=== PATIENT | female | born 1945 | race Caucasian/White ===

== ENCOUNTER 2022-12-13 11:25 | Observation (INO) ==
--- NOTE | 2022-12-13 12:15 | CT Scan Report ---
CT SCAN OF THE BRAIN WITHOUT IV CONTRAST CLINICAL HISTORY: Neurological deficit. Stroke like symptoms. COMPARISON STUDY: No priors. TECHNIQUE: Unenhanced axial CT scan of the brain is performed from the vertex to the skull base. A do se lowering technique was utilized adhering to the principles of ALARA. CT DOSE: 547.75 mGy.cm FINDINGS: Brain parenchyma: There is age-related involutional change noting mild subcortical and periventricula r microangiopathic disease. There is no hemorrhage, mass effect, or evidence of acute territorial isc hemia by CT criteria. Philip-white matter differentiation is preserved. No extra-axial fluid collection is seen. Ventricles, sulci, cisterns: Prominent secondary to involutional change. Intracranial vasculature: There is atherosclerotic calcification of the cavernous carotid and vertebr al arteries. Calvarium: Unremarkable. Sinuses and mastoids: The visualized paranasal sinuses are clear. The mastoid air cells are well pneu matized. Orbits: The bony orbits are grossly intact. There are bilateral ocular lens implants. IMPRESSION: There is no hemorrhage, mass effect, or evidence of acute territorial ischemia by CT andrea mena. ACT 112: Negative or not required by law. Electronically signed by: Wan Gotti M.D. 12/13/2022 12:14 PM
[2022-12-13 12:22] LABS: iSTAT Creatinine 2.3 mg/dl (0.6-1.3); iSTAT Hemoglobin 12.2 g/dl (12.0-16.0); iSTAT Ionized Calcium 1.26 mmol/l (1.12-1.32); iSTAT Potassium 4.4 mmol/L (3.3-5.0)
[2022-12-13 12:38] LABS: Hematocrit (blood only) 34.7 % (37.0-47.0); Hemoglobin 11.3 g/dl (12.0-16.0); Mean Corpuscular Hemoglobin 28.3 pg (25.0-34.0); Mean Corpuscular Hgb Conc 32.6 g/dL (32.0-36.0); Mean Platelet Volume 10.7 fL (9.4-12.4); Platelet Count 232 K/uL (130-400); RDW Coefficient of Variation 14.8 % (11.5-14.5); RDW Standard Deviation 47.4 fL (36.4-46.3); Red Blood Count 3.99 M/uL (4.20-5.40); White Blood Count 6.19 K/ul (4.8-10.8)
--- NOTE | 2022-12-13 12:38 | XRay Report ---
XR chest 1V not portable CLINICAL HISTORY: stroke alert TECHNIQUE: Single frontal radiograph of the chest was obtained. Comparison: None available at the time of this dictation. FINDINGS: Median sternotomy wires are unchanged. Cardiomegaly is noted. The aortic arch is calcified. The lungs are clear. No evidence of pleural effusion or pneumothorax. IMPRESSION: No acute chest disease. ACT 112: Negative or not required by law. Electronically signed by: Jakob Fairbanks M.D. 12/13/2022 12:36 PM
[2022-12-13 12:44] LABS: INR 0.9 (0.9-1.1); Partial Thromboplastin Ratio 0.9; Partial Thromboplastin Time 25.9 Seconds (21.0-31.0); Prothrombin Time 10.3 Seconds (9.0-12.0)
[2022-12-13 13:05] LABS: Albumin Globulin Ratio 1.8 (0.9-2); Albumin Level 4.4 gm/dl (3.4-5.0); BUN Creatinine Ratio 14.7 (10-20); Bilirubin,Total 0.5 mg/dl (0.2-1.0); Calcium 9.9 mg/dl (8.6-10.3); Creatinine Clr Calc Pharmacy 27.4 ml/min; Est GFR (African American) 26.4 ml/min; Est GFR (Non-African American) 22.8 ml/min; Globulin 2.5 gm/dl (2.5-4.0); Potassium 4.4 mmol/L (3.5-5.1); Total Protein 6.9 gm/dl (6.0-8.3)
[2022-12-13] MEDS ORDERED: ASPIRIN 81 MG CHEW PO STA (13:45)
[2022-12-13] MEDS ORDERED: SODIUM CHLORIDE 0.9% 500 ML IV ONE (13:45)
--- NOTE | 2022-12-13 13:48 | Emergency Department Note ---
Impression & Plan Stroke-like symptoms, Sudden visual loss of left eye ED Provider Note Name: PERLA COONEY Age: 77 Sex: F Arrives Via: Walk-In Informant: Patient ED Provider: Terrence Fine MD Chief Complaint: Visual changes Impression: As per impressions above Medical Decision Making: Pleasant 77-year-old female arrives for evaluation of visual changes and some mild ataxia. She has a history of diabetes, hypertension, dyslipidemia, CKD and was recently hospitalized for what sounds to be Takotsubo's and has an external defibrillator in place. Patient is on aspirin 81 mg daily without history of stroke or CAD. Does not take any blood thinners. Patient was seen by nutrition and dietetics instructor today who advised she go to the ER for evaluation. Patient on exam no neurodeficits other than she has loss of central visual acuity. Given concerns that she may have had CVA will need to come in for further work-up. Patient is agreeable to this and hospitalist was consulted for further manag ement. She was given a full dose aspirin 324 mg p.o. Of note initial CT head and labs are unremarkable other than her creatinine is 2.0. This will hold off on CT angio of the head and neck. Of note symptoms have been ongoing for now at least the last 4 days. There is no indication for interventional neurology or thrombolytics at this time. Triage/Nursing Notes reviewed by Me Differentials:Stroke, retinal artery occlusion, venous occlusion, dissection, intracranial hemorrhage, mass effect, electrolyte imbalance, retinal bleed amongst many other pathologies considered Vital Signs: reviewed and remarkable for no significant abnormalities Interventions: Aspirin 324 mg p.o., normal saline bolus Labs:Reviewed and remarkable for elevated creatinine patient unsure what her baseline is. All other labs reviewed by me Imaging:CT of the head without contrast as per my informal interpretation reveals no intracranial hemorrhage or mass effect. This was confirmed by radiologist. EKG:As per my interpretation. Indication strokelike symptoms. Bundle-branch block at 80 bpm. No ectopy or ischemia no previous for comparison. Cardiac/Tele Monitoring: Cardiac Monitoring: An Order was placed for continuous cardiac monitoring. The monitor shows a rate of 80 with a normal sinus rhythm. Consults:João joyner service Plan: Disposition:Hospitalization Condition: Good History of Present Illness:77-year-old female arrives for evaluation of neurologic deficits. Patient notes on Dheeraj (4 days ago) she started having left visual issues. She states she just cannot see anything in the center of her vision but that peripheral seems to be working. She denies any issues with her right eye. She also notes at this time she felt like she just could not be walking straight and has been using her cane more. Patient denies any weakness in arms or legs or paresthesias. Denies any falls, trauma, injuries. No associated nausea vomiting dizziness. No medications prior to arrival. She has no history of stroke. Patient was recently hospitalized at [facility] for chest pain. She had a catheterization at that time which she states was clean. She states she is wearing a vest because her heart is not squeezing well enough. Past History:Diabetes, hypertension, dyslipidemia, CKD Home Medications:Lisinopril, hydrochlorothiazide, statin, aspirin 81 mg Allergies:nkda Vitals:Blood Pressure: 179/77, Pulse 84, RR 18, T 36.7C, O2 98% on RA Physical Exam: GENERAL: Patient is well appearing and in no acute distress. EYES: No scleral icterus, unremarkable pupils. ENT: Mucous membranes moist, no nasal congestion. NECK: No masses appreciated, nomeningismus, trachea is midline. RESPIRATORY: No dyspnea. Clear to auscultation and equal bilaterally. No wheeze, no rhonchi. CARDIOVASCULAR: Regular rate and rhythm.No murmurs, rubs, gallops appreciated. GASTROINTESTINAL: Abdomen soft, non-tender, no peritonitis.Bowel sounds positive.No masses appreciated. BACK: No midline tenderness, no CVA tenderness EXTREMITIES: Normal motion all extremities, no cyanosis, no edema. NEUROLOGIC: Alert and oriented, patient unable to really visualize anything in the central vision on the left eye but otherwise no focal neurologic deficits appreciated SKIN: No rash, no jaundice, no diaphoresis. PSYCH: Appropriate GCS: 15 ED Course: Times/Reassessments: Patient stable no distress denies any significant concerns Terrence Fine MD Past Med/Surg History Medical History (Updated 12/13/22 @ 14:51 by Terrence Fine MD) Ambulatory dysfunction Depression Diabetes mellitus type 2 in nonobese HLD (hyperlipidemia) Stroke-like symptoms Takotsubo syndrome Social History Smoking Status: Never smoker Feels Safe at Home: Yes Allergies Allergies Allergy/AdvReac Type Severity Reaction Status Date / Time No Known Allergies Allergy Unverified 12/13/22 14:20 Home Meds Home Medications Medication Instructions Recorded Confirmed aspirin 81 mg tablet,delayed 81 mg PO QAM 12/13/22 12/13/22 release atorvastatin 80 mg tablet 80 mg PO QAM 12/13/22 12/13/22 buspirone 10 mg tablet 10 mg PO HS 12/13/22 12/13/22 dapagliflozin propanediol 10 mg 10 mg PO QAM 12/13/22 12/13/22 tablet (Farxiga) escitalopram oxalate 10 mg tablet 10 mg PO QAM 12/13/22 12/13/22 famotidine 20 mg tablet 20 mg PO QAM 12/13/22 12/13/22 furosemide 20 mg tablet 20 mg PO QAM 12/13/22 12/13/22 hydroxyzine HCl 25 mg tablet 25 mg PO DAILY PRN Panic Attack(S) 12/13/22 12/13/22 lisinopril 20 mg tablet 40 mg PO QAM 12/13/22 12/13/22 metoprolol succinate 50 mg 50 mg PO QAM 12/13/22 12/13/22 tablet,extended release 24 hr Results & Data (ED) Vital Signs Vital Signs - 24 hr 12/13/22 11:33 12/13/22 13:34 12/13/22 13:34 Temperature 36.7 C Temperature Source Temporal Artery Scan Pulse Rate 84 Pulse Rate [Apical] Pulse Rhythm [Apical] Respiratory Rate 18 Blood Pressure 179/77 H Blood Pressure [Right Arm] Blood Pressure Mean 111 Blood Pressure Mean [Right Arm] Blood Pressure Position Sitting Pulse Oximetry 99 98 98 Oxygen Delivery Method Room Air Room Air Sepsis New/Unexplained Change in Mental Status N/A Sepsis Action Taken by Nursing No Action Required 12/13/22 13:45 12/13/22 14:01 Temperature Temperature Source Pulse Rate 84 Pulse Rate [Apical] 78 Pulse Rhythm [Apical] Regular Respiratory Rate 20 Blood Pressure Blood Pressure [Right Arm] 156/67 H Blood Pressure Mean Blood Pressure Mean [Right Arm] 96 Blood Pressure Position Pulse Oximetry 98 Oxygen Delivery Method Room Air Sepsis New/Unexplained Change in Mental Status Sepsis Action Taken by Nursing Laboratory Data 12/13/22 12:04 12/13/22 12:04 Lab Results 12/13/22 12/13/22 12/13/22 Range/Units 12:04 12:04 12:04 WBC 6.19 (4.8-10.8) K/ul RBC 3.99 L (4.20-5.40) M/uL Hgb 11.3 L (12.0-16.0) g/dl POC Hgb (12.0-16.0) g/dl Hct 34.7 L (37.0-47.0) % POC Hct (37-47) % MCV 87.0 (80.0-100.0) fL MCH 28.3 (25.0-34.0) pg MCHC 32.6 (32.0-36.0) g/dL RDW Std Deviation 47.4 H (36.4-46.3) fL RDW Coeff of David 14.8 H (11.5-14.5) % Plt Count 232 (130-400) K/uL MPV 10.7 (9.4-12.4) fL PT 10.3 (9.0-12.0) Seconds INR 0.9 (0.9-1.1) APTT 25.9 (21.0-31.0) Seconds PTT Ratio 0.9 POC Sodium (135-144) mmol/L Sodium 139 (136-145) mmol/L POC Potassium (3.3-5.0) mmol/L Potassium 4.4 (3.5-5.1) mmol/L POC Chloride (101-112) mmol/L Chloride 108 H (98-107) mmol/L Carbon Dioxide 23 (21-32) mmol/L POC Total CO2 (24-31) mmol/L Anion Gap 8 (3-11) POC Anion Gap (16-25) mmol/L POC BUN (7-18) mg/dl BUN 30 H (6-23) mg/dl Creatinine 2.04 H (0.6-1.2) mg/dl POC Creatinine (0.6-1.3) mg/dl Est Cr Clr Drug Dosing 27.4 ml/min Est GFR ( Amer) 26.4 ml/min Est GFR (Non-Af Amer) 22.8 ml/min BUN/Creatinine Ratio 14.7 (10-20) Glucose 116 H (70-99(Fasting)) mg/dl POC Glucose (70-99) mg/dl POC Glucose (other) (70-99) mg/dl Calcium 9.9 (8.6-10.3) mg/dl POC Ioniz Calcium Gerald (1.12-1.32) mmol/l Magnesium 2.0 (1.7-2.4) mg/dl Total Bilirubin 0.5 (0.2-1.0) mg/dl AST 19 (13-39) U/L ALT 12 (7-52) U/L Alkaline Phosphatase 98 (34-104) U/L Total Protein 6.9 (6.0-8.3) gm/dl Albumin 4.4 (3.4-5.0) gm/dl Globulin 2.5 (2.5-4.0) gm/dl Albumin/Globulin Ratio 1.8 (0.9-2) 12/13/22 12/13/22 Range/Units 12:10 14:25 WBC (4.8-10.8) K/ul RBC (4.20-5.40) M/uL Hgb (12.0-16.0) g/dl POC Hgb 12.2 (12.0-16.0) g/dl Hct (37.0-47.0) % POC Hct 36 L (37-47) % MCV (80.0-100.0) fL MCH (25.0-34.0) pg MCHC (32.0-36.0) g/dL RDW Std Deviation (36.4-46.3) fL RDW Coeff of David (11.5-14.5) % Plt Count (130-400) K/uL MPV (9.4-12.4) fL PT (9.0-12.0) Seconds INR (0.9-1.1) APTT (21.0-31.0) Seconds PTT Ratio POC Sodium 141 (135-144) mmol/L Sodium (136-145) mmol/L POC Potassium 4.4 (3.3-5.0) mmol/L Potassium (3.5-5.1) mmol/L POC Chloride 107 (101-112) mmol/L Chloride (98-107) mmol/L Carbon Dioxide (21-32) mmol/L POC Total CO2 22 L (24-31) mmol/L Anion Gap (3-11) POC Anion Gap 17.0 (16-25) mmol/L POC BUN 29 H (7-18) mg/dl BUN (6-23) mg/dl Creatinine (0.6-1.2) mg/dl POC Creatinine 2.3 H (0.6-1.3) mg/dl Est Cr Clr Drug Dosing ml/min Est GFR ( Amer) ml/min Est GFR (Non-Af Amer) ml/min BUN/Creatinine Ratio (10-20) Glucose (70-99(Fasting)) mg/dl POC Glucose 131 H (70-99) mg/dl POC Glucose (other) 115 H (70-99) mg/dl Calcium (8.6-10.3) mg/dl POC Ioniz Calcium Gerald 1.26 (1.12-1.32) mmol/l Magnesium (1.7-2.4) mg/dl Total Bilirubin (0.2-1.0) mg/dl AST (13-39) U/L ALT (7-52) U/L Alkaline Phosphatase (34-104) U/L Total Protein (6.0-8.3) gm/dl Albumin (3.4-5.0) gm/dl Globulin (2.5-4.0) gm/dl Albumin/Globulin Ratio (0.9-2) Administered Medications Discontinued Medications Aspirin (Aspirin 81 Mg Chew) 324 mg PO NOW STA Stop: 12/13/22 13:46 Last Admin: 12/13/22 13:57 Dose: 324 mg Documented By: ARLENE Sodium Chloride (Nss 1000ml) 500 mls @ 999 mls/hr IV .Q31M ONE Stop: 12/13/22 14:15 Last Admin: 12/13/22 13:57 Dose: 999 mls/hr Documented By: ARLENE Imaging Data Radiologist's Impression: Chest X-Ray 12/13/22 11:44 XR chest 1V not portable CLINICAL HISTORY: stroke alert TECHNIQUE: Single frontal radiograph of the chest was obtained. Comparison: None available at the time of this dictation. FINDINGS: Median sternotomy wires are unchanged. Cardiomegaly is noted. The aortic arch is calcified. The lungs are clear. No evidence of pleural effusion or pneumothorax. IMPRESSION: No acute chest disease. ACT 112: Negative or not required by law. Electronically signed by: Jakob Fairbanks M.D. 12/13/2022 12:[address] 12/13/22 11:44 CT SCAN OF THE BRAIN WITHOUT IV CONTRAST CLINICAL HISTORY: Neurological deficit. Stroke like symptoms. COMPARISON STUDY: No priors. TECHNIQUE: Unenhanced axial CT scan of the brain is performed from the vertex to the skull base. A dose lowering technique was utilized adhering to the principles of ALARA. CT DOSE: 547.75 mGy.cm FINDINGS: Brain parenchyma: There is age-related involutional change noting mild subcortical and periventricular microangiopathic disease. There is no hemorrhage, mass effect, or evidence of acute territorial ischemia by CT criteria. Philip-white matter differentiation is preserved. No extra-axial fluid collection is seen. Ventricles, sulci, cisterns: Prominent secondary to involutional change. Intracranial vasculature: There is atherosclerotic calcification of the cavernous carotid and vertebral arteries. Calvarium: Unremarkable. Sinuses and mastoids: The visualized paranasal sinuses are clear. The mastoid air cells are well pneumatized. Orbits: The bony orbits are grossly intact. There are bilateral ocular lens implants. IMPRESSION: There is no hemorrhage, mass effect, or evidence of acute territorial ischemia by CT criteria. ACT 112: Negative or not required by law. Electronically signed by: Wan Gotti M.D. 12/13/2022 12:14 PM Discharge Plan Visit Data Chief Complaint: Stroke/CVA Symptoms Stated Complaint: GETTING TEST DONE ON EYE, REF BY DOC ED Provider: Terrence Fine Discharge Problem: Stroke-like symptoms, Sudden visual loss of left eye Forms Stand Alone Forms: My [facility] [employer] Prescriptions Prescriptions: No Action atorvastatin 80 mg tablet 80 mg PO QAM metoprolol succinate 50 mg tablet extended release 24 hr 50 mg PO QAM lisinopril 20 mg tablet 40 mg PO QAM buspirone 10 mg tablet 10 mg PO HS furosemide 20 mg tablet 20 mg PO QAM Rx Instructions: take 2nd dose 6 hours later for 3 lb weight gain overnight famotidine 20 mg tablet 20 mg PO QAM escitalopram oxalate 10 mg tablet 10 mg PO QAM Farxiga 10 mg tablet 10 mg PO QAM hydroxyzine HCl 25 mg tablet 25 mg PO DAILY PRN (Reason: Panic Attack(S)) aspirin [Aspirin Low-Strength] 81 mg Tablet,Delayed Release (Dr/Ec) 81 mg PO QAM Referrals Referrals: PCP,NO [Physician] -
[2022-12-13] MEDS ORDERED: MAGNESIUM HYDROXIDE SUSP 30 ML UDC PO PRN (13:58)
[2022-12-13] MEDS ORDERED: ONDANSETRON INJ 2 MG/ML 2 ML VIAL IV PRN (13:58)
[2022-12-13] MEDS ORDERED: POLYETHYLENE (MIRALAX) 17 GM PACK PO PRN (13:58)
[2022-12-13] MEDS ORDERED: ALUMINUM/MAGNESIUM SUSP 30 ML UDC PO PRN (13:58)
[2022-12-13] MEDS ORDERED: ACETAMINOPHEN 325 MG TAB PO PRN (13:58)
--- NOTE | 2022-12-13 14:04 | History & Physical Report ---
Date of Service December 13, 2022 Assessment & Plan (1) Central retinal artery occlusion of left eye: (2) CKD stage 3 due to type 2 diabetes mellitus: (3) HTN (hypertension): (4) HLD (hyperlipidemia): (5) Diabetes mellitus type 2 in nonobese: (6) History of aortic valve replacement using Konno procedure: (7) Takotsubo syndrome: (8) Depression: Plan 77-year-old female that presented to the ED today with complaints of left visual changes that started on Sunday. Reports peripheral vision okay. Seen by [place] retinal specialist today and Dx with central retinal left artery occlusion (CRAO) and advised to proceed to the ER. In the ED chest x- ray negative for acute cardiopulmonary disease, head CT without contrast negative for ICH/midline shift. Patient presented to [facility] on September 20 with chest pain proceeding with heart catheterization showing epicardial CAD; ECHO at that point was EF 30 to 35%. Has an external ICD for treatment of Takotsubo. She sees Dr. Gardner in [place] from Cardiology. Progressive CKD since 2019, baseline creatinine in mid ones, nonproteinuric. Recent decline in recent renal function secondary to overdiuresis/UTIs. Outpatient renal ultrasound normal kidney size with cysts. Additional PMH includes CAD status post bioprosthetic aortic replacement and [facility] 2011, HTN, depression, and NIDDM. No leukocytosis. Creatinine 2.04. Baseline creatinine 1.3-1.7; today 2.01. Closely follow renal function. Full stroke work up, head/neck CTA, ECHO, CRP, ESR, MRI as external defibrillator can be removed neurology consult based on results. Patient already on high-dose and baby aspirin; not on any anticoagulation; per recommendations by Neurology via [place] [facility]. Central retinal artery occlusion (CRAO) of left eye: Head CT without contrast negative MRI ordered (external defibrillator) Head/neck CTA ordered ECHO ordered Start Plavix per recommendations by Neuro via [facility] On a high-dose statin and received ASA 324 in ED Neurology consult if abnormalities noted on neuro imaging. CKD stage III: acute uncontrolled Progressive CKD since 2019, baseline creatinine in mid ones, nonproteinuric. Recent decline in recent renal function secondary to overdiuresis/UTIs per [facility]. Creatinine 2.04 today; will hold nephrotoxic agents. Closely monitor renal function; BMP in AM HTN: Chronic stable Takes metoprolol and lisinopril Continue metoprolol; hold lisinopril due to nephrotoxicity HLD: Chronic stable Takes high-dose atorvastatin; continue Check fasting lipid panel in AM Depression: Chronic stable Takes buspirone; continue Diabetes mellitus type 2: Chronic stable Last A1c 7.0; recheck while inpatient Takes SGLT2 inhibitor Farxiga; continue Takotsubo syndrome: acute uncontrolled As Life[employer]est and external AICD on Follows with [facility] Cardiology History of aortic valve replacement using Kono procedure: chronic stable 2011 at [facility] Follows with Dr. Gardner at [facility] Disposition: PCP: Dr. Jade CODE STATUS: Full code VTE prophylaxis: Lovenox SQ I spent a total of 88 minutes coordinating, documenting, and providing care for this patient excluding time spent in the performance of separately billed services. All of the aforementioned completed while collaborating with the assigned attending physician for a full treatment plan. Please see their addendum for further details. History of Present Illness Chief Complaint: ambulatory dysfunction and visual changes Primary Care Provider: Elías Jade MD Ms. Rodríguez is a 77-year-old female that presented to the ED today with complaints of left visual changes that started on Sunday. Reports unique pheral vision okay. Was seen by [place] retinal specialist today Dr. Gauthier and diagnosed with central retinal left artery occlusion and advised to proceed to the ER. In the ED chest x-ray negative for acute cardiopulmonary disease, head CT without contrast negative for ICH/midline shift. Patient presented to [facility] on September 20 with chest pain proceeding with heart catheterization showing epicardial CAD; ECHO at that point was EF 30 to 35%. Has an external ICD for treatment of Takotsubo. She sees Dr. Gardner in [place] from Cardiology. Progressive CKD since 2019, baseline creatinine in mid ones, nonproteinuric. Recent decline in recent renal function secondary to overdiuresis/UTIs. Outpatient renal ultrasound normal kidney size with cysts. Additional PMH includes CAD status post bioprosthetic aortic replacement and [facility] 2011, HTN, depression, and NIDDM. Today chest x-ray negative for acute cardiopulmonary disease, head CT negative ICH or midline shift. No leukocytosis. Creatinine 2.04. Baseline creatinine Pt denies SCOTT, dizziness, tinnitus, abdominal pain or tenderness, LOC, vertigo symptoms, recent illness, urinary or bowel changes, recent falls or trauma. Pt [place] but able to answer all questions appropriately. Patient AAOx4. CN II through XII grossly intact. Euvolemic on exam Repeat ECHO, CRP, ESR, MRI as external defibrillator can be removed neurology consult. Patient already on high-dose and baby aspirin; not on any anticoagulation. Patient will be admitted for further evaluation and management. Please see A/P for further details. Allergies Allergy/AdvReac Type Severity Reaction Status Date / Time No Known Allergies Allergy Unverified 12/13/22 14:20 Home Medications Medication Instructions Recorded Confirmed Type aspirin 81 mg tablet,delayed 81 mg PO QAM 12/13/22 12/13/22 History release atorvastatin 80 mg tablet 80 mg PO QAM 12/13/22 12/13/22 History buspirone 10 mg tablet 10 mg PO HS 12/13/22 12/13/22 History dapagliflozin propanediol 10 mg 10 mg PO QAM 12/13/22 12/13/22 History tablet (Farxiga) famotidine 20 mg tablet 20 mg PO QAM 12/13/22 12/13/22 History furosemide 20 mg tablet 20 mg PO QAM 12/13/22 12/13/22 History hydroxyzine HCl 25 mg tablet 25 mg PO DAILY PRN Panic Attack(S) 12/13/22 12/13/22 History lisinopril 20 mg tablet 40 mg PO QAM 12/13/22 12/13/22 History metoprolol succinate 50 mg 50 mg PO QAM 12/13/22 12/13/22 History tablet,extended release 24 hr Past Med/Surg History Medical History (Updated 12/13/22 @ 15:35 by RODRIGUEZ Rai) Ambulatory dysfunction 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 Depression Diabetes mellitus type 2 in nonobese HLD (hyperlipidemia) HTN (hypertension) Stroke-like symptoms Takotsubo syndrome Surgical History (Updated 12/13/22 @ 15:35 by RODRIGUEZ Rai) History of aortic valve replacement using Konno procedure Social History Smoking Status: Never smoker Feels Safe at Home: Yes Review of Systems Review of Systems: Neuro: (-) Falls, trauma, slurred speech HEENT: (-) SCOTT, dizziness, dysphagia, visual or auditory changes CV: (-) CP, palpitations, swelling Resp: (-) SOB GI: (-) appetite changes, N/V/D, bowel changes : (-) urinary changes Skin: (-) rashes Psych: (-) anxiety, depression Physical Exam Physical Exam: Neuro: AAOx4, PERRLA, no aphagia, memory changes, CNII-XII grossly intact HEENT: head normocephalic, moist mucus membranes CV: S1/S2, (-) M/G/R, (-) edema, cap refill < 3 seconds Resp: Lungs CTA in all [place]. On RA GI: Abdomen S/NT/ND, Ax4 bowel sounds, (-) CVA tenderness Musculoskeletal: 5/5 B/L UE strength, 5/5 B/L LE strength. No gait disturbance Skin: (-) rashes , (-) erythema. Psych: euthymic mood Results & Data Results & Data Vital Signs (Past 12 Hours) Vital Signs Temp Pulse Pulse Resp BP BP Pulse Ox 12/13/22 13:45 78 20 156/67 H 98 12/13/22 13:34 98 12/13/22 13:34 98 12/13/22 11:33 36.7 C 84 18 179/77 H 99 O2 Del Method 12/13/22 13:45 Room Air 12/13/22 13:34 12/13/22 13:34 Room Air 12/13/22 11:33 Room Air Laboratory Results Short CBC 12/13/22 Range/Units 12:04 WBC 6.19 (4.8-10.8) K/ul Hgb 11.3 L (12.0-16.0) g/dl Hct 34.7 L (37.0-47.0) % Plt Count 232 (130-400) K/uL BMP 12/13/22 12:04 Sodium 139 Potassium 4.4 Chloride 108 H Carbon Dioxide 23 BUN 30 H Creatinine 2.04 H Glucose 116 H Calcium 9.9 Liver Function 12/13/22 Range/Units 12:04 Total Bilirubin 0.5 (0.2-1.0) mg/dl AST 19 (13-39) U/L ALT 12 (7-52) U/L Alkaline Phosphatase 98 (34-104) U/L Albumin 4.4 (3.4-5.0) gm/dl Diagnostic Findings Chest X-Ray 12/13/22 11:44 XR chest 1V not portable CLINICAL HISTORY: stroke alert TECHNIQUE: Single frontal radiograph of the chest was obtained. Comparison: None available at the time of this dictation. FINDINGS: Median sternotomy wires are unchanged. Cardiomegaly is noted. The aortic arch is calcified. The lungs are clear. No evidence of pleural effusion or pneumothorax. IMPRESSION: No acute chest disease. ACT 112: Negative or not required by law. Electronically signed by: Jakob Fairbanks M.D. 12/13/2022 12:[address] 12/13/22 11:44 CT SCAN OF THE BRAIN WITHOUT IV CONTRAST CLINICAL HISTORY: Neurological deficit. Stroke like symptoms. COMPARISON STUDY: No priors. TECHNIQUE: Unenhanced axial CT scan of the brain is performed from the vertex to the skull base. A dose lowering technique was utilized adhering to the principles of ALARA. CT DOSE: 547.75 mGy.cm FINDINGS: Brain parenchyma: There is age-related involutional change noting mild subcortical and periventricular microangiopathic disease. There is no hemorrhage, mass effect, or evidence of acute territorial ischemia by CT criteria. Philip-white matter differentiation is preserved. No extra-axial fluid collection is seen. Ventricles, sulci, cisterns: Prominent secondary to involutional change. Intracranial vasculature: There is atherosclerotic calcification of the cavernous carotid and vertebral arteries. Calvarium: Unremarkable. Sinuses and mastoids: The visualized paranasal sinuses are clear. The mastoid air cells are well pneumatized. Orbits: The bony orbits are grossly intact. There are bilateral ocular lens implants. IMPRESSION: There is no hemorrhage, mass effect, or evidence of acute territorial ischemia by CT criteria. ACT 112: Negative or not required by law. Electronically signed by: Wan Gotti M.D. 12/13/2022 12:14 PM Code Status & VTE Plan Code Status Full code in the event of cardiac or respiratory arrest VTE Prophylaxis Plan VTE Prophylaxis will be ordered: Yes Supervising Physician Co-Signing Physician Notes Pt seen and examined by pa, care coordinated w/ Hattie. RODRIGUEZ Loya, pls refer to her note above for further detail. Pt is a 77 yo F that presents with complaints of left central visual loss that started on Sunday. Reports peripheral vision okay. Seen by [place] retinal specialist today and was diagnosed with central retinal left artery occlusion (CRAO) and advised to proceed to the ER. In the ED chest x-ray negative for acute cardiopulmonary disease, head CT without contrast negative for ICH/midline shift. Currently she is laying in bed in NAD. Denies any headache or eye pain. Feels that vision maybe slightly better. She received ASA 324 mg in the ED. At home takes atorvastatin 80 and ASA 81. She is awake and able to answer questions appropriately. No weakness in any extremities. No sensory loss. Lungs are clear to auscultation. Heart sounds regular. Abdomen obese, soft, nontender. Skin is warm and dry. Pertinent recent medical hx - Patient presented to [facility] on September 20 with chest pain proceeding with heart catheterization showing epicardial CAD; ECHO at that point was EF 30 to 35%. Has an external ICD for treatment of Takotsubo. She sees Dr. Gardner in [place] from Cardiology. Progressive CKD since 2019, baseline creatinine in mid ones, nonproteinuric. Recent decline in recent renal function secondary to overdiuresis/UTIs. Additional PMH includes CAD status post bioprosthetic aortic replacement at [facility] 2011, HTN, depression, and NIDDM. Discussed w/ neurology - Brain MRI ordered, obtain CTA head and neck (and monitor renal function closely given contrast), echo. Patient already on high- dose statin and baby aspirin -> will switch to plavix. Cont. to closely monitor. Discuss further w/ neurology if imaging studies abnormal. MD Annie
[2022-12-13] MEDS: Patient's ALLERGY Info needs ENTERED SCH ×5 (14:42→18:25)
[2022-12-13] MEDS: CLOPIDOGREL BISULFATE 75 MG TAB PO SCH (18:12)
[2022-12-13] MEDS: ATORVASTATIN 40 MG TAB PO SCH (18:12)
[2022-12-13] MEDS: METOPROLOL SUCC 50MG EXT REL TAB PO SCH (18:13)
[2022-12-13] MEDS: FAMOTIDINE 20 MG TAB PO SCH (18:13)
--- NOTE | 2022-12-13 19:33 | Magnetic Resonance Report ---
MR ANGIOGRAM OF THE NECK WITHOUT IV CONTRAST CLINICAL HISTORY: Strokelike symptoms. COMPARISON STUDY: No priors. TECHNIQUE: Axial 2-D and 3-D [id number] MR angiography of the neck is performed. 3-D reformats ar e created and assessed. All measurements were calculated based on NASCET criteria. IV contrast was no t administered for this examination. FINDINGS: Visualized portions of the thoracic aorta are normal in caliber. The aortic arch demonstrat es bovine variant anatomy. The subclavian arteries appear patent bilaterally. The right common caroti d artery is widely patent, as are the right internal and external carotid arteries. The left common c arotid artery is widely patent, as are the left internal and external carotid arteries. The vertebral arteries are widely patent. The vertebral arteries are codominant. The visualized intracranial vesse ls at the skull base appear patent. IMPRESSION: Unremarkable unenhanced MR angiogram of the neck. ACT 112: Negative or not required by law. Electronically signed by: Wan Gotti M.D. 12/13/2022 7:32 PM
--- NOTE | 2022-12-13 19:36 | Magnetic Resonance Report ---
MR ANGIOGRAM OF THE BRAIN CLINICAL HISTORY: Blurry vision. Stroke like symptoms. COMPARISON STUDY: No priors. TECHNIQUE: 3-D [id number] MR angiography of the intracranial circulation is performed. 3-D tumble views are created and assessed. IV contrast was not administered for this examination. FINDINGS: The internal carotid arteries are widely patent bilaterally, as are the anterior and middle cerebral arteries. The right A1 segment is atretic. The vertebrobasilar system and posterior cerebra l arteries are widely patent. The vertebral arteries are codominant. There is origin of the rig ht posterior cerebral artery. There is no aneurysm, high-grade stenosis, or focal vessel cutoff seen throughout the intracranial circulation. The brain parenchyma is normal as visualized. IMPRESSION: Unremarkable MR angiogram of the brain. ACT 112: Negative or not required by law. Electronically signed by: Wan Gotti M.D. 12/13/2022 7:35 PM
[2022-12-13] MEDS ORDERED: busPIRone 5 MG TAB PO SCH (21:00)
[2022-12-13] MEDS ORDERED: GLUCOSE 40% GEL 15 GM TUBE PO PRN (21:15)
[2022-12-13] MEDS ORDERED: DEXTROSE 50% 50 ML SYRINGE IV PRN (21:15)
[2022-12-13] MEDS ORDERED: CARBOHYDRATES FOR HYPOGLYCEMIA PO PRN (21:15)
[2022-12-13] MEDS ORDERED: GLUCAGON FOR INJ 1 MG VIAL SQ PRN (21:15)
[2022-12-13] MEDS ORDERED: GLUCOSE 10 TAB/TUBE PO PRN (21:15)
[2022-12-13] MEDS ORDERED: PHARMACY GLYCEMIC MGMT CONSULT PRN (21:15)
[2022-12-14 06:28] LABS: Hematocrit (blood only) 30.8 % (37.0-47.0); Hemoglobin 9.9 g/dl (12.0-16.0); Mean Corpuscular Hemoglobin 27.9 pg (25.0-34.0); Mean Corpuscular Hgb Conc 32.1 g/dL (32.0-36.0); Mean Corpuscular Volume 86.8 fL (80.0-100.0); Mean Platelet Volume 10.2 fL (9.4-12.4); Platelet Count 197 K/uL (130-400); RDW Coefficient of Variation 14.8 % (11.5-14.5); RDW Standard Deviation 47.8 fL (36.4-46.3); Red Blood Count 3.55 M/uL (4.20-5.40); White Blood Count 4.88 K/ul (4.8-10.8)
[2022-12-14 06:46] LABS: Albumin Globulin Ratio 1.4 (0.9-2); Albumin Level 3.6 gm/dl (3.4-5.0); BUN Creatinine Ratio 15.2 (10-20); Bilirubin,Total 0.6 mg/dl (0.2-1.0); Calcium 9.6 mg/dl (8.6-10.3); Chol HDL Ratio 2.9 (0-5); Creatinine Clr Calc Pharmacy 27.8 ml/min; Est GFR (African American) 27.4 ml/min; Est GFR (Non-African American) 23.6 ml/min; Globulin 2.6 gm/dl (2.5-4.0); Potassium 4.6 mmol/L (3.5-5.1); Total Protein 6.2 gm/dl (6.0-8.3)
[2022-12-14 07:17] LABS: Estimated Average Glucose 166 mg/dl; Hemoglobin A1C 7.4 % (4.5-5.6)
--- NOTE | 2022-12-14 07:39 | Ultrasound Report ---
CAROTID ARTERY ULTRASOUND CLINICAL HISTORY: Central retinal artery occlusion. COMPARISON STUDY: MRA of the neck December 13, 2022. TECHNIQUE: Real-time, grayscale, and color Doppler sonography of the carotid and vertebral arteries w as performed. Images were viewed in the transverse and longitudinal planes. FINDINGS: There is mild atherosclerotic plaque. Velocity measurements are listed below. COMMON CAROTID PEAK SYSTOLIC VELOCITY (CM/S): RIGHT 88 LEFT 94 ICA PEAK SYSTOLIC VELOCITY (CM/S): RIGHT 84 LEFT 117 Systolic ratios between the internal to common carotid arteries were normal. Antegrade flow is seen in the vertebral arteries. The external carotid arteries are patent. IMPRESSION: Mild atherosclerotic plaque without evidence for a hemodynamically significant stenosis. ACT 112: Negative or not required by law. Electronically signed by: Arnaldo Vinson M.D. 12/14/2022 7:38 AM
[2022-12-14] MEDS: ATORVASTATIN 40 MG TAB PO SCH (08:45)
[2022-12-14] MEDS: CLOPIDOGREL BISULFATE 75 MG TAB PO SCH (08:46)
[2022-12-14] MEDS: METOPROLOL SUCC 50MG EXT REL TAB PO SCH (08:46)
[2022-12-14] MEDS: FAMOTIDINE 20 MG TAB PO SCH (08:46)
[2022-12-14] MEDS: INSULIN ASPART PER UNIT CHARGE SC SCH ×2 (08:51→12:10)
[2022-12-14] MEDS ORDERED: LANTUS PER UNIT CHARGE SQ SCH ×2 (09:00)
[2022-12-14] MEDS ORDERED: ASPIRIN 81 MG ECTAB PO SCH (09:00)
--- NOTE | 2022-12-14 10:28 | Ultrasound Report ---
BILATERAL LOWER EXTREMITY VENOUS DOPPLER CLINICAL HISTORY: Lower extremity pain. Evaluate for DVT. COMPARISON STUDY: No previous studies for comparison. TECHNIQUE: Sonography of the deep venous system of the bilateral lower extremities was performed. Co mpression and augmentation were evaluated. FINDINGS: The bilateral common femoral, superficial femoral and popliteal veins were compressible. A ugmentation was normal. Flow was shown within the deep calf vessels. IMPRESSION: No evidence of deep venous thrombus within the bilateral lower extremities. ACT 112: Negative or not required by law. Electronically signed by: Arnaldo Vinson M.D. 12/14/2022 10:27 AM
--- NOTE | 2022-12-14 10:29 | Pharmacy Report ---
Pharmacy Glycemic Short Note 2 - Date of Service December 14, 2022 - Glycemic Short BSG Results (Last 24 hours): 12/13/22 12/13/22 12/13/22 12:04 12:10 14:25 Glucose 116 H POC Glucose 131 H POC Glucose (other) 115 H 12/13/22 12/14/22 12/14/22 20:49 05:56 07:35 Glucose 126 H POC Glucose 168 H 136 H POC Glucose (other) OUTPATIENT ANTIDIABETIC REGIMEN: * Dapagliflozin * HbA1c 7.4% on 12/14/22 ASSESSMENT: * 77 yo F with T2DM admitted with retinal artery occlusion * BSG's have been good * Will initiate very low dose Lantus, and scaled based on BSG * Will adjust Novolog to weight-based moderate stress estimate PLAN FOR INPATIENT GLYCEMIC CONTROL: * Hold outpatient oral diabetes medication * Basal insulin * Lantus 0-10 units SQ BID based on BSG * Bolus insulin * NovoLog per scale ACHS or Q6hrs while NPO * Goal Range: Low 120 mg/dL - High 160 mg/dL * Correction Factor: 25 mg/dL/unit * Nutritional / Prandial insulin per carb ratio of 1 unit per 8 grams CHO consumed
--- NOTE | 2022-12-14 12:40 | Discharge Summary ---
Date of Service December 14, 2022 Admission HPI Per Admitting Provider Ms. Rodríguez is a 77-year-old female that presented to the ED today with complaints of left visual changes that started on Sunday. Reports peripheral vision okay. Was seen by [place] retinal specialist today Dr. Gauthier and diagnosed with central retinal left artery occlusion and advised to proceed to the ER. In the ED chest x-ray negative for acute cardiopulmonary disease, head CT without contrast negative for ICH/midline shift. Patient presented to [facility] on September 20 with chest pain proceeding with heart catheterization showing epicardial CAD; ECHO at that point was EF 30 to 35%. Has an external ICD for treatment of Takotsubo. She sees Dr. Gardner in [place] from Cardiology. Progressive CKD since 2019, baseline creatinine in mid ones, nonproteinuric. Recent decline in recent renal function secondary to overdiuresis/UTIs. Outpatient renal ultrasound normal kidney size with cysts. Additional PMH includes CAD status post bioprosthetic aortic replacement and [facility] 2011, HTN, depression, and NIDDM. Today chest x-ray negative for acute cardiopulmonary disease, head CT negative ICH or midline shift. No leukocytosis. Creatinine 2.04. Baseline creatinine Pt denies SCOTT, dizziness, tinnitus, abdominal pain or tenderness, LOC, vertigo symptoms, recent illness, urinary or bowel changes, recent falls or trauma. Pt BLACKFEET but able to answer all questions appropriately. Patient AAOx4. CN II through XII grossly intact. Euvolemic on exam Repeat ECHO, CRP, ESR, MRI as external defibrillator can be removed neurology consult. Patient already on high-dose and baby aspirin; not on any anticoagulation. Patient will be admitted for further evaluation and management. Please see A/P for further details. Admission Exam Per Admitting Provider Neuro: AAOx4, PERRLA, no aphagia, memory changes, CNII-XII grossly intact HEENT: head normocephalic, moist mucus membranes CV: S1/S2, (-) M/G/R, (-) edema, cap refill < 3 seconds Resp: Lungs CTA in all osullivan. On RA GI: Abdomen S/NT/ND, Ax4 bowel sounds, (-) CVA tenderness Musculoskeletal: 5/5 B/L UE strength, 5/5 B/L LE strength. No gait disturbance Skin: (-) rashes , (-) erythema. 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 Normal insp/exp effort, no accessory muscle use Cardiovascular: RRR, no murmur, no edema Vessels: no JVD or carotid bruit Chest: normal inspection of chest Abdomen: normal bowel sounds, soft, nontender, no hepatosplenomegaly Musculoskeletal: no cyanosis or clubbing, extremities motor strength 5/5 Skin: no rashes, warm and dry normal turgor Neurologic: PERRL, EOMI, accommodation nl, no face palsy, no dysarthria CN's II- XI intact bilaterally and moves all extremities Psychiatric: A+Ox3, euthymic affect Discharge Data Allergies Allergy/AdvReac Type Severity Reaction Status Date / Time No Known Allergies Allergy Unverified 12/13/22 14:20 Consultations 12/13/22 13:57 ED Decision to Admit Stat Ordered Studies 12/13/22 11:44 CT head/brain wo con Stat 12/13/22 17:07 MR angio head wo con Routine US carotid doppler BI Routine 12/13/22 18:16 MR angio neck wo con Routine 12/14/22 09:00 US venous duplex leg [US venous doppler LE BI] Routine Hospital Course (1) Central retinal artery occlusion of left eye: (2) CKD stage 3 due to type 2 diabetes mellitus: (3) HTN (hypertension): (4) HLD (hyperlipidemia): (5) Diabetes mellitus type 2 in nonobese: (6) History of aortic valve replacement using Konno procedure: (7) Takotsubo syndrome: (8) Depression: Plan 77-year-old female that presented to the ED today with complaints of left visual changes that started on Sunday. Reports peripheral vision okay. Seen by [place] retinal specialist on day of the admission and Dx with central retinal left artery occlusion (CRAO) and advised to proceed to the ER. In the ED chest x-ray negative for acute cardiopulmonary disease, head CT wi thout contrast negative for ICH/midline shift. MRA head and neck was done;Unremarkable MR angiogram of head and neck region. CT angio was not able to be performed due to her impaired kidney function. Echocardiogram showed EF of 40 to 45% with grade 1 diastolic dysfunction. Patent foramen ovale suspected. Venous duplex was done which did not show any DVT. Discussion was done by admitting team with on-call neurology; recommended switching aspirin to Plavix. New prescription was sent to the pharmacy. Patient was recommended to continue all her other medication as prescribed before. Patient to follow-up with PCP and cardiology as outpatient. Please note the above document was generated using voice recognition software. It may contain grammatical, syntax or spelling errors. Any formal questions or concerns about the content, text or information contained within the body of this dictation should be directly addressed to the provider for clarification Total Time Total Time Spent Total Time Spent (In Minutes): 35 Total Time Includes: Examination of the Patient, Discharge Planning, Medication Reconciliation, Communication With Other Providers and Other Discharge Plan Discharge Items Patient Disposition: Home - Self-Care Reason For Visit: AMBULATORY DYSFUNCTION/VISUAL CHANGES Discharge Diagnosis: Central retinal artery occlusion (CRAO) of left eye Activity: Resume your previous activity Non-emergency contact: Primary Care Provider Call non-emergency contact if: you have any medication questions Follow-up/Referrals: Elías Jade MD [Primary Care Provider] - Diet: Regular Addtl Attending Provider Instructions: You were admitted to the hospital for concern of occlusion of vessel of your left eye. Work-up during the hospitalization did not show any occlusion in the vessels of your head and neck. Our neurologist suggested that you switch over from aspirin to Plavix. A new prescription has been sent to your pharmacy. Stop taking aspirin. Start taking Plavix. Continue all your other medication as prescribed before. An appointment will be set up with your PCP for sometime next week. Pending Studies at Discharge: No Stand-Alone Forms: My [facility], Smoking Cessation Medications and DC Order Prescriptions: New clopidogrel 75 mg Tablet 75 mg PO QAM Qty: 30 0RF Continued atorvastatin 80 mg tablet 80 mg PO QAM metoprolol succinate 50 mg tablet extended release 24 hr 50 mg PO QAM lisinopril 20 mg tablet 40 mg PO QAM buspirone 10 mg tablet 10 mg PO HS furosemide 20 mg tablet 20 mg PO QAM Rx Instructions: take 2nd dose 6 hours later for 3 lb weight gain overnight famotidine 20 mg tablet 20 mg PO QAM Farxiga 10 mg tablet 10 mg PO QAM hydroxyzine HCl 25 mg tablet 25 mg PO DAILY PRN (Reason: Panic Attack(S)) Discontinued aspirin [Aspirin Low-Strength] 81 mg Tablet,Delayed Release (Dr/Ec) 81 mg PO QAM Discharge Orders: Discharge Order (Routine); Ordered 12/14/22 Ordered By: Dwain Vick/Other Patient Handouts: Managing Type 2 Diabetes Admission Data Admit Date/Time: 12/13/22 13:58 Attending Provider: Dwain Childress Admit Provider: Gideon Valencia Primary Care Provider: Elías Jade Other Providers: Gideon Valencia Other Interventions: Discharge Summary Assessment (RN) Last Done: 12/14/22 12:27
--- OUTSIDE RECORDS SUMMARY | 2022-12-17 03:20 | External Medical Summary | Summary of Care ---
Author Name Unknown Organization [facility] Address [address] [place] [address] Phone [phone] Care Team Providers Care Quantity Surveyor Name Role Phone Elías Jade MD Primary Care Provider [phone] Encounter Details Date Type Department Care Team Description 11/30/2022 Orders Only [facility] [address] [place] [address] Elías Jade MD [address] [place] [address] Allergies Active Allergy Reactions Severity Noted Date Comments Eggs Or Egg-Derived Products Diarrhea 021 documented as of this encounter (statuses as of 11/30/2022) Medications Medication Sig Dispensed Refills Start Date End Date Status aspirin enteric coated 81 MG TBEC Take 1 Tablet by mouth in the morning. 0 Active omeprazole (PRILOSEC) 20 MG CPDR Take 1 Capsule by mouth in the morning. 0 Active ProAir HFA 108 (90 Base) MCG/ACT Inhalation Aerosol SolutionIndication s:Shortness of breath Inhale 2 Puffs by mouth every 4 hours as needed for Wheezing. 8 g 2 04/01/2022 Active Additional Information Patient not taking.Reported on 10/30/2022 Atorvastatin Calcium 80 MG Oral Tablet (Lipitor)Indicatio ns:Dyslipidemia, goal LDL below 100 TAKE 1 TABLET BEFORE BEDTIME 90 Tablet 3 03/28/2022 Active busPIRone HCl 10 MG Oral Tablet (Buspar)Indication s:ADRIANA (generalized anxiety disorder) TAKE 1 TABLET THREE TIMES DAILY NEEDED FOR ANXIETY 270 Tablet 3 08/08/2022 Active Farxiga 10 MG Oral Tablet Take 1 Tablet by mouth in the morning. 0 09/25/2022 Active hydrOXYzine HCl 25 MG Oral TabletIndications: ADRIANA (generalized anxiety disorder) Take one tablet daily as needed for panic/ anxiety 40 Tablet 2 10/20/2022 Active Cefuroxime Axetil 250 MG Oral Tablet (Ceftin)Indication s:Acute cystitis with hematuria Take 1 Tablet by mouth in the morning and 1 Tablet before bedtime. 14 Tablet 0 10/20/2022 Active Furosemide 20 MG Oral Tablet (Lasix)Indications :Left heart failure (HCC) Take 1 Tablet by mouth in the morning. Take second dose 6 hours later for 3lb weight gain overnight 90 Tablet 3 11/29/2022 Active Famotidine 20 MG Oral Tablet (Pepcid) Take 1 Tablet by mouth in the morning. 90 Tablet 1 11/29/2022 Active Lisinopril 20 MG Oral Tablet (Prinivil) Take 2 Tablets by mouth in the morning. 180 Tablet 1 11/29/2022 Active Metoprolol Succinate ER 50 MG Oral Tablet Extended Release 24 Hour (toPROL XL) Take 1 Tablet by mouth in the morning. 90 Tablet 1 11/29/2022 Active documented as of this encounter (statuses as of 11/30/2022) Active Problems Problem Noted Date Type 2 diabetes mellitus wit h stage 3a chronic kidney disease, without long-term current use of insulin 10/12/2022 GERD (gastroesophageal reflux disease) 0 09/16/2022 Stress 09/16/2022 Type 2 diabetes mellitus with stage 3b c hronic kidney disease 11/21/2021 Overview: Per CKD protocol Chronic kidney disease, stage 3b 022 Overview: Per CKD protocol Left heart failure 04/01/2021 Left bundle branch block (LBBB) 02/29/20 21 Uncontrolled hypertension 02/28/2021 MANDY (obstructive sleep apnea) 10/06/2020 Other chest pain 10/06/2020 Severe obesity with body mas s index (BMI) of 35.0 to 39.9 with serious comorbidity 07/16/2020 Type 2 diabetes mellitus with diabetic c hronic kidney disease 06/14/2019 Secondary hyperparathyroidism, non-renal 06/14/2019 Overview: In the setting of low vitamin D; start vitamin D supplement B12 deficiency 06/14/2019 Type 2 diabetes mellitus with hemoglobin A1c goal of less than 7.0% 05/27/2019 Dyslipidemia, goal LDL below 100 020 ADRIANA (generalized anxiety disorder) 05/27 S/P aortic valve replacement 05/27/2019 Right renal mass 05/27/2019 documented as of this encounter (statuses as of 11/30/2022) Resolved Problems Problem Noted Date Resolved Date Acute chest pain 02/28/2021 09/13/2022 Heart failure with acute decompensation, type un known 02/28/2021 03/07/2021 Type 2 diabetes mellitus wit h stage 3a chronic kidney disease 08/24/2020 11/24/2021 Overview: Per CKD protocol Diabetes mellitus with stage 3 chronic kidney di sease 07/26/2020 08/26/2020 Overview: Per CKD protocol Type 2 diabetes mellitus wit h stage 3 chronic kidney disease, without long-term current use of insulin 07/16/2020 04/08/2020 Overview: Per CKD protocol Stage 3a chronic kidney disease 02/23/2020 11/24/2021 Overview: Per CKD protocol - Per CKD protocol Kidney disease, chronic, stage III (GFR 30-59 ml /min) 11/24/2019 02/26/2020 Overview: Per CKD protocol COPD (chronic obstructive pu lmonary disease) with chronic bronchitis 05/27/2019 05/27/2019 documented as of this encounter (statuses as of 11/30/2022) Immunizations Name Administration Dates Next Due DTaP - Dipth/Tet/Acell Pertussis 03/09/2017 Pneumococcal Conjugate Vacc, 13 Valent (Prevnar) 05/27/2019,03/08/2015 Pneumococcal Polysaccharide PPV23 (Pneumovax) Seasonal Influenza Virus Vac cine, Unspecified Formulation 02/22/2016,03/08/2015 Seasonal Influenza, Trivalent, Adjuvanted, 65+ y rs 07/15/2019 TDAP (age 11 and older)(Adacel) 03/24/2009 documented as of this encounter Social History Tobacco Use Types Packs/Day Years Used Date Smoking Tobacco: Never Smokeless Tobacco: Never Alcohol Use Standard Drinks/Week Comments Never 0 (1 standard drink = 0.6 oz pur e alcohol) Alcohol Habits Answer Date Recorded How often do you have a drink containing alcohol ? Never 05/27/2019 How many drinks containing a lcohol do you have on a typical day when you are drinking? Not asked How often do you have six or more drinks on one occasion? Not asked Physical Activity Answer Date Recorded On average, how many days pe r week do you engage in moderate to strenuous exercise (like walking fast, running, jogging, dancing, swimming, biking, or other activities that cause a light or heavy sweat)? 0 days 05/27/2019 On average, how many minutes do you engage in exercise at this level? Not asked Food Insecurity Answer Date Recorded Within the past 12 months, y ou worried that your food would run out before you got money to buy more. Never true 05/27/2019 Within the past 12 months, t he food you bought just didn't last and you didn't have money to get more. Never true 05/27/2019 Sex Assigned at Date Recorded Female 07/15/2019 8:01 AM E DT Job Start Date Occupation Industry Not on file Not on file Not on file documented as of this encounter Functional Status Functional Status Response Date of Assess ment Are you deaf or do you have serious difficulty h earing? No 09/16/2022 Are you blind or do you have serious difficulty seeing, even when wearing glasses? No 09/16/2022 Do you have serious difficul ty walking or climbing stairs? (5 years old or older) Yes 09/16/2022 Do you have difficulty dress ing or bathing? (5 years old or older) No 09/16/2022 Because of a physical, menta l, or emotional condition, do you have difficulty doing errands alone such as visiting a doctor s office or shopping? (15 years old or older) No 09/17/19 Cognitive Status Response Date of Assessm ent Because of a physical, menta l, or emotional condition, do you have serious difficulty concentrating, remembering, or making decisions? (5 years old or older No 09/16/2022 documented as of this encounter Plan of Treatment Upcoming Encounters Date Type Specialty Care Team Description 12/28/2022 Office Visit Nephrology Harriet Sharif MD [address] [place] [address] 01/09/2023 Office Visit Family Medicine Mahogany Moncada CRNP [address] [facility] [place] [phone] Health Maintenance Due Date Last Done Comments COVID-19 Vaccine (#1) 1945 Zoster Vaccines (1 of 2) 1994 DIABETES-EYE EXAM 10/18/2022 10/18/2021, , 06/30/2019 DIABETES-FOOT EXAM 10/21/2022 10/21/2021, 0 07/16/2020, 07/15/2019 Influenza Vaccine (FLU shot) (#1) 2022 07/15/2019, 02/22/2016, 03/08/2015 GFR 04/22/2023 11/23/2022, 07/0 10/2022, 10/12/2022, Additional history exists HbA1c 04/22/2023 10/20/2022, 05/3 04/2022, 10/21/2021, Additional history exists CKD HGB USE SMARTSET 56613 09/16/202311/23, 09/15/2022, 09/15/2022, Additional history exists Depression Screening, Annual for Pts 12 and Over 10/13/2023 10/12/2022 Albumin/Creatinine Ratio 10/21/2023 07/2 023, 04/01/2021, 07/16/2020, Additional history exists CKD PHOS USE SMARTSET 85153 10/21/2023 07/0 10/2022, 09/13/2022, 03/19/2022, Additional history exists DXA Scan 03/11/2026 03/11/2019 DTaP,Tdap,and Td Vaccines (3 - Td or Tdap) 03/09/2027 03/09/2017, 03/24/2009 Pneumococcal Vaccine: 65+ Years Completed 05/27/2019, 03/08/2015, 06/30/2014 Hepatitis C Screening Completed 10/12/2022 , 10/12/2022, 10/12/2022 GARDASIL-HPV IMMUNIZATION SERIES Aged Out No longer eligible based on patient's age to complete this topic Hepatitis B Aged Out No longer eligi ble based on patient's age to complete this topic MENINGOCOCCAL (MENACTRA/MENVEO) Aged Out No longer eligible based on patient's age to complete this topic documented as of this encounter Medical Devices Not on filedocumented as of this encounter Procedures Procedure Name Priority Date/Time Associated Diagnosis Comments CHEMISTRY-OUTSIDE Routine 11/23/2022 documented in this encounter Results * (ABNORMAL) CHEMISTRY-OUTSIDE (11/23/2022) Not all results display below - see scan for full detail OUTSIDE LAB (SEE SCANNED REPORT) Comment:ED LABS - CBCD CMP, LIPASE, TROP CREATININE-OUTSID E LAB 1.90(A) 0.40 - 1.50 MG/DL OUTSIDE LAB (SEE SCANNED REPORT) EGFR-OUTSIDE LAB 27 ML/MIN OUT SIDE LAB (SEE SCANNED REPORT) POTASSIUM-OUTSIDE LAB 4.4 3.6 - 5.0 MMOL/L OUTSIDE LAB (SEE SCANNED REPORT) GLUCOSE-OUTSIDE LAB 167(A) 65 - 110 MG/DL OUTSIDE LAB (SEE SCANNED REPORT) HOURS FASTING OUTSID E LAB (SEE SCANNED REPORT) TRIGLYCERIDES-OUT SIDE LAB OUTSIDE LAB (SEE SCANNED REPORT) CHOLESTEROL-OUTSI DE LAB OUTSIDE LAB (SEE SCANNED REPORT) HDL-OUTSIDE LAB OUTS TASHA LAB (SEE SCANNED REPORT) CHOL/HDL RATIO-OUTSIDE LAB OUTSIDE LA B (SEE SCANNED REPORT) LDL (CALCULATED)-OUTS TASHA LAB OUTSIDE LAB (SEE SCANNED REPORT) LDL (DIRECT MEASURE)-OUTSIDE LAB OUTSIDE LAB (SEE SCANNED REPORT) HEMOGLOBIN, U3P-VLUYEFI LAB OUTSIDE LAB (SEE SCANNED REPORT) PHOSPHORUS-OUTSID E LAB OUTSIDE LAB (SEE SCANNED REPORT) PTH-OUTSIDE LAB OUTS TASHA LAB (SEE SCANNED REPORT) MICROALBUMIN RATIO-OUTSIDE LAB OUTSIDE LA B (SEE SCANNED REPORT) PROTEIN, UA-OUTSIDE LAB OUTSIDE LAB (SEE SCANNED REPORT) HEMOGLOBIN-OUTSID E LAB 10.8(A) 12.0 - 16.0 G/DL OUTSIDE LAB (SEE SCANNED REPORT) 11/23/2022 Baldomero Salter DO LABORATORY OUTSIDE LAB (SEE SCANNED REPORT) documented in this encounter Advance Directives Latest Code Status on File Code Status Date Activated Date Inactivated Comments Full Code 09/16/2022 3:34 AM 09/16/2022 6:22 PM This o rder reflects the patients wishes and were consensually agreed upon. Question Answer Comments Discussion of Advance Directives occurred with: Patient Code Status History Code Status Date Activated Date Inactivated Comments Full Code 09/13/2022 3:29 AM 09/13/2022 10:12 PM This order reflects the patients wishes and were consensually agreed upon. Question Answer Comments Discussion of Advance Directives occurred with: Patient Full Code 03/19/2022 4:23 AM 03/20/2022 6:40 PM This order reflects the patients wishes and were consensually agreed upon. Question Answer Comments Discussion of Advance Directives occurred with: Patient Does the patient have a Living Will? No Does the patient have Health Care Power of Music Department Chair? No Full Code 02/28/2021 8:35 AM 03/01/2021 8:18 PM Thi s order reflects the patients wishes and were consensually agreed upon. Question Answer Comments Discussion of Advance Directives occurred with: Patient Full Code 10/06/2020 12:41 AM 10/06/2020 9:21 PM This order reflects the patients wishes and were consensually agreed upon. Question Answer Comments Discussion of Advance Directives occurred with: Patient Care Teams Quantity Surveyor Relationship Specialty Start Date End Date Elías Jade MD [place] [phone] PCP - General Family Medicine 06/01/21 documented as of this encounter
--- OUTSIDE RECORDS SUMMARY | 2022-12-17 03:20 | External Medical Summary | Summary of Care ---
Author Name Unknown Organization [facility] Address [address] [place] [address] Phone [phone] Care Team Providers Care Business Intelligence Administrator Name Role Phone Elías Jade MD Primary Care Provider [phone] Encounter Details Date Type Department Care Team Description 11/23/2022 Result Scan Unspecified Department <No scans attached> Allergies Active Allergy Reactions Severity Noted Date [...] before bedtime. 14 Tablet 0 10/20/2022 Active documented as of this encounter (statuses [...] disease, without long-term current use of insulin 07/16/202007/15 Overview: Per CKD protocol Stage 3a chronic [...] 12/28/2022 Office Visit Nephrology Harriet Sharif MD [address] [place] [address] [place] [address] 01/09/2023 Office Visit Family Medicine Mahogany Moncada CRNP [address] [facility] [place] [address] Health Maintenance Due Date Last Done Comments COVID-19 Vaccine (#1) 1945 Zoster Vaccines (1 of 2) 1994 DIABETES-EYE EXAM 10/18/2022 10/18/2021, , 06/30/2019 DIABETES-FOOT EXAM 10/21/2022 10/21/2021, 0 07/16/2020, 07/15/2019 Influenza Vaccine (FLU shot) (#1) 2022 07/15/2019, 02/22/2016, 03/08/2015 GFR 04/22/2023 11/23/2022, 07/0 10/2022, 10/12/2022, Additional history exists HbA1c 04/22/2023 10/20/2022, 05/04/2022, 10/21/2021, Additional history exists CKD HGB USE SMARTSET 86995 09/16/202311/23, 09/15/2022, 09/15/2022, Additional history exists Depression Screening, Annual for Pts 12 and Over 10/13/2023 10/12/2022 Albumin/Creatinine Ratio 10/21/2023 023, 04/01/2021, 07/16/2020, Additional history exists CKD PHOS USE SMARTSET 17360 10/21/2023 070 10/2022, 09/13/2022, 03/19/2022, Additional history exists DXA [...] Procedure Name Priority Date/Time Associated Diagnosis Comments RADIOLOGY SCANNED RESULT 11/23/2022 documented in this encounter Results * RADIOLOGY SCANNED RESULT (11/23/2022) 11/23/2022 No Physician Data Unknown DIAGNOSTIC RAD IOLOGY SERVICES documented in this encounter Advance Directives Latest Code Status on File Code Status Date Activated Date Inactivated Comments Full Code 09/16/2022 3:34 AM 09/16/2022 6:22 PM This or shamir reflects the patients wishes and were consensually [...] the patient have Health Care Power of Safety Specialist? No Full Code 02/28/2021 8:35 AM 03/01/2021 8:18 PM Thi s order reflects the patients wishes and were consensually agreed upon. Question Answer Comments Discussion of Advance Directives occurred with: Patient Full Code 10/06/2020 12:41 AM 10/06/2020 9:21 PM This order reflects the patients wishes and were consensually agreed upon. Question Answer Comments Discussion of Advance Directives occurred with: Patient Care Teams Business Intelligence Administrator Relationship Specialty Start Date End Date Elías Jade MD [place] [phone] PCP - General Family Medicine 06/01/21 documented as of this encounter
--- OUTSIDE RECORDS SUMMARY | 2022-12-17 03:20 | External Medical Summary | Summary of Care ---
Author Name Unknown Organization [facility] Address [address] [place] [address] Phone [phone] Care Team Providers Care Contract Preparer Name Role Phone Elías Jade MD Primary Care Provider [phone] Encounter Details Date Type Department Care Team Description 12/04/2022 Orders Only [facility] [address] [place] [address] Elías Jade MD [address] [place] [address] Allergies Active Allergy Reactions Severity Noted Date Comments Eggs Or Egg-Derived Products Diarrhea 021 documented as of this encounter (statuses as of 12/04/2022) Medications Medication Sig Dispensed Refills Start Date [...] as of this encounter (statuses as of 12/04/2022) Active Problems Problem Noted Date Type 2 [...] as of this encounter (statuses as of 12/04/2022) Resolved Problems Problem Noted Date Resolved Date [...] as of this encounter (statuses as of 12/04/2022) Immunizations Name Administration Dates Next Due DTaP [...] Office Visit Nephrology Harriet Sharif MD [address] [place] [address] 01/09/2023 Office Visit Family Medicine Mahogany Moncada CRNP 21 [facility] [place] [id number] Health Maintenance Due Date Last Done Comments COVID-19 Vaccine (#1) 1945 Zoster Vaccines (1 of 2) 1994 DIABETES-EYE EXAM 10/18/2022 10/18/2021, , 06/30/2019 DIABETES-FOOT EXAM 10/21/2022 10/21/2021, 0 07/16/2020, 07/15/2019 Influenza Vaccine (FLU shot) (#1) 2022 07/15/2019, 02/22/2016, 03/08/2015 HbA1c 04/22/2023 10/20/2022, 08/16, 10/21/2021, Additional history exists GFR 05/26/2023 11/26/2022, 11/14, 10/20/2022, Additional history exists Depression Screening, Annual for Pts 12 and Over 10/13/2023 10/12/2022 Albumin/Creatinine Ratio 10/21/2023 07/2 023, 04/01/2021, 07/16/2020, Additional history exists CKD PHOS USE SMARTSET 39216 10/21/2023 07/0 10/2022, 09/13/2022, 03/19/2022, Additional history exists CKD HGB USE SMARTSET 90799 11/24/202311/26, 11/23/2022, 09/15/2022, Additional history exists DXA Scan 03/11/2026 03/11/2019 [...] Priority Date/Time Associated Diagnosis Comments CHEMISTRY-OUTSIDE Routine 11/26/2022 documented in this encounter Results * (ABNORMAL) CHEMISTRY-OUTSIDE (11/26/2022) Not all results display below - see scan for full detail OUTSIDE LAB (SEE SCANNED REPORT) Comment:SCAN INCLUDES: [facility] ED LABS - PT INR PTT, BMP, PRO BNP, TROPONIN I HS, CBCD CREATININE-OUTSID E LAB 2.10(A) 0.40 - 1.50 MG/DL OUTSIDE LAB (SEE SCANNED REPORT) EGFR-OUTSIDE LAB 24(A) >=60 ML/MIN/1.7 3M2 OUTSIDE LAB (SEE SCANNED REPORT) POTASSIUM-OUTSIDE LAB 4.6 3.6 - 5.0 MMOL/L OUTSIDE LAB (SEE SCANNED REPORT) GLUCOSE-OUTSIDE LAB 158(A) 65 - 110 MG/DL OUTSIDE LAB (SEE [...] LAB OUTSIDE LAB (SEE SCANNED REPORT) HEMOGLOBIN, A5X-HBFIFMF LAB OUTSIDE LAB (SEE SCANNED REPORT) PHOSPHORUS-OUTSID E LAB OUTSIDE LAB (SEE SCANNED REPORT) PTH-OUTSIDE LAB OUTS TASHA LAB (SEE SCANNED REPORT) MICROALBUMIN RATIO-OUTSIDE LAB OUTSIDE LA B (SEE SCANNED REPORT) PROTEIN, UA-OUTSIDE LAB OUTSIDE LAB (SEE SCANNED REPORT) HEMOGLOBIN-OUTSID E LAB 10.8(A) 12 - 16 GM/DL OUTSIDE LAB (SEE SCANNED REPORT) 11/26/2022 Alida Danielle DO LABORATORY OUTSIDE LAB (SEE SCANNED REPORT) [...] the patient have Health Care Power of Rotoformer Backtender? No Full Code 02/28/2021 8:35 AM 03/01/2021 8:18 PM Thi s order reflects the patients wishes and were consensually agreed upon. Question Answer Comments Discussion of Advance Directives occurred with: Patient Full Code 10/06/2020 12:41 AM 10/06/2020 9:21 PM This order reflects the patients wishes and were consensually agreed upon. Question Answer Comments Discussion of Advance Directives occurred with: Patient Care Teams Contract Preparer Relationship Specialty Start Date End Date Elías Jade MD [place] [id number] PCP - General Family Medicine 06/01/21 documented as of this encounter
--- OUTSIDE RECORDS SUMMARY | 2022-12-17 03:20 | External Medical Summary | Summary of Care ---
Author Name Unknown Organization [facility] Address [address] [place] [address] Phone [phone] Care Team Providers Care Director Financial Analysis Name Role Phone Elías Gilbert MD Primary Care Provider [phone] [phone] Reason for Visit * Reason Comments New Med Request Encounter Details Date Type Department Care Team Description 11/28/2022 Refill [facility] [address] [place] [address] Elías Gilbert MD [address] [place] [address] Allergies Active Allergy Reactions Severity Noted Date Comments Eggs Or Egg-Derived Products Diarrhea 021 documented as of this encounter (statuses as of 11/29/2022) Medications Medication Sig Dispensed Refills Start Date End Date Status aspirin enteric coated 81 MG TBEC Take 1 Tablet by mouth in the morning. 0 Active omeprazole (PRILOSEC) 20 MG CPDR Take 1 Capsule by mouth in the morning. 0 Active ProAir HFA 108 (90 Base) MCG/ACT Inhalation Aerosol SolutionIndicati ons:Shortness of breath Inhale 2 Puffs by mouth every 4 hours as needed for Wheezing. 8 g 2 04/01/2022 Active Additional Information Patient not taking.Reported on 10/30/2022 Atorvastatin Calcium 80 MG Oral Tablet (Lipitor)Indicat ions:Dyslipidemi a, goal LDL below 100 TAKE 1 TABLET BEFORE BEDTIME 90 Tablet 3 03/28/2022 Active busPIRone HCl 10 MG Oral Tablet (Buspar)Indicati ons:ADRIANA (generalized anxiety disorder) TAKE 1 TABLET THREE TIMES DAILY NEEDED FOR ANXIETY 270 Tablet 3 08/08/2022 Active Farxiga 10 MG Oral Tablet Take 1 Tablet by mouth in the morning. 0 09/25/2022 Active hydrOXYzine HCl 25 MG Oral TabletIndication s:ADRIANA (generalized anxiety disorder) Take one tablet daily as needed for panic/ anxiety 40 Tablet 2 10/20/2022 Active Cefuroxime Axetil 250 MG Oral Tablet (Ceftin)Indicati ons:Acute cystitis with hematuria Take 1 Tablet by mouth in the morning and 1 Tablet before bedtime. 14 Tablet 0 10/20/2022 Active Famotidine 20 MG Oral Tablet (Pepcid) [...] 20 MG Oral Tablet (Prinivil) Take 2 tablets by mouth every morning 60 Tablet 0 09/13/2022 3 Discontinued Furosemide 20 MG Oral Tablet (Lasix)Indicatio ns:Left heart failure (HCC) Take 1 Tablet by mouth in the morning. Take second dose 6 hours later for 3lb weight gain overnight.. 45 Tablet 11 10/12/2022 3 Discontinued Famotidine 20 MG Oral Tablet (Pepcid) Take 1 Tablet by mouth every morning. 90 Tablet 1 11/21/2022 3 Discontinued documented as of this encounter (statuses as of 11/29/2022) Active Problems Problem Noted Date Type 2 [...] as of this encounter (statuses as of 11/29/2022) Resolved Problems Problem Noted Date Resolved Date [...] as of this encounter (statuses as of 11/29/2022) Immunizations Name Administration Dates Next Due DTaP [...] (15 years old or older) No 09/17/19 23 Cognitive Status Response Date of Assessm ent Because of a physical, menta l, or emotional condition, do you have serious difficulty concentrating, remembering, or making decisions? (5 years old or older No 09/16/2022 documented as of this encounter Miscellaneous Notes * Telephone Encounter - Elías Gilbert MD - 11/29/2022 1:45 PM EDTSigned Prescriptions: Disp Refills Famotidine 20 MG Oral Tablet (Pepcid) 90 Tab*1 Sig: Take 1 Tablet by mouth in the morning. Authorizing Provider: ELÍAS GILBERT Ordering User: AISHA DELONG Lisinopril 20 MG Oral Tablet (Prinivil) 180 Ta*1 Sig: Take 2 Tablets by mouth in the morning. Authorizing Provider: ELÍAS GILBERT Metoprolol Succinate ER 50 MG Oral Tablet *90 Tab*1 Sig: Take 1 Tablet by mouth in the morning. Authorizing Provider: ELÍAS GILBERT Refused Prescriptions: Disp Refills Metoprolol Tartrate 25 MG Oral Tablet (Lop*90 Tab*0 Refused By: AISHA DELONG Reason for Refusal: Other (comment below) * Telephone Encounter - Aisha Delong [facility] - 11/29/2022 10:50 AM EDT Pending Prescriptions: Disp Refills Lisinopril 20 MG Oral Tablet (Prinivil) 180 Ta*1 Sig: Take 2 Tablets by mouth in the morning. Metoprolol Succinate ER 50 MG Oral Tablet *90 Tab*1 Sig: Take 1 Tablet by mouth in the morning. Signed Prescriptions: Disp Refills Famotidine 20 MG Oral Tablet (Pepcid) 90 Tab*1 Sig: Take 1 Tablet by mout h in the morning. Authorizing Provider: ELÍAS GILBERT Ordering User: AISHA DELONG Refused Prescriptions: Disp Refills Metoprolol Tartrate 25 MG Oral Tablet (Lop*90 Tab*0 Refused By: AISHA DELONG Reason for Refusal: Other (comment below) * Telephone Encounter - Aisha Delong RPh - 11/29/2022 10:48 AM EDT Lisinopril and Toprol XL last prescribed on hospital discharge. 09/13/22: "RECOMMENDED TO DO FOR NEXT PROVIDER(S): Increased lisinopril to 40 mg daily Increased lasix to 40 mg daily Switched metoprolol tartrate to metoprolol succinate 50 mg daily" documented in this encounter Plan of Treatment Upcoming Encounters Date Type Specialty Care Team Description 12/28/2022 Office Visit Nephrology Harriet Sharif MD [address] [place] [address] [place] [address] 01/09/2023 Office Visit Family Medicine Mahogany Moncada CRNP 21 [facility] [place] [address] Health Maintenance Due Date Last Done Comments COVID-19 Vaccine (#1) 1945 Zoster Vaccines (1 of 2) 1994 DIABETES-EYE EXAM 10/18/2022 10/18/2021, , 06/30/2019 DIABETES-FOOT EXAM 10/21/2022 10/21/2021, 0 07/16/2020, 07/15/2019 Influenza Vaccine (FLU shot) (#1) 2022 07/15/2019, 02/22/2016, 03/08/2015 GFR 04/22/2023 10/20/2022, 09/15, 09/15/2022, Additional history exists HbA1c 04/22/2023 10/20/2022, 08/16, 10/21/2021, Additional history exists CKD HGB USE SMARTSET 21517 09/16/202309/15, 09/15/2022, 09/13/2022, Additional history exists Depression Screening, Annual for Pts 12 and Over 10/13/2023 10/12/2022 Albumin/Creatinine Ratio 10/21/2023 023, 04/01/2021, 07/16/2020, Additional history exists CKD PHOS USE SMARTSET 10650 10/21/2023 07/0 10/2022, 09/13/2022, 03/19/2022, Additional history [...] Not on filedocumented as of this encounter Advance Directives Latest Code Status [...] the patient have Health Care Power of Plate Driller? No Full Code 02/28/2021 8:35 AM 03/01/2021 8:18 PM Thi s order reflects the patients wishes and were consensually agreed upon. Question Answer Comments Discussion of Advance Directives occurred with: Patient Full Code 10/06/2020 12:41 AM 10/06/2020 9:21 PM This order reflects the patients wishes and were consensually agreed upon. Question Answer Comments Discussion of Advance Directives occurred with: Patient Care Teams Director Financial Analysis Relationship Specialty Start Date End Date Elías Gilbert MD [place] [address] PCP - General Family Medicine 06/01/21 documented as of this encounter
--- OUTSIDE RECORDS SUMMARY | 2022-12-17 03:21 | External Medical Summary ---
Author Name Unknown Address Unknown Organization K01:LABORATORY [facility] - [address] [place] [address] Laboratory Report Ordering Provider Test Date Status OFELIA GONSALEZ 10/20/2022 08:11:34 Final Observation Date Value Abnormality Reference (Units ) Status HbA1C 10/20/2022 08:11:34 7.0 Above high normal 4. 0-5.6 (%) Final Performing Location LABORATORY C - [address] [place] [address]
--- OUTSIDE RECORDS SUMMARY | 2022-12-17 03:21 | External Medical Summary | Summary of Care ---
Author Name Unknown Organization [facility] Address [address] [place] [address] Phone [phone] Care Team Providers Care Calker Name Role Phone Elías Jade MD Primary Care Provider [phone] Reason for Visit * Reason Onset Date Comments Test Results 10/13/202210/13 Encounter Details Date Type Department Care Team Description 10/13/2022 [facility] [place] [address] Elías Jade MD [address] [place] [id number] Test Results (10/13) Allergies Active Allergy Reactions Severity Noted Date Comments Eggs Or Egg-Derived Products Diarrhea 021 documented as of this encounter (statuses as of 10/23/2022) Medications Medication Sig Dispensed Refills Start Date End Date Status aspirin enteric coated 81 MG TBEC Take 1 Tablet by mouth in the morning. 0 Active omeprazole (PRILOSEC) 20 MG CPDR Take 1 Capsule by mouth in the morning. 0 Active ProAir HFA 108 (90 Base) MCG/ACT Inhalation Aerosol SolutionIndicatio ns:Shortness of breath Inhale 2 Puffs by mouth every 4 hours as needed for Wheezing. 8 g 2 04/01/2022 Active Atorvastatin Calcium 80 MG Oral Tablet (Lipitor)Indicati ons:Dyslipidemia, goal LDL below 100 TAKE 1 TABLET BEFORE BEDTIME 90 Tablet 3 03/28/2022 Active busPIRone HCl 10 MG Oral Tablet (Buspar)Indicatio ns:ADRIANA (generalized anxiety disorder) TAKE 1 TABLET THREE TIMES DAILY NEEDED FOR ANXIETY 270 Tablet 3 08/08/2022 Active Lisinopril 20 MG Oral Tablet (Prinivil) Take 2 tablets by mouth every morning 60 Tablet 0 09/13/2022 Active Famotidine 20 MG Oral Tablet (Pepcid) Take 1 Tablet by mouth every morning. 60 Tablet 0 09/16/2022 Active Farxiga 10 MG Oral Tablet Take 1 Tablet by mouth in the morning. 0 09/25/2022 Active Furosemide 20 MG Oral Tablet (Lasix)Indication s:Left heart failure (HCC) Take 1 Tablet by mouth in the morning. Take second dose 6 hours later for 3lb weight gain overnight.. 45 Tablet 11 10/12/2022 Active Metoprolol Succinate ER 50 MG Oral Tablet Extended Release 24 Hour (toPROL XL) Take 1 Tablet by mouth in the morning. 30 Tablet 0 09/13/2022 10/13/2022 Escitalopram Oxalate 10 MG Oral Tablet (Lexapro)Indicati ons:ADRIANA (generalized anxiety disorder) Take 1 Tablet by mouth in the morning. 90 Tablet 3 10/12/2022 10/20/2022 Discontinued( Patient preference/di scontinuation ) documented as of this encounter (statuses as of 10/23/2022) Active Problems Problem Noted Date Type 2 [...] as of this encounter (statuses as of 10/23/2022) Resolved Problems Problem Noted Date Resolved Date [...] as of this encounter (statuses as of 10/23/2022) Immunizations Name Administration Dates Next Due DTaP [...] encounter Miscellaneous Notes * Telephone Encounter - Mercedez Luque LPN - 10/23/2022 2:17 PM EDT Pt sched 10-30-22. (Per NF, pt is aware) * Telephone Encounter - MANDY Zavala - 10/16/2022 11:15 AM EDT Spoke to Pt and scheduled US and Labs. No openings for Nephrology the week of October 30 which is when Pt wants to schedule appt with them. Nephrology can you please assist? Thanks! * Telephone Encounter - Ashlie Macias LPN - 10/16/2022 11:08 AM EDT Provider to address: Dr Jade Reason for Call: Test Results (10/13) Contact: Telephone Call Contact Type: Other: advice Outcome: pt informed, verbalizes understanding Pt agreeable to labs in 1 wk, us and nephrology appt Total Time including non face to face (minutes): 5 * Telephone Encounter - Ashlie Macias LPN - 10/13/2022 10:10 AM EDT Provider to address: Dr Jade Reason for Call: No chief complaint on file. Contact: Telephone Call Contact Type: Test Results Outcome: voice mailbox not set up, unable to let msg Total Time including non face to face (minutes): 5 * Telephone Encounter - Elías Jade MD - 10/13/2022 8:12 AM EDT Please call pt to advise that her kidney function has significantly decreased. Needs to stop metformin entirely and stop her lasix (water pill) and only take as needed 20mg for noted swelling. This could be due to over-diuresis. Will get renal ultrasound , recheck labs and urine in one week off diuretics, and refer to nephrology. Elías Jade MD, PAULA Family Physician João [place] documented in this encounter Plan of Treatment Upcoming Encounters Date Type Specialty Care Team Description 10/30/2022 Office Visit Nephrology Harriet Sharif MD [address] [place] [address] [place] [address] 01/09/2023 Office Visit Family Medicine Mahogany Moncada CRNP [address] [place] [id number] Health Maintenance Due Date Last Done Comments COVID-19 Vaccine (#1) 1945 Zoster Vaccines (1 of 2) 1994 DIABETES-EYE EXAM 10/18/2022 10/18/2021, , 06/30/2019 DIABETES-FOOT EXAM 10/21/2022 10/21/2021, 0 07/16/2020, 07/15/2019 Influenza Vaccine (FLU shot) (#1) 2022 07/15/2019, 02/22/2016, 03/08/2015 GFR 04/22/2023 10/20/2022, 09/15, 09/15/2022, Additional history exists HbA1c 04/22/2023 10/20/2022, 08/16, 10/21/2021, Additional history exists CKD HGB USE SMARTSET 42047 09/16/202309/15, 09/15/2022, 09/13/2022, Additional history exists Depression Screening, Annual for Pts 12 and Over 10/13/2023 10/12/2022 Albumin/Creatinine Ratio 10/21/20232 023, 04/01/2021, 07/16/2020, Additional history exists CKD PHOS USE SMARTSET 71513 10/21/2023 07/0 10/2022, 09/13/2022, 03/19/2022, Additional history [...] Not on filedocumented as of this encounter Results * (ABNORMAL) CALCIUM, IONIZED (10/20/2022 8:11 AM EDT) [facility] Calcium, Ionized 1.36(H) 1.13 - 1.32 mmol/L 10/20/2022 5:08 PM EDT LABORATORY GM Comment:This test was [employer] and its performance characteristics dtermined by [employer]. It has not been cleared or approved by the US Food and Drug Administration Blood Venous blood specimen / Unknown Venipuncture / Unknown 10/20/2022 8:11 AM EDT 10/20/2022 8:11 AM EDT Elías Jade MD LAB BLOOD ORDERAB LES LABORATORY [facility] [address] [place] [address] documented in this encounter Visit Diagnoses Diagnosis Hyperparathyroidism, primary (HCC)- Primary Primary hyperparathyroidism documented in this encounter Advance Directives Latest [...] the patient have Health Care Power of Roofing Subcontractor? No Full Code 02/28/2021 8:35 AM 03/01/2021 8:18 PM Thi s order reflects the patients wishes and were consensually agreed upon. Question Answer Comments Discussion of Advance Directives occurred with: Patient Full Code 10/06/2020 12:41 AM 10/06/2020 9:21 PM This order reflects the patients wishes and were consensually agreed upon. Question Answer Comments Discussion of Advance Directives occurred with: Patient Care Teams Calker Relationship Specialty Start Date End Date Elías Jade MD [address] [place] [address] PCP - General Family Medicine 06/01/21 documented as of this encounter
--- OUTSIDE RECORDS SUMMARY | 2022-12-17 03:21 | External Medical Summary | Summary of Care ---
Author Name Unknown Organization [facility] Address [address] [place] [address] Phone [phone] Care Team Providers Care Supervisor Stage Carpentry Name Role Phone Elías aJde MD Primary Care Provider [phone] [phone] Reason for Visit * Reason Onset Date Comments Order Request 11/01/2022 Encounter Details Date Type Department Care Team Description 11/01/2022 Telephone Nephrology, [address] [address] Harriet Sharif MD [address] [place] [address] Order Request Allergies Active Allergy Reactions Severity Noted Date Comments Eggs Or Egg-Derived Products Diarrhea 021 documented as of this encounter (statuses as of 11/02/2022) Medications Medication Sig Dispensed Refills Start Date [...] 09/25/2022 Active Furosemide 20 MG Oral Tablet (Lasix)Indications :Left heart failure (HCC) Take 1 Tablet by mouth in the morning. Take second dose 6 hours later for 3lb weight gain overnight.. 45 Tablet 11 10/12/2022 Active hydrOXYzine HCl 25 MG Oral TabletIndications: ADRIANA (generalized anxiety disorder) Take one tablet daily as needed for panic/ anxiety 40 Tablet 2 10/20/2022 Active Cefuroxime Axetil 250 MG Oral Tablet (Ceftin)Indication s:Acute cystitis with hematuria Take 1 Tablet by mouth in the morning and 1 Tablet before bedtime. 14 Tablet 0 10/20/2022 Active documented as of this encounter (statuses as of 11/02/2022) Active Problems Problem Noted Date Type 2 [...] as of this encounter (statuses as of 11/02/2022) Resolved Problems Problem Noted Date Resolved Date [...] as of this encounter (statuses as of 11/02/2022) Immunizations Name Administration Dates Next Due DTaP [...] encounter Miscellaneous Notes * Telephone Encounter - Candice Harlon, IMPROVEMENT INTERN - 11/02/2022 3:21 PM EDT Pt is aware. * Telephone Encounter - Mercedez Luque LPN - 11/02/2022 9:33 AM EDT Lab orders printed, faxed and received by [facility] [employer] [facility]re. No answer by phone to inform pt. Will call later. * Telephone Encounter - MANDY Rosales - 11/01/2022 12:38 PM EDT Please forward lab orders for patient to have Comprehensive Metabolic Panel and 25-Hydroxy Vitamin D to the following lab: [facility] at Fax number ([phone]). That lab is in patient's network for insurance coverage and she wants to go there. Please call her to let her know the orders are faxed so she can have them drawn. Dr. Sharif had on the orders for them to be drawn around 10/30/22. documented in this encounter Plan of Treatment Upcoming Encounters Date Type Specialty Care Team Description 12/28/2022 Office Visit Nephrology Harriet Sharif MD [address] [place] [address] [place] [address] 01/09/2023 Office Visit Family Medicine Mahogany Moncada CRNP 21 [facility] [place] [id number] Health Maintenance Due Date Last Done Comments COVID-19 Vaccine (#1) 1945 Zoster Vaccines (1 of 2) 1994 DIABETES-EYE EXAM 10/18/2022 10/18/2021, , 06/30/2019 DIABETES-FOOT EXAM 10/21/2022 10/21/2021, 0 07/16/2020, 07/15/2019 Influenza Vaccine (FLU shot) (#1) 2022 07/15/2019, 02/22/2016, 03/08/2015 GFR 04/22/2023 10/20/2022, 09/15, 09/15/2022, Additional history exists HbA1c 04/22/2023 10/20/2022, 08/16, 10/21/2021, Additional history exists CKD HGB USE SMARTSET 04587 09/16/202309/15, 09/15/2022, 09/13/2022, Additional history exists Depression Screening, Annual for Pts 12 and Over 10/13/2023 10/12/2022 Albumin/Creatinine Ratio 10/21/2023 023, 04/01/2021, 07/16/2020, Additional history exists CKD PHOS USE SMARTSET 17062 10/21/2023 07/0 10/2022, 09/13/2022, 03/19/2022, Additional history [...] the patient have Health Care Power of Sander And Buffer? No Full Code 02/28/2021 8:35 AM 03/01/2021 8:18 PM Thi s order reflects the patients wishes and were consensually agreed upon. Question Answer Comments Discussion of Advance Directives occurred with: Patient Full Code 10/06/2020 12:41 AM 10/06/2020 9:21 PM This order reflects the patients wishes and were consensually agreed upon. Question Answer Comments Discussion of Advance Directives occurred with: Patient Care Teams Supervisor Stage Carpentry Relationship Specialty Start Date End Date Elías Jade MD [place] [id number] PCP - General Family Medicine 06/01/21 documented as of this encounter
--- OUTSIDE RECORDS SUMMARY | 2022-12-17 03:21 | External Medical Summary | Summary of Care ---
Author Name Unknown Organization [facility] Address [address] [place] [address] Phone [phone] Care Team Providers Care Md Physician Dermatologist Name Role Phone Elías Jade MD Primary Care Provider [phone] Reason for Visit * Reason Onset Date Comments Advice 10/13/2022 Encounter Details Date Type Department Care Team Description 10/13/2022 Telephone [facility] [address] [place] [address] Elías Jade MD [address] [place] [address] Advice Allergies Active Allergy Reactions Severity Noted Date Comments Eggs Or Egg-Derived Products Diarrhea 021 documented as of this encounter (statuses as of 10/20/2022) Medications Medication Sig Dispensed Refills Start Date [...] 10/12/2022 Active hydrOXYzine HCl 25 MG Oral TabletIndications :ADRIANA (generalized anxiety disorder) Take one tablet daily as needed for panic/ anxiety 40 Tablet 2 10/20/2022 Active Escitalopram Oxalate 10 MG Oral Tablet (Lexapro)Indicati ons:ADRIANA (generalized anxiety disorder) Take 1 Tablet by mouth in the morning. 90 Tablet 3 10/12/2022 10/20/2022 Discontinued (Patient preference/d iscontinuati on) documented as of this encounter (statuses as of 10/20/2022) Active Problems Problem Noted Date Type 2 [...] as of this encounter (statuses as of 10/20/2022) Resolved Problems Problem Noted Date Resolved Date [...] as of this encounter (statuses as of 10/20/2022) Immunizations Name Administration Dates Next Due DTaP [...] encounter Miscellaneous Notes * Telephone Encounter - MANDY Palencia - 10/20/2022 12:03 PM EDT No openings at this time, please assist in scheduling. * Telephone Encounter - Barbara Westbrook LPN - 10/20/2022 11:58 AM EDT Provider to address: Dr Jade Reason for Call: Advice Contact: Telephone Call Contact Type: Other: Nephrology appt needs scheduled. Outcome: Total Time including non face to face (minutes): 5 * Telephone Encounter - Elías Jade MD - 10/20/2022 11:34 AM EDT Renal ultrasound shows thinning of renal cortex, consistent with chronic kidney disease. There is no nephology appointment scheduled next year as she reports. Can she be worked in? Elías Jade MD, PAULA Family Physician João [place] * Telephone Encounter - Barbara Westbrook LPN - 10/20/2022 11:28 AM EDT Provider to address: Dr Jade Reason for Call: Advice Contact: Telephone Call Contact Type: Medication Outcome: Spoke to pt and notified her of medication sent to pharmacy. Also, Pt states she did talk to the nephrology office and the appt they offered she was not able togo. Her son would not be available to transport her and she cannot drive x 3 months. She states thenephrology office told her they are booked until next year but they will call her if they have a cancellation. Total Time including non face to face (minutes): 10 Dr Jade * Telephone Encounter - Eílas Jade MD - 10/20/2022 8:42 AM EDT Hydroxyzine sent. Take once daily as needed Please transfer to Nephrology/ [facility] to schedule nephrology appointment, as they have not been able to contact her and her renal function has significantly decreased. Thanks! Elías Jade MD, PAULA Family Physician João [place] * Telephone Encounter - MANDY Snyder - 10/13/2022 3:08 PM EDT Pt called radiology for accident but is concerned about starting med that was prescribed yesterday due to the side effects that are listed She is asking if there would be something she could take every once and awhile when she gets "worked up" documented in this encounter Plan of Treatment Upcoming Encounters Date Type Specialty Care Team Description 01/09/2023 Office Visit Family Medicine Mahogany Moncada CRNP [address] [place] [address] Health Maintenance Due Date Last Done Comments COVID-19 Vaccine (#1) 1945 Zoster Vaccines (1 of 2) 1994 Albumin/Creatinine Ratio 04/01/2022 021, 07/16/2020, 06/06/2019 DIABETES-EYE EXAM 10/18/2022 10/18/2021, , 06/30/2019 DIABETES-FOOT EXAM 10/21/2022 10/21/2021, 0 07/16/2020, 07/15/2019 Influenza Vaccine (FLU shot) (#1) 2022 07/15/2019, 02/22/2016, 03/08/2015 HbA1c 03/15/2023 09/13/2022, 07/0 11/2021, 02/28/2021, Additional history exists GFR 04/13/2023 10/12/2022, 06/0 05/2022, 09/13/2022, Additional history exists CKD PHOS USE SMARTSET 37671 09/14/202308/16 04/2022, 03/19/2022, 10/21/2021 CKD HGB USE SMARTSET 35342 09/16/202309/15, 09/15/2022, 09/13/2022, Additional history exists Depression Screening, Annual for Pts 12 and Over 10/13/2023 10/12/2022 DXA Scan 03/11/2026 03/11/2019 DTaP,Tdap,and Td Vaccines [...] Not on filedocumented as of this encounter Visit Diagnoses Diagnosis ADRIANA (generalized anxiety disorder)- Primary Generalized anxiety disorder documented in this encounter Advance Directives Latest [...] the patient have Health Care Power of Ophthalmic Medical Assistant? No Full Code 02/28/2021 8:35 AM 03/01/2021 8:18 PM Thi s order reflects the patients wishes and were consensually agreed upon. Question Answer Comments Discussion of Advance Directives occurred with: Patient Full Code 10/06/2020 12:41 AM 10/06/2020 9:21 PM This order reflects the patients wishes and were consensually agreed upon. Question Answer Comments Discussion of Advance Directives occurred with: Patient Care Teams Md Physician Dermatologist Relationship Specialty Start Date End Date Elías Jade MD [address] [place] [phone] PCP - General Family Medicine 06/01/21 documented as of this encounter
--- OUTSIDE RECORDS SUMMARY | 2022-12-17 03:21 | External Medical Summary | Summary of Care ---
Author Name Unknown Organization [facility] Address [address] [place] [address] Phone [phone] Care Team Providers Care Nut Picker Name Role Phone Elías Jade MD Primary Care Provider [phone] Reason for Visit * Reason Onset Date Comments Appointment 10/16/2022 Encounter Details Date Type Department Care Team Description 10/16/2022 Telephone Nephrology, [address] [address] Harriet Sharif MD [address] [place] [address] Appointment Allergies Active Allergy Reactions Severity Noted Date [...] gain overnight.. 45 Tablet 11 10/12/2022 Active Escitalopram Oxalate 10 MG Oral Tablet [...] Miscellaneous Notes * Telephone Encounter - Elías Jade MD - 10/20/2022 1:35 PM EDT Please try back later today or next week. My nurse was able to relay information today to her. Could also try calling son. Thanks! Elías Jade MD, PAULA Family Physician João [place] * Telephone Encounter - MANDY Browning - 10/20/2022 1:22 PM EDT 10/20 called patient and can't let a voicemail. Voicemail box hasn't been set up yet. I wont be able to send a [employer] message due to it not being active. Please let us know what to do with the referral. * Telephone Encounter - MANDY Browning - 10/16/2022 1:22 PM EDT 10/16 called patient. Patient doesn't have voicemail box set up yet so couldn't leave a message. Trying to schedule a new nephrology appointment in [place]. Referral is under active requests. documented in this encounter Plan of Treatment Upcoming Encounters Date Type Specialty Care Team Description 01/09/2023 Office Visit Family Medicine Mahogany Moncada CRNP [address] [place] [address] Health Maintenance Due Date Last Done Comments [...] Additional history exists CKD PHOS USE SMARTSET 32651 09/14/2023 053 04/2022, 03/19/2022, 10/21/2021 CKD HGB USE SMARTSET 55023 09/16/202309/15, 09/15/2022, 09/13/2022, Additional history exists Depression [...] the patient have Health Care Power of Residence Manager? No Full Code 02/28/2021 8:35 AM 03/01/2021 8:18 PM Thi s order reflects the patients wishes and were consensually agreed upon. Question Answer Comments Discussion of Advance Directives occurred with: Patient Full Code 10/06/2020 12:41 AM 10/06/2020 9:21 PM This order reflects the patients wishes and were consensually agreed upon. Question Answer Comments Discussion of Advance Directives occurred with: Patient Care Teams Nut Picker Relationship Specialty Start Date End Date Elías Jade MD [address] [place] [address] PCP - General Family Medicine 06/01/21 documented as of this encounter
--- OUTSIDE RECORDS SUMMARY | 2022-12-17 03:21 | External Medical Summary | Summary of Care ---
Author Name Unknown Organization [facility] Address [address] [place] [address] Phone [phone] Care Team Providers Care Strategic Client Executive Name Role Phone Elías Gilbert MD Primary Care Provider [phone] Reason for Visit * Reason Onset Date Comments Medication Refill 11/21/2022 Encounter Details Date Type Department Care Team Description 11/21/2022 Refill [facility] [address] [place] [address] Elías Gilbert MD [address] [place], [place] [id number] Allergies Active Allergy Reactions Severity Noted Date Comments Eggs Or Egg-Derived Products Diarrhea 021 documented as of this encounter (statuses as of 11/21/2022) Medications Medication Sig Dispensed Refills Start Date [...] every morning 60 Tablet 0 09/13/2022 Active Farxiga 10 MG Oral Tablet Take 1 Tablet by mouth in the morning. 0 09/25/2022 Active Furosemide 20 MG Oral Tablet (Lasix)Indicatio ns:Left heart failure (HCC) Take 1 Tablet by mouth in the morning. Take second dose 6 hours later for 3lb weight gain overnight.. 45 Tablet 11 10/12/2022 Active hydrOXYzine HCl 25 MG Oral TabletIndication [...] mouth every morning. 90 Tablet 1 11/21/2022 Active Famotidine 20 MG Oral Tablet (Pepcid) Take 1 Tablet by mouth every morning. 60 Tablet 0 09/16/2022 3 Discontinue d(Refill) documented as of this encounter (statuses as of 11/21/2022) Active Problems Problem Noted Date Type 2 [...] as of this encounter (statuses as of 11/21/2022) Resolved Problems Problem Noted Date Resolved Date [...] as of this encounter (statuses as of 11/21/2022) Immunizations Name Administration Dates Next Due DTaP [...] Telephone Encounter - Elías Gilbert MD - 11/21/2022 8:12 AM EDTSigned Prescriptions: Disp Refills Famotidine 20 MG Oral Tablet (Pepcid) 90 Tab*1 Sig: Take 1 Tablet by mouth every morning. Authorizing Provider: ELÍAS GILBERT * Telephone Encounter - Kenyon Smith LPN - 11/21/2022 7:27 AM EDT Provider to address: [place] Reason for Call: Medication Refill Contact: Letter Contact Type: Medication Outcome: Refill request sent to provider Total Time including non face to face (minutes): 5 Did you pend patient's preferred pharmacy and medication before forwarding?yes Pharmacy: [facility] [address] [place] [address] [place] Pending Prescriptions: Disp Refills Famotidine 20 MG Oral Tablet (Pepcid) 90 Tab*1 Sig: Take 1 Tablet by mouth every morning. Last Visit: 10/12/2022 (in office), Visit date not found (telemedicine) Next Visit: 01/09/2023 If no future appointments scheduled, and last appointment is greater than a year ago, please schedule patient for a follow-up appointment Last date the medication was ordered: 09/16/2022- by hospitalist Is this request for a controlled substance?No Urine Drug Screen:No results found for this or any previous visit. Patient Phone Numbers Labs: Lab Results Component Value Date/Time CREAT 2.1 (H) 10/20/2022 08:11 AM CREAT 1.2 (H) 10/31/2019 10:03 AM POTASSIUM 4.1 10/20/2022 08:11 AM POTASSIUM 4.6 10/31/2019 10:03 AM TSH 2.02 05/19/2019 10:59 PM LDLCALC 71 03/19/2022 06:12 AM LDLCALC 66 06/03/2019 07:54 AM LDLDIRECT NOT APPLICABLE 06/03/2019 07:54 AM ALT 12 09/15/2022 10:50 PM ALT 13 10/31/2019 10:03 AM HGBA1C 7.0 (H) 10/20/2022 08:11 AM HGBA1C 7.0 (H) 01/20/2021 09:57 AM HGBA1C 6.6 (H) 10/31/2019 10:03 AM documented in this encounter Plan of Treatment Upcoming Encounters Date Type Specialty Care Team Description 12/28/2022 Office Visit Nephrology Harriet Sharif MD [address] [facility] [place] [address] 01/09/2023 Office Visit Family Medicine Mahogany Moncada CRNP [address] [facility] [place] [address] Health Maintenance Due Date Last Done Comments COVID-19 Vaccine (#1) 1945 Zoster Vaccines (1 of 2) 1994 DIABETES-EYE EXAM 10/18/2022 10/18/2021, , 06/30/2019 DIABETES-FOOT EXAM 10/21/2022 10/21/2021, 0 07/16/2020, 07/15/2019 Influenza Vaccine (FLU shot) (#1) 2022 07/15/2019, 02/22/2016, 03/08/2015 GFR 04/22/2023 10/20/2022, 09/15, 09/15/2022, Additional history exists HbA1c 04/22/2023 10/20/2022, 05/04/2022, 10/21/2021, Additional history exists CKD HGB USE SMARTSET 34695 09/16/202309/15, 09/15/2022, 09/13/2022, Additional history exists Depression Screening, Annual for Pts 12 and Over 10/13/2023 10/12/2022 Albumin/Creatinine Ratio 10/21/2023 07/07/2 023, 04/01/2021, 07/16/2020, Additional history exists CKD PHOS USE SMARTSET 80436 10/21/2023 07/0 10/2022, 09/13/2022, 03/19/2022, Additional history [...] the patient have Health Care Power of Convolute Tube Winder? No Full Code 02/28/2021 8:35 AM 03/01/2021 8:18 PM Thi s order reflects the patients wishes and were consensually agreed upon. Question Answer Comments Discussion of Advance Directives occurred with: Patient Full Code 10/06/2020 12:41 AM 10/06/2020 9:21 PM This order reflects the patients wishes and were consensually agreed upon. Question Answer Comments Discussion of Advance Directives occurred with: Patient Care Teams Strategic Client Executive Relationship Specialty Start Date End Date Elías Gilbert MD [address] [address] PCP - General Family Medicine 06/01/21 documented as of this encounter
--- OUTSIDE RECORDS SUMMARY | 2022-12-17 03:21 | External Medical Summary ---
Author Name Unknown Address Unknown Organization K01[facility] [address] [facility] [address] Laboratory Report Ordering Provider Test Date Status OFELIA GONSALEZ 10/20/2022 08:13:22 Final Observation Date Value Abnormality Reference (Units ) Status Color of Urine by Auto 10/20/2022 08:13:22 Light Yellow Colorless, Light Yellow, Yellow, Dark Yellow Final Clarity, Urine 10/20/2022 08:13:22 Clear Clear Final Glucose [Mass/volume] in Urine by Automated test strip 10/20/2022 08:13:22 >=1000 Abnormal Negative (mg/dL) Final Bilirubin.total [Presence] in Urine by Automated test strip 10/20/2022 08:13:22 Negative Negative Final Ketones [Mass/volume] in Urine by Automated test strip 10/20/2022 08:13:22 Negative Negative (mg/dL) Final Specific gravity, Urine 10/20/2022 08:13:22 1.005 1.003-1.030 Final Hemoglobin [Presence] in Urine by Automated test strip 10/20/2022 08:13:22 Negative Negative Final pH, Urine 10/20/2022 08:13:22 6.0 5.0-7.5 (Units) Final Protein [Mass/volume] in Urine by Automated test strip 10/20/2022 08:13:22 Negative Negative (mg/dL) Final Urobilinogen [Mass/volume] in Urine by Automated test strip 10/20/2022 08:13:22 Normal Normal (mg/dL) Final Nitrite [Presence] in Urine by Automated test strip 10/20/2022 08:13:22 Negative Negative Final Leukocyte esterase [Presence] in Urine by Automated test strip 10/20/2022 08:13:22 Large Abnormal Negative Final RBC, Urine 10/20/2022 08:13:22 0-2 0-2 (/HPF) Final WBC, Urine 10/20/2022 08:13:22 20-29 Abnormal 0-2 (/HPF) Final Bacteria [#/area] in Urine sediment by Microscopy high power field 10/20/2022 08:13:22 0-25 0-25 (/HPF) Final Performing Location [facility] [address] [facility] [address]
--- OUTSIDE RECORDS SUMMARY | 2022-12-17 03:21 | External Medical Summary | Summary of Care ---
Author Name Unknown Organization [facility] Address [address] [place] [address] Phone [phone] Care Team Providers Care Metal Or Wood Blocker Name Role Phone Elías Jade MD Primary Care Provider [phone] Reason for Visit * Reason Onset Date Comments Test Results 10/20/202210/23 Encounter Details Date Type Department Care Team Description 10/20/2022 Telephone [facility] [place] [address] [place], [place] [phone] Elías Jade MD [address] [place], [place] [id number] Test Results (10/23) Allergies Active Allergy Reactions Severity Noted Date Comments Eggs Or Egg-Derived Products Diarrhea 021 documented as of this encounter (statuses as of 10/26/2022) Medications Medication Sig Dispensed Refills Start Date End Date Status aspirin enteric coated 81 MG TBEC Take 1 Tablet by mouth in the morning. 0 Active omeprazole (PRILOSEC) 20 MG CPDR Take 1 Capsule by mouth in the morning. 0 Active ProAir HFA 108 (90 Base) MCG/ACT Inhalation Aerosol SolutionIndications: Shortness of breath Inhale 2 Puffs by mouth every 4 hours as needed for Wheezing. 8 g 2 04/01/2022 Active Atorvastatin Calcium 80 MG Oral Tablet (Lipitor)Indications :Dyslipidemia, goal LDL below 100 TAKE 1 TABLET BEFORE BEDTIME 90 Tablet 3 03/28/2022 Active busPIRone HCl 10 MG Oral Tablet (Buspar)Indications: ADRIANA (generalized anxiety disorder) TAKE 1 TABLET THREE [...] 09/25/2022 Active Furosemide 20 MG Oral Tablet (Lasix)Indications:L eft heart failure (HCC) Take 1 Tablet by mouth in the morning. Take second dose 6 hours later for 3lb weight gain overnight.. 45 Tablet 11 10/12/2022 Active hydrOXYzine HCl 25 MG Oral TabletIndications:GA D (generalized anxiety disorder) Take one tablet daily as needed for panic/ anxiety 40 Tablet 2 10/20/2022 Active Cefuroxime Axetil 250 MG Oral Tablet (Ceftin)Indications: Acute cystitis with hematuria Take 1 Tablet by mouth in the morning and 1 Tablet before bedtime. 14 Tablet 0 10/20/2022 Active documented as of this encounter (statuses as of 10/26/2022) Active Problems Problem Noted Date Type 2 [...] as of this encounter (statuses as of 10/26/2022) Resolved Problems Problem Noted Date Resolved Date [...] as of this encounter (statuses as of 10/26/2022) Immunizations Name Administration Dates Next Due DTaP [...] encounter Miscellaneous Notes * Telephone Encounter - Samia King MED RADHA - 10/26/2022 10:57 AM EDT Patient aware and verbalized understanding. Provider to address: Dr Jade Reason for Call: Test Results (10/23) Contact: Telephone Call Contact Type: Test Results Outcome: Patient aware and verbalized understanding Total Time including non face to face (minutes): 5 * Telephone Encounter - Rebecca Shafer CMA - 10/23/2022 9:38 AM EDT Provider to address: n/a Reason for Call: Test Results (10/23) Contact: Telephone Call Contact Type: Test Results Outcome: VM not setup, unable to leave message Total Time including non face to face (minutes): 5 * Telephone Encounter - Elías Jade MD - 10/20/2022 4:48 PM EDT Please advise her urine looks like it may have a UTI. Will treat given drop in renal function. Thanks! Elías Jade MD, PAULA Family Physician João [place] documented in this encounter Plan of Treatment Upcoming Encounters Date Type Specialty Care Team Description 10/30/2022 Office Visit Nephrology Harriet Sharif MD [address] [place] [address] [place] [address] 01/09/2023 Office Visit Family Medicine Mahogany Moncada CRNP [address] [place] [address] Health Maintenance Due Date Last Done Comments COVID-19 Vaccine (#1) 1945 Zoster Vaccines (1 of 2) 1994 DIABETES-EYE EXAM 10/18/2022 10/18/2021, , 06/30/2019 DIABETES-FOOT EXAM 10/21/2022 10/21/2021, 0 07/16/2020, 07/15/2019 Influenza Vaccine (FLU shot) (#1) 2022 07/15/2019, 02/22/2016, 03/08/2015 GFR 04/22/2023 10/20/2022, 09/15, 09/15/2022, Additional history exists HbA1c 04/22/2023 10/20/2022, 08/16, 10/21/2021, Additional history exists CKD HGB USE SMARTSET 59081 09/16/202309/15, 09/15/2022, 09/13/2022, Additional history exists Depression Screening, Annual for Pts 12 and Over 10/13/2023 10/12/2022 Albumin/Creatinine Ratio 10/21/2023 023, 04/01/2021, 07/16/2020, Additional history exists CKD PHOS USE SMARTSET 05640 10/21/2023 07/0 10/2022, 09/13/2022, 03/19/2022, Additional history [...] as of this encounter Visit Diagnoses Diagnosis Acute cystitis with hematuria- Primary Acute cystitis documented in this encounter Advance Directives Latest [...] the patient have Health Care Power of Ledge Man? No Full Code 02/28/2021 8:35 AM 03/01/2021 8:18 PM Thi s order reflects the patients wishes and were consensually agreed upon. Question Answer Comments Discussion of Advance Directives occurred with: Patient Full Code 10/06/2020 12:41 AM 10/06/2020 9:21 PM This order reflects the patients wishes and were consensually agreed upon. Question Answer Comments Discussion of Advance Directives occurred with: Patient Care Teams Metal Or Wood Blocker Relationship Specialty Start Date End Date Elías Jade MD [address] [place] [phone] PCP - General Family Medicine 06/01/21 documented as of this encounter
--- OUTSIDE RECORDS SUMMARY | 2022-12-17 03:21 | External Medical Summary | Summary of Care ---
Author Name Unknown Organization [facility] Address [address] [place] [address] Phone [phone] Care Team Providers Care Claim Examiner Name Role Phone Elías Jade MD Primary Care Provider [phone] Encounter Details Date Type Department Care Team Description 10/20/2022 Hospital Encounter Radiology, [place] [address] [place] [address] Arrived Allergies Active Allergy Reactions Severity Noted Date Comments Eggs Or Egg-Derived Products Diarrhea 021 documented as of this encounter (statuses as of 10/21/2022) Medications Medication Sig Dispensed Refills Start Date [...] as of this encounter (statuses as of 10/21/2022) Active Problems Problem Noted Date Type 2 [...] as of this encounter (statuses as of 10/21/2022) Resolved Problems Problem Noted Date Resolved Date [...] as of this encounter (statuses as of 10/21/2022) Immunizations Name Administration Dates Next Due DTaP [...] Medicine Mahogany Moncada CRNP [address] [place] [id number] Health Maintenance Due Date Last Done Comments COVID-19 Vaccine (#1) 1945 Zoster Vaccines (1 of 2) 1994 DIABETES-EYE EXAM 10/18/2022 10/18/2021, , 06/30/2019 DIABETES-FOOT EXAM 10/21/2022 10/21/2021, 0 07/16/2020, 07/15/2019 Influenza Vaccine (FLU shot) (#1) 2022 07/15/2019, 02/22/2016, 03/08/2015 GFR 04/22/2023 10/20/2022, 09/15, 09/15/2022, Additional history exists HbA1c 04/22/2023 10/20/2022, 08/16, 10/21/2021, Additional history exists CKD HGB USE SMARTSET 26097 09/16/202309/15, 09/15/2022, 09/13/2022, Additional history exists Depression Screening, Annual for Pts 12 and Over 10/13/2023 10/12/2022 Albumin/Creatinine Ratio 10/21/2023 023, 04/01/2021, 07/16/2020, Additional history exists CKD PHOS USE SMARTSET 80612 10/21/2023 07/0 10/2022, 09/13/2022, 03/19/2022, Additional history [...] Procedure Name Priority Date/Time Associated Diagnosis Comments US RENAL Routine 10/20/2022 9:16 AM EDT Kidney disease, chronic, stage IV (GFR 15-29 ml/min) ([facility]) documented in this encounter Results * US RENAL (10/20/2022 9:16 AM EDT) Anatomical Region Laterality Modality Abdomen, Body Ultrasound 10/20/2022 11:3 0 AM EDT Impressions 10/20/2022 11:27 AM EDT IMPRESSION: Abnormal study demonstrating thinned cortex with increased echotexture nonspecific but compatible with chronic medical renal disease. Narrative 10/20/2022 11:27 AM EDT EXAM: US RENAL HISTORY: acutely worsening CKD TECHNIQUE: Real-time scanning performed of kidneys, visualized regional abdominal aorta and urinary bladder. COMPARISON: CT chest dated 03/19/2022; ultrasound renal dated 06/12/2019; CT abdomen pelvis dated 04/11/2019 FINDINGS: Kidneys: Renal size length: Right-12.7 cm and left-11.3 cm. Each renal contour lobulated. In the right kidney are 2 ovoid well-defined sonolucent (allowing for technical artifact) areas ultrasonographically compatible with cysts. One is in the mid/lower aspect of the kidney measuring approximally 4.0 cm x 3.0 cm x 4.0 cm and a 2nd is at the upper aspect of the kidney measuring approximally 4.1 cm x 5.1 cm x 4.0 cm. No other focal lesion. Cortex is bilaterally abnormal demonstrating thinning and increased echotexture. This is nonspecific but compatible with chronic medical renal disease. No hydronephrosis. No demonstrable intrarenal calculus or perinephric abnormality. Visualized regional abdominal aorta: No focal aneurysm. AP measurements: Proximal-2.3 cm, mid-1.7 cm and distal-1.3 cm. Urinary bladder: Unfortunately, poorly distended limiting evaluation. No gross intraluminal lesion. Procedure Note Robbin Gomez MD - 10/20/2022 EXAM: US RENAL HISTORY: acutely worsening CKD TECHNIQUE: Real-time scanning performed of kidneys, visualized regional abdominalaorta and urinary bladder. COMPARISON: CT chest dated 03/19/2022; ultrasound renal dated 06/12/2019; CT abdomenpelvis dated 04/11/2019 FINDINGS: Kidneys: Renal size length: Right-12.7 cm and left-11.3 cm. Each renal contour lobulated. In the right kidney are 2 ovoidwell-defined sonolucent (allowing for technical artifact) areasultrasonographically compatible with cysts. One is in the mid/loweraspect of the kidney measuring approximally 4.0 cm x 3.0 cm x 4.0 cm and a2nd is at the upper aspect of the kidney measuring approximally 4.1 cm x5.1 cm x 4.0 cm. No other focal lesion. Cortex is bilaterally abnormal demonstrating thinning and increasedechotexture. This is nonspecific but compatible with chronic medicalrenal disease. No hydronephrosis. No demonstrable intrarenal calculus or perinephric abnormality. Visualized regional abdominal aorta: No focal aneurysm. AP measurements:Proximal-2.3 cm, mid-1.7 cm and distal-1.3 cm. Urinary bladder: Unfortunately, poorly distended limiting evaluation. Nogross intraluminal lesion. IMPRESSION IMPRESSION: Abnormal study demonstrating thinned cortex with increased echotexturenonspecific but compatible with chronic medical renal disease. lEías Jade MD RAD ULTRASOUND documented in this encounter Visit Diagnoses Diagnosis Kidney disease, chronic, stage IV (GFR 15-29 ml/min) (HCC) Chronic kidney disease, Stage IV (severe) documented in this encounter Advance Directives Latest [...] the patient have Health Care Power of Senior Gl Accountant? No Full Code 02/28/2021 8:35 AM 03/01/2021 8:18 PM Th is order reflects the patients wishes and were consensually agreed upon. Question Answer Comments Discussion of Advance Directives occurred with: Patient Full Code 10/06/2020 12:41 AM 10/06/2020 9:21 PM This order reflects the patients wishes and were consensually agreed upon. Question Answer Comments Discussion of Advance Directives occurred with: Patient Care Teams Claim Examiner Relationship Specialty Start Date End Date Elías Jade MD [facility] [place] [address] PCP - General Family Medicine 06/01/21 documented as of this encounter
--- OUTSIDE RECORDS SUMMARY | 2022-12-17 03:21 | External Medical Summary | Summary of Care ---
Author Name Unknown Organization [facility] Address [address] [place] [address] Phone [phone] Care Team Providers Care Marketing Technology Specialist Name Role Phone Elías Gilbert MD Primary Care Provider [phone] Reason for Visit * Reason Comments eRx-Medication Refill Encounter Details Date Type Department Care Team Description 11/28/2022 Refill [facility] [address] [place] [address] Elías Gilbert MD [address] [place] [address] Left heart failure (HCC) Allergies Active Allergy Reactions Severity Noted Date [...] 10/20/2022 Active Furosemide 20 MG Oral Tablet (Lasix)Indicatio ns:Left heart failure (HCC) Take 1 Tablet by mouth in the morning. Take second dose 6 hours later for 3lb weight gain overnight 90 Tablet 3 11/29/2022 Active Famotidine 20 MG Oral Tablet (Pepcid) Take 1 Tablet by mouth in the morning. 90 Tablet 1 11/29/2022 Active Furosemide 20 MG Oral Tablet (Lasix)Indicatio ns:Left heart failure (HCC) Take 1 Tablet by mouth in the morning. Take second dose 6 hours later for 3lb weight gain overnight.. 45 Tablet 11 10/12/2022 3 Discontinued documented as of this encounter [...] encounter Miscellaneous Notes * Telephone Encounter - Fidencio Lau [facility] - 11/29/2022 11:04 AM EDT Signed Prescriptions: Disp Refills Furosemide 20 MG Oral Tablet (Lasix) 90 Tab*3 Sig: Take 1 Tabletby mouth in the morning. Take second dose 6 hours later for 3lb weight gain overnightAuthorizing Provider: ELÍAS GILBERT User: FIDENCIO LAU documented in this encounter Plan of Treatment Upcoming Encounters Date Type Specialty Care Team Description 12/28/2022 Office Visit Nephrology Harriet Sharif MD [address] [place] [address] [place] [address] 01/09/2023 Office Visit Family Medicine Mahogany Moncada CRNP 21 [facility] [place] [address] Health Maintenance Due Date Last Done Comments COVID-19 Vaccine (#1) 1945 Zoster Vaccines (1 of 2) 1994 DIABETES-EYE EXAM 10/18/2022 10/18/2021, , 06/30/2019 DIABETES-FOOT EXAM 10/21/2022 10/21/2021, 0 07/16/2020, 07/15/2019 Influenza Vaccine (FLU shot) (#1) 2022 07/15/2019, 02/22/2016, 03/08/2015 GFR 04/22/2023 10/20/2022, 09/15, 09/15/2022, Additional history exists HbA1c 04/22/2023 10/20/2022, 08/16, 10/21/2021, Additional history exists CKD HGB USE SMARTSET 25877 09/16/202309/15, 09/15/2022, 09/13/2022, Additional history exists Depression Screening, Annual for Pts 12 and Over 10/13/2023 10/12/2022 Albumin/Creatinine Ratio 10/21/2023 023, 04/01/2021, 07/16/2020, Additional history exists CKD PHOS USE SMARTSET 33214 10/21/2023 07/0 10/2022, 09/13/2022, 03/19/2022, Additional history [...] as of this encounter Visit Diagnoses Diagnosis Left heart failure (HCC) Left heart failure documented in this encounter Advance Directives Latest [...] the patient have Health Care Power of Floor Waxer? No Full Code 02/28/2021 8:35 AM 03/01/2021 8:18 PM Thi s order reflects the patients wishes and were consensually agreed upon. Question Answer Comments Discussion of Advance Directives occurred with: Patient Full Code 10/06/2020 12:41 AM 10/06/2020 9:21 PM This order reflects the patients wishes and were consensually agreed upon. Question Answer Comments Discussion of Advance Directives occurred with: Patient Care Teams Marketing Technology Specialist Relationship Specialty Start Date End Date Elías Gilbert MD [facility] [place] [address] PCP - General Family Medicine 06/01/21 documented as of this encounter
--- OUTSIDE RECORDS SUMMARY | 2022-12-17 03:21 | External Medical Summary | Summary of Care ---
Author Name Unknown Organization [facility] Address [address] [place] [address] Phone [phone] Care Team Providers Care Sql Database Programmer Name Role Phone Elías Jade MD Primary Care Provider [phone] Reason for Visit * Reason Comments Follow Up * Evaluate & Treat - Unlimited Visits (Within 10 days (routine)) - Pending Review Specialty Diagnoses / Procedures Referred By Olivia t Referred To Contact Nephrology Diagnoses Kidney disease, chronic, stage IV (GFR 15-29 ml/min) ([facility]) Elías Jade MD [address] [place] [address] Referral ID Status Reason Start Date Expiration Date Visits Requested Visits Authorized [id number] Pending Review Specialty Services Required 10/13/[phone] Encounter Details Date Type Department Care Team Description 10/30/2022 Office Visit Nephrology, [address] [address] Harriet Sharif MD [address] [place] [address] Stage 3b chronic kidney disease (HCC)*; HTN, goal below 140/90 Allergies Active Allergy Reactions Severity Noted Date Comments Eggs Or Egg-Derived Products Diarrhea 021 documented as of this encounter (statuses as of 10/30/2022) Medications Medication Sig Dispensed Refills Start Date [...] as of this encounter (statuses as of 10/30/2022) Active Problems Problem Noted Date Type 2 [...] as of this encounter (statuses as of 10/30/2022) Resolved Problems Problem Noted Date Resolved Date [...] as of this encounter (statuses as of 10/30/2022) Immunizations Name Administration Dates Next Due DTaP [...] Date Smoking Tobacco: Never Smokeless Tobacco: Never Tobacco Cessation:Counseling Given: Not Answered Alcohol Use Standard Drinks/Week Comments Never 0 [...] on file documented as of this encounter Last Filed Vital Signs Vital Sign Reading Time Taken Comments Blood Pressure 159/77 10/30/2022 2:05 PM EDT Pulse 61 10/30/2022 2:05 PM EDT Temperature - - Respiratory Rate - - Oxygen Saturation - - Inhaled Oxygen Concentration - - Weight 103.2 kg (227 lb 9.6 oz) 10/30/2022 2:05 PM EDT Height - - Body Mass Index 36.74 09/16/2022 4:05 AM EDT documented in this encounter Functional Status Functional Status Response [...] No 09/16/2022 documented as of this encounter Progress Notes * Harriet Sharif MD - 10/30/2022 2:28 PM EDT Sahra Rodríguez is a 77 year old female. Chief Complaint Patient presents with Follow Up HPI: 77-year-old referred for CKD 3b/4. PMH- diabetes, MANDY,HTN, GERD. Progressive CKD least since 2019, baseline creatinine in mid 1s, non proteinuric. REent decline in renal functions secondary to over-diuresis/UTI -Ultrasound scan shows normal size kidney with cyst and medical renal disease Cath at [facility],( September 20) showing epicardial CAD, echo with EF 30-35%. Reduced renal function, and planned to see her patent examiner on discharge, Dr. Gardner,previous Aortic replacment at [place] in 2011. Renal history NSAIDS- no Renal stones- no Family renal disease- no Denies any dysuric symptoms. Asymptomatic on exam PMH: Patient Active Problem List Diagnosis Code Type 2 diabetes mellitus with hemoglobin A1c goal of less than 7.0% ([facility]) E11.9 Dyslipidemia, goal LDL below 100 E78.5 ADRIANA (generalized anxiety disorder) F41.1 S/P aortic valve replacement Z95.2 Right renal mass N28.89 Type 2 diabetes mellitus with diabetic chronic kidney disease ([facility]) E11.22 Secondary hyperparathyroidism, non-renal ([facility]) E21.1 B12 deficiency E53.8 Severe obesity with body mass index (BMI) of 35.0 to 39.9 with serious comorbidity ([facility]) E66.01 MANDY (obstructive sleep apnea) G47.33 Other chest pain R07.89 Left bundle branch block (LBBB) I44.7 Uncontrolled hypertension I10 Left heart failure ([facility]) I50.1 Type 2 diabetes mellitus with stage 3b chronic kidney disease ([facility]) E11.22, N18.32 Chronic kidney disease, stage 3b ([facility]) N18.32 GERD (gastroesophageal reflux disease) K21.9 Stress F43.9 Type 2 diabetes mellitus with stage 3a chronic kidney disease, without long- term current use ofinsulin ([facility]) E11.22, N18.31 Current Outpatient Medications Medication Sig Dispense Refill aspirin enteric coated 81 MG TBEC Take 1 Tablet by mouth in the morning. omeprazole (PRILOSEC) 20 MG CPDR Take 1 Capsule by mouth in the morning. Atorvastatin Calcium 80 MG Oral Tablet (Lipitor) TAKE 1 TABLET BEFORE BEDTIME 90 Tablet 3 busPIRone HCl 10 MG Oral Tablet (Buspar) TAKE 1 TABLET THREE TIMES DAILY NEEDED FOR ANXIETY 270 Tablet 3 Lisinopril 20 MG Oral Tablet (Prinivil) Take 2 tablets by mouth every morning 60 Tablet 0 Famotidine 20 MG Oral Tablet (Pepcid) Take 1 Tablet by mouth every morning. 60 Tablet 0 Farxiga 10 MG Oral Tablet Take 1 Tablet by mouth in the morning. Furosemide 20 MG Oral Tablet (Lasix) Take 1 Tablet by mouth in the morning. Take second dose 6 hours later for 3lb weight gain overnight.. 45 Tablet 11 hydrOXYzine HCl 25 MG Oral Tablet Take one tablet daily as needed for panic/ anxiety 40 Tablet 2 Cefuroxime Axetil 250 MG Oral Tablet (Ceftin) Take 1 Tablet by mouth in the morning and 1 Tablet before bedtime. 14 Tablet 0 ProAir HFA 108 (90 Base) MCG/ACT Inhalation Aerosol Solution Inhale 2 Puffs by mouth every 4 hours as needed for Wheezing. (Patient not taking: Reported on 10/30/2022) 8 g 2 No current facility-administered medications for this visit. Past Medical History: Diagnosis Date Anxiety 2015 Diabetes (HCC) 2005 approx GERD (gastroesophageal reflux disease) Past Surgical History: Procedure Laterality Date REMOVE CATARACT, INSERT LENS PROSTH Bilateral REMOVE GALLBLADDER 1986 REPLACEMENT OF AORTIC VALVE (KONNO) 2010 23mm Jocelynn Coto pericardial bioprosthesis Review of patient's allergies indicates: Allergen Reactions Eggs Or Egg-Derived Products Diarrhea Family History Problem Relation Age of Onset Heart attack Mother Stroke Sister Cancer Brother unknown primary Family Status Relation Status Mo Fa at age 20 accidental , fell off a porch roof Sis Alive Bro at age 79 complications of sepsis MGMA MGFA PGMA PGFA Bro Social History Socioeconomic History Marital status: Spouse name: Not on file Number of children: Not on file Years of education: Not on file Highest education level: Not on file Occupational History Not on file Tobacco Use Smoking status: Never Smokeless tobacco: Never Vaping Use Vaping Use: Never used Substance and Sexual Activity Alcohol use: Never Drug use: Never Comment: no h/o IVDA Sexual activity: Not Currently Other Topics Concern Not on file Social History Narrative Not on file Social Determinants of Health Financial Resource Strain: Not on file Food Insecurity: Not on file Transportation Needs: Not on file Physical Activity: Not on file Stress: Not on file Social Connections: Not on file Intimate Partner Violence: Not on file Housing Stability: Not on file Latest Ref Rng 05/26/2021 06/04/2021 10/21/2021 03/19/2022 NEPH-FLOW Bun 6 - 20 mg/dL 12 12 17 18 Bun 20 Cr 0.5 - 1.0 mg/dL 1.2 (H) 1.2 (H) 1.3 (H) 1.4 (H) Cr 1.4 (H) eGFR >=60 mL/min 48 (L) 46 (L) 43 (L) 40 (L) eGFR 38 (L) eGFR >60 K 3.5 - 5.1 mmol/L 4.0 4.9 4.6 4.4 K 3.9 Hb 12.0 - 15.3 g/dL 11.1 (L) 11.8 (L) 9.6 (L) Hb 10.8 (L) Microalb/cr ratio <30 mg/g creat Latest Ref Rng 09/12/2022 09/13/2022 09/15/2022 10/12/2022 NEPH-FLOW Bun 6 - 20 mg/dL 16 15 24 (H) 42 (H) Cr 0.5 - 1.0 mg/dL 1.4 (H) 1.3 (H) 1.7 (H) 2.6 (H) eGFR >=60 mL/min 39 (L) 44 (L) 31 (L) 18 (L) eGFR >60 K 3.5 - 5.1 mmol/L 3.7 3.8 3.9 5.1 Hb 12.0 - 15.3 g/dL 10.3 (L) 9.3 (L) 11.1 (L) Microalb/cr ratio <30 mg/g creat Latest Ref Rng 10/20/2022 NEPH-FLOW Bun 6 - 20 mg/dL 24 (H) Cr 0.5 - 1.0 mg/dL 2.1 (H) eGFR >=60 mL/min 24 (L) eGFR >60 K 3.5 - 5.1 mmol/L 4.1 Hb 12.0 - 15.3 g/dL Microalb/cr ratio <30 mg/g creat Constitutional- Well , no complains Eyes: (-) negative, no pain, blurred vision, or redness ENT: (-) negative: no headaches, vertigo, hearing loss, sinus, ear, or throat problems Cardiovascular: (-) negative: no chest pain, dyspnea, syncope, or palpitations Pulmonary : (-) negative: no cough, wheezing, or shortness of breath Abdominal/GI: (-) negative: no pain, heartburn, dysphagia, bleeding, change in bowel habits, nauseaor vomiting Extremities, no edema Skin - warm , no rashes Psy - Normal mood and affect. Objective: BP 159/77 | Pulse 61 | Wt 103.2 kg (227 lb 9.6 oz) | BMI 36.74 kg/m | BSA 2.19 m GEN: Comfortable HEENT: NC/AT, OP clear NECK: supple CV: RRR no M/R/G PULM: CTAB ABD: soft, non-tender, obese abdomen EXT: No Edema NEURO: Awake and alert Skin: no rashes or significant lesions BP Readings from Last 5 Encounters: 10/30/22 159/77 10/12/22 126/62 09/16/22 101/55 09/13/22 146/79 08/29/22 154/75 Wt Readings from Last 5 Encounters: 10/30/22 103.2 kg (227 lb 9.6 oz) 10/12/22 98.7 kg (217 lb 11.2 oz) 09/15/22 101.2 kg (223 lb) 09/13/22 104.8 kg (231 lb) 08/29/22 102.1 kg (225 lb) ASSESSMENT: CKD stage IIIB 2/ Diabetes, hypertension -baseline creatinine in mid 1s. ReCent decline secondary to over-diuresis/UTI---his improving Patient risk of progression to kidney failure requiring dialysis or transplant based on the 4-variable Kidney Failure Risk Equation (Tangri et al. TAWANDA 2011): At 2 years 5.16% At 5 years 15.24% -uplv-ul-welcjzce risk of progression to ESRD -blood sugar control is good,agree with withholding metformin, continue on SGL T2. Blood pressure-raised in clinic today. -she says her home readings are better -will maintain a blood pressure diary before next visit -changes made today -continue on lisinopril -p.r.n. furosemide. CKD MBD-PTH raised-can be hyperparathyroidism, D levels today, would need replacement if low than 30 Seen in 3 months time CMP Harriet Sharif MD This chart was completed in part utilizing [employer] Speech Voice Recognition Software. Randomword insertions, pronoun errors, and incomplete sentences are an occasional consequence of this system due to software limitations, and ambient noise. Any questions or concerns about the content, text, or information contained within the body of this dictation should be directly addressed to the provider for clarification. documented in this encounter Nursing Notes * Mercedez Luque LPN - 10/30/2022 2:05 PM EDT Chief Complaint Patient presents with Follow Up documented in this encounter Plan of Treatment Upcoming Encounters Date Type Specialty Care Team Description 12/28/2022 Office Visit Nephrology Harriet Sharif MD [address] [place], [place] [address] [address] 01/09/2023 Office Visit Family Medicine Mahogany Moncada CRNP [address] [place] [id number] Scheduled Orders Name Type Priority Associated Diagnoses Orde r Schedule COMPREHENSIVE METABOLIC PANEL Lab Routine Stage 3b chronic kidney disease (HCC) Expected: 10/30/2022, Expires: 10/31/2023 COMPREHENSIVE METABOLIC PANEL Lab Routine Stage 3b chronic kidney disease (HCC) Expected: 04/01/2023, Expires: 10/31/2023 25-HYDROXY VITAMIN D Lab Routine Stage 3b chronic kidney disease (HCC) HTN, goal below 140/90 Expected: 10/30/2022, Expires: 10/31/2023 Health Maintenance Due Date Last Done Comments COVID-19 Vaccine (#1) 1945 Zoster Vaccines (1 of 2) 1994 DIABETES-EYE EXAM 10/18/2022 10/18/2021, , 06/30/2019 DIABETES-FOOT EXAM 10/21/2022 10/21/2021, 0 07/16/2020, 07/15/2019 Influenza Vaccine (FLU shot) (#1) 2022 07/15/2019, 02/22/2016, 03/08/2015 GFR 04/22/2023 10/20/2022, 09/15, 09/15/2022, Additional history exists HbA1c 04/22/2023 10/20/2022, 08/16, 10/21/2021, Additional history exists CKD HGB USE SMARTSET 41695 09/16/202309/15, 09/15/2022, 09/13/2022, Additional history exists Depression Screening, Annual for Pts 12 and Over 10/13/2023 10/12/2022 Albumin/Creatinine Ratio 10/21/2023 072 023, 04/01/2021, 07/16/2020, Additional history exists CKD PHOS USE SMARTSET 32004 10/21/2023 07/0 10/2022, 09/13/2022, 03/19/2022, Additional history [...] as of this encounter Visit Diagnoses Diagnosis Stage 3b chronic kidney disease (HCC)- Primary HTN, goal below 140/90 Unspecified essential hypertension documented in this encounter Advance Directives Latest [...] the patient have Health Care Power of Blade Changer? No Full Code 02/28/2021 8:35 AM 03/01/2021 8:18 PM Thi s order reflects the patients wishes and were consensually agreed upon. Question Answer Comments Discussion of Advance Directives occurred with: Patient Full Code 10/06/2020 12:41 AM 10/06/2020 9:21 PM This order reflects the patients wishes and were consensually agreed upon. Question Answer Comments Discussion of Advance Directives occurred with: Patient Care Teams Sql Database Programmer Relationship Specialty Start Date End Date Elías Jade MD [address] [place] [address] PCP - General Family Medicine 06/01/21 documented as of this encounter"
--- OUTSIDE RECORDS SUMMARY | 2022-12-17 03:21 | External Medical Summary | Summary of Care ---
Author Name Unknown Organization [facility] Address [address] [place] [address] Phone [phone] Care Team Providers Care Stencil Typist Name Role Phone Elías Jade MD Primary Care Provider [phone] Reason for Visit * Reason Onset Date Comments Test Results 10/20/202210/23 Encounter Details Date Type Department Care Team Description 10/20/[address] [facility] [address] [place], [place] [id number] Elías Jade MD [address] [place], [place] [id number] Test Results (10/23) Allergies Active Allergy Reactions [...] encounter Miscellaneous Notes * Telephone Encounter - Rebecca Shafer CMA [...] Medicine Mahogany Moncada CRNP [address] [place] [id number] Health Maintenance Due Date Last Done Comments COVID-19 Vaccine (#1) 1945 Zoster Vaccines (1 of 2) 1994 DIABETES-EYE EXAM 10/18/2022 10/18/2021, , 06/30/2019 DIABETES-FOOT EXAM 10/21/2022 10/21/2021, 0 07/16/2020, 07/15/2019 Influenza Vaccine (FLU shot) (#1) 2022 07/15/2019, 02/22/2016, 03/08/2015 GFR 04/22/2023 10/20/2022, 09/15, 09/15/2022, Additional history exists HbA1c 04/22/2023 10/20/2022, 08/16, 10/21/2021, Additional history exists CKD HGB USE SMARTSET 92816 09/16/202309/15, 09/15/2022, 09/13/2022, Additional history exists Depression Screening, Annual for Pts 12 and Over 10/13/2023 10/12/2022 Albumin/Creatinine Ratio 10/21/2023 023, 04/01/2021, 07/16/2020, Additional history exists CKD PHOS USE SMARTSET 95967 10/21/2023 07/0 10/2022, 09/13/2022, 03/19/2022, Additional history [...] the patient have Health Care Power of Podiatric Medicine Doctor? No Full Code 02/28/2021 8:35 AM 03/01/2021 8:18 PM Thi s order reflects the patients wishes and were consensually agreed upon. Question Answer Comments Discussion of Advance Directives occurred with: Patient Full Code 10/06/2020 12:41 AM 10/06/2020 9:21 PM This order reflects the patients wishes and were consensually agreed upon. Question Answer Comments Discussion of Advance Directives occurred with: Patient Care Teams Stencil Typist Relationship Specialty Start Date End Date Elías Jade MD [address] [facility] [place] [id number] PCP - General Family Medicine 06/01/21 documented as of this encounter
--- OUTSIDE RECORDS SUMMARY | 2022-12-17 03:21 | External Medical Summary | Summary of Care ---
Author Name Unknown Organization [facility] Address [address] [place] [address] Phone [phone] Care Team Providers Care Pipe Layer Name Role Phone Elías Jade MD Primary Care Provider [phone] Reason for Visit * Reason Onset Date Comments Appointment 10/16/2022 Encounter Details Date Type Department Care Team Description 10/16/2022 Telephone Nephrology, [address] [address] Harriet Shraif MD [address] [place] [address] Appointment Allergies Active Allergy Reactions Severity [...] encounter Miscellaneous Notes * Telephone Encounter - Emi Holman, MANDY - 10/20/2022 1:22 PM EDT 10/20 called patient and can't let a voicemail. Voicemail box hasn't been set up yet. I wont be able to send a [employer] message due to it not being active. Please let us know what to do with the referral. * Telephone Encounter - MANDY Browning - 10/16/2022 1:22 PM EDT 10/16 called patient. Patient doesn't have voicemail box set up yet so couldn't leave a message. Trying to schedule a new nephrology appointment in [place]. Referral is under active requests. documented in this encounter Plan of Treatment Upcoming Encounters Date Type Specialty Care Team Description 01/09/2023 Office Visit Family Medicine Mahogany Moncada CRNP [address] [facility] [place] [address] Health Maintenance Due Date Last Done Comments [...] Additional history exists CKD PHOS USE SMARTSET 29717 09/14/2023 08/16, 03/19/2022, 10/21/2021 CKD HGB USE SMARTSET 96539 09/16/202309/15, 09/15/2022, 09/13/2022, Additional history exists Depression [...] the patient have Health Care Power of Systems Programmer Analyst? No Full Code 02/28/2021 8:35 AM 03/01/2021 8:18 PM Thi s order reflects the patients wishes and were consensually agreed upon. Question Answer Comments Discussion of Advance Directives occurred with: Patient Full Code 10/06/2020 12:41 AM 10/06/2020 9:21 PM This order reflects the patients wishes and were consensually agreed upon. Question Answer Comments Discussion of Advance Directives occurred with: Patient Care Teams Pipe Layer Relationship Specialty Start Date End Date Elías Jade MD [place] [id number] PCP - General Family Medicine 06/01/21 documented as of this encounter
--- OUTSIDE RECORDS SUMMARY | 2022-12-17 03:21 | External Medical Summary | Summary of Care ---
Author Name Unknown Organization [facility] Address [address] [place] [address] Phone [phone] Care Team Providers Care Door Opener Name Role Phone Elías Jade MD Primary Care Provider [phone] Reason for Visit * Reason Onset Date Comments Order Request 11/01/2022 Encounter Details Date Type Department Care Team Description 11/01/2022 Telephone Nephrology, [address] [address] Harriet Sharif MD [address] [place] [address] Order Request Allergies Active Allergy Reactions Severity Noted Date Comments Eggs Or Egg-Derived Products Diarrhea 021 documented as of this encounter (statuses as of 11/06/2022) Medications Medication Sig Dispensed Refills Start Date [...] as of this encounter (statuses as of 11/06/2022) Active Problems Problem Noted Date Type 2 [...] as of this encounter (statuses as of 11/06/2022) Resolved Problems Problem Noted Date Resolved Date [...] as of this encounter (statuses as of 11/06/2022) Immunizations Name Administration Dates Next Due DTaP [...] encounter Miscellaneous Notes * Telephone Encounter - Mary Roa LPN - 11/06/2022 10:08 AM EDT Received a call from Alisa with [facility]. Patient was there in their lab and told them she was there to have labs to follow up on kidneys. They asked that I refax orders. Pt stated she is no longer on the antibiotic and is not having any UTI symptoms. refaxed orders to [facility] at [phone]. * Telephone Encounter - Mercedez Luque LPN - 11/02/2022 3:21 PM EDT Pt is aware. * Telephone Encounter - Mercedez Luque LPN - 11/02/2022 9:33 AM EDT Lab orders printed, faxed and received by [facility]. No answer by phone to inform pt. Will call later. * Telephone Encounter - MANDY Rosales - 11/01/2022 12:38 PM EDT Please forward lab orders for patient to have Comprehensive Metabolic Panel and 25-Hydroxy Vitamin D to the following lab: [facility] at Fax number ([phone]). That lab is in patient's network for [...] Office Visit Nephrology Harriet Sharif MD [address] [place] [phone] 01/09/2023 Office Visit Family Medicine Mahogany Moncada CRNP 21 [facility] [place] [address] Health Maintenance Due Date Last Done Comments COVID-19 Vaccine (#1) 1945 Zoster Vaccines (1 of 2) 1994 DIABETES-EYE EXAM 10/18/2022 10/18/2021, , 06/30/2019 DIABETES-FOOT EXAM 10/21/2022 10/21/2021, 0 07/16/2020, 07/15/2019 Influenza Vaccine (FLU shot) (#1) 2022 07/15/2019, 02/22/2016, 03/08/2015 GFR 04/22/2023 10/20/2022, 09/15, 09/15/2022, Additional history exists HbA1c 04/22/2023 10/20/2022, 08/16, 10/21/2021, Additional history exists CKD HGB USE SMARTSET 56015 09/16/202309/15, 09/15/2022, 09/13/2022, Additional history exists Depression Screening, Annual for Pts 12 and Over 10/13/2023 10/12/2022 Albumin/Creatinine Ratio 10/21/20232 023, 04/01/2021, 07/16/2020, Additional history exists CKD PHOS USE SMARTSET 89904 10/21/2023 07/0 10/2022, 09/13/2022, 03/19/2022, Additional history [...] the patient have Health Care Power of Sand Cutting Machine Operator? No Full Code 02/28/2021 8:35 AM 03/01/2021 8:18 PM Thi s order reflects the patients wishes and were consensually agreed upon. Question Answer Comments Discussion of Advance Directives occurred with: Patient Full Code 10/06/2020 12:41 AM 10/06/2020 9:21 PM This order reflects the patients wishes and were consensually agreed upon. Question Answer Comments Discussion of Advance Directives occurred with: Patient Care Teams Door Opener Relationship Specialty Start Date End Date Elías Jade MD [place] [phone] PCP - General Family Medicine 06/01/21 documented as of this encounter
--- OUTSIDE RECORDS SUMMARY | 2022-12-17 03:21 | External Medical Summary | Summary of Care ---
Author Name Unknown Organization [facility] Address [address] [place] [address] Phone [phone] Care Team Providers Care Goal Umpire Name Role Phone Elías Jade MD Primary Care Provider [phone] Encounter Details Date Type Department Care Team Description 10/20/2022 Telephone [facility] [place] [address] [place] [address] Elías Jade MD [address] [place] [address] Allergies Active Allergy Reactions Severity [...] shot) (#1) 2022 07/15/2019, 02/22/2016, 03/08/2015 GFR 04/13/2023 10/12/2022, 06/0 05/2022, 09/13/2022, Additional history exists HbA1c 04/22/2023 10/20/2022, 08/16, 10/21/2021, Additional history exists CKD PHOS USE SMARTSET 22973 09/14/202308/16, 03/19/2022, 10/21/2021 CKD HGB USE SMARTSET 44099 09/16/202309/15, 09/15/2022, 09/13/2022, Additional history exists Depression Screening, Annual for Pts 12 and Over 10/13/2023 10/12/2022 Albumin/Creatinine Ratio 10/21/2023 023, 04/01/2021, 07/16/2020, Additional history exists DXA Scan 03/11/2026 03/11/2019 [...] the patient have Health Care Power of Motor Rebuilder? No Full Code 02/28/2021 8:35 AM 03/01/2021 8:18 PM Thi s order reflects the patients wishes and were consensually agreed upon. Question Answer Comments Discussion of Advance Directives occurred with: Patient Full Code 10/06/2020 12:41 AM 10/06/2020 9:21 PM This order reflects the patients wishes and were consensually agreed upon. Question Answer Comments Discussion of Advance Directives occurred with: Patient Care Teams Goal Umpire Relationship Specialty Start Date End Date Elías Jade MD [place] [id number] PCP - General Family Medicine 06/01/21 documented as of this encounter
--- OUTSIDE RECORDS SUMMARY | 2022-12-17 03:22 | External Medical Summary | Summary of Care ---
Author Name Unknown Organization [facility] Address [address] [place] [address] Phone [phone] Care Team Providers Care Electronic Intelligence Officer Name Role Phone Elías aJde MD Primary Care Provider [phone] [phone] Reason for Visit * Reason Onset Date Comments Appointment 10/16/2022 Encounter Details Date Type Department Care Team Description 10/16/2022 Telephone Nephrology, [address] [address] Harriet Sharif MD [address] [place] [address] Appointment Allergies Active Allergy Reactions Severity Noted Date Comments Eggs Or Egg-Derived Products Diarrhea 021 documented as of this encounter (statuses as of 10/16/2022) Medications Medication Sig Dispensed Refills Start Date [...] Active Escitalopram Oxalate 10 MG Oral Tablet (Lexapro)Indications :ADRIANA (generalized anxiety disorder) Take 1 Tablet by mouth in the morning. 90 Tablet 3 10/12/2022 Active documented as of this encounter (statuses as of 10/16/2022) Active Problems Problem Noted Date Type 2 [...] as of this encounter (statuses as of 10/16/2022) Resolved Problems Problem Noted Date Resolved Date [...] as of this encounter (statuses as of 10/16/2022) Immunizations Name Administration Dates Next Due DTaP [...] Telephone Encounter - Emi Holman, MANDY - 10/16/2022 1:22 PM EDT 10/16 called patient. Patient doesn't have voicemail box set up yet so couldn't leave a message. Trying to schedule a new nephrology appointment in [place]. Referral is under active requests. documented in this encounter Plan of Treatment Upcoming Encounters Date Type Specialty Care Team Description 10/20/2022 Laboratory [facility] [place] [address] [place] [id number] 10/20/2022 Appointment Radiology 01/09/2023 Office Visit Family Medicine Mahogany Moncada [...] Additional history exists CKD PHOS USE SMARTSET 07173 09/14/2023 05/3 04/2022, 03/19/2022, 10/21/2021 CKD HGB USE SMARTSET 30897 09/16/202309/15, 09/15/2022, 09/13/2022, Additional history exists Depression [...] the patient have Health Care Power of Aircraft Instrument Repairer? No Full Code 02/28/2021 8:35 AM 03/01/2021 8:18 PM Thi s order reflects the patients wishes and were consensually agreed upon. Question Answer Comments Discussion of Advance Directives occurred with: Patient Full Code 10/06/2020 12:41 AM 10/06/2020 9:21 PM This order reflects the patients wishes and were consensually agreed upon. Question Answer Comments Discussion of Advance Directives occurred with: Patient Care Teams Electronic Intelligence Officer Relationship Specialty Start Date End Date Elías Jade MD [facility] [place] [address] PCP - General Family Medicine 06/01/21 documented as of this encounter
--- OUTSIDE RECORDS SUMMARY | 2022-12-17 03:22 | External Medical Summary ---
Author Name Unknown Address Unknown Organization K01:[facility] [place] - [address] [place] [address] Laboratory Report Ordering Provider Test Date Status OFELIA GONSALEZ 10/12/2022 11:42:10 Final Observation Date Value Abnormality Reference (Units ) Status BUN 10/12/2022 11:42:10 42 Above high normal 6-20 (mg/dL) Final Creatinine 10/12/2022 11:42:10 2.6 Above high normal 0.5-1.0 (mg/dL) Final Glomerular filtration rate/1.73 sq M.predicted [Volume Rate/Area] in Serum, Plasma or Blood by Creatinine-based formula (CKD-EPI) 10/12/2022 11:42:10 18 Below low normal >=60 (mL/min) Final Performing Location [facility] [place] - [address] [place] [id number]
--- OUTSIDE RECORDS SUMMARY | 2022-12-17 03:22 | External Medical Summary | Summary of Care ---
Author Name Unknown Organization [facility] Address [address] [place] [address] Phone [phone] Care Team Providers Care M48/M60 Tank Driver Name Role Phone Elías Jade MD Primary Care Provider [phone] Reason for Visit * Reason Comments Hospital Follow-Up [facility] [place] hospital dischar 09/15-09/16 and also [facility] 09/18- 09/22. Patient states she was told at 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 She wants to discuss her medications. Encounter Details Date Type Department Care Team Description 10/12/2022 Office Visit Thee Pathak 21 [facility] [place] [address] Elías Jade MD 21 [facility] [place] [id number] Encounter for examination following treatment at hospital*; Left heart failure (HCC); Type 2 diabetes mellitus with stage 3a chronic kidney disease, without long-term current use of insulin (HCC); Severe obesity with body mass index (BMI) of 35.0 to 39.9 with serious comorbidity (HCC); Secondary hyperparathyroidism, non-renal (HCC); ADRIANA (generalized anxiety disorder); Need for hepatitis C screening test Allergies Active Allergy Reactions Severity Noted Date Comments Eggs Or Egg-Derived Products Diarrhea 021 documented as of this encounter (statuses as of 10/12/2022) Medications Medication Sig Dispensed Refills Start Date End Date Status aspirin enteric coated 81 MG TBEC Take 1 Tablet by mouth in the morning. 0 Active omeprazole (PRILOSEC) 20 MG CPDR Take 1 Capsule by mouth in the morning. 0 Active metFORMIN HCl 1000 MG Oral Tablet (Glucophage)Indic ations:Type 2 diabetes mellitus with stage 3a chronic kidney disease, without long-term current use of insulin (HCC) Take by mouth 1 Tablet 2 times a day with morning and evening meals . 180 Tablet 2 09/16/2021 Active ProAir HFA 108 (90 Base) MCG/ACT [...] every morning 60 Tablet 0 09/13/2022 Active Metoprolol Succinate ER 50 MG Oral Tablet Extended Release 24 Hour (toPROL XL) Take 1 Tablet by mouth in the morning. 30 Tablet 0 09/13/2022 10/13/2022 Active Famotidine 20 MG Oral Tablet (Pepcid) [...] the morning. 90 Tablet 3 10/12/2022 Active Escitalopram Oxalate 10 MG Oral Tablet (Lexapro)Indicati ons:ADRIANA (generalized anxiety disorder) Take 1 Tablet by mouth daily. 90 Tablet 1 03/07/2021 10/12/2022 Discontinued (Refill) Furosemide 40 MG Oral Tablet (Lasix) Take 1 Tablet by mouth in the morning. Do not start before September 14, 2022. 30 Tablet 0 09/14/2022 10/12/2022 Discontinued (Medication/ Dose Changed) documented as of this encounter (statuses as of 10/12/2022) Active Problems Problem Noted Date Type 2 [...] as of this encounter (statuses as of 10/12/2022) Resolved Problems Problem Noted Date Resolved Date [...] as of this encounter (statuses as of 10/12/2022) Immunizations Name Administration Dates Next Due DTaP [...] Sign Reading Time Taken Comments Blood Pressure 126/6 10/12/2022 11:02 AM EDT Pulse 69 10/12/2022 11:02 AM EDT Temperature 36.5 C (97.7 F) 10/12/2022 1 1:02 AM EDT Respiratory Rate 16 10/12/2022 11:0 2 AM EDT Oxygen Saturation 98% 10/12/2022 11: 02 AM EDT Inhaled Oxygen Concentration - - Weight 98.7 kg (217 lb 11.2 oz) 023 11:02 AM EDT Height - - Body Mass Index 35.14 09/16/2022 4:05 AM EDT documented in this [...] No 09/16/2022 documented as of this encounter Patient Instructions * Patient Instructions* Elías Jade MD - 10/12/2022 11:19 AM EDT CHF: Importance of Daily weights: Please get a scale to weight yourself each morning. You should wake up, put on your compression stockings, use the bathroom, then weight yourself before eating or drinking anything. If you notice that your weight is up 3lbs from the prior day, please take an extra dose of your water pill (lasix 20mg) in the afternoon around 2:00. documented in this encounter Progress Notes * Elías Jade MD - 10/12/2022 11:07 AM EDT Images from the original note were not included. History of Present Illness Sahra Rodríguez is a 77 year old female that presents for Hospital Follow-Up ([facility] [place] hospital discharge 09/15-09/16 and also [facility] 09/18-09/22. Patient states she was told at 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 She wants to discuss her medications.) Did have cath at [facility], showing epicardial CAD, echo with EF 30-35%. Reduced renal function, and planned to see her steam conditioner operator on discharge, Dr. Gardner, who she saw on 09/29. Started farxiga, did not switch to entresto. Does still feel occasional pressure in her chest. Taking omeprazole helps. Also on pepcid. Feeling very overwhelmed with deaths in family and family stressors. Would like something for nerves. Physical Exam Vitals: 10/12/22 1102 Temp: 36.5 C (97.7 F) Pulse: 69 Resp: 16 SpO2: 98% BP: 126/6 Physical Exam Constitutional: Appearance: She is obese. HENT: Head: Normocephalic and atraumatic. Cardiovascular: Rate and Rhythm: Normal rate and regular rhythm. Heart sounds: No murmur heard. Comments: Distant heart sounds Wearing Life Vest defibrillator Pulmonary: Effort: No respiratory distress. Breath sounds: No stridor. No wheezing or rales. Abdominal: General: There is no distension. Comments: Central adiposity Musculoskeletal: Right lower leg: No edema. Left lower leg: No edema. Comments: Thin arms and legs I have reviewed the following results: [facility] [place] and [facility] records, cath report, bmp, cbc, a1c Assessment and Plan Encounter for examination following treatment at hospital Left heart failure (HCC) Chest pain still intermittent, improves with omeprazole, likely GERD. Continue pepcid and prn omeprazole which has helped. Reduce lasix to 20mg, with weight based prn second dose. - Furosemide 20 MG Oral Tablet (Lasix); Take 1 Tablet by mouth in the morning. Take second dose 6 hours later for 3lb weight gain overnight.. Type 2 diabetes mellitus with stage 3a chronic kidney disease, without long-term current use of insulin (HCC) Controlled, fasxiga recently added. Reduce metformin to 1000mg daily if GFR remains <45. - BASIC METABOLIC PANEL; Future Severe obesity with body mass index (BMI) of 35.0 to 39.9 with serious comorbidity (HCC) Losing weight due to less appetite. Discussed ongoing weight loss. Secondary hyperparathyroidism, non-renal (HCC) Elevated last year; recheck today. Consider referral if needed. ADRIANA (generalized anxiety disorder) Discussed 3-pronged approach of depression and anxiety being medication, counseling and exercise. Open to medication at this time. - Escitalopram Oxalate 10 MG Oral Tablet (Lexapro); Take 1 Tablet by mouth in the morning. Need for hepatitis C screening test Open to routine screening - HEPATITIS C ANTIBODY SCREEN WITH PROGRESSION TO HEPATITIS C RNA QUANTITATIVE; Future Wrap-Up Check-out note: Check in for labs today Move October appt to January Time: I spent a total of 30-39 minutes (exact time 38 mins) on the date of service in preparation, delivery, and documentation of the care provided to Sahra Rodríguez excluding any time spent in the performance of separately billed services. documented in this encounter Plan of Treatment Upcoming Encounters Date Type Specialty Care Team Description 01/09/2023 Office Visit Family Medicine Mahogany Moncada CRNP 21 [facility] [place] [id number] Pending Results Name Type Priority Associated Diagnoses Date /Time BASIC METABOLIC PANEL Lab Routine Type 2 diabetes mellitus with stage 3a chronic kidney disease, without long-term current use of insulin (HCC) 10/12/2022 11:42 AM EDT HEPATITIS C ANTIBODY SCREEN WITH PROGRESSION TO HEPATITIS C RNA QUANTITATIVE Lab Routine Need for hepatitis C screening test 10/12/2022 11:42 AM EDT Scheduled Orders Name Type Priority Associated Diagnoses Orde r Schedule BASIC METABOLIC PANEL Lab Routine Type 2 diabetes mellitus with stage 3a chronic kidney disease, without long-term current use of insulin (HCC) Expected: 10/12/2022 (Approximate), Expires: 10/12/2023 HEPATITIS C ANTIBODY SCREEN WITH PROGRESSION TO HEPATITIS C RNA QUANTITATIVE Lab Routine Need for hepatitis C screening test Expected: 10/12/2022 (Approximate), Expires: 11/12/2023 PTH Lab Routine Secondary hyperparathyroidism, non-renal (HCC) Expected: 10/12/2022 (Approximate), Expires: 10/12/2023 Health Maintenance Due Date Last Done Comments COVID-19 Vaccine (#1) 1944 Hepatitis C Screening 1962 Zoster Vaccines (1 of 2) 1994 Albumin/Creatinine Ratio 04/01/2022 021, 07/16/2020, 06/06/2019 DIABETES-EYE EXAM 10/18/2022 10/18/2021, , 06/30/2019 DIABETES-FOOT EXAM 10/21/2022 10/21/2021, 0 07/16/2020, 07/15/2019 Depression Screening, Annual for Pts 12 and Over 10/21/2022 10/21/2021 Influenza Vaccine (FLU shot) (Season Ended) 2022 07/15/2019, 02/22/2016, 03/08/2015 HbA1c 03/15/2023 09/13/2022, 07/0 11/2021, 02/28/2021, Additional history exists GFR 03/17/2023 09/15/2022, 08/16, 09/12/2022, Additional history exists CKD PHOS USE SMARTSET 16062 09/14/202308/16, 03/19/2022, 10/21/2021 CKD HGB USE SMARTSET 63027 09/16/202309/15, 09/15/2022, 09/13/2022, Additional history exists DXA Scan 03/11/2026 03/11/2019 DTaP,Tdap,and Td Vaccines (3 - Td or Tdap) 03/09/2027 03/09/2017, 03/24/2009 Pneumococcal Vaccine: 65+ Years Completed 05/27/2019, 03/08/2015, 06/30/2014 GARDASIL-HPV IMMUNIZATION SERIES Aged Out No longer [...] as of this encounter Visit Diagnoses Diagnosis Encounter for examination following treatment at hospital- Primary Left heart failure (HCC) Left heart failure Type 2 diabetes mellitus with stage 3a chronic kidney disease, without long-term current use of insulin (HCC) Severe obesity with body mass index (BMI) of 35.0 to 39.9 with serious comorbidity (HCC) Secondary hyperparathyroidism, non-renal (HCC) Secondary hyperparathyroidism, non-renal ADRIANA (generalized anxiety disorder) Generalized anxiety disorder Need for hepatitis C screening test Special screening examination for other specified viral diseases documented in this encounter Advance Directives Latest [...] the patient have Health Care Power of Anthropology And Archeology Instructor? No Full Code 02/28/2021 8:35 AM 03/01/2021 8:18 PM Thi s order reflects the patients wishes and were consensually agreed upon. Question Answer Comments Discussion of Advance Directives occurred with: Patient Full Code 10/06/2020 12:41 AM 10/06/2020 9:21 PM This order reflects the patients wishes and were consensually agreed upon. Question Answer Comments Discussion of Advance Directives occurred with: Patient Care Teams M48/M60 Tank Driver Relationship Specialty Start Date End Date Elías Jade MD [address] [place] [id number] PCP - General Family Medicine 06/01/21 documented as of this encounter
--- OUTSIDE RECORDS SUMMARY | 2022-12-17 03:22 | External Medical Summary ---
Author Name Unknown Address Unknown Organization K01:[facility] [place] [address] [facility] [address] Laboratory Report Ordering Provider Test Date Status OFELIA GONSALEZ 10/12/2022 11:42:10 Final Observation Date Value Abnormality Reference (Units ) Status Hep C Ab 10/12/2022 11:42:10 Negative Negative Final Performing Location [facility] [place] - [address] [facility] [address]
--- OUTSIDE RECORDS SUMMARY | 2022-12-17 03:22 | External Medical Summary ---
Author Name Unknown Address Unknown Organization K01:[facility] [place] - [address] [address] Laboratory Report Ordering Provider Test Date Status OFELIA GONSALEZ 10/12/2022 11:42:10 Final Observation Date Value Abnormality Reference (Units ) Status Parathyrin.intact [Mass/volume] in Serum or Plasma 10/12/2022 11:42:10 223 Above high normal 15-65 (pg/mL) Final Performing Location [facility] [place] - [address] [place] [address]
--- OUTSIDE RECORDS SUMMARY | 2022-12-17 03:22 | External Medical Summary ---
Author Name Unknown Address Unknown Organization K01:[facility] [place] [address] [place] [address] Laboratory Report Ordering Provider Test Date Status OFELIA GONSALEZ 10/20/2022 08:11:34 Final Observation Date Value Abnormality Reference (Units ) Status Calcium.ionized [Moles/volume] in Serum or Plasma by Ion-selective membrane electrode (ISE) 10/20/2022 08:11:34 1.36 Above high normal 1.13-1.32 (mmol/L) Final Performing Location [facility] [place] [address] [place] [address]
--- OUTSIDE RECORDS SUMMARY | 2022-12-17 03:22 | External Medical Summary | Summary of Care ---
Author Name Unknown Organization [facility] Address [address] [place] [address] Phone [phone] Care Team Providers Care Food And Beverage Order Clerk Name Role Phone Eílas Jade MD Primary Care Provider [phone] Reason for Visit * Reason Onset Date Comments Test Results 10/13/202210/13 Encounter Details Date Type Department Care Team Description 10/13/2022 Telephone [facility] [address] [place] [address] Elías Jade MD [address] [place] [place], [place] [phone] Test Results (10/13) Allergies Active Allergy Reactions [...] HFA 108 (90 Base) MCG/ACT Inhalation Aerosol SolutionIndications :Shortness of breath Inhale 2 Puffs by mouth every 4 hours as needed for Wheezing. 8 g 2 04/01/2022 Active Atorvastatin Calcium 80 MG Oral Tablet (Lipitor)Indication s:Dyslipidemia, goal LDL below 100 TAKE 1 TABLET BEFORE BEDTIME 90 Tablet 3 03/28/2022 Active busPIRone HCl 10 MG Oral Tablet (Buspar)Indications :ADRIANA (generalized anxiety disorder) TAKE 1 TABLET THREE [...] 09/25/2022 Active Furosemide 20 MG Oral Tablet (Lasix)Indications: Left heart failure (HCC) Take 1 Tablet by mouth in the morning. Take second dose 6 hours later for 3lb weight gain overnight.. 45 Tablet 11 10/12/2022 Active Escitalopram Oxalate 10 MG Oral Tablet (Lexapro)Indication s:ADRIANA (generalized anxiety disorder) Take 1 Tablet by mouth in the morning. 90 Tablet 3 10/12/2022 Active Metoprolol Succinate ER 50 MG Oral Tablet Extended Release 24 Hour (toPROL XL) Take 1 Tablet by mouth in the morning. 30 Tablet 0 09/13/2022 10/13/2022 documented as of this encounter (statuses as [...] encounter Miscellaneous Notes * Telephone Encounter - Ashlie Macias LPN [...] Medicine Mahogany Moncada CRNP [address] [place] [place] [id number] Scheduled Orders Name Type Priority Associated Diagnoses Orde r Schedule CALCIUM, IONIZED Lab Routine Hyperparathyroidism, primary (HCC) Expected: 10/13/2022 (Approximate), Expires: 10/13/2023 Health Maintenance Due Date Last Done Comments [...] Additional history exists CKD PHOS USE SMARTSET 00321 09/14/2023 05/3 04/2022, 03/19/2022, 10/21/2021 CKD HGB USE SMARTSET 48213 09/16/202309/15, 09/15/2022, 09/13/2022, Additional history exists Depression [...] as of this encounter Visit Diagnoses Diagnosis Hyperparathyroidism, primary [...] the patient have Health Care Power of Process Design Chemical Engineer? No Full Code 02/28/2021 8:35 AM 03/01/2021 8:18 PM Thi s order reflects the patients wishes and were consensually agreed upon. Question Answer Comments Discussion of Advance Directives occurred with: Patient Full Code 10/06/2020 12:41 AM 10/06/2020 9:21 PM This order reflects the patients wishes and were consensually agreed upon. Question Answer Comments Discussion of Advance Directives occurred with: Patient Care Teams Food And Beverage Order Clerk Relationship Specialty Start Date End Date Elías Jade MD [address] [place] [address] PCP - General Family Medicine 06/01/21 documented as of this encounter
--- OUTSIDE RECORDS SUMMARY | 2022-12-17 03:22 | External Medical Summary | Summary of Care ---
Author Name Unknown Organization [facility] Address [address] [place] [address] Phone [phone] Care Team Providers Care Hat Trimmer Name Role Phone Elías Jade MD Primary Care Provider [phone] Reason for Visit * Reason Comments Hospital Follow-Up [facility] hospital dischar 09/15-09/16 and also [facility] 09/18- 09/22. 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 She wants to discuss her medications. Encounter Details Date Type Department Care Team Description 10/12/2022 Office Visit Thee Pathak 21 [facility] [place] [address] Elías Jade MD 21 [facility] [place] [id number] Encounter for examination following treatment at hospital*; [...] Sign Reading Time Taken Comments Blood Pressure 126/62 10/12/2022 11:02 AM EDT Pulse 69 10/12/2022 [...] old female that presents for Hospital Follow-Up ([facility] hospital discharge 09/15-09/16 and also [facility] 09/18-09/22. 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 She wants to discuss her medications.) Did have cath at [facility], showing epicardial CAD, echo with EF 30-35%. Reduced renal function, and planned to see her heel shaper on discharge, Dr. Gardner, who she saw [...] legs I have reviewed the following results: [facility] and [facility] records, cath report, bmp, cbc, a1c Assessment [...] Visit Family Medicine Mahogany Moncada CRNP 21 [facility] [place] [phone] Pending Results Name Type Priority Associated Diagnoses Date /Time BASIC METABOLIC PANEL Lab Routine Type 2 diabetes mellitus with stage 3a chronic kidney disease, without long-term current use of insulin (HCC) 10/12/2022 11:42 AM EDT HEPATITIS C ANTIBODY SCREEN WITH PROGRESSION TO HEPATITIS C RNA QUANTITATIVE Lab Routine Need for hepatitis C screening test 10/12/2022 11:42 AM EDT PTH Lab Routine Secondary hyperparathyroidism, non-renal (HCC) 10/12/2022 11:42 AM EDT Scheduled Orders Name [...] 0 07/16/2020, 07/15/2019 Influenza Vaccine (FLU shot) (Season Ended) 2022 07/15/2019, 02/22/2016, 03/08/2015 HbA1c 03/15/2023 09/13/2022, 07/0 11/2021, 02/28/2021, Additional history exists GFR 03/17/2023 09/15/2022, 08/16, 09/12/2022, Additional history exists CKD PHOS USE SMARTSET 16233 09/14/202308/16, 03/19/2022, 10/21/2021 CKD HGB USE SMARTSET 81324 09/16/202309/15, 09/15/2022, 09/13/2022, Additional history exists Depression [...] the patient have Health Care Power of Welding Pantograph Operator? No Full Code 02/28/2021 8:35 AM 03/01/2021 8:18 PM Thi s order reflects the patients wishes and were consensually agreed upon. Question Answer Comments Discussion of Advance Directives occurred with: Patient Full Code 10/06/2020 12:41 AM 10/06/2020 9:21 PM This order reflects the patients wishes and were consensually agreed upon. Question Answer Comments Discussion of Advance Directives occurred with: Patient Care Teams Hat Trimmer Relationship Specialty Start Date End Date Elías Jade MD [place] [phone] PCP - General Family Medicine 06/01/21 documented as of this encounter
--- OUTSIDE RECORDS SUMMARY | 2022-12-17 03:22 | External Medical Summary | Summary of Care ---
Author Name Unknown Organization [facility] Address [address] [place] [address] Phone [phone] Care Team Providers Care Medical Fee Clerk Name Role Phone Elías Jade MD Primary Care Provider [phone] Reason for Visit * Reason Onset Date Comments Test Results 10/13/202210/13 Encounter Details Date Type Department Care Team Description 10/13/2022 Telephone [facility] [address] [place] [address] Elías Jade MD [address] [place] [place], [place] [phone] Test Results (10/13) Allergies Active Allergy Reactions [...] Miscellaneous Notes * Telephone Encounter - MANDY Zavala - [...] Laboratory Laboratory [place] [address] [place] [address] 10/20/2022 Appointment Radiology 01/09/2023 Office Visit Family Medicine Mahogany Moncada CRNP [address] [place] [address] Scheduled Orders Name Type Priority Associated Diagnoses [...] Additional history exists CKD PHOS USE SMARTSET 61305 09/14/2023 05/3 04/2022, 03/19/2022, 10/21/2021 CKD HGB USE SMARTSET 51272 09/16/202309/15, 09/15/2022, 09/13/2022, Additional history exists Depression [...] the patient have Health Care Power of It Infrastructure Manager? No Full Code 02/28/2021 8:35 AM 03/01/2021 8:18 PM Thi s order reflects the patients wishes and were consensually agreed upon. Question Answer Comments Discussion of Advance Directives occurred with: Patient Full Code 10/06/2020 12:41 AM 10/06/2020 9:21 PM This order reflects the patients wishes and were consensually agreed upon. Question Answer Comments Discussion of Advance Directives occurred with: Patient Care Teams Medical Fee Clerk Relationship Specialty Start Date End Date Elías Jade MD [facility] [place] [phone] PCP - General Family Medicine 06/01/21 documented as of this encounter
--- OUTSIDE RECORDS SUMMARY | 2022-12-17 03:22 | External Medical Summary | Summary of Care ---
Author Name Unknown Organization [facility] Address [address] [place] [address] Phone [phone] Care Team Providers Care Fire Patroller Name Role Phone Elías Gilbert MD Primary Care Provider [phone] Reason for Referral * Evaluate & Treat - Unlimited Visits (Within 10 days (routine)) - Pending Review Specialty Diagnoses / Procedures Referred By Olivia torrez Referred To Contact Nephrology Diagnoses Kidney disease, chronic, stage IV (GFR 15-29 ml/min) ([facility]) Elías Gilbert MD [address] [place] [address] Referral ID Status Reason Start Date Expiration Date Visits Requested Visits Authorized [id number] Pending Review Specialty Services Required 10/13/[phone] Question Answer Referral Priority Within 10 days (routine) What condition is this patient being seen for? Acute kidney injury Reason for Visit * Reason Comments Outpatient Testing Encounter Details Date Type Department Care Team Description 10/12/2022 Laboratory Laboratory, [address] [id number] [place], Lab [address] [place] [address] Kidney disease, chronic, stage IV (GFR 15-29 ml/min) ([facility])*; Type 2 diabetes mellitus with stage 3a chronic kidney disease, without long-term current use of insulin (HCC); Need for hepatitis C screening test; Secondary hyperparathyroidism, non-renal (HCC) Allergies Active Allergy Reactions Severity Noted Date Comments Eggs Or Egg-Derived Products Diarrhea 021 documented as of this encounter (statuses as of 10/13/2022) Medications Medication Sig Dispensed Refills Start Date [...] the morning. 90 Tablet 3 10/12/2022 Active metFORMIN HCl 1000 MG Oral Tablet (Glucophage)Indic ations:Type 2 diabetes mellitus with stage 3a chronic kidney disease, without long-term current use of insulin (HCC) Take by mouth 1 Tablet 2 times a day with morning and evening meals . 180 Tablet 2 09/16/2021 10/13/2022 Discontinued (Medication/ Dose Changed) documented as of this encounter (statuses as of 10/13/2022) Active Problems Problem Noted Date Type 2 [...] as of this encounter (statuses as of 10/13/2022) Resolved Problems Problem Noted Date Resolved Date [...] as of this encounter (statuses as of 10/13/2022) Immunizations Name Administration Dates Next Due DTaP [...] as of this encounter Progress Notes * Elías Gilbert MD - 10/13/2022 8:08 AM EDT Please call pt to advise that her kidney function has significantly decreased. Needs to stop metformin entirely and stop her lasix (water pill) and only take as needed 20mg for noted swelling. This could be due to over-diuresis. Will get renal ultrasound , recheck labs and urine in one week off diuretics, and refer to nephrology. Elías Gilbert MD, PAULA Family Physician João [place] documented in this encounter Miscellaneous Notes * Addendum Note - Elías Gilbert MD - 10/13/2022 8:12 AM EDTAddended by: ELÍAS GILBERT on: 10/13/2022 08:12 AM Modules accepted: Orders documented in this encounter Plan of Treatment Upcoming Encounters Date Type Specialty Care Team Description 01/09/2023 Office Visit Family [facility] [id number] Scheduled Orders Name Type Priority Associated Diagnoses Orde r Schedule US RENAL Medical Imaging Routine Kidney disease, chronic, stage IV (GFR 15-29 ml/min) ([facility]) Expected: 10/19/2022, Expires: 11/13/2023 RENAL FUNCTION PANEL Lab Routine Kidney disease, chronic, stage IV (GFR 15-29 ml/min) ([facility]) Expected: 10/13/2022, Expires: 10/14/2023 URINALYSIS, REFLEX TO MICROSCOPIC Lab Routine Kidney disease, chronic, stage IV (GFR 15-29 ml/min) ([facility]) Expected: 10/13/2022, Expires: 10/14/2023 ALBUMIN / CREATININE RATIO, URINE Lab Routine Kidney disease, chronic, stage IV (GFR 15-29 ml/min) ([facility]) Expected: 10/13/2022, Expires: 10/14/2023 Scheduled Referrals Name Type Priority Associated Diagnoses Orde r Schedule NEPHROLOGY REFERRAL OP Referral Within 10 days (routine) Kidney disease, chronic, stage IV (GFR 15-29 ml/min) ([facility]) Ordered: 10/13/2022 Health Maintenance Due Date Last Done Comments COVID-19 Vaccine (#1) 1945 Zoster Vaccines (1 of 2) 1994 Albumin/Creatinine Ratio 04/01/2022 021, 07/16/2020, 06/06/2019 DIABETES-EYE EXAM 10/18/2022 10/18/2021, , 06/30/2019 DIABETES-FOOT EXAM 10/21/2022 10/21/2021, 0 07/16/2020, 07/15/2019 Influenza Vaccine (FLU shot) (Season Ended) 2022 07/15/2019, 02/22/2016, 03/08/2015 HbA1c 03/15/2023 09/13/2022, 07/0 11/2021, 02/28/2021, Additional history exists GFR 04/13/2023 10/12/2022, 060 05/2022, 09/13/2022, Additional history exists CKD PHOS USE SMARTSET 86556 09/14/202308/16, 03/19/2022, 10/21/2021 CKD HGB USE SMARTSET 14450 09/16/202309/15, 09/15/2022, 09/13/2022, Additional history exists Depression [...] Procedure Name Priority Date/Time Associated Diagnosis Comments HEPATITIS C RNA ADD ON Routine 10/12/2022 11:42 AM EDT Need for hepatitis C screening test HEPATITIS C ANTIBODY SCREEN WITH PROGRESSION TO HEPATITIS C RNA QUANTITATIVE Routine 10/12/2022 11:42 AM EDT Need for hepatitis C screening test BASIC METABOLIC PANEL Routine 10/12/2022 11:42 AM EDT Type 2 diabetes mellitus with stage 3a chronic kidney disease, without long-term current use of insulin (HCC) HEPATITIS C ANTIBODY Routine 10/12/2022 11:42 AM EDT Need for hepatitis C screening test PTH Routine 10/12/2022 11:42 AM EDT Secondary hyperparathyroidism , non-renal (HCC) documented in this encounter Results * (ABNORMAL) PTH (10/12/2022 11:42 AM EDT) [facility] PTH 223(H) 15 - 65 pg/mL 10/12/2022 10:58 PM EDT LABORATORY [facility] Blood Venous blood specimen / Unknown Venipuncture / Unknown 10/12/2022 11:42 AM EDT 10/12/2022 11:42 AM EDT Elías Gilbert MD LAB BLOOD ORDERAB LES LABORATORY [facility] [address] [place] [address] * HEPATITIS C RNA ADD ON (10/12/2022 11:42 AM EDT) Blood Venous blood specimen / Unknown Venipuncture / Unknown 10/12/2022 11:42 AM EDT 10/12/2022 11:42 AM EDT Elías Gilbert MD LAB BLOOD ORDERAB LES Performing Organization Address City/[facility] Co de Phone Number LABORATORY [facility] [address] [place] [address] * HEPATITIS C ANTIBODY (10/12/2022 11:42 AM EDT) [facility] Hepatitis C Antibody Negative Negative 10/12/2022 10:30 PM EDT LABORATORY [facility] Comment:Further HCV quantita tive testing not performed per protocol. Blood Venous blood specimen / Unknown Venipuncture / Unknown 10/12/2022 11:42 AM EDT 10/12/2022 11:42 AM EDT Elías Gilbert MD LAB BLOOD ORDERAB LES Performing Organization Address City/[facility] de Phone Number LABORATORY [facility] [address] [place] [address] * (ABNORMAL) BASIC METABOLIC PANEL (10/12/2022 11:42 AM EDT) [facility] BUN 42(H) 6 - 20 mg/dL 10/12/2022 10:21 PM EDT LABORATORY [facility] Creatinine 2.6(H) 0.5 - 1.0 mg/dL 10/12/2022 10:21 PM EDT LAB[facility]ORY [facility] Estimated Glomerular Filtration Rate 18(L) >=60 mL/min 10/12/2022 10:21 PM EDT [facility] Comment:eGFR is calculated b ased on the CKD-EPI 2020 equation Sodium 139 135 - 146 mmol/L 10/12/2022 10:21 PM EDT [facility] Potassium 5.1 3.5 - 5.1 mmol/L 10/12/2022 10:21 PM EDT [facility] Chloride 98 98 - 107 mmol/L 10/12/2022 10:21 PM EDT [facility] CO2 24 22 - 32 mmol/L 10/12/2022 10:21 PM EDT [facility] Anion Gap 17(H) 7 - 15 mmol/L 10/12/2022 10:21 PM EDT [facility] Glucose 112 70 - 120 mg/dL 10/12/2022 10:21 PM EDT [facility] Calcium 10.8(H) 8.4 - 10.2 mg/dL 10/12/2022 10:21 PM EDT [facility] Blood Venous blood specimen / Unknown Venipuncture / Unknown 10/12/2022 11:42 AM EDT 10/12/2022 11:42 AM EDT Elías Gilbert MD LAB BLOOD ORDERAB LES LABORATORY [facility] [address] [place] [address] documented in this encounter Visit Diagnoses Diagnosis Kidney disease, chronic, stage IV (GFR 15-29 ml/min) (HCC)- Primary Chronic kidney disease, Stage IV (severe) Type 2 diabetes mellitus with stage 3a chronic kidney disease, without long-term current use of insulin (HCC) Need for hepatitis C screening test Special screening examination for other specified viral diseases Secondary hyperparathyroidism, non-renal (HCC) Secondary hyperparathyroidism, non-renal documented in this encounter Advance Directives Latest [...] the patient have Health Care Power of Silverware Cleaner? No Full Code 02/28/2021 8:35 AM 03/01/2021 8:18 PM Thi s order reflects the patients wishes and were consensually agreed upon. Question Answer Comments Discussion of Advance Directives occurred with: Patient Full Code 10/06/2020 12:41 AM 10/06/2020 9:21 PM This order reflects the patients wishes and were consensually agreed upon. Question Answer Comments Discussion of Advance Directives occurred with: Patient Care Teams Fire Patroller Relationship Specialty Start Date End Date Elías Gilbert MD [place] [id number] PCP - General Family Medicine 06/01/21 documented as of this encounter
--- OUTSIDE RECORDS SUMMARY | 2022-12-17 03:22 | External Medical Summary | Summary of Care ---
Author Name Unknown Organization [facility] Address [address] [place] [address] Phone [phone] Care Team Providers Care Educational Resource Center Teacher Name Role Phone Elías Jade MD Primary Care Provider [phone] Reason for Visit * Reason Onset Date Comments Test Results 10/13/202210/13 Encounter Details Date Type Department Care Team Description 10/13/2022 Telephone [facility] [address] [place] [address] Elías Jade MD [address] [email or web address], [place] [id number] Test Results (10/13) Allergies Active Allergy Reactions [...] Visit Family Medicine Mahogany Moncada CRNP [address] [facility] [place] [address] Scheduled Orders Name Type Priority Associated Diagnoses [...] Additional history exists CKD PHOS USE SMARTSET 48161 09/14/202308/16, 03/19/2022, 10/21/2021 CKD HGB USE SMARTSET 12184 09/16/202309/15, 09/15/2022, 09/13/2022, Additional history exists Depression [...] the patient have Health Care Power of Labview Programmer? No Full Code 02/28/2021 8:35 AM 03/01/2021 8:18 PM Thi s order reflects the patients wishes and were consensually agreed upon. Question Answer Comments Discussion of Advance Directives occurred with: Patient Full Code 10/06/2020 12:41 AM 10/06/2020 9:21 PM This order reflects the patients wishes and were consensually agreed upon. Question Answer Comments Discussion of Advance Directives occurred with: Patient Care Teams Educational Resource Center Teacher Relationship Specialty Start Date End Date Elías Jade MD [facility] [place] [address] PCP - General Family Medicine 06/01/21 documented as of this encounter
--- OUTSIDE RECORDS SUMMARY | 2022-12-17 03:22 | External Medical Summary | Summary of Care ---
Author Name Unknown Organization [facility] Address [address] [place] [address] Phone [phone] Care Team Providers Care Chainstitch Pants Outseamer Name Role Phone Elías Jade MD Primary Care Provider [phone] Encounter Details Date Type Department Care Team Description 10/13/2022 Telephone [facility] [place] [address] Elías Jade MD [address] [place] [address] Allergies Active Allergy Reactions Severity [...] Mahogany Moncada CRNP [address] [place] [address] Scheduled Orders Name Type Priority Associated [...] Additional history exists CKD PHOS USE SMARTSET 91104 09/14/2023 05/3 04/2022, 03/19/2022, 10/21/2021 CKD HGB USE SMARTSET 28719 09/16/202309/15, 09/15/2022, 09/13/2022, Additional history exists Depression [...] the patient have Health Care Power of Public Service Officer? No Full Code 02/28/2021 8:35 AM 03/01/2021 8:18 PM Thi s order reflects the patients wishes and were consensually agreed upon. Question Answer Comments Discussion of Advance Directives occurred with: Patient Full Code 10/06/2020 12:41 AM 10/06/2020 9:21 PM This order reflects the patients wishes and were consensually agreed upon. Question Answer Comments Discussion of Advance Directives occurred with: Patient Care Teams Chainstitch Pants Outseamer Relationship Specialty Start Date End Date Elías Jade MD [place] [address] PCP - General Family Medicine 06/01/21 documented as of this encounter
--- OUTSIDE RECORDS SUMMARY | 2022-12-17 03:22 | External Medical Summary ---
Author Name Unknown Address Unknown Organization [id number]:LABORATORY [facility] - [address] [place] [address] Laboratory Report Ordering Provider Test Date Status OFELIA GONSALEZ 10/20/2022 08:11:34 Final Observation Date Value Abnormality Reference (Units ) Status BUN 10/20/2022 08:11:34 24 Above high normal 6-20 (mg/dL) Final Creatinine 10/20/2022 08:11:34 2.1 Above high normal 0.5-1.0 (mg/dL) Final Glomerular filtration rate/1.73 sq M.predicted [Volume Rate/Area] in Serum, Plasma or Blood by Creatinine-based formula (CKD-EPI) 10/20/2022 08:11:34 24 Below low normal >=60 (mL/min) Final Performing Location LABORATORY [facility] - [address] [place] [address]
--- OUTSIDE RECORDS SUMMARY | 2022-12-17 03:22 | External Medical Summary | Summary of Care ---
Author Name Unknown Organization [facility] Address [address] [place] [address] Phone [phone] Care Team Providers Care Driveway Attendant Name Role Phone Elías Jade MD Primary Care Provider [phone] Reason for Visit * Reason Comments Outpatient Testing Encounter Details Date Type Department Care Team Description 10/12/2022 Laboratory Laboratory, [place] [address] [place] [address] [facility] [address] [place] [address] Type 2 diabetes mellitus with stage 3a chronic kidney disease, without long-term current use of insulin (HCC); Need for hepatitis C screening test Allergies [...] Active metFORMIN HCl 1000 MG Oral Tablet (Glucophage)Indicat ions:Type 2 diabetes mellitus with stage 3a chronic [...] shopping? (15 years old or older) No 06/03/20 23 Cognitive Status Response Date of Assessm ent Because of a physical, menta l, or emotional condition, do you have serious difficulty concentrating, remembering, or making decisions? (5 years old or older No 09/16/2022 documented as of this encounter Plan of Treatment Upcoming Encounters Date Type Specialty Care Team Description 01/09/2023 Office Visit Family Medicine Mahogany Moncada CRNP [address] [place] [id number] Pending Results Name Type Priority Associated Diagnoses Date /Time BASIC METABOLIC PANEL Lab Routine Type 2 diabetes mellitus with stage 3a chronic kidney disease, without long-term current use of insulin (HCC) 10/12/2022 11:42 AM EDT HEPATITIS C ANTIBODY SCREEN WITH PROGRESSION TO HEPATITIS C RNA QUANTITATIVE Lab Routine Need for hepatitis C screening test 10/12/2022 11:42 AM EDT HEPATITIS C ANTIBODY Lab Routine Need for hepatitis C screening test 10/12/2022 11:42 AM EDT HEPATITIS C RNA ADD ON Lab Routine Need for hepatitis C screening test 10/12/2022 11:42 AM EDT Health Maintenance Due Date Last Done Comments COVID-19 Vaccine (#1) 1945 Hepatitis C Screening 1962 Zoster Vaccines (1 of 2) 1994 Albumin/Creatinine Ratio 04/01/20222 021, 07/16/2020, 06/06/2019 DIABETES-EYE EXAM 10/18/2022 10/18/2021, , 06/30/2019 DIABETES-FOOT EXAM 10/21/2022 10/21/2021, 0 07/16/2020, 07/15/2019 Depression Screening, Annual for Pts 12 and Over 10/21/2022 10/21/2021 Influenza Vaccine (FLU shot) (Season Ended) 2022 07/15/2019, 02/22/2016, 03/08/2015 HbA1c 03/15/2023 09/13/2022, 07/0 11/2021, 02/28/2021, Additional history exists GFR 03/17/2023 09/15/2022, 0504/2022, 09/12/2022, Additional history exists CKD PHOS USE SMARTSET 79003 09/14/2023 05/3 04/2022, 03/19/2022, 10/21/2021 CKD HGB USE SMARTSET 74900 09/16/202309/15, 09/15/2022, 09/13/2022, Additional history exists DXA [...] as of this encounter Visit Diagnoses Diagnosis Type 2 diabetes mellitus with stage 3a [...] the patient have Health Care Power of Conveyor Belt Repairer? No Full Code 02/28/2021 8:35 AM 03/01/2021 8:18 PM Thi s order reflects the patients wishes and were consensually agreed upon. Question Answer Comments Discussion of Advance Directives occurred with: Patient Full Code 10/06/2020 12:41 AM 10/06/2020 9:21 PM This order reflects the patients wishes and were consensually agreed upon. Question Answer Comments Discussion of Advance Directives occurred with: Patient Care Teams Driveway Attendant Relationship Specialty Start Date End Date Elías Jade MD [facility] [place] [phone] PCP - General Family Medicine 06/01/21 documented as of this encounter
--- OUTSIDE RECORDS SUMMARY | 2022-12-17 03:22 | External Medical Summary ---
Author Name Unknown Address Unknown Organization K01:LABORATORY [facility] - [address] [place] [address] Laboratory Report Ordering Provider Test Date Status SUNSHINEOFELIA 10/20/2022 08:07:46 Final Observation Date Value Abnormality Reference (Units) Status Albumin, Urine 10/20/2022 08:07:46 <1.20 (mg/dL) Final Creatinine, Urine 10/20/2022 08:07:46 34 (mg/dL) Final ALBUMIN/CREATININE RATIO, HIDE 10/20/2022 08:07:46 Uninterpretable Albumin/Creatinine ratio due to very low albumin and creatinine values. <30 (mg/g Creat) Final Performing Location LABORATORY C - [address] [place] [address]
--- OUTSIDE RECORDS SUMMARY | 2022-12-17 03:22 | External Medical Summary | Summary of Care ---
Author Name Unknown Organization [facility] Address [address] [place] [address] Phone [phone] Care Team Providers Care Chief Investigator Name Role Phone Elías Jade MD Primary Care Provider [phone] Reason for Visit * Reason Onset Date Comments Test Results 10/13/202210/13 Encounter Details Date Type Department Care Team Description 10/13/2022 Telephone [facility] [address] [email or web address] [address] Elías Jade MD [address] [email or web address], [place] [id number] Test Results (10/13) Allergies Active Allergy Reactions Severity Noted Date Comments Eggs Or Egg-Derived Products Diarrhea 021 documented as of this encounter (statuses as of 10/19/2022) Medications Medication Sig Dispensed Refills Start Date [...] as of this encounter (statuses as of 10/19/2022) Active Problems Problem Noted Date Type 2 [...] as of this encounter (statuses as of 10/19/2022) Resolved Problems Problem Noted Date Resolved Date [...] as of this encounter (statuses as of 10/19/2022) Immunizations Name Administration Dates Next Due DTaP [...] Laboratory Laboratory [facility] [place] [address] [place] [address] 10/20/2022 Appointment Radiology 01/09/2023 Office Visit Family Medicine [facility] [address] [facility] [place] [address] Scheduled Orders Name Type Priority Associated Diagnoses [...] Additional history exists CKD PHOS USE SMARTSET 92322 09/14/2023 05/3 04/2022, 03/19/2022, 10/21/2021 CKD HGB USE SMARTSET 54359 09/16/202309/15, 09/15/2022, 09/13/2022, Additional history exists Depression [...] the patient have Health Care Power of Animal Park Code Enforcement Officer? No Full Code 02/28/2021 8:35 AM 03/01/2021 8:18 PM Thi s order reflects the patients wishes and were consensually agreed upon. Question Answer Comments Discussion of Advance Directives occurred with: Patient Full Code 10/06/2020 12:41 AM 10/06/2020 9:21 PM This order reflects the patients wishes and were consensually agreed upon. Question Answer Comments Discussion of Advance Directives occurred with: Patient Care Teams Chief Investigator Relationship Specialty Start Date End Date Elías Jade MD [facility] [place] [phone] PCP - General Family Medicine 06/01/21 documented as of this encounter
--- OUTSIDE RECORDS SUMMARY | 2022-12-17 03:23 | External Medical Summary | Summary of Care ---
Author Name Unknown Organization [facility] Address [address] [place] [address] Phone [phone] Care Team Providers Care Mechanical Apprentice Name Role Phone Elías Jade MD Primary Care Provider [phone] Reason for Visit * Reason Onset Date Comments Med Request 09/14/202209/14 NA, No VM Encounter Details Date Type Department Care Team Description 09/14/2022 Telephone [facility] [address] [facility] [place] [address] Elías Jade MD [address] [place], [place] [id number] Med Request (09/14 NA, No VM) Allergies Active Allergy Reactions Severity Noted Date Comments Eggs Or Egg-Derived Products Diarrhea 021 documented as of this encounter (statuses as of 09/14/2022) Medications Medication Sig Dispensed Refills Start Date End Date Status aspirin enteric coated 81 MG TBEC Take 1 Tablet by mouth in the morning. 0 Active omeprazole (PRILOSEC) 20 MG CPDR Take 1 Capsule by mouth in the morning. 0 Active Escitalopram Oxalate 10 MG Oral Tablet (Lexapro)Indicatio ns:ADRIANA (generalized anxiety disorder) Take 1 Tablet by mouth daily. 90 Tablet 1 03/07/2021 Active metFORMIN HCl 1000 MG Oral Tablet (Glucophage)Indica tions:Type 2 diabetes mellitus with stage 3a chronic kidney disease, without long-term current use of insulin (HCC) Take by mouth 1 Tablet 2 times a day with morning and evening meals . 180 Tablet 2 09/16/2021 Active Meclizine HCl 25 MG Oral Tablet (Antivert)Indicati ons:Dizziness TAKE 1 TABLET NEEDED IN THE MORNING AND 1 TABLET NEEDED AT NOON AND 1 TABLET NEEDED IN THE EVENING FOR DIZZINESS 30 Tablet 1 10/31/2021 Active Benzonatate 100 MG Oral Capsule (Tessalon Perles)Indications :Shortness of breath Take 1 Capsule by mouth 3 times a day as needed for Cough. Do not cut, crush, or chew. 50 Capsule 1 04/01/2022 Active ProAir HFA 108 (90 Base) MCG/ACT Inhalation Aerosol SolutionIndication s:Shortness of breath Inhale 2 Puffs by mouth every 4 hours as needed for Wheezing. 8 g 2 04/01/2022 Active Atorvastatin Calcium 80 MG Oral Tablet (Lipitor)Indicatio ns:Dyslipidemia, goal LDL below 100 TAKE 1 TABLET BEFORE BEDTIME 90 Tablet 3 03/28/2022 Active busPIRone HCl 10 MG Oral Tablet (Buspar)Indication s:ADRIANA (generalized anxiety disorder) TAKE 1 TABLET THREE TIMES DAILY NEEDED FOR ANXIETY 270 Tablet 3 08/08/2022 Active Furosemide 40 MG Oral Tablet (Lasix) Take 1 Tablet by mouth in the morning. Do not start before September 14, 2022. 30 Tablet 0 09/14/2022 10/14/2022 Active Lisinopril 20 MG Oral Tablet (Prinivil) Take 2 tablets by mouth every morning 60 Tablet 0 09/13/2022 Active Metoprolol Succinate ER 50 MG Oral Tablet Extended Release 24 Hour (toPROL XL) Take 1 Tablet by mouth in the morning. 30 Tablet 0 09/13/2022 10/13/2022 Active documented as of this encounter (statuses as of 09/14/2022) Active Problems Problem Noted Date Type 2 diabetes mellitus with stage 3b c hronic kidney disease 11/21/2021 Overview: Per CKD protocol Chronic kidney disease, stage 3b 022 Overview: Per CKD protocol Left heart failure 04/01/2021 Left bundle branch block (LBBB) 02/29/20 21 Uncontrolled hypertension 02/28/2021 MANDY (obstructive sleep apnea) 10/06/2020 Severe obesity with body mas s [...] as of this encounter (statuses as of 09/14/2022) Resolved Problems Problem Noted Date Resolved Date Acute chest pain 02/28/2021 09/13/2022 Heart failure with acute decompensation, type un known 02/28/2021 03/07/2021 Other chest pain 10/06/2020 10/06/2020 Type 2 diabetes mellitus wit h stage [...] as of this encounter (statuses as of 09/14/2022) Immunizations Name Administration Dates Next Due DTaP [...] you have serious difficulty h earing? No 09/13/2022 Are you blind or do you have serious difficulty seeing, even when wearing glasses? No 09/13/2022 Do you have serious difficul ty walking or climbing stairs? (5 years old or older) No 09/13/2022 Do you have difficulty dress ing or bathing? (5 years old or older) No 09/13/2022 Because of a physical, menta l, or emotional condition, do you have difficulty doing errands alone such as visiting a doctor s office or shopping? (15 years old or older) No 09/14/19 23 Cognitive Status Response Date of Assessm ent Because of a physical, menta l, or emotional condition, do you have serious difficulty concentrating, remembering, or making decisions? (5 years old or older No 09/13/2022 documented as of this encounter Miscellaneous Notes * Telephone Encounter - Barbara Westbrook LPN - 09/14/2022 4:38 PM EDT Call placed to number listed. No answer and no voice mail. * Telephone Encounter - Elías Jade MD - 09/14/2022 3:59 PM EDT Please have Sahra call her insurance number to explain situation to ask for override. Otherwise, she toscano ask for arellano chun to pay for quantity for 2 weeks to hold her over, which I suspect would be very inexpensive especially with GoodRx coupon. Thanks! Elías Jade MD, PAULA Family [facility] * Telephone Encounter - Yandy Jiang CPhT - 09/14/2022 3:30 PM EDT Patient calling to check on status of Rx override lisinopril. Thank you, Yandy Jiang Support Manager [facility] 09/14/2022, 3:30 PM * Telephone Encounter - YUAN Liu - 09/14/2022 12:35 PM EDT Pt called stating lisinopril was increased so pt threw away her other bottle because she was given a new script. Pt said pharmacy can not ene rx until 09/28. Advised pt to call insurance for an override. Thanks, Sheryl Clark Support Manager Pharmacy Refill Call Center 09/14/2022,12:36 PM * Telephone Encounter - YUAN Stallings - 09/14/2022 12:04 PM EDT Pt calling to request Lisinopril and metoprolol . Informed pt that RX is available at their pharmacy. Pt verbalized understanding and stated they will check with their pharmacy regarding this medication. Thanks, Tyrell Nixon, t Support Manager Pharmacy Refill Call Center 09/14/2022,12:05 PM documented in this encounter Plan of Treatment Upcoming Encounters Date Type Specialty Care Team Description 09/20/2022 Office Visit Family Medicine Cherelle Hinojosa CRNP [address] [address] 11/02/2022 Office Visit Family Medicine Mahogany Moncada CRNP [address] [address] Health Maintenance Due Date Last Done Comments COVID-19 Vaccine (#1) 1945 Hepatitis C Screening 1963 Zoster Vaccines (1 of 2) 1994 Albumin/Creatinine Ratio 04/01/2022 021, 07/16/2020, 06/06/2019 DIABETES-EYE EXAM 10/18/2022 10/18/2021, , 06/30/2019 DIABETES-FOOT EXAM 10/21/2022 10/21/2021, 0 07/16/2020, 07/15/2019 Depression Screening, Annual for Pts 12 and Over 10/21/2022 10/21/2021 Influenza Vaccine (FLU shot) (Season Ended) 2022 07/15/2019, 02/22/2016, 03/08/2015 GFR 03/15/2023 09/13/2022, 05/3 , 03/19/2022, Additional history exists HbA1c 03/15/2023 09/13/2022, 07/0 11/2021, 02/28/2021, Additional history exists CKD HGB USE SMARTSET 90178 09/14/202309/13, 09/12/2022, 09/12/2022, Additional history exists CKD PHOS USE SMARTSET 03028 09/14/2023 05/3 04/2022, 03/19/2022, 10/21/2021 DXA Scan 03/11/2026 03/11/2019 DTaP,Tdap,and Td Vaccines [...] Date Activated Date Inactivated Comments Full Code 03/19/2022 4:23 AM 03/20/2022 6:40 PM This order reflects the patients wishes and were consensually agreed upon. Question Answer Comments Discussion of Advance Directives occurred with: Patient Does the patient have a Living Will? No Does the patient have Health Care Power of Yarn Worker? No Full Code 02/28/2021 8:35 AM 03/01/2021 8:18 PM Thi s order reflects the patients wishes and were consensually agreed upon. Question Answer Comments Discussion of Advance Directives occurred with: Patient Full Code 10/06/2020 12:41 AM 10/06/2020 9:21 PM This order reflects the patients wishes and were consensually agreed upon. Question Answer Comments Discussion of Advance Directives occurred with: Patient Care Teams Mechanical Apprentice Relationship Specialty Start Date End Date Elías Jade MD [address] [address] PCP - General Family Medicine 06/01/21 documented as of this encounter
--- OUTSIDE RECORDS SUMMARY | 2022-12-17 03:23 | External Medical Summary | Summary of Care ---
Author Name Unknown Organization [facility] Address [address] [place] [address] Phone [phone] Care Team Providers Care Private Mortgage Banker Safe Name Role Phone Elías Jade MD Primary Care Provider [phone] Reason for Visit * Reason Onset Date Comments Hospital Follow-Up 09/14/2022 Encounter Details Date Type Department Care Team Description 09/14/2022 Telephone Ancillary 1st Floor, [facility] [address] [place] [address] Sharon Parsons RN Hospital Follow-Up Allergies Active Allergy Reactions Severity Noted Date [...] (15 years old or older) No 09/14/19 Cognitive Status Response Date of Assessm ent Because of a physical, menta l, or emotional condition, do you have serious difficulty concentrating, remembering, or making decisions? (5 years old or older No 09/13/2022 documented as of this encounter Miscellaneous Notes * Telephone Encounter - Sharon Parsons RN - 09/14/2022 2:10 PM EDT Transitions of Care Note Reason for Referral:Recent Admission Phone visit for follow up: Inpatient hospitalization Admitted to: [facility], Date: 09/12/22 Discharged to: home, Date: 09/13/22 Diagnosis driving hospitalization: acute chest pain Source/Contact: Patient SUBJECTIVE Consent: Verbal consent for review of hospital discharge: Yes REVIEW OF SYSTEMS Patient/Other Reports: Current patient/caregiver problems or concerns: patient states she is doing okay today. She did accidentally throw away her lisinopril and her daughter is picking it up today. CV: Denies problems Pulmonary: Denies problems Chills/Sweats/Fever:Denies chills/sweats Denies fever Appetite:Denies problems such as nausea, vomiting, burning, decreased appetite Current diet: heart healthy Bowel: denies problems Bladder: denies problems Wound (If applicable): N/A Pain:Denies Sleep:Denies problems FUNCTIONAL STATUS: ADL'S: Needs Assistance With:N/A as pt is independent IADL'S: Needs Assistance With:N/A as pt is independent Cognitive and Mental Health: denies problems, alert and oriented x 3 and able to communicate, understand instructions, process information. MEDICATION RECONCILIATION Medications: Patient states she does have all her meds except the lisinopril. She accidentally threw it away and her daughter is picking it up for her today. ASSESSMENT Medication Risk Assessment: No risks identified Did patient fail outpatient treatment? No Discharge instructions available for review? Yes PLAN Symptom Monitoring Interventions:Member/caregiver education - signs and symptoms to contact PrimaryCare (DO NOT DELETE-Three san symptoms patient is to report to PCP) 1. Chest pain 2. Shortness of breath 3. Fever/chills Ammunition SupervisorBarbering Instructor of Care interventions/Action Plan: 5 - 7 day follow-up with PCP in place - Date: 09/20/22 Educated on role of NOREEN completed with patient/caregiver. Educated patient/caregiver on patient right to have input on NOREEN plan of care. Identified Care Gaps: Yes Care Gaps closed this call: Appointment made or confirmed and Medication adherence Re-evaluation of Plan of Care and progress towards goals achievement: Patient education this visit: Verbal, see above Plan to instructed to call Primary Care Provider with change in symptoms or as needed before next follow-up, discharge needs met, verbalizes understanding and agrees with plan. Sharon Parsons, RN documented in this encounter Plan of Treatment Upcoming Encounters Date Type Specialty Care Team Description 09/20/2022 Office Visit Family Medicine Cherelle Hinojosa CRNP [address] [id number] 11/02/2022 Office Visit Family Medicine Mahogany Moncada CRNP [address] [address] Health Maintenance Due Date Last Done Comments COVID-19 Vaccine (#1) 1945 Hepatitis C Screening 1962 Zoster Vaccines (1 of 2) 1994 Albumin/Creatinine Ratio 04/01/2022 021, 07/16/2020, 06/06/2019 DIABETES-EYE EXAM 10/18/2022 10/18/2021, , 06/30/2019 DIABETES-FOOT EXAM 10/21/2022 10/21/2021, 0 07/16/2020, 07/15/2019 Depression Screening, Annual for Pts 12 and Over 10/21/2022 10/21/2021 Influenza Vaccine (FLU shot) (Season Ended) 2022 07/15/2019, 02/22/2016, 03/08/2015 GFR 03/15/2023 09/13/2022, 08/16, 03/19/2022, Additional history exists HbA1c 03/15/2023 09/13/2022, 07/0 11/2021, 02/28/2021, Additional history exists CKD HGB USE SMARTSET 71271 09/14/202309/13, 09/12/2022, 09/12/2022, Additional history exists CKD PHOS USE SMARTSET 54835 09/14/2023 05/3 04/2022, 03/19/2022, 10/21/2021 DXA Scan [...] the patient have Health Care Power of Light Rail Vehicle Operator? No Full Code 02/28/2021 8:35 AM 03/01/2021 8:18 PM Thi s order reflects the patients wishes and were consensually agreed upon. Question Answer Comments Discussion of Advance Directives occurred with: Patient Full Code 10/06/2020 12:41 AM 10/06/2020 9:21 PM This order reflects the patients wishes and were consensually agreed upon. Question Answer Comments Discussion of Advance Directives occurred with: Patient Care Teams Private Mortgage Banker Safe Relationship Specialty Start Date End Date Elías Jade MD [address] [address] PCP - General Family Medicine 06/01/21 documented as of this encounter
--- OUTSIDE RECORDS SUMMARY | 2022-12-17 03:23 | External Medical Summary | Summary of Care ---
Author Name Unknown Organization [facility] Address [address] [place] [address] Phone [phone] Care Team Providers Care Knife Blade Polisher Name Role Phone Elías Jade MD Primary Care Provider [phone] Reason for Visit * Reason Onset Date Comments Med Request 09/14/2022 Encounter Details Date Type Department Care Team Description 09/14/2022 Telephone [facility] [address] [employer] [place] [address] Elías Jade MD [address], [place] [id number] Med Request Allergies Active Allergy Reactions Severity Noted [...] Valent (Prevnar) 05/27/2019,03/08/2015 Pneumococcal Polysaccharide PPV23 (Pneumovax) 03 / Seasonal Influenza Virus Vac cine, Unspecified Formulation [...] inexpensive especially with GoodRx coupon. Thanks! Elías Jdae MD, PAULA Family Physician [facility] * Telephone Encounter - Yandy Jiang CPhT - 09/14/2022 3:30 PM EDT Patient calling to check on status of Rx override lisinopril. Thank you, Yandy Jiang Crystal Machining Coordinator [facility] 09/14/2022, 3:30 PM * Telephone Encounter - YUAN Liu - 09/14/2022 12:35 PM EDT Pt called stating lisinopril was increased so pt threw away her other bottle because she was given a new script. Pt said pharmacy can not ene rx until 09/28. Advised pt to call insurance for an override. Thanks, Sheryl Clark Crystal Machining Coordinator Pharmacy Refill Call Center 09/14/2022,12:36 PM * Telephone Encounter - YUAN Stallings - 09/14/2022 12:04 PM EDT Pt calling to request Lisinopril and metoprolol . Informed pt that RX is available at their pharmacy. Pt verbalized understanding and stated they will check with their pharmacy regarding this medication. Thanks, Tyrell Tiffani, Pht Crystal Machining Coordinator Pharmacy Refill Call Center 09/14/2022,12:05 PM documented in this encounter Plan of Treatment Upcoming Encounters Date Type Specialty Care Team Description 09/20/2022 Office Visit Family Medicine Cherelle Hinojosa CRNP [address] [id number] 11/02/2022 Office Visit Family Medicine Mahogany Moncada [...] 03/19/2022, Additional history exists HbA1c 03/15/2023 09/13/2022, 070 11/2021, 02/28/2021, Additional history exists CKD HGB USE SMARTSET 81535 09/14/202309/13, 09/12/2022, 09/12/2022, Additional history exists CKD PHOS USE SMARTSET 71806 09/14/202308/16, 03/19/2022, 10/21/2021 DXA Scan 03/11/2026 03/11/2019 DTaP,Tdap,and [...] the patient have Health Care Power of Physical Therapy Assistant? No Full Code 02/28/2021 8:35 AM 03/01/2021 8:18 PM Thi s order reflects the patients wishes and were consensually agreed upon. Question Answer Comments Discussion of Advance Directives occurred with: Patient Full Code 10/06/2020 12:41 AM 10/06/2020 9:21 PM This order reflects the patients wishes and were consensually agreed upon. Question Answer Comments Discussion of Advance Directives occurred with: Patient Care Teams Knife Blade Polisher Relationship Specialty Start Date End Date Elías Jade MD [facility] [address] [id number] PCP - General Family Medicine 06/01/21 documented as of this encounter
--- OUTSIDE RECORDS SUMMARY | 2022-12-17 03:23 | External Medical Summary ---
Author Name Unknown Address Unknown Organization K1F:[facility] - [address] [place] [address] Laboratory Report Ordering Provider Test Date Status LILIA LANCASTER 09/16/2022 00:19:00 Final Observation Date Value Abnormality Reference (Units ) Status Troponin T 09/16/2022 00:19:00 39 Above high normal < =14 (ng/L) Final Performing Location [facility] - [address] [place] [address]
--- OUTSIDE RECORDS SUMMARY | 2022-12-17 03:23 | External Medical Summary ---
Author Name Unknown Address Unknown Organization : Laboratory Report Ordering Provider Test Date Status CHRIS MORENO 09/16/2022 07:39:06 Final Observation Date Value Abnormality Reference (Units ) Status Glucose Point of Care 09/16/2022 07:39:06 121 Above high normal 70-120 (mg/dL) Final Performing Location
--- OUTSIDE RECORDS SUMMARY | 2022-12-17 03:23 | External Medical Summary ---
Author Name Unknown Address Unknown Organization : Laboratory Report Ordering Provider Test Date Status CHRIS MORENO 09/16/2022 11:26:48 Final Observation Date Value Abnormality Reference (Units ) Status Glucose Point of Care 09/16/2022 11:26:48 135 Above high normal 70-120 (mg/dL) Final Performing Location
--- OUTSIDE RECORDS SUMMARY | 2022-12-17 03:23 | External Medical Summary | Summary of Care ---
Author Name Unknown Organization [facility] Address [address] [place] [address] Phone [phone] Care Team Providers Care Special Agent In Charge Name Role Phone Elías Jade MD Primary Care Provider [phone] Reason for Visit * Reason Onset Date Comments Hospital Follow-Up 09/28/2022 Encounter Details Date Type Department Care Team Description 09/28/2022 Telephone [facility] [address] [facility] [place] [address] Elías Jade MD [address] [employer] [place], [place] [id number] Hospital Follow-Up Allergies Active Allergy Reactions Severity Noted Date Comments Eggs Or Egg-Derived Products Diarrhea 021 documented as of this encounter (statuses as of 09/29/2022) Medications Medication Sig Dispensed Refills Start Date [...] every morning. 60 Tablet 0 09/16/2022 Active documented as of this encounter (statuses as of 09/29/2022) Active Problems Problem Noted Date GERD (gastroesophageal reflux disease) 0 09/16/2022 Stress [...] as of this encounter (statuses as of 09/29/2022) Resolved Problems Problem Noted Date Resolved Date [...] as of this encounter (statuses as of 09/29/2022) Immunizations Name Administration Dates Next Due DTaP [...] Miscellaneous Notes * Telephone Encounter - MANDY Mak - 09/29/2022 9:39 AM EDT Spoke to pt and scheduled her HD appt with Dr. Wilson first available appt on 10/12/22@11:00 am. * Telephone Encounter - Ella Shipley LPN - 09/28/2022 12:22 PM EDT Please schedule in first available appointment slot. * Telephone Encounter - MANDY Arora - 09/28/2022 11:58 AM EDT No appointments available. Patient declined appointments?: no Is this appointment ACUTE (Yes/No)? no If YES, were surrounding clinics offered to patient (Yes/No)? no Explain HD Was patient offered appointments with other available providers (Yes/No)? no If No, explain No appointments showing within given time frame for HD f/u See Call Details? (Yes or No): yes documented in this encounter Plan of Treatment Upcoming Encounters Date Type Specialty Care Team Description 10/12/2022 Office Visit Family Medicine Elías Jade MD [address] [address] 11/02/2022 Office Visit Family Medicine Mahogany Moncada CRNP [address] [address] Health Maintenance Due Date Last Done Comments [...] Additional history exists CKD PHOS USE SMARTSET 02275 09/14/202308/16, 03/19/2022, 10/21/2021 CKD HGB USE SMARTSET 49736 09/16/202309/15, 09/15/2022, 09/13/2022, Additional history exists DXA [...] the patient have Health Care Power of Shank Boner? No Full Code 02/28/2021 8:35 AM 03/01/2021 8:18 PM Thi s order reflects the patients wishes and were consensually agreed upon. Question Answer Comments Discussion of Advance Directives occurred with: Patient Full Code 10/06/2020 12:41 AM 10/06/2020 9:21 PM This order reflects the patients wishes and were consensually agreed upon. Question Answer Comments Discussion of Advance Directives occurred with: Patient Care Teams Special Agent In Charge Relationship Specialty Start Date End Date Elías Jade MD [facility] [address] [address] PCP - General Family Medicine 06/01/21 documented as of this encounter
--- OUTSIDE RECORDS SUMMARY | 2022-12-17 03:23 | External Medical Summary ---
Author Name Unknown Address Unknown Organization K1F:[facility] - [address] [place] [address] Laboratory Report Ordering Provider Test Date Status LILIA LANCASTER 09/16/2022 03:02:42 Final Observation Date Value Abnormality Reference (Units ) Status SARS Coronavirus 2 09/16/2022 03:02:42 Negative N egative Final Performing Location [facility] - [address] [address]
--- OUTSIDE RECORDS SUMMARY | 2022-12-17 03:23 | External Medical Summary ---
Author Name Unknown Address Unknown Organization K1F:[facility] - [address] [place] [address] Laboratory Report Ordering Provider Test Date Status LILIA LANCASTER 09/15/2022 22:50:32 Final Observation Date Value Abnormality Reference (Units ) Status WBC, Total 09/15/2022 22:50:32 10.31 4.00-10.80 (K/uL) Final RBC 09/15/2022 22:50:32 4.06 3.85-5.15 (M/uL) Final Hemoglobin 09/15/2022 22:50:32 11.1 Below low normal 12.0-15.3 (g/dL) Final HCT 09/15/2022 22:50:32 34.6 Below low normal 36.0-45.2 (%) Final MCV 09/15/2022 22:50:32 85.2 81.5-97.5 (fL) Final MCH 09/15/2022 22:50:32 27.3 27.0-34.0 (pg) Final MCHC 09/15/2022 22:50:32 32.1 32.0-36.0 (g/dL) Final RDW 09/15/2022 22:50:32 14.1 11.5-15.5 (%) Final Platelets 09/15/2022 22:50:32 296 140-400 (K/uL) Final MPV 09/15/2022 22:50:32 10.4 6.6-11.1 (fL) Final Nucleated erythrocytes/100 leukocytes [Ratio] in Blood by Automated count 09/15/2022 22:50:32 0 <=0 (/100 WBCs) Final Performing Location [facility] - [address] [address]
--- OUTSIDE RECORDS SUMMARY | 2022-12-17 03:23 | External Medical Summary ---
Author Name Unknown Address Unknown Organization K1F:[facility] - [address] [place] [place] [address] Laboratory Report Ordering Provider Test Date Status LILIA LANCASTER 09/15/2022 22:50:32 Final Observation Date Value Abnormality Reference (Units ) Status SYNC LEUKOCYTES IN BLOOD BY AUTOMATED COUNT 09/15/2022 22:50:32 10.31 4.00-10.80 (K/uL) Final Segs 09/15/2022 22:50:32 67.8 40.0-75.0 (%) Final Lymphs % 09/15/2022 22:50:32 22.2 18.0-42.0 (%) Final Monos 09/15/2022 22:50:32 7.2 1.0-11.0 (%) Final Eosinophils 09/15/2022 22:50:32 2.1 0.0-6.0 (%) Final Basos 09/15/2022 22:50:32 0.5 0.0-2.0 (%) Final Immature Granulocyte, Percent 09/15/2022 22:50:32 0.2 0.0-2.0 (%) Final Absolute Segs 09/15/2022 22:50:32 6.99 1.80-7.70 (K/uL) Final Lymphs, absolute 09/15/2022 22:50:32 2.29 1.00-4.80 (K/ul) Final Monos, Abs 09/15/2022 22:50:32 0.74 0.00-1.10 (K/uL) Final Eos, Abs 09/15/2022 22:50:32 0.22 0.00-0.70 (K/uL) Final Basos, Abs 09/15/2022 22:50:32 0.05 0.00-0.20 (K/uL) Final Immature Granulocytes, Number 09/15/2022 22:50:32 0.02 0.00-0.20 (K/uL) Final Performing Location [facility] - [address] [facility] [address] [place] [address]
--- OUTSIDE RECORDS SUMMARY | 2022-12-17 03:23 | External Medical Summary | Summary of Care ---
Author Name Unknown Organization [facility] Address [address] [place] [address] Phone [phone] Care Team Providers Care Service Tech/Welder Name Role Phone Sunshine Gilbert MD Primary Care Provider [phone] Reason for Visit * Reason Comments Chest Pain * Auth/Cert Specialty Diagnoses / Procedures Referred By Olivia t Referred To Contact Referral ID Status Reason Start Date Expiration Date Visits Re quested Visits Authorized [id number] Encounter Details Date Type Department Care Team Description 09/15/2022 - 09/16/2022 Emergency 5A [facility] 5th Floor [address], [place] [id number] Darron Solis MD [address] [place] [address] Estevan Guzman MD [address] [facility] [place] [address] Pt Handout (on AVS) Allergies Active Allergy Reactions Severity Noted Date Comments Eggs Or Egg-Derived Products Diarrhea 021 documented as of this encounter (statuses as of 09/17/2022) Medications Medication Sig Dispensed Refills Start Date End Date Status aspirin enteric coated 81 MG TBEC Take 1 Tablet by mouth in the morning. 0 Active omeprazole (PRILOSEC) 20 MG CPDR Take 1 Capsule by mouth in the morning. 0 Active Escitalopram Oxalate 10 MG Oral Tablet (Lexapro)Indicat ions:ADRIANA (generalized anxiety disorder) Take 1 Tablet by mouth daily. 90 Tablet 1 03/07/2021 Active metFORMIN HCl 1000 MG Oral Tablet (Glucophage)Marisa cations:Type 2 diabetes mellitus with stage 3a chronic [...] Active Atorvastatin Calcium 80 MG Oral Tablet (Lipitor)Indicat [...] September 14, 2022. 30 Tablet 0 09/14/2022 3 Active Lisinopril 20 MG Oral Tablet (Prinivil) Take 2 tablets by mouth every morning 60 Tablet 0 09/13/2022 Active Metoprolol Succinate ER 50 MG Oral Tablet Extended Release 24 Hour (toPROL XL) Take 1 Tablet by mouth in the morning. 30 Tablet 0 09/13/2022 3 Active Famotidine 20 MG Oral Tablet (Pepcid) Take 1 Tablet by mouth every morning. 60 Tablet 0 09/16/2022 Active Meclizine HCl 25 MG Oral Tablet (Antivert)Indica tions:Dizziness TAKE 1 TABLET NEEDED IN THE MORNING AND 1 TABLET NEEDED AT NOON AND 1 TABLET NEEDED IN THE EVENING FOR DIZZINESS 30 Tablet 1 10/31/2021 3 Discontinued Benzonatate 100 MG Oral Capsule (Tesarnol Rascon)Indicatio ns:Shortness of breath Take 1 Capsule by mouth 3 times a day as needed for Cough. Do not cut, crush, or chew. 50 Capsule 1 04/01/2022 3 Discontinued documented as of this encounter (statuses as of 09/17/2022) Active Problems Problem Noted Date GERD (gastroesophageal [...] as of this encounter (statuses as of 09/17/2022) Resolved Problems Problem Noted Date Resolved Date [...] as of this encounter (statuses as of 09/17/2022) Immunizations Name Administration Dates Next Due DTaP [...] Sign Reading Time Taken Comments Blood Pressure 101/55 09/16/2022 11:23 AM EDT Pulse 64 09/16/2022 11:23 AM EDT Temperature 37 C (98.6 F) 09/16/2022 11:23 AM EDT Respiratory Rate 18 09/16/2022 11:23 AM EDT Oxygen Saturation 97% 09/16/2022 11:23 AM EDT Inhaled Oxygen Concentration - - Weight 101.2 kg (223 lb) 09/15/2022 10:34 PM EDT Height 167.6 cm (5' 6") 09/16/2022 4:05 AM EDT Body Mass Index 35.99 09/15/2022 10:34 PM EDT documented in this encounter Functional Status [...] No 09/16/2022 documented as of this encounter Discharge Summaries * Estevan Guzman MD - 09/16/2022 12:[address] [facility] [address] Admission Date: 09/15/2022 Discharge Date: 09/16/2022 RECOMMENDED TO DO FOR NEXT PROVIDER(S): Followup with primary gerontological nurse practitioner at [place] REASON(S) FOR MEDICATION CHANGE(S): DISPOSITION ON DISCHARGE: home Active Hospital Problems Diagnosis *Principal Diagnosis - Other chest pain GERD (gastroesophageal reflux disease) Stress Chronic kidney disease, stage 3b (HCC) MANDY (obstructive sleep apnea) Severe obesity with body mass index (BMI) of 35.0 to 39.9 with serious comorbidity (HCC) Type 2 diabetes mellitus with hemoglobin A1c goal of less than 7.0% ([facility]) Resolved Hospital Problems No resolved problems to display. ADMISSION HISTORY & PHYSICAL EXAM (focused): Per dr cedillo This is a 77 yo woman with below pmh that is significant for dm, HTN, gerd, anxiety, lbbb. She was recently admitted here for w/u of chest pain and gerontological nurse practitioner felt it was not cardiac. She also describes increased stress at home as a relative recently and her son is constantly giving her grief. This pain is not exertional and it is same as it was 2 days ago and she had a negative stress test 6 months ago. Both I and the ED doctor gave her option of going home and following up with her gerontological nurse practitioner in clinic. However, she insisted on staying in hospital so that she can once again speak with our on site gerontological nurse practitioner. She denies fever, chills, dyspnea, nausea, vomiting, dysuria.No rashor cough. CV:normal rate Chest:normal respiratory effort, lungs clear to auscultation; pain reproducible on palpation Abdomen:soft, bowel sounds normal, no tenderness Extremities:[facility] COURSE (focused): 77 y/o F patient with New Cardiomyopathy (EF 25%), LBBB, DM, Obesity, LBBB, Heart failure presented to the ER with chest pain- non exertional. Troponin flat. Cardioogy was consulted- chest pain is non cardiac, she will need cardiac cath for her new cardiomyopathy, [facility] at [place] to discuss cardiac cath locally. She denies any chest pain currently, says pepreynaldo helped with her pain - will prescribe pepcid Operations & Procedures: none Complications: none significant Significant Lab and Imaging Results: As mentioned above Results Pending at Discharge: Lab Results Pending at Discharge: None MEDICATION UPDATES AT DISCHARGE START taking these medications INSTRUCTIONS Famotidine 20 MG Tablet Commonly known as: Pepcid Take 1 Tablet by mouth every morning. CONTINUE taking these medications INSTRUCTIONS aspirin enteric coated 81 MG Tbec Take 1 Tablet by mouth in the morning. atorvaSTATin 80 MG Tablet Commonly known as: Lipitor TAKE 1 TABLET BEFORE BEDTIME busPIRone 10 MG Tablet Commonly known as: Buspar TAKE 1 TABLET THREE TIMES DAILY NEEDED FOR ANXIETY escitalopram 10 MG Tablet Commonly known as: Lexapro Take 1 Tablet by mouth daily. Furosemide 40 MG Tablet Commonly known as: Lasix Take 1 Tablet by mouth in the morning. Do not start before September 14, 2022. Lisinopril 20 MG Tablet Commonly known as: Prinivil Take 2 tablets by mouth every morning MetFORMIN 1000 MG Tablet Commonly known as: Glucophage Take by mouth 1 Tablet 2 times a day with morning and evening meals . metoprolol succinate XL 50 MG Tb24 Commonly known as: toPROL XL Take 1 Tablet by mouth in the morning. omeprazole 20 MG Cpdr Commonly known as: PriLOSEC Take 1 Capsule by mouth in the morning. ProAir HFA 108 (90 Base) MCG/ACT Aers Inhale 2 Puffs by mouth every 4 hours as needed for Wheezing. STOP taking these medications Benzonatate 100 MG Capsule Commonly known as: Tessalon Perles meclizine 25 MG Tablet Commonly known as: Antivert SCHEDULED FOLLOW-UP: Future Appointments Appt Date/Time Provider Department 09/20/2022 8:20 AM RODRIGUEZ [facility] 09/22/2022 3:30 PM RODRIGUEZ [facility] 11/02/2022 1:20 PM [facility] Other Information Indwelling Devices: LINES ALL Duration Peripheral Line Left;Lower Arm 18 Gauge <1 day Vital Signs (last recorded): Most Recent Systolic BP: 101 mmHg (09/16/22 112) Most Recent Diastolic BP: 55 mmHg (09/16/22 112) Pulse: 64 (09/16/22 112) Resp: 18 (09/16/22 112) Most Recent Temperature: 37 C (09/16/221122) Weight: 101.2 kg (223 lb) (09/15/222233) SpO2: 97 % (09/16/221122) Allergies: Eggs or egg-derived products Activity: as tolerated Diet: age appropriate diet Code status (this admission): Full Code Discussion of adv directives occurred with - adult: Patient Condition on Discharge: stable Isolation status: None Cognition: normal HOSPITAL CONSULTS ORDERED: CARE MANAGEMENT CONSULT IP CARDIOLOGY CONSULT IP REFERRING PHYSICIAN: Ref: SELF[[id number]] NO STRE[address] ADDRESS AVAILABLE None (office) None (fax) PRIMARY CARE PROVIDER: PCP: Sunshine Gilbert MD [address] [facility] [place] / [place] [address] (office) [phone] (fax) Note: To contact a physician responsible for this patients hospital care, please call [employer] [phone]. I spent a total of 45 minutes coordinating, documenting, and providing care for this patient excluding time spent in the performance of separately billed services. documented in this encounter Discharge Instructions * Discharge Instr - AVS* Estevan Guzman MD - 09/16/2022 12:28 PM EDT Discharge Date: 09/16/2022 The information below provides you with the instructions and the list of medications you need to betaking following discharge from the hospital. If you have any questions, please ask before leaving. If you have questions after leaving, you can reach us at the numbers below. YOUR HOSPITAL PROVIDERS: Discharging Provider: Estevan Guzman MD Provider Department: Hospital Medicine To reach this Provider Sunday through Sunday (8:00 AM to 4:30 PM) for any questions or test results: Call [phone] For after-hours concerns: Call [phone] and have your provider paged, or the provider salesperson wigs for the Department of Hospital Medicine paged. Please note, the discharging provider will not be able to provide you with any medications refills.Please discuss these with your primary care provider. Worsening Symptoms: If you have new symptoms, or your symptoms get worse, please contact your Discharge Provider or Primary Care Provider (PCP). If these providers are not available, you can go to your local [facility] or [facility] Clinic during their business hours. In an EMERGENCY situation: Call [phone] or go to the nearest emergency room. A BRIEF SUMMARY OF YOUR HOSPITAL STAY: You came to the hospital with: chest pain Your main diagnosis at discharge was: ?Reflux ; atypical chest pain Operations & Procedures performed: none Complications: none significant Inpatient test results that are pending at discharge: none Advance Directive Documented: Advance Directive Does the Patient have an Advance Directive? No YOUR FOLLOW UP APPOINTMENTS: Primary Care Provider Information: PCP: Sunshine Gilbert MD [address] [facility] [address] (office) [phone] (fax) An appointment was requested with your PCP (Sunshine Gilbert MD) within 7 days. (Please take this form to this visit with your primary care physician.) You need the following studies in the future: none INSTRUCTIONS: Diet: Heart healthy diet Activity: As tolerated Additional Instructions: - Please followup with PCP, Cardiology at [place] outpatient documented in this encounter H&P Notes * Dmitry Cedillo MD - 09/16/2022 3:34 AM EDT Images from the original note were not included. [facility] PRESENTING PROBLEM: Chest pain HPI: This is a 77 yo woman with below pmh that is significant for dm, HTN, gerd, anxiety, lbbb. Shewas recently admitted here for w/u of chest pain and gerontological nurse practitioner felt it was not cardiac. She alsodescribes increased stress at home as a relative recently and her son is constantly giving hergrief. This pain is not exertional and it is same as it was 2 days ago and she had a negative stress test 6 months ago. Both I and the ED doctor gave her option of going home and following up with her gerontological nurse practitioner in clinic. However, she insisted on staying in hospital so that she can once again speak with our on site gerontological nurse practitioner. She denies fever, chills, dyspnea, nausea, vomiting, dysuria. No rash or cough. She doesn't use cpap or oxygen for mandy ROS: As per HPI and all other systems reviewed and negative. Subjective Patient's past history, medications, and allergies were reviewed. Objective Physical Exam Most Recent Vital Signs: BP: 145 mmHg/63 mmHg (09/16/22 0300) Pulse: 71 (09/16/22 0300) Temp: 36.28 C (09/15/22 2234) Resp: 18 (09/16/22 0300) SpO2: 94 % (09/15/22 2234) Constitutional:no acute distress HEENT:normal: normocephalic, atraumatic Eyes:sclera and conjunctiva normal Neck:supple CV:normal rate Chest:normal respiratory effort, lungs clear to auscultation; pain reproducible on palpation Abdomen:soft, bowel sounds normal, no tenderness Extremities:noedema Skin:warm, dry, intact: Neuro:alert, oriented to person, place,non-focal Psych: anxious and tearful Peripheral Line Left;Lower Arm 18 Gauge (Active) Number of days: 1 STUDIES: Labs and other studies reviewed with pertinent findings noted below: Results for orders placed or performed during the hospital encounter of 09/15/22 COMPREHENSIVE METABOLIC PANEL Result Value Ref Range BUN 24 (H) 6 - 20 mg/dL Creatinine 1.7 (H) 0.5 - 1.0 mg/dL Estimated Glomerular Filtration Rate 31 (L) >=60 mL/min Sodium 137 135 - 146 mmol/L Potassium 3.9 3.5 - 5.1 mmol/L Chloride 97 (L) 98 - 107 mmol/L CO2 28 22 - 32 mmol/L Anion Gap 12 7 - 15 mmol/L Glucose 151 (H) 70 - 120 mg/dL Albumin 4.3 3.8 - 5.0 g/dL AST 23 10 - 35 U/L Alkaline Phosphatase 111 35 - 130 U/L Bilirubin, Total 0.5 <=1.2 mg/dL Calcium 10.2 8.4 - 10.2 mg/dL Protein 7.6 6.0 - 8.3 g/dL ALT 12 10 - 35 U/L TROPONIN T, HIGH SENSITIVITY Result Value Ref Range Troponin T, High Sensitivity 37 (H) <=14 ng/L CBC Result Value Ref Range WBC 10.31 4.00 - 10.80 K/uL RBC 4.06 3.85 - 5.15 M/uL HGB 11.1 (L) 12.0 - 15.3 g/dL HCT 34.6 (L) 36.0 - 45.2 % MCV 85.2 81.5 - 97.5 fL MCH 27.3 27.0 - 34.0 pg MCHC 32.1 32.0 - 36.0 g/dL RDW 14.1 11.5 - 15.5 % PLT 296 140 - 400 K/uL MPV 10.4 6.6 - 11.1 fL nRBCs 0 <=0 /100 WBCs DIFFERENTIAL, AUTOMATED Result Value Ref Range WBC 10.31 4.00 - 10.80 K/uL Neutrophils % 67.8 40.0 - 75.0 % Lymphocytes % 22.2 18.0 - 42.0 % Monocytes % 7.2 1.0 - 11.0 % Eosinophils % 2.1 0.0 - 6.0 % Basophils % 0.5 0.0 - 2.0 % Immature Granulocytes % 0.2 0.0 - 2.0 % Absolute Neutrophils 6.99 1.80 - 7.70 K/uL Absolute Lymphocytes 2.29 1.00 - 4.80 K/ul Absolute Monocytes 0.74 0.00 - 1.10 K/uL Absolute Eosinophils 0.22 0.00 - 0.70 K/uL Absolute Basophils 0.05 0.00 - 0.20 K/uL Absolute Immature Granulocytes 0.02 0.00 - 0.20 K/uL TROPONIN T, HIGH SENSITIVITY Result Value Ref Range Troponin T, High Sensitivity 39 (H) <=14 ng/L XR CHEST 2 VIEWS Final Result PROCEDURE INFORMATION: Exam: XR Chest Exam date and time: 09/15/2022 11:12 PM Age: 77 years old Clinical indication: Other: Chest pain TECHNIQUE: Imaging protocol: Radiologic exam of the chest. Views: 2 views. COMPARISON: DX XR CHEST 2 VIEWS 09/12/2022 11:01 PM FINDINGS: Tubes, catheters and devices: Aortic valvular prosthesis in the expected position. Lungs: Pulmonary hyperinflation without airspace disease, also similar. Pleural spaces: No pleural effusion. No pneumothorax. Heart/Mediastinum: Moderate cardiomegaly is similar. Mild central vascular congestion, improved. Bones/joints: Median sternotomy wires. No displaced fracture. Intraperitoneal space: Right upper quadrant clips, probable cholecystectomy. IMPRESSION IMPRESSION: 1. Moderate cardiomegaly is similar. Mild central vascular congestion, improved. 2. Pulmonary hyperinflation without airspace disease, also similar. THIS DOCUMENT HAS BEEN ELECTRONICALLY SIGNED BY SALUD JUAREZ MD Assessment and Plan IMPRESSION: Principal Problem: Other chest pain Active Problems: Type 2 diabetes mellitus with hemoglobin A1c goal of less than 7.0% (HCC) Severe obesity with body mass index (BMI) of 35.0 to 39.9 with serious comorbidity (HCC) MANDY (obstructive sleep apnea) Chronic kidney disease, stage 3b (HCC) GERD (gastroesophageal reflux disease) Stress Resolved Problems: * No resolved hospital problems. * DIFFERENTIAL AND PLAN: Presentation suggests this pain may be due to stress at home and in this case she should be treatedfor stress and gerd. -added pepcid q12, anti-acid as needed -continue home meds -cardiology consult as patient requests. -insulin for dm2 -prn anxiolytic -consider stress management therapist referral. PHARMACOLOGIC VTE PROPHYLAXIS:Enoxaparin CODE STATUS: Full Code EXPECTED DISCHARGE DATE: 1-2 days or more documented in this encounter Consult Notes * Imelda Andersen RN - 09/16/2022 11:13 AM EDTAssociated Order(s): CARE MANAGEMENT CONSULT IP See ancillary notes * Santosh Perez DO - 09/16/2022 8:24 AM EDTAssociated Order(s): CARDIOLOGY CONSULT IP Cardiology Consultation [facility] 09/16/2022 Reason for Consultation: 1. Chest pain 2. Left bundle-branch block 3. Cardiomyopathy Provider Requesting Consultation: PCP: SUNSHINE GILBERT [address] [facility] [place] [address] History of Present Illness: Sahra Rodríguez is a 77 year old year old female who I saw in the hospital earlier this week withchest pain. She has a known history of a bicuspid aortic valve and she tells me her pre valve cardiac catheterization had angiographically normal coronary arteries. She was found to have a cardiomyopa thy but I did not feel her chest pain was cardiac in nature as it was reproducible to palpation. Her sister recently and there is other family strife and she is under a great deal of stress. I felt her cardiomyopathy was related to a left bundle-branch block and potentially stress-induced cardi omyopathy. I did feel she needed a cardiac catheterization at some point given her new cardiomyopathy. She hasa primary gerontological nurse practitioner in [place] who she wished to see for this problem. It should also be noted she had chest pain similar to this in late 2021 and had a pharmacologic Cardiolite stress test which was negative for ischemia. She presented back to the emergency department with chest discomfort. Once again is reproducible topalpation. Review of Systems: Constitutional (fever/chills/unintentional weight loss/vision/hearing): Negative Respiratory (cough/shortness of breath/dyspnea on exertion): Negative Cardiovascular (chest pain/palpitations/fluttering/diaphoresis/dyspnea on exertion/paroxysmally nocturnal dyspnea):see above hpi GI (nausea/vomiting/diarrhea/heart burn): Negative Endo (hair/cold or heat intolerance/ polyuria, polydypsia, polyphagia): Negative Neuro (shaking/weak/fatigue/parasthesias): Negative Skin (rash/easy bruising/xerosis): Negative Psychological (hallucinations): Negative (nocturia/urinary hesitancy/sexual review): Negative All other ROS negative or as stated above. Past Medical History: Patient Active Problem List Diagnosis Code Type 2 diabetes mellitus with hemoglobin A1c goal of less than 7.0% ([facility]) E11.9 Dyslipidemia, goal LDL below 100 E78.5 ADRIANA (generalized anxiety disorder) F41.1 S/P aortic valve replacement Z95.2 Right renal mass N28.89 Type 2 diabetes mellitus with diabetic chronic kidney disease ([facility]) E11.22 Secondary hyperparathyroidism, non-renal ([facility]) E21.1 B12 deficiency E53.8 Severe obesity with body mass index (BMI) of 35.0 to 39.9 with serious comorbidity ([facility]) E66.01 MANDY (obstructive sleep apnea) G47.33 Other chest pain R07.89 Left bundle branch block (LBBB) I44.7 Uncontrolled hypertension I10 Left heart failure ([facility]) I50.1 Type 2 diabetes mellitus with stage 3b chronic kidney disease ([facility]) E11.22, N18.32 Chronic kidney disease, stage 3b ([facility]) N18.32 GERD (gastroesophageal reflux disease) K21.9 Stress F43.9 Past Surgical History: Procedure Laterality Date REMOVE CATARACT, INSERT LENS PROSTH Bilateral REMOVE GALLBLADDER 1986 REPLACEMENT OF AORTIC VALVE (KONNO) 2010 23mm Jocelynn Coto pericardial bioprosthesis Family History: Family History Problem Relation Age of Onset Heart attack Mother Stroke Sister Cancer Brother unknown primary Social History: Social History Socioeconomic History Marital status: Spouse [...] on file Housing Stability: Not on file Allergies: Eggs or egg-derived products Medications: Prior to Admission medications Medication Sig Last Dose Discont. Furosemide 40 MG Oral Tablet (Lasix) Take 1 Tablet by mouth in the morning. Do not start before September 14, 2022. 09/15/2022 Lisinopril 20 MG Oral Tablet (Prinivil) Take 2 tablets by mouth every morning 09/16/2022 Metoprolol Succinate ER 50 MG Oral Tablet Extended Release 24 Hour (toPROL XL) Take 1 Tablet by mouth in the morning. 09/15/2022 busPIRone HCl 10 MG Oral Tablet (Buspar) TAKE 1 TABLET THREE TIMES DAILY NEEDED FOR ANXIETY 09/15/2022 Atorvastatin Calcium 80 MG Oral Tablet (Lipitor) TAKE 1 TABLET BEFORE BEDTIME 09/15/2022 metFORMIN HCl 1000 MG Oral Tablet (Glucophage) Take by mouth 1 Tablet 2 times a day with morning and evening meals . 09/15/2022 Escitalopram Oxalate 10 MG Oral Tablet (Lexapro) Take 1 Tablet by mouth daily. Past Week aspirin enteric coated 81 MG TBEC Take 1 Tablet by mouth in the morning. 09/16/2022 omeprazole (PRILOSEC) 20 MG CPDR Take 1 Capsule by mouth in the morning. Past Week Benzonatate 100 MG Oral Capsule (Tessalon Perles) Take 1 Capsule by mouth 3 times a day as needed for Cough. Do not cut, crush, or chew. Patient not taking: Reported on 09/16/2022 Not Taking ProAir HFA 108 (90 Base) MCG/ACT Inhalation Aerosol Solution Inhale 2 Puffs by mouth every 4 hours as needed for Wheezing. Patient not taking: Reported on 09/16/2022 Not Taking Meclizine HCl 25 MG Oral Tablet (Antivert) TAKE 1 TABLET NEEDED IN THE MORNING AND 1 TABLET NEEDED AT NOON AND 1 TABLET NEEDED IN THE EVENING FOR DIZZINESS Patient not taking: Reported on 09/16/2022 Not Taking Current Facility-Administered Medications Medication Dose Route Frequency Provider Acetaminophen (Tylenol) tab 650 mg 650 mg Oral Q6H PRN Dmitry Cedillo MD Albuterol Sulfate (Proventil) (2.5 MG/3ML) 0.083% inhalation solution 2.5 mg 2.5 mg Nebulizer Q4H PRN Dmitry Cedillo MD aspirin enteric coated tab 81 mg 81 mg Oral Daily(AM) Dmitry Cedillo MD atorvaSTATin (Lipitor) tab 80 mg 80 mg Oral Q 1700 Dmitry Cedillo MD busPIRone (Buspar) tab 10 mg 10 mg Oral Daily PRN Dmitry Cedillo MD dextrose 50 % inj 25 mL 25 mL IV Push PRN Dmitry Cedillo MD dextrose 50 % inj 50 mL 50 mL IV Push PRN Dmitry Cedillo MD Enoxaparin (Lovenox) inj 40 mg 40 mg Subcutaneous Daily 1000 Dmitry Cedillo MD escitalopram (Lexapro) tab 10 mg 10 mg Oral Daily(AM) Dmitry Cedillo MD Famotidine (Pepcid) tab 20 mg 20 mg Oral Q12H Dmitry Cedillo MD Furosemide (Lasix) tab 40 mg 40 mg Oral Daily(AM) Dmitry Cedillo MD glucagon (Glucagen) inj 1 mg 1 mg Intramuscular PRN Dmitry Cedillo MD Glucose (Glutose 15) 40 % gel 15 g of glucose 15 g of glucose Oral PRN Dmitry Cedillo MD Glucose (Glutose 15) 40 % gel 30 g of glucose 30 g of glucose Oral PRN Dmitry Cedillo MD glucose chew tab 16 g 16 g Oral PRN Dmitry Cedillo MD house antacid (Mi-Acid II) oral susp 15 mL 15 mL Oral Q6H PRN Dmitry Cedillo MD insulin aspart (NovoLOG) inj Subcutaneous With Meals and HS Dmitry Cedillo MD Lisinopril (Prinivil) tab 20 mg 20 mg Oral Daily(AM) Dmitry Cedillo MD melatonin tab 3 mg 3 mg Oral HS PRN Dmitry Cedillo MD metoprolol succinate XL (toPROL XL) tab 50 mg 50 mg Oral Daily(AM) Estevan Guzman MD omeprazole (PriLOSEC) cap 20 mg 20 mg Oral Daily(AM) Dmitry Cedillo MD Polyethylene Glycol 3350 (Miralax) oral powder 17 g 1 Packet Oral Daily PRN Dmitry Cedillo MD senna (Senokot) 1 Tablet 1 Tablet Oral Daily PRN Dmitry Cedillo MD sodium chloride 0.9 % flush/inj 3 mL 3 mL IV Push PRN Dmitry Cedillo MD OBJECTIVE/PHYSICAL EXAMINATION: BP 112/53 | Pulse 66 | Temp 36.3 C (97.3 F) (Temporal Artery) | Resp 18 | Ht 1.676 m (5' 6") | Wt 101.2 kg (223 lb) | SpO2 97% | BMI 35.99 kg/m | BSA 2.17 m General: no acute distress and stated age Eyes: conjunctiva are pink and non-injected, sclera clear Neck: normal jugular venous pulse, no hepatojugular reflux Chest: normal shape and normal respiratory effort Lungs: clear to auscultation and percussion Cardiac Exam: - regular heart sounds, paradoxically split S2 Abdomen: abdomen soft, non-tender, no abnormal masses and no hepatosplenomegaly Musculoskeletal: Chest pain reproducible to palpation Extremities: no edema and no cyanosis Neuro: grossly normal exam Psych: appropriate affect and insight. Skin: No rash Lymph: No adenopathy Data: CBC Results: BUN Results: Lab Results Component Value Date/Time BUN - [facility] 24 (H) 09/15/2022 10:50 PM BUN - [facility] 15 09/13/2022 05:21 AM BUN - [facility] 16 09/12/2022 11:15 PM BUN - [facility] 11 10/31/2019 10:03 AM BUN - [facility] 15 06/03/2019 07:54 AM BUN - [facility] 17 05/19/2019 10:59 PM Creatinine Results: Lab Results Component Value Date/Time CREATININE - [facility] 1.7 (H) 09/15/2022 10:50 PM CREATININE - [facility] 1.3 (H) 09/13/2022 05:21 AM CREATININE - [facility] 1.4 (H) 09/12/2022 11:15 PM CREATININE - [facility] 1.2 (H) 10/31/2019 10:03 AM CREATININE - [facility] 1.0 06/03/2019 07:54 AM CREATININE - [facility] 1.1 (H) 05/19/2019 10:59 PM CREATININE, RANDOM URINE - [facility] 117 04/01/2021 10:49 AM CREATININE, RANDOM URINE - [facility] 154 07/16/2020 09:04 AM CREATININE, RANDOM URINE - [facility] 49 06/06/2019 04:28 PM Potassium Results: Lab Results Component Value Date/Time POTASSIUM - [facility] 3.9 09/15/2022 10:50 PM POTASSIUM - [facility] 3.8 09/13/2022 05:21 AM POTASSIUM - [facility] 3.7 09/12/2022 11:15 PM POTASSIUM - [facility] 4.6 10/31/2019 10:03 AM POTASSIUM - [facility] 4.7 06/03/2019 07:54 AM POTASSIUM - [facility] 4.0 05/19/2019 10:59 PM Lipid Panel Results: IMPRESSION: 77 year old year old female with chest pain, cardiomyopathy, and left bundle- branch block. RECOMMENDATIONS/PLAN: 1. Chest pain: Her chest pain is reproducible to palpation I do not think her chest pain is cardiacrelated. 2. Cardiomyopathy: She does have a new cardiomyopathy which I suspect is left bundle-branch block related and possibly stress-induced cardiomyopathy. I had a long discussion with her about this once again and I do recommend a cardiac catheterization for evaluation of her new cardiomyopathy. Her primary gerontological nurse practitioner is in [place] in that facility does have a catheterization laboratory. She wishes to see her primary gerontological nurse practitioner discuss a cardiac catheterization locally in [place]. 3. Left bundle-branch block: This very well may be contributing to her cardiomyopathy. I think she can be discharged and follow up with her primary gerontological nurse practitioner in [place]. Santosh Perez, DO [address] [facility], [facility] 5th Floor [address] [facility] [place] [id number] This chart was completed in part utilizing [employer] Speech Voice Recognition Software. Grammatical errors, random word insertions, prounoun errors, and incomplete sentences are an occasional consequence of this system due to software limitations, ambient noise, and hardware issues. Any formal questions or concerns about the content, text, or information contained within the body of this dictation should be directly addressed to the provider for clarification. documented in this encounter Nursing Notes * Renee Almonte RN - 09/16/2022 2:22 PM EDT NURSING DISCHARGE PROGRESS NOTE [address] [address] Name: Sahra Rodríguez Location: [facility] [id number]-[id number]/W Date: 09/16/2022 Time: 2:54 PM FUNCTIONAL INDEPENDENCE MEASURE (must be completed for all patients on discharge): Feedin = Complete independence Locomotion: 4 = Complete independence Expression: 4 = Complete independence Transfer Mobility: 4 = Complete independence Social Interaction: 4 = Complete independence Destination: Home OXYGENATION: Discharged with O2: No PATIENT DEVICES: None * Renee Almonte RN - 09/16/2022 2:05 PM EDT Dual Licensed Skin Assessment completed by Renee Almonte RN and Radha Gallegos RN. The patient is/has a N/A Skin Breakdown (includes non blanchable erythema): No * Radha Gallegos RN - 09/16/2022 1:00 PM EDT You have a follow up appointment with Cherelle Hinojosa September 20, 2022 at 8:20 AM [place] [address] Please call your primary Clinical Quality Manager to schedule a appointment. * Lori Bhakta RN - 09/16/2022 4:59 AM EDT Late entry-0400 Patient arrived to unit. Patient ambulated in room to bed with no issues. Patient is AO x4 and VS stable. Admission questions are complete. Patient is oriented to room and call bhakta within reach. Patient denies further needs at this time. documented in this encounter ED Notes * Darron Soils MD - 09/15/2022 11:55 PM EDT HISTORY OF PRESENT ILLNESS Sahra Rodríguez is a 77 year old female who presents to the ED for evaluation of Chest Pain. The patient was seen at 09/15/222352. Pt states she was seen in ED 3 days ago and admitted overnight for chest pain. Pt states that this pain feels same as the pain did a few days ago. Pt states that shehad some numbness in her left middle finger at one point with the pain. Pt also states that she gets anxiety attacks and states that this episode felt as such. Chest pain started in the afternoon went away around 23:30 felt like a dull ache. She thinks of it as her prior anxiety issues, she took medicine for that earlier in the day and is not sure of the medications worked or not. She is never had prior myocardial infarction diagnosed shows stress test last on March 2022 as far as she knows that was okay she does not think she ever had a heart catheterization however did have heart valve replacement in [place] in 2011 she does not know which heart valve that was. Had prior cholecystectomy. Mother had which she describes as a massive myocardial infarction in her 60s Patient has had new symptom of excess tiredness with any exertion times a couple of months she doesnot think she has had any type of pain produced with exertion simply excess tiredness. She thinks this started after the most recent stress test Chest Pain Review of Systems Cardiovascular: Positive for chest pain. The patient's allergies, past history, and medications were reviewed. PHYSICAL EXAM Initial Vitals (see all): BP 152/70 | Pulse 78 | Resp 20 | Temp 97.3 | O2 94 %Weight 101.15 kg | Height 167.6 cm | BMI 35.99 kg/m2 Initial Pain Assessment (see all): 4 (moderate pain)/10 ([facility] Adult Scale 0-10) Physical Exam Vitals and nursing note reviewed. HENT: Head: Normocephalic. Right Ear: External ear normal. Left Ear: External ear normal. Mouth/Throat: Pharynx: Oropharynx is clear. Eyes: Extraocular Movements: Extraocular movements intact. Neck: Trachea: No tracheal deviation. Cardiovascular: Rate and Rhythm: Normal rate. Pulmonary: Effort: Pulmonary effort is normal. Breath sounds: Normal breath sounds. Abdominal: Palpations: Abdomen is soft. Tenderness: There is no abdominal tenderness. Musculoskeletal: General: No deformity. Skin: Findings: No rash. Neurological: Mental Status: She is alert. Motor: No weakness. Psychiatric: Behavior: Behavior is cooperative. PROCEDURES AND TREATMENTS ED Orders | ED Results MEDICAL DECISION MAKING Nursing notes and vital signs were reviewed. ED consults were placed. ED Course as of 09/16/22 0339 SunSep 15, 2022 2356 EKG shows sinus rhythm sinus arrhythmia rate of 76 left bundle-branch block pattern no concordant changes no significant change from prior study [RO] SunSep 16, 2022 0009 She did not yet take her evening dose of asa 81 mg [RO] 0201 Troponin minimally higher than before, basically flat. [RO] 0258 I discussed options with the patient, I am concerned that this new exertional trouble may be asign of angina, unfortunately will be several days before we can get her a stress test, she thoughtabout departing before further evaluation was done but with a heart score of 7 she has significant risk, particularly as apparently her mother had very large myocardial infarction when she was 10 years younger than patient is now. [RO] 0335 Patient would like to stay in the hospital until cardiology can discuss the new symptoms with her. Hospitalist agrees. Patient is aware of the possibility that she might go home today after evaluation/consultation. [RO] ED Course User Index [RO] Darron Solis MD Scoring Tools Results (see details): HEART Score: 7 Clinical Impressions Chest pain Left bundle branch block Elevated troponin Disposition Admitted. I discussed the management of this patient with the admitting provider and I made a decision to admit the patient. Admission Order Ordered Status . 09/16/22 0338 Assign to Observation ONCE Ordered Darron Solis * Cassandra Borges RN - 09/15/2022 10:33 PM EDT Pt presents to the ED with c/o centralized chest pain. Pt states that the pain is intermittent, denies radiation of pain. Pt reports that she has had some numbness in her fingers bilaterally but denies any in her arms. documented in this encounter Miscellaneous Notes * Ancillary Progress Note - Imelda Andersen RN - 09/16/2022 2:22 PM EDT ADULT CARE MANAGEMENT - DISCHARGE NOTE [facility] [address] Name: Sahra Rodríguez Location: [facility] [id number] Date: 09/16/2022 Time: 3:39 PM The following coordination of care and discharge plan has been coordinated with the care team, patient, family and/or caregiver according to the patients needs and preferences. Discharge Discharge Insurance considerations verified and completed: Yes (09/16/221450) Was Caregiver/Family contacted regarding discharge: Yes (09/16/221450) Discharge Transportation: Family/Friends drive (09/16/221450) Date of scheduled discharge transportation: 09/16/22 (09/16/221450) Time of scheduled discharge transportation: 1500 (09/16/221450) Patient declined post-hospital transition of care recommendation: N/A (09/16/221450) Final D/C Plan - Complete at time of D/C Final Discharge Plan (Complete only at time of Discharge): Home - Self Care (09/16/221450) Destination - Discharged on 09/16/2022 Admission date: 09/15/2022 - Discharge disposition: Home - Self Care No services have been selected for the patient. Narrative: Patient discharged to home with family support. * Pt Handout (on AVS) - Radha Gallegos RN - 09/16/2022 12:49 PM EDT Images from the original note were not included. [id number] Famotidine Oral Tablet Brands: Pepcid Uses This medicine is used for the following purposes: heartburn inflammation of stomach prevent heartburn prevent indigestion stomach acid stomach acid reflux ulcers in stomach or intestines ulcers in stomach or intestines Instructions This medicine may be taken with or without food. Swallow with a full glass (8 oz) of water unless your doctor gives you different instructions. Keep the medicine at room temperature. Avoid heat and direct light. Keep the medicine away from heat and light. This medicine can reduce the absorption of other medicines. Talk to your doctor or pharmacist aboutthe best times to use this product. It is important that you keep taking each dose of this medicine on time even if you are feeling well. If you forget to take a dose on time, take it as soon as you remember. If it is almost time for thenext dose, do not take the missed dose. Return to your normal schedule. Do not take 2 doses at one time. Drug interactions can change how medicines work or increase risk for side effects. Tell your healthcare providers about all medicines taken. Include prescription and fzhy-puf-vspexwi medicines, vitamins, and herbal medicines. Speak with your doctor or pharmacist before starting or stopping any medicine. Tell your doctor if symptoms do not get better or if they get worse. Cautions Tell your doctor and pharmacist if you ever had an allergic reaction to a medicine. Do not use the medication any more than instructed. Tell the doctor or pharmacist if you are , planning to be , or . Do not share this medicine with anyone who has not been prescribed this medicine. Side Effects The following is a list of some common side effects from this medicine. Please speak with your doctor about what you should do if you experience these or other side effects. constipation or diarrhea headaches Call your doctor or get medical help right away if you notice any of these more serious side effects: bleeding or bruising chest pain confusion dizziness fainting fast or irregular heart beats seizures shortness of breath A few people may have an allergic reaction to this medicine. Symptoms can include difficulty breathing, skin rash, itching, swelling, or severe dizziness. If you notice any of these symptoms, seek medical help quickly. Extra Please speak with your doctor, nurse, or pharmacist if you have any questions about this medicine. [email or web address] IMPORTANT NOTE: This document tells you briefly how to take your medicine, but it does not tell youall there is to know about it. Your doctor or pharmacist may give you other documents about your medicine. Please talk to them if you have any questions. Always follow their advice. There is a more complete description of this medicine available in Wolof. Scan this code on your smartphone or tablet or use the web address below. You can also ask your pharmacist for a printout. If you have any questions, please ask your pharmacist. The display and use of this drug information is subject to Terms of Use. Copyright(c) 2022 [employer]. 6399-2942 [employer]. All rights reserved. This information is not intended as a substitute for professional medical care. Always follow your healthcare professional's instructions. * Pt Handout (on AVS) - Radha Gallegos RN - 09/16/2022 12:49 PM EDT Images from the original note were not included. [id number] Uncertain Causes of Chest Pain Chest pain can happen for a number of reasons. Sometimes the cause can't be determined. If your condition does not seem serious, and your pain does not appear to be coming from your heart, your healthcare provider may recommend watching it closely. Sometimes the signs of a serious problem take moretime to appear. Many problems not related to your heart can cause chest pain. These include: Musculoskeletal. Costochondritis is an inflammation of the tissues around the ribs that can occur from trauma or overuse injuries, or a strain of the muscles of the chest wall. Respiratory. Pneumonia, collapsed lung (pneumothorax), or inflammation of the lining of the chest and lungs (pleurisy). Gastrointestinal. Esophageal reflux, heartburn, ulcers, or gallbladder disease. Anxiety and panic disorders Nerve compression and inflammation Rare problems such as aortic aneurysm or aortic dissection (a swelling of the large artery coming out of the heart or a tear in the wall of the artery), or pulmonary embolism (a blood clot in the lungs). Home care After your visit, follow these recommendations: Rest today and avoid strenuous activity. Take any prescribed medicine as directed. Be aware of any recurrent chest pain and notice any changes Follow-up care Follow up with your healthcare provider if you don't start to feel better within 24 hours, or as advised. Call 911 Call 911 if any of these occur: A change in the type of pain: if it feels different, becomes more severe, lasts longer, or begins to spread into your shoulder, arm, neck, jaw or back Shortness of breath or increased pain with breathing Weakness, dizziness, or fainting Rapid heartbeat Crushing sensation in your chest Coughing up more than a small amount of blood. When to seek medical advice Call your healthcare provider right away if any of the following occur: Cough with dark colored sputum (phlegm) or small amount of blood Fever of 100.4F (38C) or higher, or as directed by your healthcare provider Swelling, pain or redness in one leg Last Reviewed Date: 04/16/202119995919-5012 [employer]. All rights reserved. This information is not intended as a substitute for professional medical care. Always follow your healthcare professional's instructions. * Ancillary Progress Note - Imelda Andersen RN - 09/16/2022 11:10 AM EDT CARE MANAGEMENT - ADULT INITIAL SCREENING [address] [address] Name: Sahra Rodríguez Location: [facility] 5A-[id number]/W Date: 09/16/2022 Time: 11:11 AM Patient Class: Observation (09/16/22 1100) Discussed patient with the interdisciplinary care team. This Telecommunication Lines Repairer performed a chart review and met with patient at bedside to complete admission screen and assessed needs for transition planning. The director career role and services were explained and emotional support was provided. 30 Day Readmission Screening 30 Day Readmission Readmission within 30 days?: Yes, the previous hospital stay was at THIS [facility] (09/16/221099) Where were you readmitted from?: Home without home care (including Assisted Living, Long Term, Personal Mcfp) (09/16/221099) Did you see your doctor before coming back to the hospital?: No, appointment was scheduled but had to return to hospital before the appointment (09/16/221099) Did you feel ready when you left the hospital?: Yes (09/16/221099) Did you have any difficulty obtaining your prescriptions/medicines when you left the hospital?: No (09/16/221099) Did you take ALL of your medicines, as directed?: Yes (09/16/221099) Chief Complaint: Chest Pain Prior Living Arrangements What was your living situation prior to admission/observation?: With Child (09/16/221099) Do you have any children, pets, or other dependents that you are currently caring for?: Yes (comment) (1 dog - Uzair) (09/16/221099) Living Quarters: House (09/16/221099) How many stories is the dwelling?: One Story (09/16/221099) Number of steps to enter living quarters:: 1 (09/16/221099) Location of bathroom(s): All floors or Single story dwelling (09/16/221099) Do you have serious difficulty walking or climbing stairs? (5 years old or older): Yes (09/16/22 0405) History of falling: No (09/16/22 0415) Prior Level of Functioning Describe the patient's ability prior to admission/observation to perform ADLs: Performs independently (09/16/221099) Describe the patient's mobility status prior to admission: Patient ambulates independently;Patient is able to sit on bedside;Patient can sit up in bed (09/16/221099) Patient uses assistive device: No (09/16/221099) If yes, choose:: Cane (09/16/22 0405) Caregiver Information Patient Contacts Name Relation Home Work Mobile Terrence Rodríguez Adult Child [phone] Herlinda Glover Adult Child [phone] Risk Stratification/Psychosocial/Care Gaps Risk Stratification Medical and Behavioral Health Concerns Identified: Chronic disease (09/16/221099) Psycho Social/Care Gaps concerns identified upon admission:: None identified (09/16/221099) Barriers unidentified in Psychosocial - Describe in comment: n/a (09/16/221099) Accessed Neighborly to connect patients to social care resources: No (09/16/221099) OBRA or OPTIONS needed for placement: No (09/16/221099) Readmission Risk Score: 18.24 (09/16/22 0800) AM-PAC Score With Stairs : 23 (09/16/22 0500) Comments: Patient was admitted to [facility] on 09/15 with a diagnosis of Chest Pain. [facility] Pain and discharged to home. PMH includes DM2, MANDY, CKD3, GERD and L Heart Failure. Consults include CM and Cardiology. Patient is form home with son in a 1 story home with 1 step to enter. She is independent with ADLS and does not require an assistive device. 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 No needs identified at time of assessment. Will continue to monitor until discharge. [facility] [employer] Prior to Admission Services Services Prior to Admission EDUCATIONAL DIAGNOSTICIAN Services (Services received within the last 30 days with exception, Psych within last two years): Durable Medical Equipment (09/16/221099) EDUCATIONAL DIAGNOSTICIAN Durable Medical Equipment (DME) in home: Cane;Glucometer;Shower chair/bench;Bedside commode;Walker Rolling (09/16/221099) [place] Dept. of Aging (PDA) Waiver Program: N/A (09/16/221099) EDUCATIONAL DIAGNOSTICIAN Transportation (Services received within the last 30 days): Family/Friends Personal Vehicle (09/16/221099) Outpatient Telecommunication Lines Repairer: no, not applicable Patient/Family Expectations: return to home Anticipated Disposition Plan & Post Acute Needs Anticipated Plan Anticipated D/C disposition per abbreviated screening: Routine discharge or self care, No D/C planning needs identified. Will monitor for status change (09/16/221099) Anticipated Post-Acute Care needs identified: N/A (09/16/221099) For further screening information, please refer to the Care Management flow document. * Care Plan - Lori Bhakta RN - 09/16/2022 5:56 AM EDT Clinical Goal(s): pt will be free from chest pain this shift (09/16/22 0500) Possible barriers to meeting goal(s)/advancing plan of care: admitted with chest pain Stability of the patient: Moderately stable - low risk of patient condition declining or worsening Summary regarding today's goal(s): Met: pt did not have complaints of chest pain this shift Recommendations: continue with plan of care * Communication - Cassandra Borges RN - 09/16/2022 3:50 AM EDT Hand-Off - Nurse Communication Note Name: Sahra Rodríguez Location: Date: 09/16/2022 Time: 3:50 AM Sending to: 4B Safety Concerns: None Allergies: Eggs or egg-derived products Code Status: Full Code Discussion of adv directives occurred with - adult: Patient Isolation: None Isolation flowsheet: Special Needs: Special Needs comments: Attention to: 4B staff Report from: Cassandra Borges RN Phone extension: [phone] Patient arriving via: Wheelchair Reason for SBAR handoff: Admission Situation/Background Admission date: 09/15/2022 Patient Service: Hospitalists [[id number]] Attending Provider: Estevan Guzman MD Admitting diagnosis: Chest pain Chief Complaint: Chest Pain Problem list: Principal Problem: Other chest pain Active Problems: Type 2 diabetes mellitus with hemoglobin A1c goal of less than 7.0% (HCC) Severe obesity with body mass index (BMI) of 35.0 to 39.9 with serious comorbidity (HCC) MANDY (obstructive sleep apnea) Chronic kidney disease, stage 3b (HCC) GERD (gastroesophageal reflux disease) Stress Resolved Problems: * No resolved hospital problems. * Level of Care: Med Surg [3] Assessment Vital Signs: BP: 132/93 (09/16/22329) Temp: 36.3 C (97.3 F) (09/15/222233) Pulse: 80 (09/16/22329) Resp: 18 (09/16/22329) SpO2: 94 % (09/15/222233) Weight: 101.2 kg (223 lb) (09/15/222233) Height: 167.6 cm (5' 6") (09/15/222233) Fall Scale: Fall Score: 20 (09/15/222255) Neurological: Prole Coma Scale Eyes Open: Spontaneous (09/15/222233) Best Verbal Response: Verbally appropriate for age (09/15/222233) Best Motor Response: Obeys commands appropriate for age (09/15/222233) Coma Score: 15 (09/15/222233) Additional Neurological Information: AAOx4, from home alone Respiratory: Respiratory WNL: WNL- within normal limits (09/15/222256) Depth/Rhythm: Regular (09/15/222256) Dyspnea Occurance: None (09/15/222256) Effort: Unlabored (09/15/222256) Additional Respiratory Information: Cardiac: Rhythm: Regular;NSR (09/15/222256) Extremities: +Sensation;Right;Left;Upper;Lower;[place];Warm (09/15/222256) Pulses Right: Palpable;Radial +;Post Tibial + (09/15/222256) Pulses Left: Palpable;Post Tibial +;Radial + (09/15/222256) Edema: No (09/15/222256) Additional Cardiac Information: GI/: Additional GI/ Information: Integumentary: Skin Description: Dry;Warm (09/15/222256) Skin Color: Flesh Tone (09/15/222256) Additional Integumentary Information: Restraints: No orders of the defined types were placed in this encounter. Lines: Peripheral Line Left;Lower Arm 18 Gauge (Active) Status Flushes easily;Capped/Locked 09/15/222250 Tubing Changed N/A 09/15/222250 Phlebitis Scale 0 09/15/222250 Infiltration Scale 0 09/15/222250 Site Description (Other) Without redness, swelling or drainage 09/15/222250 Site Intervention Flushed 09/15/222250 Dressing Assessment Dressing clean, dry, and intact;Transparent dressing 09/15/222250 Dressing Intervention Applied 09/15/222250 Number of days: 1 Labs: Labs This Encounter COMPREHENSIVE METABOLIC PANEL - Abnormal; Notable for the following components: Result Value Ref Range BUN 24 6 - 20 mg/dL Creatinine 1.7 0.5 - 1.0 mg/dL Estimated Glomerular Filtration Rate 31 >=60 mL/min Chloride 97 98 - 107 mmol/L Glucose 151 70 - 120 mg/dL All other components within normal limits TROPONIN T, HIGH SENSITIVITY - Abnormal; Notable for the following components: Troponin T, High Sensitivity 37 <=14 ng/L All other components within normal limits CBC - Abnormal; Notable for the following components: HGB 11.1 12.0 - 15.3 g/dL HCT 34.6 36.0 - 45.2 % All other components within normal limits TROPONIN T, HIGH SENSITIVITY - Abnormal; Notable for the following components: Troponin T, High Sensitivity 39 <=14 ng/L All other components within normal limits DIFFERENTIAL, AUTOMATED - Normal SARS-COV-2 (COVID-19), NAAT - Normal EXTRA LIGHT BLUE TOP CBC WITH WBC DIFFERENTIAL Narrative: The following orders were created for panel order CBC WITH WBC DIFFERENTIAL. Procedure Abnormality Status --------- ------ CBC[[id number]] Abnormal Final result DIFFERENTIAL, AUTOMATED[[id number]] Normal Final result Please view results for these tests on the individual orders. GLUCOSE METER, POINT OF CARE (COMMUNICATION ORDER) GLUCOSE METER, POINT OF CARE (COMMUNICATION ORDER) GLUCOSE METER, POINT OF CARE (COMMUNICATION ORDER) GLUCOSE METER, POINT OF CARE (COMMUNICATION ORDER) GLUCOSE METER, POINT OF CARE (COMMUNICATION ORDER) GLUCOSE METER, POINT OF CARE (COMMUNICATION ORDER) GLUCOSE METER, POINT OF CARE (COMMUNICATION ORDER) GLUCOSE METER, POINT OF CARE (COMMUNICATION ORDER) Diet: Orders Placed This Encounter Procedures Heart Healthy Consistent Carbohydrate Diet : Sodium: 2 gm --- Number of Choices: 4 (60 grams) --- Fluid Restriction (ml): None Additional Diet Information: Intake and Output: No intake or output data in the 24 hours ending 09/16/22349 Patient Belongings and Home Medications Patient Belongings at Bedside Belongings at Bedside: Clothing (09/15/222255) Clothing: Shirt;Bra (09/15/222255) Patient Belongings Sent Home (Does not apply to Ambulatory areas) Belongings Sent Home: None (09/15/222255) Patient Belongings Sent to Safe/Locker Belongings Sent to Safe: None (09/15/222255) Patient Medications Medications Brought by Patient?: No (09/15/222255) Recommendations/Follow up Goals/Plan of Care: Consults not completed: Anticipated tests/studies/procedures: Medication Reconcilliation completed for this Admission? No * ED Quilt Sewer Note - Tayla Perry RN - 09/16/2022 2:06 AM EDT Patient feels better, would like to go home. * ED Quilt Sewer Note - Devan Joe RN - 09/15/2022 10:57 PM EDT Pt states she was seen in ED 3 days ago and admitted overnight for chest pain. Pt states that this pain feels same as the pain did a few days ago. Pt states that she had some numbness in her left middle finger at one point with the pain. Pt also states that she gets anxiety attacks and states that this episode felt as such. IV started, blood drawn and sent to lab. CCM on and showing NSR. Pt denies any current needs. Call bhakta is within reach. documented in this encounter Plan of Treatment Upcoming Encounters Date Type Specialty Care Team Description 09/20/2022 Office Visit Family Medicine Cherelle Hinojosa CRNP [address] [place] [id number] 09/22/2022 Office Visit Cardiology Cindy Salas CRNP [address] [place] [address] [place] [phone] 11/02/2022 Office Visit Family Medicine Mahogany Moncada CRNP [address] [id number] Health Maintenance Due Date Last Done Comments [...] Additional history exists CKD PHOS USE SMARTSET 45729 09/14/202308/16, 03/19/2022, 10/21/2021 CKD HGB USE SMARTSET 39576 09/16/202309/15, 09/15/2022, 09/13/2022, Additional history exists DXA [...] Procedure Name Priority Date/Time Associated Diagnosis Comments GLUCOSE METER, POINT OF CARE ALFONSO 09/16/2022 11:26 AM EDT GLUCOSE METER, POINT OF CARE ALFONSO 09/16/2022 7:39 AM EDT SARS-COV-2 (COVID-19), NAAT STAT 09/16/2022 3:02 AM EDT TROPONIN T, HIGH SENSITIVITY STAT 09/16/2022 12:19 AM EDT XR CHEST 2 VIEWS STAT 09/15/2022 11:1 8 PM EDT EXTRA LIGHT BLUE TOP Routine 09/15/2022 10:50 PM EDT DIFFERENTIAL, AUTOMATED STAT 09/15/2022 10:50 PM EDT TROPONIN T, HIGH SENSITIVITY STAT 09/15/2022 10:50 PM EDT COMPREHENSIVE METABOLIC PANEL STAT 09/15/2022 10:50 PM EDT CBC WITH WBC DIFFERENTIAL STAT 09/15/2022 10:50 PM EDT CBC STAT 09/15/2022 10:50 PM EDT documented in this encounter Results * (ABNORMAL) GLUCOSE METER, POINT OF CARE (09/16/2022 11:26 AM EDT) [facility] Glucose Meter 135(H) 70 - 120 mg/dL 09/16/2022 11:41 AM EDT [facility] Blood Whole blood specimen / Unknown 09/16/2022 11:26 AM EDT 09/16/2022 11:41 AM EDT Estevan Guzman MD LAB POINT OF CARE T EST DOCKED DEVICE UNSOLICITED RESULTS [facility] [address] [place] [address] * (ABNORMAL) GLUCOSE METER, POINT OF CARE (09/16/2022 7:39 AM EDT) Glucose Meter 121(H) 70 - 120 mg/dL 09/16/2022 8:21 AM EDT [facility] Blood Whole blood specimen / Unknown 09/16/2022 7:39 AM EDT 09/16/2022 8:21 AM EDT Estevan Guzman MD LAB POINT OF CARE T EST DOCKED DEVICE UNSOLICITED RESULTS [facility] [address] [place] [address] * SARS-COV-2 (COVID-19), NAAT (09/16/2022 3:02 AM EDT) SARS-CoV-2 (COVID-19) Result Negative Negative 09/16/2022 3:[address] [facility] Comment: 2019 Novel Coronavirus not detected. This express test was developed and its performance characteristics determined by [facility]. It has not been cleared or approved by the U.S. Food and Drug Administration (FDA). FDA does not require this test to go thru premarket FDA review. This test is used for clinical purposes. It should not be regarded as investigational or for research. This laboratory is certified under the Clinical Laboratory Improvement Amendments (CLIA) as qualified to perform high complexity clinical laboratory testing. This test is a nucleic acid amplification test (NAAT), a reverse transcriptase polymerase chain reaction (RT-PCR) test, or a Centers for Disease Control- acceptable equivalent. The test is performed in a high complexity Clinical Laboratory Improvement Amendments-(CLIA) certified laboratory. The test is acceptable for SARS-CoV-2 diagnosis, surveillance, and travel within the [place] and to most countries. Please check with local testing authorities about requirements before travel. The validation of bronchial specimens, tracheal aspirates, and sputum for this assay was developed and performance characteristics determined by [facility]. The validation of alternate specimen types has not been cleared or approved by the U.S. Food and Drug Administration (FDA). It has been determined that such clearance is not necessary. Upper Respiratory Mid-turbinate nasal swab / Unknown Non-blood Collection / Unknown 09/16/2022 3:02 AM EDT 09/16/2022 3:05 AM EDT Darron Solis MD LAB MICRO - GEN ERAL ORDERABLES Performing Organization Address [facility] Co de Phone Number LABORATORY [facility] [address] [place] [address] * (ABNORMAL) TROPONIN T, HIGH SENSITIVITY (09/16/2022 12:19 AM EDT) Troponin T, High Sensitivity 39(H) <=14 ng/L 09/16/2022 12:[address] [facility] Blood Venous blood specimen / Unknown Venipuncture / Unknown 09/16/2022 12:19 AM EDT 09/16/2022 12:22 AM EDT Darron Solis MD LAB BLOOD ORDER JEREMY Performing Organization Address [facility] de Phone Number LABORATORY [address] [address] * XR CHEST 2 VIEWS (09/15/2022 11:18 PM EDT) Anatomical Region Laterality Modality Chest Digital Radiogra phy 09/15/2022 11:1 2 PM EDT Impressions 09/15/2022 11:32 PM EDT IMPRESSION: 1. Moderate cardiomegaly is similar. Mild central vascular congestion, improved. 2. Pulmonary hyperinflation without airspace disease, also similar. THIS DOCUMENT HAS BEEN ELECTRONICALLY SIGNED BY SALUD JUAREZ MD Narrative 09/15/2022 11:32 PM EDT PROCEDURE INFORMATION: Exam: XR Chest Exam date and time: 09/15/2022 11:12 PM Age: 77 years old Clinical indication: Other: Chest pain TECHNIQUE: Imaging protocol: Radiologic exam of the chest. Views: 2 views. COMPARISON: DX XR CHEST 2 VIEWS 09/12/2022 11:01 PM FINDINGS: Tubes, catheters and devices: Aortic valvular prosthesis in the expected position. Lungs: Pulmonary hyperinflation without airspace disease, also similar. Pleural spaces: No pleural effusion. No pneumothorax. Heart/Mediastinum: Moderate cardiomegaly is similar. Mild central vascular congestion, improved. Bones/joints: Median sternotomy wires. No displaced fracture. Intraperitoneal space: Right upper quadrant clips, probable cholecystectomy. Procedure Note Salud Juarez MD - 09/15/2022 PROCEDURE INFORMATION: Exam: XR Chest Exam date and time: 09/15/2022 11:12 PM Age: 77 years old Clinical indication: Other: Chest pain TECHNIQUE: Imaging protocol: Radiologic exam of the chest. Views: 2 views. COMPARISON: DX XR CHEST 2 VIEWS 09/12/2022 11:01 PM FINDINGS: Tubes, catheters and devices: Aortic valvular prosthesis in the expected position. Lungs: Pulmonary hyperinflation without airspace disease, also similar. Pleural spaces: No pleural effusion. No pneumothorax. Heart/Mediastinum: Moderate cardiomegaly is similar. Mild central vascular congestion, improved. Bones/joints: Median sternotomy wires. No displaced fracture. Intraperitoneal space: Right upper quadrant clips, probablecholecystectomy. IMPRESSION IMPRESSION: 1. Moderate cardiomegaly is similar. Mild central vascular congestion, improved. 2. Pulmonary hyperinflation without airspace disease, also similar. THIS DOCUMENT HAS BEEN ELECTRONICALLY SIGNED BY SALUD JUAREZ MD Darron Solis MD RADIOLOGY ([facility]) * DIFFERENTIAL, AUTOMATED (09/15/2022 10:50 PM EDT) WBC 10.31 4.00 - 10.80 K/uL 09/15/2022 10:59 PM EDT LABORATORY [facility] Neutrophils % 67.8 40.0 - 75.0 % 09/15/2022 10:59 PM EDT LABORATORY [facility] Lymphocytes % 22.2 18.0 - 42.0 % 09/15/2022 10:59 PM EDT LABORATORY [facility] Monocytes % 7.2 1.0 - 11.0 % 09/15/2022 10:59 PM EDT LAB[facility]ATORY [facility] Eosinophils % 2.1 0.0 - 6.0 % 09/15/2022 10:59 PM EDT LAB[facility]ATORY [facility] Basophils % 0.5 0.0 - 2.0 % 09/15/2022 10:59 PM EDT LAB[facility]ATORY [facility] Immature Granulocytes % 0.2 0.0 - 2.0 % 09/15/2022 10:59 PM EDT LABORATORY GL Absolute Neutrophils 6.99 1.80 - 7.70 K/uL 09/15/2022 10:59 PM EDT LABORATORY GL Absolute Lymphocytes 2.29 1.00 - 4.80 K/ul 09/15/2022 10:59 PM EDT LABORATORY GL Absolute Monocytes 0.74 0.00 - 1.10 K/uL 09/15/2022 10:59 PM EDT LABORATORY GL Absolute Eosinophils 0.22 0.00 - 0.70 K/uL 09/15/2022 10:59 PM EDT LABORATORY GL Absolute Basophils 0.05 0.00 - 0.20 K/uL 09/15/2022 10:59 PM EDT LABORATORY GL Absolute Immature Granulocytes 0.02 0.00 - 0.20 K/uL 09/15/2022 10:[address] [facility] Blood Venous blood specimen / Unknown Venipuncture / Unknown 09/15/2022 10:50 PM EDT 09/15/2022 10:56 PM EDT Darron Solis MD LAB BLOOD ORDER JEREMY LABORATORY [address] [address] * (ABNORMAL) CBC (09/15/2022 10:50 PM EDT) WBC 10.31 4.00 - 10.80 K/uL 09/15/2022 10:59 PM EDT LABORATORY GL RBC 4.06 3.85 - 5.15 M/uL 09/15/2022 10:59 PM EDT LABORATORY GL HGB 11.1(L) 12.0 - 15.3 g/dL 09/15/2022 10:59 PM EDT LABORATORY GL HCT 34.6(L) 36.0 - 45.2 % 09/15/2022 10:[address] [facility] MCV 85.2 81.5 - 97.5 fL 09/15/2022 10:59 PM EDT LABORATORY GL MCH 27.3 27.0 - 34.0 pg 09/15/2022 10:[address] [facility] MCHC 32.1 32.0 - 36.0 g/dL 09/15/2022 10:[address] [facility] RDW 14.1 11.5 - 15.5 % 09/15/2022 10:[address] [facility] PLT 296 140 - 400 K/uL 09/15/2022 10:[address] [facility] MPV 10.4 6.6 - 11.1 fL 09/15/2022 10:[address] [facility] nRBCs 0 <=0 /100 WBCs 09/15/2022 10:[address] [facility] Blood Venous blood specimen / Unknown Venipuncture / Unknown 09/15/2022 10:50 PM EDT 09/15/2022 10:56 PM EDT Darron Solis MD LAB BLOOD ORDER JEREMY Performing Organization Address City/[facility]/ZIP Co de Phone Number LABORATORY [address] [phone] * (ABNORMAL) TROPONIN T, HIGH SENSITIVITY (09/15/2022 10:50 PM EDT) [facility] Troponin T, High Sensitivity 37(H) <=14 ng/L 09/15/2022 11:[address] [facility] Blood Venous blood specimen / Unknown Venipuncture / Unknown 09/15/2022 10:50 PM EDT 09/15/2022 10:56 PM EDT Darron Solis MD LAB BLOOD ORDER JEREMY LABORATORY [address] [id number] * (ABNORMAL) COMPREHENSIVE METABOLIC PANEL (09/15/2022 10:50 PM EDT) Pathologist [facility] BUN 24(H) 6 - 20 mg/dL 09/15/2022 11:[address] [facility] Creatinine 1.7(H) 0.5 - 1.0 mg/dL 09/15/2022 11:22 PM EDT LABORATORY [facility] Estimated Glomerular Filtration Rate 31(L) >=60 mL/min 09/15/2022 11:22 PM EDT LABORATORY [facility] Comment:eGFR is calculated b ased on the CKD-EPI 2020 equation Sodium 137 135 - 146 mmol/L 09/15/2022 11:22 PM EDT LABORATORY [facility] Potassium 3.9 3.5 - 5.1 mmol/L 09/15/2022 11:22 PM EDT LAB[facility]ATORY [facility] Chloride 97(L) 98 - 107 mmol/L 09/15/2022 11:22 PM EDT LABORATORY [facility] CO2 28 22 - 32 mmol/L 09/15/2022 11:22 PM EDT LABORATORY [facility] Anion Gap 12 7 - 15 mmol/L 09/15/2022 11:22 PM EDT LAB[facility]ATORY [facility] Glucose 151(H) 70 - 120 mg/dL 09/15/2022 11:22 PM EDT LAB[facility]ATORY [facility] Albumin 4.3 3.8 - 5.0 g/dL 09/15/2022 11:22 PM EDT LABORATORY [facility] AST 23 10 - 35 U/L 09/15/2022 11:22 PM EDT LABORATORY [facility] Comment:Result may be falsel y elevated due to hemolysis. Alkaline Phosphatase 111 35 - 130 U/L 09/15/2022 11:22 PM EDT LABORATORY [facility] Bilirubin, Total 0.5 <=1.2 mg/dL 09/15/2022 11:22 PM EDT LABORATORY [facility] Calcium 10.2 8.4 - 10.2 mg/dL 09/15/2022 11:22 PM EDT LABORATORY [facility] Protein 7.6 6.0 - 8.3 g/dL 09/15/2022 11:22 PM EDT LABORATORY [facility] ALT 12 10 - 35 U/L 09/15/2022 11:22 PM EDT LABORATORY [facility] Blood Venous blood specimen / Unknown Venipuncture / Unknown 09/15/2022 10:50 PM EDT 09/15/2022 10:56 PM EDT Darron Solis MD LAB BLOOD ORDER JEREMY LABORATORY [facility] [address] [place] [address] * EXTRA LIGHT BLUE TOP (09/15/2022 10:50 PM EDT) Blood Venous blood specimen / Unknown Venipuncture / Unknown 09/15/2022 10:50 PM EDT 09/15/2022 10:57 PM EDT Darron Solis MD LAB BLOOD ORDER JEREMY LABORATORY [address] [place] [address] documented in this encounter Visit Diagnoses Diagnosis Other chest pain- Primary Chest pain Chest pain, unspecified Left bundle branch block Other left bundle branch block Elevated troponin Other abnormal blood chemistry Type 2 diabetes mellitus with hemoglobin A1c goal of less than 7.0% ([facility]) Severe obesity with body mass index (BMI) of 35.0 to 39.9 with serious comorbidity (HCC) MANDY (obstructive sleep apnea) Obstructive sleep apnea (adult) (pediatric) Chronic kidney disease, stage 3b (HCC) GERD (gastroesophageal reflux disease) Esophageal reflux Stress Other psychological or physical stress, not elsewhere classified documented in this encounter Administered Medications Inactive Administered Medications - up to 3 most recent administrations Medication Order MAR Action Action Date Dose Rate Site aspirin chew tab 81 mg 81 mg, Oral, ONCE, On 09/16/22 at 0045, For 1 dose Given 09/16/2022 12:16 AM EDT 81 mg aspirin enteric coated tab 81 mg 81 mg, Oral, Daily(AM), First dose (after last modification) on 09/16/22 at 0900, Until Discontinued Given 09/16/2022 9:10 AM EDT 81 mg Enoxaparin (Lovenox) inj 40 mg 40 mg, Subcutaneous, [id number], First dose (after last modification) on 09/16/22 at 1000, Until Discontinued, If patient is on warfarin, inform provider if daily INR value is 2 or greater! Given 09/16/2022 9:10 AM EDT 40 mg Abdomen Left Lower escitalopram (Lexapro) tab 10 mg 10 mg, Oral, Daily(AM), First dose (after last modification) on 09/16/22 at 0900, Until Discontinued Given 09/16/2022 9:10 AM EDT 10 mg Famotidine (Pepcid) tab 20 mg 20 mg, Oral, ONCE, On 09/16/22 at 0345, For 1 dose Given 09/16/2022 3:26 AM EDT 20 mg Famotidine (Pepcid) tab 20 mg 20 mg, Oral, Q12H, First dose on 09/16/22 at 0900, Until Discontinued Given 09/16/2022 9:10 AM EDT 20 mg Furosemide (Lasix) tab 40 mg 40 mg, Oral, Daily(AM), First dose (after last modification) on 09/16/22 at 0900, Until Discontinued Given 09/16/2022 9:10 AM EDT 40 mg metoprolol succinate XL (toPROL XL) tab 50 mg 50 mg, Oral, Daily(AM), First dose on 09/16/22 at 0900, Until Discontinued, Hold for HR less than 60 or SBP below 100 and notify service if dose is held This med should NOT be Crushed or Chewed. Given 09/16/2022 9:09 AM EDT 50 mg omeprazole (PriLOSEC) cap 20 mg 20 mg, Oral, Daily(AM), First dose (after last modification) on 09/16/22 at 0900, Until Discontinued, This med should NOT be Crushed or Chewed Given 09/16/2022 9:10 AM EDT 20 mg documented in this encounter Active and Recently Administered Medications Times are shown in EDT. Scheduled Medication Order 09/14/2022 09/15/2022 09/16/2022 aspirin chew tab 81 mg (COMPLETED) 81 mg, Oral, ONCE, On 09/16/22 at 0045, For 1 dose 0016 (Given - Provid er: Devan Joe, RN) aspirin enteric coated tab 81 mg 81 mg, Oral, Daily(AM), First dose (after last modification) on 09/16/22 at 0900, Until Discontinued 0910 (Given - Provid er: Renee Almonte RN) atorvaSTATin (Lipitor) tab 80 mg 80 mg, Oral, Q1700, First dose (after last modification) on 09/16/22 at 1700, Until Discontinued Enoxaparin (Lovenox) inj 40 mg 40 mg, Subcutaneous, [id number], First dose (after last modification) on 6/3/23 at 1000, Until Discontinued, If patient is on warfarin, inform provider if daily INR value is 2 or greater! 0910 (Given - Provid er: Renee Almonte RN) escitalopram (Lexapro) tab 10 mg 10 mg, Oral, Daily(AM), First dose (after last modification) on 09/16/22 at 0900, Until Discontinued 09 (Given - Provid er: Renee Almonte RN) Famotidine (Pepcid) tab 20 mg (COMPLETED) 20 mg, Oral, ONCE, On 09/16/22 at 0345, For 1 dose 0326 (Given - Provid er: Cassandra Borges RN) Famotidine (Pepcid) tab 20 mg 20 mg, Oral, Q12H, First dose on 09/16/22 at 0900, Until Discontinued 909 (Given - Provid er: Renee Almonte RN) Furosemide (Lasix) tab 40 mg 40 mg, Oral, Daily(AM), First dose (after last modification) on 09/16/22 at 0900, Until Discontinued 909 (Given - Provid er: Renee Almonte RN) insulin aspart (NovoLOG) inj Subcutaneous, W/MEALS AND HS, First dose (after last modification) on 09/16/22 at 0800, Until Discontinued, LOW DOSE (Elderly insulin sensitive patient): Sliding Scale Correctional insulin may be given if the patient is NPO. Dose based on standard build from Insulin Calculator. Do not modify insulin doses in administration instructions! , Glucose less than 70 instructions: Obtain STAT lab blood glucose and call covering provider., Glucose 80-150 (units): 0, Glucose 151-200 (units): 1, Glucose 201-250 (units): 2, Glucose 251-300 (units): 3, Glucose greater than 300 (units): 4, Glucose greater than 300 instructions: Give suggested insulin dose and call covering provider. 0800 (No Insulin - P rovider: Renee Almonte RN - Reason: Parameter(s) Not Met)1200 (No Insulin - Provider: Renee Almonte RN - Reason: Parameter(s) Not Met) Lisinopril (Prinivil) tab 40 mg 40 mg, Oral, Daily(AM), First dose (after last modification) on 09/16/22 at 1000, Until Discontinued 1000 (Not Given - Pr ovider: Renee Almonte RN - Reason: Other-Notify Provider - Comment: Hold per Dr. Guzman d/t BP of 101/55) metoprolol succinate XL (toPROL XL) tab 50 mg 50 mg, Oral, Daily(AM), First dose on 09/16/22 at 0900, Until Discontinued, Hold for HR less than 60 or SBP below 100 and notify service if dose is held This med should NOT be Crushed or Chewed. 09 (Given - Provid er: Renee Almonte, RN) omeprazole (PriLOSEC) cap 20 mg 20 mg, Oral, Daily(AM), First dose (after last modification) on 09/16/22 at 0900, Until Discontinued, This med should NOT be Crushed or Chewed 909 (Given - Provid er: Renee Almonte RN) PRN Medication Order 09/14/2022 09/15/2022 09/16/2022 Acetaminophen (Tylenol) tab 650 mg 650 mg, Oral, Q6H PRN Pain, Mild, Fever >38C(100.5F), Starting on 09/16/22 at 0332, Until 09/16/22 at 182, Maximum of 4 grams (4000 mg) per day. Albuterol Sulfate (Proventil) (2.5 MG/3ML) 0.083% inhalation solution 2.5 mg 2.5 mg, Nebulizer, Q4H PRN Dyspnea, Starting on 09/16/22 at 0332, Until 09/16/22 at 182 busPIRone (Buspar) tab 10 mg 10 mg, Oral, DAILY PRN Anxiety, Starting on 09/16/22 at 0332, Until 09/16/22 at 182 dextrose 50 % inj 25 mL 25 mL, IV Push, PRN Hypoglycemia, Other, For blood glucose 54 - 69 mg/dL or 70 - 100 mg/dL with symptoms AND patient is unresponsive, NPO, OR unable to swallow, Starting on 09/16/22 at 0332, Until 09/16/22 at 1822, Administer IV. Recheck blood glucose after 15 minutes. Notify provider. dextrose 50 % inj 50 mL 50 mL, IV Push, PRN Hypoglycemia, Other, For blood glucose below 54 mg/dL AND patient unresponsive, NPO, OR unable to swallow, Starting on 09/16/22 at 0332, Until 09/16/22 at 182, Administer IV. Recheck blood glucose in 15 minutes. Notify provider. glucagon (Glucagen) inj 1 mg 1 mg, Intramuscular, PRN Hypoglycemia, Other, If patient is unresponsive, or NPO and has no IV access, Starting on 09/16/22 at 0332, Until 09/16/22 at 1821, NPO and no IV access with either 1) blood glucose less than 100 mg/dL and symptomatic OR 2) blood glucose less than 70 mg/dL and asymptomatic Glucose (Glutose 15) 40 % gel 15 g of glucose 15 g of glucose, Oral, PRN Hypoglycemia (low sugar), Other, For blood glucose 54 - 69 mg/dL or 70 - 100 mg/dL with symptoms AND patient alert WITH difficulty chewing/swallowing, Starting on 09/16/22 at 0332, Until 09/16/22 at 1821, Administer gel. Recheck blood glucose after 15 minutes. Notify provider. 37.5 gram tube = 15 grams glucose = 1 each Glucose (Glutose 15) 40 % gel 30 g of glucose 30 g of glucose, Oral, PRN Hypoglycemia (low sugar), Other, For blood glucose below 54 mg/dL AND patient alert WITH difficulty chewing/swallowing, Starting on 09/16/22 at 0332, Until 09/16/22 at 1821, Administer gel. Recheck blood glucose after 15 minutes. Notify provider. 37.5 gram tube = 15 grams glucose = 1 each glucose chew tab 16 g 16 g, Oral, PRN Hypoglycemia, Other, For blood glucose 54 - 69 mg/dL or 70 - 100 mg/dL with symptoms and patient alert without difficulty chewing/swallowing., Starting on 09/16/22 at 0332, Until 09/16/22 at 182 house antacid (Mi-Acid II) oral susp 15 mL 15 mL, Oral, Q6H PRN Indigestion, Starting on 09/16/22 at 0334, Until 09/16/22 at 182, SHAKE WELL melatonin tab 3 mg 3 mg, Oral, HS PRN Insomnia, Starting on 09/16/22 at 0332, Until 09/16/22 at 182 Polyethylene Glycol 3350 (Miralax) oral powder 17 g 17 g (1 Packet), Oral, DAILY PRN Other, If constipation not relieved by senna, Starting on 09/16/22 at 0332, Until 09/16/22 at 182, Mix in 8 oz of water, juice, soda, coffee, or tea. senna (Senokot) 1 Tablet 1 Tablet, Oral, DAILY PRN Constipation, Starting on 09/16/22 at 0332, Until 09/16/22 at 182 sodium chloride 0.9 % flush/inj 3 mL 3 mL, IV Push, PRN Other, Line Patency, Starting on 09/16/22 at 0332, Until 09/16/22 at 182, Do not flush if lock, PICC, or central line not in place, IV infusing or unable to flush documented in this encounter Advance Directives Latest [...] the patient have Health Care Power of Optical Lab Technician? No Full Code 02/28/2021 8:35 AM 03/01/2021 8:18 PM Thi s order reflects the patients wishes and were consensually agreed upon. Question Answer Comments Discussion of Advance Directives occurred with: Patient Full Code 10/06/2020 12:41 AM 10/06/2020 9:21 PM This order reflects the patients wishes and were consensually agreed upon. Question Answer Comments Discussion of Advance Directives occurred with: Patient Care Teams Service Tech/Welder Relationship Specialty Start Date End Date Sunshine Gilbert MD [address] [place] [id number] PCP - General Family Medicine 06/01/21 documented as of this encounter
--- OUTSIDE RECORDS SUMMARY | 2022-12-17 03:23 | External Medical Summary | Summary of Care ---
Author Name Unknown Organization [facility] Address [address] [place] [address] Phone [phone] Care Team Providers Care Tierce Filler Name Role Phone Elías Jade MD Primary Care Provider [phone] [phone] Reason for Visit * Reason Onset Date Comments Med Request 09/14/2022 Encounter Details Date Type Department Care Team Description 09/14/2022 Telephone [facility] [address] [place] [address] Elías Jade MD [address] [place], [place] [id number] Med Request Allergies Active Allergy Reactions Severity [...] encounter Miscellaneous Notes * Telephone Encounter - Yandy Jiang CPhT - 09/14/2022 3:30 PM EDT Patient calling to check on status of Rx override lisinopril. Thank you, Yandy Jiang Rope Laying Machine Operator [facility] 09/14/2022, 3:30 PM * Telephone Encounter - YUAN Liu - 09/14/2022 12:35 PM EDT Pt called stating lisinopril was increased so pt threw away her other bottle because she was given a new script. Pt said pharmacy can not ene rx until 09/28. Advised pt to call insurance for an override. Thanks, Sheryl Clark Rope Laying Machine Operator Pharmacy Refill Call Center 09/14/2022,12:36 PM * Telephone Encounter - YUAN Stallings - 09/14/2022 12:04 PM EDT Pt calling to request Lisinopril and metoprolol . Informed pt that RX is available at their pharmacy. Pt verbalized understanding and stated they will check with their pharmacy regarding this medication. Thanks, Tyrell Nixon, t Rope Laying Machine Operator Pharmacy Refill Call Center 09/14/2022,12:05 PM documented in this encounter Plan of Treatment Upcoming Encounters Date Type Specialty Care Team Description 09/20/2022 Office Visit Family Medicine Cherelle Hinojosa CRNP [address] [id number] 11/02/2022 Office Visit Family Medicine Mahogany Moncada [...] Additional history exists CKD HGB USE SMARTSET 81405 09/14/202309/13, 09/12/2022, 09/12/2022, Additional history exists CKD PHOS USE SMARTSET 16378 09/14/202308/16, 03/19/2022, 10/21/2021 DXA Scan 03/11/2026 03/11/2019 [...] the patient have Health Care Power of Plumber Apprentice? No Full Code 02/28/2021 8:35 AM 03/01/2021 8:18 PM Thi s order reflects the patients wishes and were consensually agreed upon. Question Answer Comments Discussion of Advance Directives occurred with: Patient Full Code 10/06/2020 12:41 AM 10/06/2020 9:21 PM This order reflects the patients wishes and were consensually agreed upon. Question Answer Comments Discussion of Advance Directives occurred with: Patient Care Teams Tierce Filler Relationship Specialty Start Date End Date Elías Jade MD [address] [place] [id number] PCP - General Family Medicine 06/01/21 documented as of this encounter
--- OUTSIDE RECORDS SUMMARY | 2022-12-17 03:23 | External Medical Summary | Summary of Care ---
Author Name Unknown Organization [facility] Address [address] [place] [address] Phone [phone] Care Team Providers Care Lay Out Machine Operator Name Role Phone Elías Jade MD Primary Care Provider [phone] [phone] Reason for Visit * Reason Onset Date Comments Med Request 09/14/202209/14 NA, No VM Encounter Details Date Type Department Care Team Description 09/14/2022 Telephone [facility] [place] [address] Elías Jade MD [address] [employer] [place], [place] [phone] Med Request (09/14 NA, No VM) Allergies Active Allergy Reactions Severity Noted Date Comments Eggs Or Egg-Derived Products Diarrhea 021 documented as of this encounter (statuses as of 09/18/2022) Medications Medication Sig Dispensed Refills Start Date [...] morning. 30 Tablet 0 09/13/2022 3 Active Meclizine HCl 25 MG Oral Tablet (Antivert)Indica tions:Dizziness TAKE 1 TABLET NEEDED IN THE MORNING AND 1 TABLET NEEDED AT NOON AND 1 TABLET NEEDED IN THE EVENING FOR DIZZINESS 30 Tablet 1 10/31/2021 3 Discontinued Benzonatate 100 MG Oral Capsule (Tessalkatharine Rascon)Indicatio ns:Shortness of breath Take 1 Capsule by mouth 3 times a day as needed for Cough. Do not cut, crush, or chew. 50 Capsule 1 04/01/2022 3 Discontinued documented as of this encounter (statuses as of 09/18/2022) Active Problems Problem Noted Date GERD (gastroesophageal [...] as of this encounter (statuses as of 09/18/2022) Resolved Problems Problem Noted Date Resolved Date [...] as of this encounter (statuses as of 09/18/2022) Immunizations Name Administration Dates Next Due DTaP [...] Telephone Encounter - Rebecca Shafer CMA - 09/18/2022 12:54 PM EDT Pt aware of below message and verbalizes understanding. Pt picked up prescription already * Telephone Encounter - Barbara Westbrook LPN [...] Elías Jade MD, PAULA Family Physician João Coyle * Telephone Encounter - Yandy Jiang CPhT - 09/14/2022 3:30 PM EDT Patient calling to check on status of Rx override lisinopril. Thank you, Yandy Jiang Dolly Pusher [facility] 09/14/2022, 3:30 PM * Telephone Encounter - SherylYUAN Milton - 09/14/2022 12:35 PM EDT Pt called stating lisinopril was increased so pt threw away her other bottle because she was given a new script. Pt said pharmacy can not ene rx until 09/28. Advised pt to call insurance for an override. Thanks, Sheryl Clark Dolly Pusher Pharmacy Refill Call Center 09/14/2022,12:36 PM * Telephone Encounter - YUAN Stallings - 09/14/2022 12:04 PM EDT Pt calling to request Lisinopril and metoprolol . Informed pt that RX is available at their pharmacy. Pt verbalized understanding and stated they will check with their pharmacy regarding this medication. Thanks, Tyrell Nixon, lore Dolly Pusher Pharmacy Refill Call Center 09/14/2022,12:05 PM documented in this encounter Plan of Treatment Upcoming Encounters Date Type Specialty Care Team Description 09/20/2022 Office Visit Family Medicine Cherelle Hinojosa CRNP [address] [address] 09/22/2022 Office Visit Cardiology Cindy Salas CRNP [address] [place] [address] [address] [place] [phone] 11/02/2022 Office Visit Family Medicine Mahogany Moncada CRNP [address] [address] Health Maintenance Due Date Last Done Comments [...] Additional history exists CKD PHOS USE SMARTSET 12176 09/14/202308/16, 03/19/2022, 10/21/2021 CKD HGB USE SMARTSET 91932 09/16/202309/15, 09/15/2022, 09/13/2022, Additional history exists DXA [...] the patient have Health Care Power of Land Commissioner? No Full Code 02/28/2021 8:35 AM 03/01/2021 8:18 PM Thi s order reflects the patients wishes and were consensually agreed upon. Question Answer Comments Discussion of Advance Directives occurred with: Patient Full Code 10/06/2020 12:41 AM 10/06/2020 9:21 PM This order reflects the patients wishes and were consensually agreed upon. Question Answer Comments Discussion of Advance Directives occurred with: Patient Care Teams Lay Out Machine Operator Relationship Specialty Start Date End Date Elías Jade MD [facility] [address] [place] [address] PCP - General Family Medicine 06/01/21 documented as of this encounter
--- OUTSIDE RECORDS SUMMARY | 2022-12-17 03:23 | External Medical Summary ---
Author Name Unknown Address Unknown Organization K1F:LABORATORY [facility] - [address] [address] Laboratory Report Ordering Provider Test Date Status LILIA LANCASTER 09/15/2022 22:50:32 Final Observation Date Value Abnormality Reference (Units ) Status BUN 09/15/2022 22:50:32 24 Above high normal 6-20 (mg/dL) Final Creatinine 09/15/2022 22:50:32 1.7 Above high normal 0.5-1.0 (mg/dL) Final Glomerular filtration rate/1.73 sq M.predicted [Volume Rate/Area] in Serum, Plasma or Blood by Creatinine-based formula (CKD-EPI) 09/15/2022 22:50:32 31 Below low normal >=60 (mL/min) Final Performing Location LABORATORY [facility] - [address] [address]
--- OUTSIDE RECORDS SUMMARY | 2022-12-17 03:23 | External Medical Summary | Summary of Care ---
Author Name Unknown Organization [facility] Address [address] [place] [address] Phone [phone] Care Team Providers Care Tracing Lathe Set Up Operator Name Role Phone Elías Jade MD Primary Care Provider [phone] [phone] Reason for Visit * Reason Onset Date Comments Hospital Follow-Up 09/18/2022 Encounter Details Date Type Department Care Team Description 09/18/2022 Telephone Ancillary 1st Floor, [address] [address] Sharon Parsons RN Hospital Follow-Up Allergies Active Allergy Reactions Severity Noted Date Comments Eggs Or Egg-Derived Products Diarrhea 021 documented as of this encounter (statuses as of 09/19/2022) Medications Medication Sig Dispensed Refills Start Date [...] as of this encounter (statuses as of 09/19/2022) Active Problems Problem Noted Date GERD (gastroesophageal [...] as of this encounter (statuses as of 09/19/2022) Resolved Problems Problem Noted Date Resolved Date [...] as of this encounter (statuses as of 09/19/2022) Immunizations Name Administration Dates Next Due DTaP [...] Telephone Encounter - Sharon Parsons RN - 09/19/2022 9:47 AM EDT Transitions of Care Note Reason for Referral:Recent Admission Phone visit for follow up: inpatient hospitalization Admitted to: [facility], Date: 09/15/22 Discharged to: home, Date: 09/16/22 Diagnosis driving hospitalization: other chest pain Telephone call made to patient's number. No answer. Message that voicemail box has not been set up yet. Unable to leave a message. Sharon Parsons RN * Telephone Encounter - Sharon Parsons RN - 09/18/2022 2:13 PM EDT Transitions of Care Note Reason for Referral:Recent Admission Phone visit for follow up: inpatient hospitalization Admitted to: [facility], Date: 09/15/22 Discharged to: home, Date: 09/16/22 Diagnosis driving hospitalization: other chest pain Telephone call made to patient's number. No answer. Message that voicemail box has not been set up yet. Unable to leave a message. Sharon Parsons RN documented in this encounter Plan of Treatment Upcoming Encounters Date Type Specialty Care Team Description 11/02/2022 Office Visit Family Medicine Mahogany Moncada CRNP [address] [facility] [address] [place] [address] Health Maintenance Due Date Last Done Comments [...] Additional history exists CKD PHOS USE SMARTSET 32092 09/14/202308/16, 03/19/2022, 10/21/2021 CKD HGB USE SMARTSET 22714 09/16/202309/15, 09/15/2022, 09/13/2022, Additional history exists DXA [...] the patient have Health Care Power of Content Management Specialist? No Full Code 02/28/2021 8:35 AM 03/01/2021 8:18 PM Thi s order reflects the patients wishes and were consensually agreed upon. Question Answer Comments Discussion of Advance Directives occurred with: Patient Full Code 10/06/2020 12:41 AM 10/06/2020 9:21 PM This order reflects the patients wishes and were consensually agreed upon. Question Answer Comments Discussion of Advance Directives occurred with: Patient Care Teams Tracing Lathe Set Up Operator Relationship Specialty Start Date End Date Elías Jade MD [facility] [address] [place] [address] PCP - General Family Medicine 06/01/21 documented as of this encounter
--- OUTSIDE RECORDS SUMMARY | 2022-12-17 03:23 | External Medical Summary | Summary of Care ---
Author Name Unknown Organization [facility] Address [address] [place] [address] Phone [phone] Care Team Providers Care Head Transfer Clerk Name Role Phone Elías Jade MD Primary Care Provider [phone] [phone] Encounter Details Date Type Department Care Team Description 09/18/2022 Result Scan Unspecified Department <No scans attached> Allergies Active Allergy Reactions Severity Noted Date Comments Eggs Or Egg-Derived Products Diarrhea 021 documented as of this encounter (statuses as of 09/21/2022) Medications Medication Sig Dispensed Refills Start Date [...] as of this encounter (statuses as of 09/21/2022) Active Problems Problem Noted Date GERD (gastroesophageal [...] as of this encounter (statuses as of 09/21/2022) Resolved Problems Problem Noted Date Resolved Date [...] as of this encounter (statuses as of 09/21/2022) Immunizations Name Administration Dates Next Due DTaP [...] Medicine Mahogany Moncada CRNP [address] [address] Health Maintenance Due Date Last Done Comments COVID-19 Vaccine (#1) 1945 Hepatitis C Screening 1962 Zoster Vaccines (1 of 2) 1994 Albumin/Creatinine Ratio 04/01/2022 021, 07/16/2020, 06/06/2019 DIABETES-EYE EXAM 10/18/2022 10/18/2021, , 06/30/2019 DIABETES-FOOT EXAM 10/21/2022 10/21/2021, 0 07/16/2020, 07/15/2019 Depression Screening, Annual for Pts 12 and Over 10/21/2022 10/21/2021 Influenza Vaccine (FLU shot) (Season Ended) 2022 07/15/2019, 02/22/2016, 03/08/2015 HbA1c 03/15/2023 09/13/2022, 0711/2021, 02/28/2021, Additional history exists GFR 03/17/2023 09/15/2022, 08/16, 09/12/2022, Additional history exists CKD PHOS USE SMARTSET 57479 09/14/202308/16, 03/19/2022, 10/21/2021 CKD HGB USE SMARTSET 61673 09/16/202309/15, 09/15/2022, 09/13/2022, Additional history exists DXA [...] Date/Time Associated Diagnosis Comments RADIOLOGY SCANNED RESULT 09/18/2022 documented in this encounter Results * RADIOLOGY SCANNED RESULT (09/18/2022) 09/18/2022 No Physician Data Unknown DIAGNOSTIC RAD IOLOGY [...] the patient have Health Care Power of Offset Platemaker? No Full Code 02/28/2021 8:35 AM 03/01/2021 8:18 PM Thi s order reflects the patients wishes and were consensually agreed upon. Question Answer Comments Discussion of Advance Directives occurred with: Patient Full Code 10/06/2020 12:41 AM 10/06/2020 9:21 PM This order reflects the patients wishes and were consensually agreed upon. Question Answer Comments Discussion of Advance Directives occurred with: Patient Care Teams Head Transfer Clerk Relationship Specialty Start Date End Date Elías Jade MD [facility] [address] [place] [address] PCP - General Family Medicine 06/01/21 documented as of this encounter
--- OUTSIDE RECORDS SUMMARY | 2022-12-17 03:23 | External Medical Summary ---
Author Name Unknown Address Unknown Organization K1F:LABORATORY [facility] - [address] [address] Laboratory Report Ordering Provider Test Date Status LILIA LANCASTER 09/15/2022 22:50:32 Final Observation Date Value Abnormality Reference (Units ) Status Troponin T 09/15/2022 22:50:32 37 Above high normal < =14 (ng/L) Final Performing Location LABORATORY [facility] - [address] [address]
--- OUTSIDE RECORDS SUMMARY | 2022-12-17 03:24 | External Medical Summary ---
Author Name Unknown Address Unknown Organization K1F:LABORATORY [facility] - [address] [address] Laboratory Report Ordering Provider Test Date Status CARA LU 09/13/2022 05:21:00 Final Observation Date Value Abnormality Reference (Units ) Status WBC, Total 09/13/2022 05:21:00 6.80 4.00-10.80 (K/uL) Final RBC 09/13/2022 05:21:00 3.50 3.85-5.15 (M/uL) Final Hemoglobin 09/13/2022 05:21:00 9.3 Below low normal 12.0-15.3 (g/dL) Final HCT 09/13/2022 05:21:00 29.9 Below low normal 36.0-45.2 (%) Final MCV 09/13/2022 05:21:00 85.4 81.5-97.5 (fL) Final MCH 09/13/2022 05:21:00 26.6 27.0-34.0 (pg) Final MCHC 09/13/2022 05:21:00 31.1 32.0-36.0 (g/dL) Final RDW 09/13/2022 05:21:00 14.3 11.5-15.5 (%) Final Platelets 09/13/2022 05:21:00 226 140-400 (K/uL) Final MPV 09/13/2022 05:21:00 10.5 6.6-11.1 (fL) Final Nucleated erythrocytes/100 leukocytes [Ratio] in Blood by Automated count 09/13/2022 05:21:00 0 <=0 (/100 WBCs) Final Performing Location LABORATORY [facility] - [address] [address]
--- OUTSIDE RECORDS SUMMARY | 2022-12-17 03:24 | External Medical Summary ---
Author Name Unknown Address Unknown Organization K01:LABORATORY [facility] - [address] [place] [address] Laboratory Report Ordering Provider Test Date Status CARA LU 09/13/2022 05:21:00 Final Observation Date Value Abnormality Reference (Units ) Status HbA1C 09/13/2022 05:21:00 7.2 Above high normal 4. 0-5.6 (%) Final Performing Location LABORATORY C - [address] [place] [address]
--- OUTSIDE RECORDS SUMMARY | 2022-12-17 03:24 | External Medical Summary | Summary of Care ---
Author Name Unknown Organization [facility] Address [address] [place] [address] Phone [phone] Care Team Providers Care Industrial Relations Manager Name Role Phone Elías Jade MD Primary Care Provider [phone] -[phone] Reason for Visit * Reason Onset Date Comments Med Request 09/14/2022 Encounter Details Date Type Department Care Team Description 09/14/2022 Telephone [facility] [place] [address] Elías Jade MD [address] [place], [place] [phone] Med Request Allergies Active Allergy Reactions Severity [...] encounter Miscellaneous Notes * Telephone Encounter - YUAN Stallings - 09/14/2022 12:04 PM EDT Pt calling to request Lisinopril and metoprolol . Informed pt that RX is available at their pharmacy. Pt verbalized understanding and stated they will check with their pharmacy regarding this medication. Thanks, Tyrell Nixon Pht Head Of Digital Advertising & Integration Pharmacy Refill Call Center 09/14/2022,12:05 PM documented in this encounter Plan of Treatment Upcoming Encounters Date Type Specialty Care Team Description 11/02/2022 Office Visit Family Medicine Mahogany Moncada CRNP 21 [facility] [address] [place] [phone] Health Maintenance Due Date Last Done Comments [...] Additional history exists CKD HGB USE SMARTSET 34339 09/14/2023 05/31 /2023, 09/12/2022, 09/12/2022, Additional history exists CKD PHOS USE SMARTSET 56388 09/14/2023 05/04/2022, 03/19/2022, 10/21/2021 DXA Scan 03/11/2026 03/11/2019 DTaP,Tdap,and [...] the patient have Health Care Power of Director Strategy? No Full Code 02/28/2021 8:35 AM 03/01/2021 8:18 PM Thi s order reflects the patients wishes and were consensually agreed upon. Question Answer Comments Discussion of Advance Directives occurred with: Patient Full Code 10/06/2020 12:41 AM 10/06/2020 9:21 PM This order reflects the patients wishes and were consensually agreed upon. Question Answer Comments Discussion of Advance Directives occurred with: Patient Care Teams Industrial Relations Manager Relationship Specialty Start Date End Date Elías Jade MD [facility] [address] [place] [address] PCP - General Family Medicine 06/01/21 documented as of this encounter
--- OUTSIDE RECORDS SUMMARY | 2022-12-17 03:24 | External Medical Summary ---
Author Name Unknown Address Unknown Organization K1F:LABORATORY [facility] - [address] [address] Laboratory Report Ordering Provider Test Date Status CARA LU 09/13/2022 05:21:00 Final Observation Date Value Abnormality Reference (Units ) Status Magnesium 09/13/2022 05:21:00 1.6 1.5-2.6 (m g/dL) Final Performing Location LABORATORY [facility] - [address] [address]
--- OUTSIDE RECORDS SUMMARY | 2022-12-17 03:24 | External Medical Summary | Summary of Care ---
Author Name Unknown Organization [facility] Address [address] [place] [address] Phone [phone] Care Team Providers Care Chiropractic Doctor Name Role Phone Elías Jade MD Primary Care Provider [phone] [phone] Reason for Visit * Reason Onset Date Comments Med Request 09/14/2022 Encounter Details Date Type Department Care Team Description 09/14/2022 Telephone [facility] [address] [email or web address] [facility] [facility] [place] [address] Elías Jaed MD [address] [email or web address] [facility] [facility], [place] [phone] Med Request Allergies Active Allergy Reactions Severity [...] Miscellaneous Notes * Telephone Encounter - YUAN Liu - 09/14/2022 12:35 PM EDT Pt called stating lisinopril was increased so pt threw away her other bottle because she was given a new script. Pt said pharmacy can not ene rx until 09/28. Advised pt to call insurance for an override. Thanks, Sheryl Clark Cipher Expert Pharmacy Refill Call Center 09/14/2022,12:36 PM * Telephone Encounter - YUAN Stallings - 09/14/2022 12:04 PM EDT Pt calling to request Lisinopril and metoprolol . Informed pt that RX is available at their pharmacy. Pt verbalized understanding and stated they will check with their pharmacy regarding this medication. Thanks, Tyrell Nixon, t [facility] Expert Pharmacy Refill Call Center 09/14/2022,12:05 PM documented in this encounter Plan of Treatment Upcoming Encounters Date Type Specialty Care Team Description 11/02/2022 Office Visit Family Medicine Mahogany Moncada CRNP 21 [facility] [address] [place] [id number] Health Maintenance Due Date Last Done Comments [...] Additional history exists CKD HGB USE SMARTSET 16737 09/14/202309/13, 09/12/2022, 09/12/2022, Additional history exists CKD PHOS USE SMARTSET 21900 09/14/202308/16, 03/19/2022, 10/21/2021 DXA Scan 03/11/2026 03/11/2019 [...] the patient have Health Care Power of Residential Monitor? No Full Code 02/28/2021 8:35 AM 03/01/2021 8:18 PM Thi s order reflects the patients wishes and were consensually agreed upon. Question Answer Comments Discussion of Advance Directives occurred with: Patient Full Code 10/06/2020 12:41 AM 10/06/2020 9:21 PM This order reflects the patients wishes and were consensually agreed upon. Question Answer Comments Discussion of Advance Directives occurred with: Patient Care Teams Chiropractic Doctor Relationship Specialty Start Date End Date Elías Jade MD [address] [address] PCP - General Family Medicine 06/01/21 documented as of this encounter
--- OUTSIDE RECORDS SUMMARY | 2022-12-17 03:24 | External Medical Summary ---
Author Name Unknown Address Unknown Organization K1F:LABORATORY [facility] - [address] [address] Laboratory Report Ordering Provider Test Date Status CARA LU 09/13/2022 05:21:00 Final Observation Date Value Abnormality Reference (Units ) Status Troponin T 09/13/2022 05:21:00 32 Above high normal < =14 (ng/L) Final Performing Location LABORATORY [facility] - [address] [address]
--- OUTSIDE RECORDS SUMMARY | 2022-12-17 03:24 | External Medical Summary ---
Author Name Unknown Address Unknown Organization K1F:LABORATORY [facility] - [address] [address] Laboratory Report Ordering Provider Test Date Status LAM HENRY 09/12/2022 23:15:00 Final Observation Date Value Abnormality Reference (Units ) Status BUN 09/12/2022 23:15:00 16 6-20 (mg/dL) Final Creatinine 09/12/2022 23:15:00 1.4 Above high normal 0.5-1.0 (mg/dL) Final Glomerular filtration rate/1.73 sq M.predicted [Volume Rate/Area] in Serum, Plasma or Blood by Creatinine-based formula (CKD-EPI) 09/12/2022 23:15:00 39 Below low normal >=60 (mL/min) Final Performing Location LABORATORY [facility] - [address] [address]
--- OUTSIDE RECORDS SUMMARY | 2022-12-17 03:24 | External Medical Summary ---
Author Name Unknown Address Unknown Organization K1F:LABORATORY [facility] - [address] [address] Laboratory Report Ordering Provider Test Date Status LAM HENRY 09/12/2022 23:15:00 Final Observation Date Value Abnormality Reference (Units ) Status Troponin T 09/12/2022 23:15:00 28 Above high normal < =14 (ng/L) Final Performing Location LABORATORY [facility] - [address] [address]
--- OUTSIDE RECORDS SUMMARY | 2022-12-17 03:24 | External Medical Summary ---
Author Name Unknown Address Unknown Organization K1F:LABORATORY [facility] [address] [facility] [place] [address] Laboratory Report Ordering Provider Test Date Status LAM HENRY 09/13/2022 01:06:22 Final Observation Date Value Abnormality Reference (Units ) Status Adenovirus DNA [Presence] in Nasopharynx by ROBBI with non-probe detection 09/13/2022 01:06:22 Negative Negative Final Human coronavirus 229E RNA [Presence] in Nasopharynx by ROBBI with non-probe detection 09/13/2022 01:06:22 Negative Negative Final Human coronavirus HKU1 RNA [Presence] in Nasopharynx by ROBBI with non-probe detection 09/13/2022 01:06:22 Negative Negative Final Human coronavirus NL63 RNA [Presence] in Nasopharynx by ROBBI with non-probe detection 09/13/2022 01:06:22 Negative Negative Final Human coronavirus OC43 RNA [Presence] in Nasopharynx by ROBBI with non-probe detection 09/13/2022 01:06:22 Negative Negative Final SARS-CoV-2 (COVID-19) RNA [Presence] in Nasopharynx by ROBBI with non-probe detection 09/13/2022 01:06:22 Negative Negative Final Human metapneumovirus RNA [Presence] in Nasopharynx by ROBBI with non-probe detection 09/13/2022 01:06:22 Negative Negative Final Rhinovirus+Enterovirus RNA [Presence] in Nasopharynx by ROBBI with non-probe detection 09/13/2022 01:06:22 Negative Negative Final Influenza virus A RNA [Presence] in Nasopharynx by ROBBI with non-probe detection 09/13/2022 01:06:22 Negative Negative Final Influenza virus B RNA [Presence] in Nasopharynx by ROBBI with non-probe detection 09/13/2022 01:06:22 Negative Negative Final Parainfluenza virus 1 RNA [Presence] in Nasopharynx by ROBBI with non-probe detection 09/13/2022 01:06:22 Negative Negative Final Parainfluenza virus 2 RNA [Presence] in Nasopharynx by ROBBI with non-probe detection 09/13/2022 01:06:22 Negative Negative Final Parainfluenza virus 3 RNA [Presence] in Nasopharynx by ROBBI with non-probe detection 09/13/2022 01:06:22 Negative Negative Final Parainfluenza virus 4 RNA [Presence] in Nasopharynx by ROBBI with non-probe detection 09/13/2022 01:06:22 Negative Negative Final Respiratory syncytial virus RNA [Presence] in Nasopharynx by ROBBI with non-probe detection 09/13/2022 01:06:22 Negative Negative Final Bordetella pertussis.pertussis toxin promoter region [Presence] in Nasopharynx by ROBBI with non-probe detection 09/13/2022 01:06:22 Negative Negative Final Chlamydophila pneumoniae DNA [Presence] in Nasopharynx by ROBBI with non-probe detection 09/13/2022 01:06:22 Negative Negative Final Mycoplasma pneumoniae DNA [Presence] in Nasopharynx by ROBBI with non-probe detection 09/13/2022 01:06:22 Negative Negative Final Bordetella parapertussis [id number] DNA [Presence] in Nasopharynx by ROBBI with non-probe detection 09/13/2022 01:06:22 Negative Negative Final Performing Location LABORATORY [facility] - [facility] [place] [address] [place] [address]
--- OUTSIDE RECORDS SUMMARY | 2022-12-17 03:24 | External Medical Summary ---
Author Name Unknown Address Unknown Organization K1F:LABORATORY [facility] - [address] [place] [address] Laboratory Report Ordering Provider Test Date Status CARA LU 09/13/2022 05:21:00 Final Observation Date Value Abnormality Reference (Units ) Status Phosphate 09/13/2022 05:21:00 3.4 2.5-4.8 (m g/dL) Final Performing Location LABORATORY [facility] - [address] [place] [address]
--- OUTSIDE RECORDS SUMMARY | 2022-12-17 03:24 | External Medical Summary ---
Author Name Unknown Address Unknown Organization : Laboratory Report Ordering Provider Test Date Status MARKO ONEILL 09/13/2022 12:05:15 Final Observation Date Value Abnormality Reference (Units ) Status Glucose Point of Care 09/13/2022 12:05:15 147 Above high normal 70-120 (mg/dL) Final Performing Location
--- OUTSIDE RECORDS SUMMARY | 2022-12-17 03:24 | External Medical Summary | Summary of Care ---
Author Name Unknown Organization [facility] Address [address] [place] [address] Phone [phone] Care Team Providers Care Information Systems Consultant Name Role Phone Elías Jade MD Primary Care Provider [phone] Reason for Visit * Auth/Cert Specialty Diagnoses / Procedures Referred By Olivia torrez Referred To Contact Referral ID Status Reason Start Date Expiration Date Visits Re quested Visits Authorized [id number] Encounter Details Date Type Department Care Team Description 09/13/2022 Hospital Encounter Cardiac Studies, [address] [id number] Allergies Active Allergy Reactions Severity Noted Date [...] Active Benzonatate 100 MG Oral Capsule (Tessalon Perles)Indicatio ns:Shortness of breath Take 1 Capsule by [...] ANXIETY 270 Tablet 3 08/08/2022 Active Furosemide 20 MG Oral Tablet (Lasix)Indicatio ns:Left heart failure (HCC) Take by mouth 1 Tablet in the morning. 90 Tablet 3 10/21/2021 3 Discontinued Lisinopril 20 MG Oral Tablet (Prinivil)Indica tions:Stage 3a chronic kidney disease (HCC),HTN, goal below 140/90 TAKE 1 TABLET BEFORE BEDTIME 90 Tablet 2 06/13/2022 3 Discontinued Metoprolol Tartrate 25 MG Oral Tablet (Lopressor) TAKE 1/2 TABLET TWICE DAILY 90 Tablet 3 09/05/2022 3 Discontinued documented as of this encounter [...] No 09/13/2022 documented as of this encounter Discharge Summaries * Kira Nicholsa MD - 09/13/2022 9:00 AM EDT [address] [address] Admission Date: 09/13/2022 Discharge Date: 09/13/2022 RECOMMENDED TO DO FOR NEXT PROVIDER(S): Increased lisinopril to 40 mg daily Increased lasix to 40 mg daily Switched metoprolol tartrate to metoprolol succinate 50 mg daily REASON(S) FOR MEDICATION CHANGE(S): Cardiomyopathy DISPOSITION ON DISCHARGE: home There are no hospital problems to display for this patient. ADMISSION HISTORY & PHYSICAL EXAM (focused): Sahra Rodríguez is 77 year old female Mhx of ADRIANA, DM type II, CKD stage III, obesity, left bundlebranch, heat failure, and other medical condition listed below, presented to the ED for evaluation of Chest Pain. Patient reports that her chest pain started yesterday at rest, pressure like, central, non radiating, no aggravating or relieving factors. She reports multiple stressful events in her life, and her sister Passed recently. She reports that her chest pain is likely related to her anxiety. She denies fever, chills, visual changes, numbness, dizziness, headache, palpitation, syncope, wheezing, nausea, vomiting, diarrhea, heartburn, rash, changes in bowel habits, abdominal pain, or changes in urinary habits. BP: 164 mmHg/88 mmHg (09/13/22199) Pulse: 101 (09/13/22199) Temp: 36.72 C (09/12/222218) Resp: 18 (09/13/22199) SpO2: 97 % (09/13/2299) Body mass index is 38.62 kg/m. Constitutional: Obese female, no acute distress Head: Atraumatic, normocephalic Neck: supple, normal range of motion CV: tachycardia, no gallops or rub Chest: normal respiratory effort, lungs clear to auscultation Abdomen: normal: soft, bowel sounds normal, no tenderness Musculoskeletal: Joints, and limbs grossly normal Extremities: no clubbing, cyanosis, or edema Skin: warm, dry, intact: Neuro: alert, follow commands, respond to verbal stimuli Psych: normal mood and affect HOSPITAL COURSE (focused): Admitted to telemetry for cardiac monitoring. Palpation along her anterior chest wall reproduces her symptoms. Echocardiogram showed new cardiomyopathy with EF of 20-24%. Medication changes as statedabove per cardiology recommendations. 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 Operations & Procedures: none Complications: none applicable Significant Lab and Imaging Results: As mentioned above Results Pending at Discharge: Lab Results Pending at Discharge: None MEDICATION UPDATES AT DISCHARGE CONTINUE taking these medications but follow up with your Primary Care Physician (PCP). INSTRUCTIONS aspirin enteric coated 81 MG Tbec Take 1 Tablet by mouth in the morning. atorvaSTATin 80 MG Tablet Commonly known as: Lipitor TAKE 1 TABLET BEFORE BEDTIME Benzonatate 100 MG Capsule Commonly known as: Tessalon Perles Take 1 Capsule by mouth 3 times a day as needed for Cough. Do not cut, crush, or chew. busPIRone 10 MG Tablet Commonly known as: Buspar TAKE 1 TABLET THREE TIMES DAILY NEEDED FOR ANXIETY escitalopram 10 MG Tablet Commonly known as: Lexapro Take 1 Tablet by mouth daily. Furosemide 40 MG Tablet Commonly known as: Lasix Start taking on: September 14, 2022 Ask about: Which instructions should I use? Take 1 Tablet by mouth in the morning. Do not start before September 14, 2022. Lisinopril 20 MG Tablet Commonly known as: Prinivil Ask about: Which instructions should I use? Take 2 tablets by mouth every morning meclizine 25 MG Tablet Commonly known as: Antivert TAKE 1 TABLET NEEDED IN THE MORNING AND 1 TABLET NEEDED AT NOON AND 1 TABLET NEEDED IN THEEVENING FOR DIZZINESS MetFORMIN 1000 MG Tablet Commonly known as: Glucophage Take by mouth 1 Tablet 2 times a day with morning and evening meals . metoprolol succinate XL 50 MG Tb24 Commonly known as: toPROL XL Take 1 Tablet by mouth in the morning. Metoprolol Tartrate 25 MG Tablet Commonly known as: Lopressor TAKE 1/2 TABLET TWICE DAILY omeprazole 20 MG Cpdr Commonly known as: PriLOSEC Take 1 Capsule by mouth in the morning. ProAir HFA 108 (90 Base) MCG/ACT Aers Inhale 2 Puffs by mouth every 4 hours as needed for Wheezing. SCHEDULED FOLLOW-UP: Future Appointments Appt Date/Time Provider Department 11/02/2022 1:[address] [facility] Other Information Indwelling Devices: LINES ALL Duration Peripheral Line Anterior;Left Wrist 22 Gauge <1 day Vital Signs (last recorded): Allergies: Eggs or egg-derived products Activity: as tolerated Diet: cardiac diet Code status (this admission): No code status on file Condition on Discharge: stable Isolation status: None Cognition: normal HOSPITAL CONSULTS ORDERED: None REFERRING PHYSICIAN: Ref: [id number][[id number]] NO STRE[address] ADDRESS AVAILABLE None (office) None (fax) PRIMARY CARE PROVIDER: PCP: Elías Jade MD [address] / [place] [address] (office) [phone] (fax) Note: To contact a physician responsible for this patients hospital care, please call [employer] [phone]. I saw and evaluated the patient today. I have reviewed the trainee note and agree. I spent a total of 40 minutes coordinating, documenting, and providing care for this patient excluding time spent in the performance of separately billed services. I spent a total of 40 minutes coordinating, documenting, and providing care for this patient excluding time spent in the performance of separately billed services. documented in this encounter Miscellaneous Notes * Ancillary Progress Note - JONH Arias - 09/13/2022 9:00 AM EDT Echo completed at bedside. documented in this encounter Plan of Treatment Upcoming Encounters Date Type Specialty Care Team Description 09/20/2022 Office Visit Family Medicine Cherelle Hinojosa CRNP [address] [place] [address] 11/02/2022 Office Visit Family Mahogany Klein CRNP [address] [address] Health Maintenance Due Date Last Done Comments [...] Additional history exists CKD HGB USE SMARTSET 17079 09/14/202309/13, 09/12/2022, 09/12/2022, Additional history exists CKD PHOS USE SMARTSET 78000 09/14/202308/16, 03/19/2022, 10/21/2021 DXA Scan 03/11/2026 03/11/2019 [...] Procedure Name Priority Date/Time Associated Diagnosis Comments ECHO, COMPLETE (2D), TRANS-THORACIC Routine 09/13/2022 9:45 AM EDT Chest pain, unspecified type documented in this encounter Visit Diagnoses Diagnosis Left heart failure (HCC)- Primary Left heart failure Left bundle branch block (LBBB) documented in this encounter Administered Medications Inactive Administered Medications - up to 3 most recent administrations Medication Order MAR Action Action Date Dose Rate Site perflutren lipid microsphere inj SUSP 1.956 mg 1.956 mg, Intravenous, ONCE PRN Other, For Echo Only - Suboptimal Echo Images, Starting on Sun09/13/22 at 0936, Until Sun09/13/22 at 1135, For 2 hours, Administer IVP over 45 seconds, Cardiac Studies_HODHOV Given 09/13/2022 9:48 AM EDT 1.956 mg documented in this encounter Advance Directives Latest [...] the patient have Health Care Power of Blueprint Processor? No Full Code 02/28/2021 8:35 AM 03/01/2021 8:18 PM Thi s order reflects the patients wishes and were consensually agreed upon. Question Answer Comments Discussion of Advance Directives occurred with: Patient Full Code 10/06/2020 12:41 AM 10/06/2020 9:21 PM This order reflects the patients wishes and were consensually agreed upon. Question Answer Comments Discussion of Advance Directives occurred with: Patient Care Teams Information Systems Consultant Relationship Specialty Start Date End Date Elías Jade MD [address] [id number] PCP - General Family Medicine 2/16/22 documented as of this encounter
--- OUTSIDE RECORDS SUMMARY | 2022-12-17 03:24 | External Medical Summary ---
Author Name Unknown Address Unknown Organization K1F:LABORATORY [facility] - [address] [place] [address] Laboratory Report Ordering Provider Test Date Status HAFSA HENRYKERMIT 09/12/2022 23:15:00 Final Observation Date Value Abnormality Reference (Units ) Status SYNC LEUKOCYTES IN BLOOD BY AUTOMATED COUNT 09/12/2022 23:15:00 9.46 4.00-10.80 (K/uL) Final Segs 09/12/2022 23:15:00 69.0 40.0-75.0 (%) Final Lymphs % 09/12/2022 23:15:00 21.1 18.0-42.0 (%) Final Monos 09/12/2022 23:15:00 7.4 1.0-11.0 (%) Final Eosinophils 09/12/2022 23:15:00 2.0 0.0-6.0 (%) Final Basos 09/12/2022 23:15:00 0.4 0.0-2.0 (%) Final Immature Granulocyte, Percent 09/12/2022 23:15:00 0.1 0.0-2.0 (%) Final Absolute Segs 09/12/2022 23:15:00 6.52 1.80-7.70 (K/uL) Final Lymphs, absolute 09/12/2022 23:15:00 2.00 1.00-4.80 (K/ul) Final Monos, Abs 09/12/2022 23:15:00 0.70 0.00-1.10 (K/uL) Final Eos, Abs 09/12/2022 23:15:00 0.19 0.00-0.70 (K/uL) Final Basos, Abs 09/12/2022 23:15:00 0.04 0.00-0.20 (K/uL) Final Immature Granulocytes, Number 09/12/2022 23:15:00 0.01 0.00-0.20 (K/uL) Final Performing Location LABORATORY [facility] - [address] [facility] [address] [place] [address]
--- OUTSIDE RECORDS SUMMARY | 2022-12-17 03:24 | External Medical Summary ---
Author Name Unknown Address Unknown Organization K1F:LABORATORY [facility] - [address] [place] [address] Laboratory Report Ordering Provider Test Date Status LAM HENRY 09/12/2022 23:15:00 Final Observation Date Value Abnormality Reference (Units ) Status WBC, Total 09/12/2022 23:15:00 9.46 4.00-10.80 (K/uL) Final RBC 09/12/2022 23:15:00 3.74 3.85-5.15 (M/uL) Final Hemoglobin 09/12/2022 23:15:00 10.3 Below low normal 12.0-15.3 (g/dL) Final HCT 09/12/2022 23:15:00 32.6 Below low normal 36.0-45.2 (%) Final MCV 09/12/2022 23:15:00 87.2 81.5-97.5 (fL) Final MCH 09/12/2022 23:15:00 27.5 27.0-34.0 (pg) Final MCHC 09/12/2022 23:15:00 31.6 32.0-36.0 (g/dL) Final RDW 09/12/2022 23:15:00 14.3 11.5-15.5 (%) Final Platelets 09/12/2022 23:15:00 246 140-400 (K/uL) Final MPV 09/12/2022 23:15:00 10.6 6.6-11.1 (fL) Final Nucleated erythrocytes/100 leukocytes [Ratio] in Blood by Automated count 09/12/2022 23:15:00 0 <=0 (/100 WBCs) Final Performing Location LABORATORY [facility] - [address] [place] [address]
--- OUTSIDE RECORDS SUMMARY | 2022-12-17 03:24 | External Medical Summary ---
Author Name Unknown Address Unknown Organization K1F:LABORATORY [facility] - [address] [place] [address] Laboratory Report Ordering Provider Test Date Status MARKO ONEILL 09/13/2022 05:21:00 Final Observation Date Value Abnormality Reference (Units ) Status BNP, Pro-hormone 09/13/2022 05:21:00 4996 Above high no rmal <300 (pg/mL) Final Performing Location LABORATORY [facility] - [address] [place] [address]
--- OUTSIDE RECORDS SUMMARY | 2022-12-17 03:24 | External Medical Summary ---
Author Name Unknown Address Unknown Organization K1F:LABORATORY [facility] - [address] [place] [address] Laboratory Report Ordering Provider Test Date Status CARA LU 09/13/2022 05:21:00 Final Observation Date Value Abnormality Reference (Units ) Status BUN 09/13/2022 05:21:00 15 6-20 (mg/dL) Final Creatinine 09/13/2022 05:21:00 1.3 Above high normal 0.5-1.0 (mg/dL) Final Glomerular filtration rate/1.73 sq M.predicted [Volume Rate/Area] in Serum, Plasma or Blood by Creatinine-based formula (CKD-EPI) 09/13/2022 05:21:00 44 Below low normal >=60 (mL/min) Final Performing Location LABORATORY [facility] - [address] [place] [address]
--- OUTSIDE RECORDS SUMMARY | 2022-12-17 03:24 | External Medical Summary ---
Author Name Unknown Address Unknown Organization : Laboratory Report Ordering Provider Test Date Status MARKO ONEILL 09/13/2022 16:27:45 Final Observation Date Value Abnormality Reference (Units ) Status Glucose Point of Care 09/13/2022 16:27:45 126 Above high normal 70-120 (mg/dL) Final Performing Location
--- OUTSIDE RECORDS SUMMARY | 2022-12-17 03:24 | External Medical Summary | Summary of Care ---
Author Name Unknown Organization [facility] Address [address] [place] [address] Phone [phone] Care Team Providers Care Watch Case Polisher Name Role Phone Elías Jade MD Primary Care Provider [phone] Reason for Visit * Reason Comments Chest Pain * Auth/Cert Specialty Diagnoses / Procedures Referred By Olivia t Referred To Contact Referral ID Status Reason Start Date Expiration Date Visits Re quested Visits Authorized [id number] Encounter Details Date Type Department Care Team Description 09/12/2022 - 09/13/2022 Hospital Encounter [facility] 3rd Floor [address] [place], [place] [id number] Emil Govea, [address] [place] [address] Toyin Morris MD [address] [place] [id number] Kira Nicholas MD [address] [place] [address] [phone] Various: KRAVS,EKG Allergies Active Allergy Reactions Severity Noted Date [...] morning. 30 Tablet 0 09/13/2022 3 Active Furosemide 20 MG Oral Tablet (Lasix)Indicatio [...] Sign Reading Time Taken Comments Blood Pressure 146/79 09/13/2022 3:38 PM EDT Pulse 77 09/13/2022 3:38 PM EDT Temperature 36.4 C (97.5 F) 09/13/2022 3:38 PM ED T Respiratory Rate 18 09/13/2022 3:38 PM EDT Oxygen Saturation 95% 09/13/2022 3:38 PM EDT Inhaled Oxygen Concentration - - Weight 104.8 kg (231 lb) 09/13/2022 6:00 AM EDT Height 167.6 cm (5' 6") 09/13/2022 2:50 AM EDT Body Mass Index 37.28 09/13/2022 2:50 AM EDT documented in this encounter Functional [...] 09/13/2022 documented as of this encounter Discharge Instructions * Appointments* LAURIE Lock - 09/13/2022 5:17 PM EDT PCP Elías Jade [phone] Please call to schedule an appointment in 3 days. Cardiology [address] [place] [address] 4th Floor [facility] [phone] Please call to schedule an appointment in 1 week. * Discharge Instr - AVS* Cheyenne Kramer MD - 09/13/2022 4:38 PM EDT Discharge Date: 09/13/2022 The information below provides you with the instructions and the list of medications you need to betaking following discharge from the hospital. If you have any questions, please ask before leaving. If you have questions after leaving, you canreach us at the numbers below. YOUR HOSPITAL PROVIDERS: Discharging Provider: Kira Nicholas MD Provider Department: Hospital Medicine To reach this Provider Sunday through Sunday (8:00 AM to 4:30 PM) for any questions or test results: Call [phone] For after-hours concerns: Call [phone] and have your provider paged, or the provider valuation manager for the Department of Hospital Medicine paged. [...] available, you can go to your local [facility] during their business hours. In an EMERGENCY situation: Call [phone] or go to the nearest emergency room. A BRIEF SUMMARY OF YOUR HOSPITAL STAY: You came to the hospital with: complaint of chest pain Your main diagnosis at discharge was: heart failure Operations & Procedures performed: none Complications: none applicable Inpatient test results that are pending at discharge: none Advance Directive Documented: Advance Directive Does the Patient have an Advance Directive? Not Addressed YOUR FOLLOW UP APPOINTMENTS: Primary Care Provider Information: PCP: Elías Jade MD [address] [facility] / [place] [address] (office) [phone] (fax) An appointment was requested with your PCP (Elías Jade MD) within 7 days. 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 Last EF: 20-24% CALL YOUR DOCTOR IF YOU: ? Have a weight gain of 5 pounds ? Notice your feet, legs, or hands are swollen ? Notice a fast heart beat or palpitations ? Have increased cough especially at night ? Notice fullness in abdomen ? Have a loss of appetite ? Become easily dizzy or lightheaded ? Feel more short of breath than usual ? Have dry mouth (sign of dehydration) ? Have muscle cramps (sign of dehydration) Additional Instructions: Your Lasix was increased to 40 mg daily Your lisinopril was increased to 40 mg daily You metoprolol was switched to 50 mg daily documented in this encounter H&P Notes * Toyin Morris MD - 09/13/2022 2:45 AM EDT Images from the original note were not included. [facility] 11B/X PRESENTING PROBLEM: Chest Pain HPI: Sahra Rodríguez is 77 year old female Mhx of ADRIANA, DM type II, CKD stage III, obesity, left bundle branch, heat failure, and other medical condition listed [...] abdominal pain, or changes in urinary habits. In the ED: Patient received ASA 325 mg, Hydroxyzine 25 mg PO Telemetry was reviwed and was noted for normal sinus rhythm Subjective Patient's past history, medications, and allergies were reviewed. Objective Physical Exam Most Recent Vital Signs: BP: 164 mmHg/88 mmHg (09/13/22199) Pulse: 101 (09/13/22199) Temp: 36.72 C (09/12/229) Resp: 18 (09/13/22199) SpO2: 97 % (09/13/2299) [...] verbal stimuli Psych: normal mood and affect STUDIES: Labs and other studies reviewed with pertinent findings noted below: Metabolic panel Lab results within last 7 days (see chart for full results) Units 09/12/22 2315 Sodium mmol/L 139 Potassium mmol/L 3.7 Chloride mmol/L 104 CO2 mmol/L 26 BUN mg/dL 16 Creatinine mg/dL 1.4* Estimated Glomerular Filtration Rate mL/min 39* Glucose mg/dL 176* Calcium mg/dL 9.8 Anion Gap mmol/L 9 Hematology work-up Lab results within last 7 days (see chart for full results) Units 09/12/22 2315 WBC K/uL 9.46 HGB g/dL 10.3* MCV fL 87.2 Neutrophils % % 69.0 Monocytes % % 7.4 Eosinophils % % 2.0 PLT K/uL 246 Cardiac Biomarker Lab results within last 7 days (see chart for full results) Units 09/13/22 0106 09/12/22 2315 Troponin T, High Sensitivity ng/L 32* 28* Hepatic panel Lab results within last 7 days (see chart for full results) Units 09/12/22 2315 Albumin g/dL 4.1 AST U/L 17 Alkaline Phosphatase U/L 102 ALT U/L 12 Bilirubin, Total mg/dL 0.3 Protein g/dL 6.9 Lab results within last 7 days (see chart for full results) Units 09/13/22 0106 Influenza A Virus by PCR Negative Influenza B Virus by PCR Negative Respiratory Syncytial Virus by PCR Negative Coronavirus SARS-CoV-2 by PCR Negative XR CHEST 2 VIEWS FINDINGS: Tubes, catheters and devices: Valvular replacement device. Lungs: Unremarkable. No consolidation. Pleural spaces: Unremarkable. No pleural effusion. No pneumothorax. Heart/Mediastinum: The cardiac silhouette is enlarged. Bones/joints: Median sternotomy wires. IMPRESSION: No acute cardiopulmonary findings. EKG Sinus rhythm with Premature atrial complexes Left axis deviation Left bundle branch block VR 89, QTc 501 Assessment and Plan IMPRESSION: Principal Problem: Acute chest pain Active Problems: ADRIANA (generalized anxiety disorder) S/P aortic valve replacement Type 2 diabetes mellitus with diabetic chronic kidney disease (HCC) Severe obesity with body mass index (BMI) of 35.0 to 39.9 with serious comorbidity (HCC) MANDY (obstructive sleep apnea) Left bundle branch block (LBBB) Left heart failure (HCC) Type 2 diabetes mellitus with stage 3b chronic kidney disease (HCC) Chronic kidney disease, stage 3b (HCC) Resolved Problems: * No resolved hospital problems. * DIFFERENTIAL AND PLAN: Continue with ASA/Statin Follow the repeat troponin level Telemetry monitoring Monitor electrolytes and replace if indicated Monitor respiratory status Supplemental oxygen as needed Cardiology evaluation Echocardiogram Continue Lasix/Lisniopril/Metoprolol tartrate 25mg BID Monitor intake and output, monitor creatinine Monitor blood pressure Omeprazole 20 mg daily Insulin sliding scale Monitor blood glucose level Hypoglycemic protocol Continue escitalopram 10mg daily Antiemetic/Bowel regimen as needed DVT prophylaxis Heart healthy diet I have reviewed the labs & imaging and noted for the above findings I have reviewed the Chart I spent 75 minute for the patient care, more than half my time was spent reviewing the chart, lab results, imaging and studies, counseling and coordinating care for the patient. I discussed the plan of care with the ED attending and answered all questions that the patient has. PHARMACOLOGIC VTE PROPHYLAXIS:Enoxaparin CODE STATUS: Full Code EXPECTED DISCHARGE DATE: No information available documented in this encounter Procedure Notes * Santosh Perez DO - 09/13/2022 1:54 AM EDTAssociated Order(s): EKG REASON FOR STUDY: REPEAT1 CONCLUSIONS: Sinus rhythm with Premature atrial complexes Left axis deviation Left bundle branch block Abnormal ECG When compared with ECG of 13-SEP-2022 01:54, No significant change Ventricular Rate: 89 Atrial Rate: 91 PA Interval: 154 QRS Duration: 146 QT/QTc: 412/501 ms P-R-T [place]: 74 : -31 : 116 degrees * Santosh Perez DO - 09/12/2022 10:22 PM EDTAssociated Order(s): EKG REASON FOR STUDY: CP CONCLUSIONS: Sinus rhythm with Premature supraventricular complexes Left bundle branch block Abnormal ECG When compared with ECG of 19-MAR-2022 10:04, Similar findings Ventricular Rate: 97 Atrial Rate: 97 PA Interval: 168 QRS Duration: 152 QT/QTc: 380/482 ms P-R-T [place]: 0 : -5 : 137 degrees documented in this encounter Consult Notes * Waleska Ferguson Pipe Tester - 09/13/2022 6:07 PM EDT Associated Order(s): CARE MANAGEMENT CONSULT IP See ancillary note. * Santosh Perez DO - 09/13/2022 10:10 AM EDTAssociated Order(s): CARDIOLOGY CONSULT IP Cardiology Consult [facility] [address] Name: Sahra Rodríguez Location: [facility] [id number]-[id number]/W Date: 09/13/2022 Time: 10:10 AM REQUESTING SERVICE: Hospitalist REASON FOR CONSULT: Chest Pain HPI: Sahra Rodríguez is a 77 year old who presented to [facility] ED on 5/30/23 for evaluation of chest pain. States that she was sitting in her recliner when the pain came on. Denies radiation and accompanying symptoms. Pain is not worse with exertion. Has been under a lot of stress. Reports having anxiety attacks. Her sister on Sunday. Her grandson has been harassing her. She is tearful this morning. PAST MEDICAL HISTORY: Past Medical History: Diagnosis Date Anxiety 2014 Diabetes (HCC) 2005 approx GERD (gastroesophageal reflux disease) PAST SURGICAL HISTORY: Past Surgical History: Procedure Laterality Date REMOVE CATARACT, INSERT LENS PROSTH Bilateral REMOVE GALLBLADDER 1986 REPLACEMENT OF AORTIC VALVE (KONNO) 2010 23mm Jocelynn Coto pericardial bioprosthesis FAMILY HISTORY: Family History Problem Relation Age of Onset Heart attack Mother Stroke Sister Cancer Brother unknown primary SOCIAL HISTORY: Social History Tobacco Use Smoking status: Never Smokeless tobacco: Never Vaping Use Vaping Use: Never used Substance Use Topics Alcohol use: Never Drug use: Never Comment: no h/o IVDA ALLERGIES: Eggs or egg-derived products ROS: See HPI for pertinent positives. All others negative other than those noted in the HPI. CONSTITUTIONAL: No change in weight, No weakness, No fatigue and No fevers, No sweats or chills. PULMONARY: No cough, sputum, or hemoptysis, No wheezing, No shortness or breath and No recent change in breathing. CARDIOVASCULAR: +chest pain, No dyspnea on exertion, No edema, No palpitations and No syncope. GASTROINTESTINAL: No abdominal pain, No change in bowel habits, No significant heartburn, No nausea, No vomiting, No diarrhea, No constipation, No blood in stools or black tarry stools. No dysphagia. HEMATOLOGIC: No abnormal bleeding and No bruising. NEUROLOGICAL: Normal balance, No headaches and No weakness. PRIOR TO ADMISSION MEDICATIONS: Prior to Admission medications Medication Sig Last Dose Discont. Metoprolol Tartrate 25 MG Oral Tablet (Lopressor) TAKE 1/2 TABLET TWICE DAILY 09/12/2022 busPIRone HCl 10 MG Oral Tablet (Buspar) TAKE 1 TABLET THREE TIMES DAILY NEEDED FOR ANXIETY 09/12/2022 Lisinopril 20 MG Oral Tablet (Prinivil) TAKE 1 TABLET BEFORE BEDTIME 09/12/2022 Benzonatate 100 MG Oral Capsule (Tessalon Perles) Take 1 Capsule by mouth 3 times a day as needed for Cough. Do not cut, crush, or chew. Past Month ProAir HFA 108 (90 Base) MCG/ACT Inhalation Aerosol Solution Inhale 2 Puffs by mouth every 4 hours as needed for Wheezing. Past Week Atorvastatin Calcium 80 MG Oral Tablet (Lipitor) TAKE 1 TABLET BEFORE BEDTIME 09/12/2022 Meclizine HCl 25 MG Oral Tablet (Antivert) TAKE 1 TABLET NEEDED IN THE MORNING AND 1 TABLET NEEDED AT NOON AND 1 TABLET NEEDED IN THE EVENING FOR DIZZINESS 09/12/2022 Furosemide 20 MG Oral Tablet (Lasix) Take by mouth 1 Tablet in the morning. 09/12/2022 metFORMIN HCl 1000 MG Oral Tablet (Glucophage) Take by mouth 1 Tablet 2 times a day with morning and evening meals . 09/12/2022 Escitalopram Oxalate 10 MG Oral Tablet (Lexapro) Take 1 Tablet by mouth daily. 09/12/2022 aspirin enteric coated 81 MG TBEC Take 1 Tablet by mouth in the morning. 09/13/2022 omeprazole (PRILOSEC) 20 MG CPDR Take 1 Capsule by mouth in the morning. 09/12/2022 PHYSICAL EXAMINATION: Most Recent Vital Signs: BP: 148 mmHg/71 mmHg (09/13/22 1004) Pulse: 91 (09/13/22 1004) Temp: 36.28 C (09/13/22 0740) Resp: 16 (09/13/22 0740) SpO2: 95 % (09/13/22 0740) Vital Signs Last 24 Hours: Systolic BP: @SBPMAXR(24)@Temperature: Temp Av.3 C (97.4 F) Min: 36 C (96.8 F) Max: 36.7 C (98.1 F) Pulse: Pulse Av.8 Min: 73 Max: 103 Respirations: Resp Av Min: 16 Max: 20 SpO2: SpO2 Av.4 % Min: 93 % Max: 99 % General: No acute distress. A+Ox3. HEENT: Normocephalic. Atraumatic. PERRL. EOMI. Conjunctiva and sclera clear. NECK: No carotid bruits. No JVD. Carotid upstrokes are brisk. Heart: RRR. S1 and S2 noted. No murmur. No rubs or gallops. PMI non displaced. +Tender to palpation Lungs: Clear to auscultation. No wheezes.No rhonchi. No rales. Abdomen: Normal bowel sounds. Soft. Nontender. No masses or organomegaly. No abdominal bruits. +Obese Extremities: No edema. No clubbing or cyanosis. Pulses: radial=2/4, posterior tibial=2/4, dorsalis pedis = 2/4. NEURO: No focal deficits. PSYCH: Appropriate affect and insight. +Tearful DATA: Labs & Imaging Reviewed Below: Nuclear Stress Test 03/20/2022 Lexiscan nuclear cardiac stress test negative for ischemia. Decreased counts noted in the inferior wall that improved with stress suggestive of attenuation artifact. The LV ejection fraction is calculated at 47% IMPRESSION: 1. Chest Pain 2.Chronic LBBB 3. HFpEF 4.Obesity 5. CKD 3 6. DM 2 PLAN: -Atypical chest pain. It was reproducible on exam. -Chest pain is likely secondary to her anxiety and stress. -Nuclear stress test in March was negative for ischemia. -Troponin's are mildly elevated, which seems to be her baseline. -She will continue to follow with her Petroleum Refinery Worker in [place]. -Thanks for the consult Case discussed and coordinated with Dr. Perez. Please see Dr. Perez's notes for further recommendations. RODRIGUEZ Mack Department of Cardiology I have seen and evaluated this patient. She has a chronic left bundle-branch block. We have been asked to evaluate her for chest pain. She is under a great deal of stress as she had a family member recently. Her chest pain is reproducible to palpation along her anterior chest wall. Shehad a stress test in March 2022 for very similar symptoms which was negative for ischemia. I agree with remainder the above history of present illness. I agree with the above past medical history, social history, family history, surgical history, and review of systems. Medications and allergies reviewed. General: no acute distress and stated age Eyes: conjunctiva are pink and non-injected, sclera clear Neck: normal jugular venous pulse, no hepatojugular reflux Chest: normal shape and normal respiratory effort Lungs: clear to auscultation and percussion Cardiac Exam: - regular heart sounds, paradoxically split S2 Abdomen: abdomen soft, non-tender, no abnormal masses and no hepatosplenomegaly Musculoskeletal: Chest pain reproducible to palpation. Extremities: no edema and no cyanosis Neuro: grossly normal exam Psych: appropriate affect and insight. 1. Chest pain: At this point time we do not feel her chest pain is cardiac related and no further cardiac evaluation is required. Santosh Perez DO Addendum 2:09 p.m. her echoes been completed and she has developed a cardiomyopathy. My impression is her cardiomyopathy is related to a left bundle- branch block. She does have a previous history of aortic valve replacement and she tells me her coronary arteries were normal prior to her aortic valve replacement however this is been over a decade ago. Once again reaffirmed with her the palpation along her anterior chest wall reproduces her symptoms. At this point time I think she can be discharged and I recommend increasing her lisinopril to 40 mgdaily and changing her metoprolol tartrate to metoprolol succinate 50 mg daily. She has a primary mold repair technician in [place] who she wishes to see for follow-up of her cardiomyopathy. Santosh Perez DO documented in this encounter Nursing Notes * Mallory Jenkins LPN - 09/13/2022 7:31 AM EDT Assumed care of patient at 0700 from CARIDAD Helm at bedside. Student Nurse Darlene has his patient and will be passing meds. 0730: Pt is laying in bed during bedside shift report. VS obtained. Assessment completed. 0830: Med given per MAR. Pt is eating breakfast. 0930: PT is resting in bed. Call madden within reach. 1030: PT is washed up by the carpentry teacher. Call madden within reach. 1115: Education was given to patient on CHF, CKD, CM, and lasix. Pt verbalized understanding and the material was placed in her discharge folder. 1230: Pt is sitting in chair to eat lunch. 1330: Pt is resting in chair. Call madden within reach. 1430: Pt is resting in bed. Call madden within reach. 1530: PT is resting in bed. Call madden within reach. 1630: Pt is wating for daugther to come to take her home. 1725: Pt discharge completed. Waiting for daughter to arrive for discahrge instructions. NURSING DISCHARGE PROGRESS NOTE [facility] [id number] Name: Sahra Rodríguez Location: [facility] 3B-3017/W Date: 09/13/2022 Time: 6:09 PM FUNCTIONAL INDEPENDENCE MEASURE (must be completed for all patients on discharge): Feedin = Complete independence Locomotion: 4 = Complete independence Expression: 4 = Complete independence Transfer Mobility: 4 = Complete independence Social Interaction: 4 = Complete independence Destination: Home OXYGENATION: Discharged with O2: No PATIENT DEVICES: None documented in this encounter ED Notes * Emil Govea, - 09/13/2022 12:07 AM EDT HISTORY OF PRESENT ILLNESS Sahra Rodríguez is a 77 year old female who presents to the ED for evaluation of Chest Pain. The patient was seen at 09/13/22 0006. 77-year-old female with a history of type 2 diabetes, heart failure, CKD, obesity, dyslipidemia/hypertension, renal mass. She reports 1 hour of chest discomfort that occurred while sitting after just getting back from eating pasta with white saw us Pepsi and bread sticks. She says she is had similar before and it was anxiety. She denies shortness of breath nausea diaphoresis along with those symptoms. It happened 1 time and is resolved. It did not get worse with exertion. She has history of anxiety and has been anxious due to family stressors including her sister's and her son. She was hospitalized [facility] with a negative stress test in March of 2022 Chart review, seen 08/29 for viral syndrome The patient's allergies, past history, and medications were reviewed. PHYSICAL EXAM Initial Vitals (see all): BP 179/100 | Pulse 91 | Resp 20 | Temp 98.1 | O2 99 %Weight 102.06 kg | Height 167.6 cm | BMI 36.32kg/m2 Initial Pain Assessment (see all): 5 (moderate pain)/10 ([facility] Adult Scale 0-10) GLH 11b x General: alert, comfortable-appearing, NAD HEENT: Head: NCAT, face symmetric Eyes: sclera white, conjunctiva pink Ears: external normal Nose: external normal Throat: mucous membranes moist Neck: neck supple, full painless ROM Cardio: s1s2 and regular, no murmur rub or gallop Pulm: lungs clear with no wheeze, rhonchi, rales; no increased WOB, no accessory muscle use Abdomen: non-acute, soft nontender, non-distended, without palpable mass rebound or guarding Neuro: normal sensorium and speech, symmetric UE and LE strength 5/5 and nml sensation Skin: warm, dry, intact with no erythema bruising or petechiae Extremities: no gross deformities, wwp x4, pp +2 x4 PROCEDURES AND TREATMENTS ED Orders | ED Results MEDICAL DECISION MAKING Nursing notes and vital signs were reviewed. ED Course as of 09/13/22 0255 SunSeptember 12, 2022 2308 EKG interpreted by me, sinus rhythm with left bundle-branch block pattern wo sgarbossa, does have computer reading premature supraventricular complexes [TS] SunSeptember 13, 2022 0207 D/w hospitalist who accepted the patient (Annette) [TS] ED Course User Index [TS] Emil Govea DO In summary, is a 77-year-old female presents for chest pain. Differential diagnosis includes acs, arrhythmia, pericarditis, dissection, valvular dysfunction, pna, ptx, pe, esophagitis/spasm, gerd, pud, pancreatitis, MSK, anxiety, takotsubo cardiomyopathy among others. Vital signs with mild tachycardia/hypertension. History and physical does not sound classic angina,negative stress test 2021. Does have significant home stressors. No eating or exertion component. EKG with left bundle, chronic, no Sgarbossa. Troponin 28 up to 32. Reviewed with hospitalist service (Dr. Morris) who will accept telemetry for further evaluation. Concern would be stress induced cardiomyopathy over others, anxiety also consideration. Heart score greater than 4 based on age and risk factors alone Amount and/or Complexity of Data Reviewed Labs: ordered. Radiology: ordered. ECG/medicine tests: ordered. Risk OTC drugs. Prescription drug management. Decision regarding hospitalization. Clinical Impressions Chest pain Disposition Admitted. I discussed the management of this patient with the admitting provider and I made a decision to admit the patient. Admission Order Ordered Status . 09/13/22 0221 Admit for Inpatient Services (incl ZPO) ONCE Completed Emil Govea * Sharon Burks RN - 09/12/2022 10:20 PM EDT Patient reports that she developed chest pain today. Patient does report a hx of anxiety and received stressors in her life documented in this encounter Miscellaneous Notes * Ancillary Progress Note - Waleska Ferguson, Pipe Tester - 09/13/2022 6:07 PM EDT CARE MANAGEMENT - ADULT INITIAL SCREENING [facility] [id number] Name: Sahra Rodríguez Location: [facility] 3B-3017/W Date: 09/13/2022 Time: 6:23 PM Patient Class: Inpatient (09/13/221822) Discussed patient with the interdisciplinary care team. This Process Controls Technician performed a chart review and met with Patient at bedside to complete admission screen and assessed needs for transition planning. The director of managed care role and services were explained and emotional support was provided. 30 Day Readmission Screening Chief Complaint: Chest Pain Prior Living Arrangements What was your living situation prior to admission/observation?: Independently;With Child (09/13/221822) Do you have any children, pets, or other dependents that you are currently caring for?: Yes (comment) (Dog) (09/13/221822) Living Quarters: House (09/13/221822) How many stories is the dwelling?: One Story (09/13/221822) Number of steps to enter living quarters:: 1 (09/13/221822) Location of bathroom(s): All floors or Single story dwelling (09/13/221822) Do you have serious difficulty walking or climbing stairs? (5 years old or older): No (09/13/221822) History of falling: No (09/13/221822) Prior Level of Functioning Describe the patient's ability prior to admission/observation to perform ADLs: Performs independently (09/13/221822) Describe the patient's mobility status prior to admission: Patient ambulates independently (09/13/221822) Patient uses assistive device: No (Patient has a cane but does not use it.) (09/13/221822) If yes, choose:: Cane (09/13/221822) Caregiver Information Patient Contacts Name Relation Home Work Mobile Terrence Rodríguez Adult Child [phone] Herlinda Glover Adult Child [phone] Risk Stratification/Psychosocial/Care Gaps Risk Stratification Medical and Behavioral Health Concerns Identified: Advanced age with fragility (09/13/221822) Psycho Social/Care Gaps concerns identified upon admission:: N/A (09/13/221822) Accessed [facility] to connect patients to social care resources: No (09/13/221822) OBRA or OPTIONS needed for placement: No (09/13/221822) Readmission Risk Score: 16 (09/13/221822) AM-PAC Score With Stairs : 19 (09/13/22729) Comments: Patient came in to the ED with chest pain. Patient was last admitted to the hospital on 03/19/22. PMH type 2 diabetes , MANDY, Left heart failure, LBBB, Uncontrolled hypertension. Consults CM and Cardiology. Patient lives at home with her son Terrence. Patient reported that the home has one step in and one story. Patient reported that she uses no DMEs but has a cane. Patient reported that she can go up anddown steps and has had no falls in the last 30 days. Patient reported that she has a dog and has had no SNF stays and has no needs at this time. Patient goal for discharge is to discharge home with no needs. Am Pac 19 [employer] MEDICARE ADVANTAGE/HUMANA CHOICE PPO Prior to Admission Services Services Prior to Admission TUB WASHER Services (Services received within the last 30 days with exception, Psych within last two years): N/A (09/13/221822) [place] Dept[employer] of Aging (PDA) Waiver Program: N/A (09/13/221822) TUB WASHER Transportation (Services received within the last 30 days): Family/Friends Personal Vehicle;Medical Transportation (09/13/221822) Outpatient Process Controls Technician: no, not applicable Patient/Family Expectations: D/c home Anticipated Disposition Plan & Post Acute Needs Anticipated Plan Anticipated D/C disposition per abbreviated screening: Routine discharge or self care, No D/C planning needs identified. Will monitor for status change (09/13/221822) Anticipated Post-Acute Care needs identified: N/A (09/13/221822) For further screening information, please refer to the Care Management flow document. * Ancillary Progress Note - Waleska Ferguson Pipe Tester - 09/13/2022 6:07 PM EDT ADULT CARE MANAGEMENT - DISCHARGE NOTE [facility] [address] Name: Sahra Rodríguez Location: [facility] [id number] Date: 09/13/2022 Time: 6:50 PM The following coordination of care and discharge plan has been coordinated with the care team, patient, family and/or caregiver according to the patients needs and preferences. Discharge Discharge Discharge Transportation: Personal Vehicle (09/13/221844) Date of scheduled discharge transportation: 09/13/22 (09/13/221844) Patient declined post-hospital transition of care recommendation: N/A (09/13/221844) Final D/C Plan - Complete at time of D/C Final Discharge Plan (Complete only at time of Discharge): Home - Self Care (09/13/221844) Destination - Discharged on 09/13/2022 Admission date: 09/12/2022 - Discharge disposition: Home - Self Care No services have been selected for the patient. Narrative: Patient d/c home with no needs. * Care Plan - Renee Sutton RN - 09/13/2022 6:03 PM EDT Clinical Goal(s): Pt will deny chest pain this shift (09/13/22 0700) Possible barriers to meeting goal(s)/advancing plan of care: Acuity of illness Stability of the patient: Moderately stable - low risk of patient condition declining or worsening Summary regarding today's goal(s): Met: Pt denied chest pain this shift Recommendations: Monitor for chest pain. Continue plan of care * Ancillary Progress Note - Emily Fontaine, Pipe Tester - 09/13/2022 4:02 PM EDT During IDT asked for CM to see pt discuss supports and social issue pt has had home. CM met with pt and discussed her supports at home. Pt's son and one daughter are her main supports at home. Pt is able to talk to them about anything. Pt has been having issues with her grandchildren from the daughter that she is estranged from. Pt discussed some of the ongoing things that have been happening and pt discussed the police involvement. CM provided reassurance with positive effect.Pt's sister recently and pt talked with CM about her sister. CM and pt discussed OP therapy (mental health) services. Pt declined OP therapy services at this time. CM talked with pt about how to access OP therapy services once discharged if she decided she would want/need OP therapy services. Pt was in a positive mood when CM left pt's room. * Ancillary Progress Note - Chaplain Mamta - 09/13/2022 1:42 PM EDT PROGRESS NOTE - Spiritual Care Contact Information [facility] [address] Name: Sahra Rodríguez Location: [facility] [id number] Date: 09/13/2022 Time: 4:07 PM Jainism: Other [41] Alevism Affiliations: REASON FOR VISIT: request REQUEST RECEIVED FROM: staff member - Name: Dr Cheyenne Kramer, Resident Physician VISIT LENGTH: 26 REQUEST FACTORS (Nature of Situation): Initial Visit FOCUS OF CARE: Patient SPIRITUAL ASSESSMENT: Angelica or Belief System: Holiness Most Important Need(s) / Concern(s): Crying, Helpless, Sad, Suffering and Weary Sense of Community and/or Alevism Affiliation: Not currently affiliated Addresses need(s)/concerns(s) and/or omar through: Emotional expression, Angelica, Family, God/HigherPower SPIRITUAL CARE PROVIDED: Manager Of Finance addressed needs/concerns and/or coping through: Facilitating sharing/expression, Listeningpresence, Prayer and Supportive dialogue REFERRAL TO: N/A OUTCOMES: [place], Emotional Release, Identifying Patient's Strengths/Source of Hope, Identifying Spiritual/Emotional Issues ANNOTATION: Per referral visit was made. Pt was glad to have Manager Of Finance visit. Patient shared about her juan jose and about additional stressors. Pt is grieving loss of her sister who Sunday, and she wont be able to attend services. She also has additional stressors with family conflict that troubles her. Pt expresses much sadness about that, and was tearful at times. Pt has had religion connection in the past but not currently attending. I facilitated expressions of grief and provided active listening presence. Patient was comforted by prayers and support. * Pt Handout (on AVS) - Mallory Jenkins LPN - 09/13/2022 11:15 AM EDT Images from the original note were not included. [id number] Furosemide Oral Tablet Brands: Lasix Uses This medicine is used for the following purposes: high blood pressure swelling Instructions This medicine may be taken with or without food. This medicine will work best if you take it at about the same time every day. Keep the medicine at room temperature. Avoid heat and direct light. This medicine will make you urinate more. If you have difficulty passing urine, please tell your doctor. This medicine can make you sensitive to the sun. Use sunscreen or protective clothing when in sun. It is important that you keep taking each dose of this medicine on time even if you are feeling well. If you forget to take a dose on time, take it as soon as you remember. If it is almost time for thenext dose, do not take the missed dose. Return to your normal schedule. Do not take 2 doses at one time. Tell your doctor and pharmacist about all your medicines. Include prescription and fzny-xvz-tynnzcimnjjrecus, vitamins, and herbal medicines. Do not suddenly stop taking this medicine. Check with your doctor before stopping. This medicine may affect your blood sugar levels. If you have diabetes, talk to your doctor before changing the dose of your diabetes medicine. It is very important that you follow your doctor's instructions for all blood tests. Cautions Tell your doctor and pharmacist if you ever had an allergic reaction to a medicine. Some patients taking this medicine have experienced serious side effects. Please speak with your doctor to understand the risks and benefits associated with this medicine. Do not use the medication any more than instructed. This medicine may cause dizziness or fainting, especially after exercising or in hot weather. Be very careful when standing or sitting up quickly. Your ability to stay alert or to react quickly may be impaired by this medicine. Do not drive or operate machinery until you know how this medicine will affect you. Please check with your doctor before drinking alcohol while on this medicine. This medicine passes into breast milk. Ask your doctor before . During , this medicine should be used only when clearly needed. Talk to your doctor about the risks and benefits. Do not start or stop any other medicines without first speaking to your doctor or pharmacist. Do not share this medicine with anyone who has not been prescribed this medicine. Side Effects The following is a list of some common side effects from this medicine. Please speak with your doctor about what you should do if you experience these or other side effects. constipation dizziness dry mouth lack of energy and tiredness headaches high blood sugar low blood pressure red, burning, or itchy skin stomach upset or abdominal pain increased urinary frequency blurring or changes of vision If you have any of the following side effects, you may be getting too much medicine. Please contactyour doctor to let them know about these side effects. confusion drowsiness or sedation fainting numbness or tingling in hands and feet irritability muscle pain or weakness tight or rigid muscles thirst unsteadiness while walking Call your doctor or get medical help right away if you notice any of these more serious side effects: shallow, irregular breathing changes in memory, mood, or thinking ear problems (ringing in the ears, hearing loss) fast or irregular heart beats signs of kidney damage (such as bloody or bubbly urine, or changes in urine color or amount) kidney stones signs of liver damage (such as yellowing of eye or skin, dark urine, or unusual tiredness) seizures light colored stool severe or persistent vomiting A few people may have an allergic reaction to this medicine. Symptoms can include difficulty breathing, skin rash, itching, swelling, or severe dizziness. If you notice any of these symptoms, seek medical help quickly. Extra Please speak with your doctor, nurse, or pharmacist if you have any questions about this medicine. [email or web address] IMPORTANT NOTE: This document tells you briefly how to take your medicine, but it does not tell youall there is to know about it. Your doctor or pharmacist may give you other documents about your medicine. Please talk to them if you have any questions. Always follow their advice. There is a more complete description of this medicine available in Beninese. Scan this code on your smartphone or tablet or use the web address below. You can also ask your pharmacist for a printout. If you have any questions, please ask your pharmacist. The display and use of this drug information is subject to Terms of Use. Copyright(c) 2022 [employer]. 1927-6328 [facility]. All rights reserved. This information is not intended as a substitute for professional medical care. Always follow your healthcare professional's instructions. * Pt Handout (on AVS) - Mallory Jenkins LPN - 09/13/2022 11:15 AM EDT Images from the original note were not included. 66779-7 Aspirin Delayed Release Oral Tablet Brands: Aspir-Low, Ramona Aspirin, Ecotrin, Miniprin, Finney Aspirin Uses This medicine is used for the following purposes: fever inflammatory disease pain prevent blood clots prevent stroke prevent heart attack Instructions Swallow the medicine without crushing or chewing it. Sit or stand upright for 10 minutes after taking the medicine. Do not lie down. Swallow with a full glass (8 oz) of water unless your doctor gives you different instructions. You may take with food to prevent stomach upset. Keep the medicine at room temperature. Avoid heat and direct light. If you are using this medicine regularly, it is important to take each dose of medicine on time. Keep taking the medicine even if you feel well. If you forget to take a [...] about all medicines taken. Include prescription and gwxb-zwk-grfumto medicines, vitamins, and herbal medicines. Speak with your doctor or pharmacist before starting or stopping any medicine. Tell your doctor if symptoms do not get better or if they get worse. Talk to your doctor before taking other medicines, including aspirins and ibuprofen containing products. Speak to your doctor about which medicines are safe to use while you are on this medicine. Cautions IMPORTANT: Children and teenagers should not use medications containing aspirin for cold and flu symptoms or chickenpox. Tell your doctor and pharmacist if you ever had an allergic reaction to a medicine. There is an increased risk of bleeding while on this medicine, please tell your doctor or nurse if you notice any excessive bleeding or bruising. Do not use the medication any more than instructed. If you drink more than a few alcoholic beverages each day, ask your doctor whether you should be onthis medicine. Avoid smoking while on this medicine. Smoking may increase your risk for stomach bleeding. Contact your doctor if you notice a change in the amount or darkening of your urine. Tell the doctor or pharmacist if you are , planning to be , or . Side Effects The following is a list of some common side effects from this medicine. Please speak with your doctor about what you should do if you experience these or other side effects. stomach upset or abdominal pain If you have any of the following side effects, you may be getting too much medicine. Please contactyour doctor to let them know about these side effects. ringing in the ears Call your doctor or get medical help right away if you notice any of these more serious side effects: severe or persistent abdominal pain bleeding that is severe or takes longer to stop coughing up blood or vomit that looks like coffee grounds fever swelling in the neck or throat shortness of breath dark, tarry stool urinating less often A few people may have an allergic reaction to this medicine. Symptoms can include difficulty breathing, skin rash, itching, swelling, or severe dizziness. If you notice any of these symptoms, seek medical help quickly. Extra Please speak with your doctor, nurse, or pharmacist if you have any questions about this medicine. [email or web address] IMPORTANT NOTE: This document tells you briefly how to take your medicine, but it does not tell youall there is to know about it. Your doctor or pharmacist may give you other documents about your medicine. Please talk to them if you have any questions. Always follow their advice. There is a more complete description of this medicine available in Beninese. Scan this code on your smartphone or tablet or use the web address below. You can also ask your pharmacist for a printout. If you have any questions, please ask your pharmacist. The display and use of this drug information is subject to Terms of Use. Copyright(c) 2022 [employer]. 2771-6629 [facility]. All rights reserved. This information is not intended as a substitute for professional medical care. Always follow your healthcare professional's instructions. * Pt Handout (on AVS) - Mallory Jenkins LPN - 09/13/2022 11:15 AM EDT Images from the original note were not included. [address]38 Diabetes and Heart Disease If you have diabetes, you're 2 to 4 times more likely to have heart disease than someone without diabetes. And you're likely to get it at a younger age. This higher risk is because of diabetes. But it's also because of other risk factors for heart disease that happen in people with diabetes. But there?s good news. You can help control your health risks by making some changes in your life. You cantake steps to cut your risk for heart disease by half. This is similar to the risk in people who don't have diabetes. Take your medicines as directed each day, even if you feel fine. Your main risk factors Three major risk factors for heart disease are high blood sugar, high blood pressure, and high levels of fat in the blood (lipids). By controlling these things, you can help keep your heart and arteries healthy. This may cut your chances of a heart attack. Blood sugar. High blood sugar can make artery dobson tough and rough. Plaque is waxy material in the blood. It can then build up along the artery dobson. This makes it harder for blood to flow through the arteries. High blood sugar also raises the chances of having high blood pressure and high cholesterol. Blood pressure. When blood pressure is high all the time, it causes your heart to work harder topump blood. Artery dobson become damaged. This makes it more likely for plaque to build up. Lipids. Your body needs some blood fats (lipids) to stay healthy. But lipid levels that are too high can harm artery dobson. Lipids include cholesterol and triglycerides. There are 2 kinds of cholesterol. LDL (?bad?) cholesterol can damage the arteries. But HDL (?good?) cholesterol helps clear LDL from the blood vessels. This helps keep the arteries healthy. When blood sugar is high, the level of triglycerides in the blood may also be high. This can also cause plaque to form. Other risk factors Certain lifestyle factors can raise levels of your blood sugar, blood pressure, and lipids. Higher levels raise your risk for heart disease: Smoking. Smoking damages the lining of your arteries. This allows plaque to build up in the artery dobson. It also narrows the arteries. This can raise blood pressure and cause chest pain (angina).Smoking also raises your risk of getting type 2 diabetes. Also don't use e-cigarette, or vaping, products. Not being active. Not being active makes it harder for your heart to do its work. Inactivity is linked to many other problems, such as high blood pressure and high cholesterol levels. Inactivity also increases your risk of getting type 2 diabetes. Being overweight. Being overweight makes it harder for your body to use insulin. It also makes your heart work too hard. Being overweight is also 1 of the main risk factors leading to type 2 diabetes, Changes you can make The simple steps below can help keep your risk factors under control. Work with your healthcare team to reach your goals. Quit smoking. Quitting smoking could save your life. Smoking harms the lining of the blood vessels and raises blood pressure. It also affects how your body uses insulin. This makes it harder to keep blood sugar under control. If you smoke and need help quitting, talk with your healthcare team. Test your blood sugar. Checking your blood sugar is the only way to know if it's under control. Test your blood sugar yourself. Also get tested in the lab, as directed. Check your blood pressure and lipids. Monitoring your blood pressure and lipid levels can help you stay at safe levels. Visit your healthcare team as scheduled. Take medicines as directed. This can help control blood sugar, blood pressure, blood clotting, and cholesterol levels. Several medicines for diabetes also lower your risk for heart attacks and strokes. Eat healthy. Eating healthy foods can cut your risk factors and help you lose weight. Try to limit the amount of processed or refined carbohydrates you eat at one time. Cut back on your total calories. Eat foods low in saturated fat and cholesterol. Eat fiber, including vegetables and whole grains, and cut down on salt. A dietitian or varnish melter helper can help make a meal plan that works for you?even if you're on a limited budget. Limit alcohol. Drinking alcohol even in low or moderate amounts can increase your body's sensitivity to insulin. But it also places you at greater risk for low blood sugar reactions. Be active. Physical exercise can help reduce your weight, strengthen your heart, and lower your lipid levels and blood pressure. Exercise and activity are good for your whole body. Talk to your healthcare team about increasing your activity safely over time. Keep your appointments. Regular visits with your healthcare provider help you stay healthy. Go in for checkups and lab tests as scheduled. Last Reviewed Date: 03/16/202119995470-1512 [facility]. All rights reserved. This information is not intended as a substitute for professional medical care. Always follow your healthcare professional's instructions. * Pt Handout (on AVS) - Mallory Jenkins LPN - 09/13/2022 11:14 AM EDT Images from the original note were not included. 84746 Diabetes and Kidney Disease Diabetes makes your body less able to use the foods you eat as sources of energy. As a result, sugar that the body uses as fuel (glucose) builds up in the blood. Over time, having too much glucose inyour blood can harm blood vessels and kidneys. By controlling diabetes, you can stay at a healthy blood glucose level. And you can slow or prevent kidney damage. Americans, , and Hispanics and Latinos have diabetes, chronic kidney disease, and kidney failure at rates higher than whites. People with diabetes should have their kidney function measured at least once a year with blood and urine tests. Having diabetes is the most common reason for needing dialysis or a kidney transplant. Note Visit your healthcare provider as scheduled. Follow your diet To get the most energy from the foods you eat and feel your best, you may have to follow a special diet. Work closely with your healthcare team. They can help you make a meal plan that's right for you. You may also need to: Eat less protein. Drink less fluid. Limit salt (sodium) intake. Eat foods that are low in phosphorus and potassium. Don't take or lower the amount of certain medicines that affect or are processed by the kidneys. Take insulin and diabetes medicine as directed Insulin is a hormone that helps your body use glucose. You may give yourself insulin to increase your body?s supply. Or you may take other medicines to help your body release more insulin or use insulin better. The stage of your kidney disease can reduce the amount of insulin your body needs. So your insulin injections or other medicine may be adjusted. Talk with your provider if your blood glucose level is often too low. Closely watch your blood glucose with a meter as directed by your provider. Threetypes of blood pressure medicines help people with both diabetes and high blood pressure reduce their risk of getting kidney disease. And reduce the risk of worsening existing kidney disease. These medicines are: Angiotensin-converting enzyme (ALESSIA) inhibitors Angiotensin receptor blockers (ARBs) Sodium-glucose co-transporter 2 (SGLT2) inhibitors Studies show these medicines work even in people with diabetes who don't have high blood pressure. Your provider will monitor how much protein your kidneys release into the urine as a sign of how diabetes is affecting your kidneys. One or two times a year, you'll also need a blood test to see how your kidneys are processing other substances. Controlling these other risk factors for kidney disease and diabetes will also help slow kidney disease progression: Quitting smoking as soon as possible, if you smoke Controlling high blood pressure Limiting alcohol Staying at a healthy body weight Getting regular physical activity Stay active Exercise helps the body use glucose. For best results: Talk with your provider before starting a fitness program. Ask your provider what activities you should do, how often you should exercise, and for how long. Eat 1 to 2 hours before you exercise. Check your blood sugar right before you exercise to see ifit's safe to exercise at that time. Keep a pack of diabetes supplies and snacks close at hand. These snacks can help prevent low blood sugar (hypoglycemia). Always wear a medic alert necklace, bracelet, or information tag, which states that you have diabetes and/or other health concerns. Last Reviewed Date: 05/17/202119992425-1178 [facility]. All rights reserved. This information is not intended as a substitute for professional medical care. Always follow your healthcare professional's instructions. * Pt Handout (on AVS) - Mallory Jenkins LPN - 09/13/2022 11:14 AM EDT [id number] Discharge Instructions for Heart Failure The heart is a muscle that pumps oxygen-rich blood to all parts of the body. When you have heart failure, the heart is not able to pump as well as it should. Blood and fluid may back up into the lungs. Some parts of the body don?t get enough oxygen-rich blood to work normally. These problems lead to the symptoms of heart failure. Heart failure can occur because of an injury to the heart or from natural processes. You can control symptoms of heart failure with some lifestyle changes and by following your doctor's advice. Activity Ask your healthcare provider about an exercise program. Simple activities such as walking or gardening can help. Exercising most days of the week can make you feel better. Don't be discouraged if your progress is slow at first. Rest as needed. Stop activity if you get symptoms such as chest pain, lightheadedness, or shortness of breath. Find activities that you enjoy. Examples might be brisk walking, dancing, swimming, and gardening. These will help you stay active and strengthen your heart. Ask your healthcare provider about cardiac rehab. This is a program that helps you to exercise safely. Diet Follow a heart healthy diet. And make sure to limit the salt (sodium) in your diet. Salt causes your body to hold water. This makes your heart work harder because there is more fluid for the heart topump. Limit your salt as directed by your healthcare provider by doing the following: Limit canned, dried, packaged, and fast foods. Don't add salt to your food. Season foods with herbs instead of salt. Watch how much liquids you drink. Drinking too much can make heart failure worse. Talk with yourhealthcare provider about how much you should drink each day. Limit the amount of alcohol you drink. It may harm your heart. Women should have no more than 1 drink a day. Men should have no more than 2 a day. Ask that your meals have no added salt when you eat out. Talk with your healthcare provider before using salt substitutes. They often have potassium in them. This may not be good for your health. This will depend on how well your kidneys are working andwhat medicines you?re taking. Some people need extra potassium. Others don?t. Tobacco It's important to quit if you smoke. Smoking increases your chances of having a heart attack by harming the blood vessels that provide oxygen to your heart. This makes heart failure worse. Quitting smoking is the number one thing you can do to improve your health. Enroll in a stop-smoking program to improve your chances of success. Talk with your healthcare provider about medicines or nicotine replacement therapy. Also ask your healthcare provider about smoking cessation support groups. Medicine Take your medicines exactly as prescribed. Learn the names and purpose of each of your medicines. Keep an accurate medicine list and current dosages with you at all times. Don't skip doses. If you miss a dose of your medicine, take it as soon as you remember. If you miss a dose and it's almost timefor your next dose, just wait and take your next dose at the normal time. Don't take a double dose. If you are unsure, call your doctor's office. Make sure not to mix up your medicines or forget whatyou've taken the same day. Refill your prescriptions before you run out of medicine. Talk with yourhealthcare provider if you have trouble with the cost of your medicines. Weight monitoring Weigh yourself every day. A sudden weight gain can mean your heart failure is getting worse. Weigh yourself at the same time of day and in the same kind of clothes. Ideally, weigh yourself first thing in the morning after you empty your bladder, but before you eat breakfast. Your healthcare provider will show you how to track your weight. They will also tell you when you should call if you have asudden, unexpected increase in your weight. In general, your healthcare provider may ask you to report if your weight goes up by more than 2 pounds in 1 day, 5 pounds in 1 week, or whatever weight gain you were told by your doctor. This is a sign that you are retaining more fluid than you should be. Clues to weight gain include checking yourankles for swelling, or noticing you are short of breath when you lie down. Follow-up care Have a follow-up appointment as instructed. Depending on the type and severity of heart failure youhave, you may need follow-within 7 days from hospital discharge. Keep appointments for checkups andlab tests that are needed to check your medicines and condition. Recognize that your health and even survival depend on you following your provider's advice. Symptoms Heart failure can cause a variety of symptoms. They include: Shortness of breath Trouble breathing at night, especially when you lie down Swelling in the legs and feet or in the belly (abdomen) Becoming easily tired Irregular or rapid heartbeat Weakness or lightheadedness Swelling of the neck veins It's important to know what to do if symptoms get worse or if you develop signs of worsening heart failure. Keep track of how you feel each day. Report any changes to your healthcare provider. When to call your healthcare provider Call your healthcare provider right away if you have any of these signs of worsening heart failure: Sudden weight gain. This means more than 2 pounds in 1 day or 5 pounds in 1 week, or whatever weight gain you were told to report by your doctor. Trouble breathing not related to being active New or increased swelling of your legs or ankles Swelling or pain in your abdomen Breathing trouble at night. This means waking up short of breath or needing more pillows to breathe. Frequent coughing that doesn't go away Feeling much more tired than usual Call 911 Call 911 right away if you have: Severe shortness of breath, such that you can't catch your breath even while resting Severe chest pain that does not resolve with rest or nitroglycerin [place], foamy mucus with cough and shortness of breath An ongoing rapid or irregular heartbeat Passing out or fainting Stroke symptoms such as sudden numbness or weakness on one side of your face, arm, or leg or sudden confusion, trouble speaking or vision changes Last Reviewed Date: 04/16/202119992767-8930 [employer]. All rights reserved. This information is not intended as a substitute for professional medical care. Always follow your healthcare professional's instructions. * Pt Handout (on AVS) - Mallory Jenkins LPN - 09/13/2022 11:14 AM EDT Images from the original note were not included. [id number] Heart Failure and Depression Heart failure is an ongoing (chronic) health problem. Heart failure doesn?t mean your heart stops working. It means your heart doesn?t pump as well as it should. This leads to problems in many parts of the body. Some people have more than 1 health problem at a time. You may also have depression if you have been diagnosed with heart failure. You may have depression if you feel down most days or are having problems with appetite or sleep. Depression is as real and serious an illness as heart failure. It makes you feel sad and helpless. Itgets in the way of your life and relationships. It interferes with your ability to think and act. Treatment can help improve these symptoms. Your overall health may also improve when depression is under control. How does heart failure raise your risk for depression? A person with heart failure is at a higher risk for depression. And a person with depression is at a higher risk for heart failure. Each can increase the risk of developing the other. The link between them is not completely understood. Coping with heart failure can take a lot of effort. This can affect how you feel. Some medicines can also change your mood. Many of the behaviors that often come with depression, such as smoking and alcohol abuse, are risk factors for all heart diseases. For people with heart failure, depression can also increase the risk for a heart attack or blood clots. Symptoms Many of the symptoms of heart failure may seem like symptoms of depression. It can be hard to tell which condition is causing them. It?s normal to feel sad or irritable after being diagnosed with heart failure. But if these feelings last for more than 2 weeks, depression may be the cause. Signs of depression can include: Lack of interest in activities Depressed mood or irritability Changes in sleep patterns Changes in appetite Feelings of guilt or despair Lack of energy Trouble concentrating Suicidal thoughts Diagnosing depression There's no physical test for depression. But if you have depression symptoms most of the day, everyday, for more than 2 weeks, contact your healthcare provider. This is especially important if: You have symptoms of depression that aren't getting any better You have thoughts of self-harm or suicide Your work, relationships with friends and family, or interests are affected by your mood Treatment for heart failure and depression Depression is an ongoing (chronic) health problem. But treating depression can help you feel better, Treatment can also improve your quality of life. Many treatment choices can ease your symptoms. They can help you stay motivated to improve your heart health. Symptoms of depression may disappear asheart failure gets under control. Your healthcare provider will work with you to make a treatment plan that may include: Medicines to help treat the symptoms of depression Talk therapy (psychotherapy) CBT (cognitive behavioral therapy) Peer support Regular exercise Cardiac rehab (rehabilitation) program Last Reviewed Date: 06/14/202119992042-5233 [employer]. All rights reserved. This information is not intended as a substitute for professional medical care. Always follow your healthcare professional's instructions. * Pt Handout (on AVS) - Mallory Jenkins LPN - 09/13/2022 11:14 AM EDT Images from the original note were not included. [id number] Left-Sided Heart Failure The heart is a large muscle that pumps blood throughout the body. Blood carries oxygen to all the organs including the brain, plus the muscles and skin. After the body takes the oxygen out of the blood, the blood returns to the heart. The right side of the heart collects that blood. It pumps the blood to the lungs to get fresh oxygen. This oxygen-rich blood from the lungs then returns to the left side of the heart. There it's pumped back out to the brain and rest of the body, starting the process all over. Heart failure occurs when the heart muscle does not function normally. This causes your body to retain fluids and reduces blood flow. This can be caused by heart muscle weakness or stiffness, or a heart valve problem. When the left side of the heart is failing, it can?t handle the blood it's getting from the lungs. Pressure then builds up in the veins of the lungs, causing fluid to leak into the lung tissues. Thismay be referred to as congestive heart failure. This causes you to feel short of breath, weak, or di zzy. These symptoms are often worse with physical activity, such as climbing stairs or walking up hills. Lying flat is uncomfortable and can make your breathing worse. This may make sleeping difficult. You may need to use extra pillows to raise your upper body to help you sleep well. You may also feel weak or tired and have less energy during activities. Causes of heart failure include: Coronary artery disease Heart attack (myocardial infarction or AMI) in the past High blood pressure Damaged heart valve Diabetes Obesity Alcohol abuse Illegal drug use, such as methamphetamine Inflammatory conditions including infection Genetic factors Treatment Heart failure is usually a long-term (chronic) condition. The purpose of medical treatment is to improve the pumping action of the heart, and remove extra water and fluids from the body. A number of medicines can help with this, improve symptoms, and keep the heart from becoming weaker. Cardiac procedures and surgery may help certain conditions that cause heart failure. In some cases of severe heart failure, a mechanical device can be placed in the heart to help the heart pump. A heart transplant is another choice. Another major goal is to better treat the causes of heart failure, such as diabetes, high blood pressure, and your lifestyle. Home care Check your weight every day. A sudden increase in weight gain could mean heart failure is getting worse. o Use the same scale every day. o Weigh yourself at the same time every day. Wearing similar clothing or no clothes at all. o Make sure the scale is on the floor, not on a rug. o Keep a record of your weight every day, so your healthcare provider can see it. If you are not given a log sheet for this, keep a separate journal for this purpose. Cut back on how much salt (sodium) you eat: o Your provider will tell you how much salt to have daily. This is usually 1.500 mg or less. o Limit high-salt foods. These include olives, pickles, smoked meats, processed foods, and salted potato chips. o Don't add salt to your food at the table. Use only small amounts of salt when cooking. o Don't binge on salt-heavy meals. Follow your healthcare provider's advice about how much fluid you should have. Stop smoking. Stop taking illegal drugs. Cut back on the amount of alcohol you drink. Lose weight if you are overweight. The extra weight puts a lot of stress on the heart. Stay active. Talk with your provider about an exercise program that is safe for your heart. Keep your feet elevated to reduce swelling. Ask your provider about support hose to help preventdaytime leg swelling. Follow your healthcare provider's instructions closely. Besides taking your medicine as instructed, another important part of treatment includes lifestyle changes. These include diet, physical activity, stopping smoking, and weight control. Improve your diet. Often in the hospital, people are given a heart healthy diet. This includes morefresh foods, lower saturated fat, less processed foods, and lower salt. Follow-up care Follow up with your healthcare provider, or as advised. Make sure to keep any appointments that were made for you. This can help better control heart failure. If an X-ray was done, you will be told of any new findings that may affect your care. Call 911 Call 911 if you: Become severely short of breath Feel lightheaded, or feel like you might pass out or faint Have chest pain or discomfort that is different than usual, the medicines your provider told youto use for this don't help, or the pain lasts longer than 10 to 15 minutes Develop a rapid heart rate suddenly When to seek medical advice Call your healthcare provider right away if you have any of these signs of worsening heart failure: Sudden weight gain. This means more than 2 pounds in 1 day, or 5 pounds in 1 week, or whatever weight gain you were told to report by your provider. Trouble breathing not related to being active New or increased swelling of your legs or ankles Swelling or pain in your abdomen Breathing trouble at night, waking up short of breath, or needing more pillows to elevate your upper body to help you breathe Frequent coughing that doesn?t go away Feeling much more tired than usual Last Reviewed Date: 02/14/202119998682-0473 [facility]. All rights reserved. This information is not intended as a substitute for professional medical care. Always follow your healthcare professional's instructions. * Pt Handout (on AVS) - Mallory Jenkins LPN - 09/13/2022 11:14 AM EDT [id number] Discharge Instructions for Chronic Kidney Disease (CKD) Chronic kidney disease (CKD) can happen because of many things. These include infections, diabetes,high blood pressure, kidney stones, circulation problems, and reactions to medicine. Having kidney disease means making many changes in your life. Learn as much as you can about it so that you can better adjust to these changes. It's important to remember that the main goal of treatment is to stop CKD from progressing to complete kidney failure. Treatments may vary based on the progression of CKD. Always follow your healthcare provider's directions on how to manage your condition. Here are some things you can do to help your condition. Diet changes Always discuss your diet with your healthcare provider before making any changes. Some people find the needed dietary changes overwhelming and confusing. If it feels like that to you or your family members, ask your provider to meet with a registered dietitian to get help managing the changes to your diet. Salt (sodium) in your diet Based on your condition, you may be told to eat 1,500 mg or less of sodium daily Limit processed foods such as: o Frozen dinners and packaged meals o Canned fish and meats o Pickled foods o Salted snacks o Lunch meats o Sauces o Most cheeses o Fast foods Don't add salt to your food while cooking or before eating at the table. Eat unprocessed foods to lower the sodium, such as: o Fresh turkey and chicken o Lean beef o Unsalted tuna o Fresh fish o Fresh vegetables and fruits Season foods with fresh herbs, garlic, onions, citrus, flavored vinegar, and sodium-free spice blends instead of salt when cooking. Don't use salt substitutes that are high in potassium. Ask your healthcare provider or a registered dietitian which salt substitutes to use. Don't drink softened water, because of the sodium content. Make sure to read the label on bottled water for sodium content. Check all food labels to see how much sodium is in the product. Don't take dubu-kor-gcgfyvj (OTC) medicines that contain sodium bicarbonate or sodium carbonate.Read labels carefully. If you aren't certain about an OTC medicine, talk with the pharmacist beforeusing it. Potassium in your diet Based on your condition, you may be told to eat less than 1,500 mg to 2,700 mg of potassium daily. Always drain canned foods, such as vegetables, fruits, and meats before serving. Don't eat whole-grain breads, wheat bran, and granolas. Don't eat milk, buttermilk, and yogurt. Don't eat nuts, seeds, peanut butter, dried beans, and peas. Don't eat fig cookies, chocolate, and molasses. Check all food labels to see how much potassium is in the product. Don't use salt substitutes that are high in potassium. Ask your healthcare provider or a registered dietitian which salt substitutes to use. Protein in your diet Based on your condition, your healthcare provider will talk with you about why you should limit protein in your diet. Cut back on protein. Eat less meat, milk products, yogurt, eggs, and cheese. Check all food labels to see how much protein is in the product. Phosphorus in your diet Don't drink beer, cocoa, dark rema, melissa, chocolate drinks, and canned ice teas. Don't eat cheese, milk, ice cream, pudding, and yogurt. Don't eat liver (beef, chicken), organ meats, oysters, crayfish, and sardines. Don't eat beans (soy, kidney, black, garbanzo, and northern), peas (chick and split), bran cereals, nuts, and caramels. Eat small meals often that are high in fiber and calories. You may be told to limit how much fluid you drink. Other home care Try not to wear yourself out or get overly fatigued (tired). Get plenty of rest and get more sleep at night. Move around, walk as you can, and bend your legs to prevent getting blood clots when you rest for a long period of time. Spend more time moving around as you start to feel better. Weigh yourself every day. Do this at the same time of day and in the same kind of clothes. Keep a record of your daily weights. Take your medicines exactly as directed. Keep all medical appointments. Take steps to control high blood pressure or diabetes. Talk with your healthcare provider for advice. Talk with your healthcare provider about dialysis. This procedure may help if your chronic kidney disease is progressing to end stage renal disease. Follow-up care Follow up with your healthcare provider, or as advised. When to call your healthcare provider Call your healthcare provider right away if any of the following occur: Chest pain (call 911) Trouble eating or drinking Weight loss of more than 2 pounds in 24 hours or more than 5 pounds in 7 days Weight gain of more than 3 pounds in 2 days or 5 pounds in 3 days Little or no urine output Trouble breathing Muscle aches Fever of 100.4F ( 38C) or higher, or as advised by your healthcare provider Blood in your urine or stool Bloody discharge from your nose, mouth, or ears Severe headache or a seizure Vomiting Swelling of legs or ankles Feeling depressed or anxious Last Reviewed Date: 08/14/202119997275-7495 [facility]. All rights reserved. This information is not intended as a substitute for professional medical care. Always follow your healthcare professional's instructions. * Pt Handout (on AVS) - Mallory Jenkins LPN - 09/13/2022 11:14 AM EDT Images from the original note were not included. [id number] Diet for Chronic Kidney Disease Following a special diet when you have kidney disease can help you stay as healthy as possible. Your healthcare provider or dietitian should make a special diet plan just for you. Eating right Here are some good eating rules to follow: Protein. Eating protein is important for your body. But too much protein can put a strain on your kidneys. Eating less protein may slow the progression of chronic kidney disease. Foods high in protein include meat, fish, beans, nuts, eggs, cheese, and other dairy products. A registered dietitiancan help you plan a diet that has the right amount of protein for you. Sodium. Having too much salt in your diet can make your body to hold onto (retain) water. Ask your provider or dietitian how much sodium per day you are allowed. This will help you prevent fluid buildup in your body (fluid retention). It can also help control high blood pressure. Learn to read food labels to find how much sodium is in one serving. Foods high in salt include processed meats, canned and boxed foods, sauces, salted chips and snacks, pickled foods, frozen dinners, and restaurantand fast food. Fluids. If you have advanced kidney disease, you will need to limit the water and fluids you drink. If you don?t, then too much water will build up in your body. The exact amount of fluid you can drink depends on how well your kidneys are working. Ask your provider how much water you can safely drink each day. Potassium. In advanced kidney disease, your potassium level can get dangerously high. This affects your heart. It can cause an irregular heartbeat (arrhythmia). Ask your provider or dietitian if you should limit potassium in your diet. Foods high in potassium include dairy products (milk, yogurt, cheese), beans, bananas, oranges, potatoes, tomatoes, spinach, cantaloupe, honeydew melon, dried fruits, and nuts. Some salt substitutes also contain potassium, so be sure to read the label before using them. Calcium. Calcium is important to build strong bones. But foods high in calcium are also high in phosphorus, which can take calcium from your bones. Limiting foods high in phosphorus will help keepcalcium in your bones. Ask your provider how much calcium you should get each day. Phosphorus. In advanced kidney disease, your phosphorus level can get dangerously high. This affects many systems in the body and can damage your heart. Limit your intake of phosphorus-rich foods.These include beans and peas, nuts, peanut butter, cocoa, beer, cola drinks, and dairy products. Last Reviewed Date: 10/14/202119993474-4362 [employer]. All rights reserved. This information is not intended as a substitute for professional medical care. Always follow your healthcare professional's instructions. * Pt Handout (on AVS) - Daysi Mckeon RN - 09/13/2022 6:31 AM EDT Images from the original note were not included. [id number] What Is Heart Failure? The heart is a muscle that pumps oxygen-rich blood to all parts of the body. When you have heart failure, the heart is not able to pump as well as it should. Blood and fluid may back up into the lungs, and some parts of the body don?t get enough oxygen-rich blood to work normally. These problems lead to the symptoms you feel. When you have heart failure With heart failure, not enough oxygen-rich blood leaves the heart with each beat. There are 2 typesof heart failure. Both affect how well the left ventricles can pump blood. You may have one or bothtypes. Systolic heart failure. The heart muscle becomes weak and enlarged. It can?t pump enough oxygen-rich blood forward to the rest of the body when the ventricles contract. The measurement of how much blood your heart pumps out with each beat is called ejection fraction. In systolic heart failure, the ejection fraction is lower than normal. This can cause blood to back up into the lungs and cause shortness of breath and eventually ankle swelling (edema). This is also known as heart failure with reduced ejection fraction (HFrEF), heart failure with mildly reduced ejection fraction (HFmrEF), or heart failure with improved ejection fraction (HFimpEF). Diastolic heart failure. The heart muscle becomes stiff. It doesn?t relax normally between contractions. This keeps the ventricles from filling with blood as they should. Ejection fraction is often in the normal range. This can still lead to the backup of blood into the body and affect the organs such as the liver. This is also called heart failure with preserved ejection fraction, or HFpEF. Recognizing heart failure symptoms When you have heart failure, you need to pay close attention to your body and how you feel, every single day. That way, if a problem occurs, you can get help before it becomes too severe. You'll needto watch for changes in your symptoms. As long as symptoms stay about the same from one day to the next, your heart failure is stable. But if symptoms start to get worse, it's time to take action. Signs and symptoms of worsening heart failure include: Rapid weight gain from fluid buildup Shortness of breath, especially when lying down flat Fast heart rate Cough that won't go away Swelling, especially in the feet (edema), legs, or abdomen Tiredness (fatigue) Nausea or loss of appetite How heart failure affects your body When the heart doesn't pump enough blood, body chemicals (hormones) are sent to increase the amountof work the heart does. Some hormones make the heart grow larger. Others tell the heart to pump faster. As a result, the heart may pump more blood at first, but it can't keep up with the ongoing demands. So, the heart muscle becomes even more weak. Over time, even less blood is pumped through the heart. This leads to problems throughout the body as organs start to feel the effects of a long-term lack of oxygen. If not treated, over time this can cause problems with your lungs, liver, and kidneys. Long-term (chronic) leg swelling (edema) can also cause skin changes and breakdown. A weak heart itself can eventually cause a severe decline in health and possible if left untreated. What is ejection fraction? Left ventricular ejection fraction (LVEF) is a measurement of how well your heart pumps blood. It measures how much blood in the heart's ventricle is pumped out (ejected) with each heartbeat. This ismeasured to help diagnose heart failure. A healthy heart pumps at least half of the blood from the ventricles with each beat. This means a normal ejection fraction is around 50% to 70%. There are four groupings of HF measured through LVEF. HFrEF. LVEF is 40% or less. (systolic HF) HFmrEF. LVEF is 41% to 49% with higher filling pressure in the left ventricle. (systolic HF) HFimpEF. A past LVEF less than 40% and a follow-up amount of LVEF greater than 40%. (systolic HF) HFpEF. LVEF is 50% or more with higher filling pressure in the left ventricle. (diastolic HF) Your healthcare provider will calculate ejection fraction from an echocardiogram or other tests. Your healthcare provider can talk with you about treatment options and how to improve your EF. My ejection fraction Date: Ejection fraction: Test used: How daily issues affect your health Many things in your daily life impact your health. This can include transportation, money problems,housing, access to food, and child care giver. If you can?t get to medical appointments, you may not receive the care you need. When money is tight, it may be difficult to pay for medicines. And living farfrom a grocery store can make it hard to buy healthy food. If you have concerns in any of these or other areas, talk with your healthcare team. They may know of local resources to assist you. Or they may have a staff person who can help. Last Reviewed Date: 04/16/202119994799-7201 [facility]. All rights reserved. This information is not intended as a substitute for professional medical care. Always follow your healthcare professional's instructions. * Care Plan - Daysi Mckeon RN - 09/13/2022 6:02 AM EDT Clinical Goal(s): Patient will report no chest pain the remainder of this shift (09/13/22 0250) Possible barriers to meeting goal(s)/advancing plan of care: disease process Stability of the patient: Moderately stable - low risk of patient condition declining or worsening Summary regarding today's goal(s): Met: Patient reported no chest pain Recommendations: continue to monitor patient for chest pain * Ancillary Progress Note - Kira Godinez RN - 09/13/2022 3:05 AM EDT Patient ambulated in room to bed with no issues. Patient is AO x4 and VS stable. Admission questions are complete. Patient is oriented to room and call madden within reach. Patient needs nothing further at this time. Dual Licensed Skin Assessment completed by Kira Godinez RN and Daysi Mckeon RN. The patient is/has a N/A Skin Breakdown (includes non blanchable erythema): No * Communication - Iris Nielsen RN - 09/13/2022 2:26 AM EDT Hand-Off - Nurse Communication Note Name: Sahra Rodríguez Location: X Date: 09/13/2022 Time: 2:26 AM Sending to: [id number] Safety Concerns: None Allergies: Eggs or egg-derived products Code Status: No code status on file Isolation: None n/a Isolation flowsheet: Special Needs: Special Needs comments: Attention to: 3B Report from: Iris Nielsen RN Phone extension: [phone] Patient arriving via: Wheelchair Reason for SBAR handoff: Admission Situation/Background Admission date: 09/12/2022 Patient Service: Hospitalists [[id number]] Attending Provider: Toyin Morris MD Admitting diagnosis: Chest pain Chief Complaint: Chest Pain Problem list: Active Problems: * No active hospital problems. * Resolved Problems: * No resolved hospital problems. * Level of Care: Med Surg [3] Assessment Vital Signs: BP: 164/88 (09/13/22199) Temp: 36.7 C (98.1 F) (09/12/222218) Pulse: 101 (09/13/22199) Resp: 18 (09/13/22199) SpO2: 97 % (09/13/220) Weight: 102.1 kg (225 lb) (09/12/222218) Fall Scale: Fall Score: 15 (09/12/222231) Neurological: [place] Coma Scale Eyes Open: Spontaneous (09/12/222218) Best Verbal Response: Verbally appropriate for age (09/12/222218) Best Motor Response: Obeys commands appropriate for age (09/12/222218) Coma Score: 15 (09/12/222218) Additional Neurological Information: AOx4 Respiratory: Respiratory WNL: WNL- within normal limits (09/12/222232) Cough: Non-Productive;Occasional (09/12/222232) Depth/Rhythm: Regular (09/12/222232) Dyspnea Occurance: None (09/12/222232) Effort: Unlabored (09/12/222232) Additional Respiratory Information: congested Cardiac: Rhythm: Regular (09/12/222232) Extremities: +Sensation;Right;Left;Lower;Upper (09/12/222232) Pulses Right: Radial +;Dorsalis Pedis + (05/30/23 2233) Pulses Left: Post Tibial +;Dorsalis Pedis + (09/12/222232) Edema: No (09/12/222232) Additional Cardiac Information: chest pain has mostly gone away GI/: Additional GI/ Information: n/a Integumentary: Skin Description: Warm;Dry (09/12/222232) Skin Color: Flesh Tone (09/12/222232) Additional Integumentary Information: n/a Restraints: No orders of the defined types were placed in this encounter. Lines: Labs: Labs This Encounter COMPREHENSIVE METABOLIC PANEL - Abnormal; Notable for the following components: Result Value Ref Range Creatinine 1.4 0.5 - 1.0 mg/dL Estimated Glomerular Filtration Rate 39 >=60 mL/min Glucose 176 70 - 120 mg/dL All other components within normal limits TROPONIN T, HIGH SENSITIVITY - Abnormal; Notable for the following components: Troponin T, High Sensitivity 28 <=14 ng/L All other components within normal limits CBC - Abnormal; Notable for the following components: HGB 10.3 12.0 - 15.3 g/dL HCT 32.6 36.0 - 45.2 % All other components within normal limits TROPONIN T, HIGH SENSITIVITY - Abnormal; Notable for the following components: Troponin T, High Sensitivity 32 <=14 ng/L All other components within normal limits DIFFERENTIAL, AUTOMATED - Normal RESPIRATORY PATHOGEN PANEL, PCR - Normal EXTRA LIGHT BLUE TOP CBC WITH WBC DIFFERENTIAL Narrative: The following orders were created for panel order CBC WITH WBC DIFFERENTIAL. Procedure Abnormality Status --------- ------ CBC[[id number]] Abnormal Final result DIFFERENTIAL, AUTOMATED[[id number]] Normal Final result Please view results for these tests on the individual orders. Diet: No orders of the defined types were placed in this encounter. Additional Diet Information: n/a Intake and Output: No intake or output data in the 24 hours ending 09/13/22225 Patient Belongings and Home Medications Patient Belongings at Bedside Belongings at Bedside: Clothing (09/12/222231) Patient Medications Medications Brought by Patient?: No (09/12/222231) Recommendations/Follow up Goals/Plan of Care: cardiac rule out Consults not completed: n/a Anticipated tests/studies/procedures: n/a Medication Reconcilliation completed for this Admission? No * ED Brand Marketing Coordinator Note - Iris Nielsen RN - 09/13/2022 1:11 AM EDT 0110 - pt medicated per JUN. Labs and resp swab collected and sent. Pt resting on stretcher with call madden in reach. No needs at this time. * ED Brand Marketing Coordinator Note - Loraine Ulloa RN - 09/12/2022 10:34 PM EDT Pt here with c/o chest discomfort. Pt reports she has had centralized chest discomfort that worsenswith cough. Pt reports having congestion and cough x2 weeks. In addition, pt's sister yesterday. Pt states, "my nerves are shot." Pt reports taking OTC cough and cold medication. documented in this encounter Plan of Treatment Upcoming Encounters Date Type Specialty Care Team Description 11/02/2022 Office Visit Family Medicine Mahogany Moncada CRNP [address] [facility] SAVANNAH Padilla [id number] Health Maintenance Due Date Last Done Comments [...] 03/19/2022, Additional history exists HbA1c 03/15/2023 09/13/2022, 0711/2021, 02/28/2021, Additional history exists CKD HGB USE SMARTSET 05279 09/14/202309/13, 09/12/2022, 09/12/2022, Additional history exists CKD PHOS USE SMARTSET 02113 09/14/202308/16, 03/19/2022, 10/21/2021 DXA Scan 03/11/2026 03/11/2019 [...] Diagnosis Comments GLUCOSE METER, POINT OF CARE [facility] 09/13/2022 4:27 PM EDT GLUCOSE METER, POINT OF CARE [facility] 09/13/2022 12:05 PM EDT ECHO, COMPLETE (2D), TRANS-THORACIC Routine 09/13/2022 9:45 AM EDT Chest pain, unspecified type GLUCOSE METER, POINT OF CARE [facility] 09/13/2022 8:12 AM EDT TROPONIN T, HIGH SENSITIVITY Routine 09/13/2022 5:21 AM EDT HEMOGLOBIN A1C Routine 09/13/2022 5:21 AM EDT BNP (NT-PROBNP) Add-on 09/13/2022 5:21 AM EDT BASIC METABOLIC PANEL Routine 09/13/2022 5:21 AM EDT PHOSPHORUS Routine 09/13/2022 5:21 AM EDT CBC Routine 09/13/2022 5:21 AM EDT MAGNESIUM Routine 09/13/2022 5:21 AM EDT PA ECG ROUTINE ECG W/LEAST 12 LDS I&R ONLY STAT 09/13/2022 1:54 AM EDT Chest pain TROPONIN T, HIGH SENSITIVITY STAT 09/13/2022 1:06 AM EDT RESPIRATORY PATHOGEN PANEL, PCR STAT 09/13/2022 1:06 AM EDT EXTRA LIGHT BLUE TOP Routine 09/12/2022 11:15 PM EDT DIFFERENTIAL, AUTOMATED STAT 09/12/2022 11:15 PM EDT TROPONIN T, HIGH SENSITIVITY STAT 09/12/2022 11:15 PM EDT COMPREHENSIVE METABOLIC PANEL STAT 09/12/2022 11:15 PM EDT CBC WITH WBC DIFFERENTIAL STAT 09/12/2022 11:15 PM EDT CBC STAT 09/12/2022 11:15 PM EDT XR CHEST 2 VIEWS STAT 09/12/2022 11:0 6 PM EDT HC ECG TRACING ONLY STAT 09/12/2022 1 0:22 PM EDT Chest pain documented in this encounter Results * (ABNORMAL) GLUCOSE METER, POINT OF CARE (09/13/2022 4:27 PM EDT) Glucose Meter 126(H) 70 - 120 mg/dL 09/13/2022 4:41 PM EDT [facility] Blood Whole blood specimen / Unknown 09/13/2022 4:27 PM EDT 09/13/2022 4:41 PM EDT Kira Nicholas MD LAB POINT OF CARE TEST DOCKED DEVICE UNSOLICITED RESULTS Performing Organization Address [facility] Co de Phone Number [facility] [address] [place] [address] * (ABNORMAL) GLUCOSE METER, POINT OF CARE (09/13/2022 12:05 PM EDT) Glucose Meter 147(H) 70 - 120 mg/dL 09/13/2022 12:11 PM EDT [facility] Blood Whole blood specimen / Unknown 09/13/2022 12:05 PM EDT 09/13/2022 12:11 PM EDT Kira Nicholas MD LAB POINT OF CARE TEST DOCKED DEVICE UNSOLICITED RESULTS Performing Organization Address [facility] de Phone Number [facility] [address] [place] [address] * ECHO, COMPLETE (2D), TRANS-THORACIC (09/13/2022 9:45 AM EDT) LEFT VENTRICULAR EJECTION FRACTION 20 % [facility] 09/13/2022 9:16 AM EDT Toyin Morris MD ECHOCARDIOLOGY Performing Organization Address [facility] Co de Phone Number [facility] * (ABNORMAL) GLUCOSE METER, POINT OF CARE (09/13/2022 8:12 AM EDT) Glucose Meter 134(H) 70 - 120 mg/dL 09/13/2022 12:10 PM EDT [facility] Blood Whole blood specimen / Unknown 09/13/2022 8:12 AM EDT 09/13/2022 12:10 PM EDT Kira Nicholas MD LAB POINT OF CARE TEST DOCKED DEVICE UNSOLICITED RESULTS Performing Organization Address City/[facility]/ZIP Co de Phone Number [facility] [address] [place] [phone] * (ABNORMAL) BNP, NT-PRO (09/13/2022 5:21 AM EDT) BNP, NT-Pro 4,996(H) <300 pg/mL 09/13/2022 8:43 AM EDT LABORATORY [facility] Blood Venous blood specimen / Unknown Venipuncture / Unknown 09/13/2022 5:21 AM EDT 09/13/2022 5:30 AM EDT [facility] - 09/13/2022 8:43 AM EDT Exclude Heart Failure: <300 pg/mL Diagnose Heart Failure: Age <50 yr: >450 pg/mL 50-75 yr: >900 pg/mL >75 yr: >1800 pg/mL GFR is 30-59 mL/min: >1200 pg/mL or Age-adjusted values GFR <30 mL/min: do not use, not reliable Prognostic threshold: 1000 pg/mL Kira Nicholas MD LAB BLOOD ORDERABL ES Performing Organization Address [facility] Co de Phone Number LABORATORY [address] [phone] * (ABNORMAL) HEMOGLOBIN A1C (09/13/2022 5:21 AM EDT) Hemoglobin A1C 7.2(H) 4.0 - 5.6 % 09/13/2022 5:18 PM EDT [facility] Comment:The use of HbA1c to monitor glycemic status is based on normal hemoglobin and HbA composition. This test should not be used in patients with abnormal hemoglobin that affects the half life of the red blood cell or the in vivo glycation rates. Estimated Average Glucose 160(H) <126 mg/dL 09/13/2022 5:18 PM EDT [facility] Blood Venous blood specimen / Unknown Venipuncture / Unknown 09/13/2022 5:21 AM EDT 09/13/2022 5:31 AM EDT Toyin Morris MD LAB BLOOD ORDERABLES [facility] [address] [place] [address] * PHOSPHORUS (09/13/2022 5:21 AM EDT) Phosphorus 3.4 2.5 - 4.8 mg/dL 09/13/2022 5:58 AM EDT LABORATORY [facility] Blood Venous blood specimen / Unknown Venipuncture / Unknown 09/13/2022 5:21 AM EDT 09/13/2022 5:30 AM EDT Toyin Morris MD LAB BLOOD ORDERABLES Performing Organization Address City/[facility]/ZIP Co de Phone Number LABORATORY [address] [address] * MAGNESIUM (09/13/2022 5:21 AM EDT) Magnesium 1.6 1.5 - 2.6 mg/dL 09/13/2022 5:58 AM EDT LABORATORY [facility] Blood Venous blood specimen / Unknown Venipuncture / Unknown 09/13/2022 5:21 AM EDT 09/13/2022 5:30 AM EDT Toyin Morris MD LAB BLOOD ORDERABLES Performing Organization Address City/[facility]/ZIP Co de Phone Number LABORATORY [address] [address] * (ABNORMAL) CBC (09/13/2022 5:21 AM EDT) WBC 6.80 4.00 - 10.80 K/uL 09/13/2022 5:36 AM EDT LABORATORY GL RBC 3.50 3.85 - 5.15 M/uL 09/13/2022 5:36 AM EDT LABORATORY GL HGB 9.3(L) 12.0 - 15.3 g/dL 09/13/2022 5:36 AM EDT LABORATORY GL HCT 29.9(L) 36.0 - 45.2 % 09/13/2022 5:36 AM EDT LABORATORY [facility] MCV 85.4 81.5 - 97.5 fL 09/13/2022 5:36 AM EDT LABORATORY [facility] MCH 26.6 27.0 - 34.0 pg 09/13/2022 5:36 AM EDT LABORATORY [facility] MCHC 31.1 32.0 - 36.0 g/dL 09/13/2022 5:36 AM EDT LABORATORY [facility] RDW 14.3 11.5 - 15.5 % 09/13/2022 5:36 AM EDT LABORATORY [facility] PLT 226 140 - 400 K/uL 09/13/2022 5:36 AM EDT LABORATORY [facility] MPV 10.5 6.6 - 11.1 fL 09/13/2022 5:36 AM EDT LABORATORY [facility] nRBCs 0 <=0 /100 WBCs 09/13/2022 5:36 AM EDT LAB[facility]ATORY [facility] Blood Venous blood specimen / Unknown Venipuncture / Unknown 09/13/2022 5:21 AM EDT 09/13/2022 5:31 AM EDT Toyin Morris MD LAB BLOOD ORDERABLES LABORATORY [address] [address] * (ABNORMAL) BASIC METABOLIC PANEL (09/13/2022 5:21 AM EDT) BUN 15 6 - 20 mg/dL 09/13/2022 5:58 AM EDT LABORATORY GL Creatinine 1.3(H) 0.5 - 1.0 mg/dL 09/13/2022 5:58 AM EDT LABORATORY GL Estimated Glomerular Filtration Rate 44(L) >=60 mL/min 09/13/2022 5:58 AM EDT LABORATORY GL Comment:eGFR is calculated b ased on the CKD-EPI 2020 equation Sodium 141 135 - 146 mmol/L 09/13/2022 5:58 AM EDT LABORATORY [facility] Potassium 3.8 3.5 - 5.1 mmol/L 09/13/2022 5:58 AM EDT LABORATORY GL Chloride 107 98 - 107 mmol/L 09/13/2022 5:58 AM EDT LABORATORY [facility] CO2 26 22 - 32 mmol/L 09/13/2022 5:58 AM EDT LABORATORY [facility] Anion Gap 8 7 - 15 mmol/L 09/13/2022 5:58 AM EDT LABORATORY [facility] Glucose 145(H) 70 - 120 mg/dL 09/13/2022 5:58 AM EDT LABORATORY [facility] Calcium 9.7 8.4 - 10.2 mg/dL 09/13/2022 5:58 AM EDT LABORATORY GL Blood Venous blood specimen / Unknown Venipuncture / Unknown 09/13/2022 5:21 AM EDT 09/13/2022 5:30 AM EDT Toyin Morris MD LAB BLOOD ORDERABLES Performing Organization Address City/[facility]/ZIP Co de Phone Number LABORATORY [address] [phone] * (ABNORMAL) TROPONIN T, HIGH SENSITIVITY (09/13/2022 5:21 AM EDT) Pathologist [facility] Troponin T, High Sensitivity 32(H) <=14 ng/L 09/13/2022 5:53 AM EDT LABORATORY [facility] Blood Venous blood specimen / Unknown Venipuncture / Unknown 09/13/2022 5:21 AM EDT 09/13/2022 5:30 AM EDT Toyin Morris MD LAB BLOOD ORDERABLES LABORATORY [address] [address] * EKG (09/13/2022 1:54 AM EDT) 09/13/2022 1:54 AM EDT Procedure Note Santosh Perez, DO - 09/13/2022 1:54 AM EDT REASON FOR STUDY: [id number] CONCLUSIONS: Sinus rhythm with Premature atrial complexes Left axis deviation Left bundle branch block Abnormal ECG When compared with ECG of 13-SEP-2022 01:54, No significant change Ventricular Rate: 89 Atrial Rate: 91 PA Interval: 154 QRS Duration: 146 QT/QTc: 412/501 ms P-R-T [place]: 74 : -31 : 116 degrees Emil Pj Jeferson DO EKG [facility] * RESPIRATORY PATHOGEN PANEL, PCR (09/13/2022 1:06 AM EDT) Pathologist [facility] Adenovirus by PCR Negative Negative 023 2:00 AM EDT LABORATORY [facility] Coronavirus 229E by PCR Negative Negative 09/13/2022 2:00 AM EDT LABORATORY [facility] Coronavirus HKU1 by PCR Negative Negative 09/13/2022 2:00 AM EDT LABORATORY [facility] Coronavirus NL63 by PCR Negative Negative 09/13/2022 2:00 AM EDT LAB[facility]ATORY [facility] Coronavirus OC43 by PCR Negative Negative 09/13/2022 2:00 AM EDT LAB[facility]ATORY [facility] Coronavirus SARS-CoV-2 by PCR Negative Negative 09/13/2022 2:00 AM EDT LAB[facility]ATORY [facility] Human Metapneumovirus by PCR Negative Negative 09/13/2022 2:00 AM EDT LAB[facility]ATORY [facility] Rhinovirus/Enterovi sukhwinder by PCR Negative Negative 09/13/2022 2:00 AM EDT LABORATORY [facility] Influenza A Virus by PCR Negative Negative 09/13/2022 2:00 AM EDT LAB[facility]ATORY [facility] Influenza B Virus by PCR Negative Negative 09/13/2022 2:00 AM EDT LAB[facility]ORY [facility] Parainfluenza Virus 1 by PCR Negative Negative 09/13/2022 2:00 AM EDT LAB[facility]ATORY [facility] Parainfluenza Virus 2 by PCR Negative Negative 09/13/2022 2:00 AM EDT LAB[facility]ATORY [facility] Parainfluenza Virus 3 by PCR Negative Negative 09/13/2022 2:00 AM EDT LAB[facility]ATORY [facility] Parainfluenza Virus 4 by PCR Negative Negative 09/13/2022 2:00 AM EDT LAB[facility]ATORY [facility] Respiratory Syncytial Virus by PCR Negative Negative 09/13/2022 2:00 AM EDT LAB[facility]ATORY [facility] Bordetella pertussis by PCR Negative Negative 09/13/2022 2:00 AM EDT LABORATORY [facility] Chlamydia pneumoniae by PCR Negative Negative 09/13/2022 2:00 AM EDT LAB[facility]ATORY [facility] Mycoplasma pneumoniae by PCR Negative Negative 09/13/2022 2:00 AM EDT LAB[facility]ATORY [facility] Bordetella parapertussis by PCR Negative Negative 09/13/2022 2:00 AM EDT LABORATORY [facility] Comment: The primers that detect Rhinovirus may cross react with some Enterorviruses. The validation of bronchial specimens, tracheal aspirates, and throats for this assay was developed and performance characteristics determined by [employer]. The validation of alternate specimen types has not been cleared or approved by the U.S. Food and Drug Administration (FDA). It has been determined that such clearance or approval is not necessary. Upper Respiratory Mid-turbinate nasal swab / Unknown Non-blood Collection / Unknown 09/13/2022 1:06 AM EDT 09/13/2022 1:12 AM EDT Emil Oliva [facility] LAB MICRO - GE NERAL ORDERABLES Performing Organization Address [facility]/ZIP Co de Phone Number LABORATORY [address] [phone] * (ABNORMAL) TROPONIN T, HIGH SENSITIVITY (09/13/2022 1:06 AM EDT) [facility] Troponin T, High Sensitivity 32(H) <=14 ng/L 09/13/2022 1:33 AM EDT LABORATORY [facility] Blood Venous blood specimen / Unknown Venipuncture / Unknown 09/13/2022 1:06 AM EDT 09/13/2022 1:12 AM EDT Emil Oliva [facility] LAB BLOOD ORDE RABLES Performing Organization Address [facility]/ZIP Co de Phone Number LABORATORY [address] [address] * DIFFERENTIAL, AUTOMATED (09/12/2022 11:15 PM EDT) Pathologist [facility] WBC 9.46 4.00 - 10.80 K/uL 09/12/2022 11:22 PM EDT LABORATORY [facility] Neutrophils % 69.0 40.0 - 75.0 % 09/12/2022 11:22 PM EDT LABORATORY [facility] Lymphocytes % 21.1 18.0 - 42.0 % 09/12/2022 11:22 PM EDT LABORATORY [facility] Monocytes % 7.4 1.0 - 11.0 % 09/12/2022 11:22 PM EDT LABORATORY GL Eosinophils % 2.0 0.0 - 6.0 % 09/12/2022 11:22 PM EDT LAB[facility]ATORY [facility] Basophils % 0.4 0.0 - 2.0 % 09/12/2022 11:22 PM EDT LABORATORY [facility] Immature Granulocytes % 0.1 0.0 - 2.0 % 09/12/2022 11:22 PM EDT LABORATORY [facility] Absolute Neutrophils 6.52 1.80 - 7.70 K/uL 09/12/2022 11:22 PM EDT LABORATORY [facility] Absolute Lymphocytes 2.00 1.00 - 4.80 K/ul 09/12/2022 11:22 PM EDT LABORATORY [facility] Absolute Monocytes 0.70 0.00 - 1.10 K/uL 09/12/2022 11:22 PM EDT LABORATORY [facility] Absolute Eosinophils 0.19 0.00 - 0.70 K/uL 09/12/2022 11:22 PM EDT LABORATORY [facility] Absolute Basophils 0.04 0.00 - 0.20 K/uL 09/12/2022 11:22 PM EDT [facility] Absolute Immature Granulocytes 0.01 0.00 - 0.20 K/uL 09/12/2022 11:22 PM EDT [facility] Blood Venous blood specimen / Unknown Venipuncture / Unknown 09/12/2022 11:15 PM EDT 09/12/2022 11:19 PM EDT Emil Govea DO LAB BLOOD MAT HO [facility] [address] [place] [address] * (ABNORMAL) CBC (09/12/2022 11:15 PM EDT) [facility] WBC 9.46 4.00 - 10.80 K/uL 09/12/2022 11:22 PM EDT [facility] RBC 3.74 3.85 - 5.15 M/uL 09/12/2022 11:22 PM EDT [facility] HGB 10.3(L) 12.0 - 15.3 g/dL 09/12/2022 11:22 PM EDT [facility] HCT 32.6(L) 36.0 - 45.2 % 09/12/2022 11:22 PM EDT [facility] MCV 87.2 81.5 - 97.5 fL 09/12/2022 11:22 PM EDT [facility] MCH 27.5 27.0 - 34.0 pg 09/12/2022 11:22 PM EDT [facility] MCHC 31.6 32.0 - 36.0 g/dL 09/12/2022 11:22 PM EDT [facility] RDW 14.3 11.5 - 15.5 % 09/12/2022 11:22 PM EDT [facility] PLT 246 140 - 400 K/uL 09/12/2022 11:22 PM EDT [facility] MPV 10.6 6.6 - 11.1 fL 09/12/2022 11:22 PM EDT [facility] nRBCs 0 <=0 /100 WBCs 09/12/2022 11:22 PM EDT [facility] Blood Venous blood specimen / Unknown Venipuncture / Unknown 09/12/2022 11:15 PM EDT 09/12/2022 11:19 PM EDT Emil Govea LAB BLOOD [facility] Organization Address City/State/ZIP Co de Phone Number LABORATORY [address] [address] * (ABNORMAL) TROPONIN T, HIGH SENSITIVITY (09/12/2022 11:15 PM EDT) Troponin T, High Sensitivity 28(H) <=14 ng/L 09/12/2022 11:41 PM EDT [facility] Blood Venous blood specimen / Unknown Venipuncture / Unknown 09/12/2022 11:15 PM EDT 09/12/2022 11:19 PM EDT Emil Govea DO LAB BLOOD MAT HO LAB[facility] [address], [place] [id number] * (ABNORMAL) COMPREHENSIVE METABOLIC PANEL (09/12/2022 11:15 PM EDT) BUN 16 6 - 20 mg/dL 09/12/2022 11:37 PM EDT LAB[facility] Creatinine 1.4(H) 0.5 - 1.0 mg/dL 09/12/2022 11:37 PM EDT [facility] Estimated Glomerular Filtration Rate 39(L) >=60 mL/min 09/12/2022 11:37 PM EDT LAB[facility] Comment:eGFR is calculated b ased on the CKD-EPI 2020 equation Sodium 139 135 - 146 mmol/L 09/12/2022 11:37 PM EDT LAB[facility] Potassium 3.7 3.5 - 5.1 mmol/L 09/12/2022 11:37 PM EDT [facility] Chloride 104 98 - 107 mmol/L 09/12/2022 11:37 PM EDT [facility] CO2 26 22 - 32 mmol/L 09/12/2022 11:37 PM EDT [facility] Anion Gap 9 7 - 15 mmol/L 09/12/2022 11:37 PM EDT LAB[facility] Glucose 176(H) 70 - 120 mg/dL 09/12/2022 11:37 PM EDT [facility] Albumin 4.1 3.8 - 5.0 g/dL 09/12/2022 11:37 PM EDT [facility] AST 17 10 - 35 U/L 09/12/2022 11:37 PM EDT [facility] Alkaline Phosphatase 102 35 - 130 U/L 09/12/2022 11:37 PM EDT [facility] Bilirubin, Total 0.3 <=1.2 mg/dL 09/12/2022 11:37 PM EDT [facility] Calcium 9.8 8.4 - 10.2 mg/dL 09/12/2022 11:37 PM EDT [facility] Protein 6.9 6.0 - 8.3 g/dL 09/12/2022 11:37 PM EDT [facility] ALT 12 10 - 35 U/L 09/12/2022 11:37 PM EDT [facility] Blood Venous blood specimen / Unknown Venipuncture / Unknown 09/12/2022 11:15 PM EDT 09/12/2022 11:19 PM EDT [facility] Performing Organization Address City/[facility]/ZIP Co de Phone Number LABORATORY [address] [address] * EXTRA LIGHT BLUE TOP (09/12/2022 11:15 PM EDT) Blood Venous blood specimen / Unknown Venipuncture / Unknown 09/12/2022 11:15 PM EDT 09/12/2022 11:19 PM EDT Emil Oliva [facility] BLOOD [facility] Performing Organization Address [facility] Co de Phone Number LABORATORY [address] [address] * XR CHEST 2 VIEWS (09/12/2022 11:06 PM EDT) Anatomical Region Laterality Modality Chest Digital Radiogra phy 09/12/2022 11:0 1 PM EDT Impressions 09/13/2022 12:00 AM EDT IMPRESSION: No acute cardiopulmonary findings. THIS DOCUMENT HAS BEEN ELECTRONICALLY SIGNED BY BRENDON DELATORRE MD Narrative 09/13/2022 12:00 AM EDT PROCEDURE INFORMATION: Exam: XR Chest Exam date and time: 09/12/2022 11:01 PM Age: 77 years old Clinical indication: Other: Chest pain TECHNIQUE: Imaging protocol: Radiologic exam of the chest. Views: 2 views. COMPARISON: CT PULMONARY EMBOLUS W CONTRAST 03/19/2022 3:20 AM FINDINGS: Tubes, catheters and devices: Valvular replacement device. Lungs: Unremarkable. No consolidation. Pleural spaces: Unremarkable. No pleural effusion. No pneumothorax. Heart/Mediastinum: The cardiac silhouette is enlarged. Bones/joints: Median sternotomy wires. Procedure Note Brendon Delatorre MD - 09/13/2022 PROCEDURE INFORMATION: Exam: XR Chest Exam date and time: 09/12/2022 11:01 PM Age: 77 years old Clinical indication: Other: Chest pain TECHNIQUE: Imaging protocol: Radiologic exam of the chest. Views: 2 views. COMPARISON: CT PULMONARY EMBOLUS W CONTRAST 03/19/2022 3:20 AM FINDINGS: Tubes, catheters and devices: Valvular replacement device. Lungs: Unremarkable. No consolidation. Pleural spaces: Unremarkable. No pleural effusion. No pneumothorax. Heart/Mediastinum: The cardiac silhouette is enlarged. Bones/joints: Median sternotomy wires. IMPRESSION IMPRESSION: No acute cardiopulmonary findings. THIS DOCUMENT HAS BEEN ELECTRONICALLY SIGNED BY BRENDON DELATORRE MD Emil Govea DO RADIOLOGY ([facility]) * EKG (09/12/2022 10:22 PM EDT) 09/12/2022 10:2 2 PM EDT Procedure Note Santosh Perez DO - 09/12/2022 10:22 PM EDT REASON FOR STUDY: CP CONCLUSIONS: Sinus rhythm with Premature supraventricular complexes Left bundle branch block Abnormal ECG When compared with ECG of 19-MAR-2022 10:04, Similar findings Ventricular Rate: 97 Atrial Rate: 97 PA Interval: 168 QRS Duration: 152 QT/QTc: 380/482 ms P-R-T [place]: 0 : -5 : 137 degrees Emil Govea DO EKG [facility] documented in this encounter Visit Diagnoses Diagnosis Acute chest pain- Primary Chest pain, unspecified Chest pain Chest pain, unspecified Chest pain, unspecified type Type 2 diabetes mellitus with diabetic chronic kidney disease (HCC) Type II or unspecified type diabetes mellitus with renal manifestations, not stated as uncontrolled Left bundle branch block (LBBB) MANDY (obstructive sleep apnea) Obstructive sleep apnea (adult) (pediatric) ADRIANA (generalized anxiety disorder) Generalized anxiety disorder Chronic kidney disease, stage 3b (HCC) Left heart failure (HCC) Left heart failure S/P aortic valve replacement Heart valve replaced by other means Severe obesity with body mass index (BMI) of 35.0 to 39.9 with serious comorbidity (HCC) documented in this encounter Administered Medications Inactive Administered Medications - up to 3 most recent administrations Medication Order MAR Action Action Date Dose Rate Site Acetaminophen (Tylenol) tab 650 mg 650 mg, Oral, Q6H PRN Pain, Mild, Fever >38C(100.5F), Starting on Sun09/13/22 at 0328, Until Sun09/13/22 at 2206, Maximum of 4 grams (4000 mg) per day. aspirin enteric coated tab 81 mg 81 mg, Oral, Daily(AM), First dose on Sun09/13/22 at 0900, Until Discontinued Given 09/13/2022 9:00 AM EDT 81 mg aspirin tab 325 mg 325 mg, Oral, ONCE, On Sun09/13/22 at 0115, For 1 dose Given 09/13/2022 1:06 AM EDT 325 mg atorvaSTATin (Lipitor) tab 80 mg 80 mg, Oral, Q1700, First dose on Sun09/13/22 at 1700, Until Discontinued Given 09/13/2022 5:29 PM EDT 80 mg dextrose 50 % inj 25 mL 25 mL, IV Push, PRN Hypoglycemia, Other, For blood glucose 54 - 69 mg/dL or 70 - 100 mg/dL with symptoms AND patient is unresponsive, NPO, OR unable to swallow, Starting on Sun09/13/22 at 0329, Until Sun09/13/22 at 2206, Administer IV. Recheck blood glucose after 15 minutes. Notify provider. dextrose 50 % inj 50 mL 50 mL, IV Push, PRN Hypoglycemia, Other, For blood glucose below 54 mg/dL AND patient unresponsive, NPO, OR unable to swallow, Starting on Sun09/13/22 at 0329, Until Sun09/13/22 at 2206, Administer IV. Recheck blood glucose in 15 minutes. Notify provider. Enoxaparin (Lovenox) inj 40 mg 40 mg, Subcutaneous, [id number], First dose on Grace 09/14/22 at 1000, Until Discontinued, If patient is on warfarin, inform provider if daily INR value is 2 or greater! escitalopram (Lexapro) tab 10 mg 10 mg, Oral, Daily(AM), First dose on Sun09/13/22 at 0900, Until Discontinued Given 09/13/2022 10:04 AM EDT 10 mg Furosemide (Lasix) tab 20 mg 20 mg, Oral, Daily(AM), First dose on Sun09/13/22 at 0900, Until Discontinued Given 09/13/2022 10:03 AM EDT 20 mg Furosemide (Lasix) tab 40 mg 40 mg, Oral, Daily(AM), First dose (after last modification) on Grace 09/14/22 at 0900, Until Discontinued glucagon (Glucagen) inj 1 mg 1 mg, Intramuscular, PRN Hypoglycemia, Other, If patient is unresponsive, or NPO and has no IV access, Starting on Sun09/13/22 at 032, Until Sun09/13/22 at 2206, NPO and no IV access with either [...] patient alert WITH difficulty chewing/swallowing, Starting on Sun09/13/22 at 032, Until Sun09/13/22 at 2206, Administer gel. Recheck blood glucose after 15 minutes. Notify provider. 37.5 gram tube = 15 grams glucose = 1 each Glucose (Glutose 15) 40 % gel 30 g of glucose 30 g of glucose, Oral, PRN Hypoglycemia (low sugar), Other, For blood glucose below 54 mg/dL AND patient alert WITH difficulty chewing/swallowing, Starting on Sun09/13/22 at 328, Until Sun09/13/22 at 2206, Administer gel. Recheck blood glucose after 15 minutes. Notify provider. 37.5 gram tube = 15 grams glucose = 1 each glucose chew tab 16 g 16 g, Oral, PRN Hypoglycemia, Other, For blood glucose 54 - 69 mg/dL or 70 - 100 mg/dL with symptoms and patient alert without difficulty chewing/swallowing., Starting on Sun09/13/22 at 328, Until Sun09/13/22 at 2206 hydrOXYzine HCl tab 25 mg 25 mg, Oral, ONCE, On Sun09/13/22 at 0115, For 1 dose Given 09/13/2022 1:06 AM EDT 25 mg insulin aspart (NovoLOG) inj Subcutaneous, W/MEALS AND HS, First dose on Sun09/13/22 at 0800, Until Discontinued, LOW DOSE (Elderly [...] suggested insulin dose and call covering provider. Lisinopril (Prinivil) tab 20 mg 20 mg, Oral, Daily(AM), First dose on Sun09/13/22 at 0900, Until Discontinued Given 09/13/2022 10:03 AM EDT 20 mg melatonin tab 3 mg 3 mg, Oral, HS PRN Insomnia, Starting on Sun09/13/22 at 0329, Until Sun09/13/22 at 2207 Metoprolol Tartrate (Lopressor) tab 25 mg 25 mg, Oral, BID(AM/PM), First dose on Sun09/13/22 at 0900, Until Discontinued, Hold for HR less than 60 or SBP below 100 and notify service if dose is held Given 09/13/2022 10:04 AM EDT 25 mg omeprazole (PriLOSEC) cap 20 mg 20 mg, Oral, Daily(AM), First dose on Sun09/13/22 at 0900, Until Discontinued, This med should NOT be Crushed or Chewed Given 09/13/2022 10:04 AM EDT 20 mg Polyethylene Glycol 3350 (Miralax) oral powder 17 g 17 g (1 Packet), Oral, DAILY PRN Other, If constipation not relieved by senna, Starting on Sun09/13/22 at 1105, Until Sun09/13/22 at 2207, Mix in 8 oz of water, juice, soda, coffee, or tea. senna (Senokot) 1 Tablet 1 Tablet, Oral, DAILY PRN Constipation, Starting on Sun09/13/22 at 0328, Until Sun09/13/22 at 2207 sodium chloride 0.9 % flush/inj 3 mL 3 mL, IV Push, PRN Other, Line Patency, Starting on Sun09/13/22 at 0327, Until Sun09/13/22 at 2207, Do not flush if lock, PICC, or central line not in place, IV infusing or unable to flush Given 09/13/2022 10:09 AM EDT 3 mL documented in this encounter Active and Recently Administered Medications Times are shown in EDT. Scheduled Medication Order 09/11/2022 09/12/2022 09/13/2022 aspirin enteric coated tab 81 mg 81 mg, Oral, Daily(AM), First dose on Sun09/13/22 at 0900, Until Discontinued 0900 (Given - Provid er: PEE Blackman Instructor) aspirin tab 325 mg (COMPLETED) 325 mg, Oral, ONCE, On Sun09/13/22 at 0115, For 1 dose 0106 (Given - Provid er: Iris Nielsen RN) atorvaSTATin (Lipitor) tab 80 mg 80 mg, Oral, Q1700, First dose on Sun09/13/22 at 1700, Until Discontinued 1729 (Given - Provid er: Mallory Jenkins LPN) Enoxaparin (Lovenox) inj 40 mg 40 mg, Subcutaneous, [id number], First dose on Sun09/14/22 at 1000, Until Discontinued, If patient is on warfarin, inform provider if daily INR value is 2 or greater! escitalopram (Lexapro) tab 10 mg 10 mg, Oral, Daily(AM), First dose on Sun09/13/22 at 0900, Until Discontinued 1004 (Given - Provid er: PEE Blackman Instructor) Furosemide (Lasix) tab 20 mg (CANCELED) 20 mg, Oral, Daily(AM), First dose on Sun09/13/22 at 0900, Until Discontinued 1003 (Given - Provid er: PEE Blackman Instructor) Furosemide (Lasix) tab 40 mg 40 mg, Oral, Daily(AM), First dose (after last modification) on Sun09/14/22 at 0900, Until Discontinued hydrOXYzine HCl tab 25 mg (COMPLETED) 25 mg, Oral, ONCE, On Sun09/13/22 at 0115, For 1 dose 0106 (Given - Provid er: Iris Nielsen RN) insulin aspart (NovoLOG) inj Subcutaneous, W/MEALS AND HS, First dose on Sun09/13/22 at 0800, Until Discontinued, LOW DOSE (Elderly [...] insulin dose and call covering provider. 0800 (Not Given - Pr ovider: PEE Blackman Instructor - Reason: Parameter(s) Not Met)1200 (No Insulin - Provider: Mallory Jenkins LPN - Reason: Parameter(s) Not Met)1700 (No Insulin - Provider: Mallory Jenkins LPN - Reason: Parameter(s) Not Met) Lisinopril (Prinivil) tab 20 mg 20 mg, Oral, Daily(AM), First dose on Sun09/13/22 at 0900, Until Discontinued 1003 (Given - Provid er: PEE Blackman Instructor) Metoprolol Tartrate (Lopressor) tab 25 mg 25 mg, Oral, BID(AM/PM), First dose on Sun09/13/22 at 0900, Until Discontinued, Hold for HR less than 60 or SBP below 100 and notify service if dose is held 1004 (Given - Provid er: PEE Blackman Instructor) omeprazole (PriLOSEC) cap 20 mg 20 mg, Oral, Daily(AM), First dose on Sun09/13/22 at 0900, Until Discontinued, This med should NOT be Crushed or Chewed 1004 (Given - Provid er: PEE Blackman Instructor) PRN Medication Order 09/11/2022 09/12/2022 09/13/2022 Acetaminophen (Tylenol) tab 650 mg 650 mg, Oral, Q6H PRN Pain, Mild, Fever >38C(100.5F), Starting on Sun09/13/22 at 0328, Until Sun09/13/22 at 2207, Maximum of 4 grams (4000 mg) per day. Albuterol Sulfate (Proventil) (2.5 MG/3ML) 0.083% inhalation solution 2.5 mg 2.5 mg, Nebulizer, Q4H PRN Dyspnea, Starting on Sun09/13/22 at 021, Until Sun09/13/22 at 2206 busPIRone (Buspar) tab 10 mg 10 mg, Oral, DAILY PRN Anxiety, Starting on Sun09/13/22 at 021, Until Sun09/13/22 at 2206 dextrose 50 % inj 25 mL 25 mL, IV Push, PRN Hypoglycemia, Other, For blood glucose 54 - 69 mg/dL or 70 - 100 mg/dL with symptoms AND patient is unresponsive, NPO, OR unable to swallow, Starting on Sun09/13/22 at 032, Until Sun09/13/22 at 2206, Administer IV. Recheck blood glucose after 15 minutes. Notify provider. dextrose 50 % inj 50 mL 50 mL, IV Push, PRN Hypoglycemia, Other, For blood glucose below 54 mg/dL AND patient unresponsive, NPO, OR unable to swallow, Starting on Sun09/13/22 at 032, Until Sun09/13/22 at 2206, Administer IV. Recheck blood glucose in 15 minutes. Notify provider. glucagon (Glucagen) inj 1 mg 1 mg, Intramuscular, PRN Hypoglycemia, Other, If patient is unresponsive, or NPO and has no IV access, Starting on Sun09/13/22 at 328, Until Sun09/13/22 at 2206, NPO and no IV access with either [...] patient alert WITH difficulty chewing/swallowing, Starting on Sun09/13/22 at 0329, Until Sun09/13/22 at 2206, Administer gel. Recheck blood glucose after 15 minutes. Notify provider. 37.5 gram tube = 15 grams glucose = 1 each Glucose (Glutose 15) 40 % gel 30 g of glucose 30 g of glucose, Oral, PRN Hypoglycemia (low sugar), Other, For blood glucose below 54 mg/dL AND patient alert WITH difficulty chewing/swallowing, Starting on Sun09/13/22 at 0329, Until Sun09/13/22 at 2206, Administer gel. Recheck blood glucose after 15 minutes. Notify provider. 37.5 gram tube = 15 grams glucose = 1 each glucose chew tab 16 g 16 g, Oral, PRN Hypoglycemia, Other, For blood glucose 54 - 69 mg/dL or 70 - 100 mg/dL with symptoms and patient alert without difficulty chewing/swallowing., Starting on Sun09/13/22 at 0329, Until Sun09/13/22 at 2206 melatonin tab 3 mg 3 mg, Oral, HS PRN Insomnia, Starting on Sun09/13/22 at 032, Until Sun09/13/22 at 2206 Polyethylene Glycol 3350 (Miralax) oral powder 17 g 17 g (1 Packet), Oral, DAILY PRN Other, If constipation not relieved by senna, Starting on Sun09/13/22 at 1105, Until Sun09/13/22 at 2206, Mix in 8 oz of water, juice, soda, coffee, or tea. senna (Senokot) 1 Tablet 1 Tablet, Oral, DAILY PRN Constipation, Starting on Sun09/13/22 at 0328, Until Sun09/13/22 at 2206 sodium chloride 0.9 % flush/inj 3 mL 3 mL, IV Push, PRN Other, Line Patency, Starting on Sun09/13/22 at 0327, Until Sun09/13/22 at 2206, Do not flush if lock, PICC, or central line not in place, IV infusing or unable to flush 1009 (Given - Provid er: Leslye Suarez, [facility] Instructor) documented in this encounter Additional Health Concerns Infection Onset Date Last Indicated Resolved Time Respiratory Rule-Out 09/13/2022 09/13/2022 023 2:00 AM EDT COVID-19 Rule-Out 09/13/2022 09/13/2022 09/13/2022 2:00 AM EDT documented as of this encounter Advance Directives Latest Code Status on File Code Status Date Activated Date Inactivated Comments Full Code 09/13/2022 3:29 AM 09/13/2022 10:12 PM Thi s order reflects the patients [...] the patient have Health Care Power of Molecular Spectroscopist? No Full Code 02/28/2021 8:35 AM 03/01/2021 8:18 PM Thi s order reflects the patients wishes and were consensually agreed upon. Question Answer Comments Discussion of Advance Directives occurred with: Patient Full Code 10/06/2020 12:41 AM 10/06/2020 9:21 PM This order reflects the patients wishes and were consensually agreed upon. Question Answer Comments Discussion of Advance Directives occurred with: Patient Care Teams Watch Case Polisher Relationship Specialty Start Date End Date Elías Jade MD [facility] [place] [id number] PCP - General Family Medicine 06/01/21 documented as of this encounter
--- OUTSIDE RECORDS SUMMARY | 2022-12-17 03:24 | External Medical Summary ---
Author Name Unknown Address Unknown Organization : Laboratory Report Ordering Provider Test Date Status MARKO ONEILL 09/13/2022 08:12:10 Final Observation Date Value Abnormality Reference (Units ) Status Glucose Point of Care 09/13/2022 08:12:10 134 Above high normal 70-120 (mg/dL) Final Performing Location
--- OUTSIDE RECORDS SUMMARY | 2022-12-17 03:24 | External Medical Summary ---
Author Name Unknown Address Unknown Organization [id number]:LABORATORY [facility] - [address] [id number] Laboratory Report Ordering Provider Test Date Status LAM HENRY 09/13/2022 01:06:04 Final Observation Date Value Abnormality Reference (Units ) Status Troponin T 09/13/2022 01:06:04 32 Above high normal < =14 (ng/L) Final Performing Location LABORATORY [facility] - [address] [address]
--- OUTSIDE RECORDS SUMMARY | 2022-12-17 03:25 | External Medical Summary | Summary of Care ---
Author [place] [address] Care Team Providers Care Research Development Manager Name Role Phone Elías Jade MD Primary Care Provider [phone] Reason for Visit * Reason Onset Date Comments Med Request 04/14/2022 Encounter Details Date Type Department Care Team Description 04/14/2022 Telephone [facility] [address] [place] [address] Elías Jade MD [address] [place] [address] Med Request Allergies Active Allergy Reactions Severity Noted Date Comments Eggs Or Egg-Derived Products Diarrhea 021 documented as of this encounter (statuses as of 04/18/2022) Medications Medication Sig Dispensed Refills Start Date End Date Status aspirin enteric coated 81 MG TBEC Take 1 Tab by mouth daily. 0 Active omeprazole (PRILOSEC) 20 MG CPDR Take 1 Cap by mouth daily. 0 Active Escitalopram Oxalate 10 MG Oral [...] meals . 180 Tablet 2 09/16/2021 Active Metoprolol Tartrate 25 MG Oral Tablet (Lopressor) TAKE ONE-HALF TABLET BY MOUTH TWICE A DAY 90 Tablet 3 09/18/2021 Active busPIRone HCl 10 MG Oral Tablet (Buspar)Indication s:ADRIANA (generalized anxiety disorder) TAKE ONE TABLET BY MOUTH THREE TIMES A DAY NEEDED FOR ANXIETY 270 Tablet 3 09/15/2021 Active Furosemide 20 MG Oral Tablet (Lasix)Indications :Left heart failure (HCC) Take by mouth 1 Tablet in the morning. 90 Tablet 3 10/21/2021 Active Meclizine HCl 25 MG Oral Tablet [...] BEFORE BEDTIME 90 Tablet 3 03/28/2022 Active Lisinopril 20 MG Oral Tablet (Prinivil)Indicati ons:Stage 3a chronic kidney disease (HCC),HTN, goal below 140/90 Take 1 Tablet (20 mg) by mouth every night at bedtime. 7 Tablet 0 03/31/2022 Active Fluconazole 150 MG Oral Tablet (Diflucan)Indicati ons:Yeast vaginitis Take 1 Tablet by mouth once for 1 dose. 1 Tablet 0 04/18/2022 04/18/2022 Active documented as of this encounter (statuses as of 04/18/2022) Active Problems Problem Noted Date Type 2 diabetes mellitus with stage 3b c hronic kidney disease 11/21/2021 Overview: Per CKD protocol Chronic kidney disease, stage 3b 022 Overview: Per CKD protocol Left heart failure 04/01/2021 Acute chest pain 02/28/2021 Left bundle branch block (LBBB) 02/29/20 21 [...] as of this encounter (statuses as of 04/18/2022) Resolved Problems Problem Noted Date Resolved Date Heart failure with acute decompensation, type un [...] without long-term current use of insulin 07/16/2020 0408/2020 Overview: Per CKD protocol Stage 3a chronic kidney disease 02/23/2020 11/24/2021 Overview: Per CKD protocol - Per CKD protocol Kidney disease, chronic, stage III (GFR 30-59 ml /min) 11/24/2019 02/26/2020 Overview: Per CKD protocol COPD (chronic obstructive pu lmonary disease) with chronic bronchitis 05/27/2019 05/27/2019 documented as of this encounter (statuses as of 04/18/2022) Immunizations Name Administration Dates Next Due DTaP [...] deaf or do you have serious difficulty hearing? Yes-Pt wears B/L hearing aids. 03/19/2022 Are you blind or do you have serious difficulty seeing, even when wearing glasses? No 03/19/2022 Do you have serious difficul ty walking or climbing stairs? (5 years old or older) Yes-Pt reports difficulty with climbing stairs. 03/19/2022 Do you have difficulty dress ing or bathing? (5 years old or older) No 03/19/2022 Because of a physical, menta l, or emotional condition, do you have difficulty doing errands alone such as visiting a doctor s office or shopping? (15 years old or older) No 03/19/2022 Cognitive Status Response Date of Assessm ent Because of a physical, menta l, or emotional condition, do you have serious difficulty concentrating, remembering, or making decisions? (5 years old or older No 03/19/2022 documented as of this encounter Miscellaneous Notes * Telephone Encounter - Elías Jade MD - 04/18/2022 2:20 PM EST Fluconazole sent. If symptoms do not resolve, needs to be evaluated. Elías Jade MD, PAULA Family Physician João Kingston * Telephone Encounter - KAHLIL Valera - 04/14/2022 12:58 PM EST Urinary/Genital URINARY/GENITAL: Yes Patient Gender: Female Burning: Yes Itching: Yes How long have you had these symptoms(s)? 3 days Any recent antibiotic use? No Additional Comment(s) Additional Comments: Pt called stating she has a yeast infection. Pt said she is experiencing burning and itching. * Telephone Encounter - YUAN iLu - 04/14/2022 8:54 AM EST Pt calling with complaints of yeast infection and is requesting a medication be prescribed. Pt did not want to schedule an appointment at this time. Call details was completed, please refer to this for further information. Thanks, Sheryl Clark Real Estate Services Administrator Pharmacy Refill Call Center 04/14/2022,8:56 AM documented in this encounter Plan of Treatment Upcoming Encounters Date Type Specialty Care Team Description 05/01/2022 Office Visit Family Medicine Elías Jade MD [address] [id number] 06/19/2022 Laboratory Laboratory Arias Kingston [address] [id number] 06/22/2022 Office Visit Family Medicine Teresa Hough CRNP [address] [id number] Health Maintenance Due Date Last Done Comments COVID-19 Vaccine (#1) 1945 Hepatitis C Screening 1962 Zoster Vaccines (1 of 2) 1994 Influenza Vaccine (FLU shot) (#1) 2021 07/15/2019, 02/22/2016, 03/08/2015 Alb / Creat Ratio 04/01/2022 04/01/2021, , 06/06/2019 DIABETES-HGBA1C EVERY 6 MONTHS 04/23/2022 10/21/2021, 02/28/2021, 01/20/2021, Additional history exists GFR - Renal Function 09/17/2022 03/19/2022, 03/19/2022, 10/21/2021, Additional history exists DIABETES-EYE EXAM 10/18/2022 10/18/2021, , 06/30/2019 DIABETES-FOOT EXAM 10/21/2022 10/21/2021, 0 07/16/2020, 07/15/2019 Depression Screening, Annual for Pts 12 and Over 10/21/2022 10/21/2021 CKD HGB USE SMARTSET 63474 03/19/202303/19, 03/19/2022, 03/19/2022, Additional history exists CKD PHOS USE SMARTSET 67758 03/19/2023 03/19/2022, 0 10/21/2021 DXA Scan 03/11/2026 03/11/2019 DTaP,Tdap,and Td [...] as of this encounter Visit Diagnoses Diagnosis Yeast vaginitis- Primary Candidiasis of vulva and vagina documented in this encounter Advance Directives Latest Code Status on File Code Status Date Activated Date Inactivated Comments Full Code 03/19/2022 4:23 AM 03/20/2022 6:40 PM This order reflects the patients wishes and were consensually agreed upon. Question Answer Comments Discussion of Advance Directives occurred with: Patient Does the patient have a Living Will? No Does the patient have Health Care Power of Mica Sizer? No Code Status History Code Status Date Activated Date Inactivated Comments Full Code 02/28/2021 8:35 AM 03/01/2021 8:18 PM Thi s order reflects the patients wishes and were consensually agreed upon. Question Answer Comments Discussion of Advance Directives occurred with: Patient Full Code 10/06/2020 12:41 AM 10/06/2020 9:21 PM This order reflects the patients wishes and were consensually agreed upon. Question Answer Comments Discussion of Advance Directives occurred with: Patient Care Teams Research Development Manager Relationship Specialty Start Date End Date Elías Jade MD [address] [address] PCP - General Family Medicine 06/01/21 documented as of this encounter
--- OUTSIDE RECORDS SUMMARY | 2022-12-17 03:25 | External Medical Summary | Summary of Care ---
Author Name Unknown Organization [facility] Address [address] [place] [address] Phone [phone] Care Team Providers Care Solid Waste Engineer Name Role Phone Elías Gilbert MD Primary Care Provider [phone] Reason for Visit * Reason Comments eRx-Medication Refill Encounter Details Date Type Department Care Team Description 08/07/2022 Refill [facility] [address] [place] [address] Elías Gilbert MD [address] [place] [address] ADRIANA (generalized anxiety disorder) Allergies Active Allergy Reactions Severity Noted Date Comments Eggs Or Egg-Derived Products Diarrhea 021 documented as of this encounter (statuses as of 08/08/2022) Medications Medication Sig Dispensed Refills Start Date [...] A DAY 90 Tablet 3 09/18/2021 Active Furosemide 20 MG Oral Tablet (Lasix)Indicatio [...] 03/28/2022 Active Lisinopril 20 MG Oral Tablet (Prinivil)Indica tions:Stage 3a chronic kidney disease (HCC),HTN, goal below 140/90 TAKE 1 TABLET BEFORE BEDTIME 90 Tablet 2 06/13/2022 Active busPIRone HCl 10 MG Oral Tablet (Buspar)Indicati ons:ADRIANA (generalized anxiety disorder) TAKE 1 TABLET THREE TIMES DAILY NEEDED FOR ANXIETY 270 Tablet 3 08/08/2022 Active busPIRone HCl 10 MG Oral Tablet (Buspar)Indicati ons:ADRIANA (generalized anxiety disorder) TAKE ONE TABLET BY MOUTH THREE TIMES A DAY NEEDED FOR ANXIETY 270 Tablet 3 09/15/2021 3 Discontinued documented as of this encounter (statuses as of 08/08/2022) Active Problems Problem Noted Date Type 2 [...] as of this encounter (statuses as of 08/08/2022) Resolved Problems Problem Noted Date Resolved Date [...] as of this encounter (statuses as of 08/08/2022) Immunizations Name Administration Dates Next Due DTaP [...] Telephone Encounter - Elías Gilbert MD - 08/08/2022 10:25 AM EDTSigned Prescriptions: Disp Refills busPIRone HCl 10 MG Oral Tablet (Buspar) 270 Ta*3 Sig: TAKE 1 TABLET THREE TIMES DAILY NEEDED FOR ANXIETY Authorizing Provider: ELÍAS GILBERT * Telephone Encounter - Arnav Maravilla RP - 08/08/2022 8:43 AM EDTPending Prescriptions: Disp Refills busPIRone HCl 10 MG Oral Tablet [Pharmacy *270 Ta*3 Sig: TAKE 1 TABLET THREE TIMES DAILY NEEDED FOR ANXIETY * Telephone Encounter - Arnav Maravilla RP - 08/08/2022 8:42 AM EDT Pending Prescriptions: Disp Refills busPIRone HCl 10 MG Oral Tablet [Pharmacy *270 Ta*3 Sig: TAKE 1 TABLET THREE TIMES DAILY NEEDED FOR ANXIETY 03/24/2022 (in office), Visit date not found (telemedicine) Visit date not found If no future appointments scheduled, and last appointment is greater than a year ago, please schedule patient for a follow-up appointment Last date the medication was ordered: 09/15/21 Pharmacy: [facility] [address]- [place] Is this request for a controlled substance?No Urine Drug Screen:No results found for this or any previous visit. Patient Phone Numbers Labs: Lab Results Component Value Date/Time CREAT 1.4 (H) 03/19/2022 06:12 AM CREAT 1.2 (H) 10/31/2019 10:03 AM POTASSIUM 4.4 03/19/2022 06:12 AM POTASSIUM 4.6 10/31/2019 10:03 AM TSH 2.02 05/19/2019 10:59 PM LDLCALC 71 03/19/2022 06:12 AM LDLCALC 66 06/03/2019 07:54 AM LDLDIRECT NOT APPLICABLE 06/03/2019 07:54 AM ALT 11 03/19/2022 01:00 AM ALT 13 10/31/2019 10:03 AM HGBA1C 6.9 (H) 10/21/2021 09:57 AM HGBA1C 7.0 (H) 01/20/2021 09:57 AM HGBA1C 6.6 (H) 10/31/2019 10:03 AM documented in this encounter Plan of Treatment Health Maintenance Due Date Last Done Comments COVID-19 Vaccine (#1) 1945 Hepatitis C Screening 1962 Zoster Vaccines (1 of 2) 1994 Albumin/Creatinine Ratio 04/01/2022 021, 07/16/2020, 06/06/2019 HgA1C 04/23/2022 10/21/2021, 02/14, 01/20/2021, Additional history exists GFR - Renal Function 09/17/2022 03/19/2022, 03/19/2022, 10/21/2021, Additional history exists DIABETES-EYE EXAM 10/18/2022 10/18/2021, , 06/30/2019 DIABETES-FOOT EXAM 10/21/2022 10/21/2021, 0 07/16/2020, 07/15/2019 Depression Screening, Annual for Pts 12 and Over 10/21/2022 10/21/2021 Influenza Vaccine (FLU shot) (Season Ended) 2022 07/15/2019, 02/22/2016, 03/08/2015 CKD HGB USE SMARTSET 23061 03/19/202303/19, 03/19/2022, 03/19/2022, Additional history exists CKD PHOS USE SMARTSET 65737 03/19/2023 03/19/2022, 0 10/21/2021 DXA Scan 03/11/2026 [...] encounter Visit Diagnoses Diagnosis ADRIANA (generalized anxiety disorder) Generalized anxiety disorder documented in this encounter [...] the patient have Health Care Power of Bookkeeping Clerk? No Code Status History Code Status Date [...] Advance Directives occurred with: Patient Care Teams Solid Waste Engineer Relationship Specialty Start Date End Date Elías Gilbert MD [address] [place] [id number] PCP - General Family Medicine 06/01/21 documented as of this encounter
--- OUTSIDE RECORDS SUMMARY | 2022-12-17 03:25 | External Medical Summary | Summary of Care ---
Author Name Unknown Organization [facility] [place] [address] Care Team Providers Care Building Maintenance Supervisor Name Role Phone Elías Jade MD Primary Care Provider [phone] Reason for Visit * Reason Comments Hospital Follow-Up Encounter Details Date Type Department Care Team Description 03/[facility] [place] [address] Elías Jade MD [address] [facility] [place] [address] Encounter for examination following treatment at hospital*; Shortness of breath Allergies Active Allergy Reactions Severity Noted Date Comments Eggs Or Egg-Derived Products Diarrhea 021 documented as of this encounter (statuses as of 04/01/2022) Medications Medication Sig Dispensed Refills Start Date End Date Status aspirin enteric coated 81 MG TBEC Take 1 Tab by mouth daily. 0 Active omeprazole (PRILOSEC) 20 MG CPDR Take 1 Cap by mouth daily. 0 Active Escitalopram Oxalate 10 MG Oral Tablet (Lexapro)Indica tions:ADRIANA (generalized anxiety disorder) Take 1 Tablet by mouth daily. 90 Tablet 1 03/07/2021 Active metFORMIN HCl 1000 MG Oral Tablet (Glucophage)Ind ications:Type 2 diabetes mellitus with stage 3a chronic kidney disease, without long-term current use of insulin (HCC) Take by mouth 1 Tablet 2 times a day with morning and evening meals . 180 Tablet 2 09/16/2021 Active Metoprolol Tartrate 25 MG Oral Tablet (Lopressor) TAKE ONE-HALF TABLET BY MOUTH TWICE A DAY 90 Tablet 3 09/18/2021 Active busPIRone HCl 10 MG Oral Tablet (Buspar)Indicat ions:ADRIANA (generalized anxiety disorder) TAKE ONE TABLET BY MOUTH THREE TIMES A DAY NEEDED FOR ANXIETY 270 Tablet 3 09/15/2021 Active Furosemide 20 MG Oral Tablet (Lasix)Indicati ons:Left heart failure (HCC) Take by mouth 1 Tablet in the morning. 90 Tablet 3 10/21/2021 Active Meclizine HCl 25 MG Oral Tablet (Antivert)Indic ations:Dizzines s TAKE 1 TABLET NEEDED IN THE MORNING AND 1 TABLET NEEDED AT NOON AND 1 TABLET NEEDED IN THE EVENING FOR DIZZINESS 30 Tablet 1 10/31/2021 Active Benzonatate 100 MG Oral Capsule (Tessalon Perles)Indicati ons:Shortness of breath Take 1 Capsule by mouth 3 times a day as needed for Cough. Do not cut, crush, or chew. 50 Capsule 1 04/01/2022 Active ProAir HFA 108 (90 Base) MCG/ACT Inhalation Aerosol SolutionIndicat ions:Shortness of breath Inhale 2 Puffs by mouth every 4 hours as needed for Wheezing. 8 g 2 04/01/2022 Active Atorvastatin Calcium 80 MG Oral Tablet (Lipitor)Indica tions:Dyslipide kirk, goal LDL below 100 Take by mouth 1 Tablet before bedtime. 90 Tablet 1 09/16/2021 2 Discontinued Lisinopril 20 MG Oral Tablet (Prinivil)Indic ations:Stage 3a chronic kidney disease (HCC),HTN, goal below 140/90 Take by mouth 1 Tablet before bedtime. 90 Tablet 2 09/16/2021 2 Discontinued(Ref ill) Benzonatate 100 MG Oral Capsule (Tessalon Perles) Take by mouth 1 Capsule as needed in the morning AND 1 Capsule as needed at noon AND 1 Capsule as needed in the evening for Cough. Do not cut, crush, or chew.. 50 Capsule 1 01/11/2022 2 Discontinued(Ref ill) documented as of this encounter (statuses as of 04/01/2022) Active Problems Problem Noted Date Type 2 [...] as of this encounter (statuses as of 04/01/2022) Resolved Problems Problem Noted Date Resolved Date [...] as of this encounter (statuses as of 04/01/2022) Immunizations Name Administration Dates Next Due DTaP [...] Sign Reading Time Taken Comments Blood Pressure 156/64 03/24/2022 2:42 PM EST Pulse 79 03/24/2022 2:42 PM EST Temperature 36.2 C (97.1 F) 03/24/2022 2:42 PM ES T Respiratory Rate 18 03/24/2022 2:42 PM EST Oxygen Saturation 99% 03/24/2022 2:42 PM EST Inhaled Oxygen Concentration - - Weight 102.1 kg (225 lb) 03/24/2022 2:42 PM EST Height 162.6 cm (5' 4") 03/24/2022 2:42 PM EST Body Mass Index 38.62 03/24/2022 2:42 PM EST documented in this encounter Functional Status Functional [...] No 03/19/2022 documented as of this encounter Progress Notes * Elías Jade MD - 04/01/2022 4:35 PM EST Images from the original note were not included. History of Present Illness Sahra Rodríguez is a 76 year old female that presents for Hospital Follow-Up Recently admitted for chest pain rule out [facility] 03/19-03/20. Chest pain resolved. However, under a lot of stress. Stress is really bad, nerves are bad too, tearful talking about son making a mess in yard & 2 daughters not talking to her for 2 [employer] now, spoiled grandson Had similar pain 1 year ago Pain has resolved Stress management: plays with [employer] ([employer]), car ride. Painting Thinks her current dosage is working of buspar and lexapro; declines changes today. Physical Exam Vitals: 03/24/22 1442 Temp: 36.2 C (97.1 F) Pulse: 79 Resp: 18 SpO2: 99% BP: 156/64 BMI: 38.6 Physical Exam Vitals and nursing note reviewed. Constitutional: Appearance: Normal appearance. She is obese. She is not ill-appearing. HENT: Head: Normocephalic and atraumatic. Right Ear: External ear normal. Left Ear: External ear normal. Ears: Comments: Hearing aids in place No effusion or erythema Nose: No congestion or rhinorrhea. Comments: Wearing mask Mouth/Throat: Mouth: Mucous membranes are moist. Pharynx: No oropharyngeal exudate or posterior oropharyngeal erythema. Eyes: Extraocular Movements: Extraocular movements intact. Pupils: Pupils are equal, round, and reactive to light. Cardiovascular: Rate and Rhythm: Normal rate and regular rhythm. Heart sounds: Normal heart sounds. Pulmonary: Effort: Pulmonary effort is normal. No respiratory distress. Breath sounds: Normal breath sounds. No stridor. No wheezing, rhonchi or rales. Abdominal: General: There is no distension. Tenderness: There is no abdominal tenderness. Musculoskeletal: General: Normal range of motion. Cervical back: Normal range of motion. Right lower leg: No edema. Left lower leg: No edema. Comments: Ambulates independently No ttp chest wall Lymphadenopathy: Cervical: No cervical adenopathy. Skin: General: Skin is warm and dry. Findings: Lesion (multiple skin tags around neckline ) present. Neurological: General: No focal deficit present. Mental Status: She is alert and oriented to person, place, and time. Cranial Nerves: No cranial nerve deficit. Motor: No weakness (full stregth, equal bilaterally). Psychiatric: Mood and Affect: Mood normal. Behavior: Behavior normal. Thought Content: Thought content normal. I have reviewed the following results: stress test (nuc), cbc, bmp, gil Assessment and Plan Encounter for examination following treatment at hospital Meds reviewed. CP resolved, but stress increased. Situational, family stressors. No changes to medstoday at her request, advised to make me aware of anxiety worsens or if chest pain returns. Wrap-Up Follow Up: Return in about 3 months (around 06/22/2022) for Followup with Teresa Hough, kena 2-5 days prior. | For: Followup with kena Man 2-5 days prior Time: I spent a total of 30-39 minutes (exact time 32 mins) on the date of service in preparation, delivery, and documentation of the care provided to Sahra Rodríguez excluding any time spent in the performance of separately billed services. * GRACE Uriarte - 03/24/2022 2:39 PM EST Chief Complaint Patient presents with Hospital Follow-Up Pt here for hospital follow up today of chest pain. Pt was discharged on 03/20/22 and state she has not had any further chest pain and the stress in her life is getting better. Patient has been verbally educated on the need or importance of Immunizations: Shingrix and flu. documented in this encounter Plan of Treatment Upcoming Encounters Date Type Specialty Care Team Description 05/01/2022 Office Visit Family Medicine Yasmany, Elías Rhoades MD [address] [id number] 06/19/2022 Laboratory Laboratory Arias Kingston [address] [address] 06/22/2022 Office Visit Family Medicine Teresa Hough CRNP [address] [facility] [address] [place] [address] Health Maintenance Due Date Last Done Comments [...] Over 10/21/2022 10/21/2021 CKD HGB USE SMARTSET 23565 03/19/202303/19, 03/19/2022, 03/19/2022, Additional history exists CKD PHOS USE SMARTSET 82745 03/19/2023 03/19/2022, 0 10/21/2021 DXA Scan 03/11/2026 [...] for examination following treatment at hospital- Primary Shortness of breath documented in this encounter Advance Directives Latest Code Status on File Code Status Date Activated Date Inactivated Comments Full Code 03/19/2022 4:23 AM 03/20/2022 6:40 PM This order reflects the patients wishes and were consensually agreed upon. Question Answer Comments Discussion of Advance Directives occurred with: Patient Does the patient have a Living Will? No Does the patient have Health Care Power of Belt Back Operator? No Code Status History Code Status Date [...] Advance Directives occurred with: Patient Care Teams Building Maintenance Supervisor Relationship Specialty Start Date End Date Elías Jade MD [address] [address] PCP - General Family Medicine 06/01/21 documented as of this encounter
--- OUTSIDE RECORDS SUMMARY | 2022-12-17 03:25 | External Medical Summary | Summary of Care ---
Author Name Unknown Organization [facility] Address [address] [place] [address] Phone [phone] Care Team Providers Care 4Th Grade Teacher Name Role Phone Elías Jade MD Primary Care Provider [phone] Reason for Visit * Reason Onset Date Comments Med Request 08/28/2022 no answer 08/31 Encounter Details Date Type Department Care Team Description 08/28/2022 Telephone [facility] [address] [place] [address] Elías Jade MD [address] [place], [place] [id number] Med Request (no answer 08/31) Allergies Active Allergy Reactions Severity Noted Date Comments Eggs Or Egg-Derived Products Diarrhea 021 documented as of this encounter (statuses as of 09/01/2022) Medications Medication Sig Dispensed Refills Start Date [...] 09/18/2021 Active Furosemide 20 MG Oral Tablet (Lasix)Indications: Left heart failure (HCC) Take by mouth 1 Tablet in the morning. 90 Tablet 3 10/21/2021 Active Meclizine HCl 25 MG Oral Tablet (Antivert)Indicatio ns:Dizziness TAKE 1 TABLET NEEDED IN THE MORNING AND 1 TABLET NEEDED AT NOON AND 1 TABLET NEEDED IN THE EVENING FOR DIZZINESS 30 Tablet 1 10/31/2021 Active Benzonatate 100 MG Oral Capsule (Tessalon Perles)Indications: Shortness of breath Take 1 Capsule by mouth [...] 03/28/2022 Active Lisinopril 20 MG Oral Tablet (Prinivil)Indicatio ns:Stage 3a chronic kidney disease (HCC),HTN, goal below 140/90 TAKE 1 TABLET BEFORE BEDTIME 90 Tablet 2 06/13/2022 Active busPIRone HCl 10 MG Oral Tablet (Buspar)Indications :ADRIANA (generalized anxiety disorder) TAKE 1 TABLET THREE TIMES DAILY NEEDED FOR ANXIETY 270 Tablet 3 08/08/2022 Active documented as of this encounter (statuses as of 09/01/2022) Active Problems Problem Noted Date Type 2 [...] as of this encounter (statuses as of 09/01/2022) Resolved Problems Problem Noted Date Resolved Date [...] as of this encounter (statuses as of 09/01/2022) Immunizations Name Administration Dates Next Due DTaP [...] encounter Miscellaneous Notes * Telephone Encounter - Ella Shipley LPN - 09/01/2022 3:42 PM EDT Pt went to ER yesterday. * Telephone Encounter - Samia King MED ASSIST - 08/31/2022 10:09 AM EDT Called patient, no answer.Voicemail not set up. * Telephone Encounter - Elías Jade MD - 08/31/2022 9:57 AM EDT Please have her start with nasal saline rinse at least twice daily followed by flonase. Can also start an antihistamine like Claritin/zyrtec/lilo/xyzall which will help reduce allergic response cecy different way. Pollen extremely high. All available OTC Thanks! Elías Jade MD, PAULA Family Physician [facility] [place] * Telephone Encounter - MANDY Owens - 08/28/2022 5:22 PM EDT Patient asking for prescription sent to pharmacy for sinus congestion, post nasal drip and runny nose. Has had symptoms for 3 days documented in this encounter Plan of Treatment Upcoming Encounters Date Type Specialty Care Team Description 09/04/2022 Laboratory Laboratory Arias [facility] [address] [place] [address] 11/02/2022 Office Visit Family Medicine Mahogany Moncada CRNP [address] [place] [id number] Health Maintenance Due Date Last Done Comments [...] 07/15/2019, 02/22/2016, 03/08/2015 CKD HGB USE SMARTSET 52026 03/19/202303/19, 03/19/2022, 03/19/2022, Additional history exists CKD PHOS USE SMARTSET 79763 03/19/2023 03/19/2022, 0 10/21/2021 DXA Scan 03/11/2026 [...] the patient have Health Care Power of Visitor Services Technician? No Code Status History Code Status Date [...] Advance Directives occurred with: Patient Care Teams 4Th Grade Teacher Relationship Specialty Start Date End Date Elías Jade MD [address] [place] [address] PCP - General Family Medicine 06/01/21 documented as of this encounter
--- OUTSIDE RECORDS SUMMARY | 2022-12-17 03:25 | External Medical Summary | Summary of Care ---
Author Name Unknown Organization [facility] Address [address] [place] [address] Phone [phone] Care Team Providers Care Prison Guard Supervisor Name Role Phone Elías Jade MD Primary Care Provider [phone] Reason for Visit * Reason Comments Outpatient Testing Encounter Details Date Type Department Care Team Description 07/14/2022 Laboratory Laboratory, [address] [address] [facility] [address] [place] [address] Arrived Allergies Active Allergy Reactions Severity Noted Date Comments Eggs Or Egg-Derived Products Diarrhea 021 documented as of this encounter (statuses as of 07/14/2022) Medications Medication Sig Dispensed Refills Start Date [...] Tablet (Buspar)Indications :ADRIANA (generalized anxiety disorder) TAKE ONE TABLET BY MOUTH THREE TIMES A DAY NEEDED FOR ANXIETY 270 Tablet 3 09/15/2021 Active Furosemide 20 MG Oral Tablet (Lasix)Indications: [...] BEFORE BEDTIME 90 Tablet 2 06/13/2022 Active documented as of this encounter (statuses as of 07/14/2022) Active Problems Problem Noted Date Type 2 [...] as of this encounter (statuses as of 07/14/2022) Resolved Problems Problem Noted Date Resolved Date [...] as of this encounter (statuses as of 07/14/2022) Immunizations Name Administration Dates Next Due DTaP [...] No 03/19/2022 documented as of this encounter Plan of Treatment Upcoming Encounters Date Type Specialty Care Team Description 08/05/2022 Office Visit [facility] [place] [address] Health Maintenance Due Date Last Done Comments COVID-19 Vaccine (#1) 1945 Hepatitis C Screening 1963 Zoster Vaccines (1 of 2) 1994 Influenza Vaccine (FLU shot) (#1) 2021 07/15/2019, 02/22/2016, 03/08/2015 Albumin/Creatinine Ratio 04/01/2022 021, 07/16/2020, 06/06/2019 HgA1C 04/23/2022 10/21/2021, 02/14, 01/20/2021, Additional history exists GFR - Renal Function 09/17/2022 03/19/2022, 03/19/2022, 10/21/2021, Additional history exists DIABETES-EYE EXAM 10/18/2022 10/18/2021, , 06/30/2019 DIABETES-FOOT EXAM 10/21/2022 10/21/2021, 0 07/16/2020, 07/15/2019 Depression Screening, Annual for Pts 12 and Over 10/21/2022 10/21/2021 CKD HGB USE SMARTSET 30768 03/19/202303/19, 03/19/2022, 03/19/2022, Additional history exists CKD PHOS USE SMARTSET 46987 03/19/2023 03/19/2022, 0 10/21/2021 DXA Scan 03/11/2026 [...] the patient have Health Care Power of Ldr Nurse? No Code Status History Code Status Date [...] Advance Directives occurred with: Patient Care Teams Prison Guard Supervisor Relationship Specialty Start Date End Date Elías Jade MD [place] [address] PCP - General Family Medicine 06/01/21 documented as of this encounter
--- OUTSIDE RECORDS SUMMARY | 2022-12-17 03:25 | External Medical Summary | Summary of Care ---
Author Name Unknown Organization [facility] Address [address] [place] [address] Phone [phone] Care Team Providers Care Vp Public Relations Name Role Phone Elías Jade MD Primary Care Provider [phone] Reason for Visit * Reason Onset Date Comments Med Request 08/28/2022 no answer 08/31 Encounter Details Date Type Department Care Team Description 08/28/[address] [facility] [address] [place] [address] Elías Jade MD [address] [place], [place] [phone] Med Request (no answer 08/31) Allergies Active Allergy Reactions Severity Noted Date Comments Eggs Or Egg-Derived Products Diarrhea 021 documented as of this encounter (statuses as of 08/31/2022) Medications Medication Sig Dispensed Refills Start Date [...] as of this encounter (statuses as of 08/31/2022) Active Problems Problem Noted Date Type 2 [...] as of this encounter (statuses as of 08/31/2022) Resolved Problems Problem Noted Date Resolved Date [...] as of this encounter (statuses as of 08/31/2022) Immunizations Name Administration Dates Next Due DTaP [...] [facility] [place] * Telephone Encounter - MANDY Owens - 08/28/2022 5:22 PM EDT Patient asking for prescription sent to pharmacy for sinus congestion, post nasal drip and runny nose. Has had symptoms for 3 days documented in this encounter Plan of Treatment Upcoming Encounters Date Type Specialty Care Team Description 09/04/2022 Laboratory Laboratory [facility] [address] [place] [id number] 11/02/2022 Office Visit Family Medicine Mahogany Moncada CRNP [address] [facility] [place] [id number] Health Maintenance Due Date Last Done Comments [...] 07/15/2019, 02/22/2016, 03/08/2015 CKD HGB USE SMARTSET 14394 03/19/202303/19, 03/19/2022, 03/19/2022, Additional history exists CKD PHOS USE SMARTSET 94048 03/19/2023 03/19/2022, 0 10/21/2021 DXA Scan 03/11/2026 [...] the patient have Health Care Power of Graphic Art Sales Representative? No Code Status History Code Status Date [...] Advance Directives occurred with: Patient Care Teams Vp Public Relations Relationship Specialty Start Date End Date Elías Jade MD [place] [address] PCP - General Family Medicine 06/01/21 documented as of this encounter
--- OUTSIDE RECORDS SUMMARY | 2022-12-17 03:25 | External Medical Summary | Summary of Care ---
Author Name Unknown Organization [facility] Address [address] [place] [address] Phone [phone] Care Team Providers Care Alligator Hunter Name Role Phone Elías Jade MD Primary Care Provider [phone] Reason for Visit * Reason Onset Date Comments Med Request 08/28/2022 no answer 08/31 Encounter Details Date Type Department Care Team Description 08/28/2022 Telephone [facility] [address] [place] [address] Elías Jade MD [address] [place] [id number] Med Request (no answer 08/31) Allergies Active [...] Psc [address] [place] [id number] 11/02/2022 Office Visit Family Medicine Mahogany Moncada CRNP [address] [facility] [place] [id number] Health Maintenance Due Date Last Done Comments [...] 07/15/2019, 02/22/2016, 03/08/2015 CKD HGB USE SMARTSET 84224 03/19/202303/19, 03/19/2022, 03/19/2022, Additional history exists CKD PHOS USE SMARTSET 19685 03/19/2023 03/19/2022, 0 10/21/2021 DXA Scan 03/11/2026 [...] the patient have Health Care Power of Legal Researcher? No Code Status History Code Status Date [...] Advance Directives occurred with: Patient Care Teams Alligator Hunter Relationship Specialty Start Date End Date Elías Jade MD [place] [address] PCP - General Family Medicine 06/01/21 documented as of this encounter
--- OUTSIDE RECORDS SUMMARY | 2022-12-17 03:25 | External Medical Summary | Summary of Care ---
Author [place] [address] Care Team Providers Care Paster Operator Name Role Phone Elías Jade MD Primary Care Provider [phone] Reason for Visit * Reason Onset Date Comments Health Maintenance 05/12/2022 Encounter Details Date Type Department Care Team Description 05/12/[address] [facility] [address] [facility] [place] [address] Elías Jade MD [address] [place] [address] Health Maintenance Allergies Active Allergy Reactions Severity Noted Date Comments Eggs Or Egg-Derived Products Diarrhea 021 documented as of this encounter (statuses as of 05/12/2022) Medications Medication Sig Dispensed Refills Start Date [...] at bedtime. 7 Tablet 0 03/31/2022 Active documented as of this encounter (statuses as of 05/12/2022) Active Problems Problem Noted Date Type 2 [...] as of this encounter (statuses as of 05/12/2022) Resolved Problems Problem Noted Date Resolved Date [...] as of this encounter (statuses as of 05/12/2022) Immunizations Name Administration Dates Next Due DTaP [...] encounter Miscellaneous Notes * Telephone Encounter - Tayla Dunham LPN - 05/12/2022 2:44 PM EST Care Gaps Comprehensive Care Outreach Last Office/Telemedicine Visit: 03/24/2022 (in office), Visit date not found (telemedicine) Next Office Visit: 06/22/2022 Hemoglobin AIC Results: Lab Results Component Value Date/Time HEMOGLOBIN A1C - [facility] 6.9 (H) 10/21/2021 09:57 AM HEMOGLOBIN A1C - [facility] 7.4 (H) 02/28/2021 05:03 AM HEMOGLOBIN A1C - [facility] 7.6 (H) 10/06/2020 02:05 AM HEMOGLOBIN A1C - [facility] 6.6 (H) 10/31/2019 10:03 AM HEMOGLOBIN A1C - [facility] 7.4 (H) 06/03/2019 07:54 AM HEMOGLOBIN A1C POCT - [facility] 7.0 (H) 01/20/2021 09:57 AM HEMOGLOBIN A1C POCT - [facility] 6.7 (H) 07/16/2020 08:27 AM Reviewed Health Maintenance below: Health Maintenance Topic Date Due COVID-19 Vaccine (1) Never done Hepatitis C Screening Never done Zoster Vaccines (1 of 2) Never done Influenza Vaccine (FLU shot) (1) 12/15/2021 Alb / Creat Ratio 04/01/2022 HgA1C 04/23/2022 GFR - Renal Function 09/17/2022 DIABETES-EYE EXAM 10/18/2022 DIABETES-FOOT EXAM 10/21/2022 Depression Screening, Annual for Pts 12 and Over 10/21/2022 CKD HGB USE SMARTSET 25801 03/19/2023 CKD PHOS USE SMARTSET 50764 03/19/2023 Care Gap Outreach Action Taken: Left message documented in this encounter Plan of Treatment Upcoming Encounters Date Type Specialty Care Team Description 06/19/2022 Laboratory Laboratory [facility] [place] [address] [place] [address] 06/22/2022 Office Visit Family Medicine Teresa Hough CRNP [address] [place] [address] Health Maintenance Due Date Last Done Comments COVID-19 Vaccine (#1) 1945 Hepatitis C Screening 1962 Zoster Vaccines (1 of 2) 1994 Influenza Vaccine (FLU shot) (#1) 2021 07/15/2019, 02/22/2016, 03/08/2015 Alb / Creat Ratio 04/01/2022 04/01/2021, , 06/06/2019 HgA1C 04/23/2022 10/21/2021, 02/14, 01/20/2021, Additional history exists GFR - Renal Function 09/17/2022 03/19/2022, 03/19/2022, 10/21/2021, Additional history exists DIABETES-EYE EXAM 10/18/2022 10/18/2021, , 06/30/2019 DIABETES-FOOT EXAM 10/21/2022 10/21/2021, 0 07/16/2020, 07/15/2019 Depression Screening, Annual for Pts 12 and Over 10/21/2022 10/21/2021 CKD HGB USE SMARTSET 10340 03/19/202303/19, 03/19/2022, 03/19/2022, Additional history exists CKD PHOS USE SMARTSET 74956 03/19/2023 03/19/2022, 0 10/21/2021 DXA Scan 03/11/2026 [...] the patient have Health Care Power of Well Driller? No Code Status History Code Status Date [...] Advance Directives occurred with: Patient Care Teams Paster Operator Relationship Specialty Start Date End Date Elías Jade MD [place] [address] PCP - General Family Medicine 06/01/21 documented as of this encounter
--- OUTSIDE RECORDS SUMMARY | 2022-12-17 03:25 | External Medical Summary | Summary of Care ---
Author Name Unknown Organization [facility] Address [address] [place] [address] Phone [phone] Care Team Providers Care Soil Biology Teacher Name Role Phone Elías Jade MD Primary Care Provider [phone] Reason for Visit * Reason Onset Date Comments Order Request 07/14/2022 Encounter Details Date Type Department Care Team Description 07/14/2022 Telephone [facility] 21 [facility] [place] [address] Elías Jade MD [address] [place] [address] Order Request Allergies Active Allergy Reactions [...] encounter Miscellaneous Notes * Telephone Encounter - GRACE Uriarte ASSIST - 07/14/2022 11:50 AM EDT Patient aware and verbalized understanding * Telephone Encounter - Elías Jade MD - 07/14/2022 11:38 AM EDT A1c, bmp and miroalbumin ordered. Elías Jade MD, PAULA Family Physician [facility] [place] * Telephone Encounter - GRACE Uriarte ASSIST - 07/14/2022 10:48 AM EDT 03/24/22 office note states to have labs 2-5 days prior. I do not see orders. Please advise. * Telephone Encounter - MANDY Santa - 07/14/2022 10:24 AM EDT An order was requested for this patient. Name of Requesting Provider: Elías Jade Order Requested: lab work Diagnosis/Reason for Request: pt has upcoming appt in July she thought she needed to have labs completed for but when she went to lab appt there were no orders in system If order request is for Mammogram, is the patient having any breast symptoms? Y/N: N Does the order need to be faxed somewhere? If so, where?: No Fax Number, if applicable: João Call Back Number: [phone] If the caller is not a current patient, please advise the patient to call their current PCP to havethe order's prior to being seen in our office. The patient was informed that our providers would not order anything (medication, labs, etc.) prior to being seen. documented in this encounter Plan of Treatment Upcoming Encounters Date Type Specialty Care Team Description 08/05/2022 Office Visit Family Medicine Elías Jade MD [address] [place] [address] Scheduled Orders Name Type Priority Associated Diagnoses Orde r Schedule HEMOGLOBIN A1C Lab Routine Type 2 diabetes mellitus with stage 3b chronic kidney disease, with long-term current use of insulin (HCC) Expected: 07/14/2022 (Approximate), Expires: 07/15/2023 ALBUMIN / CREATININE RATIO, URINE Lab Routine Type 2 diabetes mellitus with stage 3b chronic kidney disease, with long-term current use of insulin (HCC) Expected: 07/14/2022 (Approximate), Expires: 07/15/2023 BASIC METABOLIC PANEL Lab Routine Type 2 diabetes mellitus with stage 3b chronic kidney disease, with long-term current use of insulin (HCC) Expected: 07/14/2022 (Approximate), Expires: 07/14/2023 Health Maintenance Due Date Last Done Comments COVID-19 Vaccine (#1) 1945 Hepatitis C Screening 1962 Zoster Vaccines (1 of 2) 1994 Influenza Vaccine (FLU shot) (#1) 2021 07/15/2019, 02/22/2016, 03/08/2015 Albumin/Creatinine Ratio 04/01/202204/01/2 021, 07/16/2020, 06/06/2019 HgA1C 04/23/2022 10/21/2021, 02/14, 01/20/2021, Additional history exists GFR - Renal Function 09/17/2022 03/19/2022, 03/19/2022, 10/21/2021, Additional history exists DIABETES-EYE EXAM 10/18/2022 10/18/2021, , 06/30/2019 DIABETES-FOOT EXAM 10/21/2022 10/21/2021, 0 07/16/2020, 07/15/2019 Depression Screening, Annual for Pts 12 and Over 10/21/2022 10/21/2021 CKD HGB USE SMARTSET 81648 03/19/202303/19, 03/19/2022, 03/19/2022, Additional history exists CKD PHOS USE SMARTSET 19433 03/19/2023 03/19/2022, 0 10/21/2021 DXA Scan 03/11/2026 [...] Diagnosis Type 2 diabetes mellitus with stage 3b chronic kidney disease, with long-term current use of insulin (HCC)- Primary documented in this encounter Advance Directives Latest Code Status on File Code Status Date Activated Date Inactivated Comments Full Code 03/19/2022 4:23 AM 03/20/2022 6:40 PM This order reflects the patients wishes and were consensually agreed upon. Question Answer Comments Discussion of Advance Directives occurred with: Patient Does the patient have a Living Will? No Does the patient have Health Care Power of Crew Chief? No Code Status History Code Status Date [...] Advance Directives occurred with: Patient Care Teams Soil Biology Teacher Relationship Specialty Start Date End Date Elías Jade MD 21 [facility] [place] [address] PCP - General Family Medicine 06/01/21 documented as of this encounter
--- OUTSIDE RECORDS SUMMARY | 2022-12-17 03:25 | External Medical Summary | Summary of Care ---
Author [place] [address] Care Team Providers Care Is Analyst Name Role Phone Elías Jade MD Primary Care Provider [phone] Reason for Visit * Reason Onset Date Comments Med Request 04/14/2022 Encounter Details Date Type Department Care Team Description 04/14/2022 [facility]phone [facility] [address] [place] [address] Elías Jade MD [address] [place] [address] Med Request Allergies Active Allergy [...] encounter Miscellaneous Notes * Telephone Encounter - KAHLIL Valera - 04/18/2022 4:29 PM EST Patient has been informed of below message and verbalized understanding. * Telephone Encounter - Elías Jade MD [...] and itching. * Telephone Encounter - YUAN Liu Tech - 04/14/2022 8:54 AM EST Pt calling with complaints of yeast infection and is requesting a medication be prescribed. Pt did not want to schedule an appointment at this time. Call details was completed, please refer to this for further information. Thanks, Sheryl Clark [place] Machine Operator Pharmacy Refill Call [facility] 04/14/2022,8:56 AM documented in this encounter Plan of Treatment Upcoming Encounters Date Type Specialty Care Team Description 05/01/2022 Office Visit Family Medicine Elías Jade MD [address] [place] [id number] 06/19/2022 Laboratory Laboratory [facility] [place] [address] [place] [address] 06/22/2022 Office Visit Family Medicine Teresa Hough CRNP [address] [place] [address] Health Maintenance [...] Over 10/21/2022 10/21/2021 CKD HGB USE SMARTSET 59617 03/19/202303/19, 03/19/2022, 03/19/2022, Additional history exists CKD PHOS USE SMARTSET 40781 03/19/2023 03/19/2022, 0 10/21/2021 DXA Scan 03/11/2026 [...] the patient have Health Care Power of Ip Counsel? No Code Status History Code Status Date [...] Advance Directives occurred with: Patient Care Teams Is Analyst Relationship Specialty Start Date End Date Elías Jade MD [place] [address] PCP - General Family Medicine 06/01/21 documented as of this encounter
--- OUTSIDE RECORDS SUMMARY | 2022-12-17 03:25 | External Medical Summary | Summary of Care ---
Author Name Unknown Organization [facility] Address [address] [place] [address] Phone [phone] Care Team Providers Care Wood Preserving Plant Laborer Name Role Phone Elías Jade MD Primary Care Provider [phone] Reason for Visit * Reason Comments Sinus Problem * Auth/Cert Specialty Diagnoses / Procedures Referred By Olivia t Referred To Contact Referral ID Status Reason Start Date Expiration Date Visits Re quested Visits Authorized [id number] Encounter Details Date Type Department Care Team Description 08/29/2022 Emergency [facility] Emergency Department ([facility]) [address], [place] [id number] Deena Blanca MD [address] [place], [place] [id number] Viral URI (Primary Dx); Viral laryngitis Allergies Active Allergy Reactions Severity Noted Date Comments Eggs Or Egg-Derived Products Diarrhea 021 documented as of this encounter (statuses as of 08/29/2022) Medications Medication Sig Dispensed Refills Start Date End Date Status aspirin enteric coated 81 MG TBEC Take 1 Tab by mouth daily. 0 Active omeprazole (PRILOSEC) 20 MG CPDR Take 1 Cap by mouth daily. 0 Active Escitalopram Oxalate 10 MG Oral Tablet (Lexapro)Indication s:ADRINAA (generalized anxiety disorder) Take 1 Tablet by [...] as of this encounter (statuses as of 08/29/2022) Active Problems Problem Noted Date Type 2 [...] as of this encounter (statuses as of 08/29/2022) Resolved Problems Problem Noted Date Resolved Date [...] as of this encounter (statuses as of 08/29/2022) Immunizations Name Administration Dates Next Due DTaP [...] Sign Reading Time Taken Comments Blood Pressure 154/75 08/29/2022 7:11 AM EDT Pulse 94 08/29/2022 7:11 AM EDT Temperature 36.7 C (98.1 F) 08/29/2022 7:11 AM ED T Respiratory Rate 20 08/29/2022 7:11 AM EDT Oxygen Saturation 97% 08/29/2022 7:11 AM EDT Inhaled Oxygen Concentration - - Weight 102.1 kg (225 lb) 08/29/2022 7:11 AM EDT Height - - Body Mass Index 38.62 03/24/2022 2:42 PM [...] No 03/19/2022 documented as of this encounter Discharge Instructions * Discharge Instructions* Sharon Lott PA-C - 08/29/2022 7:48 AM EDT Rest and remain well hydrated. Elevate the head of your bed and run a cool mist humidifier to ease congestion. Please use BP safe over the counter cough and cold medications to ease symptoms. Review your discharge instructions. See your PCP this week. Return to the Emergency Deparment if symptoms return, persist, or worsen. documented in this encounter ED Notes * Sharon Lott PA-C - 08/29/2022 7:31 AM EDT Images from the original note were not included. HISTORY OF PRESENT ILLNESS Sahra Rodríguez is a 77 year old female who presents to the ED for evaluation of Sinus Problem. The patient was seen at 08/29/22 0730. Sahra is a 77 year old female with PMH significant for anxiety, DM, HTN, dyslipidemia c/o cough, congestion x 3 days Context: Denies exposure to ill contacts Associated symptoms: cough, congestion, hoarseness, post nasal drip Denies: Fever, chills, N/V/D, neck pain, rash Alleviating factors: none Aggravating factors: none Timing: constant Treatment rendered prior to arrival in ER: none Review of Systems Constitutional: Negative for chills, diaphoresis, fatigue and fever. HENT: Positive for congestion, postnasal drip, rhinorrhea and voice change (hoarseness). Negative for sinus pressure, sinus pain and sore throat. Respiratory: Positive for cough. Negative for shortness of breath. Cardiovascular: Negative for chest pain and palpitations. Gastrointestinal: Negative for abdominal pain, diarrhea, nausea and vomiting. Musculoskeletal: Negative for neck pain and neck stiffness. Skin: Negative for rash. Neurological: Negative for dizziness, light-headedness and headaches. All other systems reviewed and are negative. The patient's allergies, past history, and medications were reviewed. PHYSICAL EXAM Initial Vitals (see all): BP 154/75 | Pulse 94 | Resp 20 | Temp 98.1 | O2 97 %Weight 102.06 kg | Height 162.6 cm | BMI 38.62 kg/m2 Initial Pain Assessment (see all): 0 (no pain)/10 ([facility] Adult Scale 0-10) Physical Exam Vitals and nursing note reviewed. Constitutional: General: She is awake. She is not in acute distress. Appearance: Normal appearance. She is well-developed. She is not ill-appearing, toxic-appearing or diaphoretic. Comments: Speech and respirations unlabored. Hoarse voice noted. HENT: Head: Normocephalic and atraumatic. Jaw: There is normal jaw occlusion. Right Ear: Tympanic membrane and ear canal normal. Left Ear: Tympanic membrane and ear canal normal. Nose: Congestion and rhinorrhea present. Right Sinus: No maxillary sinus tenderness or frontal sinus tenderness. Left Sinus: No maxillary sinus tenderness or frontal sinus tenderness. Mouth/Throat: Lips: [place]. Mouth: Mucous membranes are moist. Pharynx: Posterior oropharyngeal erythema present. No pharyngeal swelling, oropharyngeal exudate oruvula swelling. Tonsils: No tonsillar exudate or tonsillar abscesses. Neck: Trachea: Trachea and phonation normal. Cardiovascular: Rate and Rhythm: Normal rate and regular rhythm. Heart sounds: Normal heart sounds. Pulmonary: Effort: Pulmonary effort is normal. Breath sounds: Normal breath sounds and air entry. Abdominal: General: Bowel sounds are normal. Palpations: Abdomen is soft. Tenderness: There is no abdominal tenderness. Musculoskeletal: Cervical back: Full passive range of motion without pain, normal range of motion and neck supple. Lymphadenopathy: Head: Right side of head: No submental, submandibular or tonsillar adenopathy. Left side of head: No submental, submandibular or tonsillar adenopathy. Cervical: No cervical adenopathy. Upper Body: Right upper body: No supraclavicular adenopathy. Left upper body: No supraclavicular adenopathy. Skin: General: Skin is warm and dry. Capillary Refill: Capillary refill takes less than 2 seconds. Neurological: Mental Status: She is alert and oriented to person, place, and time. Psychiatric: Behavior: Behavior is cooperative. PROCEDURES AND TREATMENTS ED Orders | ED Results MEDICAL DECISION MAKING Nursing notes and vital signs were reviewed. ED Course as of 08/29/22 0748 SunAugust 29, 2022 0739 Recommendations reviewed with patient: RVP - patient refused. Educated on expected course of viral illness and supportive care. BP safe OTC cough and cold medications. Follow up with PCP this week. Educated on strict return to ED instructions. Understanding verbalized by patient. [JT] ED Course User Index [JT] Sharon Lott PA-C Differential Diagnoses Based on my history, physical exam, and evaluation, the differential includes, but is not limited, to the following diagnoses: viral URI, COVID 19, acute sinusitis, acute bronchitis, pneumonia (less likelY). Imaging results reviewed, reports are as follows: I have reviewed the clinical lab, radiology, and other medical tests that were ordered during this encounter (see all). Lab results reviewed: I have reviewed the clinical lab, radiology, and other medical tests that were ordered during this encounter (see all). ED COURSE: History and physical were obtained. Prior records, EMS notes, triage/nursing notes reviewed as available. Patient was evaluated as per above. REASSESSMENT: Blood pressure 154/75, pulse 94, temperature 36.7 C (98.1 F), temperature source Temporal Artery, resp. rate 20, weight 102.1 kg (225 lb), SpO2 97 %, not currently . The patient is clinically improved and stable for consideration of discharge. I have reviewed the differential diagnosis along with disposition and treatment options at great length with the patient/family. They are in full agreement with the plan to discharge and understand the need to return if symptoms get any worse or fails to improve as discussed. Rationale I discussed the differential diagnosis with the patient an/or family along with options for further testing and/or treatment. They agree with the planned workup and the plan MEDICAL DECISION MAKING: History and physical were obtained. Based on the patients age, coexisting illnesses, labs, imaging,and exam findings the decision to treat as an outpatient was made. I discussed my findings with thepatient, spouse and they understand and agree with the treatment plan. All questions answered. Patient / Patient's family was counseled regarding concerning signs and symptoms that should prompt reevaluation in the ED, and they expressed understanding. All patient / family questions were answered to their satisfaction. See discharge instructions for further information. DIAGNOSIS: Viral URI Viral laryngitis The following medications were prescribed at this ED visit: BP safe OTC cough and cold medications. DISPOSITION: Discharged. The patient was advised to make a follow up appointment to Primary care. See patient discharge instructions for additional information. Return to the Emergency Deparment if symptoms return, persist, or worsen. Patient seen and examined in conjunction with supervising (cosigning) physician who also interviewed/examined the patient and agrees: MD Sharon Damon PA-C * Andria Looney RN - 08/29/2022 7:13 AM EDT Pt c/o sinus problem, has hoarse voice from coughing, denies fever or pain documented in this encounter Miscellaneous Notes * ED Client Liaison Note - Letty Loredo RN - 08/29/2022 7:53 AM EDT Discharge instructions provided using teach-back method. Pt verbalized understanding. * Pt Handout (on AVS) - Sharon Lott PA-C - 08/29/2022 7:46 AM EDT [id number] Viral Upper Respiratory Illness (Adult) You have a viral upper respiratory illness (URI), which is another term for the common cold. This viral illness is contagious during the first few days. It's spread through the air by coughing and sneezing. It may also be spread by direct contact (touching the sick person and then touching your owneyes, nose, or mouth). Frequent handwashing will lower risk of spread. Most viral illnesses go awaywithin 7 to 10 days with rest and simple home remedies. Sometimes the illness may last for several weeks. Antibiotics will not kill a virus, and they are generally not prescribed for this condition. Home care If symptoms are severe, rest at home for the first 2 to 3 days or as advised. When you resume activity, don't let yourself get too tired. Don't smoke. If you need help stopping, talk with your healthcare provider. Stay away from cigarette smoke (yours or others?). You may use acetaminophen or ibuprofen to control pain and fever, unless another medicine was prescribed. Talk with your provider before taking these medicines if you have chronic liver or kidney disease. Also talk with your provider if you've had a stomach ulcer or digestive bleeding, or you take blood- thinning medicines. Never give aspirin to anyone under 18 years of age who is ill with a viral infection or fever. It may cause severe liver or brain damage, or even . Your appetite may be poor, so a light diet is OK. Stay well hydrated by drinking 6 to 8 glassesof fluids per day (water, soft drinks, juices, tea, or soup). Extra fluids will help loosen secretions in the nose and lungs. Zevv-bbu-hhbnzup cold medicines will not shorten the length of time you?re sick. But they may behelpful for cough, sore throat, and nasal and sinus congestion. If you take prescription medicines,ask your healthcare provider or pharmacist which masx-edi-gnfcgpl medicines are safe to use. Don't use decongestants, if you have high blood pressure, without first talking with your healthcare provider. If you are taking other prescribed medicine, contact your healthcare provider before taking any gmuo-zwj-tpcazfe medicines. Follow-up care Follow up with your healthcare provider, or as advised. When to seek medical advice Call your healthcare provider right away if any of these occur: Cough with lots of colored sputum (mucus) Severe headache; face, neck, or ear pain Difficulty swallowing due to throat pain Fever of 100.4F (38C) or higher , or as directed by your healthcare provider Call 911 Call 911 if any of these occur: Chest pain, shortness of breath, wheezing, or difficulty breathing Coughing up blood Very severe pain with swallowing, especially if it goes along with a muffled voice Feeling of doom Feeling dizzy, faint, or confused Lips or skin is blue, purple or martinez in color Last Reviewed Date: 04/16/202119996706-5390 [employer] All rights reserved. This information is not intended as a substitute for professional medical care. Always follow your healthcare professional's instructions. * Pt Handout (on AVS) - Sharon Lott PA-C - 08/29/2022 7:46 AM EDT Images from the original note were not included. [id number] Laryngitis Laryngitis is an inflammation of the voice box (larynx). Symptoms include a hoarse (scratchy) voiceor your voice may be gone for a few days or longer. This may be caused by a viral illness, such as a head or chest cold. It may also be due to overuse and strain of your voice. Smoking, drinking alcohol, acid reflux, allergies, or inhaling harsh chemicals may also lead to symptoms. This condition will usually go away in 1 to 2 weeks. Home care Rest your voice until it recovers. Talk as little as possible. If your symptoms are severe, restat home for a day or so. Moist air may help your symptoms. Try breathing cool steam from a humidifier or vaporizer or breathe air from a steamy shower. Drink plenty of fluids to stay well hydrated. Don't smoke. Ask your healthcare provider for resources to help you quit. Follow-up care Follow up with your healthcare provider or this facility if you are not better after 1 week. If your hoarse voice lasts more than 2 weeks, you may need to see an metal tile lather. This is a healthcare provider specialist who treats diseases and disorders of the ear, nose, and throat (ENT). Seeing this provider is especially important if you have a history of alcohol or tobacco use. When to get medical advice Contact your healthcare provider right away if you have any of the following: Symptoms that get worse Severe pain with swallowing Trouble opening your mouth Neck swelling, neck pain, or trouble moving your neck Fever of 100.4F (38.C) or higher, or as directed by your healthcare provider Symptoms that do not go away in 2 weeks Call 911 Call 911 if you have any of the following: Noisy breathing or trouble breathing Drooling or not able to swallow Not able to talk Feeling dizzy or lightheaded Last Reviewed Date: 03/16/202219994246-8511 [employer]. All rights reserved. This information is not intended as a substitute for professional medical care. Always follow your healthcare professional's instructions. documented in this encounter Plan of Treatment Upcoming Encounters Date Type Specialty Care Team Description 09/04/2022 Laboratory Laboratory [facility] [address] [place] [address] [place] [address] 11/02/2022 Office Visit Family Medicine [facility] [address] [facility] [id number] Health Maintenance Due Date Last Done Comments [...] 07/15/2019, 02/22/2016, 03/08/2015 CKD HGB USE SMARTSET 32569 03/19/202303/19, 03/19/2022, 03/19/2022, Additional history exists CKD PHOS USE SMARTSET 40285 03/19/2023 03/19/2022, 0 10/21/2021 DXA Scan 03/11/2026 [...] as of this encounter Visit Diagnoses Diagnosis Viral URI- Primary Acute upper respiratory infections of unspecified site Viral laryngitis Acute laryngitis, without mention of obstruction documented in this encounter Advance Directives Latest Code Status on File Code Status Date Activated Date Inactivated Comments Full Code 03/19/2022 4:23 AM 03/20/2022 6:40 PM This order reflects the patients wishes and were consensually agreed upon. Question Answer Comments Discussion of Advance Directives occurred with: Patient Does the patient have a Living Will? No Does the patient have Health Care Power of Pipe Caulker? No Code Status History Code Status Date [...] Advance Directives occurred with: Patient Care Teams Wood Preserving Plant Laborer Relationship Specialty Start Date End Date Elías Jade MD [place] [id number] PCP - General Family Medicine 06/01/21 documented as of this encounter"
--- OUTSIDE RECORDS SUMMARY | 2022-12-17 03:25 | External Medical Summary | Summary of Care ---
Author Name Unknown Organization [facility] Address [address] [place] [address] Phone [phone] Care Team Providers Care Steeping Press Tender Name Role Phone Elías Gilbert MD Primary Care Provider [phone] Reason for Visit * Reason Comments eRx-Medication Refill Encounter Details Date Type Department Care Team Description 09/04/2022 Refill [facility] [address] [place] [address] Elías Gilbert MD [address] [place] [address] Allergies Active Allergy Reactions Severity Noted Date Comments Eggs Or Egg-Derived Products Diarrhea 021 documented as of this encounter (statuses as of 09/05/2022) Medications Medication Sig Dispensed Refills Start Date [...] meals . 180 Tablet 2 09/16/2021 Active Furosemide 20 MG Oral Tablet (Lasix)Indicatio [...] 10/31/2021 Active Benzonatate 100 MG Oral Capsule (Tessalkatharine Tarah)Indicatio ns:Shortness of breath Take 1 Capsule by [...] FOR ANXIETY 270 Tablet 3 08/08/2022 Active Metoprolol Tartrate 25 MG Oral Tablet (Lopressor) TAKE 1/2 TABLET TWICE DAILY 90 Tablet 3 09/05/2022 Active Metoprolol Tartrate 25 MG Oral Tablet (Lopressor) TAKE ONE-HALF TABLET BY MOUTH TWICE A DAY 90 Tablet 3 09/18/2021 3 Discontinued documented as of this encounter (statuses as of 09/05/2022) Active Problems Problem Noted Date Type 2 [...] as of this encounter (statuses as of 09/05/2022) Resolved Problems Problem Noted Date Resolved Date [...] as of this encounter (statuses as of 09/05/2022) Immunizations Name Administration Dates Next Due DTaP [...] encounter Miscellaneous Notes * Telephone Encounter - Tiny Cooley [facility] - 09/05/2022 10:00 AM EDT Signed Prescriptions: Disp Refills Metoprolol Tartrate 25 MG Oral Tablet (Lop*90 Tab*3 Sig: TAKE 1/2 TABLET TWICE DAILYAuthorizing Provider: ELÍAS GILBERT User: TINY COOLEY-- documented in this encounter Plan of Treatment Upcoming Encounters Date Type Specialty Care Team Description 11/02/2022 Office Visit Family Medicine Mahogany Moncada CRNP [address] [facility] [place] [address] Health Maintenance Due Date Last Done Comments COVID-19 Vaccine (#1) 1945 Hepatitis C Screening 1962 Zoster Vaccines (1 of 2) 1994 Albumin/Creatinine Ratio 04/01/2022 021, 07/16/2020, 06/06/2019 HbA1c 04/23/2022 10/21/2021, 02/14, 01/20/2021, Additional history exists GFR 09/17/2022 03/19/2022, 1207/2021, 10/21/2021, Additional history exists DIABETES-EYE EXAM 10/18/2022 10/18/2021, , 06/30/2019 DIABETES-FOOT EXAM 10/21/2022 10/21/2021, 0 07/16/2020, 07/15/2019 Depression Screening, Annual for Pts 12 and Over 10/21/2022 10/21/2021 Influenza Vaccine (FLU shot) (Season Ended) 2022 07/15/2019, 02/22/2016, 03/08/2015 CKD HGB USE SMARTSET 37767 03/19/202303/19, 03/19/2022, 03/19/2022, Additional history exists CKD PHOS USE SMARTSET 17097 03/19/2023 03/19/2022, 0 10/21/2021 DXA Scan 03/11/2026 [...] the patient have Health Care Power of Manager Of Engineering? No Code Status History Code Status Date [...] Advance Directives occurred with: Patient Care Teams Steeping Press Tender Relationship Specialty Start Date End Date Elías Gilbert MD [address] [place] [address] PCP - General Family Medicine 06/01/21 documented as of this encounter
--- OUTSIDE RECORDS SUMMARY | 2022-12-17 03:25 | External Medical Summary | Summary of Care ---
Author Name [place] [address] Care Team Providers Care Distribution Driver Name Role Phone Elías Gilbert MD Primary Care Provider [phone] Reason for Visit * Reason Comments eRx-Medication Refill Encounter Details Date Type Department Care Team Description 06/12/2022 Refill [facility] [address] [place] [address] Elías Gilbert MD [address] [place] [address] Stage 3a chronic kidney disease (HCC); HTN, goal below 140/90 Allergies Active Allergy Reactions Severity Noted Date Comments Eggs Or Egg-Derived Products Diarrhea 021 documented as of this encounter (statuses as of 06/13/2022) Medications Medication Sig Dispensed Refills Start Date [...] 09/15/2021 Active Furosemide 20 MG Oral Tablet (Lasix)Indicatio [...] BEFORE BEDTIME 90 Tablet 2 06/13/2022 Active Lisinopril 20 MG Oral Tablet (Prinivil)Indica tions:Stage 3a chronic kidney disease (HCC),HTN, goal below 140/90 Take 1 Tablet (20 mg) by mouth every night at bedtime. 7 Tablet 0 03/31/2022 3 Discontinued documented as of this encounter (statuses as of 06/13/2022) Active Problems Problem Noted Date Type 2 [...] as of this encounter (statuses as of 06/13/2022) Resolved Problems Problem Noted Date Resolved Date [...] as of this encounter (statuses as of 06/13/2022) Immunizations Name Administration Dates Next Due DTaP [...] encounter Miscellaneous Notes * Telephone Encounter - Gautam Chinchilla RPh - 06/13/2022 5:47 AM ESTSigned Prescriptions: Disp Refills Lisinopril 20 MG Oral Tablet (Prinivil) 90 Tab*2 Sig: TAKE 1 TABLET BEFORE BEDTIMEAuthorizing Provider: ELÍAS GILBERT User: GAUTAM CHINCHILLA documented in this encounter Plan of Treatment Upcoming Encounters Date Type Specialty Care Team Description 06/19/2022 Laboratory Laboratory [facility] [place] [address] [place] [address] 06/22/2022 Office Visit Family Medicine Teresa Hough [...] Over 10/21/2022 10/21/2021 CKD HGB USE SMARTSET 39845 03/19/202303/19, 03/19/2022, 03/19/2022, Additional history exists CKD PHOS USE SMARTSET 43422 03/19/2023 03/19/2022, 0 10/21/2021 DXA Scan 03/11/2026 [...] of this encounter Visit Diagnoses Diagnosis Stage 3a chronic kidney disease (HCC) HTN, goal below 140/90 Unspecified essential hypertension [...] the patient have Health Care Power of Quality Control Director? No Code Status History Code Status Date [...] Advance Directives occurred with: Patient Care Teams Distribution Driver Relationship Specialty Start Date End Date Elías Gilbert MD [address] [place] [address] PCP - General Family Medicine 06/01/21 documented as of this encounter
--- OUTSIDE RECORDS SUMMARY | 2022-12-17 03:25 | External Medical Summary | Summary of Care ---
Author Name Unknown Organization [facility] Address [address] [place] [address] Phone [phone] Care Team Providers Care Event Coordinator Marketing And Sales Name Role Phone Elías Jade MD Primary Care Provider [phone] Reason for Visit * Reason Onset Date Comments Order Request 07/14/2022 Encounter Details Date Type Department Care Team Description 07/14/2022 Telephone [facility] [address] [place] [address] Elías Jade MD [address] [place] [address] Order Request Allergies Active Allergy [...] Number, if applicable: João Call Back Number: [phone] If the caller is not a current [...] Over 10/21/2022 10/21/2021 CKD HGB USE SMARTSET 99885 03/19/202303/19, 03/19/2022, 03/19/2022, Additional history exists CKD PHOS USE SMARTSET 33544 03/19/2023 03/19/2022, 0 10/21/2021 DXA Scan 03/11/2026 [...] the patient have Health Care Power of Sculpture Instructor? No Code Status History Code Status Date [...] Advance Directives occurred with: Patient Care Teams Event Coordinator Marketing And Sales Relationship Specialty Start Date End Date Elías Jade MD [address] [facility] [place] [address] PCP - General Family Medicine 06/01/21 documented as of this encounter
--- OUTSIDE RECORDS SUMMARY | 2022-12-17 03:26 | External Medical Summary | Summary of Care ---
Author Name Unknown Organization [facility] [place] [address] Care Team Providers Care Eco Industrial Development Consultant Name Role Phone Elías Jade MD Primary Care Provider [phone] Reason for Visit * Reason Onset Date Comments Hospital Follow-Up 03/20/2022 Encounter Details Date Type Department Care Team Description [facility] [address] [place] [address] Elías Jade MD [address] [place] [address] Hospital Follow-Up (/) Allergies Active Allergy Reactions Severity Noted Date Comments Eggs Or Egg-Derived Products Diarrhea 021 documented as of this encounter (statuses as of 03/20/2022) Medications Medication Sig Dispensed Refills Start Date End Date Status aspirin enteric coated 81 MG TBEC Take 1 Tab by mouth daily. 0 Active omeprazole (PRILOSEC) 20 MG CPDR Take 1 Cap by mouth daily. 0 Active Escitalopram Oxalate 10 MG Oral Tablet (Lexapro)Indicatio ns:ADRIANA (generalized anxiety disorder) Take 1 Tablet by mouth daily. 90 Tablet 1 03/07/2021 Active Atorvastatin Calcium 80 MG Oral Tablet (Lipitor)Indicatio ns:Dyslipidemia, goal LDL below 100 Take by mouth 1 Tablet before bedtime. 90 Tablet 1 09/16/2021 Active Lisinopril 20 MG Oral Tablet (Prinivil)Indicati ons:Stage 3a chronic kidney disease (HCC),HTN, goal below 140/90 Take by mouth 1 Tablet before bedtime. 90 Tablet 2 09/16/2021 Active metFORMIN HCl 1000 MG Oral Tablet [...] the morning. 90 Tablet 3 10/21/2021 Active Additional Information Patient not taking.Reported on 03/19/2022 Meclizine HCl 25 MG Oral Tablet (Antivert)Indicati ons:Dizziness TAKE 1 TABLET NEEDED IN THE MORNING AND 1 TABLET NEEDED AT NOON AND 1 TABLET NEEDED IN THE EVENING FOR DIZZINESS 30 Tablet 1 10/31/2021 Active Benzonatate 100 MG Oral Capsule (Tessalon Perles) Take by mouth 1 Capsule as needed in the morning AND 1 Capsule as needed at noon AND 1 Capsule as needed in the evening for Cough. Do not cut, crush, or chew.. 50 Capsule 1 01/11/2022 Active documented as of this encounter (statuses as of 03/20/2022) Active Problems Problem Noted Date Type 2 [...] as of this encounter (statuses as of 03/20/2022) Resolved Problems Problem Noted Date Resolved Date [...] as of this encounter (statuses as of 03/20/2022) Immunizations Name Administration Dates Next Due DTaP [...] encounter Miscellaneous Notes * Telephone Encounter - Simone Chua CMA - 03/20/2022 3:14 PM EST Spoke with patient and scheduled her an appointment with on 03/24/22 @ 3pm * Telephone Encounter - MANDY Lemons - 03/20/2022 2:13 PM EST No appointments available. Patient declined appointments?: no Is this appointment ACUTE (Yes/No)? N/a HD If YES, were surrounding clinics offered to patient (Yes/No)? no Explain wants [place] only Was patient offered appointments with other available providers (Yes/No)? no If No, explain only wants pcp See Call Details? (Yes or No): yes Patient being discharged today from [facility]. Needs follow up with pcp. Nothing until the end of next week. Needs something sooner. documented in this encounter Plan of Treatment Upcoming Encounters Date Type Specialty Care Team Description 03/24/2022 Office Visit Family Medicine Elías Jade MD [address] [address] 05/01/2022 Office Visit Family Medicine Elías Jade MD [address] [address] Health Maintenance Due Date Last Done Comments Hepatitis B (1 of 3 - 3-dose series) 1945 COVID-19 Vaccine (#1) 1945 Hepatitis C Screening [...] Over 10/21/2022 10/21/2021 CKD HGB USE SMARTSET 60403 03/19/202303/19, 03/19/2022, 03/19/2022, Additional history exists CKD PHOS USE SMARTSET 01610 03/19/2023 03/19/2022, 0 10/21/2021 DXA Scan 03/11/2026 [...] Inactivated Comments Full Code 03/19/2022 4:23 AM This order reflects the patients wishes and were consensually agreed upon. Question Answer Comments Discussion of Advance Directives occurred with: Patient Does the patient have a Living Will? No Does the patient have Health Care Power of Rent And Housing Investigator? No Code Status History Code Status Date [...] Advance Directives occurred with: Patient Care Teams Eco Industrial Development Consultant Relationship Specialty Start Date End Date Elías Jade MD [address] [address] PCP - General Family Medicine 06/01/21 documented as of this encounter
--- OUTSIDE RECORDS SUMMARY | 2022-12-17 03:26 | External Medical Summary | Summary of Care ---
Author Name Unknown Organization [facility] [place] [address] Care Team Providers Care Field Crop Farm Worker Name Role Phone Elías Gilbert MD Primary Care Provider [phone] Reason for Visit * Reason Comments eRx-Medication Refill Encounter Details Date Type Department Care Team Description 03/27/[address] [facility] [address] [facility] [place] [address] Elías Gilbert MD [address] [facility] [place] [address] Dyslipidemia, goal LDL below 100 Allergies Active Allergy Reactions Severity Noted Date Comments Eggs Or Egg-Derived Products Diarrhea 021 documented as of this encounter (statuses as of 03/28/2022) Medications Medication Sig Dispensed Refills Start Date End Date Status aspirin enteric coated 81 MG TBEC Take 1 Tab by mouth daily. 0 Active omeprazole (PRILOSEC) 20 MG CPDR Take 1 Cap by mouth daily. 0 Active Escitalopram Oxalate 10 MG Oral Tablet (Lexapro)Indicat ions:ADRIANA (generalized anxiety disorder) Take 1 Tablet by mouth daily. 90 Tablet 1 03/07/2021 Active Lisinopril 20 MG Oral Tablet (Prinivil)Indica [...] or chew.. 50 Capsule 1 01/11/2022 Active Atorvastatin Calcium 80 MG Oral Tablet (Lipitor)Indicat ions:Dyslipidemi a, goal LDL below 100 TAKE 1 TABLET BEFORE BEDTIME 90 Tablet 3 03/28/2022 Active Atorvastatin Calcium 80 MG Oral Tablet (Lipitor)Indicat ions:Dyslipidemi a, goal LDL below 100 Take by mouth 1 Tablet before bedtime. 90 Tablet 1 09/16/2021 2 Discontinued documented as of this encounter (statuses as of 03/28/2022) Active Problems Problem Noted Date Type 2 [...] as of this encounter (statuses as of 03/28/2022) Resolved Problems Problem Noted Date Resolved Date [...] as of this encounter (statuses as of 03/28/2022) Immunizations Name Administration Dates Next Due DTaP [...] encounter Miscellaneous Notes * Telephone Encounter - Abdelrahman Lowe [facility] - 03/28/2022 10:04 AM ESTSigned Prescriptions: Disp Refills Atorvastatin Calcium 80 MG Oral Tablet (Li*90 Tab*3 Sig: TAKE 1 TABLET BEFORE BEDTIMEAuthorizing Provider: ELÍAS GILBERT User: ABDELRAHMAN LOWE------ documented in this encounter Plan of Treatment Upcoming Encounters Date Type Specialty Care Team Description 05/01/2022 Office Visit Family Medicine Elías Gilbert MD [address] [address] 06/19/2022 Laboratory Laboratory [facility] [place] [address] [address] 06/22/2022 Office Visit Family Medicine Teresa Hough CRNP [address] [place] [address] Health Maintenance Due Date [...] Over 10/21/2022 10/21/2021 CKD HGB USE SMARTSET 72442 03/19/202303/19, 03/19/2022, 03/19/2022, Additional history exists CKD PHOS USE SMARTSET 27132 03/19/2023 03/19/2022, 0 10/21/2021 DXA Scan 03/11/2026 [...] as of this encounter Visit Diagnoses Diagnosis Dyslipidemia, goal LDL below 100 Other and unspecified hyperlipidemia documented in this encounter Advance Directives Latest Code Status on File Code Status Date Activated Date Inactivated Comments Full Code 03/19/2022 4:23 AM 03/20/2022 6:40 PM This order reflects the patients wishes and were consensually agreed upon. Question Answer Comments Discussion of Advance Directives occurred with: Patient Does the patient have a Living Will? No Does the patient have Health Care Power of Security Control Room Officer? No Code Status History Code Status Date [...] Advance Directives occurred with: Patient Care Teams Field Crop Farm Worker Relationship Specialty Start Date End Date Elías Gilbert MD [address] [id number] PCP - General Family Medicine 06/01/21 documented as of this encounter
--- OUTSIDE RECORDS SUMMARY | 2022-12-17 03:26 | External Medical Summary ---
Author Name Unknown Address Unknown Organization : Laboratory Report Ordering Provider Test Date Status TIFFANY REVEELS 03/20/2022 11:32:56 Final Observation Date Value Abnormality Reference (Units ) Status Glucose Point of Care 03/20/2022 11:32:56 144 Above high normal 70-120 (mg/dL) Final Performing Location
--- OUTSIDE RECORDS SUMMARY | 2022-12-17 03:26 | External Medical Summary ---
Author Name Unknown Address Unknown Organization K01:[facility] - [address] [place] [address] Laboratory Report Ordering Provider Test Date Status JULIO C FLAHERTY 03/19/2022 06:12:00 Final Observation Date Value Abnormality Reference (Units ) Status Triglyceride 03/19/2022 06:12:00 95 <=174 ( mg/dL) Final Performing Location [facility] - [address] [place] [address]
--- OUTSIDE RECORDS SUMMARY | 2022-12-17 03:26 | External Medical Summary ---
Author Name Unknown Address Unknown Organization : Laboratory Report Ordering Provider Test Date Status TIFFANY REVELES 03/19/2022 05:43:54 Final Observation Date Value Abnormality Reference (Units ) Status Glucose Point of Care 03/19/2022 05:43:54 125 Above high normal 70-120 (mg/dL) Final Performing Location
--- OUTSIDE RECORDS SUMMARY | 2022-12-17 03:26 | External Medical Summary ---
Author Name Unknown Address Unknown Organization : Laboratory Report Ordering Provider Test Date Status TIFFANY REVELES 03/19/2022 11:53:46 Final Observation Date Value Abnormality Reference (Units ) Status Glucose Point of Care 03/19/2022 11:53:46 125 Above high normal 70-120 (mg/dL) Final Performing Location
--- OUTSIDE RECORDS SUMMARY | 2022-12-17 03:26 | External Medical Summary ---
Author Name Unknown Address Unknown Organization : Laboratory Report Ordering Provider Test Date Status TIFFANY REVELES 03/20/2022 07:28:20 Final Observation Date Value Abnormality Reference (Units ) Status Glucose Point of Care 03/20/2022 07:28:20 130 Above high normal 70-120 (mg/dL) Final Performing Location
--- OUTSIDE RECORDS SUMMARY | 2022-12-17 03:26 | External Medical Summary ---
Author Name Unknown Address Unknown Organization K1F:LABORATORY [facility] - [address] [address] Laboratory Report Ordering Provider Test Date Status JULIO C FLAHERTY 03/19/2022 06:12:00 Final Observation Date Value Abnormality Reference (Units ) Status BUN 03/19/2022 06:12:00 18 6-20 (mg/dL) Final Creatinine 03/19/2022 06:12:00 1.4 Above high normal 0.5-1.0 (mg/dL) Final Glomerular filtration rate/1.73 sq M.predicted [Volume Rate/Area] in Serum, Plasma or Blood by Creatinine-based formula (CKD-EPI) 03/19/2022 06:12:00 40 Below low normal >=60 (mL/min) Final Performing Location [facility]ATORY [facility] - [address] [address]
--- OUTSIDE RECORDS SUMMARY | 2022-12-17 03:26 | External Medical Summary | Summary of Care ---
Author Name Unknown Organization [facility] [place] [address] Care Team Providers Care Head School Custodian Name Role Phone Elías Jade MD Primary Care Provider [phone] Reason for Visit * Reason Onset Date Comments Hospital Follow-Up 03/21/2022 Encounter Details Date Type Department Care Team Description 03/21/2022 Telephone Ancillary 1st Floor, [place] [address] [place], [place] [id number] Sharon Parsons RN Hospital Follow-Up Allergies Active Allergy Reactions Severity Noted Date Comments Eggs Or Egg-Derived Products Diarrhea 021 documented as of this encounter (statuses as of 03/21/2022) Medications Medication Sig Dispensed Refills Start Date [...] as of this encounter (statuses as of 03/21/2022) Active Problems Problem Noted Date Type 2 [...] as of this encounter (statuses as of 03/21/2022) Resolved Problems Problem Noted Date Resolved Date [...] as of this encounter (statuses as of 03/21/2022) Immunizations Name Administration Dates Next Due DTaP [...] Telephone Encounter - Sharon Parsons RN - 03/21/2022 1:08 PM EST Transitions of Care Note Reason for Referral:Recent Admission Phone visit for follow up: NOREEN Admitted to: [facility], Date: 03/19/22 Discharged to: home, Date: 03/20/22 Diagnosis driving hospitalization: acute chest pain Source/Contact: Patient SUBJECTIVE Consent: Verbal consent for review of hospital discharge: Yes REVIEW OF SYSTEMS Patient/Other Reports: Current patient/caregiver problems or concerns: states she is doing okay now. She did not have her medications last night due to fact that when she took them along to the hospital and realized when she got home they never gave them back to her. She is on her way to the hospital to get them now. CV: Denies problems Pulmonary: Denies problems Chills/Sweats/Fever:Denies chills/sweats Denies fever Appetite:Denies problems such as nausea, vomiting, burning, decreased appetite Current diet: heart healthy diet Bowel: denies problems Bladder: denies problems Wound (If applicable): N/A Pain:Denies Sleep:Denies problems FUNCTIONAL STATUS: ADL'S: Needs Assistance With:N/A as pt is independent IADL'S: Needs Assistance With:N/A as pt is independent Cognitive and Mental Health: denies problems, alert and oriented x 3 and able to communicate, understand instructions, process information. MEDICATION RECONCILIATION Medications: patient states she does not have any of there medications currently. She states she took them to the hospital and they had them and were supposed to bring them to her before she left [facility]. She realized last night, she never received them before leaving. Currently on her way to the hospital to get her medications. Instructed to call if she is not able to obtain her medicationssince she does not have any of them. ASSESSMENT Medication Risk Assessment: currently does not have her medications due to fact they were left at the hospital Did patient fail outpatient treatment? No Discharge instructions available for review? Yes PLAN Symptom Monitoring Interventions:Member/caregiver education - signs and symptoms to contact PrimaryCare (DO NOT DELETE-Three san symptoms patient is to report to PCP) 1. Chest pain 2. Shortness of breath 3. Fever/chills Envelope Sealing Machine OperatorRn Manager of Care interventions/Action Plan: 5 - 7 day follow-up with PCP in place - Date: 03/24/22 Educated on role of NOREEN completed with [...] verbalizes understanding and agrees with plan. Sharon Parsons RN documented in this encounter Plan of Treatment Upcoming Encounters Date Type Specialty Care Team Description 03/24/2022 Office Visit Family Medicine Elías Jade MD [address] [address] 05/01/2022 Office Visit Family Medicine Elías Jade MD [address] [address] Health Maintenance Due Date Last Done Comments [...] Over 10/21/2022 10/21/2021 CKD HGB USE SMARTSET 81137 03/19/202303/19, 03/19/2022, 03/19/2022, Additional history exists CKD PHOS USE SMARTSET 57840 03/19/2023 03/19/2022, 0 10/21/2021 DXA Scan 03/11/2026 [...] the patient have Health Care Power of Enamel Finisher? No Code Status History Code Status Date [...] Directives occurred with: Patient Care Teams Head School Custodian Relationship Specialty Start Date End Date Elías Jade MD [address] [address] PCP - General Family Medicine 06/01/21 documented as of this encounter
--- OUTSIDE RECORDS SUMMARY | 2022-12-17 03:26 | External Medical Summary ---
Author Name Unknown Address Unknown Organization K1F:LABORATORY [facility] - [address] [address] Laboratory Report Ordering Provider Test Date Status JULIO C FLAHERTY 03/19/2022 06:12:00 Final Observation Date Value Abnormality Reference (Units ) Status WBC, Total 03/19/2022 06:12:00 5.69 4.00-10.80 (K/uL) Final RBC 03/19/2022 06:12:00 3.40 3.85-5.15 (M/uL) Final Hemoglobin 03/19/2022 06:12:00 9.6 Below low normal 12.0-15.3 (g/dL) Final HCT 03/19/2022 06:12:00 30.6 Below low normal 36.0-45.2 (%) Final MCV 03/19/2022 06:12:00 90.0 81.5-97.5 (fL) Final MCH 03/19/2022 06:12:00 28.2 27.0-34.0 (pg) Final MCHC 03/19/2022 06:12:00 31.4 32.0-36.0 (g/dL) Final RDW 03/19/2022 06:12:00 13.6 11.5-15.5 (%) Final Platelets 03/19/2022 06:12:00 184 140-400 (K/uL) Final MPV 03/19/2022 06:12:00 10.6 6.6-11.1 (fL) Final Nucleated erythrocytes/100 leukocytes [Ratio] in Blood by Automated count 03/19/2022 06:12:00 0 <=0 (/100 WBCs) Final Performing Location LABORATORY [facility] - [address] [address]
--- OUTSIDE RECORDS SUMMARY | 2022-12-17 03:26 | External Medical Summary | Summary of Care ---
Author Name Unknown Organization [place] [address] Care Team Providers Care Library Historian Name Role Phone Elías Jade MD Primary Care Provider [phone] Reason for Visit * Reason Comments Chest Pain * Auth/Cert Specialty Diagnoses / Procedures Referred By Olivia torrez Referred To Contact Referral ID Status Reason Start Date Expiration Date Visits Re quested Visits Authorized [id number] Encounter Details Date Type Department Care Team Description 03/19/2022 - 03/20/2022 Emergency 5A [facility] 5th Floor [address] [place], [place] [id number] Lloyd Lakhani, [address] [place] [address] Radha Wagner MD [address] [place] [id number] Asif Downing MD [address] [place] [address] [phone] Various: EKG,KRAVS Allergies Active Allergy Reactions Severity Noted Date [...] Escitalopram Oxalate 10 MG Oral Tablet (Lexapro)Indicat ions:ADRAINA (generalized anxiety disorder) Take 1 Tablet by mouth daily. 90 Tablet 1 03/07/2021 Active Atorvastatin Calcium 80 MG Oral Tablet (Lipitor)Indicat ions:Dyslipidemi a, goal LDL below 100 Take by mouth 1 Tablet before bedtime. 90 Tablet 1 09/16/2021 Active Lisinopril 20 MG Oral Tablet (Prinivil)Indica [...] 03/19/2022 Meclizine HCl 25 MG Oral Tablet (Antivert)Indica [...] or chew.. 50 Capsule 1 01/11/2022 Active B-12 1000 MCG Sublingual Tablet Sublingual PLACE 1,000 MCG UNDER THE TONGUE DAILY 30 Tab 11 07/09/2020 2 Discontinued ProAir HFA 108 (90 Base) MCG/ACT Inhalation Aerosol SolutionIndicati ons:Bronchitis, complicated Inhale by mouth 2 Puffs every 4 hours as needed for Wheezing. 8 g 1 06/30/2021 2 Discontinued Gabapentin 300 MG Oral Capsule (Neurontin) 1 Capsule before bedtime. 0 08/12/2021 2 Discontinued documented as of this encounter [...] Sign Reading Time Taken Comments Blood Pressure 158/60 03/20/2022 11:33 AM EST Pulse 74 03/20/2022 11:33 AM EST Temperature 36.9 C (98.4 F) 03/20/2022 11:[address] Respiratory Rate 16 03/20/2022 11:33 AM EST Oxygen Saturation 94% 03/20/2022 11:33 AM EST Inhaled Oxygen Concentration - - Weight 104.3 kg (230 lb) 03/19/2022 4:44 AM EST Height 162.6 cm (5' 4") 03/19/2022 12:49 AM EST Body Mass Index 39.48 03/19/2022 12:49 AM EST documented in this encounter Functional Status [...] 03/19/2022 documented as of this encounter Discharge Summaries * Asif Downing MD - 03/20/2022 1:01 PM EST [facility] [id number] Admission Date: 03/19/2022 Discharge Date: 03/20/2022 DISPOSITION ON DISCHARGE: home Active Hospital Problems Diagnosis *Principal Diagnosis - Acute chest pain 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 ADMISSION HISTORY & PHYSICAL EXAM (focused): 75 yo woman with below pmh that is significant for dm, HTN, gerd, anxiety, lbbb. Today she developed chest pain that woke from sleep at 3am. It's been coming and going since and she still feels a mild discomfort. She reported increased stress at home as her older sister is sick, her son lives with her and has all his "stuff" out, and her daughters don't talk to her. She denies fever, chills, dyspnea, nausea, vomiting, dysuria. No rash or cough. She doesn't use cpap or oxygen for mandy Constitutional:no acute distress HEENT:normal: normocephalic, atraumatic Eyes:sclera and conjunctiva normal Neck:supple CV:normal rate Chest:normal respiratory effort, lungs clear to auscultation Abdomen:soft, bowel sounds normal, no tenderness Extremities:noedema Skin:warm, dry, intact: Neuro:alert, oriented to person, place,non-focal Psych: anxious and tearful HOSPITAL COURSE (focused): 76 yo Female with H/O Aortic valve replacement, Anxiety, DM/ HTN p/w Chest pain Troponin negative. Telemetry no events. Cardiology consulted. Nuclear stress test came back normal.PE study negative. Pt didn't have any chest pain symptoms while admitted to floor. Stable for discharge. Follow up with Primary multimedia coordinator in 2 weeks Operations & Procedures: none Complications: none significant Significant Lab and Imaging Results: Latest Reference Range & Units Most Recent Sodium 135 - 146 mmol/L 138 03/19/22 06:12 Potassium 3.5 - 5.1 mmol/L 4.4 03/19/22 06:12 Chloride 98 - 107 mmol/L 107 03/19/22 06:12 CO2 22 - 32 mmol/L 23 03/19/22 06:12 BUN 6 - 20 mg/dL 18 03/19/22 06:12 Creatinine 0.5 - 1.0 mg/dL 1.4 (H) 03/19/22 06:12 Estimated Glomerular Filtration Rate >=60 mL/min 40 (L) 03/19/22 06:12 Anion Gap 7 - 15 mmol/L 8 03/19/22 06:12 Glucose 70 - 120 mg/dL 140 (H) 03/19/22 06:12 Calcium 8.4 - 10.2 mg/dL 9.6 03/19/22 06:12 Magnesium 1.5 - 2.6 mg/dL 2.0 03/19/22 06:12 Phosphorus 2.5 - 4.8 mg/dL 3.6 03/19/22 02:41 Protein 6.0 - 8.3 g/dL 7.3 03/19/22 01:00 INR 0.8 - 1.2 1.0 03/19/22 06:12 Prothrombin Time 11.6 - 15.2 seconds 12.9 03/19/22 06:12 D-Dimer <0.50 ug/mL FEU 0.84 (H) 03/19/22 01:00 Glucose Meter 70 - 120 mg/dL 144 (H) 03/20/22 11:32 (H): Data is abnormally high (L): Data is abnormally low Latest Reference Range & Units Most Recent WBC 4.00 - 10.80 K/uL 5.69 03/19/22 06:12 HGB 12.0 - 15.3 g/dL 9.6 (L) 03/19/22 06:12 HCT 36.0 - 45.2 % 30.6 (L) 03/19/22 06:12 MCV 81.5 - 97.5 fL 90.0 03/19/22 06:12 PLT 140 - 400 K/uL 184 03/19/22 06:12 (L): Data is abnormally low Results Pending at Discharge: Lab Results Pending at Discharge: None MEDICATION UPDATES AT DISCHARGE START taking these medications INSTRUCTIONS omeprazole 20 MG Cpdr Commonly known as: PriLOSEC Take 1 Cap by mouth daily. CONTINUE taking these medications INSTRUCTIONS aspirin enteric coated 81 MG Tbec Take 1 Tab by mouth daily. atorvaSTATin 80 MG Tablet Commonly known as: Lipitor Take by mouth 1 Tablet before bedtime. Benzonatate 100 MG Capsule Commonly known as: Tessalon Perles Take by mouth 1 Capsule as needed in the morning AND 1 Capsule as needed at noon AND 1 Capsule as needed in the evening for Cough. Do not cut, crush, or chew.. busPIRone 10 MG Tablet Commonly known as: Buspar TAKE ONE TABLET BY MOUTH THREE TIMES A DAY NEEDED FOR ANXIETY escitalopram 10 MG Tablet Commonly known as: Lexapro Take 1 Tablet by mouth daily. Lisinopril 20 MG Tablet Commonly known as: Prinivil Take by mouth 1 Tablet before bedtime. meclizine 25 MG Tablet Commonly known as: Antivert TAKE 1 TABLET NEEDED IN THE MORNING AND 1 TABLET NEEDED AT NOON AND 1 TABLET NEEDED IN THEEVENING FOR DIZZINESS MetFORMIN 1000 MG Tablet Commonly known as: Glucophage Take by mouth 1 Tablet 2 times a day with morning and evening meals . Metoprolol Tartrate 25 MG Tablet Commonly known as: Lopressor TAKE ONE-HALF TABLET BY MOUTH TWICE A DAY STOP taking these medications B-12 1000 MCG Subl Gabapentin 300 MG Capsule Commonly known as: Neurontin ProAir HFA 108 (90 Base) MCG/ACT Aers CONTINUE taking these medications but follow up with your Primary Care Physician (PCP). INSTRUCTIONS Furosemide 20 MG Tablet Commonly known as: Lasix Take by mouth 1 Tablet in the morning. SCHEDULED FOLLOW-UP: Future Appointments Appt Date/Time Provider Department 05/01/2022 9:00 AM Elías Jade MD [facility] Other Information Indwelling Devices: LINES ALL Duration Peripheral Line Right Arm 20 Gauge 1 day Vital Signs (last recorded): Most Recent Systolic BP: 158 mmHg (03/20/22 1133) Most Recent Diastolic BP: 60 mmHg (03/20/22 1133) Pulse: 74 (03/20/22 1133) Resp: 16 (03/20/22 1133) Most Recent Temperature: 36.89 C (03/20/22 1133) Weight: 104.3 kg (230 lb) (03/19/22 0444) SpO2: 94 % (03/20/22 1133) Allergies: Eggs or egg-derived products Activity: as tolerated Diet: cardiac diet Code status (this admission): Full Code Discussion of adv directives occurred with - adult: Patient Does patient have living will: No Does patient have health care power of tombstone setter: No Condition on Discharge: stable Isolation status: None Cognition: normal HOSPITAL CONSULTS ORDERED: CARDIOLOGY CONSULT IP REFERRING PHYSICIAN: Ref: [id number]] NO STREET ADDRESS AVAILABLE None (office) None (fax) PRIMARY CARE PROVIDER: PCP: Elías Jade MD [address] / [place] [phone] (office) [phone] (fax) Note: To contact a physician responsible for this patients hospital care, please call [employer] [phone]. Attending Attestation: I spent a total of 40 minutes providing discharge day management for this patient. I did see and evaluate the patient on 03/20/2022. The management included final examination of the patient, discussion of the hospital stay with the patient and/or caregivers, and preparation of discharge records, pres criptions, and referral forms that relate to the patient's hospital stay. This time is reflective of my part in the discharge day management as documented in the summary and notes, and doesn't include resident or other providers time providing the above to the patient. documented in this encounter Discharge Instructions * Discharge Instr - AVS* Asif Downing MD - 03/20/2022 11:28 AM EST Discharge Date: 03/20/2022 The information below provides you with the instructions and the list of medications you need to betaking following discharge from the hospital. If you have any questions, please ask before leaving. If you have questions after leaving, you can reach us at the numbers below. YOUR HOSPITAL PROVIDERS: Discharging Provider: Asif Downing MD Provider Department: Hospital Medicine To reach this Provider Sunday through Sunday (8:00 AM to 4:30 PM) for any questions or test results: Call [phone] For after-hours concerns: Call [phone] and have your provider paged, or the provider phone specialist for the Department of Hospital Medicine paged. [...] available, you can go to your local [facility] or [facility] during their business hours. In an EMERGENCY situation: Call 911 or go to the nearest emergency room. A BRIEF SUMMARY OF YOUR HOSPITAL STAY: You came to the hospital with: complaint of Chest pain Your main diagnosis at discharge was: Chest pain ACS ruled out Operations & Procedures performed: none Complications: none significant Inpatient test results that are pending at discharge: none Advance Directive Documented: Advance Directive Does the Patient have an Advance Directive? No YOUR FOLLOW UP APPOINTMENTS: Primary Care Provider Information: PCP: Elías Jade MD [address] [place] [address] [phone] (office) [phone] (fax) An appointment was requested with your PCP (Elías Jade MD) within 7 days. (Please take this form to this visit with your primary care physician.) You need the following studies in the future: none INSTRUCTIONS: Diet: Heart healthy diet Activity: As tolerated MEDICATIONS ON DISCHARGE: Please bring a list of ALL medications that you take to ALL of your doctor visits. REASON(S) FOR MEDICATION CHANGE(S): Special Instructions: - Stress test came back normal - Follow up with your primary multimedia coordinator at [facility] in 2 weeks documented in this encounter Progress Notes * Theo Noble DO - 03/20/2022 9:12 AM EST Cardiology Progress Note [facility] [address] Name: Sahra Rodríguez Location: [facility] [id number] Date: 03/20/2022 Time: 9:12 AM Follow Up: Chest Pain HPI: Sahra Rodríguez is a 76 year old who has a history of a bioprosthetic aortic valve replacement in 2011. She comes to the hospital complaining of chest discomfort. She tells me last evening shedeveloped anterior chest discomfort in this was nonexertional. Her symptoms lasted approximately 10minutes. She states she did have a recurrence of her chest discomfort since she has been to the hospital. She does have a left bundle-branch block on EKG. No acute events noted overnight. Denies chest pain. PAST MEDICAL HISTORY: Past Medical History: Diagnosis Date Anxiety 2015 Diabetes (HCC) 2005 approx GERD (gastroesophageal reflux disease) PAST SURGICAL HISTORY: Past Surgical History: Procedure Laterality Date REMOVE CATARACT, INSERT LENS PROSTH Bilateral REMOVE GALLBLADDER 1987 REPLACEMENT OF AORTIC VALVE (KONNO) 2010 23mm [...] and No recent change in breathing. CARDIOVASCULAR: No chest pain, No dyspnea on exertion, No edema, [...] Admission medications Medication Sig Last Dose Discont. Benzonatate 100 MG Oral Capsule (Tessalon Perles) Take by mouth 1 Capsule as needed in the morning AND 1 Capsule as needed at noon AND 1 Capsule as needed in the evening for Cough. Do not cut, crush,or chew.. Unknown Metoprolol Tartrate 25 MG Oral Tablet (Lopressor) TAKE ONE-HALF TABLET BY MOUTH TWICE A DAY 03/18/2022 Atorvastatin Calcium 80 MG Oral Tablet (Lipitor) Take by mouth 1 Tablet before bedtime. 03/18/2022 Lisinopril 20 MG Oral Tablet (Prinivil) Take by mouth 1 Tablet before bedtime. 03/18/2022 metFORMIN HCl 1000 MG Oral Tablet (Glucophage) Take by mouth 1 Tablet 2 times a day with morning and evening meals . 03/18/2022 busPIRone HCl 10 MG Oral Tablet (Buspar) TAKE ONE TABLET BY MOUTH THREE TIMES A DAY NEEDED FOR ANXIETY 03/18/2022 Escitalopram Oxalate 10 MG Oral Tablet (Lexapro) Take 1 Tablet by mouth daily. 03/18/2022 aspirin enteric coated 81 MG TBEC Take 1 Tab by mouth daily. 03/18/2022 Meclizine HCl 25 MG Oral Tablet (Antivert) TAKE 1 TABLET NEEDED IN THE MORNING AND 1 TABLET NEEDED AT NOON AND 1 TABLET NEEDED IN THE EVENING FOR DIZZINESS Over 30 Days Furosemide 20 MG Oral Tablet (Lasix) Take by mouth 1 Tablet in the morning. Patient not taking: Reported on 03/19/2022 Not Taking Gabapentin 300 MG Oral Capsule (Neurontin) 1 Capsule before bedtime. Patient not taking: Reported on 03/19/2022 Not Taking ProAir HFA 108 (90 Base) MCG/ACT Inhalation Aerosol Solution Inhale by mouth 2 Puffs every 4 hours as needed for Wheezing. Patient not taking: Reported on 03/19/2022 Not Taking B-12 1000 MCG Sublingual Tablet Sublingual PLACE 1,000 MCG UNDER THE TONGUE DAILY Patient not taking: No sig reported Not Taking omeprazole (PRILOSEC) 20 MG CPDR Take 1 Cap by mouth daily. Patient not taking: Reported on 03/19/2022 Not Taking PHYSICAL EXAMINATION: Most Recent Vital Signs: BP: 149 mmHg/52 mmHg (03/20/22 07) Pulse: 71 (03/20/22 07) Temp: 37.11 C (03/20/22699) Resp: 16 (03/20/22699) SpO2: 95 % (03/20/22699) Vital Signs Last 24 Hours: Systolic BP: @SBPMAXR(24)@Temperature: Temp Av.8 C (98.2 F) Min: 36.4 C (97.5 F) Max: 37.1 C (98.8 F) Pulse: Pulse Av.3 Min: 65 Max: 75 Respirations: Resp Av Min: 16 Max: 16 SpO2: SpO2 Av % Min: 93 % Max: 95 % General: No acute distress. A+Ox3. HEENT: Normocephalic. Atraumatic. PERRL. EOMI. Conjunctiva and sclera clear. NECK: No carotid bruits. No JVD. Carotid upstrokes are brisk. Heart: RRR. S1 and S2 noted. No murmur. No rubs or gallops. PMI non displaced. Lungs: Clear to auscultation. No wheezes.No rhonchi. No rales. Abdomen: Normal bowel sounds. Soft. Nontender. No masses or organomegaly. No abdominal bruits. Extremities: No edema. No clubbing or cyanosis. Pulses: radial=2/4, posterior tibial=2/4, dorsalis pedis = 2/4. NEURO: No focal deficits. PSYCH: Appropriate affect and insight. DATA: Labs & Imaging Reviewed Below: EKG 03/19/2022 NSR with SA [address] PE 03/19/2022 COMMENTS: 1. Consistent with the [employer]'s Incidental Findings Committee white paper (J Am Madeline Radiol 2018): Any incidental renal lesion less than 1 cm or classified as too small to characterize, or any incidental cystic renal lesion characterized as simple-appearing, is likely benign. No follow-up imaging is recommended for these lesions per consensus recommendations based on imaging criteria. 2. Consistent with the [employer]'s Incidental Findings Committee white paper (J Am Madeline Radiol 2015): In patients aged 35 years and older with an incidental thyroid nodule equal to or greater than 1.[address], MRI or extrathyroidal US, further evaluation with dedicated thyroid US is recommended for patients with normal life expectancy and without comorbidities. For smaller nodules without suspicious features, no further evaluation or follow up is recommended. Echocardiogram 05/03/2021 Qualitative LV ejection Fraction = 50% (low normal). The right ventricular systolic function is normal. The right ventricular cavity size is qualitatively normal. The left atrium is severely enlarged (>48 ml/m^2,). Significant aortic valve prosthesis regurgitation is absent. Aortic valve prosthesis stenosis is absent. Mild mitral regurgitation is present. Mild tricuspid regurgitation is present. A small anterior loculated pericardial effusion is present IMPRESSION: 1.Chest Pain 2.Hx AVR 2011 3.LBBB 4.MANDY 5. DM2 6. GERD PLAN: -Patient remains chest pain free. Likely was non-cardiac related. She has been feeling stressed andis tearful this morning. -Further recommendations pending nuclear stress test results -She will continue to follow with [facility] as an outpatient Case discussed and coordinated with Dr. Noble. Please see Dr. Noble's notes for further recommendations. RODRIGUEZ Mack Department of Cardiology Attending Attestation: I have discussed the patient's management with RODRIGUEZ Mack and agree with the note. Please refer to the documented findings and plan of care. The patient's service consisted of an evaluation. Anthony seen and evaluated the patient. Patient doing well today. She has not any recurrence of chest pain. She was able to walk in the hallways without any recurrence of chest pain. On clinical exam she is euvolemic. Lexiscan nuclear stress test was negative for inducible ischemia. Okay to be discharged from cardiac standpoint. She can follow up with her outpatient multimedia coordinator and get an echocardiogram done as an outpatient. documented in this encounter H&P Notes * Dmitry Cedillo MD - 03/19/2022 4:19 AM EST Images from the original note were not included. [facility] PRESENTING PROBLEM: Chest pain HPI: This is a 75 yo woman with below pmh that is significant for dm, HTN, gerd, anxiety, lbbb. Today she developed chest pain that woke from sleep at 3am. It's been coming and going since and she still feels a mild discomfort. She reported increased stress at home as her older sister is sick, her son lives with her and has all his "stuff" out, and her daughters don't talk to her. She denies fever, chills, dyspnea, nausea, vomiting, dysuria. No rash or cough. She doesn't use cpap or oxygen for mandy Subjective ROS: As per HPI and all other systems reviewed and negative. Past Medical History: Diagnosis Date Anxiety 2014 Diabetes (HCC) 2004 approx GERD (gastroesophageal reflux disease) Past Surgical History: Procedure Laterality Date REMOVE CATARACT, INSERT LENS PROSTH Bilateral REMOVE GALLBLADDER 1986 REPLACEMENT OF AORTIC VALVE (KONNO) 2010 23mm Jocelynn Coto pericardial bioprosthesis Family History Problem Relation Age of Onset Heart attack Mother Stroke Sister Cancer Brother unknown primary As above otherwise non-contributory Social History Tobacco Use Smoking status: Never Smokeless tobacco: Never Vaping Use Vaping Use: Never used Substance Use Topics Alcohol use: Never Drug use: Never Comment: no h/o IVDA MEDICATIONS: Prior to admission medications have been reviewed. ALLERGIES: Eggs or egg-derived products Objective Physical Exam Most Recent Vital Signs: BP: 134 mmHg/82 mmHg (03/19/22299) Pulse: 81 (03/19/22299) Temp: 36.28 C (03/19/2248) Resp: 16 (03/19/22299) SpO2: 95 % (03/19/2248) Constitutional: no acute distress HEENT: normal: normocephalic, atraumatic Eyes: sclera and conjunctiva normal Neck: supple CV: normal rate Chest: normal respiratory effort, lungs clear to auscultation Abdomen: soft, bowel sounds normal, no tenderness Extremities: no edema Skin: warm, dry, intact: Neuro: alert, oriented to person, place, non-focal Psych: anxious and tearful Peripheral Line Right Arm 20 Gauge (Active) Number of days: 0 STUDIES: Labs and other studies reviewed with pertinent findings noted below: EKG: LBBB noted on prior studies. Results for orders placed or performed during the hospital encounter of 03/19/22 COMPREHENSIVE METABOLIC PANEL Result Value Ref Range BUN 20 6 - 20 mg/dL Creatinine 1.4 (H) 0.5 - 1.0 mg/dL Estimated Glomerular Filtration Rate 38 (L) >=60 mL/min Sodium 139 135 - 146 mmol/L Potassium 3.9 3.5 - 5.1 mmol/L Chloride 105 98 - 107 mmol/L CO2 24 22 - 32 mmol/L Anion Gap 10 7 - 15 mmol/L Glucose 192 (H) 70 - 120 mg/dL Albumin 4.3 3.8 - 5.0 g/dL AST 15 10 - 35 U/L Alkaline Phosphatase 99 35 - 130 U/L Bilirubin, Total 0.3 <=1.2 mg/dL Calcium 10.1 8.4 - 10.2 mg/dL Protein 7.3 6.0 - 8.3 g/dL ALT 11 10 - 35 U/L TROPONIN T, HIGH SENSITIVITY Result Value Ref Range Troponin T, High Sensitivity 27 (H) <=14 ng/L CBC Result Value Ref Range WBC 7.06 4.00 - 10.80 K/uL RBC 3.89 3.85 - 5.15 M/uL HGB 10.8 (L) 12.0 - 15.3 g/dL HCT 35.0 (L) 36.0 - 45.2 % MCV 90.0 81.5 - 97.5 fL MCH 27.8 27.0 - 34.0 pg MCHC 30.9 32.0 - 36.0 g/dL RDW 13.7 11.5 - 15.5 % PLT 220 140 - 400 K/uL MPV 10.1 6.6 - 11.1 fL nRBCs 0 <=0 /100 WBCs DIFFERENTIAL, AUTOMATED Result Value Ref Range WBC 7.06 4.00 - 10.80 K/uL Neutrophils % 65.7 40.0 - 75.0 % Lymphocytes % 22.7 18.0 - 42.0 % Monocytes % 7.1 1.0 - 11.0 % Eosinophils % 3.7 0.0 - 6.0 % Basophils % 0.7 0.0 - 2.0 % Immature Granulocytes % 0.1 0.0 - 2.0 % Absolute Neutrophils 4.64 1.80 - 7.70 K/uL Absolute Lymphocytes 1.60 1.00 - 4.80 K/ul Absolute Monocytes 0.50 0.00 - 1.10 K/uL Absolute Eosinophils 0.26 0.00 - 0.70 K/uL Absolute Basophils 0.05 0.00 - 0.20 K/uL Absolute Immature Granulocytes 0.01 0.00 - 0.20 K/uL TROPONIN T, HIGH SENSITIVITY Result Value Ref Range Troponin T, High Sensitivity 26 (H) <=14 ng/L D-DIMER Result Value Ref Range D-Dimer 0.84 (H) <0.50 ug/mL FEU RESPIRATORY PATHOGEN PANEL, PCR Result Value Ref Range Adenovirus by PCR Negative Negative Coronavirus 229E by PCR Negative Negative Coronavirus HKU1 by PCR Negative Negative Coronavirus NL63 by PCR Negative Negative Coronavirus OC43 by PCR Negative Negative Coronavirus SARS-CoV-2 by PCR Negative Negative Human Metapneumovirus by PCR Negative Negative Rhinovirus/Enterovirus by PCR Negative Negative Influenza A Virus by PCR Negative Negative Influenza B Virus by PCR Negative Negative Parainfluenza Virus 1 by PCR Negative Negative Parainfluenza Virus 2 by PCR Negative Negative Parainfluenza Virus 3 by PCR Negative Negative Parainfluenza Virus 4 by PCR Negative Negative Respiratory Syncytial Virus by PCR Negative Negative Bordetella pertussis by PCR Negative Negative Chlamydia pneumoniae by PCR Negative Negative Mycoplasma pneumoniae by PCR Negative Negative Bordetella parapertussis by PCR Negative Negative XR CHEST 2 VIEWS Final Result EXAM XR CHEST 2 VIEWS-03/19/2022 1:18 am HISTORY chest pain COMPARISON Radiograph dated 06/30/2021. TECHNIQUE Frontal and lateral views of the chest. FINDINGS Lines/Tubes: None. Lungs/Pleura: No consolidative opacities, significant edema, or pleural effusions. No discernible pneumothorax. Heart/Mediastinum: Stable cardiomediastinal silhouette. Aortic valve replacement. Bones/Soft Tissues: No acute osseous finding. Sternotomy wires. Upper Abdomen: Cholecystectomy clips. IMPRESSION IMPRESSION No acute cardiopulmonary findings. I have personally reviewed this examination and agree with the resident/fellow physician's interpretation. CT PULMONARY EMBOLUS W CONTRAST (Results Pending) Assessment and Plan IMPRESSION: Principal Problem: Acute chest pain Active Problems: ADRIANA (generalized anxiety disorder) MANDY (obstructive sleep apnea) Left bundle branch block (LBBB) Uncontrolled hypertension Type 2 diabetes mellitus with stage 3b chronic kidney disease (HCC) Resolved Problems: * No resolved hospital problems. * DIFFERENTIAL AND PLAN: Observe on telemetry floor -serial enzymes -prn anxiolytic and prn nitro -continue home meds -insulin ss for dm2 control -prn o2 for sleep apnea PHARMACOLOGIC VTE PROPHYLAXIS:Enoxaparin CODE STATUS: Full Code EXPECTED DISCHARGE DATE: 1-2 days or more documented in this encounter Procedure Notes * Theo Noble DO - 03/19/2022 10:04 AM ESTAssociated Order(s): EKG REASON FOR STUDY: CP CONCLUSIONS: Sinus rhythm with marked sinus arrhythmia Left bundle branch block Abnormal ECG When compared with ECG of 19-MAR-2022 00:53, No significant change was found Ventricular Rate: 73 Atrial Rate: 73 WV Interval: 160 QRS Duration: 148 QT/QTc: 422/464 ms P-R-T [place]: 21 : -9 : 148 degrees * Radha Cleary RN - 03/19/2022 5:11 AM EST 0435: Pt arrived to from ED via stretcher. Pt assisted into room with supervision. Pt A&Ox4,respirations even, unlabored. Pt denies pain at this time. Pt oriented to room, call madden, white board, hourly rounding, etc. Pt voicing no needs at this time. Fall interventions in place, call madden within reach. * Theo Noble DO - 03/19/2022 12:53 AM ESTAssociated Order(s): EKG REASON FOR STUDY: CP CONCLUSIONS: Sinus rhythm with marked sinus arrhythmia Left bundle branch block Abnormal ECG When compared with ECG of 04-JUN-2021 06:46, No significant change Ventricular Rate: 72 Atrial Rate: 72 WV Interval: 170 QRS Duration: 156 QT/QTc: 422/462 ms P-R-T [place]: 60 : -9 : 147 degrees documented in this encounter Consult Notes * Santosh Perez DO - 03/19/2022 11:37 AM ESTAssociated Order(s): CARDIOLOGY CONSULT IP Cardiology Consultation [facility] [place] 03/19/2022 Reason for Consultation: 1. Chest pain History of Present Illness: Sahra Rodríguez is a 76 year old year old female who has a history of a bioprosthetic aortic valve replacement in 2011. She comes to the hospital complaining of chest discomfort. She tells me last evening she developed anterior chest discomfort in this was nonexertional. Her symptoms lasted approx imately 10 minutes. She states she did have a recurrence of her chest discomfort since she has beento the hospital. She does have a left bundle-branch block on EKG. Review of Systems: Constitutional (fever/chills/unintentional weight loss/vision/hearing): [...] hemoglobin A1c goal of less than 7.0% ([facility]) E11.9 Dyslipidemia, goal LDL below 100 E78.5 ADRIANA (generalized anxiety disorder) F41.1 S/P aortic valve replacement Z95.2 Right renal mass N28.89 Type 2 diabetes mellitus with diabetic chronic kidney disease ([facility]) E11.22 Secondary hyperparathyroidism, non-renal ([facility]) E21.1 B12 deficiency E53.8 Severe obesity with body mass index (BMI) of 35.0 to 39.9 with serious comorbidity ([facility]) E66.01 MANDY (obstructive sleep apnea) G47.33 Acute chest pain R07.9 Left bundle branch block (LBBB) I44.7 Uncontrolled hypertension I10 Left heart failure ([facility]) I50.1 Type 2 diabetes mellitus with stage 3b chronic kidney disease ([facility]) E11.22, N18.32 Chronic kidney disease, stage 3b ([facility]) N18.32 Past Surgical History: Procedure Laterality Date REMOVE CATARACT, INSERT LENS PROSTH Bilateral REMOVE GALLBLADDER 1986 REPLACEMENT OF AORTIC VALVE ([place]) 2010 23mm Jocelynn Coto pericardial bioprosthesis Family [...] Admission medications Medication Sig Last Dose Discont. Benzonatate 100 MG Oral Capsule (Tessalon Perles) Take by mouth 1 Capsule as needed in the morning AND 1 Capsule as needed at noon AND 1 Capsule as needed in the evening for Cough. Do not cut, crush,or chew.. Unknown Metoprolol Tartrate 25 MG Oral Tablet (Lopressor) TAKE ONE-HALF TABLET BY MOUTH TWICE A DAY 03/18/2022 Atorvastatin Calcium 80 MG Oral Tablet (Lipitor) Take by mouth 1 Tablet before bedtime. 03/18/2022 Lisinopril 20 MG Oral Tablet (Prinivil) Take by mouth 1 Tablet before bedtime. 03/18/2022 metFORMIN HCl 1000 MG Oral Tablet (Glucophage) Take by mouth 1 Tablet 2 times a day with morning and evening meals . 03/18/2022 busPIRone HCl 10 MG Oral Tablet (Buspar) TAKE ONE TABLET BY MOUTH THREE TIMES A DAY NEEDED FOR ANXIETY 03/18/2022 Escitalopram Oxalate 10 MG Oral Tablet (Lexapro) Take 1 Tablet by mouth daily. 03/18/2022 aspirin enteric coated 81 MG TBEC Take 1 Tab by mouth daily. 03/18/2022 Meclizine HCl 25 MG Oral Tablet (Antivert) TAKE 1 TABLET NEEDED IN THE MORNING AND 1 TABLET NEEDED AT NOON AND 1 TABLET NEEDED IN THE EVENING FOR DIZZINESS Over 30 Days Furosemide 20 MG Oral Tablet (Lasix) Take by mouth 1 Tablet in the morning. Patient not taking: Reported on 03/19/2022 Not Taking Gabapentin 300 MG Oral Capsule (Neurontin) 1 Capsule before bedtime. Patient not taking: Reported on 03/19/2022 Not Taking ProAir HFA 108 (90 Base) MCG/ACT Inhalation Aerosol Solution Inhale by mouth 2 Puffs every 4 hours as needed for Wheezing. Patient not taking: Reported on 03/19/2022 Not Taking B-12 1000 MCG Sublingual Tablet Sublingual PLACE 1,000 MCG UNDER THE TONGUE DAILY Patient not taking: No sig reported Not Taking omeprazole (PRILOSEC) 20 MG CPDR Take 1 Cap by mouth daily. Patient not taking: Reported on 03/19/2022 Not Taking Current Facility-Administered Medications Medication Dose Route Frequency Provider Acetaminophen (Tylenol) tab 650 mg 650 mg Oral Q6H PRN Roddy Perez PA-C Albuterol Sulfate (Proventil) (2.5 MG/3ML) 0.083% inhalation solution 2.5 mg 2.5 mg Nebulizer Q4H PRN Roddy Perez PA-C ALPRAZolam (xaNAX) tab 0.25 mg 0.25 mg Oral BID PRN Roddy Perez PA-C aspirin chew tab 81 mg 81 mg Oral Daily(AM) Roddy Perez PA-C atorvaSTATin (Lipitor) tab 80 mg 80 mg Oral HS Roddy Perez PA-C busPIRone (Buspar) tab 10 mg 10 mg Oral TID(AM/NOON/HS) Roddy Perez PA-C dextrose 50 % inj 25 mL 25 mL IV Push PRN Roddy Perez PA-C dextrose 50 % inj 50 mL 50 mL IV Push PRN Roddy Perez PA-C [START ON 03/20/2022] Enoxaparin (Lovenox) inj 40 mg 40 mg Subcutaneous Daily 1000 Roddy Perez PA-C escitalopram (Lexapro) tab 10 mg 10 mg Oral Daily(AM) Roddy Perez PA-C Furosemide (Lasix) tab 20 mg 20 mg Oral Daily(AM) Roddy Perez PA-C Gabapentin (Neurontin) cap 300 mg 300 mg Oral HS Roddy Perez PA-C glucagon (Glucagen) inj 1 mg 1 mg Intramuscular PRN Roddy Perez PA-C Glucose (Glutose 15) 40 % gel 15 g of glucose 15 g of glucose Oral PRN Roddy Perez PA-C Glucose (Glutose 15) 40 % gel 30 g of glucose 30 g of glucose Oral PRN Roddy Perez PA-C glucose chew tab 16 g 16 g Oral PRN Roddy Perez PA-C house antacid (Mi-Acid II) oral susp 15 mL 15 mL Oral Q4H PRN Roddy Perez PA-C insulin aspart (NovoLOG) inj Subcutaneous With Meals and HS Roddy Perez PA-C Lisinopril (Prinivil) tab 20 mg 20 mg Oral QHS Roddy Perez PA-C Metoprolol Tartrate (Lopressor) tab 12.5 mg 12.5 mg Oral BID(AM/PM) Roddy Perez PA-C omeprazole (PriLOSEC) cap 20 mg 20 mg Oral Before breakfast Roddy Perez PA-C ondansetron (Zofran) inj 4 mg 4 mg IV Push Q6H PRN Roddy Perez PA-C oxygen GAS Inhalation Oxygen Roddy Perez PA-C sodium chloride 0.9 % flush/inj 3 mL 3 mL IV Push PRN Roddy Perez PA-C OBJECTIVE/PHYSICAL EXAMINATION: BP 145/73 | Pulse 75 | Temp 37 C (98.6 F) | Resp 16 | Ht 1.626 m (5' 4") | Wt 104.3 kg (230 lb)| SpO2 95% | BMI 39.48 kg/m | BSA 2.17 m General: no acute distress and stated age Eyes: conjunctiva are pink and non-injected, sclera clear Neck: normal jugular venous pulse, no hepatojugular reflux Chest: normal shape and normal respiratory effort Lungs: clear to auscultation and percussion Cardiac Exam: - regular heart sounds, paradoxically split S2 Abdomen: abdomen soft, non-tender, no abnormal masses and no hepatosplenomegaly Musculoskeletal: no gait disturbance, no weakness Extremities: no edema and no cyanosis Neuro: grossly normal exam Psych: appropriate affect and insight. Skin: No rash Lymph: No adenopathy Data: CBC Results: BUN Results: Lab Results Component Value Date/Time BUN - [facility] 18 03/19/2022 06:12 AM BUN - [facility] 20 03/19/2022 01:00 AM BUN - [facility] 17 10/21/2021 09:57 AM BUN - [facility] 11 10/31/2019 10:03 AM BUN - [facility] 15 06/03/2019 07:54 AM BUN - [facility] 17 05/19/2019 10:59 PM Creatinine Results: Lab Results Component Value Date/Time CREATININE - [facility] 1.4 (H) 03/19/2022 06:12 AM CREATININE - [facility] 1.4 (H) 03/19/2022 01:00 AM CREATININE - [facility] 1.3 (H) 10/21/2021 09:57 AM CREATININE - [facility] 1.2 (H) 10/31/2019 10:03 AM CREATININE - [facility] 1.0 06/03/2019 07:54 AM CREATININE - [facility] 1.1 (H) 05/19/2019 10:59 PM CREATININE, RANDOM URINE - [facility] 117 04/01/2021 10:49 AM CREATININE, RANDOM URINE - [facility] 154 07/16/2020 09:04 AM CREATININE, RANDOM URINE - [facility] 49 06/06/2019 04:28 PM Potassium Results: Lab Results Component Value Date/Time POTASSIUM - [facility] 4.4 03/19/2022 06:12 AM POTASSIUM - [facility] 3.9 03/19/2022 01:00 AM POTASSIUM - [facility] 4.6 10/21/2021 09:57 AM POTASSIUM - [facility] 4.6 10/31/2019 10:03 AM POTASSIUM - [facility] 4.7 06/03/2019 07:54 AM POTASSIUM - [facility] 4.0 05/19/2019 10:59 PM Lipid Panel Results: IMPRESSION: 76 year old year old female with history of aortic valve replacement, left bundle-branch block, whopresents with chest discomfort. RECOMMENDATIONS/PLAN: 1. Chest discomfort: For further evaluation we are going to do a pharmacologic Cardiolite stress test. The results will help guide further management. She has an outpatient multimedia coordinator in the [facility] that she follows with regularly. Santosh Perez DO [facility] [address] [place] [id number] This chart was completed in part utilizing [employer] Speech Voice Recognition Software. Grammatical errors, random [...] Nursing Notes * Renee Almonte RN - 03/20/2022 2:32 PM EST NURSING DISCHARGE PROGRESS NOTE [address] [id number] Name: Sahra Rodríguez Location: [facility] [id number] Date: 03/20/2022 Time: 2:39 PM FUNCTIONAL INDEPENDENCE MEASURE (must be completed for all patients on discharge): Feedin = Complete independence Locomotion: 4 = Complete independence Expression: 4 = Complete independence Transfer Mobility: 4 = Complete independence Social Interaction: 4 = Complete independence Destination: Home OXYGENATION: Discharged with O2: No PATIENT DEVICES: None * Radha Cleary RN - 03/19/2022 7:22 AM EST 0744: Pt appears to be in sinus arrhythmia. Dr. Downing aware. documented in this encounter ED Notes * Lloyd Lakhani, - 03/19/2022 2:19 AM EST Date and Time Patient was Seen: 03/19/22 0201. CHIEF COMPLAINT AND HISTORY OF PRESENT ILLNESS Sahra Rodríguez is a 76 year old female who presents to the ED for evaluation of Chest Pain 76 year old female with PMHx of DM2, left heart failure, s/p aortic valve replacement, dyslipidemia, CKD, presents to the ED for evaluation of achy sternal chest pain that awoke her from sleep about 3 hours ago at 23:00 last night. She reports that she has had this same pain intermittently for about the past year. She is unsure what makes it better or worse, or what causes it. She denies any precipitating falls, traumas, or heavy lifting. She states it is currently resolved, although is unsure what made it go away as she did not take any OTC medications before coming here. Pain does not radiate. She does endorse SOB, but states this has also been ongoing for awhile. She denies lightheadednes s, but adds that she feels a little nervous. She adds that she does follow with cardiology, and thinks that she had an echo 1 month ago at [place] 1 month ago that was normal. She is unsure if herlast stress test. She adds that she was put on a holter monitor also 1 month ago at [place]. Shedenies pain anywhere else, nausea or vomiting, or additional symptoms. She is unsure of any anticoag ulation and none found in this EMR. 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 HENT: Negative for sore throat. Eyes: Negative for visual disturbance. Respiratory: Positive for shortness of breath. Negative for cough. Cardiovascular: Positive for chest pain. Gastrointestinal: Negative for abdominal pain and vomiting. Genitourinary: Negative for difficulty urinating. Musculoskeletal: Negative for back pain. Skin: Negative for rash. Neurological: Negative for headaches. PATIENT HISTORY Allergies: Eggs or egg-derived products Past Medical History: The patient has a past medical history of Anxiety, Diabetes (HCC), and GERD (gastroesophageal reflux disease). Past Surgical History: The patient has a past surgical history that includes remove gallbladder (1986); replacement of aortic valve (kon[place]) (2010); and remove cataract, insert lens prosth (Bilateral). Social History: The patient's medical record reports that she has never smoked. She has never used smokeless tobacco. She reports that she does not drink alcohol and does not use drugs. Family History: The patient's family history includes Cancer in her brother; Heart attack in her mother; Stroke in her sister. Current Home Medications: Current Outpatient Medications on File Prior to Encounter Medication Sig Dispense Refill Last Dose Benzonatate 100 MG Oral Capsule (Tessalon Perles) Take by mouth 1 Capsule as needed in the morning AND 1 Capsule as needed at noon AND 1 Capsule as needed in the evening for Cough. Do not cut, crush, or chew.. 50 Capsule 1 Meclizine HCl 25 MG Oral Tablet (Antivert) TAKE 1 TABLET NEEDED IN THE MORNING AND 1 TABLET NEEDED AT NOON AND 1 TABLET NEEDED IN THE EVENING FOR DIZZINESS 30 Tablet 1 Furosemide 20 MG Oral Tablet (Lasix) Take by mouth 1 Tablet in the morning. 90 Tablet 3 Metoprolol Tartrate 25 MG Oral Tablet (Lopressor) TAKE ONE-HALF TABLET BY MOUTH TWICE A DAY 90 Tablet 3 Atorvastatin Calcium 80 MG Oral Tablet (Lipitor) Take by mouth 1 Tablet before bedtime. 90 Tablet 1 Lisinopril 20 MG Oral Tablet (Prinivil) Take by mouth 1 Tablet before bedtime. 90 Tablet 2 metFORMIN HCl 1000 MG Oral Tablet (Glucophage) Take by mouth 1 Tablet 2 times a day with morning and evening meals . 180 Tablet 2 busPIRone HCl 10 MG Oral Tablet (Buspar) TAKE ONE TABLET BY MOUTH THREE TIMES A DAY NEEDED FOR ANXIETY 270 Tablet 3 Gabapentin 300 MG Oral Capsule (Neurontin) 1 Capsule before bedtime. ProAir HFA 108 (90 Base) MCG/ACT Inhalation Aerosol Solution Inhale by mouth 2 Puffs every 4 hours as needed for Wheezing. 8 g 1 Escitalopram Oxalate 10 MG Oral Tablet (Lexapro) Take 1 Tablet by mouth daily. 90 Tablet 1 B-12 1000 MCG Sublingual Tablet Sublingual PLACE 1,000 MCG UNDER THE TONGUE DAILY (Patient not taking: Reported on 10/21/2021) 30 Tab 11 aspirin enteric coated 81 MG TBEC Take 1 Tab by mouth daily. omeprazole (PRILOSEC) 20 MG CPDR Take 1 Cap by mouth daily. PHYSICAL EXAM Triage Vitals [03/19/22 0049] BP 159/89 Pulse 80 Resp 19 Temp 36.3 C (97.3 F) Temp src Temporal SpO2 95 % Supplemental O2 Delivery Weight 104.3 kg (230 lb) Height 1.626 m (5' 4") Body mass index is 39.48 kg/m. Triage Pain Assessment Date and Time Location Type of Pain Pain Assessment Scale Pain Score User 03/19/22 0051 mid chest Aching [facility] Scale 0-10 4 (moderate pain) TS Physical Exam Vitals and nursing note reviewed. Constitutional: General: She is not in acute distress. Appearance: Normal appearance. She is well-developed. She is not ill-appearing or diaphoretic. HENT: Head: Normocephalic and atraumatic. Nose: Nose normal. Mouth/Throat: Mouth: Mucous membranes are moist. Eyes: Extraocular Movements: Extraocular movements intact. Cardiovascular: Rate and Rhythm: Normal rate and regular rhythm. Pulmonary: Effort: Pulmonary effort is normal. No respiratory distress. Breath sounds: Normal breath sounds. No wheezing or rales. Abdominal: General: Bowel sounds are normal. There is no distension. Palpations: Abdomen is soft. Tenderness: There is no abdominal tenderness. There is no guarding. Musculoskeletal: General: Normal range of motion. Cervical back: Normal range of motion. Skin: General: Skin is warm. Neurological: General: No focal deficit present. Mental Status: She is alert. Psychiatric: Mood and Affect: Mood normal. PROCEDURES AND TREATMENTS Procedures Medication Orders Placed This Encounter Acetaminophen (Tylenol) tab 975 mg (975 mg Oral Given 03/19/22 0242) NSS 0.9% 1,000 mL bolus infusion (1,000 mL Peripheral IV New Bag 03/19/22313) Orders Placed This Encounter Procedures Extra Light Blue Top Comprehensive Metabolic Panel CBC with WBC Differential Troponin T, High Sensitivity CBC Differential, Automated Troponin T, High Sensitivity D-Dimer RespiratoryPathogen Panel,PCR XR Chest [address] Pulmonary Embolus with IV contrast EKG EKG MEDICAL DECISION MAKING Nursing notes and vital signs were reviewed. ED Course as of 03/19/22319 Sun Mar 19, [id number] Delta troponin negative. D-dimer elevated PE study ordered. I spoke with the admitting hospitalist who has accepted for further care given her chest pain, cardiac risk factors and heart score. Patient has about baseline renal function but will tolerate the PE study. Viral panel pending. [AT] 318 My independent review the patient's EKG she has a left bundle-branch block with sinus arrhythmia. She has a left bundle-branch block on prior EKGs as well. [AT] ED Course User Index [AT] Lloyd Lakhani DO Scoring Tools Results: HEART Score History: Slightly suspicious ECG: Normal Age: 65+ Risk Factors: >2 risk factors or hx of atherosclerotic disease Troponin: Less than or equal to normal limit HEART Score: 4 Differential Diagnoses Based on my history, physical exam, and evaluation, the differential includes, but is not limited, to the following diagnoses: ACS, PE, dissection less likely, dehydration, electrolyte abnormality, viral illness, carditis, costochondritis, musculoskeletal pain,. 76-year-old female presenting with chest pain. She also complains of shortness of breath. She has multiple cardiac risk factors. Heart score is going to be at least 4. Vitals reassuring. Equal radialpulses. No lower extremity edema or swelling. Abdomen soft and nontender. D-dimer, troponin labs sent. Amount and/or Complexity of Data Reviewed Clinical lab tests: Ordered and reviewed Radiology tests: Ordered and reviewed Other medical tests: ordered and reviewed Decide to obtain previous medical records or to obtain history from someone other than the patient:yes (See HPI section above for details about who history was obtained from) Clinical Impressions Final diagnoses: Chest pain Disposition Admitted The patient's condition at disposition was: stable Admission Order Ordered Status Ordering Provider 03/19/22317 Assign to Observation ONCE LLOYD Westbrook was the attending physician who cared for this patient. By signing my name below,I, Richy Sotelo, attest that this documentation has been prepared under the direction and in the presence of the provider listed above. Electronically Signed: Richy Sotelo, 03/19/2022, 3:20 AM I personally performed the services described in this documentation, reviewed and edited the documentation which was dictated to the scribe in my presence, and it accurately records my words and actions. * Marie Nevarez RN - 03/19/2022 12:52 AM EST Pt states mid chest pain woke her up around 2300 this evening. States she was dizzy with it. Deniesany other symptoms with the chest pain. States "my nerves been bad". + home stressors. documented in this encounter Miscellaneous Notes * Communication - Raquel Ambriz RN - 03/20/2022 2:17 PM EST Appointment: Rema will be calling you to set up a follow up appointment with you primary care physician. Elías Jade MD Family Medicine [phone] * Pt Handout (on AVS) - Raquel Ambriz RN - 03/20/2022 2:05 PM EST Images from the original note were not included. [id number] Omeprazole Delayed Release Oral Tablet Brands: Prilosec Uses This medicine is used for the following purposes: indigestion inflammation of stomach inflammation of the esophagus stomach acid stomach acid reflux ulcers in stomach or intestines ulcers in stomach or intestines Instructions Swallow the medicine without crushing or chewing it. Take the medicine before eating. It is very important that you take the medicine at about the same time every day. It will work bestif you do this. Keep the medicine at room temperature. Avoid heat and direct light. This medicine can reduce the absorption of other medicines. Talk to your doctor or pharmacist aboutthe best times to use this product. Tell your doctor if you have severe or persistent sweating, diarrhea or vomiting. These can increase your risk of a serious side effect. It is important that you keep taking each dose of this medicine on time even if you are feeling well. If you forget to take a dose on time, take it as soon as you remember. If it is almost time for thenext dose, do not take the missed dose. Return to your normal dosing schedule. Do not take 2 doses of this medicine at one time. Drug interactions can change how medicines work or increase risk for side effects. Tell your healthcare providers about all medicines taken. Include prescription and [id number] medicines, vitamins, and herbal medicines. Speak with your doctor or pharmacist before starting or stopping any medicine. Tell your doctor if symptoms do not get better or if they get worse. Do not suddenly stop taking this medicine. Check with your doctor before stopping. Cautions Tell your doctor and pharmacist if you ever had an allergic reaction to a medicine. Do not use the medication any more than instructed. Contact your doctor if you notice a change in the amount or darkening of your urine. Please tell your doctor if you have moderate to severe diarrhea while on this medicine. Do not treat the diarrhea with kviy-gde-[id number] diarrhea medicine. Tell the doctor or pharmacist if you are , planning to be , or . Do not take Padmini's wort while on this medicine. Do not share this medicine with anyone who has not been prescribed this medicine. Some patients have serious side effects from this medicine. Ask your pharmacist to show you the information from the Food and Drug Administration (FDA) and discuss it with you. Side Effects The following is a list of some common side effects from this medicine. Please speak with your doctor about what you should do if you experience these or other side effects. headaches stomach upset or abdominal pain Call your doctor or get medical help right away if you notice any of these more serious side effects: severe or persistent abdominal pain bone pain severe, watery or bloody diarrhea fever swelling in the neck or throat numbness or tingling in hands and feet fast or irregular heart beats pain in the joints signs of kidney damage (such as change in urine color or bubbly urine) muscle aches, spasms or abnormal movements butterfly-shaped rash on nose and cheeks seizures blood in stool A few people may have an allergic reaction to this medicine. Symptoms can include difficulty breathing, skin rash, itching, swelling, or severe dizziness. If you notice any of these symptoms, seek medical help quickly. Extra Please speak with your doctor, nurse, or pharmacist if you have any questions about this medicine. [email or web address] IMPORTANT NOTE: This document tells you briefly how to take your medicine, but it does not tell youall there is to know about it. Your doctor or pharmacist may give you other documents about your medicine. Please talk to them if you have any questions. Always follow their advice. There is a more complete description of this medicine available in Bulgarian. Scan this code on your smartphone or tablet or use the web address below. You can also ask your pharmacist for a printout. If you have any questions, please ask your pharmacist. The display and use of this drug information is subject to Terms of Use. Copyright(c) 2021 [employer]. 2535-3164 [employer]. All rights reserved. This information is not intended as a substitute for professional medical care. Always follow your healthcare professional's instructions. * Pt Handout (on AVS) - Raquel Ambriz RN - 03/20/2022 2:05 PM EST Images from the original note were not included. [id number] Uncertain Causes of Chest Pain Chest pain [...] redness in one leg Last Reviewed Date: 04/16/202119992626-7563 [employer]. All rights reserved. This information is not intended as a substitute for professional medical care. Always follow your healthcare professional's instructions. * Ancillary Progress Note - Marsha Campos RN - 03/20/2022 9:46 AM EST Stress portion of nuclear stress test complete. Pt no longer needs to be NPO for this test and will need to return to dept in approximately 1hr formore images. * Care Plan - Erica Campos RN - 03/20/2022 5:02 AM EST Clinical Goal(s): Patient will report <5/10 pain this shift. (03/19/221944) Possible barriers to meeting goal(s)/advancing plan of care: admitting diagnosis Stability of the patient: Moderately stable - low risk of patient condition declining or worsening Summary regarding today's goal(s): Met: Patient did not have any complaints of pain this shift. Recommendations: Continue plan of care. * Care Plan - Karen Mendez RN - 03/19/2022 5:53 PM EST Clinical Goal(s): Pt will have no falls this shift (03/19/22 0801) Possible barriers to meeting goal(s)/advancing plan of care: hospital environment, admitting diagnosis, dizziness upon admission Stability of the patient: Moderately stable - low risk of patient condition declining or worsening Summary regarding today's goal(s): Met: Pt had no falls this shift. Recommendations: implement fall precautions, monitor for increased risk of falls, and continue planof care. * ED Resource Forester Note - Mihir Barroso RN - 03/19/2022 4:27 AM EST Report called to Radha MCLEAN on 5A. documented in this encounter Plan of Treatment Upcoming Encounters Date Type Specialty Care Team Description 03/24/2022 Office Visit Family Medicine Elías Jade MD [address] [id number] 05/01/2022 Office Visit Family Medicine Elías Jade MD [address] [id number] Health Maintenance Due Date Last Done Comments [...] Over 10/21/2022 10/21/2021 CKD HGB USE SMARTSET 54022 03/19/202303/19, 03/19/2022, 03/19/2022, Additional history exists CKD PHOS USE SMARTSET 07598 03/19/2023 03/19/2022, 0 10/21/2021 DXA Scan 03/11/2026 [...] Comments GLUCOSE METER, POINT OF CARE ALFONSO 03/20/2022 11:32 AM EST NM MYOCARDIAL PERFUSION IMAGING SPECT MULTIPLE STUDIES WITH PHARMACOLOGIC INTERVENTION Routine 03/20/2022 11:27 AM EST NM MYOCARDIAL PERFUSION IMAGING SPECT MULTIPLE STUDIES WITH PHARMACOLOGIC INTERVENTION Routine 03/20/2022 9:11 AM EST GLUCOSE METER, POINT OF CARE ALFONSO 03/20/2022 7:28 AM EST GLUCOSE METER, POINT OF CARE ALFONSO 03/19/2022 9:28 PM EST GLUCOSE METER, POINT OF CARE ALFONSO 03/19/2022 4:39 PM EST GLUCOSE METER, POINT OF CARE ALFONSO 03/19/2022 11:53 AM EST HC ECG TRACING ONLY STAT 03/19/2022 1 0:04 AM EST Chest pain GLUCOSE METER, POINT OF CARE ALFONSO 03/19/2022 7:56 AM EST BASIC METABOLIC PANEL Routine 03/19/2022 6:12 AM EST PT INR Routine 03/19/2022 6:12 AM EST CBC Routine 03/19/2022 6:12 AM EST MAGNESIUM Routine 03/19/2022 6:12 AM EST LIPID PANEL WITHOUT DIRECT LDL Routine 03/19/2022 6:12 AM EST GLUCOSE METER, POINT OF CARE ALFONSO 03/19/2022 5:[address] PULMONARY EMBOLUS W CONTRAST STAT 03/19/2022 3:28 AM EST RESPIRATORY PATHOGEN PANEL, PCR STAT 03/19/2022 3:13 AM EST TROPONIN T, HIGH SENSITIVITY STAT 03/19/2022 2:41 AM EST PHOSPHORUS Add-on 03/19/2022 2:41 AM EST MAGNESIUM Add-on 03/19/2022 2:41 AM EST XR CHEST 2 VIEWS STAT 03/19/2022 1:18 AM EST EXTRA LIGHT BLUE TOP Routine 03/19/2022 1:00 AM EST DIFFERENTIAL, AUTOMATED STAT 03/19/2022 1:00 AM EST TROPONIN T, HIGH SENSITIVITY STAT 03/19/2022 1:00 AM EST COMPREHENSIVE METABOLIC PANEL STAT 03/19/2022 1:00 AM EST D-DIMER Add-on 03/19/2022 1:00 AM EST CBC WITH WBC DIFFERENTIAL STAT 03/19/2022 1:00 AM EST CBC STAT 03/19/2022 1:00 AM EST HC ECG TRACING ONLY STAT 03/19/2022 1 2:53 AM EST Chest pain documented in this encounter Results * (ABNORMAL) GLUCOSE METER, POINT OF CARE (03/20/2022 11:32 AM EST) Glucose Meter 144(H) 70 - 120 mg/dL 03/20/2022 11:53 AM EST [facility] Blood Whole blood specimen / Unknown 03/20/2022 11:32 AM EST 03/20/2022 11:53 AM EST Asif Downing MD LAB POINT OF CARE TE ST DOCKED DEVICE UNSOLICITED RESULTS [facility] [address] [place] [address] * NM MYOCARDIAL PERFUSION IMAGING SPECT MULTIPLE STUDIES WITH PHARMACOLOGIC INTERVENTION (03/20/2022 11:27 AM EST) Narrative Scheduling, Silent - 03/20/2022 11:28 AM EST Results can be viewed in the patient's cardiology tab of Chart Review for this date of service. Santosh Perez DO [facility] NUC[facility] * NM MYOCARDIAL PERFUSION IMAGING SPECT MULTIPLE STUDIES WITH PHARMACOLOGIC INTERVENTION (03/20/2022 9:11 AM EST) LEFT VENTRICULAR EJECTION FRACTION 47 % [facility] CARDIOLOGY 03/20/2022 9:11 AM EST Santosh Perez [facility] NUCLE[facility] Performing Organization Address City/[facility]/ZIP Co de Phone Number [facility] * (ABNORMAL) GLUCOSE METER, POINT OF CARE (03/20/2022 7:28 AM EST) Glucose Meter 130(H) 70 - 120 mg/dL 03/20/2022 8:11 AM EST [facility] Blood Whole blood specimen / Unknown 03/20/2022 7:28 AM EST 03/20/2022 8:11 AM EST Asif Downing MD LAB POINT OF CARE TE ST DOCKED DEVICE UNSOLICITED RESULTS Performing Organization Address [facility]/[place] Co de Phone Number [facility] [address] [place] [address] * (ABNORMAL) GLUCOSE METER, POINT OF CARE (03/19/2022 9:28 PM EST) Glucose Meter 138(H) 70 - 120 mg/dL 03/19/2022 9:42 PM EST [facility] Blood Whole blood specimen / Unknown 03/19/2022 9:28 PM EST 03/19/2022 9:42 PM EST Asif Downing MD LAB POINT OF CARE TE ST DOCKED DEVICE UNSOLICITED RESULTS Performing Organization Address [facility]/[place] Co de Phone Number [facility] [address] [place] [address] * GLUCOSE METER, POINT OF CARE (03/19/2022 4:39 PM EST) Glucose Meter 114 70 - 120 mg/dL 03/19/2022 5:07 PM EST [facility] Blood Whole blood specimen / Unknown 03/19/2022 4:39 PM EST 03/19/2022 5:07 PM EST Asif Downing MD LAB POINT OF CARE TE ST DOCKED DEVICE UNSOLICITED RESULTS Performing Organization Address [facility]/[place] Co de Phone Number [facility] [address] [place] [address] * (ABNORMAL) GLUCOSE METER, POINT OF CARE (03/19/2022 11:53 AM EST) Glucose Meter 125(H) 70 - 120 mg/dL 03/19/2022 11:57 AM EST [facility] Blood Whole blood specimen / Unknown 03/19/2022 11:53 AM EST 03/19/2022 11:57 AM EST Asif Downing MD LAB POINT OF CARE TE ST DOCKED DEVICE UNSOLICITED RESULTS Performing Organization Address [facility] de Phone Number [facility] [address] [place] [address] * EKG (03/19/2022 10:04 AM EST) 03/19/2022 10:0 4 AM EST Procedure Note Theo Noble DO - 03/19/2022 10:04 AM EST REASON FOR STUDY: CP CONCLUSIONS: Sinus rhythm with marked sinus arrhythmia Left bundle branch block Abnormal ECG When compared with ECG of 19-MAR-2022 00:53, No significant change was found Ventricular Rate: 73 Atrial Rate: 73 WV Interval: 160 QRS Duration: 148 QT/QTc: 422/464 ms P-R-T [place]: 21 : -9 : 148 degrees Roddy Perez PA-C EKG Performing Organization Address [facility]/[place] Co de Phone Number [facility] * (ABNORMAL) GLUCOSE METER, POINT OF CARE (03/19/2022 7:56 AM EST) Glucose Meter 123(H) 70 - 120 mg/dL 03/19/2022 7:59 AM EST [facility] Blood Whole blood specimen / Unknown 03/19/2022 7:56 AM EST 03/19/2022 7:59 AM EST Asif Downing MD LAB POINT OF CARE TE ST DOCKED DEVICE UNSOLICITED RESULTS [facility] [address] [place] [address] * LIPID PANEL WITHOUT DIRECT LDL (03/19/2022 6:12 AM EST) Triglycerides 95 <=174 mg/dL 03/19/2022 12:53 PM EST LABORATORY [facility] Comment: Triglyceride Reference Ranges (mg/dL): <150 Acceptable 150-174 Borderline high 175-499 High >=500 Very high Cholesterol 151 <200 mg/dL 03/19/2022 12:53 PM EST [facility]ATORY [facility] Comment: Total Cholesterol Reference Ranges (mg/dL): <200 Desirable 200-239 Borderline high >=240 High HDL Cholesterol 61 >49 mg/dL 12:53 PM EST [facility]ATORY [facility] Comment: HDL Cholesterol Reference Ranges (mg/dL): >=60 High (Desirable) <50 Low (Undesirable) For Females <40 Low (Undesirable) For Males Non-HDL Cholesterol 90 <=159 mg/dL 03/19/2022 12:53 PM EST [facility]ATORY [facility] Comment: Non-HDL Cholesterol Reference Range (mg/dL): <100 Target level for high risk ASCVD patient <130 Optimal for general population 130-159 Near optimal for general population 160-189 Borderline High 190-219 High >=220 Very High LDL Cholesterol 71 <=129 mg/dL 03/19/2022 12:53 PM EST [facility]ATORY [facility] Comment: LDL Cholesterol Reference Ranges (mg/dL): <70 Target level for high risk ASCVD patient <100 Optimal for general population 100-129 Near optimal for general population 130-159 Borderline high 160-189 High >=190 Very high Blood Venous blood specimen / Unknown Venipuncture / Unknown 03/19/2022 6:12 AM EST 03/19/2022 6:50 AM EST Roddy Perez PA-C LAB BLOOD ORDERABLE S LABORATORY [facility] [address] [place] [address] * MAGNESIUM (03/19/2022 6:12 AM EST) Magnesium 2.0 1.5 - 2.6 mg/dL 03/19/2022 7:28 AM EST LABORATORY [facility] Blood Venous blood specimen / Unknown Venipuncture / Unknown 03/19/2022 6:12 AM EST 03/19/2022 6:51 AM EST Roddy Perez PA-C LAB BLOOD ORDERABLE S Performing Organization Address City/[facility]/ZIP Co de Phone Number LABORATORY [address] [phone] * PT INR (03/19/2022 6:12 AM EST) Prothrombin Time 12.9 11.6 - 15.2 seconds 03/19/2022 7:10 AM EST LABORATORY [facility] INR 1.0 0.8 - 1.2 03/19/2022 7:10 AM EST LABORATORY [facility] Blood Venous blood specimen / Unknown Venipuncture / Unknown 03/19/2022 6:12 AM EST 03/19/2022 6:51 AM EST [facility] LABORATORY [facility] - 03/19/2022 7:10 AM EST Warfarin Therapy INR: 2.0-3.0 conventional anticoagulation INR: 2.5-3.5 high intensity anticoagulation Roddy Perez PA-C LAB BLOOD ORDERABLE S LABORATORY [address] [address] * (ABNORMAL) CBC (03/19/2022 6:12 AM EST) WBC 5.69 4.00 - 10.80 K/uL 03/19/2022 7:00 AM EST LABORATORY [facility] RBC 3.40 3.85 - 5.15 M/uL 03/19/2022 7:00 AM EST LABORATORY GL HGB 9.6(L) 12.0 - 15.3 g/dL 03/19/2022 7:00 AM EST LABORATORY [facility] HCT 30.6(L) 36.0 - 45.2 % 03/19/2022 7:00 AM EST LABORATORY GL MCV 90.0 81.5 - 97.5 fL 03/19/2022 7:00 AM EST LABORATORY GL MCH 28.2 27.0 - 34.0 pg 03/19/2022 7:00 AM EST LABORATORY GL MCHC 31.4 32.0 - 36.0 g/dL 03/19/2022 7:00 AM EST LABORATORY GL RDW 13.6 11.5 - 15.5 % 03/19/2022 7:00 AM EST LABORATORY GL PLT 184 140 - 400 K/uL 03/19/2022 7:00 AM EST LABORATORY GL MPV 10.6 6.6 - 11.1 fL 03/19/2022 7:00 AM EST LABORATORY GL nRBCs 0 <=0 /100 WBCs 03/19/2022 7:00 AM EST LABORATORY GL Blood Venous blood specimen / Unknown Venipuncture / Unknown 03/19/2022 6:12 AM EST 03/19/2022 6:51 AM EST Roddy Perez PA-C LAB BLOOD ORDERABLE S LABORATORY GL [address] [place] [address] * (ABNORMAL) BASIC METABOLIC PANEL (03/19/2022 6:12 AM EST) BUN 18 6 - 20 mg/dL 03/19/2022 7:28 AM EST LABORATORY GL Creatinine 1.4(H) 0.5 - 1.0 mg/dL 03/19/2022 7:28 AM EST LABORATORY GL Estimated Glomerular Filtration Rate 40(L) >=60 mL/min 03/19/2022 7:28 AM EST LAB[facility]ATORY [facility] Comment:eGFR is calculated b ased on the CKD-EPI 2020 equation Sodium 138 135 - 146 mmol/L 03/19/2022 7:28 AM EST LAB[facility]ATORY [facility] Potassium 4.4 3.5 - 5.1 mmol/L 03/19/2022 7:28 AM EST [facility] Chloride 107 98 - 107 mmol/L 03/19/2022 7:28 AM EST LAB[facility]ORY [facility] CO2 23 22 - 32 mmol/L 03/19/2022 7:28 AM EST [facility] Anion Gap 8 7 - 15 mmol/L 03/19/2022 7:28 AM EST LAB[facility]ORY [facility] Glucose 140(H) 70 - 120 mg/dL 03/19/2022 7:28 AM EST LAB[facility]ORY [facility] Calcium 9.6 8.4 - 10.2 mg/dL 03/19/2022 7:28 AM EST LAB[facility]ORY [facility] Blood Venous blood specimen / Unknown Venipuncture / Unknown 03/19/2022 6:12 AM EST 03/19/2022 6:51 AM EST Roddy Perez PA-C LAB BLOOD ORDERABLE S Performing Organization Address City/[facility]/ZIP Co de Phone Number LABORATORY [address] [address] * (ABNORMAL) GLUCOSE METER, POINT OF CARE (03/19/2022 5:43 AM EST) [facility] Glucose Meter 125(H) 70 - 120 mg/dL 03/20/2022 12:15 PM EST [facility] Blood Whole blood specimen / Unknown 03/19/2022 5:43 AM EST 03/20/2022 12:15 PM EST Asif Downing MD LAB POINT OF CARE TE ST DOCKED DEVICE UNSOLICITED RESULTS [facility] [address] [place] [id number] * CT PULMONARY EMBOLUS W CONTRAST (03/19/2022 3:28 AM EST) Anatomical Region Laterality Modality Chest, Cardio, Body Computed Hernán ography 03/19/2022 3:20 AM EST Impressions 03/19/2022 4:50 AM EST IMPRESSION: 1. No acute abnormality in the chest. No pulmonary emboli. 2. Incidental 2.6 cm left thyroid nodule; see management recommendations below. 3. Additional incidental/nonemergent findings are discussed in the body of the report. COMMENTS: 1. Consistent with the [employer]'s Incidental Findings Committee white paper (J Am Madeline Radiol 2018): Any incidental renal lesion less than 1 cm or classified as too small to characterize, or any incidental cystic renal lesion characterized as simple-appearing, is likely benign. No follow-up imaging is recommended for these lesions per consensus recommendations based on imaging criteria. 2. Consistent with the [employer]'s Incidental Findings Committee white paper (J Am Madeline Radiol 2015): In patients aged 35 years and older with an incidental thyroid nodule equal to or greater than 1.[address], MRI or extrathyroidal US, further evaluation with dedicated thyroid US is recommended for patients with normal life expectancy and without comorbidities. For smaller nodules without suspicious features, no further evaluation or follow up is recommended. THIS DOCUMENT HAS BEEN ELECTRONICALLY SIGNED BY JOSE MIGUEL GUERRERO MD Narrative 03/19/2022 4:50 AM EST PROCEDURE INFORMATION: Exam: CTA Chest With Contrast Exam date and time: 03/19/2022 3:20 AM Age: 76 years old Clinical indication: Shortness of breath; Prior surgery; Surgery date: 6+ months; Additional info: Positive d-dimer, shortness of breath and chest pain TECHNIQUE: Imaging protocol: Computed tomographic angiography of the chest with contrast. 3D rendering (Not supervised by radiologist): MIP and/or 3D reconstructed images were created by the technologist. Radiation optimization: All CT scans at this facility use at least one of these dose optimization techniques: automated exposure control; mA and/or kV adjustment per patient size (includes targeted exams where dose is matched to clinical indication); or iterative reconstruction. Contrast material: [id number]; Contrast volume: 100 ml; Contrast route: INTRAVENOUS (IV); COMPARISON: CR XR CHEST 2 VIEWS 06/30/2021 9:48 AM FINDINGS: Pulmonary arteries: No filling defects in the central, lobar, or proximal segmental pulmonary arteries to suggest pulmonary emboli. Normal caliber main pulmonary artery. Aorta: Normal caliber thoracic aorta with mild atherosclerotic mural calcification. Thyroid: 2.6 cm hypoattenuating nodule in the left thyroid lobe. Lungs: There is minimal linear subsegmental atelectasis versus scarring in the right middle lobe. The lungs are otherwise clear and well aerated, without consolidation or mass. The trachea and central main airways are patent and normal in caliber. Pleural spaces: No pleural effusion or pneumothorax. Heart: The heart is mildly enlarged. Aortic and mitral annular calcifications are noted. There is an aortic valve prosthesis in place. There are mild coronary artery calcifications. No pericardial effusion. Lymph nodes: Unremarkable. No pathologically enlarged mediastinal, hilar, or axillary lymph nodes. Bones/joints: Median sternotomy. Degenerative changes. No suspicious osseous lesions. Soft tissues: Unremarkable. Other findings: 5.1 cm simple-appearing cortical cyst in the upper pole of the right kidney. Cholecystectomy. Nonspecific nodular thickening of the left adrenal gland. Procedure Note Jose Miguel Guerrero MD - 03/19/2022 PROCEDURE INFORMATION: Exam: CTA Chest With Contrast Exam date and time: 03/19/2022 3:20 AM Age: 76 years old Clinical indication: Shortness of breath; Prior surgery; Surgery date: 6+ months; Additional info: Positive d-dimer, shortness of breath and chestpain TECHNIQUE: Imaging protocol: Computed tomographic angiography of the chest withcontrast. 3D rendering (Not supervised by radiologist): MIP and/or 3D reconstructed images were created by the technologist. Radiation optimization: All CT scans at this facility use at least one ofthese dose optimization techniques: automated exposure control; mA and/or kV adjustment per patient size (includes targeted exams where dose is matchedto clinical indication); or iterative reconstruction. Contrast material: [id number]; Contrast volume: 100 ml; Contrast route: INTRAVENOUS (IV); COMPARISON: CR XR CHEST 2 VIEWS 06/30/2021 9:48 AM FINDINGS: Pulmonary arteries: No filling defects in the central, lobar, or proximal segmental pulmonary arteries to suggest pulmonary emboli. Normal calibermain pulmonary artery. Aorta: Normal caliber thoracic aorta with mild atherosclerotic mural calcification. Thyroid: 2.6 cm hypoattenuating nodule in the left thyroid lobe. Lungs: There is minimal linear subsegmental atelectasis versus scarring inthe right middle lobe. The lungs are otherwise clear and well aerated, without consolidation or mass. The trachea and central main airways are patent and normal in caliber. Pleural spaces: No pleural effusion or pneumothorax. Heart: The heart is mildly enlarged. Aortic and mitral annularcalcifications are noted. There is an aortic valve prosthesis in place. There are mild coronary artery calcifications. No pericardial effusion. Lymph nodes: Unremarkable. No pathologically enlarged mediastinal, hilar,or axillary lymph nodes. Bones/joints: Median sternotomy. Degenerative changes. No suspiciousosseous lesions. Soft tissues: Unremarkable. Other findings: 5.1 cm simple-appearing cortical cyst in the upper pole ofthe right kidney. Cholecystectomy. Nonspecific nodular thickening of the left adrenal gland. IMPRESSION IMPRESSION: 1. No acute abnormality in the chest. No pulmonary emboli. 2. Incidental 2.6 cm left thyroid nodule; see management recommendationsbelow. 3. Additional incidental/nonemergent findings are discussed in the body ofthe report. COMMENTS: 1. Consistent with the [employer]'s Incidental Findings Committee white paper (J Am Madeline Radiol 2018): Any incidental renal lesionless than 1 cm or classified as too small to characterize, or any incidentalcystic renal lesion characterized as simple-appearing, is likely benign. Nofollow-up imaging is recommended for these lesions per consensus recommendationsbased on imaging criteria. 2. Consistent with the [employer]'s Incidental Findings Committee white paper (J Am Madeline Radiol 2015): In patients aged 35 yearsand older with an incidental thyroid nodule equal to or greater than 1.[address], MRI or extrathyroidal US, further evaluation withdedicated thyroid US is recommended for patients with normal life expectancy andwithout comorbidities. For smaller nodules without suspicious features, no further evaluation or follow up is recommended. THIS DOCUMENT HAS BEEN ELECTRONICALLY SIGNED BY JOSE MIGUEL GUERRERO MD Lloyd Lakhani [facility] CT * RESPIRATORY PATHOGEN PANEL, PCR (03/19/2022 3:13 AM EST) Adenovirus by PCR Negative Negative 022 4:05 AM EST LABORATORY [facility] Coronavirus 229E by PCR Negative Negative 03/19/2022 4:05 AM EST LABORATORY [facility] Coronavirus HKU1 by PCR Negative Negative 03/19/2022 4:05 AM EST LAB[facility]ATORY [facility] Coronavirus NL63 by PCR Negative Negative 03/19/2022 4:05 AM EST LAB[facility]ATORY [facility] Coronavirus OC43 by PCR Negative Negative 03/19/2022 4:05 AM EST LAB[facility]ATORY [facility] Coronavirus SARS-CoV-2 by PCR Negative Negative 03/19/2022 4:05 AM EST LABORATORY [facility] Human Metapneumovirus by PCR Negative Negative 03/19/2022 4:05 AM EST LABORATORY [facility] Rhinovirus/Enterovi sukhwinder by PCR Negative Negative 03/19/2022 4:05 AM EST LABORATORY [facility] Influenza A Virus by PCR Negative Negative 03/19/2022 4:05 AM EST LABORATORY [facility] Influenza B Virus by PCR Negative Negative 03/19/2022 4:05 AM EST LABORATORY [facility] Parainfluenza Virus 1 by PCR Negative Negative 03/19/2022 4:05 AM EST LABORATORY [facility] Parainfluenza Virus 2 by PCR Negative Negative 03/19/2022 4:05 AM EST LABORATORY [facility] Parainfluenza Virus 3 by PCR Negative Negative 03/19/2022 4:05 AM EST LABORATORY [facility] Parainfluenza Virus 4 by PCR Negative Negative 03/19/2022 4:05 AM EST LABORATORY [facility] Respiratory Syncytial Virus by PCR Negative Negative 03/19/2022 4:05 AM EST LABORATORY [facility] Bordetella pertussis by PCR Negative Negative 03/19/2022 4:05 AM EST LABORATORY [facility] Chlamydia pneumoniae by PCR Negative Negative 03/19/2022 4:05 AM EST LABORATORY [facility] Mycoplasma pneumoniae by PCR Negative Negative 03/19/2022 4:05 AM EST LABORATORY [facility] Bordetella parapertussis by PCR Negative Negative 03/19/2022 4:05 AM EST LABORATORY [facility] Comment: The primers that detect Rhinovirus may cross react with some Enterorviruses. The validation of bronchial specimens, tracheal aspirates, and throats for this assay was developed and performance characteristics determined by [employer]. The validation of alternate specimen types has not been cleared or approved by the U.S. Food and Drug Administration (FDA). It has been determined that such clearance or approval is not necessary. Upper Respiratory Mid-turbinate nasal swab / Unknown Non-blood Collection / Unknown 03/19/2022 3:13 AM EST 03/19/2022 3:19 AM EST Lloyd Lakhani [facility] MICRO - GENERAL ORDERABLES LABORATORY [address] [address] * PHOSPHORUS (03/19/2022 2:41 AM EST) Phosphorus 3.6 2.5 - 4.8 mg/dL 03/19/2022 4:34 AM EST LABORATORY [facility] Blood Venous blood specimen / Unknown Venipuncture / Unknown 03/19/2022 2:41 AM EST 03/19/2022 2:44 AM EST Roddy Perez PA-C LAB BLOOD ORDERABLE S LABORATORY [address] [address] * MAGNESIUM (03/19/2022 2:41 AM EST) Magnesium 2.1 1.5 - 2.6 mg/dL 03/19/2022 4:34 AM EST LABORATORY [facility] Blood Venous blood specimen / Unknown Venipuncture / Unknown 03/19/2022 2:41 AM EST 03/19/2022 2:44 AM EST Roddy Perez PA-C LAB BLOOD ORDERABLE S Performing Organization Address [facility]/ZIP Co de Phone Number LABORATORY [address] [address] * (ABNORMAL) TROPONIN T, HIGH SENSITIVITY (03/19/2022 2:41 AM EST) Pathologist [facility] Troponin T, High Sensitivity 26(H) <=14 ng/L 03/19/2022 3:07 AM EST LABORATORY [facility] Blood Venous blood specimen / Unknown Venipuncture / Unknown 03/19/2022 2:41 AM EST 03/19/2022 2:44 AM EST Lloyd Lakhani DO LAB BLOOD ORDERABLE S LABORATORY [address] [address] * XR CHEST 2 VIEWS (03/19/2022 1:18 AM EST) Anatomical Region Laterality Modality Chest Digital Radiogra phy 03/19/2022 3:31 AM EST Impressions 03/19/2022 4:00 AM EST IMPRESSION No acute cardiopulmonary findings. I have personally reviewed this examination and agree with the resident/fellow physician's interpretation. Narrative 03/19/2022 4:00 AM EST EXAM XR CHEST 2 VIEWS-03/19/2022 1:18 am HISTORY chest pain COMPARISON Radiograph dated 06/30/2021. TECHNIQUE Frontal and lateral views of the chest. FINDINGS Lines/Tubes: None. Lungs/Pleura: No consolidative opacities, significant edema, or pleural effusions. No discernible pneumothorax. Heart/Mediastinum: Stable cardiomediastinal silhouette. Aortic valve replacement. Bones/Soft Tissues: No acute osseous finding. Sternotomy wires. Upper Abdomen: Cholecystectomy clips. Procedure Note Arnav Gerber MD - 03/19/2022 EXAM XR CHEST 2 VIEWS-03/19/2022 1:18 am HISTORY chest pain COMPARISON Radiograph dated 06/30/2021. TECHNIQUE Frontal and lateral views of the chest. FINDINGS Lines/Tubes: None. Lungs/Pleura: No consolidative opacities, significant edema, or pleuraleffusions. No discernible pneumothorax. Heart/Mediastinum: Stable cardiomediastinal silhouette. Aortic valvereplacement. Bones/Soft Tissues: No acute osseous finding. Sternotomy wires. Upper Abdomen: Cholecystectomy clips. IMPRESSION IMPRESSION No acute cardiopulmonary findings. I have personally reviewed this examination and agree with the resident/fellow physician's interpretation. [facility] RADIOLOGY (RAD GENE RAL) * (ABNORMAL) D-DIMER (03/19/2022 1:00 AM EST) D-Dimer 0.84(H) <0.50 ug/mL FEU 03/19/2022 2:40 AM EST LABORATORY [facility] Blood Venous blood specimen / Unknown Venipuncture / Unknown 03/19/2022 1:00 AM EST 03/19/2022 1:04 AM EST Narrative LABORATORY [facility] - 03/19/2022 2:40 AM EST Rheumatoid factor at a level above 50 IU/mL may lead to an overestimation of the D-dimer level. A normal D-dimer result (<0.50 ug/mL FEU) has a negative predictive value of approximately 95% for the exclusion of acute pulmonary embolism (PE) or deep vein thrombosis when there is low or moderate pretest PE probability. Increased D-dimer values are abnormal but do not indicate a specific disease state and the D-dimer increase does not definitively correlate with clinical severity of disease. Lloyd Ananda Lakhani LAB BLOOD ORDERABLE S LABORATORY [facility] [address], [place] [id number] * DIFFERENTIAL, AUTOMATED (03/19/2022 1:00 AM EST) WBC 7.06 4.00 - 10.80 K/uL 03/19/2022 1:08 AM EST LABORATORY [facility] Neutrophils % 65.7 40.0 - 75.0 % 03/19/2022 1:08 AM EST LABORATORY [facility] Lymphocytes % 22.7 18.0 - 42.0 % 03/19/2022 1:08 AM EST LABORATORY [facility] Monocytes % 7.1 1.0 - 11.0 % 03/19/2022 1:08 AM EST LABORATORY [facility] Eosinophils % 3.7 0.0 - 6.0 % 03/19/2022 1:08 AM EST LABORATORY [facility] Basophils % 0.7 0.0 - 2.0 % 03/19/2022 1:08 AM EST LABORATORY [facility] Immature Granulocytes % 0.1 0.0 - 2.0 % 03/19/2022 1:08 AM EST LABORATORY [facility] Absolute Neutrophils 4.64 1.80 - 7.70 K/uL 03/19/2022 1:08 AM EST LABORATORY [facility] Absolute Lymphocytes 1.60 1.00 - 4.80 K/ul 03/19/2022 1:08 AM EST LABORATORY [facility] Absolute Monocytes 0.50 0.00 - 1.10 K/uL 03/19/2022 1:08 AM EST LABORATORY [facility] Absolute Eosinophils 0.26 0.00 - 0.70 K/uL 03/19/2022 1:08 AM EST LAB[facility]ATORY [facility] Absolute Basophils 0.05 0.00 - 0.20 K/uL 03/19/2022 1:08 AM EST LABORATORY [facility] Absolute Immature Granulocytes 0.01 0.00 - 0.20 K/uL 03/19/2022 1:08 AM EST LABORATORY [facility] Blood Venous blood specimen / Unknown Venipuncture / Unknown 03/19/2022 1:00 AM EST 03/19/2022 1:04 AM EST Lloyd Lahkani LAB BLOOD ORDERABLE S LABORATORY [facility] [address] [place] [address] * (ABNORMAL) CBC (03/19/2022 1:00 AM EST) WBC 7.06 4.00 - 10.80 K/uL 03/19/2022 1:08 AM EST LABORATORY [facility] RBC 3.89 3.85 - 5.15 M/uL 03/19/2022 1:08 AM EST LABORATORY [facility] HGB 10.8(L) 12.0 - 15.3 g/dL 03/19/2022 1:08 AM EST LABORATORY GL HCT 35.0(L) 36.0 - 45.2 % 03/19/2022 1:08 AM EST LABORATORY [facility] MCV 90.0 81.5 - 97.5 fL 03/19/2022 1:08 AM EST LABORATORY GL MCH 27.8 27.0 - 34.0 pg 03/19/2022 1:08 AM EST LABORATORY [facility] MCHC 30.9 32.0 - 36.0 g/dL 03/19/2022 1:08 AM EST LABORATORY GL RDW 13.7 11.5 - 15.5 % 03/19/2022 1:08 AM EST LABORATORY GL PLT 220 140 - 400 K/uL 03/19/2022 1:08 AM EST LABORATORY [facility] MPV 10.1 6.6 - 11.1 fL 03/19/2022 1:08 AM EST LABORATORY [facility] nRBCs 0 <=0 /100 WBCs 03/19/2022 1:08 AM EST LABORATORY [facility] Blood Venous blood specimen / Unknown Venipuncture / Unknown 03/19/2022 1:00 AM EST 03/19/2022 1:04 AM EST [facility] S Performing Organization Address City/[facility]/ZIP Co de Phone Number LABORATORY [facility] [address] [place] [address] * (ABNORMAL) TROPONIN T, HIGH SENSITIVITY (03/19/2022 1:00 AM EST) Troponin T, High Sensitivity 27(H) <=14 ng/L 03/19/2022 1:23 AM EST LABORATORY [facility] Blood Venous blood specimen / Unknown Venipuncture / Unknown 03/19/2022 1:00 AM EST 03/19/2022 1:04 AM EST [facility] ORDER[facility] S Performing Organization Address [facility]/[place] Co de Phone Number LABORATORY [facility] [address] [place] [address] * (ABNORMAL) COMPREHENSIVE METABOLIC PANEL (03/19/2022 1:00 AM EST) BUN 20 6 - 20 mg/dL 03/19/2022 1:25 AM EST LABORATORY [facility] Creatinine 1.4(H) 0.5 - 1.0 mg/dL 03/19/2022 1:25 AM EST LABORATORY [facility] Estimated Glomerular Filtration Rate 38(L) >=60 mL/min 03/19/2022 1:25 AM EST LABORATORY [facility] Comment:eGFR is calculated b ased on the CKD-EPI 2020 equation Sodium 139 135 - 146 mmol/L 03/19/2022 1:25 AM EST LABORATORY [facility] Potassium 3.9 3.5 - 5.1 mmol/L 03/19/2022 1:25 AM EST LABORATORY [facility] Chloride 105 98 - 107 mmol/L 03/19/2022 1:25 AM EST LABORATORY [facility] CO2 24 22 - 32 mmol/L 03/19/2022 1:25 AM EST LAB[facility]ATORY [facility] Anion Gap 10 7 - 15 mmol/L 03/19/2022 1:25 AM EST LABORATORY [facility] Glucose 192(H) 70 - 120 mg/dL 03/19/2022 1:25 AM EST LABORATORY [facility] Albumin 4.3 3.8 - 5.0 g/dL 03/19/2022 1:25 AM EST LABORATORY [facility] AST 15 10 - 35 U/L 03/19/2022 1:25 AM EST LAB[facility]ATORY [facility] Alkaline Phosphatase 99 35 - 130 U/L 03/19/2022 1:25 AM EST LAB[facility]ATORY [facility] Bilirubin, Total 0.3 <=1.2 mg/dL 03/19/2022 1:25 AM EST LAB[facility]ATORY [facility] Calcium 10.1 8.4 - 10.2 mg/dL 03/19/2022 1:25 AM EST LAB[facility]ATORY [facility] Protein 7.3 6.0 - 8.3 g/dL 03/19/2022 1:25 AM EST LAB[facility]ATORY [facility] ALT 11 10 - 35 U/L 03/19/2022 1:25 AM EST LAB[facility]ATORY [facility] Blood Venous blood specimen / Unknown Venipuncture / Unknown 03/19/2022 1:00 AM EST 03/19/2022 1:04 AM EST [facility] LAB B[facility] ORDERABLE S Performing Organization Address [facility] de Phone Number LABORATORY [address] [address] * EXTRA LIGHT BLUE TOP (03/19/2022 1:00 AM EST) Blood Venous blood specimen / Unknown Venipuncture / Unknown 03/19/2022 1:00 AM EST 03/19/2022 1:04 AM EST Lloyd [facility] LAB BLOOD ORDERABLE S Performing Organization Address [facility] Co de Phone Number LABORATORY [address] [address] * EKG (03/19/2022 12:53 AM EST) 03/19/2022 12:5 3 AM EST Procedure Note Theo Noble DO - 03/19/2022 12:53 AM EST REASON FOR STUDY: CP CONCLUSIONS: Sinus rhythm with marked sinus arrhythmia Left bundle branch block Abnormal ECG When compared with ECG of 04-JUN-2021 06:46, No significant change Ventricular Rate: 72 Atrial Rate: 72 WV Interval: 170 QRS Duration: 156 QT/QTc: 422/462 ms P-R-T [place]: 60 : -9 : 147 degrees Lloyd Lakhani EKG [facility] documented in this encounter Visit Diagnoses Diagnosis Acute chest pain- Primary Chest pain, unspecified Chest pain Chest pain, unspecified Chest pain, unspecified type 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 Acetaminophen (Tylenol) tab 975 mg 975 mg, Oral, ONCE, On 03/19/22 at 0245, For 1 dose, Maximum of 4 grams (4000 mg) per day. Given 03/19/2022 2:42 AM EST 975 mg ALPRAZolam (xaNAX) tab 0.25 mg 0.25 mg, Oral, BID PRN Anxiety, Starting on 03/19/22 at 0424, Until 03/20/22 at 1835 aspirin chew tab 81 mg 81 mg, Oral, Daily(AM), First dose on 03/19/22 at 0900, Until Discontinued Given 03/20/2022 11:54 AM EST 81 mg documented in this encounter Active and Recently Administered Medications Times are shown in EST. Scheduled Medication Order 03/18/2022 03/19/2022 03/20/2022 Acetaminophen (Tylenol) tab 975 mg (COMPLETED) 975 mg, Oral, ONCE, On 03/19/22 at 0245, For 1 dose, Maximum of 4 grams (4000 mg) per day. 0242 (Given - Provider: Marie Nevarez RN) aspirin chew tab 81 mg 81 mg, Oral, Daily(AM), First dose on 03/19/22 at 0900, Until Discontinued 817 (Given - Provider: Karen Mendez RN) 115 (Given - Provider: Renee Almonte RN) atorvaSTATin (Lipitor) tab 80 mg 80 mg, Oral, HS, First dose on 03/19/22 at 2200, Until Discontinued 2113 (Given - Provider: Erica Campos, RN) busPIRone (Buspar) tab 10 mg 10 mg, Oral, TID(AM/NOON/HS), First dose on 03/19/22 at 0600, Until Discontinued 543 (Given - Provider: Radha Cleary RN)120 (Given - Provider: Karen Mendez RN)2113 (Given - Provider: Erica Campos, CARIDAD) 521 (Given - Provider: Erica Campos, CARIDAD)115 (Given - Provider: Renee Almonte RN) Enoxaparin (Lovenox) inj 40 mg 40 mg, Subcutaneous, [id number], First dose on Sun03/20/22 at 1000, Until Discontinued, If patient is on warfarin, inform provider if daily INR value is 2 or greater! 115 (Given - Provid er: Renee Almonte RN) escitalopram (Lexapro) tab 10 mg 10 mg, Oral, Daily(AM), First dose on 03/19/22 at 0900, Until Discontinued 818 (Given - Provider: Karen Mednez RN) 115 (Given - Provider: Renee Almonte RN) Furosemide (Lasix) tab 20 mg 20 mg, Oral, Daily(AM), First dose on 03/19/22 at 0900, Until Discontinued 818 (Given - Provider: Karen Mendez RN) 115 (Given - Provider: Renee Almonte RN) Gabapentin (Neurontin) cap 300 mg 300 mg, Oral, HS, First dose on 03/19/22 at 2200, Until Discontinued 2113 (Given - Provider: Erica Campos RN) insulin aspart (NovoLOG) inj Subcutaneous, W/MEALS AND HS, First dose on 03/19/22 at 0800, Until Discontinued, MEDIUM DOSE (Usual starting dose): Sliding Scale Correctional insulin may be given if the patient is NPO. Dose based on standard build from Insulin Calculator. Do not modify insulin doses in administration instructions! , Glucose less than 70 instructions: Obtain STAT lab blood glucose and call covering provider., Glucose 80-150 (units): 0, Glucose 151-200 (units): 2, Glucose 201-250 (units): 4, Glucose 251-300 (units): 6, Glucose greater than 300 (units): 8, Glucose greater than 300 instructions: Give suggested insulin dose and call covering provider. 0800 (No Insulin - Provider: Karen Mendez RN - Reason: Parameter(s) Not Met)1200 (No Insulin - Provider: Karen Mendez RN - Reason: Parameter(s) Not Met)1700 (No Insulin - Provider: Karen Mendez RN - Reason: Parameter(s) Not Met)2200 (No Insulin - Provider: Erica Campos RN - Reason: Parameter(s) Not Met) 0800 (No Insulin - Provider: Renee Almonte RN - Reason: Parameter(s) Not Met)1200 (No Insulin - Provider: Renee Almonte RN - Reason: Parameter(s) Not Met) Ioversol (Optiray 350) 74 % inj 100 mL (COMPLETED) 100 mL, Intravenous, ONCE, On 03/19/22 at 0400, For 1 dose, Radiology Medication Routing (Non-IR) 0400 (Given - Provider: Alexis Pratt, RT (R)) Lisinopril (Prinivil) tab 20 mg 20 mg, Oral, QHS, First dose on 03/19/22 at 2200, Until Discontinued 2113 (Given - Provider: Erica Campos RN) Metoprolol Tartrate (Lopressor) tab 12.5 mg (CANCELED) 12.5 mg, Oral, BID(AM/PM), First dose on 03/19/22 at 0900, Until Discontinued, Hold for HR less than 60 or SBP below 100 and notify service if dose is held 817 (Given - Provider: Karen Mendez RN)2113 (Given - Provider: Erica Campos RN) Metoprolol Tartrate (Lopressor) tab 12.5 mg 12.5 mg, Oral, BID(AM/PM), First dose (after last modification) on Sun03/20/22 at 0900, Until Discontinued, Hold for HR less than 60 or SBP below 100 and notify service if dose is held 1154 (Given - Provid er: Renee Almonte, CARIDAD) NSS 0.9% 1,000 mL bolus infusion (COMPLETED) Peripheral IV, Administer entire volume within 60 minutes or less., ONCE, 1 dose, On Sun03/19/22 at 0345 0314 (New Bag - Provider: Marie Nevarez RN) omeprazole (PriLOSEC) cap 20 mg 20 mg, Oral, BEFORE BREAKFAST, First dose on Sun03/19/22 at 0745, Until Discontinued, This med should NOT be Crushed or Chewed 0819 (Given - Provider: Karen Mendez RN) 1154 (Given - Provider: Renee Almonte, CARIDAD) oxygen GAS Inhalation, OXYGEN, First dose on Sun03/19/22 at 0800, Until Discontinued, Device/Managed by: Low Flow Device, Goal SPO2 (%): 91-95, Starting Device: Nasal Cannula, Inital Flow Rate (LPM): 2, Lowest Support: Nasal Cannula: Flow 0-6 LPM. Titrate up/down by 1 LPM., Titration Interval: Q2 minutes and as needed., Notify Provider: For sudden DECREASE in resting SPO2 to less than 85% and when escalating delivery device. 0800 (Oxygen Off - Provider: Karen Mendez RN)1600 (Oxygen Off - Provider: Karen Mendez RN) 0000 (Oxygen Off - Provider: Erica Campos, CARIDAD)0800 (Oxygen Off - Provider: Renee Almonte, CARIDAD) Regadenoson (Lexiscan) inj 0.4 mg (COMPLETED) 0.4 mg, IV Push, ONCE, On Sun03/20/22 at 1000, For 1 dose, Inject over 10 seconds with 5-10 ml saline flush immediately after, [facility] (Given - Provid er: Marsha Campos RN) Technetium Tc 99m Sestamibi (Sestamibi) inj 10 millicurie (COMPLETED) 10 millicurie, Intravenous, ONCE, On Sun03/20/22 at 0900, For 1 dose, Radiology Medication Routing (Non-IR) 0900 (Given - Provid er: Jhon Mascorro, [facility]) Technetium Tc 99m Sestamibi (Sestamibi) inj 30 millicurie (COMPLETED) 30 millicurie, Intravenous, ONCE, On Sun03/20/22 at 0900, For 1 dose, Radiology Medication Routing (Non-IR) 0945 (Given - Provid er: Saad Barker, [facility]) PRN Medication Order 03/18/2022 03/19/2022 03/20/2022 Acetaminophen (Tylenol) tab 650 mg 650 mg, Oral, Q6H PRN Pain, Mild, Fever >38C(100.5F), Starting on 03/19/22 at 0421, Until Sun03/20/22 at 1835, Maximum of 4 grams (4000 mg) per day. Albuterol Sulfate (Proventil) (2.5 MG/3ML) 0.083% inhalation solution 2.5 mg 2.5 mg, Nebulizer, Q4H PRN Dyspnea, Starting on 03/19/22 at 0426, Until Sun03/20/22 at 1835 ALPRAZolam (xaNAX) tab 0.25 mg 0.25 mg, Oral, BID PRN Anxiety, Starting on 03/19/22 at 0424, Until Sun03/20/22 at 1835 dextrose 50 % inj 25 mL 25 mL, IV Push, PRN Hypoglycemia, Other, For blood glucose 54 - 69 mg/dL or 70 - 100 mg/dL with symptoms AND patient is unresponsive, NPO, OR unable to swallow, Starting on 03/19/22 at 0420, Until Sun03/20/22 at 1835, Administer IV. Recheck blood glucose after 15 minutes. Notify provider. dextrose 50 % inj 50 mL 50 mL, IV Push, PRN Hypoglycemia, Other, For blood glucose below 54 mg/dL AND patient unresponsive, NPO, OR unable to swallow, Starting on 03/19/22 at 0420, Until Sun03/20/22 at 1835, Administer IV. Recheck blood glucose in 15 minutes. Notify provider. glucagon (Glucagen) inj 1 mg 1 mg, Intramuscular, PRN Hypoglycemia, Other, If patient is unresponsive, or NPO and has no IV access, Starting on Sun03/19/22 at 0420, Until Sun03/20/22 at 183, NPO and no IV access with either [...] patient alert WITH difficulty chewing/swallowing, Starting on Sun03/19/22 at 0420, Until Sun03/20/22 at 183, Administer gel. Recheck blood glucose after 15 minutes. Notify provider. 37.5 gram tube = 15 grams glucose = 1 each Glucose (Glutose 15) 40 % gel 30 g of glucose 30 g of glucose, Oral, PRN Hypoglycemia (low sugar), Other, For blood glucose below 54 mg/dL AND patient alert WITH difficulty chewing/swallowing, Starting on Sun03/19/22 at 0420, Until Sun03/20/22 at 183, Administer gel. Recheck blood glucose after 15 minutes. Notify provider. 37.5 gram tube = 15 grams glucose = 1 each glucose chew tab 16 g 16 g, Oral, PRN Hypoglycemia, Other, For blood glucose 54 - 69 mg/dL or 70 - 100 mg/dL with symptoms and patient alert without difficulty chewing/swallowing., Starting on Sun03/19/22 at 0420, Until Sun03/20/22 at 183 house antacid (Mi-Acid II) oral susp 15 mL 15 mL, Oral, Q4H PRN Indigestion, Starting on 03/19/22 at 0421, Until Sun03/20/22 at 183, SHAKE WELL ondansetron (Zofran) inj 4 mg 4 mg, IV Push, Q6H PRN Nausea, Starting on Sun03/19/22 at 0421, Until Sun03/20/22 at 183 sodium chloride 0.9 % flush/inj 10 mL 10 mL, IV Push, ONCE PRN Other, For Nuclear Stress Only - To follow Lexiscan Administration, Starting on Sun03/20/22 at 0924, Until 03/20/22 at 1123, For 2 hours, 5-10 ml Saline Flush to Immediately Follow Lexiscan Injection, Cardiac Studies_[facility] 0944 (Given - Provid er: Marsha Campos RN) sodium chloride 0.9 % flush/inj 3 mL 3 mL, IV Push, PRN Other, Line Patency, Starting on 03/19/22 at 0420, Until 03/20/22 at 1835, Do not flush if lock, PICC, or central line not in place, IV infusing or unable to flush documented in this encounter Additional Health Concerns Infection Onset Date Last Indicated Resolved Time Respiratory Rule-Out 03/19/2022 03/19/2022 022 4:05 AM EST COVID-19 Rule-Out 03/19/2022 03/19/2022 03/19/2022 4:05 AM EST documented as of this encounter Advance Directives [...] patient have Health Care Power of Sand Sifter? No Code Status History Code Status Date [...] Advance Directives occurred with: Patient Care Teams Library Historian Relationship Specialty Start Date End Date Elías Jade MD [address] [address] PCP - General Family Medicine 06/01/21 documented as of this encounter
--- OUTSIDE RECORDS SUMMARY | 2022-12-17 03:26 | External Medical Summary ---
Author Name Unknown Address Unknown Organization K1F:LABORATORY [facility] - [address] [address] Laboratory Report Ordering Provider Test Date Status JULIO C FLAHERTY 03/19/2022 06:12:00 Final Observation Date Value Abnormality Reference (Units ) Status PT 03/19/2022 06:12:00 12.9 11.6-15.2 (seconds) Final INR 03/19/2022 06:12:00 1.0 0.8-1.2 Final Performing Location LABORATORY GL - [address] [address]
--- OUTSIDE RECORDS SUMMARY | 2022-12-17 03:26 | External Medical Summary ---
Author Name Unknown Address Unknown Organization : Laboratory Report Ordering Provider Test Date Status TIFFANY REVELES 03/19/2022 16:39:57 Final Observation Date Value Abnormality Reference (Units ) Status Glucose Point of Care 03/19/2022 16:39:57 114 70-120 (mg/dL) Final Performing Location
--- OUTSIDE RECORDS SUMMARY | 2022-12-17 03:26 | External Medical Summary | Summary of Care ---
Author Name Unknown Organization [facility] [place] [address] Care Team Providers Care Blind Escort Name Role Phone Elías Gilbert MD Primary Care Provider [phone] Reason for Visit * Reason Onset Date Comments Medication Refill 03/31/2022 Encounter Details Date Type Department Care Team Description 03/31/2022 Refill [facility] [address] [facility] [place] [address] Elías Gilbert MD [address] [place] [address] Stage 3a chronic kidney disease (HCC); HTN, goal below 140/90 Allergies Active Allergy Reactions Severity Noted Date Comments Eggs Or Egg-Derived Products Diarrhea 021 documented as of this encounter (statuses as of 03/31/2022) Medications Medication Sig Dispensed Refills Start Date [...] at bedtime. 7 Tablet 0 03/31/2022 Active Lisinopril 20 MG Oral Tablet (Prinivil)Indica tions:Stage 3a chronic kidney disease (HCC),HTN, goal below 140/90 Take by mouth 1 Tablet before bedtime. 90 Tablet 2 09/16/2021 03/31/2022 Discontinued (Refill) documented as of this encounter (statuses as of 03/31/2022) Active Problems Problem Noted Date Type 2 [...] as of this encounter (statuses as of 03/31/2022) Resolved Problems Problem Noted Date Resolved Date [...] as of this encounter (statuses as of 03/31/2022) Immunizations Name Administration Dates Next Due DTaP [...] encounter Miscellaneous Notes * Telephone Encounter - Evonne Hdz [facility] - 03/31/2022 10:09 AM ESTSigned Prescriptions: Disp Refills Lisinopril 20 MG Oral Tablet (Prinivil) 7 Tabl*0 Sig: Take 1 Tablet (20 mg) by mouth every night at bedtime. Authorizing Provider: ELÍAS GILBERT Ordering User: EVONNE HDZ * Telephone Encounter - YUAN Patten - 03/31/2022 9:40 AM EST Patient calling to request short supply for Lisinopril until mail order arrives. Please review and approve if appropriate. Pending Prescriptions: Disp Refills Lisinopril 20 MG Oral Tablet (Prinivil) 7 Tabl*0 Sig: Take 1 Tablet (20 mg) by mouth every night at bedtime. Last Visit: 03/24/2022 (in office), Visit date not found (telemedicine) 05/01/2022 Aria Sawant Lending Manager [facility] 03/31/2022 9:41 AM documented in this encounter Plan of Treatment Upcoming Encounters Date Type Specialty Care Team Description 05/01/2022 Office Visit Family Medicine Elías Gilbert MD [address] [address] 06/19/2022 Laboratory Laboratory Arias [place] [address] [address] 06/22/2022 Office Visit Family Medicine Teresa Hough CRNP [address] [address] Health Maintenance Due Date Last Done Comments [...] Over 10/21/2022 10/21/2021 CKD HGB USE SMARTSET 43091 03/19/202303/19, 03/19/2022, 03/19/2022, Additional history exists CKD PHOS USE SMARTSET 80357 03/19/2023 03/19/2022, 0 10/21/2021 DXA Scan 03/11/2026 [...] the patient have Health Care Power of Cooky Machine Operator? No Code Status History Code Status [...] Advance Directives occurred with: Patient Care Teams Blind Escort Relationship Specialty Start Date End Date Elías Gilbert MD [address] [address] PCP - General Family Medicine 06/01/21 documented as of this encounter
--- OUTSIDE RECORDS SUMMARY | 2022-12-17 03:26 | External Medical Summary ---
Author Name Unknown Address Unknown Organization K1F:LABORATORY [facility] - [address] [address] Laboratory Report Ordering Provider Test Date Status JULIO C FLAHERTY 03/19/2022 06:12:00 Final Observation Date Value Abnormality Reference (Units ) Status Magnesium 03/19/2022 06:12:00 2.0 1.5-2.6 (m g/dL) Final Performing Location LABORATORY [facility] - [address] [address]
--- OUTSIDE RECORDS SUMMARY | 2022-12-17 03:26 | External Medical Summary ---
Author Name Unknown Address Unknown Organization : Laboratory Report Ordering Provider Test Date Status TIFFANY RVEELES 03/19/2022 21:28:16 Final Observation Date Value Abnormality Reference (Units ) Status Glucose Point of Care 03/19/2022 21:28:16 138 Above high normal 70-120 (mg/dL) Final Performing Location
--- OUTSIDE RECORDS SUMMARY | 2022-12-17 03:26 | External Medical Summary ---
Author Name Unknown Address Unknown Organization : Laboratory Report Ordering Provider Test Date Status TIFFANY REVELES 03/19/2022 07:56:00 Final Observation Date Value Abnormality Reference (Units ) Status Glucose Point of Care 03/19/2022 07:56:00 123 Above high normal 70-120 (mg/dL) Final Performing Location
--- OUTSIDE RECORDS SUMMARY | 2022-12-17 03:27 | External Medical Summary | Summary of Care ---
Author Name Unknown Organization [facility] [place] [place] [address] Care Team Providers Care Glaze Supervisor Name Role Phone Elías Gilbert MD Primary Care Provider [phone] Reason for Visit * Reason Comments eRx-Medication Refill Encounter Details Date Type Department Care Team Description 10/28/2021 Refill [facility] 21 [facility] [place] [address] Elías Gilbert MD 21 [place] [address] Dizziness Allergies Active Allergy Reactions Severity Noted Date Comments Eggs Or Egg-Derived Products Diarrhea 021 documented as of this encounter (statuses as of 10/31/2021) Medications Medication Sig Dispensed Refills Start Date End Date Status aspirin enteric coated 81 MG TBEC Take 1 Tab by mouth daily. 0 Active omeprazole (PRILOSEC) 20 MG CPDR Take 1 Cap by mouth daily. 0 Active B-12 1000 MCG Sublingual Tablet Sublingual PLACE 1,000 MCG UNDER THE TONGUE DAILY 30 Tab 11 07/09/2020 Active Additional Information Patient not taking. Reported on 10/21/2021 Escitalopram Oxalate 10 MG Oral Tablet (Lexapro)Indicat ions:ADRIANA (generalized anxiety disorder) Take 1 Tablet by mouth daily. 90 Tablet 1 03/07/2021 Active ProAir HFA 108 (90 Base) MCG/ACT Inhalation Aerosol SolutionIndicati ons:Bronchitis, complicated Inhale by mouth 2 Puffs every 4 hours as needed for Wheezing. 8 g 1 06/30/2021 Active Gabapentin 300 MG Oral Capsule (Neurontin) 1 Capsule before bedtime. 0 08/12/2021 Active Atorvastatin Calcium 80 MG Oral Tablet [...] FOR DIZZINESS 30 Tablet 1 10/31/2021 Active Meclizine HCl 25 MG Oral Tablet (Antivert)Indica tions:Dizziness Take by mouth 1 Tablet as needed in the morning AND 1 Tablet as needed at noon AND 1 Tablet as needed in the evening for Dizziness. 30 Tablet 0 10/21/2021 2 Discontinued documented as of this encounter (statuses as of 10/31/2021) Active Problems Problem Noted Date Left heart failure 04/01/2021 Acute chest pain 02/28/2021 Left bundle branch block (LBBB) 02/29/20 21 Uncontrolled hypertension 02/28/2021 MANDY (obstructive sleep apnea) 10/06/2020 Type 2 diabetes mellitus with stage 3a c hronic kidney disease 08/24/2020 Overview: Per CKD protocol Severe obesity with body mas s index (BMI) of 35.0 to 39.9 with serious comorbidity 07/16/2020 Stage 3a chronic kidney disease 02/23/20 20 Overview: Per CKD protocol - Per CKD protocol Type 2 diabetes mellitus with diabetic c [...] as of this encounter (statuses as of 10/31/2021) Resolved Problems Problem Noted Date Resolved Date Heart failure with acute decompensation, type un known 02/28/2021 03/07/2021 Other chest pain 10/06/2020 10/06/2020 Diabetes mellitus with stage 3 chronic kidney di sease 07/26/2020 08/26/2020 Overview: Per CKD protocol Type 2 diabetes mellitus wit h stage 3 chronic kidney disease, without long-term current use of insulin 07/16/2020 0408/2020 Overview: Per CKD protocol Kidney disease, chronic, stage III (GFR 30-59 ml /min) 11/24/2019 02/26/2020 Overview: Per CKD protocol COPD (chronic obstructive pu lmonary disease) with chronic bronchitis 05/27/2019 05/27/2019 documented as of this encounter (statuses as of 10/31/2021) Immunizations Name Administration Dates Next Due DTaP - Dipth/Tet/Acell Pertussis 03/09/2017 Pneumococcal Conjugate Vacc, 13 Valent (Prevnar) 05/27/2019,03/08/2015 Pneumococcal Polysaccharide PPV23 (Pneumovax) Seasonal Influenza Virus Vac cine, Unspecified Formulation 02/22/2016,03/08/2015 Seasonal Influenza, Trivalent, Adjuvanted, 65+ y rs 07/15/2019 TDAP (age 11 and older)(Adacel) 03/24/2009 documented as of this encounter Social History Tobacco Use Types Packs/Day Years Used Date Never Smoker Smokeless Tobacco: Never Used Alcohol Use Standard Drinks/Week Comments Never 0 [...] more drinks on one occasion? Not asked Comment: Not asked Physical Activity Answer Date Recorded [...] you have serious difficulty h earing? No 02/28/2021 Are you blind or do you have serious difficulty seeing, even when wearing glasses? No 02/28/2021 Do you have serious difficul ty walking or climbing stairs? (5 years old or older) Yes 02/28/2021 Do you have difficulty dress ing or bathing? (5 years old or older) No 02/28/2021 Because of a physical, menta l, or emotional condition, do you have difficulty doing errands alone such as visiting a doctor s office or shopping? (15 years old or older) No 02/29/20 21 Cognitive Status Response Date of Assessm ent Because of a physical, menta l, or emotional condition, do you have serious difficulty concentrating, remembering, or making decisions? (5 years old or older No 02/28/2021 documented as of this encounter Miscellaneous Notes * Telephone Encounter - Abdelrahman Lowe [facility] - 10/31/2021 8:57 AM EDT Signed Prescriptions: Disp Refills Meclizine HCl 25 MG Oral Tablet (Antivert) 30 Tab*1 Sig: TAKE 1 TABLET NEEDED IN THE MORNING AND 1 TABLET NEEDED AT NOON AND 1 TABLET NEEDED IN THE EVENING FOR DIZZINESS Authorizing Provider: ELÍAS GILBERT Ordering User: ABDELRAHMAN LOWE * Telephone Encounter - Abdelrahman Lowe [facility] - 10/31/2021 8:57 AM EDT Note added to script to refill only when needed as pt takes infrequently (per 10/21 appt). Refills sent to have on file when needed. Thanks, Abdelrahman Lowe, PharmD Clinical Pharmacist Telepharmacy [phone] 10/31/2021 8:57 AM documented in this encounter Plan of Treatment Upcoming Encounters Date Type Specialty Care Team Description 05/01/2022 Office Visit Family Medicine Elías Gilbert [facility] [address] [facility] [place] [address] Health Maintenance Due Date Last Done Comments COVID-19 Vaccine (#1) 1945 Zoster Vaccines (1 of 2) 1994 DIABETES-EYE EXAM 07/16/2021 07/16/2020, 06/30/2019 Influenza Vaccine (FLU shot) (#1) 2021 07/15/2019, 02/22/2016, 03/08/2015 DIABETES-URINE ALBUMIN/CREATININE EVERY 12 MONTHS 04/01/2022 04/01/2021, 07/16/2020, 06/06/2019 DIABETES-HGBA1C EVERY 6 MONTHS 04/23/2022 10/21/2021, 02/28/2021, 01/20/2021, Additional history exists GFR - Renal Function 04/23/2022 10/21/2021, 06/04/2021, 05/26/2021, Additional history exists CKD HGB USE SMARTSET 51379 06/04/202206/04, 06/04/2021, 05/26/2021, Additional history exists CKD PHOS USE SMARTSET 54352 10/21/2022 10/21/2021 DIABETES-FOOT EXAM 10/21/2022 10/21/2021, 0 07/16/2020, 07/15/2019 Depression Screening, Annual for Pts 12 and Over 10/21/2022 10/21/2021 Dexa Scan 03/11/2026 03/11/2019 DTaP,Tdap,and Td Vaccines (3 - Td or Tdap) 03/09/2027 03/09/2017, 03/24/2009 Pneumococcal Vaccine: 65+ Years Completed 05/27/2019, 03/08/2015, 06/30/2014 GARDASIL-HPV IMMUNIZATION SERIES Aged Out No longer eligible based on patient's age to complete this topic MENINGOCOCCAL (MENACTRA/MENVEO) Aged Out No longer eligible based on patient's age to complete this topic documented as of this encounter Implants Not on filedocumented as of this encounter Visit Diagnoses Diagnosis Dizziness Dizziness and giddiness documented in this encounter Advance Directives Documents on File Type Date Recorded Patient Attending Physician 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 Advanced Directive Advanced Directive Advanced Directive Advanced Directive Advanced Directive Advanced Directive Advanced Directive Advanced Directive Advanced Directive Advanced Directive Advanced Directive Advanced Directive Advanced Directive Advanced Directive Advanced Directive Advanced Directive Advanced Directive Advanced Directive Advanced Directive Advanced Directive Advanced Directive Advanced Directive Advanced Directive Advanced Directive Advanced Directive Advanced Directive Advanced Directive Advanced Directive Advanced Directive Advanced Directive Advanced Directive Advanced Directive Advanced Directive Advanced Directive Advanced Directive Advanced Directive Advanced Directive 02/28/2021 7:30 AM Advanced Directive 10/06/2020 12:41 PM Latest Code Status on File Code Status Date Activated Date Inactivated Comments Full Code 02/28/2021 8:35 AM 03/01/2021 8:18 PM Thi s order reflects the patients wishes and were consensually agreed upon. Discussion of Advance Directives occurred with: Patient Full Code 10/06/2020 12:41 AM 10/06/2020 9:21 PM This order reflects the patients wishes and were consensually agreed upon. Discussion of Advance Directives occurred with: Patient Care Teams Glaze Supervisor Relationship Specialty Start Date End Date Elías Gilbert MD [place] [address] PCP - General Family Medicine 06/01/21 documented as of this encounter
--- OUTSIDE RECORDS SUMMARY | 2022-12-17 03:27 | External Medical Summary ---
Author Name Unknown Address Unknown Organization K1F:[facility] - [place] [address] Laboratory Report Ordering Provider Test Date Status JAIME DESAI 03/19/2022 01:00:21 Final Observation Date Value Abnormality Reference (Units ) Status Fibrin D-dimer FEU [Mass/volume] in Platelet poor plasma by Immunoassay 03/19/2022 01:00:21 0.84 Above high normal <0.50 (ug/mL FEU) Final Performing Location [facility] - [address] [place] [address]
--- OUTSIDE RECORDS SUMMARY | 2022-12-17 03:27 | External Medical Summary ---
Author Name Unknown Address Unknown Organization K1F:[facility] - [address] [place] [address] [place] [address] Laboratory Report Ordering Provider Test Date Status JAIME DESAI 03/19/2022 03:13:31 Final Observation Date Value Abnormality Reference (Units ) Status Adenovirus DNA [Presence] in Nasopharynx by ROBBI with non-probe detection 03/19/2022 03:13:31 Negative Negative Final Human coronavirus 229E RNA [Presence] in Nasopharynx by ROBBI with non-probe detection 03/19/2022 03:13:31 Negative Negative Final Human coronavirus HKU1 RNA [Presence] in Nasopharynx by ROBBI with non-probe detection 03/19/2022 03:13:31 Negative Negative Final Human coronavirus NL63 RNA [Presence] in Nasopharynx by ROBBI with non-probe detection 03/19/2022 03:13:31 Negative Negative Final Human coronavirus OC43 RNA [Presence] in Nasopharynx by ROBBI with non-probe detection 03/19/2022 03:13:31 Negative Negative Final SARS-CoV-2 (COVID-19) RNA [Presence] in Nasopharynx by ROBBI with non-probe detection 03/19/2022 03:13:31 Negative Negative Final Human metapneumovirus RNA [Presence] in Nasopharynx by ROBBI with non-probe detection 03/19/2022 03:13:31 Negative Negative Final Rhinovirus+Enterovirus RNA [Presence] in Nasopharynx by ROBBI with non-probe detection 03/19/2022 03:13:31 Negative Negative Final Influenza virus A RNA [Presence] in Nasopharynx by ROBBI with non-probe detection 03/19/2022 03:13:31 Negative Negative Final Influenza virus B RNA [Presence] in Nasopharynx by ROBBI with non-probe detection 03/19/2022 03:13:31 Negative Negative Final Parainfluenza virus 1 RNA [Presence] in Nasopharynx by ROBBI with non-probe detection 03/19/2022 03:13:31 Negative Negative Final Parainfluenza virus 2 RNA [Presence] in Nasopharynx by ROBBI with non-probe detection 03/19/2022 03:13:31 Negative Negative Final Parainfluenza virus 3 RNA [Presence] in Nasopharynx by ROBBI with non-probe detection 03/19/2022 03:13:31 Negative Negative Final Parainfluenza virus 4 RNA [Presence] in Nasopharynx by ROBBI with non-probe detection 03/19/2022 03:13:31 Negative Negative Final Respiratory syncytial virus RNA [Presence] in Nasopharynx by ROBBI with non-probe detection 03/19/2022 03:13:31 Negative Negative Final Bordetella pertussis.pertussis toxin promoter region [Presence] in Nasopharynx by ROBIB with non-probe detection 03/19/2022 03:13:31 Negative Negative Final Chlamydophila pneumoniae DNA [Presence] in Nasopharynx by ROBBI with non-probe detection 03/19/2022 03:13:31 Negative Negative Final Mycoplasma pneumoniae DNA [Presence] in Nasopharynx by ROBBI with non-probe detection 03/19/2022 03:13:31 Negative Negative Final Bordetella parapertussis [id number] DNA [Presence] in Nasopharynx by ROBBI with non-probe detection 03/19/2022 03:13:31 Negative Negative Final Performing Location [facility] - [address] [place], [place] [address] [address]
--- OUTSIDE RECORDS SUMMARY | 2022-12-17 03:27 | External Medical Summary | Summary of Care ---
Author Name Unknown Organization [facility] [place] [address] Care Team Providers Care Machine Featheredger And Reducer Name Role Phone Elías Jade MD Primary Care Provider [phone] Reason for Visit * Reason Onset Date Comments Med Request 01/11/202201/11 Encounter Details Date Type Department Care Team Description 01/11/2022 Telephone [facility] 21 [facility] [place] [address] Elías Jade MD 21 [place] [address] Med Request (01/11) Allergies Active Allergy Reactions Severity Noted Date Comments Eggs Or Egg-Derived Products Diarrhea 021 documented as of this encounter (statuses as of 01/11/2022) Medications Medication Sig Dispensed Refills Start Date [...] 10/21/2021 Escitalopram Oxalate 10 MG Oral Tablet (Lexapro)Indication s:ADRIANA (generalized anxiety disorder) Take 1 Tablet by mouth daily. 90 Tablet 1 03/07/2021 Active ProAir HFA 108 (90 Base) MCG/ACT Inhalation Aerosol SolutionIndications :Bronchitis, complicated Inhale by mouth 2 Puffs every 4 hours as needed for Wheezing. 8 g 1 06/30/2021 Active Gabapentin 300 MG Oral Capsule (Neurontin) 1 Capsule before bedtime. 0 08/12/2021 Active Atorvastatin Calcium 80 MG Oral Tablet (Lipitor)Indication s:Dyslipidemia, goal LDL below 100 Take by mouth 1 Tablet before bedtime. 90 Tablet 1 09/16/2021 Active Lisinopril 20 MG Oral Tablet (Prinivil)Indicatio [...] as of this encounter (statuses as of 01/11/2022) Active Problems Problem Noted Date Type 2 [...] as of this encounter (statuses as of 01/11/2022) Resolved Problems Problem Noted Date Resolved Date [...] as of this encounter (statuses as of 01/11/2022) Immunizations Name Administration Dates Next Due DTaP [...] Telephone Encounter - Elías Jade MD - 01/11/2022 7:30 PM EDT rx sent. If not improving by Sunday, needs to be seen. Elías Jade MD, PAULA Family Physician João Kingston * Telephone Encounter - YUAN Stallings - 01/11/2022 12:36 PM EDT Pt calling with complaints of Cough with mucous and is requesting a medication be prescribed. Pt did not want to schedule an appointment at this time. Pt is asking for Benzonatate to be called in if appropriate Tyrell Caballero t [facility] 01/11/2022,12:36 PM documented in this encounter Plan of Treatment Upcoming Encounters Date Type Specialty Care Team Description 05/01/2022 Office Visit Family Medicine Elías Jade MD [address] [place] [id number] Health Maintenance Due Date Last Done Comments [...] Additional history exists CKD HGB USE SMARTSET 12732 06/04/202206/04, 06/04/2021, 05/26/2021, Additional history exists DIABETES-EYE EXAM 10/18/2022 10/18/2021, , 06/30/2019 CKD PHOS USE SMARTSET 62929 10/21/2022 10/21/2021 DIABETES-FOOT EXAM 10/21/2022 10/21/2021, 0 07/16/2020, 07/15/2019 Depression Screening, Annual for Pts 12 and Over 10/21/2022 10/21/2021 DXA Scan 03/11/2026 03/11/2019 DTaP,Tdap,and Td [...] filedocumented as of this encounter Advance Directives Documents on File Type Date Recorded Patient Life Skills Specialist 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 Advance Directives occurred with: Patient Care Teams Machine Featheredger And Reducer Relationship Specialty Start Date End Date Elías Jade MD [address] [place] [address] PCP - General Family Medicine 06/01/21 documented as of this encounter
--- OUTSIDE RECORDS SUMMARY | 2022-12-17 03:27 | External Medical Summary | Summary of Care ---
Author Name Unknown Organization [facility] [place] [address] Care Team Providers Care Early Childhood Services Coordinator Name Role Phone Elías Jade MD Primary Care Provider [phone] Reason for Visit * Reason Comments Follow Up Encounter Details Date Type Department Care Team Description 10/21/2021 Office Visit [facility] [place] [address] Elías Jade MD [address] [facility] [place] [address] Leg cramping*; Dizziness; Left heart failure (HCC); Type 2 diabetes mellitus with hemoglobin A1c goal of less than 7.0% ([facility]); DM type 2 nursing care encounter (HCC); Type 2 diabetes mellitus with stage 3a chronic kidney disease, without long-term current use of insulin ([facility]); Severe obesity with body mass index (BMI) of 35.0 to 39.9 with serious comorbidity (HCC); Secondary hyperparathyroidism, non-renal (HCC) Allergies Active Allergy Reactions Severity Noted Date Comments Eggs Or Egg-Derived Products Diarrhea 021 documented as of this encounter (statuses as of 10/21/2021) Medications Medication Sig Dispensed Refills Start Date [...] 10/21/2021 Escitalopram Oxalate 10 MG Oral Tablet (Lexapro)Indicatio ns:ADRIANA (generalized anxiety disorder) Take 1 Tablet by mouth daily. 90 Tablet 1 03/07/2021 Active ProAir HFA 108 (90 Base) MCG/ACT Inhalation Aerosol SolutionIndication s:Bronchitis, complicated Inhale by mouth 2 Puffs every [...] FOR ANXIETY 270 Tablet 3 09/15/2021 Active Meclizine HCl 25 MG Oral Tablet (Antivert)Indicati ons:Dizziness Take by mouth 1 Tablet as needed in the morning AND 1 Tablet as needed at noon AND 1 Tablet as needed in the evening for Dizziness. 30 Tablet 0 10/21/2021 Active Furosemide 20 MG Oral Tablet (Lasix)Indications :Left heart failure (HCC) Take by mouth 1 Tablet in the morning. 90 Tablet 3 10/21/2021 Active Zoster Vac Recomb Adjuvanted 50 MCG/0.5ML Intramuscular Suspension Reconstituted (Shingrix)Indicati ons:Need for vaccination for zoster Inject 0.5 mL into a large muscle now and repeat dose in 60 to 180 days 1 Each 1 07/16/2020 2 Discontinue d(Medicatio n List Clean Up) Meclizine HCl 25 MG Oral Tablet (Antivert) Take 1 Tablet by mouth 3 times a day as needed for Dizziness. 30 Tablet 0 04/13/2021 2 Discontinue d(Refill) predniSONE 10 MG Oral Tablet (Deltasone)Indicat ions:Bronchitis, complicated Take 4 tabs for 2 days, 3 tabs for 2 days, 2 tabs for 2 days 1 tab for 2 days 20 Tablet 0 06/30/2021 2 Discontinue d(Medicatio n List Clean Up) Benzonatate 100 MG Oral Capsule (Tessalon Perles)Indications :Bronchitis, complicated Take by mouth 1 Capsule as needed in the morning AND 1 Capsule as needed at noon AND 1 Capsule as needed in the evening for Cough. Do not cut, crush, or chew.. 50 Capsule 1 06/30/2021 2 Discontinue d(Medicatio n List Clean Up) Furosemide 20 MG Oral Tablet (Lasix)Indications :Left heart failure (HCC) Take by mouth 1 Tablet in the morning. 90 Tablet 1 09/18/2021 2 Discontinue d(Refill) documented as of this encounter (statuses as of 10/21/2021) Active Problems Problem Noted Date Left heart [...] as of this encounter (statuses as of 10/21/2021) Resolved Problems Problem Noted Date Resolved Date Heart failure with acute decompensation, type un known 02/28/2021 03/07/2021 Other chest pain 10/06/2020 10/06/2020 Diabetes mellitus with stage 3 chronic kidney di sease 07/26/2020 08/26/2020 Overview: Per CKD protocol Type 2 diabetes mellitus wit h stage 3 chronic kidney disease, without long-term current use of insulin 07/16/202007/15 Overview: Per CKD protocol Kidney disease, chronic, stage III (GFR 30-59 ml /min) 11/24/2019 02/26/2020 Overview: Per CKD protocol COPD (chronic obstructive pu lmonary disease) with chronic bronchitis 05/27/2019 05/27/2019 documented as of this encounter (statuses as of 10/21/2021) Immunizations Name Administration Dates Next Due DTaP [...] Sign Reading Time Taken Comments Blood Pressure 134/74 10/21/2021 9:05 AM EDT Pulse 60 10/21/2021 9:05 AM EDT Temperature 36.3 C (97.3 F) 10/21/2021 9:05 AM ED T Respiratory Rate 16 10/21/2021 9:05 AM EDT Oxygen Saturation 98% 10/21/2021 9:05 AM EDT Inhaled Oxygen Concentration - - Weight 100.2 kg (220 lb 12.8 oz) 10/21/2021 9:05 AM EDT Height 167.6 cm (5' 6") 10/21/2021 9:05 AM EDT Body Mass Index 35.64 10/21/2021 9:05 AM EDT documented in this encounter Functional [...] No 02/28/2021 documented as of this encounter Patient Instructions * Patient Instructions* Samia Gregory ChristineGRACE RADHA - 10/21/2021 9:08 AM EDT Diabetes: Keeping Feet Healthy Inspect your feet every day for signs of a problem. Diabetes can damage nerves in your feet and cause neuropathy. This condition makes it hard for you to feel injuries or sore spots. Diabetes can also change blood flow, making it harder for small problems, like a blister, to heal properly. In fact, minor injuries can quickly become serious infections that send you to the hospital. Practice self-care to protect your feet and keep them healthy. Take Special Care Inspect your feet daily for problems such as redness, blisters, cracks, dry skin, or numbness. Use a mirror to see the bottoms of your feet. Or, ask for help. Manage your diabetes. Monitor and control your blood sugar. Take all your medications as prescribed. Avoid walking barefoot, even indoors. Wash your feet with warm water and mild soap. Dry well, especially between toes. Dont treat corns or calluses yourself. Talk to your doctor or urology nurse (a doctor who specializes in foot care) if you need assistance trimming your toenails. Use moisturizing cream or lotion if you have dry skin, but dont use it between toes. Dont use heating pads on your feet. If you have neuropathy, you could get a burn and not feel it. Stop smoking. Smoking restricts blood flow and can make it harder for wounds to heal. Have Regular Checkups Foot problems can develop quickly. So be sure to follow your healthcare teams schedule for regular checkups. During office visits, take off your shoes and socks as soon as you get in the exam room. Ask your healthcare provider to examine your feet for problems. This will make it easier to find and treat small skin irritations before they get worse. Regular checkups can also help keep track of the blood flow and feeling in your feet. If you have neuropathy, you may need to have checkups more often. Wear Proper Footwear Wearing proper footwear is very important. If areas of your feet have been damaged by too much pressure, your healthcare provider may recommend changing your footwear. In some cases, avoiding high heels or tight work boots may be all thats needed. Or, your healthcare provider may recommend special shoes or custom inserts. These help protect your feet and keep existing irritations from getting worse. If you need special footwear, ask your healthcare provider if you qualify for [employer] diabetic shoe program. Make Sure Shoes and Socks Fit Any pair of shoesnew or oldshould feel comfortable as soon as you put them on. There shouldnt be any rubbing when you walk. Wear the right shoe for any activity. For instance, a running shoeis designed to keep your feet injury-free while jogging. Buy shoes at the end of the day, when yourfeet are larger. Make sure they provide support without feeling too loose. Make sure your socks fit, too. Wear soft, seamless, well-padded socks for activity. Cotton or microfiber socks are best to help to absorb sweat. To protect your feet, avoid shoes that are open-toed or open-heeled. If you have questions about what kinds of shoes and socks are best, talk to your healthcare team. Get Regular Exercise Regular exercise improves blood flow in your feet. It also increases foot strength and flexibility.Gentle exercises, like walking or riding a stationary bicycle, are best. You can also do special foot exercises. Just be sure to talk with your healthcare provider before starting any exercise program. Also mention if any exercise causes pain, redness, or other signs of foot problems. Note: If you have any kind of break in the skin of your foot or ankle, keep the area clean. Then call your doctorespecially if the area doesnt appear to be healing. [phone] [employer], [address] [place] [address], [place] [address]. All rights reserved. This information is not intended as a substitute for professional medical care. Always follow your healthcare professional's instructions. Diabetes: Keeping Feet Healthy Inspect your feet every day for signs of a problem. Diabetes can damage nerves in your feet and cause neuropathy. This condition makes it hard for you to feel injuries or sore spots. Diabetes can also change blood flow, making it harder for small problems, like a blister, to heal properly. In fact, minor injuries can quickly become serious infections that send you to the hospital. Practice self-care to protect your feet and keep them healthy. Take Special Care Inspect your feet daily for problems such as redness, blisters, cracks, dry skin, or numbness. Use a mirror to see the bottoms of your feet. Or, ask for help. Manage your diabetes. Monitor and control your blood sugar. Take all your medications as prescribed. Avoid walking barefoot, even indoors. Wash your feet with warm water and mild soap. Dry well, especially between toes. Dont treat corns or calluses yourself. Talk to your doctor or urology nurse (a doctor who specializes in foot care) if you need assistance trimming your toenails. Use moisturizing cream or lotion if you have dry skin, but dont use it between toes. Dont use heating pads on your feet. If you have neuropathy, you could get a burn and not feel it. Stop smoking. Smoking restricts blood flow and can make it harder for wounds to heal. Have Regular Checkups Foot problems can develop quickly. So be sure to follow your healthcare teams schedule for regular checkups. During office visits, take off your shoes and socks as soon as you get in the exam room. Ask your healthcare provider to examine your feet for problems. This will make it easier to find and treat small skin irritations before they get worse. Regular checkups can also help keep track of the blood flow and feeling in your feet. If you have neuropathy, you may need to have checkups more often. Wear Proper Footwear Wearing proper footwear is very important. If areas of your feet have been damaged by too much pressure, your healthcare provider may recommend changing your footwear. In some cases, avoiding high heels or tight work boots may be all thats needed. Or, your healthcare provider may recommend special shoes or custom inserts. These help protect your feet and keep existing irritations from getting worse. If you need special footwear, ask your healthcare provider if you qualify for [employer] diabetic shoe program. Make Sure Shoes and Socks Fit Any pair of shoesnew or oldshould feel comfortable as soon as you put them on. There shouldnt be any rubbing when you walk. Wear the right shoe for any activity. For instance, a running shoeis designed to keep your feet injury-free while jogging. Buy shoes at the end of the day, when yourfeet are larger. Make sure they provide support without feeling too loose. Make sure your socks fit, too. Wear soft, seamless, well-padded socks for activity. Cotton or microfiber socks are best to help to absorb sweat. To protect your feet, avoid shoes that are open-toed or open-heeled. If you have questions about what kinds of shoes and socks are best, talk to your healthcare team. Get Regular Exercise Regular exercise improves blood flow in your feet. It also increases foot strength and flexibility.Gentle exercises, like walking or riding a stationary bicycle, are best. You can also do special foot exercises. Just be sure to talk with your healthcare provider before starting any exercise program. Also mention if any exercise causes pain, redness, or other signs of foot problems. Note: If you have any kind of break in the skin of your foot or ankle, keep the area clean. Then call your doctorespecially if the area doesnt appear to be healing. [phone] [employer], [address] [place] [address], [place] [id number]. All rights reserved. This information is not intended as a substitute for professional medical care. Always follow your healthcare professional's instructions. BMI (Body Mass Index) is the number obtained by dividing a person's weight in kilograms by his or her height in meters squared. BMI is used in determining obesity. BMI is not used to determine a person's actual percentage of body fat, but it is a good tool to fruit and vegetable factory worker weight in terms of what is healthy and unhealthy. It is used to identify adults at increased risk for developing weight related medical problems. Estimated body mass index is 35.64 kg/m as calculated from the following: Height as of this encounter: 1.676 m (5' 6"). Weight as of this encounter: 100.2 kg (220 lb 12.8 oz). Obesity - BMI 35 kg/m2 to 39.9 kg/mg - Obese individuals are at a risk for developing * Heart disease * Stroke * Diabetes * High Blood Pressure * High Cholesterol * GERD (acid reflux) * Sleep Apnea * Osteoarthritis * Fatty Liver Disease * Certain Types of Cancers * Gout * Gall Bladder Disease - Weight loss has been shown to decrease weight related medical problems. - Those with a BMI 35 kg/m2 or higher are almost ten times more likely to develop diabetes in theirlifetimes than those with a normal BMI. - A 12-week weight management text message program is also available. Go to [employer] and seethe message under '[employer]' for more information and enrollment. Patient is Instructed to: Diet: * Limit total fat intake to no more than 40 grams per day (low fat diet). * Increase fruits and vegetables to 5 servings per day, combined. * Limited starches (breads, pasta, rice, potatoes, corn, cereals) to 4 servings per day. Avoid Calorie Containing Drinks: * No fruit juices, regular sodas or sweetened drinks. * Water is preferred - 64 ounces per day unless advised of a fluid restriction. * Diet sodas and drinks permitted. Keep Honest, Accurate Food logs: * www.[employer] * www.[employer] * If you bite it - write it! Weigh Yourself Weekly: * Morning is best. * Try to do this outside your home. * Have a friend/spouse remind you to weigh yourself, accountability to others helps. Perform 30 minutes of physical activity daily: * Can do all at once or 5 minutes 6 times per day * 8, 000-10,000 steps per day using a pedometer * Make it fun! documented in this encounter Progress Notes * Elías Jade MD - 10/21/2021 9:22 AM EDT Images from the original note were not included. History of Present Illness Sahra Rodríguez is a 76 year old female that presents for Follow Up Nocturnal leg crampin-2x weekly, both calves. Usually unilateral when it happens. Has been busier doing yard work than normal, outside a lot this summer. Started about 6 months ago. Some weeks none, other weeks more often. Does not want shingrix or covid vaccine. Reports sister went downhill after getting gthe vaccine and doesn't even want to think about it. No skin concerns or joint aches. No swelling in feet or ankles. PHQ Adult Depression Screening (PHQ2_9)-Adult (Pt Reported) 10/21/21 Little interest or pleasure in doing things Not at all (0) Feeling down, depressed or hopeless Not at all (0) PHQ Adult Total Score 0 PHQ Adult Score Description No Depression Physical Exam Vitals: 10/21/21 0905 Temp: 36.3 C (97.3 F) Pulse: 60 Resp: 16 SpO2: 98% BP: 134/74 BMI: 35.65 Physical Exam Vitals and nursing note reviewed. [...] lower leg: No edema. Comments: Ambulates independently Lymphadenopathy: Cervical: No cervical adenopathy. Skin: General: Skin is warm and dry. Findings: Lesion (multiple skin tags around neckline) present. Neurological: General: No focal deficit present. Mental Status: She is alert and oriented to person, place, and time. Cranial Nerves: No cranial nerve deficit. Motor: Weakness (full stregth, equal bilaterally) present. Psychiatric: Mood and Affect: Mood normal. Behavior: Behavior normal. Thought Content: Thought content normal. I have reviewed the following results: CMP, Lipid Panel and Hemoglobin A1C Assessment and Plan Leg cramping Will check labs today; likely combination of heat, working outisde and furosemide causing dehydration. - MAGNESIUM; Future Dizziness Taking prn infrequently; if more persistent, advised vestibular PT. - Meclizine HCl 25 MG Oral Tablet (Antivert); Take by mouth 1 Tablet as needed in the morning AND 1Tablet as needed at noon AND 1 Tablet as needed in the evening for Dizziness. Left heart failure (HCC) Chronic, stable. No swelling, asymptomatic. - Furosemide 20 MG Oral Tablet (Lasix); Take by mouth 1 Tablet in the morning. Type 2 diabetes mellitus with hemoglobin A1c goal of less than 7.0% ([facility]) Due for A1c. No missed medications. - HEMOGLOBIN A1C; Future DM type 2 nursing care encounter (HCC) Done - DIABETES FOOT EXAM Type 2 diabetes mellitus with stage 3a chronic kidney disease, without long-term current use of insulin ([facility]) Cr 1.2 last labs. - PHOSPHORUS; Future - RENAL FUNCTION PANEL; Future Severe obesity with body mass index (BMI) of 35.0 to 39.9 with serious comorbidity ([facility]) Discussed increased physical activity to 150 minutes weekly, reducing portion sizes, and cutting out "emtpy calories". Handout provided. Secondary hyperparathyroidism Will recheck pth today. Wrap-Up Time: I spent a total of 30-39 minutes (exact time 34 mins) on the date of service in preparation, delivery, and documentation of the care provided to Sahra Rodríguez excluding any time spent in the performance of separately billed services. Patient counseling on weight management given. * GRACE Uriarte - 10/21/2021 8:59 AM EDT Chief Complaint Patient presents with Follow Up Pt here for follow up today. Pt complaining of damon horses at night sometimes. Faxed Dr Juárez for recent DM eye exam. Patient has been verbally educated on the need or importance of Immunizations: Shingrix. DM Foot Exam completed today. Provider aware. GRACE Uriarte Socks and Shoes Removed for Annual Diabetic Foot Screening RIGHT FOOT: No Reddened, Cracking, Or Open Areas Noted. RIGHT Dorsalis Pedis Pulse: Palpable RIGHT Posterior Tibial Pulse: Palpable RIGHT Monofilament:Patient reports feeling monofilament pressure on plantar surface of foot LEFT FOOT: No Reddened, Cracking or Open Areas Noted. LEFT Dorsalis Pedis Pulse: Palpable LEFT Posterior Tibial Pulse: Palpable LEFT Monofilament:Patient reports feeling monofilament pressure on plantar surface of foot documented in this encounter Plan of Treatment Upcoming Encounters Date Type Specialty Care Team Description 10/21/2021 Laboratory Laboratory [facility] [address] [address] Arrived 05/01/2022 Office Visit Family Medicine Elías Jade MD [address] [address] Scheduled Orders Name Type Priority Associated Diagnoses Orde r Schedule HEMOGLOBIN A1C Lab Routine Type 2 diabetes mellitus with hemoglobin A1c goal of less than 7.0% ([facility]) Expected: 10/21/2021 (Approximate), Expires: 10/21/2022 PHOSPHORUS Lab Routine Type 2 diabetes mellitus with stage 3a chronic kidney disease, without long-term current use of insulin ([facility]) Expected: 10/21/2021 (Approximate), Expires: 10/21/2022 MAGNESIUM Lab Routine Leg cramping Expected: 10/21/2021 (Approximate), Expires: 10/21/2022 RENAL FUNCTION PANEL Lab Routine Type 2 diabetes mellitus with stage 3a chronic kidney disease, without long-term current use of insulin ([facility]) Expected: 10/21/2021 (Approximate), Expires: 10/21/2022 PTH Lab Routine Secondary hyperparathyroidism, non-renal ([facility]) Expected: 10/21/2021 (Approximate), Expires: 10/21/2022 Health Maintenance Due Date Last Done Comments COVID-19 Vaccine (#1) 1945 CKD PHOS USE SMARTSET 85300 1962 Zoster Vaccines (1 of 2) 1994 DIABETES-EYE EXAM 07/16/2021 07/16/2020, 06/30/2019 Depression Screening, Annual for Pts 12 and Over 07/16/2021 07/16/2020 DIABETES-HGBA1C EVERY 6 MONTHS 08/28/2021 02/28/2021, 01/20/2021, 10/06/2020, Additional history exists CKD GFR USE SMARTSET 82707 12/02/202106/04, 05/26/2021, 04/12/2021, Additional history exists Influenza Vaccine (FLU shot) (#1) 2021 07/15/2019, 02/22/2016, 03/08/2015 DIABETES-URINE ALBUMIN/CREATININE EVERY 12 MONTHS 04/01/2022 04/01/2021, 07/16/2020, 06/06/2019 BASIC METABOLIC PANEL (BMP) FOR HTN YEARLY 06/04/2022 06/04/2021, 05/26/2021, 04/12/2021, Additional history exists CKD HGB USE SMARTSET 72846 06/04/202206/04, 06/04/2021, 05/26/2021, Additional history exists DIABETES-FOOT EXAM 10/21/2022 10/21/2021, 0 07/16/2020, 07/15/2019 Dexa Scan 03/11/2026 03/11/2019 DTaP,Tdap,and Td Vaccines [...] as of this encounter Visit Diagnoses Diagnosis Leg cramping- Primary Dizziness Dizziness and giddiness Left heart failure (HCC) Left heart failure Type 2 diabetes mellitus with hemoglobin A1c goal of less than 7.0% (HCC) DM type 2 nursing care encounter (HCC) Type II or unspecified type diabetes mellitus without mention of complication, not stated as uncontrolled Type 2 diabetes mellitus with stage 3a chronic kidney disease, without long-term current use of insulin (HCC) Severe obesity with body mass index (BMI) of 35.0 to 39.9 with serious comorbidity (HCC) Secondary hyperparathyroidism, non-renal (HCC) Secondary hyperparathyroidism, non-renal documented in this encounter Advance Directives Documents on File Type Date Recorded 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
--- OUTSIDE RECORDS SUMMARY | 2022-12-17 03:27 | External Medical Summary ---
Author Name Unknown Address Unknown Organization K1F:[facility] - [address] [address] Laboratory Report Ordering Provider Test Date Status JAIME DESAI 03/19/2022 01:00:21 Final Observation Date Value Abnormality Reference (Units ) Status WBC, Total 03/19/2022 01:00:21 7.06 4.00-10.80 (K/uL) Final RBC 03/19/2022 01:00:21 3.89 3.85-5.15 (M/uL) Final Hemoglobin 03/19/2022 01:00:21 10.8 Below low normal 12.0-15.3 (g/dL) Final HCT 03/19/2022 01:00:21 35.0 Below low normal 36.0-45.2 (%) Final MCV 03/19/2022 01:00:21 90.0 81.5-97.5 (fL) Final MCH 03/19/2022 01:00:21 27.8 27.0-34.0 (pg) Final MCHC 03/19/2022 01:00:21 30.9 32.0-36.0 (g/dL) Final RDW 03/19/2022 01:00:21 13.7 11.5-15.5 (%) Final Platelets 03/19/2022 01:00:21 220 140-400 (K/uL) Final MPV 03/19/2022 01:00:21 10.1 6.6-11.1 (fL) Final Nucleated erythrocytes/100 leukocytes [Ratio] in Blood by Automated count 03/19/2022 01:00:21 0 <=0 (/100 WBCs) Final Performing Location [facility] - [address] [address]
--- OUTSIDE RECORDS SUMMARY | 2022-12-17 03:27 | External Medical Summary | Summary of Care ---
Author Name Unknown Organization [facility] [place] [address] Care Team Providers Care Director Of Business Operations Name Role Phone Elías Jade MD Primary Care Provider [phone] Reason for Visit * Reason Onset Date Comments Med Request 01/11/2022 Encounter Details Date Type Department Care Team Description [facility] [place] [address] Elías Jade MD 21 [place] [address] Med Request Allergies Active Allergy Reactions Severity Noted Date Comments Eggs Or Egg-Derived Products Diarrhea 021 documented as of this encounter (statuses as of 01/12/2022) Medications Medication Sig Dispensed Refills Start Date [...] as of this encounter (statuses as of 01/12/2022) Active Problems Problem Noted Date Type 2 [...] as of this encounter (statuses as of 01/12/2022) Resolved Problems Problem Noted Date Resolved Date [...] as of this encounter (statuses as of 01/12/2022) Immunizations Name Administration Dates Next Due DTaP [...] encounter Miscellaneous Notes * Telephone Encounter - Leslye Lopez LPN - 01/12/2022 11:19 AM EDT Patient has been informed of below message [...] be called in if appropriate Tyrell Caballero Pht Hearing Care Professional Pharmacy Refill Call Center 01/11/2022,12:36 PM documented in this encounter Plan of Treatment Upcoming Encounters Date Type Specialty Care Team Description 05/01/2022 Office Visit Family Medicine Elías Jade MD [address] [place] [address] Health Maintenance Due Date Last Done Comments [...] Additional history exists CKD HGB USE SMARTSET 71041 06/04/202206/04, 06/04/2021, 05/26/2021, Additional history exists DIABETES-EYE EXAM 10/18/2022 10/18/2021, , 06/30/2019 CKD PHOS USE SMARTSET 93422 10/21/2022 10/21/2021 DIABETES-FOOT EXAM 10/21/2022 10/21/2021, 0 [...] Documents on File Type Date Recorded 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
--- OUTSIDE RECORDS SUMMARY | 2022-12-17 03:27 | External Medical Summary | Summary of Care ---
Author Name Unknown Organization [place] [address] Care Team Providers Care Application Software Developer Name Role Phone Elías Jade MD Primary Care Provider [phone] [phone] Reason for Referral * Evaluate & Treat - Unlimited Visits (Within 10 days (routine)) - Pending Review Specialty Diagnoses / Procedures Referred By Olivia torerz Referred To Contact CARDIAC REHAB / Cardiology Diagnoses S/P aortic valve replacement Danilo Hussein DO [address] [facility] [place] [address] Referral ID Status Reason Start Date Expiration Date Visits Requested Visits Authorized [id number] Pending Review Specialty Services Required 02/20/2022 999 999 Question Answer Referral Priority Within 10 days (routine) Cardiac Rehabilitation Modality No Preference, either is clinically appropriate Encounter Details Date Type Department Care Team Description 02/20/2022 Orders Only Cardiac Rehab, [address] [place] [address] Danilo Hussein DO [address] [facility] [place] [address] S/P aortic valve replacement* Allergies Active Allergy Reactions Severity Noted Date Comments Eggs Or Egg-Derived Products Diarrhea 021 documented as of this encounter (statuses as of 02/20/2022) Medications Medication Sig Dispensed Refills Start Date End Date Status aspirin enteric coated 81 MG TBEC Take 1 Tab by mouth daily. 0 Active omeprazole (PRILOSEC) 20 MG CPDR Take 1 Cap by mouth daily. 0 Active B-12 1000 MCG [address]ual Tablet Sublingual [address] 1,000 MCG UNDER THE TONGUE DAILY 30 Tab 11 07/09/2020 Active Additional Information Patient not taking.Reported on 10/21/2021 Escitalopram Oxalate 10 MG Oral [...] as of this encounter (statuses as of 02/20/2022) Active Problems Problem Noted Date Type 2 [...] as of this encounter (statuses as of 02/20/2022) Resolved Problems Problem Noted Date Resolved Date [...] as of this encounter (statuses as of 02/20/2022) Immunizations Name Administration Dates Next Due DTaP [...] No 02/28/2021 documented as of this encounter Progress Notes * Iris Macedo, EPC - 02/20/2022 9:31 AM EST Images from the original note were not included. 02/20/2022 Good Afternoon, We would like to let you know that your patient has chosen to participate in [facility]'s Virtual Cardiac Rehab program in partnership with [employer]. [employer] is a specialized company that specializes in providing cardiac rehab service. Our program is supervised by [facility] clinicians and includes all the judd of our in-person rehab programs, such as exercise training and heart healthy education. During the 12-week program, patients meet with an curriculum assistant over video to work on their recovery 2-3 times per week to help support them and strengthen their heart. To begin the process of enrollment, Dr. Danilo Hussein, [facility] Project Mgr has placed an outpatient cardiac rehabilitation referral for your patient to participate in our virtual program with [employer]. If you have any questions or concerns about this program, please contact Iris [facility] EP-C Thank you, Cardiac Rehabilitation Staff [facility] [address] [address] [email or web address] documented in this encounter Plan of Treatment Upcoming Encounters Date Type Specialty Care Team Description 05/01/2022 Office Visit Family Medicine Elías Jade MD [address] [place] [address] Scheduled Referrals Name Type Priority Associated Diagnoses Orde r Schedule CARDIAC REHAB REFERRAL OP Referral Within 10 days (routine) S/P aortic valve replacement Ordered: 02/20/2022 Health Maintenance Due Date Last Done Comments [...] Additional history exists CKD HGB USE SMARTSET 91162 06/04/202206/04, 06/04/2021, 05/26/2021, Additional history exists DIABETES-EYE EXAM 10/18/2022 10/18/2021, , 06/30/2019 CKD PHOS USE SMARTSET 14291 10/21/2022 10/21/2021 DIABETES-FOOT EXAM 10/21/2022 10/21/2021, 0 [...] as of this encounter Visit Diagnoses Diagnosis S/P aortic valve replacement- Primary Heart valve replaced by other means documented in this encounter Advance Directives Latest Code Status on File Code Status Date Activated Date Inactivated Comments Full Code 02/28/2021 8:35 AM 03/01/2021 8:18 PM Thi s order reflects the patients wishes and were consensually agreed upon. Question Answer Comments Discussion of Advance Directives occurred with: Patient Code Status History Code Status Date Activated Date Inactivated Comments Full Code 10/06/2020 12:41 AM 10/06/2020 9:21 PM This order reflects the patients wishes and were consensually agreed upon. Question Answer Comments Discussion of Advance Directives occurred with: Patient Care Teams Application Software Developer Relationship Specialty Start Date End Date Elías Jade MD [address] [place] [address] PCP - General Family Medicine 06/01/21 documented as of this encounter
--- OUTSIDE RECORDS SUMMARY | 2022-12-17 03:27 | External Medical Summary ---
Author Name Unknown Address Unknown Organization K1F:LABORATORY [facility] - [place] [address] Laboratory Report Ordering Provider Test Date Status JAIME DESAI 03/19/2022 02:41:00 Final Observation Date Value Abnormality Reference (Units ) Status Troponin T 03/19/2022 02:41:00 26 Above high normal < =14 (ng/L) Final Performing Location LABORATORY [facility] - [address] [place] [address]
--- OUTSIDE RECORDS SUMMARY | 2022-12-17 03:27 | External Medical Summary | Summary of Care ---
Author Name Unknown Organization [facility] [place] [address] Care Team Providers Care Cisco Certified Network Professional Name Role Phone Elías Jade MD Primary Care Provider [phone] Encounter Details Date Type Department Care Team Description 11/01/2021 Orders Only [facility] 21 [place] [address] Elías Jade MD 21 [place] [address] Allergies Active Allergy Reactions Severity Noted Date Comments Eggs Or Egg-Derived Products Diarrhea 021 documented as of this encounter (statuses as of 11/01/2021) Medications Medication Sig Dispensed Refills Start Date [...] FOR DIZZINESS 30 Tablet 1 10/31/2021 Active documented as of this encounter (statuses as of 11/01/2021) Active Problems Problem Noted Date Left heart [...] as of this encounter (statuses as of 11/01/2021) Resolved Problems Problem Noted Date Resolved Date [...] as of this encounter (statuses as of 11/01/2021) Immunizations Name Administration Dates Next Due DTaP [...] (15 years old or older) No 02/29/20 Cognitive Status Response Date of Assessm ent Because of a physical, menta l, or emotional condition, do you have serious difficulty concentrating, remembering, or making decisions? (5 years old or older No 02/28/2021 documented as of this encounter Plan of Treatment Upcoming Encounters Date Type Specialty Care Team Description 05/01/2022 Office Visit Family Medicine Elías Jade MD [address] [place] [address] Health Maintenance Due Date Last Done Comments COVID-19 Vaccine (#1) 1945 Zoster Vaccines (1 of 2) 1994 DIABETES-EYE EXAM 07/16/2021 10/18/2021, , 06/30/2019 Influenza Vaccine (FLU shot) (#1) 2021 07/15/2019, 02/22/2016, 03/08/2015 DIABETES-URINE ALBUMIN/CREATININE EVERY 12 MONTHS 04/01/2022 04/01/2021, 07/16/2020, 06/06/2019 DIABETES-HGBA1C EVERY 6 MONTHS 04/23/2022 10/21/2021, 02/28/2021, 01/20/2021, Additional history exists GFR - Renal Function 04/23/2022 10/21/2021, 06/04/2021, 05/26/2021, Additional history exists CKD HGB USE SMARTSET 86232 06/04/202206/04, 06/04/2021, 05/26/2021, Additional history exists CKD PHOS USE SMARTSET 39433 10/21/2022 10/21/2021 DIABETES-FOOT EXAM 10/21/2022 10/21/2021, 0 [...] Procedure Name Priority Date/Time Associated Diagnosis Comments DIABETIC EYE EXAM Routine 10/18/2021 documented in this encounter Results * DIABETIC EYE EXAM (10/18/2021) Specimen Narrative OUTSIDE LAB (SEE SCANNED REPORT) documented in this encounter Advance Directives Documents on File Type Date Recorded 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
--- OUTSIDE RECORDS SUMMARY | 2022-12-17 03:27 | External Medical Summary ---
Author Name Unknown Address Unknown Organization K1F:LABORATORY [facility] - [place] [address] Laboratory Report Ordering Provider Test Date Status JAIME DESAI 03/19/2022 01:00:21 Final Observation Date Value Abnormality Reference (Units ) Status Troponin T 03/19/2022 01:00:21 27 Above high normal < =14 (ng/L) Final Performing Location LABORATORY [facility] - [address] [place] [address]
--- OUTSIDE RECORDS SUMMARY | 2022-12-17 03:27 | External Medical Summary ---
Author Name Unknown Address Unknown Organization K1F:LABORATORY [facility] - [address] [facility] [place] [address] Laboratory Report Ordering Provider Test Date Status JAIME DESAI 03/19/2022 01:00:21 Final Observation Date Value Abnormality Reference (Units ) Status SYNC LEUKOCYTES IN BLOOD BY AUTOMATED COUNT 03/19/2022 01:00:21 7.06 4.00-10.80 (K/uL) Final Segs 03/19/2022 01:00:21 65.7 40.0-75.0 (%) Final Lymphs % 03/19/2022 01:00:21 22.7 18.0-42.0 (%) Final Monos 03/19/2022 01:00:21 7.1 1.0-11.0 (%) Final Eosinophils 03/19/2022 01:00:21 3.7 0.0-6.0 (%) Final Basos 03/19/2022 01:00:21 0.7 0.0-2.0 (%) Final Immature Granulocyte, Percent 03/19/2022 01:00:21 0.1 0.0-2.0 (%) Final Absolute Segs 03/19/2022 01:00:21 4.64 1.80-7.70 (K/uL) Final Lymphs, absolute 03/19/2022 01:00:21 1.60 1.00-4.80 (K/ul) Final Monos, Abs 03/19/2022 01:00:21 0.50 0.00-1.10 (K/uL) Final Eos, Abs 03/19/2022 01:00:21 0.26 0.00-0.70 (K/uL) Final Basos, Abs 03/19/2022 01:00:21 0.05 0.00-0.20 (K/uL) Final Immature Granulocytes, Number 03/19/2022 01:00:21 0.01 0.00-0.20 (K/uL) Final Performing Location LABORATORY [facility] - [address] [place] [address]
--- OUTSIDE RECORDS SUMMARY | 2022-12-17 03:27 | External Medical Summary ---
Author Name Unknown Address Unknown Organization K1F:LABORATORY [facility] - [address] [place] [address] Laboratory Report Ordering Provider Test Date Status JULIO C FLAHERTY 03/19/2022 02:41:00 Final Observation Date Value Abnormality Reference (Units ) Status Phosphate 03/19/2022 02:41:00 3.6 2.5-4.8 (m g/dL) Final Performing Location LABORATORY [facility] - [address] [place] [address]
--- OUTSIDE RECORDS SUMMARY | 2022-12-17 03:27 | External Medical Summary | Summary of Care ---
Author Name Unknown Organization [facility] [place] [address] Care Team Providers Care Golf Sales Manager Name Role Phone Elías Jade MD Primary Care Provider [phone] Reason for Visit * Reason Comments Follow Up Encounter Details Date Type Department Care Team Description 10/21/2021 Office Visit [facility] 21 [facility] [place] [address] Elías Jade MD 21 [facility] [place] [address] Leg cramping*; Dizziness; Left heart failure (HCC); Type 2 diabetes mellitus with hemoglobin A1c goal of less than 7.0% ([facility]); DM type 2 nursing care encounter (HCC); Type 2 diabetes mellitus with stage 3a chronic kidney disease, without long-term current use of insulin ([facility]); Severe obesity with body mass index [...] calluses yourself. Talk to your doctor or food quality tester (a doctor who specializes in foot care) [...] the area doesnt appear to be healing. [id number] [employer], [address] [place] [address], [place] [address]. All rights reserved. This information is not [...] calluses yourself. Talk to your doctor or food quality tester (a doctor who specializes in foot care) [...] the area doesnt appear to be healing. [id number] [employer], [address] [place] [address], [place] [id number]. All rights reserved. 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 Go to [employer] and seethe message under 'Certain News' for more information and enrollment. Patient [...] permitted. Keep Honest, Accurate Food logs: * www.Best Five Reviewed * www.Therosteon * If you bite it - write [...] hemoglobin A1c goal of less than 7.0% ([facility]) Due for A1c. No missed medications. - HEMOGLOBIN A1C; Future DM type 2 nursing care encounter (HCC) Done - DIABETES FOOT EXAM Type 2 diabetes mellitus with stage 3a chronic kidney disease, without long-term current use of insulin ([facility]) Cr 1.2 last labs. - PHOSPHORUS; Future - RENAL FUNCTION PANEL; Future Severe obesity with body mass index (BMI) of 35.0 to 39.9 with serious comorbidity ([facility]) Discussed increased physical activity to 150 [...] Laboratory Laboratory [facility] [place] [address] [place] [address] Type 2 diabetes mellitus with hemoglobin A1c goal of less than 7.0% ([facility]); Type 2 diabetes mellitus with stage 3a chronic kidney disease, without long-term current use of insulin ([facility]); Leg cramping; Secondary hyperparathyroidism, non-renal ([facility]) 05/01/2022 Office Visit Family Medicine YasmanyElías MD [address] [place] [address] Pending Results Name Type Priority Associated Diagnoses Date /Time HEMOGLOBIN A1C Lab Routine Type 2 diabetes mellitus with hemoglobin A1c goal of less than 7.0% ([facility]) 10/21/2021 9:57 AM EDT MAGNESIUM Lab Routine Leg cramping 10/21/2021 9:57 AM EDT RENAL FUNCTION PANEL Lab Routine Type 2 diabetes mellitus with stage 3a chronic kidney disease, without long-term current use of insulin ([facility]) 10/21/2021 9:57 AM EDT PTH Lab Routine Secondary hyperparathyroidism, non-renal ([facility]) 10/21/2021 9:57 AM EDT Scheduled Orders Name Type Priority Associated Diagnoses Orde r Schedule HEMOGLOBIN A1C Lab Routine Type 2 diabetes mellitus with hemoglobin A1c goal of less than 7.0% (HCC) Expected: 10/21/2021 (Approximate), Expires: 10/21/2022 MAGNESIUM Lab Routine Leg cramping Expected: 10/21/2021 (Approximate), Expires: 10/21/2022 RENAL FUNCTION PANEL Lab Routine Type 2 diabetes mellitus with stage 3a chronic kidney disease, without long-term current use of insulin (HCC) Expected: 10/21/2021 (Approximate), Expires: 10/21/2022 PTH Lab Routine Secondary hyperparathyroidism, non-renal (HCC) Expected: 10/21/2021 (Approximate), Expires: 10/21/2022 Health Maintenance Due Date Last Done Comments COVID-19 Vaccine (#1) 1945 CKD PHOS USE SMARTSET 67731 1962 Zoster Vaccines (1 of 2) 1994 DIABETES-EYE EXAM 07/16/2021 07/16/2020, 06/30/2019 Depression Screening, Annual for Pts 12 and Over 07/16/2021 07/16/2020 DIABETES-HGBA1C EVERY 6 MONTHS 08/28/2021 02/28/2021, 01/20/2021, 10/06/2020, Additional history exists CKD GFR USE SMARTSET 16838 12/02/202106/04, 05/26/2021, 04/12/2021, Additional history exists Influenza Vaccine (FLU shot) (#1) 2021 07/15/2019, 02/22/2016, 03/08/2015 DIABETES-URINE ALBUMIN/CREATININE EVERY 12 MONTHS 04/01/2022 04/01/2021, 07/16/2020, 06/06/2019 BASIC METABOLIC PANEL (BMP) FOR HTN YEARLY 06/04/2022 06/04/2021, 05/26/2021, 04/12/2021, Additional history exists CKD HGB USE SMARTSET 03158 06/04/202206/04, 06/04/2021, 05/26/2021, Additional history exists DIABETES-FOOT [...] Secondary hyperparathyroidism, non-renal (HCC) Secondary hyperparathyroidism, non-renal Type 2 diabetes mellitus with hemoglobin A1c goal of less than 7.0% (HCC) Type 2 diabetes mellitus with stage 3a chronic kidney disease, without long-term current use of insulin (HCC) Leg cramping Secondary hyperparathyroidism, non-renal (HCC) Secondary hyperparathyroidism, non-renal documented in this encounter Advance Directives Documents on File Type Date Recorded Patient End Frazer 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 Advance Directives occurred with: Patient Care Teams Golf Sales Manager Relationship Specialty Start Date End Date Elías Jade MD [place] [address] PCP - General Family Medicine 06/01/21 documented as of this encounter
--- OUTSIDE RECORDS SUMMARY | 2022-12-17 03:27 | External Medical Summary ---
Author Name Unknown Address Unknown Organization K1F:LABORATORY [facility] - [address] [place] [address] Laboratory Report Ordering Provider Test Date Status JULIO C FLAHERTY 03/19/2022 02:41:00 Final Observation Date Value Abnormality Reference (Units ) Status Magnesium 03/19/2022 02:41:00 2.1 1.5-2.6 (m g/dL) Final Performing Location LABORATORY [facility] - [address] [place] [address]
--- OUTSIDE RECORDS SUMMARY | 2022-12-17 03:27 | External Medical Summary | Summary of Care ---
Author Name Unknown Organization [facility] [place] [address] Care Team Providers Care Army Helicopter Pilot Name Role Phone Elías Jade MD Primary Care Provider [phone] Reason for Visit * Reason Comments Outpatient Testing Encounter Details Date Type Department Care Team Description 10/21/2021 Laboratory Laboratory, [place] 21 [place] [address] [facility] 21 [place] [address] Type 2 diabetes mellitus with hemoglobin A1c goal of less than 7.0% ([facility]); Type 2 diabetes mellitus with stage 3a chronic kidney disease, without long-term current use of insulin ([facility]); Leg cramping; Secondary hyperparathyroidism, non-renal ([facility]) Allergies Active Allergy Reactions Severity Noted Date [...] HCl 25 MG Oral Tablet (Antivert)Indicatio ns:Dizziness Take by mouth 1 Tablet as needed in the morning AND 1 Tablet as needed at noon AND 1 Tablet as needed in the evening for Dizziness. 30 Tablet 0 10/21/2021 Active Furosemide 20 MG Oral Tablet (Lasix)Indications: Left heart failure (HCC) Take by mouth 1 Tablet in the morning. 90 Tablet 3 10/21/2021 Active documented as of this encounter (statuses [...] Office Visit Family Medicine Elías Jade MD [address] [place] [address] Pending Results Name Type Priority Associated Diagnoses Date /Time HEMOGLOBIN A1C Lab Routine Type 2 diabetes mellitus with hemoglobin A1c goal of less than 7.0% ([facility]) 10/21/2021 9:57 AM EDT MAGNESIUM Lab Routine Leg cramping 10/21/2021 9:57 AM EDT RENAL FUNCTION PANEL Lab Routine Type 2 diabetes mellitus with stage 3a chronic kidney disease, without long-term current use of insulin ([facility]) 10/21/2021 9:57 AM EDT PTH Lab Routine Secondary hyperparathyroidism, non-renal ([facility]) 10/21/2021 9:57 AM EDT Health Maintenance Due Date Last Done Comments COVID-19 Vaccine (#1) 1945 CKD PHOS USE SMARTSET 34647 1962 Zoster Vaccines (1 of 2) 1994 DIABETES-EYE EXAM 07/16/2021 07/16/2020, 06/30/2019 Depression Screening, Annual for Pts 12 and Over 07/16/2021 07/16/2020 DIABETES-HGBA1C EVERY 6 MONTHS 08/28/2021 02/28/2021, 01/20/2021, 10/06/2020, Additional history exists CKD GFR USE SMARTSET 61841 12/02/202106/04, 05/26/2021, 04/12/2021, Additional history exists Influenza Vaccine (FLU shot) (#1) 2021 07/15/2019, 02/22/2016, 03/08/2015 DIABETES-URINE ALBUMIN/CREATININE EVERY 12 MONTHS 04/01/2022 04/01/2021, 07/16/2020, 06/06/2019 BASIC METABOLIC PANEL (BMP) FOR HTN YEARLY 06/04/2022 06/04/2021, 05/26/2021, 04/12/2021, Additional history exists CKD HGB USE SMARTSET 69348 06/04/202206/04, 06/04/2021, 05/26/2021, Additional history exists DIABETES-FOOT [...] Diagnoses Diagnosis Type 2 diabetes mellitus with hemoglobin A1c goal of less than 7.0% (HCC) Type 2 diabetes mellitus with stage 3a chronic kidney disease, without long-term current use of insulin (HCC) Leg cramping Secondary hyperparathyroidism, non-renal (HCC) Secondary hyperparathyroidism, non-renal documented in this encounter Advance Directives Documents on File Type Date Recorded 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
--- OUTSIDE RECORDS SUMMARY | 2022-12-17 03:27 | External Medical Summary ---
Author Name Unknown Address Unknown Organization K1F:LABORATORY [facility] - [address] [place] [address] Laboratory Report Ordering Provider Test Date Status JAIME DESAI 03/19/2022 01:00:21 Final Observation Date Value Abnormality Reference (Units ) Status BUN 03/19/2022 01:00:21 20 6-20 (mg/dL) Final Creatinine 03/19/2022 01:00:21 1.4 Above high normal 0.5-1.0 (mg/dL) Final Glomerular filtration rate/1.73 sq M.predicted [Volume Rate/Area] in Serum, Plasma or Blood by Creatinine-based formula (CKD-EPI) 03/19/2022 01:00:21 38 Below low normal >=60 (mL/min) Final Performing Location LABORATORY [facility] - [address] [place] [address]
--- OUTSIDE RECORDS SUMMARY | 2022-12-17 03:28 | External Medical Summary ---
Author Name Unknown Address Unknown Organization K01:LABORATORY [facility] [place] - [address] [place] [address] Laboratory Report Ordering Provider Test Date Status OFELIA GONSALEZ 10/21/2021 09:57:36 Final Observation Date Value Abnormality Reference (Units ) Status Parathyrin.intact [Mass/volume] in Serum or Plasma 10/21/2021 09:57:36 109 Above high normal 15-65 (pg/mL) Final Performing Location LABORATORY [facility] [place] - [address] [place] [place] [address]
--- OUTSIDE RECORDS SUMMARY | 2022-12-17 03:28 | External Medical Summary | Summary of Care ---
Author Name Unknown Organization [facility] [place] [address] Care Team Providers Care Helper Maintenance Cleaning Name Role Phone Elías Gilbert MD Primary Care Provider [phone] Reason for Visit * Reason Onset Date Comments Medication Refill 09/15/2021 Encounter Details Date Type Department Care Team Description 09/15/2021 Refill [facility] [address] [place] [address] Elías Gilbert MD 21 [place] [address] ADRIANA (generalized anxiety disorder) Allergies Active Allergy Reactions Severity Noted Date Comments Eggs Or Egg-Derived Products Diarrhea 021 documented as of this encounter (statuses as of 09/15/2021) Medications Medication Sig Dispensed Refills Start Date End Date Status aspirin enteric coated 81 MG TBEC Take 1 Tab by mouth daily. 0 Active omeprazole (PRILOSEC) 20 MG CPDR Take 1 Cap by mouth daily. 0 Active B-12 1000 MCG Sublingual Tablet Sublingual [address] 1,000 MCG UNDER THE TONGUE DAILY 30 Tab 11 07/09/2020 Active Zoster Vac Recomb Adjuvanted 50 MCG/0.5ML Intramuscular Suspension Reconstituted (Shingrix)Indicatio ns:Need for vaccination for zoster Inject 0.5 mL into a large muscle now and repeat dose in 60 to 180 days 1 Each 1 07/16/2020 Active Atorvastatin Calcium 80 MG Oral Tablet (Lipitor)Indication s:Dyslipidemia, goal LDL below 100 Take 1 Tablet by mouth at bedtime. 90 Tablet 3 03/02/2021 Active Escitalopram Oxalate 10 MG Oral Tablet (Lexapro)Indication s:ADRIANA (generalized anxiety disorder) Take 1 Tablet by mouth daily. 90 Tablet 1 03/07/2021 Active Furosemide 20 MG Oral Tablet (Lasix)Indications: Left heart failure (HCC) Take 1 Tablet by mouth daily. 30 Tablet 11 04/05/2021 Active Meclizine HCl 25 MG Oral Tablet (Antivert) Take 1 Tablet by mouth 3 times a day as needed for Dizziness. 30 Tablet 0 04/13/2021 Active metFORMIN HCl 1000 MG Oral Tablet (Glucophage)Indicat ions:Type 2 diabetes mellitus with stage 3a chronic kidney disease, without long-term current use of insulin (HCC) Take by mouth 1 Tablet 2 times a day with morning and evening meals . 180 Tablet 3 05/16/2021 Active Lisinopril 20 MG Oral Tablet (Prinivil)Indicatio ns:Stage 3a chronic kidney disease (HCC),HTN, goal below 140/90 Take by mouth 1 Tablet before bedtime. 90 Tablet 3 06/24/2021 Active predniSONE 10 MG Oral Tablet (Deltasone)Indicati ons:Bronchitis, complicated Take 4 tabs for 2 days, 3 tabs for 2 days, 2 tabs for 2 days 1 tab for 2 days 20 Tablet 0 06/30/2021 Active ProAir HFA 108 (90 Base) MCG/ACT Inhalation Aerosol SolutionIndications :Bronchitis, complicated Inhale by mouth 2 Puffs every 4 hours as needed for Wheezing. 8 g 1 06/30/2021 Active Benzonatate 100 MG Oral Capsule (Tessalon Perles)Indications: Bronchitis, complicated Take by mouth 1 Capsule as needed in the morning AND 1 Capsule as needed at noon AND 1 Capsule as needed in the evening for Cough. Do not cut, crush, or chew.. 50 Capsule 1 06/30/2021 Active Metoprolol Tartrate 25 MG Oral Tablet (Lopressor) TAKE ONE-HALF TABLET BY MOUTH TWICE A DAY 30 Tablet 11 08/19/2021 Active Gabapentin 300 MG Oral Capsule (Neurontin) 1 Capsule before bedtime. 0 08/12/2021 Active busPIRone HCl 10 MG Oral Tablet (Buspar)Indications :ADRIANA (generalized anxiety disorder) TAKE ONE TABLET BY MOUTH THREE TIMES A DAY NEEDED FOR ANXIETY 270 Tablet 3 09/15/2021 Active busPIRone HCl 10 MG Oral Tablet (Buspar)Indications :ADRIANA (generalized anxiety disorder) TAKE ONE TABLET BY MOUTH THREE TIMES A DAY NEEDED FOR ANXIETY 270 Tab 1 10/12/2020 09/15/2021 Discontinue d(Refill) documented as of this encounter (statuses as of 09/15/2021) Active Problems Problem Noted Date Left heart [...] as of this encounter (statuses as of 09/15/2021) Resolved Problems Problem Noted Date Resolved Date [...] as of this encounter (statuses as of 09/15/2021) Immunizations Name Administration Dates Next Due DTaP [...] Telephone Encounter - Elías Gilbert MD - 09/15/2021 2:40 PM EDT Signed Prescriptions: Disp Refills busPIRone HCl 10 MG Oral Tablet (Buspar) 270 Ta*3 Sig: TAKE ONE TABLET BY MOUTH THREE TIMES A DAY NEEDED FOR ANXIETY Authorizing Provider: ELÍAS GILBERT * Telephone Encounter - Leah Perez CPhT - 09/15/2021 10:24 AM EDT Pending Prescriptions: Disp Refills busPIRone HCl 10 MG Oral Tablet (Buspar) 270 Ta*1 Sig: TAKE ONE TABLET BY MOUTH THREE TIMES A DAY NEEDED FOR ANXIETY 06/30/2021 (in office), Visit date not found (telemedicine) 10/21/2021 If no future appointments scheduled, and last appointment is greater than a year ago, please schedule patient for a follow-up appointment Last date the medication was ordered: 10/12/2020 Pharmacy: [facility] [address]- [place] Is this request for a controlled substance? and Urine Drug Screen Not completed Urine Drug Screen:No results found for this or any previous visit. Patient Phone Numbers Labs: Lab Results Component Value Date/Time CREAT 1.2 (H) 06/04/2021 06:30 AM CREAT 1.2 (H) 10/31/2019 10:03 AM POTASSIUM 4.9 06/04/2021 06:30 AM POTASSIUM 4.6 10/31/2019 10:03 AM TSH 2.02 05/19/2019 10:59 PM LDLCALC 153 (H) 02/28/2021 05:51 AM LDLCALC 66 06/03/2019 07:54 AM LDLDIRECT NOT APPLICABLE 06/03/2019 07:54 AM ALT 15 06/04/2021 06:30 AM ALT 13 10/31/2019 10:03 AM HGBA1C 7.4 (H) 02/28/2021 05:03 AM HGBA1C 7.0 (H) 01/20/2021 09:57 AM HGBA1C 6.6 (H) 10/31/2019 10:03 AM documented in this encounter Plan of Treatment Upcoming Encounters Date Type Specialty Care Team Description 10/21/2021 Office Visit Family Medicine Elías Gilbert MD [address] [place] [address] Health Maintenance Due Date Last Done Comments COVID-19 Vaccine (#1) 1950 CKD PHOS USE SMARTSET 14145 1962 Zoster Vaccines (1 of 2) 1994 *NEPHROLOGY REFERRAL DUE TO RESISTANT HTN 07/04/2021 DIABETES-EYE EXAM 07/16/2021 07/16/2020, 06/30/2019 DIABETES-FOOT EXAM 07/16/2021 07/16/2020, 07/15/2019 Depression Screening, Annual for Pts 12 and Over 07/16/2021 07/16/2020 DIABETES-HGBA1C EVERY 6 MONTHS 08/28/2021 02/28/2021, 01/20/2021, 10/06/2020, Additional history exists CKD GFR USE SMARTSET 35829 12/02/202106/04, 05/26/2021, 04/12/2021, Additional history exists Influenza Vaccine (FLU shot) (Season Ended) 2021 07/15/2019, 02/22/2016, 03/08/2015 DIABETES-URINE ALBUMIN/CREATININE EVERY 12 MONTHS 04/01/2022 04/01/2021, 07/16/2020, 06/06/2019 BASIC METABOLIC PANEL (BMP) FOR HTN YEARLY 06/04/2022 06/04/2021, 05/26/2021, 04/12/2021, Additional history exists CKD HGB USE SMARTSET 78503 06/04/202206/04, 06/04/2021, 05/26/2021, Additional history exists Dexa Scan 03/11/2026 03/11/2019 DTaP,Tdap,and Td Vaccines [...] disorder documented in this encounter Advance Directives Documents on File Type Date Recorded Patient Supervisor Felling Bucking 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 Advance Directives occurred with: Patient Care Teams Helper Maintenance Cleaning Relationship Specialty Start Date End Date Elías Gilbert MD [address] [id number] PCP - General Family Medicine 06/01/21 documented as of this encounter
--- OUTSIDE RECORDS SUMMARY | 2022-12-17 03:28 | External Medical Summary | Summary of Care ---
Author Name Unknown Organization [place] [address] Care Team Providers Care Stamping Press Operator Name Role Phone Elías Gilbert MD Primary Care Provider [phone] Reason for Visit * Reason Comments eRx-Medication Refill Encounter Details Date Type Department Care Team Description 08/18/2021 Refill [facility] [address] [place] [address] Baldomero Alexander Jr., DO [address] [facility] [place], [place] [id number] Allergies Active Allergy Reactions Severity Noted Date Comments Eggs Or Egg-Derived Products Diarrhea 021 documented as of this encounter (statuses as of 08/19/2021) Medications Medication Sig Dispensed Refills Start Date [...] 180 days 1 Each 1 07/16/2020 Active busPIRone HCl 10 MG Oral Tablet (Buspar)Indications :ADRIANA (generalized anxiety disorder) TAKE ONE TABLET BY MOUTH THREE TIMES A DAY NEEDED FOR ANXIETY 270 Tab 1 10/12/2020 Active Atorvastatin Calcium 80 MG Oral Tablet [...] Active Benzonatate 100 MG Oral Capsule (Tessalon Perlasia)Indications: Bronchitis, complicated Take by mouth 1 Capsule as needed in the morning AND 1 Capsule as needed at noon AND 1 Capsule as needed in the evening for Cough. Do not cut, crush, or chew.. 50 Capsule 1 06/30/2021 Active Metoprolol Tartrate 25 MG Oral Tablet (Lopressor) TAKE ONE-HALF TABLET BY MOUTH TWICE A DAY 30 Tablet 11 08/19/2021 Active Metoprolol Tartrate 25 MG Oral Tablet (Lopressor) Take 0.5 Tabs by mouth 2 times a day. 30 Tab 11 08/02/2020 2 Discontinued documented as of this encounter (statuses as of 08/19/2021) Active Problems Problem Noted Date Left heart [...] as of this encounter (statuses as of 08/19/2021) Resolved Problems Problem Noted Date Resolved Date [...] as of this encounter (statuses as of 08/19/2021) Immunizations Name Administration Dates Next Due DTaP [...] Telephone Encounter - Elías Gilbert MD - 08/19/2021 11:33 AM EDT Signed Prescriptions: Disp Refills Metoprolol Tartrate 25 MG Oral Tablet (Lop*30 Tab*11 Sig: TAKE ONE-HALF TABLET BY MOUTH TWICE A DAY Authorizing Provider: ELÍAS GILBERT * Telephone Encounter - Evonne Buckley [facility] - 08/19/2021 11:20 AM EDT Pending Prescriptions: Disp Refills Metoprolol Tartrate 25 MG Oral Tablet (Lop*30 Tab*11 Sig: TAKE ONE-HALF TABLET BY MOUTH TWICE A DAY * Telephone Encounter - Evonne Buckley [facility] - 08/19/2021 11:20 AM EDT Pending Prescriptions: Disp Refills Metoprolol Tartrate 25 MG Oral Tablet (Lop*30 Tab*11 Sig: TAKE ONE-HALF TABLET BY MOUTH TWICE A DAY Last Visit: 06/30/2021 (in office), Visit date not found (telemedicine) Next Visit: 10/21/2021 If no future appointments scheduled, and last appointment is greater than a year ago, please schedule patient for a follow-up appointment Last date the medication was ordered: 08/02/20 Pharmacy: [facility] [address]- [place] Is this request for a controlled substance?No [...] Office Visit Family Medicine Elías Gilbert MD [address] [address] Health Maintenance Due Date Last Done Comments COVID-19 Vaccine (1) 1950 CKD PHOS USE SMARTSET 15510 1962 Zoster Vaccines (1 of 2) 1994 *NEPHROLOGY REFERRAL DUE TO RESISTANT HTN 07/04/2021 DIABETES-EYE EXAM 07/16/2021 07/16/2020, 06/30/2019 DIABETES-FOOT EXAM 07/16/2021 07/16/2020, 07/15/2019 Depression Screening, Annual for Pts 12 and Over 07/16/2021 07/16/2020 DIABETES-HGBA1C EVERY 6 MONTHS 08/28/2021 02/28/2021, 01/20/2021, 10/06/2020, Additional history exists CKD GFR USE SMARTSET 63258 12/02/202106/04, 05/26/2021, 04/12/2021, Additional history exists Influenza Vaccine (FLU shot) (Season Ended) 2021 07/15/2019, 02/22/2016, 03/08/2015 DIABETES-URINE ALBUMIN/CREATININE EVERY 12 MONTHS 04/01/2022 04/01/2021, 07/16/2020, 06/06/2019 BASIC METABOLIC PANEL (BMP) FOR HTN YEARLY 06/04/2022 06/04/2021, 05/26/2021, 04/12/2021, Additional history exists CKD HGB USE SMARTSET 30211 06/04/202206/04, 06/04/2021, 05/26/2021, Additional history exists Dexa [...] Documents on File Type Date Recorded Patient Eeo Officer 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 Advance Directives occurred with: Patient Care Teams Stamping Press Operator Relationship Specialty Start Date End Date Elías Gilbert MD [address] [id number] PCP - General Family Medicine 06/01/21 documented as of this encounter
--- OUTSIDE RECORDS SUMMARY | 2022-12-17 03:28 | External Medical Summary ---
Author Name Unknown Address Unknown Organization K01:LABORATORY [facility] - [address] [place] [address] Laboratory Report Ordering Provider Test Date Status OFELIA GONSALEZ 10/21/2021 09:57:36 Final Observation Date Value Abnormality Reference (Units ) Status Magnesium 10/21/2021 09:57:36 2.0 1.5-2.6 (m g/dL) Final Performing Location LABORATORY [facility] - [address] [place] [address]
--- OUTSIDE RECORDS SUMMARY | 2022-12-17 03:28 | External Medical Summary | Summary of Care ---
Author Name Unknown Organization [facility] [place] [address] Care Team Providers Care Machine Packager Name Role Phone Elías Jade MD Primary Care Provider [phone] Reason for Visit * Reason Onset Date Comments Medication Question 08/20/2021 FYI 08/20/2021 Encounter Details Date Type Department Care Team Description 08/20/2021 Telephone [facility] [address] [facility] [place] [address] Elías Jade MD 21 [facility] [place] [id number] Medication Question; Allergies Active Allergy Reactions Severity Noted Date Comments Eggs Or Egg-Derived Products Diarrhea 021 documented as of this encounter (statuses as of 08/20/2021) Medications Medication Sig Dispensed Refills Start Date [...] Recomb Adjuvanted 50 MCG/0.5ML Intramuscular Suspension Reconstituted (Shingrix)Indications: Need for vaccination for zoster Inject 0.5 mL into a large muscle now and repeat dose in 60 to 180 days 1 Each 1 07/16/2020 Active busPIRone HCl 10 MG Oral Tablet (Buspar)Indications:GA D (generalized anxiety disorder) TAKE ONE TABLET BY MOUTH THREE TIMES A DAY NEEDED FOR ANXIETY 270 Tab 1 10/12/2020 Active Atorvastatin Calcium 80 MG Oral Tablet (Lipitor)Indications:D yslipidemia, goal LDL below 100 Take 1 Tablet by mouth at bedtime. 90 Tablet 3 03/02/2021 Active Escitalopram Oxalate 10 MG Oral Tablet (Lexapro)Indications:G AD (generalized anxiety disorder) Take 1 Tablet by mouth daily. 90 Tablet 1 03/07/2021 Active Furosemide 20 MG Oral Tablet (Lasix)Indications:Lef t heart failure (HCC) Take 1 Tablet by mouth daily. 30 Tablet 11 04/05/2021 Active Meclizine HCl 25 MG Oral Tablet (Antivert) Take 1 Tablet by mouth 3 times a day as needed for Dizziness. 30 Tablet 0 04/13/2021 Active metFORMIN HCl 1000 MG Oral Tablet (Glucophage)Indication s:Type 2 diabetes mellitus with stage 3a chronic kidney disease, without long-term current use of insulin (HCC) Take by mouth 1 Tablet 2 times a day with morning and evening meals . 180 Tablet 3 05/16/2021 Active Lisinopril 20 MG Oral Tablet (Prinivil)Indications: Stage 3a chronic kidney disease (HCC),HTN, goal below 140/90 Take by mouth 1 Tablet before bedtime. 90 Tablet 3 06/24/2021 Active predniSONE 10 MG Oral Tablet (Deltasone)Indications :Bronchitis, complicated Take 4 tabs for 2 days, 3 tabs for 2 days, 2 tabs for 2 days 1 tab for 2 days 20 Tablet 0 06/30/2021 Active ProAir HFA 108 (90 Base) MCG/ACT Inhalation Aerosol SolutionIndications:Br onchitis, complicated Inhale by mouth 2 Puffs every 4 hours as needed for Wheezing. 8 g 1 06/30/2021 Active Benzonatate 100 MG Oral Capsule (Tessalon Perlasia)Indications:Bro nchitis, complicated Take by mouth 1 Capsule as [...] 1 Capsule before bedtime. 0 08/12/2021 Active documented as of this encounter (statuses as of 08/20/2021) Active Problems Problem Noted Date Left heart [...] as of this encounter (statuses as of 08/20/2021) Resolved Problems Problem Noted Date Resolved Date [...] as of this encounter (statuses as of 08/20/2021) Immunizations Name Administration Dates Next Due DTaP [...] encounter Miscellaneous Notes * Telephone Encounter - Leah Jeronimo CPhT - 08/20/2021 10:34 AM EDT Pt called back and stated she forgot she did see non-[facility] manager technical training, Dr. Bajwa, last week, who provided Rx for neuropathy. FYI: Rx was for GABAPENTIN 300 mg Caps, 1 HS. Thank you, Leah Jeronimo CPhT Experienced Truck Driver [facility] 08/20/2021, 10:34 AM * Telephone Encounter - Leah Jeronimo CPhT - 08/20/2021 10:17 AM EDT Pt called stating she received Rx from pharmacy yesterday not belonging to her for gabapentin 300 mg 1 Caps HS, Rx'd by a Dr. Bajwa - non-[facility] provider. States she tried calling pharmacy with no answer. Called pharmacy for pt to inform them pt is not Rx'd gabapentin, that Rx must belong to another pt and given to this pt in error. RP stated they received Rx request from provider in pt's name. Pt states she has not seen any provider outside of [facility]. Informed [facility] to deactivate Rx. Thank you, Leah Jeronimo CPhT Experienced Truck Driver [facility] 08/20/2021, 10:19 AM documented in this encounter Plan of Treatment Upcoming Encounters Date Type Specialty Care Team Description 10/21/2021 Office Visit Family Medicine Elías Jade MD [address] [address] Health Maintenance Due Date Last Done Comments COVID-19 Vaccine (1) 1950 CKD PHOS USE SMARTSET 23622 1962 Zoster Vaccines (1 of 2) 1994 *NEPHROLOGY REFERRAL DUE TO RESISTANT HTN 07/04/2021 DIABETES-EYE EXAM 07/16/2021 07/16/2020, 06/30/2019 DIABETES-FOOT EXAM 07/16/2021 07/16/2020, 07/15/2019 Depression Screening, Annual for Pts 12 and Over 07/16/2021 07/16/2020 DIABETES-HGBA1C EVERY 6 MONTHS 08/28/2021 02/28/2021, 01/20/2021, 10/06/2020, Additional history exists CKD GFR USE SMARTSET 95232 12/02/202106/04, 05/26/2021, 04/12/2021, Additional history exists Influenza Vaccine (FLU shot) (Season Ended) 2021 07/15/2019, 02/22/2016, 03/08/2015 DIABETES-URINE ALBUMIN/CREATININE EVERY 12 MONTHS 04/01/2022 04/01/2021, 07/16/2020, 06/06/2019 BASIC METABOLIC PANEL (BMP) FOR HTN YEARLY 06/04/2022 06/04/2021, 05/26/2021, 04/12/2021, Additional history exists CKD HGB USE SMARTSET 30250 06/04/202206/04, 06/04/2021, 05/26/2021, Additional history exists Dexa [...] Documents on File Type Date Recorded Patient Assembler Filters 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 Directives occurred with: Patient Care Teams Machine Packager Relationship Specialty Start Date End Date Elías Jade MD [address] [address] PCP - General Family Medicine 06/01/21 documented as of this encounter
--- OUTSIDE RECORDS SUMMARY | 2022-12-17 03:28 | External Medical Summary ---
Author Name Unknown Address Unknown Organization K01:[place] [facility] [place] [address] [facility] [address] Laboratory Report Ordering Provider Test Date Status OFELIA GONSALEZ 10/21/2021 09:57:36 Final Observation Date Value Abnormality Reference (Units ) Status BUN 10/21/2021 09:57:36 17 6-20 (mg/dL) Final Creatinine 10/21/2021 09:57:36 1.3 Above high normal 0.5-1.0 (mg/dL) Final Glomerular filtration rate/1.73 sq M.predicted [Volume Rate/Area] in Serum, Plasma or Blood by Creatinine-based formula (CKD-EPI) 10/21/2021 09:57:36 43 Below low normal >=60 (mL/min) Final Performing Location [place] [facility] [place] [address] [facility] [address]
--- OUTSIDE RECORDS SUMMARY | 2022-12-17 03:28 | External Medical Summary | Summary of Care ---
Author Name Unknown Organization [facility] [place] [address] Care Team Providers Care Client Support Professional Name Role Phone Elías Jade MD Primary Care Provider [phone] Reason for Visit * Reason Onset Date Comments Medication Refill 09/14/2021 Encounter Details Date Type Department Care Team Description 09/14/2021 Refill [facility] [address] [place] [address] Elías Jade MD [address] [place] [address] Dyslipidemia, goal LDL below 100; Stage 3a chronic kidney disease (HCC); HTN, goal below 140/90; Type 2 diabetes mellitus with stage 3a chronic kidney disease, without long-term current use of insulin ([facility]) Allergies Active Allergy Reactions Severity Noted Date [...] Active Benzonatate 100 MG Oral Capsule (Tessalon Perles)Indications:Bro nchitis, complicated Take by mouth 1 Capsule [...] as of this encounter Miscellaneous Notes * Addendum Note - YUAN Rider - 09/14/2021 12:58 PM EDT Addended by: REID JACK on: 09/14/2021 12:58 PM Modules accepted: Orders * Telephone Encounter - YUAN Rider - 09/14/2021 12:57 PM EDT Please reroute RX to [facility] [address] [facility] [place] Pending Prescriptions: Disp Refills Atorvastatin Calcium 80 MG Oral Tablet (L*90 Tab*3 Sig: Take by mouth 1 Tablet before bedtime. Lisinopril 20 MG Oral Tablet (Prinivil) 90 Tab*3 Sig: Take by mouth 1 Tablet before bedtime. metFORMIN HCl 1000 MG Oral Tablet (Glucop*180 Ta*3 Sig: Take by mouth 1 Tablet 2 times a day with morning and evening meals . Last Visit: 06/30/2021 (in office), Visit date not found (telemedicine) 10/21/2021 If no future appointments scheduled, and last appointment is greater than a year ago, please schedule patient for a follow-up appointment Last date the medication was ordered: 03/02/2021, 05/16/2021, 06/24/2021 Patient Phone Numbers Labs: Lab Results Component [...] AM HGBA1C 6.6 (H) 10/31/2019 10:03 AM * Telephone Encounter - Delfina Juárez CPhT - 09/14/2021 11:10 AM EDT Pt calling to request refills for medications. I asked her to go over list of current meds, and shewas driving. She will call back to go over what meds she needs refills on. Thank you, Delfina Juárez CPhT Business Continuity Analyst [facility] 09/14/2021, 11:11 AM documented in this encounter Plan of Treatment Upcoming Encounters Date Type Specialty Care Team Description 10/21/2021 Office Visit Family Medicine Elías Jade MD [address] [address] Health Maintenance Due Date Last Done Comments COVID-19 Vaccine (#1) 1950 CKD PHOS USE SMARTSET 59536 1962 Zoster Vaccines (1 of 2) 1994 *NEPHROLOGY REFERRAL DUE TO RESISTANT HTN 07/04/2021 DIABETES-EYE EXAM 07/16/2021 07/16/2020, 06/30/2019 DIABETES-FOOT EXAM 07/16/2021 07/16/2020, 07/15/2019 Depression Screening, Annual for Pts 12 and Over 07/16/2021 07/16/2020 DIABETES-HGBA1C EVERY 6 MONTHS 08/28/2021 02/28/2021, 01/20/2021, 10/06/2020, Additional history exists CKD GFR USE SMARTSET 42058 12/02/202106/04, 05/26/2021, 04/12/2021, Additional history exists Influenza Vaccine (FLU shot) (Season Ended) 2021 07/15/2019, 02/22/2016, 03/08/2015 DIABETES-URINE ALBUMIN/CREATININE EVERY 12 MONTHS 04/01/2022 04/01/2021, 07/16/2020, 06/06/2019 BASIC METABOLIC PANEL (BMP) FOR HTN YEARLY 06/04/2022 06/04/2021, 05/26/2021, 04/12/2021, Additional history exists CKD HGB USE SMARTSET 23719 06/04/202206/04, 06/04/2021, 05/26/2021, Additional history exists Dexa [...] LDL below 100 Other and unspecified hyperlipidemia Stage 3a chronic kidney disease (HCC) HTN, goal below 140/90 Unspecified essential hypertension Type 2 diabetes mellitus with stage 3a chronic kidney disease, without long-term current use of insulin (HCC) documented in this encounter Advance Directives Documents on File Type Date Recorded Patient Utility Gelatin Maker 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 Advance Directives occurred with: Patient Care Teams Client Support Professional Relationship Specialty Start Date End Date Elías Jade MD [address] [facility] [address] [place] [id number] PCP - General Family Medicine 06/01/21 documented as of this encounter
--- OUTSIDE RECORDS SUMMARY | 2022-12-17 03:28 | External Medical Summary | Summary of Care ---
Author Name Unknown Organization [facility] [place] [address] Care Team Providers Care Employee Benefits Director Name Role Phone Elísa Jade MD Primary Care Provider [phone] Reason for Visit * Reason Onset Date Comments Med Request 09/15/2021 Encounter Details Date Type Department Care Team Description 09/15[facility]2021 [facility] [place] [address] Elías Jade MD 21 [place] [address] Med Request Allergies Active Allergy [...] * Telephone Encounter - KAHLIL Valera - 09/15/2021 11:19 AM EDT Per scan from 08/12, gabapentin was prescribed by saloonkeeper. Pt informed and will contact their office for a refill. * Telephone Encounter - Leah Perez CPhT - 09/15/2021 10:28 AM EDT Patient calling requesting the following medication below that is listed as "Historical". The following information was provided: Medication Name: Gabapentin Strength: 300mg Directions: HS Preferred Quantity: 90 Previous Prescriber: na Preferred Pharmacy: [facility] Please review and approve if appropriate. Thank you, Leah Perez CPhT Drywall Sander [facility] 09/15/2021,10:28 AM documented in this encounter Plan of Treatment Upcoming Encounters Date Type Specialty Care Team Description 10/21/2021 Office Visit Family Medicine Elías Jade MD 21 [place] [address] Health Maintenance Due Date Last Done Comments COVID-19 Vaccine (#1) 1950 CKD PHOS USE SMARTSET 22742 1962 Zoster Vaccines (1 of 2) 1994 *NEPHROLOGY REFERRAL DUE TO RESISTANT HTN 07/04/2021 DIABETES-EYE EXAM 07/16/2021 07/16/2020, 06/30/2019 DIABETES-FOOT EXAM 07/16/2021 07/16/2020, 07/15/2019 Depression Screening, Annual for Pts 12 and Over 07/16/2021 07/16/2020 DIABETES-HGBA1C EVERY 6 MONTHS 08/28/2021 02/28/2021, 01/20/2021, 10/06/2020, Additional history exists CKD GFR USE SMARTSET 27900 12/02/202106/04, 05/26/2021, 04/12/2021, Additional history exists Influenza Vaccine (FLU shot) (Season Ended) 2021 07/15/2019, 02/22/2016, 03/08/2015 DIABETES-URINE ALBUMIN/CREATININE EVERY 12 MONTHS 04/01/2022 04/01/2021, 07/16/2020, 06/06/2019 BASIC METABOLIC PANEL (BMP) FOR HTN YEARLY 06/04/2022 06/04/2021, 05/26/2021, 04/12/2021, Additional history exists CKD HGB USE SMARTSET 96522 06/04/202206/04, 06/04/2021, 05/26/2021, Additional history exists Dexa [...] Documents on File Type Date Recorded Patient Machine Packager 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 Advance Directives occurred with: Patient Care Teams Employee Benefits Director Relationship Specialty Start Date End Date Elías Jade MD [place] [address] PCP - General Family Medicine 06/01/21 documented as of this encounter
--- OUTSIDE RECORDS SUMMARY | 2022-12-17 03:28 | External Medical Summary | Summary of Care ---
Author Name Unknown Organization [facility] [place] [address] Care Team Providers Care Car Wrecker Name Role Phone Elías Gilbert MD Primary Care Provider [phone] [phone] Reason for Visit * Reason Onset Date Comments Medication Refill 09/14/2021 Encounter Details Date Type Department Care Team Description 09/14/2021 Refill [facility] 21 [facility] [place] [address] Elías Gilbert MD 21 [place] [address] Dyslipidemia, goal LDL below 100; Stage 3a chronic kidney disease (HCC); HTN, goal below 140/90; Type 2 diabetes mellitus with stage 3a chronic kidney disease, without long-term current use of insulin (HCC) Allergies Active Allergy Reactions Severity Noted Date Comments Eggs Or Egg-Derived Products Diarrhea 021 documented as of this encounter (statuses as of 09/16/2021) Medications Medication Sig Dispensed Refills Start Date [...] 180 days 1 Each 1 07/16/2020 Active Escitalopram Oxalate 10 MG Oral Tablet [...] for Dizziness. 30 Tablet 0 04/13/2021 Active predniSONE 10 MG Oral Tablet (Deltasone)Indicati [...] meals . 180 Tablet 2 09/16/2021 Active busPIRone HCl 10 MG Oral Tablet (Buspar)Indications :ADRIANA (generalized anxiety disorder) TAKE ONE TABLET BY MOUTH THREE TIMES A DAY NEEDED FOR ANXIETY 270 Tab 1 10/12/2020 09/15/2021 Discontinue d(Refill) Atorvastatin Calcium 80 MG Oral Tablet (Lipitor)Indication s:Dyslipidemia, goal LDL below 100 Take 1 Tablet by mouth at bedtime. 90 Tablet 3 03/02/2021 09/14/2021 Discontinue d(Refill) metFORMIN HCl 1000 MG Oral Tablet (Glucophage)Indicat ions:Type 2 diabetes mellitus with stage 3a chronic kidney disease, without long-term current use of insulin (HCC) Take by mouth 1 Tablet 2 times a day with morning and evening meals . 180 Tablet 3 05/16/2021 09/14/2021 Discontinue d(Refill) Lisinopril 20 MG Oral Tablet (Prinivil)Indicatio ns:Stage 3a chronic kidney disease (HCC),HTN, goal below 140/90 Take by mouth 1 Tablet before bedtime. 90 Tablet 3 06/24/2021 09/14/2021 Discontinue d(Refill) documented as of this encounter (statuses as of 09/16/2021) Active Problems Problem Noted Date Left heart [...] as of this encounter (statuses as of 09/16/2021) Resolved Problems Problem Noted Date Resolved Date [...] as of this encounter (statuses as of 09/16/2021) Immunizations Name Administration Dates Next Due DTaP [...] encounter Miscellaneous Notes * Addendum Note - Evonne Hdz RPh - 09/16/2021 12:10 PM EDT Addended by: EVONNE HDZ on: 09/16/2021 12:10 PM Modules accepted: Orders * Telephone Encounter - Evonne Hdz RPh - 09/16/2021 12:10 PM EDT Signed Prescriptions: Disp Refills Atorvastatin Calcium 80 MG Oral Tablet (Li*90 Tab*1 Sig: Take bymouth 1 Tablet before bedtime.Authorizing Provider: ELÍAS GILBERT User: EVONNE HDZ Lisinopril 20 MG Oral Tablet (Prinivil) 90 Tab*2 Sig: Take by mouth 1 Tablet before bedtime.Authorizing Provider: ELÍAS GILBERT User: EVONNE HDZ metFORMIN HCl 1000 MGOral Tablet (Glucoph*180 Ta*2 Sig: Take by mouth 1 Tablet 2 times a day with morning and evening meals .Authorizing Provider: ELÍAS GILBERT User: EVONNE HDZ * Addendum Note - YUAN Rider - 09/14/2021 12:58 PM EDT Addended by: REID JACK on: 09/14/2021 12:58 PM Modules accepted: Orders * Telephone Encounter - YUAN Rider - 09/14/2021 12:57 PM EDT Please reroute RX to [facility]-[address]- [place] Pending Prescriptions: Disp Refills Atorvastatin Calcium 80 [...] refills on. Thank you, Delfina Juárez CPhT Computer Customer Support Specialist [facility] 09/14/2021, 11:11 AM documented in this encounter Plan of Treatment Upcoming Encounters Date Type Specialty Care Team Description 10/21/2021 Office Visit Family Medicine Elías Gilbert MD 21 [place] [address] Health Maintenance Due Date Last Done Comments COVID-19 Vaccine (#1) 1950 CKD PHOS USE SMARTSET 28956 1962 Zoster Vaccines (1 of 2) 1994 *NEPHROLOGY REFERRAL DUE TO RESISTANT HTN 07/04/2021 DIABETES-EYE EXAM 07/16/2021 07/16/2020, 06/30/2019 DIABETES-FOOT EXAM 07/16/2021 07/16/2020, 07/15/2019 Depression Screening, Annual for Pts 12 and Over 07/16/2021 07/16/2020 DIABETES-HGBA1C EVERY 6 MONTHS 08/28/2021 02/28/2021, 01/20/2021, 10/06/2020, Additional history exists CKD GFR USE SMARTSET 68573 12/02/202106/04, 05/26/2021, 04/12/2021, Additional history exists Influenza Vaccine (FLU shot) (Season Ended) 2021 07/15/2019, 02/22/2016, 03/08/2015 DIABETES-URINE ALBUMIN/CREATININE EVERY 12 MONTHS 04/01/2022 04/01/2021, 07/16/2020, 06/06/2019 BASIC METABOLIC PANEL (BMP) FOR HTN YEARLY 06/04/2022 06/04/2021, 05/26/2021, 04/12/2021, Additional history exists CKD HGB USE SMARTSET 99514 06/04/202206/04, 06/04/2021, 05/26/2021, Additional history exists Dexa [...] Documents on File Type Date Recorded Patient Beauty Advisor 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 Advance Directives occurred with: Patient Care Teams Car Wrecker Relationship Specialty Start Date End Date Elías Gilbert MD [place] [address] PCP - General Family Medicine 06/01/21 documented as of this encounter
--- OUTSIDE RECORDS SUMMARY | 2022-12-17 03:28 | External Medical Summary | Summary of Care ---
Author Name Unknown Organization [facility] [place] [address] Care Team Providers Care Banquet Waiter/Waitress Name Role Phone Elías Jade MD Primary Care Provider [phone] Reason for Visit * Reason Onset Date Comments Medication Question 08/20/2021 FYI 08/20/2021 Encounter Details Date Type Department Care Team Description 08/20/2021 Telephone [facility] 21 [facility] [place] [address] Elías Jade MD 21 [facility] [place] [id number] Medication Question; Allergies Active Allergy Reactions Severity [...] 06/30/2021 Active Benzonatate 100 MG Oral Capsule (Tessalkatharine Rascon)Indications:Bro nchitis, complicated Take by mouth 1 Capsule as needed in the morning AND 1 Capsule as needed at noon AND 1 Capsule as needed in the evening for Cough. Do not cut, crush, or chew.. 50 Capsule 1 06/30/2021 Active Metoprolol Tartrate 25 MG Oral Tablet (Lopressor) TAKE ONE-HALF TABLET BY MOUTH TWICE A DAY 30 Tablet 11 08/19/2021 Active documented as of this encounter (statuses [...] and stated she forgot she did see non-Re[facility] clerk of scales, Dr. Bajwa, last week, who provided Rx for neuropathy. FYI: Rx was for GABAPENTIN 300 mg Caps, 1 HS. Thank you, Leah Jeronimo CPhT Personal Security Specialist [facility] 08/20/2021, 10:34 AM * Telephone Encounter - Leah Jeronimo CPhT - 08/20/2021 10:17 AM EDT Pt called stating she received Rx from pharmacy yesterday not belonging to her for gabapentin 300 mg 1 Caps HS, Rx'd by a Dr. Bajwa - [facility] provider. States she tried calling pharmacy with no answer. Called pharmacy for pt to inform them pt is not Rx'd gabapentin, that Rx must belong to another pt and given to this pt in error. RPh stated they received Rx request from provider in pt's name. Pt states she has not seen any provider outside of [facility]. Informed h to deactivate Rx. Thank you, Leah Jeronimo CPhT Personal Security Specialist [facility] 08/20/2021, 10:19 AM documented in this encounter Plan of Treatment Upcoming Encounters Date Type Specialty Care Team Description 10/21/2021 Office Visit Family Medicine Elías Jade MD [address] [place] [address] Health Maintenance Due Date Last Done Comments COVID-19 Vaccine (1) 1950 CKD PHOS USE SMARTSET 42044 1962 Zoster Vaccines (1 of 2) 1994 *NEPHROLOGY REFERRAL DUE TO RESISTANT HTN 07/04/2021 DIABETES-EYE EXAM 07/16/2021 07/16/2020, 06/30/2019 DIABETES-FOOT EXAM 07/16/2021 07/16/2020, 07/15/2019 Depression Screening, Annual for Pts 12 and Over 07/16/2021 07/16/2020 DIABETES-HGBA1C EVERY 6 MONTHS 08/28/2021 02/28/2021, 01/20/2021, 10/06/2020, Additional history exists CKD GFR USE SMARTSET 84030 12/02/202106/04, 05/26/2021, 04/12/2021, Additional history exists Influenza Vaccine (FLU shot) (Season Ended) 2021 07/15/2019, 02/22/2016, 03/08/2015 DIABETES-URINE ALBUMIN/CREATININE EVERY 12 MONTHS 04/01/2022 04/01/2021, 07/16/2020, 06/06/2019 BASIC METABOLIC PANEL (BMP) FOR HTN YEARLY 06/04/2022 06/04/2021, 05/26/2021, 04/12/2021, Additional history exists CKD HGB USE SMARTSET 98555 06/04/202206/04, 06/04/2021, 05/26/2021, Additional history exists Dexa [...] Documents on File Type Date Recorded Patient Creative Developer 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 Advance Directives occurred with: Patient Care Teams Banquet Waiter/Waitress Relationship Specialty Start Date End Date Elías Jade MD [place] [id number] PCP - General Family Medicine 06/01/21 documented as of this encounter
--- OUTSIDE RECORDS SUMMARY | 2022-12-17 03:28 | External Medical Summary ---
Author Name Unknown Address Unknown Organization K01:[facility]ATORY [facility] - [address] [place] [address] Laboratory Report Ordering Provider Test Date Status OFELIA GONSALEZ 10/21/2021 09:57:36 Final Observation Date Value Abnormality Reference (Units ) Status HbA1C 10/21/2021 09:57:36 6.9 Above high normal 4. 0-5.6 (%) Final Performing Location [facility] - [address] [place] [address]
--- OUTSIDE RECORDS SUMMARY | 2022-12-17 03:28 | External Medical Summary | Summary of Care ---
Author Name Unknown Organization [facility] [place] [address] Care Team Providers Care Hims Clerk Name Role Phone Elías Jade MD Primary Care Provider [phone] Reason for Visit * Reason Onset Date Comments Med Request 09/15/2021 Encounter Details Date Type Department Care Team Description 09/15/2021 [facility] [place] [address] Elías Jade MD 21 [place] [address] Med Request Allergies Active Allergy [...] Miscellaneous Notes * Telephone Encounter - Leah Perez CPhT - 09/15/2021 10:28 AM EDT Patient calling requesting the following medication below that is listed as "Historical". The following information was provided: Medication Name: Gabapentin Strength: 300mg Directions: HS Preferred Quantity: 90 Previous Prescriber: na Preferred Pharmacy: [facility] Please review and approve if appropriate. Thank you, Leah Perez CPhT Car Hiker [facility] 09/15/2021,10:28 AM documented in this encounter Plan of Treatment Upcoming Encounters Date Type Specialty Care Team Description 10/21/2021 Office Visit Family Medicine Elías Jade MD 21 [facility] [place] [address] Health Maintenance Due Date Last Done Comments COVID-19 Vaccine (#1) 1950 CKD PHOS USE SMARTSET 74409 1962 Zoster Vaccines (1 of 2) 1994 *NEPHROLOGY REFERRAL DUE TO RESISTANT HTN 07/04/2021 DIABETES-EYE EXAM 07/16/2021 07/16/2020, 06/30/2019 DIABETES-FOOT EXAM 07/16/2021 07/16/2020, 07/15/2019 Depression Screening, Annual for Pts 12 and Over 07/16/2021 07/16/2020 DIABETES-HGBA1C EVERY 6 MONTHS 08/28/2021 02/28/2021, 01/20/2021, 10/06/2020, Additional history exists CKD GFR USE SMARTSET 29174 12/02/202106/04, 05/26/2021, 04/12/2021, Additional history exists Influenza Vaccine (FLU shot) (Season Ended) 2021 07/15/2019, 02/22/2016, 03/08/2015 DIABETES-URINE ALBUMIN/CREATININE EVERY 12 MONTHS 04/01/2022 04/01/2021, 07/16/2020, 06/06/2019 BASIC METABOLIC PANEL (BMP) FOR HTN YEARLY 06/04/2022 06/04/2021, 05/26/2021, 04/12/2021, Additional history exists CKD HGB USE SMARTSET 86504 06/04/202206/04, 06/04/2021, 05/26/2021, Additional history exists Dexa [...] Documents on File Type Date Recorded Patient Brush Hand 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 Advance Directives occurred with: Patient Care Teams Hims Clerk Relationship Specialty Start Date End Date Elías Jade MD [place] [id number] PCP - General Family Medicine 06/01/21 documented as of this encounter
--- OUTSIDE RECORDS SUMMARY | 2022-12-17 03:28 | External Medical Summary | Summary of Care ---
Author Name Unknown Organization [facility] [place] [address] Care Team Providers Care Manager Academic Name Role Phone Elías Jade MD Primary Care Provider [phone] Reason for Visit * Reason Onset Date Comments Medication Refill 09/14/2021 Encounter Details Date Type Department Care Team Description 09/14/2021 Refill [facility] 21 [place] [address] Elías Jade MD 21 [place] [address] Dyslipidemia, goal LDL below 100; Stage 3a chronic kidney disease (HCC); HTN, goal below 140/90; Type 2 diabetes mellitus with stage 3a chronic kidney disease, without long-term current use of insulin ([facility]) Allergies Active Allergy Reactions Severity Noted Date Comments Eggs Or Egg-Derived Products Diarrhea 021 documented as of this encounter (statuses as of 09/14/2021) Medications Medication Sig Dispensed Refills Start Date [...] as of this encounter (statuses as of 09/14/2021) Active Problems Problem Noted Date Left heart [...] as of this encounter (statuses as of 09/14/2021) Resolved Problems Problem Noted Date Resolved Date [...] as of this encounter (statuses as of 09/14/2021) Immunizations Name Administration Dates Next Due DTaP [...] PM EDT Please reroute RX to [facility] [address] [facility] [place] Pending Prescriptions: Disp Refills Atorvastatin Calcium [...] refills on. Thank you, Delfina Juárez CPhT Bottom Turning Lathe Tender [facility] 09/14/2021, 11:11 AM documented in this encounter Plan of Treatment Upcoming Encounters Date Type Specialty Care Team Description 10/21/2021 Office Visit Family Medicine Elías Jade MD 21 [place] [address] Health Maintenance Due Date Last Done Comments COVID-19 Vaccine (1) 1950 CKD PHOS USE SMARTSET 48497 1962 Zoster Vaccines (1 of 2) 1994 *NEPHROLOGY REFERRAL DUE TO RESISTANT HTN 07/04/2021 DIABETES-EYE EXAM 07/16/2021 07/16/2020, 06/30/2019 DIABETES-FOOT EXAM 07/16/2021 07/16/2020, 07/15/2019 Depression Screening, Annual for Pts 12 and Over 07/16/2021 07/16/2020 DIABETES-HGBA1C EVERY 6 MONTHS 08/28/2021 02/28/2021, 01/20/2021, 10/06/2020, Additional history exists CKD GFR USE SMARTSET 67995 12/02/202106/04, 05/26/2021, 04/12/2021, Additional history exists Influenza Vaccine (FLU shot) (Season Ended) 2021 07/15/2019, 02/22/2016, 03/08/2015 DIABETES-URINE ALBUMIN/CREATININE EVERY 12 MONTHS 04/01/2022 04/01/2021, 07/16/2020, 06/06/2019 BASIC METABOLIC PANEL (BMP) FOR HTN YEARLY 06/04/2022 06/04/2021, 05/26/2021, 04/12/2021, Additional history exists CKD HGB USE SMARTSET 43812 06/04/202206/04, 06/04/2021, 05/26/2021, Additional history exists Dexa [...] Documents on File Type Date Recorded Patient Polisher Aluminum 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 Advance Directives occurred with: Patient Care Teams Manager Academic Relationship Specialty Start Date End Date Elías Jade MD 21 [facility] [place] [id number] PCP - General Family Medicine 06/01/21 documented as of this encounter
--- OUTSIDE RECORDS SUMMARY | 2022-12-17 03:28 | External Medical Summary | Summary of Care ---
Author Name Unknown Organization [facility] [place] [address] Care Team Providers Care Virtual Customer Assistant Name Role Phone Elías Gilbert MD Primary Care Provider [phone] Reason for Visit * Reason Onset Date Comments Medication Refill 09/15/2021 Encounter Details Date Type Department Care Team Description 09/15/2021 Refill [facility] 21 [facility] [place] [address] Elías Gilbert MD 21 [place] [address] Left heart failure (HCC) Allergies Active Allergy Reactions Severity Noted Date Comments Eggs Or Egg-Derived Products Diarrhea 021 documented as of this encounter (statuses as of 09/18/2021) Medications Medication Sig Dispensed Refills Start Date [...] mouth daily. 90 Tablet 1 03/07/2021 Active Meclizine HCl 25 MG Oral Tablet [...] or chew.. 50 Capsule 1 06/30/2021 Active Gabapentin 300 MG Oral Capsule (Neurontin) 1 Capsule before bedtime. 0 08/12/2021 Active Metoprolol Tartrate 25 MG Oral Tablet (Lopressor) TAKE ONE-HALF TABLET BY MOUTH TWICE A DAY 90 Tablet 3 09/18/2021 Active Furosemide 20 MG Oral Tablet (Lasix)Indications: Left heart failure (HCC) Take by mouth 1 Tablet in the morning. 90 Tablet 1 09/18/2021 Active Furosemide 20 MG Oral Tablet (Lasix)Indications: Left heart failure (HCC) Take 1 Tablet by mouth daily. 30 Tablet 11 04/05/2021 09/15/2021 Discontinue d(Refill) Metoprolol Tartrate 25 MG Oral Tablet (Lopressor) TAKE ONE-HALF TABLET BY MOUTH TWICE A DAY 30 Tablet 11 08/19/2021 09/15/2021 Discontinue d(Refill) documented as of this encounter (statuses as of 09/18/2021) Active Problems Problem Noted Date Left heart [...] as of this encounter (statuses as of 09/18/2021) Resolved Problems Problem Noted Date Resolved Date [...] as of this encounter (statuses as of 09/18/2021) Immunizations Name Administration Dates Next Due DTaP [...] encounter Miscellaneous Notes * Telephone Encounter - Aisha Delong RPh - 09/18/2021 1:32 PM EDT Signed Prescriptions: Disp Refills Metoprolol Tartrate 25 MG Oral Tablet (Lop*90 Tab*3 Sig: TAKE ONE-HALF TABLET BY MOUTH TWICE A DAY Authorizing Provider: ELÍAS GILBERT Ordering User: AISHA DELONG Furosemide 20 MG Oral Tablet (Lasix) 90 Tab*1 Sig: Take by mouth 1 Tablet in the morning. Authorizing Provider: ELÍAS GILBERT Ordering User: AISHA DELONG * Telephone Encounter - Leah Perez CPhT - 09/15/2021 10:21 AM EDT Please reroute RX to [facility] [address] [facility] [place] Pending Prescriptions: Disp Refills Metoprolol Tartrate 25 MG Oral Tablet (Lo*90 Tab*3 Sig: TAKE ONE-HALF TABLET BY MOUTH TWICE A DAY Furosemide 20 MG Oral Tablet (Lasix) 90 Tab*2 Sig: Take by mouth 1 Tablet in the morning. Last Visit: 06/30/2021 (in office), Visit date not found (telemedicine) 10/21/2021 If no future appointments scheduled, and last appointment is greater than a year ago, please schedule patient for a follow-up appointment Last date the medication was ordered: 08/19/2021,04/05/2021 Patient Phone Numbers Labs: Lab Results Component [...] Visit Family Medicine Elías Gilbert MD 21 [facility] [place] [address] Health Maintenance Due Date Last Done Comments COVID-19 Vaccine (#1) 1950 CKD PHOS USE SMARTSET 13587 1962 Zoster Vaccines (1 of 2) 1994 *NEPHROLOGY REFERRAL DUE TO RESISTANT HTN 07/04/2021 DIABETES-EYE EXAM 07/16/2021 07/16/2020, 06/30/2019 DIABETES-FOOT EXAM 07/16/2021 07/16/2020, 07/15/2019 Depression Screening, Annual for Pts 12 and Over 07/16/2021 07/16/2020 DIABETES-HGBA1C EVERY 6 MONTHS 08/28/2021 02/28/2021, 01/20/2021, 10/06/2020, Additional history exists CKD GFR USE SMARTSET 59676 12/02/202106/04, 05/26/2021, 04/12/2021, Additional history exists Influenza Vaccine (FLU shot) (Season Ended) 2021 07/15/2019, 02/22/2016, 03/08/2015 DIABETES-URINE ALBUMIN/CREATININE EVERY 12 MONTHS 04/01/2022 04/01/2021, 07/16/2020, 06/06/2019 BASIC METABOLIC PANEL (BMP) FOR HTN YEARLY 06/04/2022 06/04/2021, 05/26/2021, 04/12/2021, Additional history exists CKD HGB USE SMARTSET 38010 06/04/202206/04, 06/04/2021, 05/26/2021, Additional history exists Dexa [...] failure documented in this encounter Advance Directives Documents on File Type Date Recorded Patient Manager Investigations 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 Advance Directives occurred with: Patient Care Teams Virtual Customer Assistant Relationship Specialty Start Date End Date Elías Gilbert MD 21 [facility] [place] [address] PCP - General Family Medicine 06/01/21 documented as of this encounter
--- OUTSIDE RECORDS SUMMARY | 2022-12-17 03:28 | External Medical Summary | Summary of Care ---
Author Name Unknown Organization [facility] [place] [address] Care Team Providers Care Peoplesoft Developer Name Role Phone Elías Jade MD Primary Care Provider [phone] Reason for Visit * Reason Onset Date Comments Medication Refill 09/14/2021 Encounter Details Date Type Department Care Team Description 09/14/[address] [facility] ([place], [place]) [address] [place] [address] Elías Jade MD [address] [place] [address] Allergies Active Allergy Reactions Severity [...] encounter Miscellaneous Notes * Telephone Encounter - Delfina Juárez CPhT - 09/14/2021 11:10 AM EDT Pt calling to request refills for medications. I asked her to go over list of current meds, and shewas driving. She will call back to go over what meds she needs refills on. Thank you, Delfina Juárez CPhT Card Cutter Helper [facility] 09/14/2021, 11:11 AM documented in this encounter Plan of Treatment Upcoming Encounters Date Type Specialty Care Team Description 10/21/2021 Office Visit Family Medicine YasmanyElías MD [address] [id number] Health Maintenance Due Date Last Done Comments COVID-19 Vaccine (1) 1950 CKD PHOS USE SMARTSET 37057 1962 Zoster Vaccines (1 of 2) 1994 *NEPHROLOGY REFERRAL DUE TO RESISTANT HTN 07/04/2021 DIABETES-EYE EXAM 07/16/2021 07/16/2020, 06/30/2019 DIABETES-FOOT EXAM 07/16/2021 07/16/2020, 07/15/2019 Depression Screening, Annual for Pts 12 and Over 07/16/2021 07/16/2020 DIABETES-HGBA1C EVERY 6 MONTHS 08/28/2021 02/28/2021, 01/20/2021, 10/06/2020, Additional history exists CKD GFR USE SMARTSET 33508 12/02/202106/04, 05/26/2021, 04/12/2021, Additional history exists Influenza Vaccine (FLU shot) (Season Ended) 2021 07/15/2019, 02/22/2016, 03/08/2015 DIABETES-URINE ALBUMIN/CREATININE EVERY 12 MONTHS 04/01/2022 04/01/2021, 07/16/2020, 06/06/2019 BASIC METABOLIC PANEL (BMP) FOR HTN YEARLY 06/04/2022 06/04/2021, 05/26/2021, 04/12/2021, Additional history exists CKD HGB USE SMARTSET 49107 06/04/202206/04, 06/04/2021, 05/26/2021, Additional history exists Dexa [...] Documents on File Type Date Recorded 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
--- OUTSIDE RECORDS SUMMARY | 2022-12-17 03:29 | External Medical Summary ---
Author Name Unknown Address Unknown Organization K1F:[facility] [address] [place] [address] Laboratory Report Ordering Provider Test Date Status KIKI FUENTES 06/04/2021 06:30:07 Fin al Observation Date Value Abnormality Reference (Units ) Status SYNC LEUKOCYTES IN BLOOD BY AUTOMATED COUNT 06/04/2021 06:30:07 3.89 Below low normal 4.00-10.80 (K/uL) Final Segs 06/04/2021 06:30:07 63.2 40.0-75.0 (%) Final Lymphs % 06/04/2021 06:30:07 25.4 18.0-42.0 (%) Final Monos 06/04/2021 06:30:07 8.5 1.0-11.0 (%) Final Eosinophils 06/04/2021 06:30:07 1.8 0.0-6.0 (%) Final Basos 06/04/2021 06:30:07 0.3 0.0-2.0 (%) Final Immature Granulocyte, Percent 06/04/2021 06:30:07 0.8 0.0-2.0 (%) Final Absolute Segs 06/04/2021 06:30:07 2.46 1.80-7.70 (K/uL) Final Lymphs, absolute 06/04/2021 06:30:07 0.99 Below low normal 1.00-4.80 (K/ul) Final Monos, Abs 06/04/2021 06:30:07 0.33 0.00-1.10 (K/uL) Final Eos, Abs 06/04/2021 06:30:07 0.07 0.00-0.70 (K/uL) Final Basos, Abs 06/04/2021 06:30:07 0.01 0.00-0.20 (K/uL) Final Immature Granulocytes, Number 06/04/2021 06:30:07 0.03 0.00-0.20 (K/uL) Final Performing Location [facility] - [facility] [address] [place] [address]
--- OUTSIDE RECORDS SUMMARY | 2022-12-17 03:29 | External Medical Summary | Summary of Care ---
Author Name Unknown Organization [facility] [place] [address] Care Team Providers Care Survey Interviewer Name Role Phone Elías Jade MD Primary Care Provider [phone] Reason for Visit * Reason Onset Date Comments Test Results Imaging Study 06/30/202107/01 Encounter Details Date Type Department Care Team Description [facility] [address] [place] [address] Jalen Hanley PA-C [email or web address] [place] [address] Test Results Imaging Study (07/01) Allergies Active Allergy Reactions Severity Noted Date Comments Eggs Or Egg-Derived Products Diarrhea 021 documented as of this encounter (statuses as of 07/01/2021) Medications Medication Sig Dispensed Refills Start Date [...] Recomb Adjuvanted 50 MCG/0.5ML Intramuscular Suspension Reconstituted (Shingrix)Indications :Need for vaccination for zoster Inject 0.5 mL into a large muscle now and repeat dose in 60 to 180 days 1 Each 1 07/16/2020 Active Metoprolol Tartrate 25 MG Oral Tablet (Lopressor) Take 0.5 Tabs by mouth 2 times a day. 30 Tab 11 08/02/2020 Active busPIRone HCl 10 MG Oral Tablet (Buspar)Indications:G AD (generalized anxiety disorder) TAKE ONE TABLET BY MOUTH THREE TIMES A DAY NEEDED FOR ANXIETY 270 Tab 1 10/12/2020 Active Atorvastatin Calcium 80 MG Oral Tablet (Lipitor)Indications: Dyslipidemia, goal LDL below 100 Take 1 Tablet by mouth at bedtime. 90 Tablet 3 03/02/2021 Active Escitalopram Oxalate 10 MG Oral Tablet (Lexapro)Indications: ADRIANA (generalized anxiety disorder) Take 1 Tablet by mouth daily. 90 Tablet 1 03/07/2021 Active Furosemide 20 MG Oral Tablet (Lasix)Indications:Le ft heart failure (HCC) Take 1 Tablet by mouth daily. 30 Tablet 11 04/05/2021 Active Meclizine HCl 25 MG Oral Tablet (Antivert) Take 1 Tablet by mouth 3 times a day as needed for Dizziness. 30 Tablet 0 04/13/2021 Active metFORMIN HCl 1000 MG Oral Tablet (Glucophage)Indicatio ns:Type 2 diabetes mellitus with stage 3a chronic kidney disease, without long-term current use of insulin (HCC) Take by mouth 1 Tablet 2 times a day with morning and evening meals . 180 Tablet 3 05/16/2021 Active Lisinopril 20 MG Oral Tablet (Prinivil)Indications :Stage 3a chronic kidney disease (HCC),HTN, goal below 140/90 Take by mouth 1 Tablet before bedtime. 90 Tablet 3 06/24/2021 Active Amoxicillin-Pot Clavulanate 875-125 MG Oral Tablet (Augmentin)Indication s:Bronchitis, complicated Take by mouth 1 Tablet in the morning AND 1 Tablet before bedtime. Do all this for 10 days. 20 Tablet 0 06/30/2021 07/10/2021 Active predniSONE 10 MG Oral Tablet (Deltasone)Indication s:Bronchitis, complicated Take 4 tabs for 2 days, 3 tabs for 2 days, 2 tabs for 2 days 1 tab for 2 days 20 Tablet 0 06/30/2021 Active ProAir HFA 108 (90 Base) MCG/ACT Inhalation Aerosol SolutionIndications:B ronchitis, complicated Inhale by mouth 2 Puffs every 4 hours as needed for Wheezing. 8 g 1 06/30/2021 Active Benzonatate 100 MG Oral Capsule (Tessalon Perles)Indications:Br onchitis, complicated Take by mouth 1 Capsule as needed in the morning AND 1 Capsule as needed at noon AND 1 Capsule as needed in the evening for Cough. Do not cut, crush, or chew.. 50 Capsule 1 06/30/2021 Active documented as of this encounter (statuses as of 07/01/2021) Active Problems Problem Noted Date Left heart [...] as of this encounter (statuses as of 07/01/2021) Resolved Problems Problem Noted Date Resolved Date [...] as of this encounter (statuses as of 07/01/2021) Immunizations Name Administration Dates Next Due DTaP [...] Miscellaneous Notes * Telephone Encounter - MANDY Nuñez - 07/01/2021 9:19 AM EDT Pt notified. * Telephone Encounter - Sharon Parsons RN - 07/01/2021 9:14 AM EDT Telephone call made to patient's number. No answer. Voicemail has not been set up and unable to leave a message. Sharon Parsons RN * Telephone Encounter - Jalen Hanley PA-C - 06/30/2021 4:37 PM EDT No evidence of pneumonia or acute changes on her chest x-ray. Please advise. documented in this encounter Plan of Treatment Upcoming Encounters Date Type Specialty Care Team Description 10/21/2021 Office Visit Family Medicine Elías Jade MD [address] [address] Health Maintenance Due Date Last Done Comments COVID-19 Vaccine (1) 1950 CKD PHOS USE SMARTSET 34839 1962 Zoster Vaccines (1 of 2) 1994 Influenza Vaccine (FLU shot) (#1) 2020 07/15/2019, 02/22/2016, 03/08/2015 DIABETES-EYE EXAM 07/16/2021 07/16/2020, 06/30/2019 DIABETES-FOOT EXAM 07/16/2021 07/16/2020, 07/15/2019 Depression Screening, Annual for Pts 12 and Over 07/16/2021 07/16/2020 DIABETES-HGBA1C EVERY 6 MONTHS 08/28/2021 02/28/2021, 01/20/2021, 10/06/2020, Additional history exists CKD GFR USE SMARTSET 58726 12/02/202106/04, 05/26/2021, 04/12/2021, Additional history exists DIABETES-URINE ALBUMIN/CREATININE EVERY 12 MONTHS 04/01/2022 04/01/2021, 07/16/2020, 06/06/2019 BASIC METABOLIC PANEL (BMP) FOR HTN YEARLY 06/04/2022 06/04/2021, 05/26/2021, 04/12/2021, Additional history exists CKD HGB USE SMARTSET 41246 06/04/202206/04, 06/04/2021, 05/26/2021, Additional history exists Dexa [...] Documents on File Type Date 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
--- OUTSIDE RECORDS SUMMARY | 2022-12-17 03:29 | External Medical Summary ---
Author Name Unknown Address Unknown Organization K1F:[facility] - [address] [place] [address] Laboratory Report Ordering Provider Test Date Status KIKI FUENTES 06/04/2021 06:30:08 Fin al Observation Date Value Abnormality Reference (Units ) Status Troponin T 06/04/2021 06:30:08 23 Above high normal < =14 (ng/L) Final Performing Location [facility] - [address] [place] [address]
--- OUTSIDE RECORDS SUMMARY | 2022-12-17 03:29 | External Medical Summary ---
Author Name Unknown Address Unknown Organization K1F:[facility] - [address] [place] [address] Laboratory Report Ordering Provider Test Date Status KIKI FUENTES 06/04/2021 07:17:25 Fin al Observation Date Value Abnormality Reference (Units ) Status Color of Urine by Auto 06/04/2021 07:17:25 Yellow Light Yellow, Yellow, Dark Yellow Final Clarity, Urine 06/04/2021 07:17:25 Clear Clear Final Glucose [Mass/volume] in Urine by Automated test strip 06/04/2021 07:17:25 Negative Negative (mg/dL) Final Bilirubin.total [Presence] in Urine by Automated test strip 06/04/2021 07:17:25 Negative Negative Final Ketones [Mass/volume] in Urine by Automated test strip 06/04/2021 07:17:25 Negative Negative (mg/dL) Final Specific gravity, Urine 06/04/2021 07:17:25 1.008 1.003-1.030 Final Hemoglobin [Presence] in Urine by Automated test strip 06/04/2021 07:17:25 Trace Abnormal Negative Final pH, Urine 06/04/2021 07:17:25 6.0 5.0-7.5 (Units) Final Protein [Mass/volume] in Urine by Automated test strip 06/04/2021 07:17:25 Negative Negative (mg/dL) Final Urobilinogen [Mass/volume] in Urine by Automated test strip 06/04/2021 07:17:25 0.2 0.2, 1.0 (mg/dL) Final Nitrite [Presence] in Urine by Automated test strip 06/04/2021 07:17:25 Negative Negative Final Leukocyte esterase [Presence] in Urine by Automated test strip 06/04/2021 07:17:25 Negative Negative Final Performing Location [facility] - [address] [place] [address]
--- OUTSIDE RECORDS SUMMARY | 2022-12-17 03:29 | External Medical Summary ---
Author Name Unknown Address Unknown Organization K1F:[facility] - [address] [place] [address] Laboratory Report Ordering Provider Test Date Status RUSTAM SANCHEZ 05/26/2021 02:22:34 Final Observation Date Value Abnormality Reference (Units ) Status WBC, Total 05/26/2021 02:22:34 5.33 4.00-10.80 (K/uL) Final RBC 05/26/2021 02:22:34 4.23 3.85-5.15 (M/uL) Final Hemoglobin 05/26/2021 02:22:34 11.1 Below low normal 12.0-15.3 (g/dL) Final HCT 05/26/2021 02:22:34 37.0 36.0-45.2 (%) Final MCV 05/26/2021 02:22:34 87.5 81.5-97.5 (fL) Final MCH 05/26/2021 02:22:34 26.2 Below low normal 27.0-34.0 (pg) Final MCHC 05/26/2021 02:22:34 30.0 Below low normal 32.0-36.0 (g/dL) Final RDW 05/26/2021 02:22:34 14.9 11.5-15.5 (%) Final MPV 05/26/2021 02:22:34 10.1 6.6-11.1 (fL) Final Nucleated erythrocytes/100 leukocytes [Ratio] in Blood by Automated count 05/26/2021 02:22:34 0 <=0 (/100 WBCs) Final Platelets 05/26/2021 02:22:34 185 140-400 (K/uL) Final Performing Location [facility] - [address] [place] [address]
--- OUTSIDE RECORDS SUMMARY | 2022-12-17 03:29 | External Medical Summary ---
Author Name Unknown Address Unknown Organization K1F:[facility] - [address] [place] [address] Laboratory Report Ordering Provider Test Date Status YVETTEKIKI CASTILLOLAS 06/04/2021 07:17:25 Fin al Observation Date Value Abnormality Reference (Units ) Status RBC, Urine 06/04/2021 07:17:25 0-2 0-2 (/HPF) Final WBC, Urine 06/04/2021 07:17:25 0-2 0-2 (/HPF) Final Bacteria [#/area] in Urine sediment by Microscopy high power field 06/04/2021 07:17:25 0-25 0-25 (/HPF) Final Performing Location [facility] - [address] [place] [address]
--- OUTSIDE RECORDS SUMMARY | 2022-12-17 03:29 | External Medical Summary ---
Author Name Unknown Address Unknown Organization : Laboratory Report Ordering Provider Test Date Status NO,UNKNOWN 06/04/2021 05:21:19 Final Observation Date Value Abnormality Reference (Units ) Status Glucose Point of Care 06/04/2021 05:21:19 109 70-120 (mg/dL) Final Performing Location
--- OUTSIDE RECORDS SUMMARY | 2022-12-17 03:29 | External Medical Summary ---
Author Name Unknown Address Unknown Organization K1F:[facility] - [address] [place] [address] Laboratory Report Ordering Provider Test Date Status KIKI FUENTES 06/04/2021 06:30:09 Fin al Observation Date Value Abnormality Reference (Units ) Status BUN 06/04/2021 06:30:09 12 6-20 (mg/dL) Final Creatinine 06/04/2021 06:30:09 1.2 Above high normal 0.5-1.0 (mg/dL) Final Glomerular filtration rate/1.73 sq M.predicted [Volume Rate/Area] in Serum, Plasma or Blood by Creatinine-based formula (CKD-EPI) 06/04/2021 06:30:09 46 Below low normal >=60 (mL/min) Final Performing Location [facility] - [address] [place] [address]
--- OUTSIDE RECORDS SUMMARY | 2022-12-17 03:29 | External Medical Summary | Summary of Care ---
Author Name Unknown Organization [facility] [place] [address] Care Team Providers Care University Archivist Name Role Phone Elías Jade MD Primary Care Provider [phone] Reason for Visit * Reason Onset Date Comments Advice 06/27/2021 continuing cough Encounter Details Date Type Department Care Team Description 06/27/2021 Telephone [facility] [address] [facility] [place] [address] Elías Jade MD [address] [place] [address] Advice (continuing cough) Allergies Active Allergy Reactions Severity Noted Date Comments Eggs Or Egg-Derived Products Diarrhea 021 documented as of this encounter (statuses as of 06/28/2021) Medications Medication Sig Dispensed Refills Start Date [...] Recomb Adjuvanted 50 MCG/0.5ML Intramuscular Suspension Reconstituted (Shingrix)Indication s:Need for vaccination for zoster Inject 0.5 mL into a large muscle now and repeat dose in 60 to 180 days 1 Each 1 07/16/2020 Active Additional Information Patient not taking. Reported on 02/28/2021 Metoprolol Tartrate 25 MG Oral Tablet (Lopressor) Take 0.5 Tabs by mouth 2 times a day. 30 Tab 11 08/02/2020 Active busPIRone HCl 10 MG Oral Tablet (Buspar)Indications: ADRIANA (generalized anxiety disorder) TAKE ONE TABLET BY MOUTH THREE TIMES A DAY NEEDED FOR ANXIETY 270 Tab 1 10/12/2020 Active Atorvastatin Calcium 80 MG Oral Tablet (Lipitor)Indications :Dyslipidemia, goal LDL below 100 Take 1 Tablet by mouth at bedtime. 90 Tablet 3 03/02/2021 Active Escitalopram Oxalate 10 MG Oral Tablet (Lexapro)Indications :ADRIANA (generalized anxiety disorder) Take 1 Tablet by mouth daily. 90 Tablet 1 03/07/2021 Active Furosemide 20 MG Oral Tablet (Lasix)Indications:L eft heart failure (HCC) Take 1 Tablet by mouth daily. 30 Tablet 11 04/05/2021 Active Meclizine HCl 25 MG Oral Tablet (Antivert) Take 1 Tablet by mouth 3 times a day as needed for Dizziness. 30 Tablet 0 04/13/2021 Active metFORMIN HCl 1000 MG Oral Tablet (Glucophage)Indicati ons:Type 2 diabetes mellitus with stage 3a chronic kidney disease, without long-term current use of insulin (HCC) Take by mouth 1 Tablet 2 times a day with morning and evening meals . 180 Tablet 3 05/16/2021 Active Lisinopril 20 MG Oral Tablet (Prinivil)Indication s:Stage 3a chronic kidney disease (HCC),HTN, goal below 140/90 Take by mouth 1 Tablet before bedtime. 90 Tablet 3 06/24/2021 Active documented as of this encounter (statuses as of 06/28/2021) Active Problems Problem Noted Date Left heart [...] as of this encounter (statuses as of 06/28/2021) Resolved Problems Problem Noted Date Resolved Date [...] as of this encounter (statuses as of 06/28/2021) Immunizations Name Administration Dates Next Due DTaP [...] encounter Miscellaneous Notes * Telephone Encounter - Hedy Cole LPN - 06/28/2021 9:29 AM EDT Phone call to pt. Unable to come today, requesting tomorrow AM. No 40 min availability tomorrow AM.Declines appt tomorrow at 3:20 with SAVANNAH Hayward. Accepts appt at 9:00 with SAVANNAH Hanley. * Telephone Encounter - Emily Luna PA-C - 06/27/2021 4:39 PM EDT Suggest appt for evaluation and ED f/u. Emily Luna PA-C Covering provider for Dr. Jade * Telephone Encounter - MANDY Johnson - 06/27/2021 7:32 AM EDT Patient calling and states that she has had a cough for 4 weeks. Please see call details. documented in this encounter Plan of Treatment Upcoming Encounters Date Type Specialty Care Team Description 06/30/2021 Office Visit Family Medicine Jalen Hanley PA-C [address] [address] 10/21/2021 Office Visit Family Medicine Elías Jade MD [address] [address] Health Maintenance Due Date Last Done Comments COVID-19 Vaccine (1) 1950 CKD PHOS USE SMARTSET 32993 1962 Zoster Vaccines (1 of 2) 1994 Influenza Vaccine (FLU shot) (#1) 2020 07/15/2019, 02/22/2016, 03/08/2015 DIABETES-EYE EXAM 07/16/2021 07/16/2020, 06/30/2019 DIABETES-FOOT EXAM 07/16/2021 07/16/2020, 07/15/2019 Depression Screening, Annual for Pts 12 and Over 07/16/2021 07/16/2020 DIABETES-HGBA1C EVERY 6 MONTHS 08/28/2021 02/28/2021, 01/20/2021, 10/06/2020, Additional history exists CKD GFR USE SMARTSET 57460 12/02/202106/04, 05/26/2021, 04/12/2021, Additional history exists DIABETES-URINE ALBUMIN/CREATININE EVERY 12 MONTHS 04/01/2022 04/01/2021, 07/16/2020, 06/06/2019 BASIC METABOLIC PANEL (BMP) FOR HTN YEARLY 06/04/2022 06/04/2021, 05/26/2021, 04/12/2021, Additional history exists CKD HGB USE SMARTSET 43715 06/04/202206/04, 06/04/2021, 05/26/2021, Additional history exists Dexa [...] Documents on File Type Date 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
--- OUTSIDE RECORDS SUMMARY | 2022-12-17 03:29 | External Medical Summary | Summary of Care ---
Author Name Unknown Organization [facility] [place] [address] Care Team Providers Care Federal Appellate Law Clerk Name Role Phone Elías Jade MD Primary Care Provider [phone] Reason for Visit * Reason Onset Date Comments Emergency Department Follow-Up 05/30/2021 Encounter Details Date Type Department Care Team Description 05/30/2021 Telephone [facility] 21 [facility] [place] [address] Elías Jade MD [address] [place] [address] Emergency Department Follow-Up Allergies Active Allergy Reactions Severity Noted Date Comments Eggs Or Egg-Derived Products Diarrhea 021 documented as of this encounter (statuses as of 05/30/2021) Medications Medication Sig Dispensed Refills Start Date [...] 03/07/2021 Active Lisinopril 20 MG Oral Tablet (Prinivil)Indication s:Stage 3a chronic kidney disease (HCC),HTN, goal below 140/90 Take 1 Tablet by mouth every night at bedtime. 90 Tablet 3 04/01/2021 Active Furosemide 20 MG Oral Tablet (Lasix)Indications:L [...] meals . 180 Tablet 3 05/16/2021 Active documented as of this encounter (statuses as of 05/30/2021) Active Problems Problem Noted Date Left heart [...] as of this encounter (statuses as of 05/30/2021) Resolved Problems Problem Noted Date Resolved Date [...] as of this encounter (statuses as of 05/30/2021) Immunizations Name Administration Dates Next Due DTaP - Dipth/Tet/Acell Pertussis 03/09/2017 Influenza Virus Vaccine, Unspecified Formulation 02/22/2016,03/08/2015 Pneumococcal Conjugate Vacc, 13 Valent (Prevnar) 05/27/2019,03/08/2015 Pneumococcal Polysaccharide PPV23 (Pneumovax) Seasonal Influenza, Trivalent, Adjuvanted, 65+ y rs [...] encounter Miscellaneous Notes * Telephone Encounter - Shauna Willard LPN - 05/30/2021 10:48 AM EST Emergency Department Follow Up: When was patient seen: 05.26.21 Which ED: [facility] What were they seen for: Headache What testing did they have done: lab work and ct scan What did ED think was wrong (dx): Headache Any new medications prescribed: No. How is patient feeling today: Feels pretty good. Patient concerns today: Has a terrible cough and cold with a lot of mucous that she has now had offan on for a month now. Appt scheduled for 06.01.21 * Telephone Encounter - MANDY Varghese - 05/30/2021 10:45 AM EST Patient was seen in ED. Please see call details. documented in this encounter Plan of Treatment Upcoming Encounters Date Type Specialty Care Team Description 06/01/2021 Office Visit Family Medicine Elías Jaed MD [address] [address] 07/21/2021 Office Visit Family Medicine Allison Rodrigez PA-C Health Maintenance Due Date Last Done Comments COVID-19 Vaccine (1) 1950 CKD PHOS USE SMARTSET 98241 1962 Zoster Vaccines (1 of 2) 1994 Influenza Vaccine (FLU shot) (#1) 2020 07/15/2019, 02/22/2016, 03/08/2015 *NEPHROLOGY REFERRAL DUE TO RESISTANT HTN 04/07/2021 DIABETES-EYE EXAM 07/16/2021 07/16/2020, 06/30/2019 DIABETES-FOOT EXAM 07/16/2021 07/16/2020, 07/15/2019 Depression Screening, Annual for Pts 12 and Over 07/16/2021 07/16/2020 DIABETES-HGBA1C EVERY 6 MONTHS 08/28/2021 02/28/2021, 01/20/2021, 10/06/2020, Additional history exists CKD GFR USE SMARTSET 06997 11/23/202105/26, 04/12/2021, 04/01/2021, Additional history exists DIABETES-URINE ALBUMIN/CREATININE EVERY 12 MONTHS 04/01/2022 04/01/2021, 07/16/2020, 06/06/2019 BASIC METABOLIC PANEL (BMP) FOR HTN YEARLY 05/26/2022 05/26/2021, 04/12/2021, 04/01/2021, Additional history exists CKD HGB USE SMARTSET 26162 05/26/202205/26, 05/26/2021, 04/12/2021, Additional history exists Dexa Scan 03/11/2026 03/11/2019 [...] Documents on File Type Date Recorded Patient Director Of Optimization 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 Advance Directives occurred with: Patient Care Teams Federal Appellate Law Clerk Relationship Specialty Start Date End Date Elías Jade MD [address] [address] PCP - General Family Medicine 04/01/21 documented as of this encounter
--- OUTSIDE RECORDS SUMMARY | 2022-12-17 03:29 | External Medical Summary ---
Author Name Unknown Address Unknown Organization K1F:LABORATORY [facility] - [address] [address] Laboratory Report Ordering Provider Test Date Status KIKI FUENTES 06/04/2021 06:30:07 Fin al Observation Date Value Abnormality Reference (Units ) Status WBC, Total 06/04/2021 06:30:07 3.89 Below low normal 4.00-10.80 (K/uL) Final RBC 06/04/2021 06:30:07 4.53 3.85-5.15 (M/uL) Final Hemoglobin 06/04/2021 06:30:07 11.8 Below low normal 12.0-15.3 (g/dL) Final HCT 06/04/2021 06:30:07 38.3 36.0-45.2 (%) Final MCV 06/04/2021 06:30:07 84.5 81.5-97.5 (fL) Final MCH 06/04/2021 06:30:07 26.0 Below low normal 27.0-34.0 (pg) Final MCHC 06/04/2021 06:30:07 30.8 Below low normal 32.0-36.0 (g/dL) Final RDW 06/04/2021 06:30:07 15.0 11.5-15.5 (%) Final MPV 06/04/2021 06:30:07 11.9 Above high normal 6.6-11.1 (fL) Final Nucleated erythrocytes/100 leukocytes [Ratio] in Blood by Automated count 06/04/2021 06:30:07 0 <=0 (/100 WBCs) Final Platelets 06/04/2021 06:30:07 144 140-400 (K/uL) Final Performing Location LABORATORY [facility] - [address] [address]
--- OUTSIDE RECORDS SUMMARY | 2022-12-17 03:29 | External Medical Summary | Summary of Care ---
Author Name Unknown Organization [facility] [place] [address] Care Team Providers Care Forcer Maker Name Role Phone Elías Jade MD Primary Care Provider [phone] Reason for Visit * Reason Comments Emergency Department Follow-Up Encounter Details Date Type Department Care Team Description 06/01/2021 [facility] [address] [facility] [place] [address] Elías Jade MD [address] [facility] [place] [address] Sinus congestion*; Stage 3a chronic kidney disease (HCC); Severe obesity with body mass index (BMI) of 35.0 to 39.9 with serious comorbidity (HCC); Type 2 diabetes mellitus with stage 3a chronic kidney disease, without long-term current use of insulin (HCC); Left heart failure (HCC); Need for hepatitis C screening test; Risk and functional assessment Allergies Active Allergy Reactions Severity Noted Date Comments Eggs Or Egg-Derived Products Diarrhea 021 documented as of this encounter (statuses as of 06/01/2021) Medications Medication Sig Dispensed Refills Start Date [...] as of this encounter (statuses as of 06/01/2021) Active Problems Problem Noted Date Left heart [...] as of this encounter (statuses as of 06/01/2021) Resolved Problems Problem Noted Date Resolved Date [...] as of this encounter (statuses as of 06/01/2021) Immunizations Name Administration Dates Next Due DTaP [...] Sign Reading Time Taken Comments Blood Pressure 128/82 06/01/2021 10:34 AM EST Pulse 60 06/01/2021 10:34 AM EST Temperature 36.9 C (98.5 F) 06/01/2021 10:[address] Respiratory Rate 16 06/01/2021 10:34 AM EST Oxygen Saturation 96% 06/01/2021 10:34 AM EST Inhaled Oxygen Concentration - - Weight 99.1 kg (218 lb 6.4 oz) 06/01/2021 10:34 AM EST Height 167.6 cm (5' 6") 06/01/2021 10:34 AM EST Body Mass Index 35.25 06/01/2021 10:34 AM EST documented in this encounter Functional [...] encounter Patient Instructions * Patient Instructions* Samia King, MED ASSIST - 06/01/2021 10:35 AM EST Patient Instructions - Fall Prevention (This education is for all patients over 65 regardless of symptoms) Remember to take your current medications as prescribed. In order to prevent falls, you are encouraged to: Exercise Utilize assistive/adaptive devices Avoid multifocal lenses when walking Avoid hazards in home Maintain a regular toileting schedule Any questions please contact our office. Preventing Falls in the Home (This education is for all patients over 65 regardless of symptoms) As you get older, falls are more likely. Thats because your reaction time slows. Your muscles and joints may also get stiffer, making them less flexible. Illness, medications, and vision changes can also affect your balance. A fall could leave you unable to live on your own. To make your home safer, follow these tips: Floors Put nonskid pads under area rugs Remove throw rugs Replace worn floor coverings Tack carpets firmly to each step on carpeted stairs. Put nonskid strips on the edges of uncarpeted stairs Keep floors and stairs free of clutter and cords Arrange furniture so there are clear pathways Clean up any spills right away Bathrooms Install grab bars in the tub or shower Apply nonskid strips or put a nonskid rubber mat in the tub or shower Sit on a bath chair to bathe Use bathmats with nonskid backing Lighting Keep a flashlight in each room Put a nightlight along the pathway between the bedroom and the bathroom Pablospencer Patient Education Copyright 2008 - 2010 Nava except where otherwise noted Preventing Falls: Exercises to Improve Balance, Flexibility, Strength, and Staying Power (This education is for all patients over 65 regardless of symptoms) Certain types of exercises may help make you less likely to fall. Try the ones below. Or do other exercises that your healthcare provider suggests. Depending on your health, you may need to start slowly. Dont let that stop you. Even small amounts of exercise can help you. Be sure to talk to yourhealthcare provider before starting any exercise program. Improve Balance Many types of exercise can help improve balance. Neville chi and yoga are good examples. Heres another one to try. You can do it anytime and almost anywhere. Stand next to a counter or solid support. Push yourself up onto your tiptoes. Hold for 5 seconds. If you start to lose your balance, hold on to the counter. Rest and repeat 5 times. Work up to holding for 20 to 30 seconds, if you can. Increase Flexibility Being more flexible makes it easier for you to move around safely. Try exercises like the seated hamstring stretch. Sit in a chair and put one foot on a stool. Straighten your leg and reach with both hands down either side of your leg. Reach as far down your leg as you can. Hold for about 20 seconds. Go back to the starting position. Then repeat 5 times. Switch legs. Build Strength Resistance exercises help build strength. You can do them without equipment. Or you can use weights, elastic bands, or special machines. One such exercise is called the biceps curl. You can hold a 1 pound weight or even a can of soup. Do this exercise at least 3 times a week. Strive for everyday. Sit up straight in a chair. Keep your elbow close to your body and your wrist straight. Bend your arm, moving your hand up to your shoulder. Then slowly lower your arm. Repeat 5 times. Switch to the other arm. Build Your Staying Power Aerobic exercises make your heart and lungs stronger so you can keep moving longer. Walking and swimming are two of the best types of exercises you can do. Using a stationary bike is great, too. Find an aerobic exercise that you enjoy. Start slowly and build up. Even 5 minutes is helpful. Aimfor a goal of 30 minutes, at least 3 times a week. You dont have to do 30 minutes in one session. Break it up and walk a little throughout the day. More Helpful Tips Start easy. Slowly work up to doing more. Talk with your healthcare provider about the best exercises for you. Call senior centers or health clubs about exercise programs. If needed, have a family member watch you walk every so often to check your stability. Exercise with a friend. Choose an activity you both enjoy. Try exercises that you can do anytime, anywhere. Here are two examples. Have someone with you when you first try these: Practice walking by placing one foot right in front of the other. Stand up and sit down 10 times. Repeat this throughout the day. Factual Patient Education Copyright 2008 - 2010 Factual except where otherwise noted. Preventing Falls: Moving Safely Using a Cane or Walker (This education is for all patients over 65 regardless of symptoms) Keep the cane away from your feet so you dont trip. A walking aid, such as a cane or walker, can help you stay more independent and avoid falls. Remember to keep your walking aid within easy reach when youre in a chair or in bed. And learn how to use it safely so you dont injure yourself. Using a Cane If you have a stronger side, hold the cane on that side. 17. Get your balance. 18. Move the cane and your weaker leg forward. 19. Support your weight on both the cane and your weaker side. 20. Step with your stronger leg. 21. Start again from step 1. If youre using a folding walker, be sure you know how to lock it open. Check that its locked open before each use. Using a Walker 7. Roll the walker (or lift it, if youre using one without wheels) forward about 12 inches. 8. Step forward with your weaker leg first. 9. Use the walker to help keep your balance. 10. Bring your other foot forward to the center of the walker. 11. Start again from step 1. Helpful Tips Check with your healthcare provider about the right walking aid to use. Ask about a walker with a seat attached. Check the tips of your cane or walker to make sure they have nonskid covers. Move slowly from room to room. Dont hauser. Sit down to get dressed. Use a jonatan pack or backpack to keep your hands free. Get help for jobs that mean climbing, even on a stepstool. Pablospencer Patient Education Copyright 2008 - 2010 Nava except where otherwise noted. Urinary Incontinence Plan of Care Documentation: (This education is for all patients over 65 regardless of symptoms) Current medications reconciled. Patient encouraged to: Practice kegal exercises Provide education materials Use the restroom every 2 hours throughout the day Limit caffeine, alcohol, spicy foods and acidic foods Keep a bladder diary Limit fluid intake 3-4 hours before bed Lose weight Prevent constipation Take fluid pills at a time when you can get to the bathroom quickly Control sugar better if diabetic Limit fluid intake to 60 oz. per day Wear support stockings (TEDs)if you have edema Samia King, MED ASSIST 06/01/2021 Kegel Exercises Kegel exercises dont require special clothing or equipment. Theyre easy to learn and simple to do. And if you do them right, no one can tell youre doing them, so they can be done almost anywhere. Your doctor, nurse, or physical therapist can answer any questions you have and help you get started. A Weak Pelvic Floor The pelvic floor muscles may weaken due to aging, and vaginal childbirth, injury, surgery, chronic cough, or lack of exercise. If the pelvic floor is weak, your bladder and other pelvic organs may sag out of place. The urethra may also open too easily and allow urine to leak out. Kegel exercises can help you strengthen your pelvic floor muscles so they can better support the pelvic organs and control urine flow. How Kegel Exercises Are Done Try each of the Kegel exercises described below. When youre doing them, try not to move your leg, buttock, or stomach muscles. While youre urinating, try to stop the flow of urine. Start and stop it as often as you can. Contract as if you were stopping your urine stream, but do it when youre not urinating. Tighten your rectum as if trying not to pass gas. Contract your anus, but dont move your buttocks. Helpful Hints Do your Kegels as often as you can. The more you do them, the faster youll feel the results. Pick an activity you do often as a reminder. For instance, do your Kegels every time you sit down. Tighten your pelvic floor before you sneeze, get up from a chair, cough, laugh, or lift. This protects your pelvic floor from injury and can help prevent urine leakage. Try to hold each Kegel for a slow count to five. You probably wont be able to hold them for thatlong at first, but keep practicing. It will get easier as your pelvic floor gets stronger. Eventually, special weights that you place in your vagina may be recommended to help make your Kegels even more effective. Nava Patient Education Copyright 2008 - 2010 Nava except where otherwise noted. Here are some helpful tips for your urinary incontinence: (This education is for all patients over 65 regardless of symptoms) Practice Kegel exercises Use the restroom every 2 hours throughout the day Limit caffeine, alcohol, spicy foods, and acidic foods Keep a bladder diary Limit fluid intake 3-4 hours before bed Lose weight Prevent constipation Take fluid pills at a time when can get to the bathroom quickly Control sugar better if diabetic Limit fluid intake to 60 oz. per day Any questions, please feel free to contact our office. documented in this encounter Progress Notes * Elías Jade MD - 06/01/2021 10:43 AM EST Images from the original note were not included. History of Present Illness Sahra Rodríguez is a 76 year old female that presents for Emergency Department Follow-Up Feeling sick. Primary symptoms are cough productive of mucous. Started one week ago. Since then, has been the same. Associated symptoms: no fever, chills, n/v/d/c. Appetite normal. No cough, difficulty breathing Tx to date: mucinex, cold and sinus Sick contacts: None. Stays home Was in ED on 05/26 with 10/23 headache, lasting 4 hours with photophobia. Improved with tylenol, compezine and fluids. Also with sinus symptoms at that time. Head CT, labs reassuring at that time. Has not recured Diabetes: Last a1c 7.4 in February. No symptomatic highs or lows CKD: ED labs showing cr stable at 1.2. Left heart failure: EF 50%, stable over 3 months. On metop tartrate 25mg bid. , 80mg lipitor, 20mg lisinopril qhs. Much improved at this time, no swelling, breathing much improved too. Physical Exam Vitals: 06/01/21 1034 Temp: 36.9 C (98.5 F) Pulse: 60 Resp: 16 SpO2: 96% BP: 128/82 BMI: 35.27 Wt Readings from Last 3 Encounters: 06/01/21 99.1 kg (218 lb 6.4 oz) 05/26/21 102.1 kg (225 lb) 04/12/21 102.1 kg (225 lb) Physical Exam Vitals and nursing note reviewed. Constitutional: Appearance: Normal appearance. HENT: Head: Normocephalic and atraumatic. Right Ear: External ear normal. Left Ear: External ear normal. Ears: Comments: Hearing aids in place No effusion or erythema Nose: Congestion present. No rhinorrhea. Comments: Wearing mask Mouth/Throat: Mouth: Mucous [...] No edema. Comments: Ambulates independently Lymphadenopathy: Cervical: Cervical adenopathy (shotty, non-tender anterior) present. Skin: General: Skin is warm and dry. Neurological: General: No focal deficit present. Mental Status: She is alert and oriented to person, place, and time. Cranial Nerves: No cranial nerve deficit. Psychiatric: Mood and Affect: Mood normal. Behavior: Behavior normal. Thought Content: Thought content normal. I have reviewed the following results: CMP, Lipid Panel, Hemoglobin A1C, CBC, BMP and Albumin / Creatinine Ratio, Urine Assessment and Plan Sinus congestion Ongoing now for about a week. Not worsening. Encouraged continued good hydration, to take her Mucinex with a full glass of water, and to start using a sinus rinse to flush her sinuses. If not improved by Sunday will do antibiotics and she will let us know. No known COVID contacts, and although she is not vaccinated I have low suspicion for COVID at this time. Stage 3a chronic kidney disease (HCC) Chronic, stable on most recent labs. Blood pressure much better controlled today with recent increase of lisinopril to 20 mg. Severe obesity with body mass index (BMI) of 35.0 to 39.9 with serious comorbidity (HCC) Chronic, weight down slightly with recent diuresis. BMI of 35 today. Discussed increased physical activity to 150 minutes weekly, reducing portion sizes, and cutting out "emtpy calories". Handout provided. Type 2 diabetes mellitus with stage 3a chronic kidney disease, without long-term current use of insulin (HCC) Chronic, stable on a 1000 mg metformin twice daily. Would do GLP-1 next if needed given cardiac history and obesity. Left heart failure (HCC) Chronic, educated today about heart failure. Will continue to check her weight and if increasing will let us know. Currently at baseline today Need for hepatitis C screening test Due for screening, will order with next lab test. - HEPATITIS C ANTIBODY SCREEN WITH PROGRESSION TO HEPATITIS C RNA QUANTITATIVE; Future Risk and functional assessment Done Wrap-Up Time: I spent a total of 30-39 minutes (exact time 38 mins) on the date of service in preparation, delivery, and documentation of the care provided to Sahra Rodríguez excluding any time spent in the performance of separately billed services. * GRACE Uriarte - 06/01/2021 10:32 AM EST Chief Complaint Patient presents with Emergency Department Follow-Up Pt here for ER follow up of headhache. Pt complaining today of a cough and mucus for 1 week. documented in this encounter Plan of Treatment Upcoming Encounters Date Type Specialty Care Team Description 10/21/2021 Office Visit Family Medicine Elías Jade MD [address] [id number] Scheduled Orders Name Type Priority Associated Diagnoses Orde r Schedule HEPATITIS C ANTIBODY SCREEN WITH PROGRESSION TO HEPATITIS C RNA QUANTITATIVE Lab Routine Need for hepatitis C screening test Expected: 06/01/2021 (Approximate), Expires: 06/01/2022 Health Maintenance Due Date Last Done Comments COVID-19 Vaccine (1) 1950 CKD PHOS USE SMARTSET 32323 1962 Zoster Vaccines (1 of 2) 1994 Influenza Vaccine (FLU shot) (#1) 2020 07/15/2019, 02/22/2016, 03/08/2015 *NEPHROLOGY REFERRAL DUE TO RESISTANT HTN 04/07/2021 DIABETES-EYE EXAM 07/16/2021 07/16/2020, 06/30/2019 DIABETES-FOOT EXAM 07/16/2021 07/16/2020, 07/15/2019 Depression Screening, Annual for Pts 12 and Over 07/16/2021 07/16/2020 DIABETES-HGBA1C EVERY 6 MONTHS 08/28/2021 02/28/2021, 01/20/2021, 10/06/2020, Additional history exists CKD GFR USE SMARTSET 28777 11/23/202105/26, 04/12/2021, 04/01/2021, Additional history exists DIABETES-URINE ALBUMIN/CREATININE EVERY 12 MONTHS 04/01/2022 04/01/2021, 07/16/2020, 06/06/2019 BASIC METABOLIC PANEL (BMP) FOR HTN YEARLY 05/26/2022 05/26/2021, 04/12/2021, 04/01/2021, Additional history exists CKD HGB USE SMARTSET 27310 05/26/202205/26, 05/26/2021, 04/12/2021, Additional history exists Dexa [...] as of this encounter Visit Diagnoses Diagnosis Sinus congestion- Primary Other diseases of nasal cavity and sinuses Stage 3a chronic kidney disease (HCC) Severe obesity with body mass index (BMI) of 35.0 to 39.9 with serious comorbidity (HCC) Type 2 diabetes mellitus with stage 3a chronic kidney disease, without long-term current use of insulin (HCC) Left heart failure (HCC) Left heart failure Need for hepatitis C screening test Special screening examination for other specified viral diseases Risk and functional assessment Screening for unspecified condition documented in this encounter Advance Directives Documents on File Type Date Recorded Patient Chemical Engraver 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 Advance Directives occurred with: Patient Care Teams Forcer Maker Relationship Specialty Start Date End Date Elías Jade MD [address] [facility] [address] [place] [address] PCP - General Family Medicine 06/01/21 documented as of this encounter
--- OUTSIDE RECORDS SUMMARY | 2022-12-17 03:29 | External Medical Summary ---
Author Name Unknown Address Unknown Organization K1F:[facility] - [address] [address] Laboratory Report Ordering Provider Test Date Status DANIELRUSTAM 05/26/2021 02:22:32 Final Observation Date Value Abnormality Reference (Units ) Status BUN 05/26/2021 02:22:32 12 6-20 (mg/dL) Final Creatinine 05/26/2021 02:22:32 1.2 Above high normal 0.5-1.0 (mg/dL) Final Glomerular filtration rate/1.73 sq M.predicted [Volume Rate/Area] in Serum, Plasma or Blood by Creatinine-based formula (CKD-EPI) 05/26/2021 02:22:32 48 Below low normal >=60 (mL/min) Final Performing Location LABORATORY [facility] - [address] [address]
--- OUTSIDE RECORDS SUMMARY | 2022-12-17 03:29 | External Medical Summary | Summary of Care ---
Author Name Unknown [place] [address] Care Team Providers Care Feeder Catcher Name Role Phone Elías Jade MD Primary Care Provider [phone] [phone] Encounter Details Date Type Department Care Team Description 08/12/2021 Scan Encounter [facility] [address] [place] [address] Elías Jade MD [address] [place] [address] <No scans attached> Allergies Active Allergy Reactions Severity Noted Date Comments Eggs Or Egg-Derived Products Diarrhea 021 documented as of this encounter (statuses as of 08/15/2021) Medications Medication Sig Dispensed Refills Start Date [...] as of this encounter (statuses as of 08/15/2021) Active Problems Problem Noted Date Left heart [...] as of this encounter (statuses as of 08/15/2021) Resolved Problems Problem Noted Date Resolved Date [...] as of this encounter (statuses as of 08/15/2021) Immunizations Name Administration Dates Next Due DTaP [...] Vaccine (1) 1950 CKD PHOS USE SMARTSET 77450 1962 Zoster Vaccines (1 of 2) 1994 *NEPHROLOGY REFERRAL DUE TO RESISTANT HTN 07/04/2021 DIABETES-EYE EXAM 07/16/2021 07/16/2020, 06/30/2019 DIABETES-FOOT EXAM 07/16/2021 07/16/2020, 07/15/2019 Depression Screening, Annual for Pts 12 and Over 07/16/2021 07/16/2020 DIABETES-HGBA1C EVERY 6 MONTHS 08/28/2021 02/28/2021, 01/20/2021, 10/06/2020, Additional history exists CKD GFR USE SMARTSET 95751 12/02/202106/04, 05/26/2021, 04/12/2021, Additional history exists Influenza Vaccine (FLU shot) (Season Ended) 2021 07/15/2019, 02/22/2016, 03/08/2015 DIABETES-URINE ALBUMIN/CREATININE EVERY 12 MONTHS 04/01/2022 04/01/2021, 07/16/2020, 06/06/2019 BASIC METABOLIC PANEL (BMP) FOR HTN YEARLY 06/04/2022 06/04/2021, 05/26/2021, 04/12/2021, Additional history exists CKD HGB USE SMARTSET 26174 06/04/202206/04, 06/04/2021, 05/26/2021, Additional history exists Dexa [...] Documents on File Type Date Recorded Patient Category Director 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 Advance Directives occurred with: Patient Care Teams Feeder Catcher Relationship Specialty Start Date End Date Elías Jade MD [address] [id number] PCP - General Family Medicine 06/01/21 documented as of this encounter
--- OUTSIDE RECORDS SUMMARY | 2022-12-17 03:29 | External Medical Summary | Summary of Care ---
Author Name Unknown Organization [place] [address] Care Team Providers Care Retail Pricing Coordinator Name Role Phone Elías Gilbert MD Primary Care Provider [phone] Reason for Visit * Reason Onset Date Comments Medication Refill 06/24/2021 Encounter Details Date Type Department Care Team Description 06/24/2021 Refill [facility] [address] [place] [address] Elías Gilbert MD [address] [place] [address] Stage 3a chronic kidney disease (HCC); HTN, goal below 140/90 Allergies Active Allergy Reactions Severity Noted Date Comments Eggs Or Egg-Derived Products Diarrhea 021 documented as of this encounter (statuses as of 06/24/2021) Medications Medication Sig Dispensed Refills Start Date [...] (Lipitor)Indicatio ns:Dyslipidemia, goal LDL below 100 Take 1 Tablet by mouth at bedtime. 90 Tablet 3 03/02/2021 Active Escitalopram Oxalate 10 MG Oral Tablet (Lexapro)Indicatio ns:ADRIANA (generalized anxiety disorder) Take 1 Tablet by mouth daily. 90 Tablet 1 03/07/2021 Active Furosemide 20 MG Oral Tablet (Lasix)Indications [...] 05/16/2021 Active Lisinopril 20 MG Oral Tablet (Prinivil)Indicati ons:Stage 3a chronic kidney disease (HCC),HTN, goal below 140/90 Take by mouth 1 Tablet before bedtime. 90 Tablet 3 06/24/2021 Active Lisinopril 20 MG Oral Tablet (Prinivil)Indicati ons:Stage 3a chronic kidney disease (HCC),HTN, goal below 140/90 Take 1 Tablet by mouth every night at bedtime. 90 Tablet 3 04/01/2021 2 Discontinue d(Refill) documented as of this encounter (statuses as of 06/24/2021) Active Problems Problem Noted Date Left heart [...] as of this encounter (statuses as of 06/24/2021) Resolved Problems Problem Noted Date Resolved Date [...] as of this encounter (statuses as of 06/24/2021) Immunizations Name Administration Dates Next Due DTaP [...] Telephone Encounter - Elías Gilbert MD - 06/24/2021 3:59 PM EST Signed Prescriptions: Disp Refills Lisinopril 20 MG Oral Tablet (Prinivil) 90 Tab*3 Sig: Take by mouth 1 Tablet before bedtime. Authorizing Provider: ELÍAS GILBERT * Telephone Encounter - Kenyon Smith LPN - 06/24/2021 3:38 PM EST Pending Prescriptions: Disp Refills Lisinopril 20 MG Oral Tablet (Prinivil) 90 Tab*3 Sig: Take by mouth 1 Tablet before bedtime. Last Visit: 06/01/2021 (in office), Visit date not found (telemedicine) Next Visit: 10/21/2021 If no future appointments scheduled, and last appointment is greater than a year ago, please schedule patient for a follow-up appointment Last date the medication was ordered: 04/01/2021- requesting retail pharmacy Pharmacy: [id number]- [place] Is this request for a controlled substance?No [...] Family Medicine YasmanyElías MD [address] [address] Health Maintenance Due Date Last Done Comments COVID-19 Vaccine (1) 1950 CKD PHOS USE SMARTSET 69497 1962 Zoster Vaccines (1 of 2) 1994 Influenza Vaccine (FLU shot) (#1) 2020 07/15/2019, 02/22/2016, 03/08/2015 DIABETES-EYE EXAM 07/16/2021 07/16/2020, 06/30/2019 DIABETES-FOOT EXAM 07/16/2021 07/16/2020, 07/15/2019 Depression Screening, Annual for Pts 12 and Over 07/16/2021 07/16/2020 DIABETES-HGBA1C EVERY 6 MONTHS 08/28/2021 02/28/2021, 01/20/2021, 10/06/2020, Additional history exists CKD GFR USE SMARTSET 74256 12/02/202106/04, 05/26/2021, 04/12/2021, Additional history exists DIABETES-URINE ALBUMIN/CREATININE EVERY 12 MONTHS 04/01/2022 04/01/2021, 07/16/2020, 06/06/2019 BASIC METABOLIC PANEL (BMP) FOR HTN YEARLY 06/04/2022 06/04/2021, 05/26/2021, 04/12/2021, Additional history exists CKD HGB USE SMARTSET 08094 06/04/202206/04, 06/04/2021, 05/26/2021, Additional history exists Dexa [...] hypertension documented in this encounter Advance Directives Documents on File Type Date Recorded 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
--- OUTSIDE RECORDS SUMMARY | 2022-12-17 03:29 | External Medical Summary | Summary of Care ---
Author Name Unknown Organization [facility] [address] Care Team Providers Care Therapist Phys Name Role Phone Elías Jade MD Primary Care Provider [phone] Reason for Visit * Reason Comments Emergency Department Follow-Up 06/04 coug h Cough productive cough x 4 weeks Headache Encounter Details Date Type Department Care Team Description 06/30/2021 Office Visit [facility] [address] [facility] [address] Jaeln Hanley PA-C 21 [facility] [place] [id number] Bronchitis, complicated*; Suspected COVID-19 virus infection Allergies Active Allergy Reactions Severity Noted Date Comments Eggs Or Egg-Derived Products Diarrhea 021 documented as of this encounter (statuses as of 06/30/2021) Medications Medication Sig Dispensed Refills Start Date [...] as of this encounter (statuses as of 06/30/2021) Active Problems Problem Noted Date Left heart [...] as of this encounter (statuses as of 06/30/2021) Resolved Problems Problem Noted Date Resolved Date [...] as of this encounter (statuses as of 06/30/2021) Immunizations Name Administration Dates Next Due DTaP [...] Sign Reading Time Taken Comments Blood Pressure 152/70 06/30/2021 8:56 AM EDT Pulse 105 06/30/2021 8:56 AM EDT Temperature 36.8 C (98.2 F) 06/30/2021 8:56 AM ED T Respiratory Rate 20 06/30/2021 8:56 AM EDT Oxygen Saturation 95% 06/30/2021 8:56 AM EDT Inhaled Oxygen Concentration - - Weight 97.9 kg (215 lb 12.8 oz) 06/30/2021 8:56 AM EDT Height 167.6 cm (5' 6") 06/30/2021 8:56 AM EDT Body Mass Index 34.83 06/30/2021 8:56 AM EDT documented in this encounter Functional [...] as of this encounter Progress Notes * Jalen Hanley PA-C - 06/30/2021 9:13 AM EDT Subjective Sahra Rodríguez is a 76 year old female. Chief Complaint Patient presents with Emergency Department Follow-Up 06/04 cough Cough productive cough x 4 weeks Headache HPI: Sahra is a 76 year old female who presents for ER follow up. Seen at [facility] on 06/04/2021 for cough and weakness. Declined COVID testing at the time, and symptoms have gradually worsened. She admits yellow sputum production. Also admits SOB and wheezing. Admits loss of taste as well 3 weeks ago. Denies fever, chills, chest pain, palpitations, orthopnea, and PND. Denies sick contacts. 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 Secondary hyperparathyroidism, non-renal ([facility]) E21.1 B12 deficiency E53.8 Stage 3a chronic kidney disease ([facility]) N18.31 Severe obesity with body mass index (BMI) of 35.0 to 39.9 with serious comorbidity ([facility]) E66.01 Type 2 diabetes mellitus with stage 3a chronic kidney disease ([facility]) E11.22, N18.31 MANDY (obstructive sleep apnea) G47.33 Acute chest pain R07.9 Left bundle branch block (LBBB) I44.7 Uncontrolled hypertension I10 Left heart failure ([facility]) I50.1 Current Outpatient Medications Medication Sig Dispense Refill aspirin enteric coated 81 MG TBEC Take 1 Tab by mouth daily. omeprazole (PRILOSEC) 20 MG CPDR Take 1 Cap by mouth daily. B-12 1000 MCG [address]ual Tablet Sublingual [address] 1,000 MCG UNDER THE TONGUE DAILY 30 Tab 11 Zoster Vac Recomb Adjuvanted 50 MCG/0.5ML Intramuscular Suspension Reconstituted (Shingrix) Inject 0.5 mL into a large muscle now and repeat dose in 60 to 180 days 1 Each 1 Metoprolol Tartrate 25 MG Oral Tablet (Lopressor) Take 0.5 Tabs by mouth 2 times a day. 30 Tab 11 busPIRone HCl 10 MG Oral Tablet (Buspar) TAKE ONE TABLET BY MOUTH THREE TIMES A DAY NEEDED FOR ANXIETY 270 Tab 1 Atorvastatin Calcium 80 MG Oral Tablet (Lipitor) Take 1 Tablet by mouth at bedtime. 90 Tablet 3 Escitalopram Oxalate 10 MG Oral Tablet (Lexapro) Take 1 Tablet by mouth daily. 90 Tablet 1 Furosemide 20 MG Oral Tablet (Lasix) Take 1 Tablet by mouth daily. 30 Tablet 11 Meclizine HCl 25 MG Oral Tablet (Antivert) Take 1 Tablet by mouth 3 times a day as needed for Dizziness. 30 Tablet 0 metFORMIN HCl 1000 MG Oral Tablet (Glucophage) Take by mouth 1 Tablet 2 times a day with morning and evening meals . 180 Tablet 3 Lisinopril 20 MG Oral Tablet (Prinivil) Take by mouth 1 Tablet before bedtime. 90 Tablet 3 Amoxicillin-Pot Clavulanate 875-125 MG Oral Tablet (Augmentin) Take by mouth 1 Tablet in the morning AND 1 Tablet before bedtime. Do all this for 10 days. 20 Tablet 0 predniSONE 10 MG Oral Tablet (Deltasone) Take 4 tabs for 2 days, 3 tabs for 2 days, 2 tabs for 2 days 1 tab for 2 days 20 Tablet 0 ProAir HFA 108 (90 Base) MCG/ACT Inhalation Aerosol Solution Inhale by mouth 2 Puffs every 4 hours as needed for Wheezing. 8 g 1 Benzonatate 100 MG Oral Capsule (Tessalon Perles) Take by mouth 1 Capsule as needed in the morning AND 1 Capsule as needed at noon AND 1 Capsule as needed in the evening for Cough. Do not cut, crush, or chew.. 50 Capsule 1 No current facility-administered medications for this visit. Past Medical History: Diagnosis Date Anxiety 2014 [...] on file Tobacco Use Smoking status: Never Smoker Smokeless tobacco: Never Used Vaping Use Vaping Use: Never used Substance [...] on file Housing Stability: Not on file Review of Systems Constitutional: Positive for fatigue. Negative for appetite change, chills, diaphoresis, fever and unexpected weight change. HENT: Positive for congestion. Negative for ear discharge, ear pain, hearing loss, postnasal drip, rhinorrhea, sinus pressure, sinus pain, sore throat and trouble swallowing. Eyes: Negative for photophobia, pain, discharge, redness, itching and visual disturbance. Respiratory: Positive for cough, chest tightness, shortness of breath and wheezing. Cardiovascular: Negative for chest pain, palpitations and leg swelling. Gastrointestinal: Negative for abdominal pain, blood in stool, constipation, diarrhea, nausea and vomiting. Skin: Negative for color change, pallor, rash and wound. Neurological: Negative for dizziness, syncope, weakness, light-headedness, numbness and headaches. Objective BP 152/70 | Pulse 105 | Temp 36.8 C (98.2 F) (Tympanic) | Resp 20 | Ht 1.676 m (5' 6") | Wt 97.9 kg (215 lb 12.8 oz) | SpO2 95% | BMI 34.83 kg/m | BSA 2.14 m Physical Exam Constitutional: General: She is not in acute distress. Appearance: Normal appearance. She is well-developed and normal weight. She is not ill-appearing, toxic-appearing or diaphoretic. HENT: Head: Normocephalic and atraumatic. Jaw: No trismus. Right Ear: Tympanic membrane, ear canal and external ear normal. There is no impacted cerumen. Left Ear: Tympanic membrane, ear canal and external ear normal. There is no impacted cerumen. Nose: Congestion and rhinorrhea present. No mucosal edema. Right Sinus: No maxillary sinus tenderness or frontal sinus tenderness. Left Sinus: No maxillary sinus tenderness or frontal sinus tenderness. Mouth/Throat: Mouth: Mucous membranes are moist. Pharynx: Oropharynx is clear. Uvula midline. No oropharyngeal exudate, posterior oropharyngeal erythema or uvula swelling. Tonsils: No tonsillar abscesses. Eyes: General: No scleral icterus. Right eye: No discharge. Left eye: No discharge. Extraocular Movements: Extraocular movements intact. Conjunctiva/sclera: Conjunctivae normal. Pupils: Pupils are equal, round, and reactive to light. Cardiovascular: Rate and Rhythm: Normal rate and regular rhythm. Pulses: Normal pulses. Heart sounds: Normal heart sounds. No murmur heard. No friction rub. No gallop. Pulmonary: Effort: Pulmonary effort is normal. No respiratory distress. Breath sounds: No stridor. Wheezing present. No decreased breath sounds, rhonchi or rales. Chest: Chest wall: No tenderness. Abdominal: General: Abdomen is flat. Bowel sounds are normal. There is no distension or abdominal bruit. Palpations: Abdomen is soft. Abdomen is not rigid. There is no hepatomegaly, splenomegaly or mass. Tenderness: There is no abdominal tenderness. There is no right CVA tenderness, left CVA tenderness, guarding or rebound. Negative signs include Roberts's sign and McBurney's sign. Hernia: No hernia is present. Musculoskeletal: Cervical back: Neck supple. Lymphadenopathy: Cervical: No cervical adenopathy. Skin: General: Skin is warm and dry. Coloration: Skin is not jaundiced or pale. Findings: No erythema or rash. Neurological: Mental Status: She is alert. ASSESSMENT/PLAN: Bronchitis, complicated (Primary) - Amoxicillin-Pot Clavulanate 875-125 MG Oral Tablet (Augmentin); Take by mouth 1 Tablet in the morning AND 1 Tablet before bedtime. Do all this for 10 days. - predniSONE 10 MG Oral Tablet (Deltasone); Take 4 tabs for 2 days, 3 tabs for 2 days, 2 tabs for 2days 1 tab for 2 days - ProAir HFA 108 (90 Base) MCG/ACT Inhalation Aerosol Solution; Inhale by mouth 2 Puffs every 4 hours as needed for Wheezing. - Benzonatate 100 MG Oral Capsule (Tessalon Perles); Take by mouth 1 Capsule as needed in the morning AND 1 Capsule as needed at noon AND 1 Capsule as needed in the evening for Cough. Do not cut, crush, or chew.. - XR CHEST 2 VIEWS Suspected COVID-19 virus infection - XR CHEST 2 VIEWS Suspect patient had COVID given loss of taste. Concern for viral pneumonia as well as secondary bacterial infection given symptoms. Will treat with Augmentin and prednisone as well as an albuterol inhaler as needed for wheezing. Tessalon perles given at patient request. Will also obtain CXR. Patient declines COVID testing. Encouraged to go to the ER if symptoms continue to worsen. Follow Up: Return if symptoms worsen or fail to improve. Jalen Hanley PA-C documented in this encounter Nursing Notes * Janie Zuleta LPN - 06/30/2021 8:58 AM EDT Chief Complaint Patient presents with Emergency Department Follow-Up 06/04 cough Cough productive cough x 4 weeks Headache documented in this encounter Plan of Treatment Upcoming Encounters Date Type Specialty Care Team Description 10/21/2021 Office Visit Family Medicine YasmanyElías MD [address] [address] Pending Results Name Type Priority Associated Diagnoses Date /Time XR CHEST 2 VIEWS Medical Imaging STAT Bronchitis, complicated Suspected COVID-19 virus infection 06/30/2021 9:39 AM EDT Health Maintenance Due Date Last Done Comments COVID-19 Vaccine (1) 1950 CKD PHOS USE SMARTSET 56855 1962 Zoster Vaccines (1 of 2) 1994 Influenza Vaccine (FLU shot) (#1) 2020 07/15/2019, 02/22/2016, 03/08/2015 DIABETES-EYE EXAM 07/16/2021 07/16/2020, 06/30/2019 DIABETES-FOOT EXAM 07/16/2021 07/16/2020, 07/15/2019 Depression Screening, Annual for Pts 12 and Over 07/16/2021 07/16/2020 DIABETES-HGBA1C EVERY 6 MONTHS 08/28/2021 02/28/2021, 01/20/2021, 10/06/2020, Additional history exists CKD GFR USE SMARTSET 36930 12/02/202106/04, 05/26/2021, 04/12/2021, Additional history exists DIABETES-URINE ALBUMIN/CREATININE EVERY 12 MONTHS 04/01/2022 04/01/2021, 07/16/2020, 06/06/2019 BASIC METABOLIC PANEL (BMP) FOR HTN YEARLY 06/04/2022 06/04/2021, 05/26/2021, 04/12/2021, Additional history exists CKD HGB USE SMARTSET 95998 06/04/202206/04, 06/04/2021, 05/26/2021, Additional history exists Dexa [...] as of this encounter Visit Diagnoses Diagnosis Bronchitis, complicated- Primary Bronchitis, not specified as acute or chronic Suspected COVID-19 virus infection documented in this encounter Advance Directives Documents on File Type Date Recorded 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
--- OUTSIDE RECORDS SUMMARY | 2022-12-17 03:29 | External Medical Summary ---
Author Name Unknown Address Unknown Organization K1F:LABORATORY [facility] - [address] [address] Laboratory Report Ordering Provider Test Date Status KIKI FUENTES 06/04/2021 06:30:07 Fin al Observation Date Value Abnormality Reference (Units ) Status Lactic Acid 06/04/2021 06:30:07 1.5 0.4-2.0 (mmol/L) Final Performing Location LABORATORY [facility] - [address] [address]
--- OUTSIDE RECORDS SUMMARY | 2022-12-17 03:30 | External Medical Summary ---
Author Name Unknown Address Unknown Organization K1F:LABORATORY [facility] - [address] [address] Laboratory Report Ordering Provider Test Date Status LILIA LANCASTER 04/12/2021 20:32:01 Final Observation Date Value Abnormality Reference (Units ) Status BUN 04/12/2021 20:32:01 13 6-20 (mg/dL) Final Creatinine 04/12/2021 20:32:01 1.0 0.5-1.0 (mg/dL) Final Glomerular filtration rate/1.73 sq M.predicted [Volume Rate/Area] in Serum, Plasma or Blood by Creatinine-based formula (CKD-EPI) 04/12/2021 20:32:01 54 Below low normal >=60 (mL/min) Final Performing Location LAB[facility]ATORY [facility] - [address] [address]
--- OUTSIDE RECORDS SUMMARY | 2022-12-17 03:30 | External Medical Summary ---
Author Name Unknown Address Unknown Organization K1F:LABORATORY [facility] - [address] [address] Laboratory Report Ordering Provider Test Date Status LILIA LANCASTER 04/12/2021 20:31:59 Final Observation Date Value Abnormality Reference (Units ) Status PT 04/12/2021 20:31:59 12.1 11.5-14.6 (seconds) Final INR 04/12/2021 20:31:59 0.87 0.84-1.14 Final Performing Location LAB[facility]ORY [facility] - [address] [address]
--- OUTSIDE RECORDS SUMMARY | 2022-12-17 03:30 | External Medical Summary | Summary of Care ---
Author Name Unknown Organization [place] [address] Care Team Providers Care Social Media Senior Associate Name Role Phone Elías Jade MD Primary Care Provider [phone] Reason for Visit * Reason Comments Outpatient Testing Encounter Details Date Type Department Care Team Description 04/01/2021 Laboratory Laboratory, [facility] [address] [place] [address] [facility] [address] [place] [address] Left heart failure (HCC); Bilateral edema of lower extremity; Stage 3a chronic kidney disease (HCC) Allergies Active Allergy Reactions Severity Noted Date Comments Eggs Or Egg-Derived Products Diarrhea 021 documented as of this encounter (statuses as of 04/01/2021) Medications Medication Sig Dispensed Refills Start Date [...] a day. 30 Tab 11 08/02/2020 Active metFORMIN HCl 1000 MG Oral Tablet (Glucophage)Indicati ons:Type 2 diabetes mellitus with stage 3a chronic kidney disease, without long-term current use of insulin (HCC) Take 1 Tab by mouth 2 times a day with morning and evening meals. 180 Tab 1 08/23/2020 Active busPIRone HCl 10 MG Oral Tablet [...] at bedtime. 90 Tablet 3 04/01/2021 Active documented as of this encounter (statuses as of 04/01/2021) Active Problems Problem Noted Date Left heart [...] as of this encounter (statuses as of 04/01/2021) Resolved Problems Problem Noted Date Resolved Date [...] as of this encounter (statuses as of 04/01/2021) Immunizations Name Administration Dates Next Due DTaP [...] Encounters Date Type Specialty Care Team Description 07/21/2021 Office Visit Family Medicine Allison Rodrigez PA-C Pending Results Name Type Priority Associated Diagnoses Date /Time COMPREHENSIVE METABOLIC PANEL Lab Routine Left heart failure (HCC) Bilateral edema of lower extremity 04/01/2021 10:46 AM EST BNP (NT-PROBNP) Lab Routine Left heart failure (HCC) Bilateral edema of lower extremity 04/01/2021 10:46 AM EST ALBUMIN / CREATININE RATIO, URINE Lab Routine Bilateral edema of lower extremity Stage 3a chronic kidney disease (HCC) 04/01/2021 10:49 AM EST Health Maintenance Due Date Last Done Comments COVID-19 Vaccine (1) 1950 CKD PHOS USE SMARTSET 47712 1962 Zoster Vaccines (1 of 2) 1994 Influenza Vaccine (FLU shot) (#1) 2020 07/15/2019, 02/22/2016, 03/08/2015 DIABETES-EYE EXAM 07/16/2021 07/16/2020, 06/30/2019 DIABETES-FOOT EXAM 07/16/2021 07/16/2020, 07/15/2019 DIABETES-HGBA1C EVERY 6 MONTHS 08/28/2021 02/28/2021, 01/20/2021, 10/06/2020, Additional history exists CKD GFR USE SMARTSET 48662 09/04/202103/07, 03/01/2021, 02/28/2021, Additional history exists CKD HGB USE SMARTSET 46870 03/07/202203/07, 03/07/2021, 03/01/2021, Additional history exists Dexa Scan 03/11/2026 03/11/2019 DTaP,Tdap,and Td Vaccines (3 - Td or Tdap) 03/09/2027 03/09/2017, 03/24/2009 Pneumococcal Vaccine: 65+ Years Completed 05/27/2019, 03/08/2015, 06/30/2014 MENINGOCOCCAL (MENACTRA/MENVEO) Aged Out No longer eligible based on patient's age to complete this topic documented as of this encounter Implants Not on filedocumented as of this encounter Visit Diagnoses Diagnosis Left heart failure (HCC) Left heart failure Bilateral edema of lower extremity Edema Stage 3a chronic kidney disease (HCC) documented in this encounter Advance Directives Documents on File Type Date Recorded 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
--- OUTSIDE RECORDS SUMMARY | 2022-12-17 03:30 | External Medical Summary | Summary of Care ---
Author Name Unknown [place] [address] Care Team Providers Care Health Information Director Name Role Phone Elías Jade MD Primary Care Provider [phone] Reason for Referral * Precert (Within 10 days (routine)) - Pending Review Specialty Diagnoses / Procedures Referred By Olivia torrez Referred To Contact Cardiac Studies Diagnoses Left heart failure (HCC) Left bundle branch block (LBBB) Uncontrolled hypertension Procedures ECHO, COMPLETE (2D), TRANS-THORAC[place] [address] Referral ID Status Reason Start Date Expiration Date Visits Requested Visits Authorized [id number] Pending Review Precert 04/05/2021 1 1 * Evaluate & Treat - Unlimited Visits (Within 3 days (urgent)) - Pending Review Specialty Diagnoses / Procedures Referred By Olivia torrez Referred To Contact Tax Record Clerk Diagnoses Left heart failure (HCC) Left bundle branch block (LBBB) Uncontrolled hypertension Elías Jade MD [address] [place] [address] Referral ID Status Reason Start Date Expiration Date Visits Requested Visits Authorized [id number] Pending Review Specialty Services Required 1 1 1 Question Answer Referral Priority Within 3 days (urgent) Role Agriscience Technology Instructor Agriscience Technology Instructor Referral Reason Heart Failure Comments New heart failure diagnosis made in hospital, patient not aware of it until appointment with me. Will need education on CHF, lasix, daily weights, etc. Reason for Visit * Reason Onset Date Comments Appointment 04/05/2021 echo Encounter Details Date Type Department Care Team Description 04/05/2021 Telephone [facility], [place] [address] [address] Elías Jade MD [address] [address] Appointment (echo) Allergies Active Allergy Reactions Severity Noted Date Comments Eggs Or Egg-Derived Products Diarrhea 021 documented as of this encounter (statuses as of 04/05/2021) Medications Medication Sig Dispensed Refills Start Date [...] mouth daily. 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 08/24/2020 Overview: Per CKD protocol Severe obesity with body mas s index (BMI) of 35.0 to 39.9 with serious comorbidity 07/16/2020 Stage 3a chronic kidney disease 02/23/20 Overview: Per CKD protocol - Per CKD [...] as of this encounter (statuses as of 04/05/2021) Resolved Problems Problem Noted Date Resolved Date [...] as of this encounter (statuses as of 04/05/2021) Immunizations Name Administration Dates Next Due DTaP [...] Miscellaneous Notes * Telephone Encounter - MANDY Santillan - 04/05/2021 7:41 AM EST Once pt is aware, route back to [facility] to schedule pt for an echo Pt has a referral for an echo, please contact pt to schedule an appt. * Telephone Encounter - Elías Jade MD - 04/05/2021 6:51 AM EST Labs reviewed; new heart failure from hospital worsening likely cause of dyspnea. [facility] referral, 20mg lasix daily, needs new echo to assess heart "squeeze" , daily weights. Needs education. Please let patient know that labs were otherwise stable, but her heart enzyme that shows heart failure is elevated. This is different from a lab to check for heart attack. Thanks! Elías Jade MD, PAULA Family Physician João Kingston documented in this encounter Plan of Treatment Upcoming Encounters Date Type Specialty Care Team Description 07/21/2021 Office Visit Family Medicine Allison Rodrigez PA-C Scheduled Orders Name Type Priority Associated Diagnoses Orde r Schedule ECHO, COMPLETE (2D), TRANS-THORACIC Echocardiology Routine Left heart failure (HCC) Left bundle branch block (LBBB) Uncontrolled hypertension Expected: 04/05/2021, Expires: 05/06/2023 Scheduled Referrals Name Type Priority Associated Diagnoses Orde r Schedule [facility] REFERRAL OP Referral Within 3 days (urgent) Left heart failure (HCC) Left bundle branch block (LBBB) Uncontrolled hypertension Ordered: 04/05/2021 Health Maintenance Due Date Last Done Comments COVID-19 Vaccine (1) 1950 CKD PHOS USE SMARTSET 59022 1962 Zoster Vaccines (1 of 2) 1994 Influenza Vaccine (FLU shot) (#1) 2020 07/15/2019, 02/22/2016, 03/08/2015 DIABETES-EYE EXAM 07/16/2021 07/16/2020, 06/30/2019 DIABETES-FOOT EXAM 07/16/2021 07/16/2020, 07/15/2019 DIABETES-HGBA1C EVERY 6 MONTHS 08/28/2021 02/28/2021, 01/20/2021, 10/06/2020, Additional history exists CKD GFR USE SMARTSET 42535 09/30/202104/01, 03/07/2021, 03/01/2021, Additional history exists CKD HGB USE SMARTSET 88935 03/07/202203/07, 03/07/2021, 03/01/2021, Additional history exists Dexa [...] heart failure Left bundle branch block (LBBB) Uncontrolled hypertension Unspecified essential hypertension documented in this encounter Advance Directives Documents on File Type Date Recorded Patient 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
--- OUTSIDE RECORDS SUMMARY | 2022-12-17 03:30 | External Medical Summary ---
Author Name Unknown Address Unknown Organization K1F:LABORATORY [facility] - [address] [place] [address] Laboratory Report Ordering Provider Test Date Status LILIA LANCASTER 04/12/2021 20:32:05 Final Observation Date Value Abnormality Reference (Units ) Status WBC, Total 04/12/2021 20:32:05 9.22 4.00-10.80 (K/uL) Final RBC 04/12/2021 20:32:05 4.44 3.85-5.15 (M/uL) Final Hemoglobin 04/12/2021 20:32:05 11.5 Below low normal 12.0-15.3 (g/dL) Final HCT 04/12/2021 20:32:05 38.3 36.0-45.2 (%) Final MCV 04/12/2021 20:32:05 86.3 81.5-97.5 (fL) Final MCH 04/12/2021 20:32:05 25.9 Below low normal 27.0-34.0 (pg) Final MCHC 04/12/2021 20:32:05 30.0 Below low normal 32.0-36.0 (g/dL) Final RDW 04/12/2021 20:32:05 14.9 11.5-15.5 (%) Final MPV 04/12/2021 20:32:05 11.1 6.6-11.1 (fL) Final Nucleated erythrocytes/100 leukocytes [Ratio] in Blood by Automated count 04/12/2021 20:32:05 0 <=0 (/100 WBCs) Final Platelets 04/12/2021 20:32:05 237 140-400 (K/uL) Final Performing Location [facility] - [address] [place] [address]
--- OUTSIDE RECORDS SUMMARY | 2022-12-17 03:30 | External Medical Summary ---
Author Name Unknown Address Unknown Organization K1F:LABORATORY [facility] - [address] [place] [address] Laboratory Report Ordering Provider Test Date Status RUSTAM SANCHEZ 05/26/2021 02:22:31 Final Observation Date Value Abnormality Reference (Units ) Status PT 05/26/2021 02:22:31 13.1 11.5-14.6 (seconds) Final INR 05/26/2021 02:22:31 0.97 0.84-1.14 Final Performing Location [facility] - [address] [place] [address]
--- OUTSIDE RECORDS SUMMARY | 2022-12-17 03:30 | External Medical Summary ---
Author Name Unknown Address Unknown Organization : Laboratory Report Ordering Provider Test Date Status LILIA LANCASTER 04/12/2021 20:17:32 Final Observation Date Value Abnormality Reference (Units ) Status Glucose Point of Care 04/12/2021 20:17:32 131 Above high normal 70-120 (mg/dL) Final Performing Location
--- OUTSIDE RECORDS SUMMARY | 2022-12-17 03:30 | External Medical Summary | Summary of Care ---
Author Name Unknown Organization [place] [address] Care Team Providers Care Plastic Surgery Technician Name Role Phone Allison Rodrigez PA-C Primary Care Provider [phone] Reason for Visit * Reason Onset Date Comments Appointment 02/09/2021 Encounter Details Date Type Department Care Team Description 02/09/[address] [facility] [address] [phone] Allison [facility] [place] [id number] Appointment Allergies Active Allergy Reactions Severity Noted Date Comments Eggs Or Egg-Derived Products Diarrhea 021 documented as of this encounter (statuses as of 03/07/2021) Medications Medication Sig Dispensed Refills Start Date [...] FOR ANXIETY 270 Tab 1 10/12/2020 Active Lisinopril 10 MG Oral Tablet (Prinivil)Indications :Stage 3a chronic kidney disease (HCC),HTN, goal below 140/90 Take 1 Tab by mouth daily. 90 Tab 1 01/20/2021 Active documented as of this encounter (statuses as of 03/07/2021) Active Problems Problem Noted Date Acute chest pain 02/28/2021 Left bundle branch [...] as of this encounter (statuses as of 03/07/2021) Resolved Problems Problem Noted Date Resolved Date [...] as of this encounter (statuses as of 03/07/2021) Immunizations Name Administration Dates Next Due DTaP [...] you have serious difficulty h earing? No 10/06/2020 Are you blind or do you have serious difficulty seeing, even when wearing glasses? No 10/06/2020 Do you have serious difficul ty walking or climbing stairs? (5 years old or older) No 10/06/2020 Do you have difficulty dress ing or bathing? (5 years old or older) No 10/06/2020 Because of a physical, menta l, or emotional condition, do you have difficulty doing errands alone such as visiting a doctor s office or shopping? (15 years old or older) No 10/07/19 21 Cognitive Status Response Date of Assessm ent Because of a physical, menta l, or emotional condition, do you have serious difficulty concentrating, remembering, or making decisions? (5 years old or older No 10/06/2020 documented as of this encounter Miscellaneous Notes * Telephone Encounter - KAHLIL Valera - 03/07/2021 12:12 PM EST Pt offered flu vaccine at today's visit, but declined. Pt will return to clinic in the near future to receive flu shot. * Telephone Encounter - KAHLIL Valrea - 02/09/2021 12:50 PM EDT Attempted to reach pt to schedule flu shot. I have received egg free flu vaccine for this pt. No answer, unable to leave a message. documented in this encounter Plan of Treatment Upcoming Encounters Date Type Specialty Care Team Description 07/21/2021 Office Visit Family Medicine Allison Rodrigez PA-C [address] [address] Health Maintenance Due Date Last Done Comments COVID-19 Vaccine (1) 1957 CKD PHOS USE SMARTSET 50887 1962 Zoster Vaccines (1 of 2) 1994 Influenza Vaccine (FLU shot) (#1) 2020 07/15/2019, 02/22/2016, 03/08/2015 DIABETES-EYE EXAM 07/16/2021 07/16/2020, 06/30/2019 DIABETES-FOOT EXAM 07/16/2021 07/16/2020, 07/15/2019 DIABETES-HGBA1C EVERY 6 MONTHS 08/28/2021 02/28/2021, 01/20/2021, 10/06/2020, Additional history exists CKD GFR USE SMARTSET 53748 09/04/202103/07, 03/01/2021, 02/28/2021, Additional history exists CKD HGB USE SMARTSET 72747 03/07/202203/07, 03/07/2021, 03/01/2021, Additional history exists Dexa [...] Documents on File Type Date Recorded Patient County Agent 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 Advance Directives occurred with: Patient Care Teams Plastic Surgery Technician Relationship Specialty Start Date End Date Allison Rodrigez PA-C [facility] [address] [place] [id number] PCP - General Physician Back Strip Machine Operator 07/16/20 documented as of this encounter
--- OUTSIDE RECORDS SUMMARY | 2022-12-17 03:30 | External Medical Summary | Summary of Care ---
Author Name Unknown [place] [address] Care Team Providers Care Multimedia Author Name Role Phone Elías Jade MD Primary Care Provider [phone] Reason for Referral * Precert (Within 10 days (routine)) - Pending Review Specialty Diagnoses / Procedures Referred By Olivia torrez Referred To Contact Cardiac Studies Diagnoses Left heart failure (HCC) Left bundle branch block (LBBB) Uncontrolled hypertension Procedures ECHO, COMPLETE (2D), TRANS-THORACIC [place] [address] Referral ID Status Reason Start Date Expiration Date Visits Requested Visits Authorized [id number] Pending Review Precert 04/05/2021 1 1 * Evaluate & Treat - Unlimited Visits (Within 3 days (urgent)) - Pending Review Specialty Diagnoses / Procedures Referred By Olivia torrez Referred To Contact Clinical Exercise Specialist Diagnoses Left heart failure (HCC) Left bundle branch block (LBBB) Uncontrolled hypertension Elías Jade MD [address] [place] [address] Referral ID Status Reason Start Date Expiration Date Visits Requested Visits Authorized [id number] Pending Review Specialty Services Required 1 1 1 Question Answer Referral Priority Within 3 days (urgent) Role Poacher Operator Poacher Operator Referral Reason Heart Failure Comments New heart failure diagnosis made in hospital, patient not aware of it until appointment with me. Will need education on CHF, lasix, daily weights, etc. Encounter Details Date Type Department Care Team Description 04/05/2021 Telephone [facility], [place] [address] [address] Elías Jade MD [address] [id number] Allergies Active Allergy Reactions Severity Noted Date [...] from hospital worsening likely cause of dyspnea. [facility] referral, 20mg lasix daily, needs new echo [...] Vaccine (1) 1950 CKD PHOS USE SMARTSET 43376 1962 Zoster Vaccines (1 of 2) 1994 Influenza Vaccine (FLU shot) (#1) 2020 07/15/2019, 02/22/2016, 03/08/2015 DIABETES-EYE EXAM 07/16/2021 07/16/2020, 06/30/2019 DIABETES-FOOT EXAM 07/16/2021 07/16/2020, 07/15/2019 DIABETES-HGBA1C EVERY 6 MONTHS 08/28/2021 02/28/2021, 01/20/2021, 10/06/2020, Additional history exists CKD GFR USE SMARTSET 06942 09/30/202104/01, 03/07/2021, 03/01/2021, Additional history exists CKD HGB USE SMARTSET 83965 03/07/202203/07, 03/07/2021, 03/01/2021, Additional history exists Dexa [...] Documents on File Type Date Recorded Patient Police Communications Dispatcher 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 Advance Directives occurred with: Patient Care Teams Multimedia Author Relationship Specialty Start Date End Date Elías Jade MD [address] [place] [id number] PCP - General Family Medicine 04/01/21 documented as of this encounter
--- OUTSIDE RECORDS SUMMARY | 2022-12-17 03:30 | External Medical Summary ---
Author Name Unknown Address Unknown Organization K01:LABORATORY [facility] - [address] [place] [address] Laboratory Report Ordering Provider Test Date Status OFELIA GONSALEZ 04/01/2021 10:49:06 Final Observation Date Value Abnormality Reference (Units ) Status Albumin, Urine 04/01/2021 10:49:06 10.14 (mg/dL) Final Creatinine, Urine 04/01/2021 10:49:06 117 (mg/dL) Final Albumin/Creatinine [Mass Ratio] in Urine 04/01/2021 10:49:06 87 Above high normal <30 (mg/g Creat) Final Performing Location LABORATORY [facility] - [address] [place] [address]
--- OUTSIDE RECORDS SUMMARY | 2022-12-17 03:30 | External Medical Summary ---
Author Name Unknown Address Unknown Organization K1F:LABORATORY [facility] - [address] [place] [address] Laboratory Report Ordering Provider Test Date Status RUSTAM SANCHEZ 05/26/2021 02:22:31 Final Observation Date Value Abnormality Reference (Units ) Status aPTT panel - Platelet poor plasma 05/26/2021 02:22:31 29 21-38 (seconds) Final Performing Location [facility] - [address] [place] [address]
--- OUTSIDE RECORDS SUMMARY | 2022-12-17 03:30 | External Medical Summary | Summary of Care ---
Author Name Unknown [place] [address] Care Team Providers Care Launch Manager Name Role Phone Elías Jade MD Primary Care Provider [phone] Reason for Referral * Precert (Within 10 days (routine)) - Pending Review Specialty Diagnoses / Procedures Referred By Olivia torrez Referred To Contact Cardiac Studies Diagnoses Left heart failure (HCC) Left bundle branch block (LBBB) Uncontrolled hypertension Procedures ECHO, COMPLETE (2D), TRANS-THORACIC [place] [address] Referral ID Status Reason Start Date Expiration Date Visits Requested Visits Authorized [id number] Pending Review Precert 04/05/2021 1 1 * Evaluate & Treat - Unlimited Visits (Within 3 days (urgent)) - Pending Review Specialty Diagnoses / Procedures Referred By Olivia torrez Referred To Contact Real Estate Professor Diagnoses Left heart failure (HCC) Left bundle branch block (LBBB) Uncontrolled hypertension Elías Jade MD [address] [place] [address] Referral ID Status Reason Start Date Expiration Date Visits Requested Visits Authorized [id number] Pending Review Specialty Services Required 1 1 1 Question Answer Referral Priority Within 3 days (urgent) Role Telegraph Operator Telegraph Operator Referral Reason Heart Failure Comments New heart failure diagnosis made in hospital, patient not aware of it until appointment with me. Will need education on CHF, lasix, daily weights, etc. Reason for Visit * Reason Onset Date Comments Appointment 04/05/2021 echo 04/05 Encounter Details Date Type Department Care Team Description 04/05/2021 Telephone [facility] [place] [address] [address] Elías Jade MD [address] [address] Appointment (echo 04/05) Allergies Active Allergy Reactions Severity Noted Date [...] * Telephone Encounter - MANDY Zavala - 04/05/2021 9:39 AM EST Spoke to PT and scheduled Echo. * Telephone Encounter - Anne-Marie Almonte LPN - 04/05/2021 9:32 AM EST Pt aware of below message, please schedule ECHO. * Telephone Encounter - MANDY Santillan - [...] Encounters Date Type Specialty Care Team Description 04/22/2021 Appointment Cardiac Studies 07/21/2021 Office Visit Family Medicine Allison Rodrigez [...] Last Done Comments COVID-19 Vaccine (1) 1950 Depression Screening, Annual for Pts 12 and Over 1957 CKD PHOS USE SMARTSET 28060 1962 Zoster Vaccines (1 of 2) 1994 Influenza Vaccine (FLU shot) (#1) 2020 07/15/2019, 02/22/2016, 03/08/2015 DIABETES-EYE EXAM 07/16/2021 07/16/2020, 06/30/2019 DIABETES-FOOT EXAM 07/16/2021 07/16/2020, 07/15/2019 DIABETES-HGBA1C EVERY 6 MONTHS 08/28/2021 02/28/2021, 01/20/2021, 10/06/2020, Additional history exists CKD GFR USE SMARTSET 32894 09/30/202104/01, 03/07/2021, 03/01/2021, Additional history exists CKD HGB USE SMARTSET 15281 03/07/202203/07, 03/07/2021, 03/01/2021, Additional history exists Dexa [...] Documents on File Type Date Recorded Patient Vocational Rehabilitation Counselor 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 Advance Directives occurred with: Patient Care Teams Launch Manager Relationship Specialty Start Date End Date Elías Jade MD [address] [address] PCP - General Family Medicine 04/01/21 documented as of this encounter
--- OUTSIDE RECORDS SUMMARY | 2022-12-17 03:30 | External Medical Summary ---
Author Name Unknown Address Unknown Organization K01:[facility]ORY [facility] [place] - [address] [place] [address] Laboratory Report Ordering Provider Test Date Status OFELIA GONSALEZ 04/01/2021 10:46:19 Final Observation Date Value Abnormality Reference (Units ) Status BNP, Pro-hormone 04/01/2021 10:46:19 2641 Above high no rmal <300 (pg/mL) Final Performing Location LAB[facility]ATORY [facility] - [address] [place] [address]
--- OUTSIDE RECORDS SUMMARY | 2022-12-17 03:30 | External Medical Summary | Summary of Care ---
Author Name Unknown Organization [facility] [place] [address] Care Team Providers Care Physiologist Name Role Phone Elías Jade MD Primary Care Provider [phone] Reason for Visit * Reason Comments Edema c/o edema to both fe et/ankles x sev days Encounter Details Date Type Department Care Team Description 04/01/2021 Office Visit [facility] 21 [facility] [place] [address] Elías Jade MD 21 [facility] [place] [id number] Left heart failure (HCC)*; Bilateral edema of lower extremity; Stage 3a chronic kidney disease (HCC); HTN, [...] UNDER THE TONGUE DAILY 30 Tab 11 1 Active Zoster Vac Recomb Adjuvanted 50 MCG/0.5ML Intramuscular Suspension Reconstituted (Shingrix)Indicat ions:Need for vaccination for zoster Inject 0.5 mL into a large muscle now and repeat dose in 60 to 180 days 1 Each 1 1 Active Additional Information Patient not taking. Reported on 02/28/2021 Metoprolol Tartrate 25 MG Oral Tablet (Lopressor) Take 0.5 Tabs by mouth 2 times a day. 30 Tab 11 1 Active metFORMIN HCl 1000 MG Oral Tablet (Glucophage)Indic ations:Type 2 diabetes mellitus with stage 3a chronic kidney disease, without long-term current use of insulin (HCC) Take 1 Tab by mouth 2 times a day with morning and evening meals. 180 Tab 1 1 Active busPIRone HCl 10 MG Oral Tablet (Buspar)Indicatio ns:ADRIANA (generalized anxiety disorder) TAKE ONE TABLET BY MOUTH THREE TIMES A DAY NEEDED FOR ANXIETY 270 Tab 1 1 Active Atorvastatin Calcium 80 MG Oral Tablet (Lipitor)Indicati ons:Dyslipidemia, goal LDL below 100 Take 1 Tablet by mouth at bedtime. 90 Tablet 3 1 Active Escitalopram Oxalate 10 MG Oral Tablet (Lexapro)Indicati ons:ADRIANA (generalized anxiety disorder) Take 1 Tablet by mouth daily. 90 Tablet 1 1 Active Lisinopril 20 MG Oral Tablet (Prinivil)Indicat ions:Stage 3a chronic kidney disease (HCC),HTN, goal below 140/90 Take 1 Tablet by mouth every night at bedtime. 90 Tablet 3 1 Active Lisinopril 10 MG Oral Tablet (Prinivil)Indicat ions:Stage 3a chronic kidney disease (HCC),HTN, goal below 140/90 Take 1 Tab by mouth daily. 90 Tab 1 1 04/01/20 21 Discontinued Famotidine 20 MG Oral Tablet (Pepcid) Take 1 Tablet by mouth every night at bedtime. 34 Tablet 0 1 04/01/20 21 Discontinued(Pat ient preference/disco ntinuation) documented as of this encounter (statuses as [...] Sign Reading Time Taken Comments Blood Pressure 154/74 04/01/2021 10:02 AM EST Pulse 72 04/01/2021 10:02 AM EST Temperature 36.7 C (98.1 F) 04/01/2021 1 0:02 AM EST Respiratory Rate 16 04/01/2021 10:0 2 AM EST Oxygen Saturation 96% 04/01/2021 10: 02 AM EST Inhaled Oxygen Concentration - - Weight 103.3 kg (227 lb 11.2 oz) 2020 10:02 AM EST Height - - Body Mass Index 36.75 03/07/2021 1:07 AM EST documented in this encounter Functional [...] * Patient Instructions* Elías Jade MD - 04/01/2021 10:31 AM EST CHF: Importance of Daily weights: Please get a scale to weight yourself each morning. You should wake up, put on your compression stockings, use the bathroom, then weight yourself before eating or drinking anything. If you notice that your weight is up 3lbs from the prior day, please take an extra dose of your water pill (lasix 40mg) in the afternoon around 4:00. Limit salt intake. Keep legs elevated as able. supervisor in circuit testing compression stockings at [facility] or the local pharmacy to help squeeze the fluid back into your legs. If labs are abnormal, will give you a water pill documented in this encounter Progress Notes * Elías Jade MD - 04/01/2021 10:14 AM EST Subjective Sahra Rodríguez is a 75 year old female that presents for Edema (c/o edema to both feet/ankles x sev days) Edema both feet and ankles x several days. Not worse, but no better since then. Elevation of legs doesn't make much of a difference. Was in hospital in February, primary dx Left heart failure, she reports it was all anxiety. Nuclearstress at that time with EF 50%. Not started on diuretic. BNP >1000 at that time. Objective BP 154/74 | Pulse 72 | Temp 36.7 C (98.1 F) (Tympanic) | Resp 16 | Wt 103.3 kg (227 lb 11.2 oz)| SpO2 96% | No | BMI 36.75 kg/m | BSA 2.19 m Body mass index is 36.75 kg/m. BP Readings from Last 3 Encounters: 04/01/21 154/74 03/07/21 132/64 03/07/21 148/64 Wt Readings from Last 3 Encounters: 04/01/21 103.3 kg (227 lb 11.2 oz) 03/07/21 103.5 kg (228 lb 1.6 oz) 03/07/21 104.3 kg (229 lb 14.4 oz) Physical Exam Vitals and nursing note reviewed. Constitutional: General: She is not in acute distress. Appearance: She is obese. She is not ill-appearing or diaphoretic. HENT: Head: Normocephalic and atraumatic. Right Ear: External ear normal. Left Ear: External ear normal. Ears: Comments: Hard of hearing, forgot hearing aids Nose: Nose normal. Eyes: Conjunctiva/sclera: Conjunctivae normal. Pupils: Pupils are equal, round, and reactive to light. Cardiovascular: Rate and Rhythm: Normal rate and regular rhythm. Pulses: Normal pulses. Heart sounds: Normal heart sounds. No murmur heard. No gallop. Pulmonary: Effort: Pulmonary effort is normal. No respiratory distress. Breath sounds: Normal breath sounds. No wheezing, rhonchi or rales. Abdominal: General: Bowel sounds are normal. Palpations: Abdomen is soft. Tenderness: There is no abdominal tenderness. There is no guarding. Musculoskeletal: Cervical back: Neck supple. No tenderness. No muscular tenderness. Right lower leg: Edema (trace) present. Left lower leg: Edema (trace) present. Lymphadenopathy: Cervical: No cervical adenopathy. Skin: General: Skin is warm and dry. Findings: No rash. Neurological: General: No focal deficit present. Mental Status: She is alert and oriented to person, place, and time. Gait: Gait normal. Psychiatric: Mood and Affect: Mood normal. Thought Content: Thought content normal. The following labs were reviewed today: CBC, CMP, Urine Microalbumin and BNP Assessment and plan Left heart failure (HCC) Bilateral edema of lower extremity Pt unaware of dx of heart failure while in hospital. Will repeat labs today. IF elevated, will start 20mg lasix prn. Daily weights, salt intake restricted, elevate feet and wear compression stockings - Comprehensive Metabolic Panel; Future - BNP (NT-proBNP); Future - Albumin / Creatinine Ratio, Urine; Future Stage 3a chronic kidney disease (HCC) Recently had protein in urine. Will assess for nephrotic causes. - Albumin / Creatinine Ratio, Urine; Future - Lisinopril; Take 1 Tablet by mouth every night at bedtime. HTN, goal below 140/90 Chronic, elevated today to 150-160 systolic. Will start 20mg lisinopril at bedtime, up from 10 eachmorning. - Lisinopril; Take 1 Tablet by mouth every night at bedtime. Follow up Total time today including reviewing chart before the visit, pertinent labs, imaging reports, face to face time, and documentation time was 32 minutes. The above was discussed and understanding was expressed. Elías Jade MD documented in this encounter Nursing Notes * Dylan Chong LPN - 04/01/2021 10:03 AM EST Chief Complaint Patient presents with Edema c/o edema to both feet/ankles x sev days documented in this encounter Plan of [...] kidney disease (HCC) 04/01/2021 10:49 AM EST Scheduled Orders Name Type Priority Associated Diagnoses Orde r Schedule COMPREHENSIVE METABOLIC PANEL Lab Routine Left heart failure (HCC) Bilateral edema of lower extremity Expected: 04/01/2021 (Approximate), Expires: 04/01/2022 BNP (NT-PROBNP) Lab Routine Left heart failure (HCC) Bilateral edema of lower extremity Expected: 04/01/2021 (Approximate), Expires: 04/01/2022 ALBUMIN / CREATININE RATIO, URINE Lab Routine Bilateral edema of lower extremity Stage 3a chronic kidney disease (HCC) Expected: 04/01/2021 (Approximate), Expires: 04/01/2022 Health Maintenance Due Date Last Done Comments COVID-19 Vaccine (1) 1950 CKD PHOS USE SMARTSET 23627 1962 Zoster Vaccines (1 of 2) 1994 Influenza Vaccine (FLU shot) (#1) 2020 07/15/2019, 02/22/2016, 03/08/2015 DIABETES-EYE EXAM 07/16/2021 07/16/2020, 06/30/2019 DIABETES-FOOT EXAM 07/16/2021 07/16/2020, 07/15/2019 DIABETES-HGBA1C EVERY 6 MONTHS 08/28/2021 02/28/2021, 01/20/2021, 10/06/2020, Additional history exists CKD GFR USE SMARTSET 72671 09/04/202103/07, 03/01/2021, 02/28/2021, Additional history exists CKD HGB USE SMARTSET 60524 03/07/202203/07, 03/07/2021, 03/01/2021, Additional history exists Dexa [...] heart failure (HCC)- Primary Left heart failure Bilateral edema of lower extremity Edema Stage 3a chronic kidney disease (HCC) HTN, goal below 140/90 Unspecified essential hypertension documented in this encounter Advance Directives Documents on File Type Date Recorded 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
--- OUTSIDE RECORDS SUMMARY | 2022-12-17 03:30 | External Medical Summary | Summary of Care ---
Author Name [place] [address] Care Team Providers Care Budget Clerk Name Role Phone Elías Jade MD Primary Care Provider [phone] [phone] Reason for Visit * Reason Onset Date Comments Referral 04/05/2021 Encounter Details Date Type Department Care Team Description 04/05/2021 Telephone Care Coordination [address], [place] [id number] Elías Jade MD [address] [place], [place] [id number] Referral Allergies Active Allergy Reactions Severity Noted Date [...] encounter Miscellaneous Notes * Telephone Encounter - Chloe Rosenbaum LPN - 04/05/2021 7:30 AM EST [facility] you [facility] outpatient case management team. Unfortunately, this patient does not meet insurance criteria for our staff to provide outpatient case management services. Please follow up with patient as necessary. Patient must have GHP or Medicare A and B Patient has [employer] Medicare Advantage documented in this encounter Plan of Treatment Upcoming Encounters Date Type Specialty Care Team Description 07/21/2021 Office Visit Family Medicine Allison Rodrigez PA-C Health Maintenance Due Date Last Done Comments COVID-19 Vaccine (1) 1950 CKD PHOS USE SMARTSET 00993 1962 Zoster Vaccines (1 of 2) 1994 Influenza Vaccine (FLU shot) (#1) 2020 07/15/2019, 02/22/2016, 03/08/2015 DIABETES-EYE EXAM 07/16/2021 07/16/2020, 06/30/2019 DIABETES-FOOT EXAM 07/16/2021 07/16/2020, 07/15/2019 DIABETES-HGBA1C EVERY 6 MONTHS 08/28/2021 02/28/2021, 01/20/2021, 10/06/2020, Additional history exists CKD GFR USE SMARTSET 28908 09/30/202104/01, 03/07/2021, 03/01/2021, Additional history exists CKD HGB USE SMARTSET 01274 03/07/202203/07, 03/07/2021, 03/01/2021, Additional history exists Dexa [...] Documents on File Type Date Recorded 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
--- OUTSIDE RECORDS SUMMARY | 2022-12-17 03:30 | External Medical Summary ---
Author Name Unknown Address Unknown Organization [id number]:[facility] - [address] [place] [address] Laboratory Report Ordering Provider Test Date Status RUSTAM SANCHEZ 05/26/2021 02:22:34 Final Observation Date Value Abnormality Reference (Units ) Status SYNC LEUKOCYTES IN BLOOD BY AUTOMATED COUNT 05/26/2021 02:22:34 5.33 4.00-10.80 (K/uL) Final Segs 05/26/2021 02:22:34 80.1 Above high normal 40.0-75.0 (%) Final Lymphs % 05/26/2021 02:22:34 8.6 Below low normal 18.0-42.0 (%) Final Monos 05/26/2021 02:22:34 9.6 1.0-11.0 (%) Final Eosinophils 05/26/2021 02:22:34 0.9 0.0-6.0 (%) Final Basos 05/26/2021 02:22:34 0.6 0.0-2.0 (%) Final Immature Granulocyte, Percent 05/26/2021 02:22:34 0.2 0.0-2.0 (%) Final Absolute Segs 05/26/2021 02:22:34 4.27 1.80-7.70 (K/uL) Final Lymphs, absolute 05/26/2021 02:22:34 0.46 Below low normal 1.00-4.80 (K/ul) Final Monos, Abs 05/26/2021 02:22:34 0.51 0.00-1.10 (K/uL) Final Eos, Abs 05/26/2021 02:22:34 0.05 0.00-0.70 (K/uL) Final Basos, Abs 05/26/2021 02:22:34 0.03 0.00-0.20 (K/uL) Final Immature Granulocytes, Number 05/26/2021 02:22:34 0.01 0.00-0.20 (K/uL) Final Performing Location [facility] - [facility] [address] [place] [address]
--- OUTSIDE RECORDS SUMMARY | 2022-12-17 03:30 | External Medical Summary ---
Author Name Unknown Address Unknown Organization K01:[facility] [place] - [address] [place] [address] Laboratory Report Ordering Provider Test Date Status OFELIA GONSALEZ 04/01/2021 10:46:19 Final Observation Date Value Abnormality Reference (Units ) Status BUN 04/01/2021 10:46:19 11 6-20 (mg/dL) Final Creatinine 04/01/2021 10:46:19 1.2 Above high normal 0.5-1.0 (mg/dL) Final Glomerular filtration rate/1.73 sq M.predicted [Volume Rate/Area] in Serum, Plasma or Blood by Creatinine-based formula (CKD-EPI) 04/01/2021 10:46:19 43 Below low normal >=60 (mL/min) Final Performing Location [facility] [place] - [address] [place] [address]
--- OUTSIDE RECORDS SUMMARY | 2022-12-17 03:30 | External Medical Summary | Summary of Care ---
Author Name Unknown [place] [address] Care Team Providers Care Farmworker Fryer Farm Name Role Phone Elías Jade MD Primary Care Provider [phone] Reason for Referral * Precert (Within 10 days (routine)) - Pending Review Specialty Diagnoses / Procedures Referred By Olivia torrez Referred To Contact Cardiac Studies Diagnoses Left heart failure (HCC) Left bundle branch block (LBBB) Uncontrolled hypertension Procedures ECHO, COMPLETE (2D), TRANS-THORACIC [place] [address] Referral ID Status Reason Start Date Expiration Date Visits Requested Visits Authorized [id number] Pending Review Precert 04/05/2021 1 1 * Evaluate & Treat - Unlimited Visits (Within 3 days (urgent)) - Pending Review Specialty Diagnoses / Procedures Referred By Olivia torrez Referred To Contact Fish Conservationist Diagnoses Left heart failure (HCC) Left bundle branch block (LBBB) Uncontrolled hypertension Elías Jade MD [address] [place] [address] Referral ID Status Reason Start Date Expiration Date Visits Requested Visits Authorized [id number] Pending Review Specialty Services Required 1 1 1 Question Answer Referral Priority Within 3 days (urgent) Role Service Consultant Service Consultant Referral Reason Heart Failure Comments New heart failure diagnosis made in hospital, patient not aware of it until appointment with me. Will need education on CHF, lasix, daily weights, etc. Reason for Visit * Reason Onset Date Comments Appointment 04/05/2021 echo 04/05 Encounter Details Date Type Department Care Team Description 04/05/2021 Telephone [facility] [place] [address] Elías Jade MD 21 [...] branch block (LBBB) 02/29/20 Uncontrolled hypertension 02/28/2021 AMNDY (obstructive sleep apnea) 10/06/2020 Type 2 diabetes [...] encounter Miscellaneous Notes * Telephone Encounter - Anne-Marie Almonte LPN - 04/05/2021 9:32 AM EST Pt aware of below message, please schedule ECHO. * Telephone Encounter - MANDY Santillan - 04/05/2021 7:41 AM EST Once pt is aware, route back to sr pars to schedule pt for an echo [...] and Over 1957 CKD PHOS USE SMARTSET 37686 1962 Zoster Vaccines (1 of 2) 1994 Influenza Vaccine (FLU shot) (#1) 2020 07/15/2019, 02/22/2016, 03/08/2015 DIABETES-EYE EXAM 07/16/2021 07/16/2020, 06/30/2019 DIABETES-FOOT EXAM 07/16/2021 07/16/2020, 07/15/2019 DIABETES-HGBA1C EVERY 6 MONTHS 08/28/2021 02/28/2021, 01/20/2021, 10/06/2020, Additional history exists CKD GFR USE SMARTSET 74169 09/30/202104/01, 03/07/2021, 03/01/2021, Additional history exists CKD HGB USE SMARTSET 90936 03/07/202203/07, 03/07/2021, 03/01/2021, Additional history exists Dexa [...] Documents on File Type Date Recorded Patient 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
--- OUTSIDE RECORDS SUMMARY | 2022-12-17 03:30 | External Medical Summary | Summary of Care ---
Author Name Unknown Organization [facility] [place] [address] Care Team Providers Care Insole Rounder Name Role Phone Allison Rodrigez PA-C Primary Care Provider [phone] Reason for Visit * Reason Onset Date Comments Hospital Follow-Up [facility] 02/28- acute chest pain Hospital Follow-Up 03/07/2021 Encounter Details Date Type Department Care Team Description 03/07/2021 Office Visit [facility] [place] [id number] Allison Rodrigez PA-C 21 [facility] [place] [id number] Hospital discharge follow-up*; ADRIANA (generalized anxiety disorder); Heart failure, unspecified HF chronicity, unspecified heart failure type (HCC) Allergies Active Allergy Reactions Severity Noted [...] 10/12/2020 Active Lisinopril 10 MG Oral Tablet (Prinivil)Indicati ons:Stage 3a chronic kidney disease (HCC),HTN, goal below 140/90 Take 1 Tab by mouth daily. 90 Tab 1 01/20/2021 Active Atorvastatin Calcium 80 MG Oral Tablet (Lipitor)Indicatio ns:Dyslipidemia, goal LDL below 100 Take 1 Tablet by mouth at bedtime. 90 Tablet 3 03/02/2021 Active Famotidine 20 MG Oral Tablet (Pepcid) Take 1 Tablet by mouth every night at bedtime. 34 Tablet 0 03/07/2021 Active Escitalopram Oxalate 10 MG Oral Tablet (Lexapro)Indicatio ns:ADRIANA (generalized anxiety disorder) Take 1 Tablet by mouth daily. 90 Tablet 1 03/07/2021 Active Escitalopram Oxalate 5 MG Oral Tablet (Lexapro)Indicatio ns:ADRIANA (generalized anxiety disorder) Take 1 Tab by mouth daily. 90 Tab 1 10/12/2020 03/07/20 21 Discontinued documented as of this encounter (statuses [...] Sign Reading Time Taken Comments Blood Pressure 132/64 03/07/2021 11:21 AM EST Pulse 68 03/07/2021 11:21 AM EST Temperature 37.3 C (99.1 F) 03/07/2021 1 1:21 AM EST Respiratory Rate 18 03/07/2021 11:2 1 AM EST Oxygen Saturation 95% 03/07/2021 11: 21 AM EST Inhaled Oxygen Concentration - - Weight 103.5 kg (228 lb 1.6 oz) 021 11:21 AM EST Height - - Body Mass Index 36.82 03/07/2021 1:07 AM EST documented in this [...] as of this encounter Progress Notes * Allison Rodrigez PA-C - 03/07/2021 11:34 AM EST Subjective Sahra Rodríguez is a 75 year old female that presents for Hospital Follow-Up ([facility] 02/28-03/01 acute chest pain) and Hospital Follow-Up Nursing Notes: [facility] 1122 Signed Chief Complaint Patient presents with Hospital Follow-Up [facility] 02/28-03/01 acute chest pain HPI VSS today Patient was admitted to [facility] from 02/28 to 03/01/21 for acute chest pain. 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 Denies diaphoresis, nausea/vomiting withthe chest pressure. History of anxiety and felt anxious with episode this AM. She tried her anti-anxiety medication (Buspar)at home but this did not alleviate her chest pressureso she came infor further evaluation and treatment. AVR completed at [facility] -- reports that she returns there annually for evaluation/check-up. Notes that she follows with cardiology in [place] annually with last visit February 2020, scheduled follow-up for next week. Denies ever being told that she has heart failure. Patient reports that she has had two stress tests at [facility] in the past which she thinks were negative but nothingrecently. Admitted here 10/05/20 through 10/06/20 for chest pain felt to be due to anxiety. During this admission she had no events on telemetry, troponins flat, cardiology consult. Cardiology were not concerned with her presentation and work-up, recommended TTE as out-patient and follow-up. It appears that this was not scheduled/completed as patient has no previous TTE reports in [facility] and it appears that the cardiology appointment was scheduled for 11/03/20 but patient cancelled and did not reschedule. Psych was consulted during September admission and psych medications were adjusted. She had a routine PCP follow-up on 01/20/21 where she was noted to be hypertensive so lisinopril wasadded and she denied any chest pain/pressure, type 2 diabetes with A1C 7.6, MANDY does not use CPAP, ADRIANA on buspirone and lexapro. With start of lisinopril, she was to return in 2 weeks for BP check -- recorded as 138/74, HR 64 on 02/03/21. In ED today on presentation she was noted to be hypertensive at 201/84. Troponin 20 with delta troponin 20, BNP elevated to 1800 but no previous to compare and no prior ECHO to review. Chest pain/pressure relieved with 1 SL NTG. CXR concerning for volume overload so treated with furosemide 40mg IV X 1 with + diuresis in ED. Concern that she has heart failure and volume overload from uncontrolled HTN. Pain remains resolved. Nitropaste was applied for BP 177/81 to treat HTN. EKG reflective of left BBB same as September of this year. Requested admission for chest pain/pressure likelynot secondary to ACS but rule out, hypertensive management, baseline ECHO, and cardiology consult. HOSPITAL COURSE (focused): Troponin was elevated at 20 but remained flat. EKG did not show any ACS. Patient was evaluated by Cardiology. Echo report noted below. Stress test was negative for ischemia. Patient's chest pain resolved. Patient discharged to follow-up with cardiology outpatient RECOMMENDED TO DO FOR NEXT PROVIDER(S): Dr. Allison Rodrigez PA-C (or Covering PCP), Continue management of chronic medical problems She was also seen in [facility] ER earlier today at 1:00am for chest pain. She was discharged, but no ER note available at this time. It appears famotidine was given. Labs showed unremarkable troponin and CXR. Today patient reports she is doing ok since hospital discharge. Aside from ER visit this morning, no episodes of chest pain since discharge from hospital. She is taking her medications as prescribed. She does not have f/u with cardiology scheduled yet but plans to call - follows with dumb waiter operator in [place]. She thinks a big contributor to her symptoms is anxiety and stress. Has a strained relationship with two daughters and her grandchildren - they have not spoken in 2 years. This causes patient distress. She has a son and another daughter who are very supportive and she can talk to. Also has a friend she can talk to. Taking Lexapro 5 mg daily. Also takes buspirone 10 mg once daily, and occasionally takes twice daily as needed. Declines counseling referral at this time. Objective BP 132/64 | Pulse 68 | Temp 37.3 C (99.1 F) (Tympanic) | Resp 18 | Wt 103.5 kg (228 lb 1.6 oz) | SpO2 95% | BMI 36.82 kg/m | BSA 2.2 m Body mass index is 36.82 kg/m. BP Readings from Last 3 Encounters: 03/07/21 132/64 03/07/21 148/64 03/01/21 132/76 Wt Readings from Last 3 Encounters: 03/07/21 103.5 kg (228 lb 1.6 oz) 03/07/21 104.3 kg (229 lb 14.4 oz) 02/28/21 103 kg (227 lb 1.2 oz) Physical Exam Constitutional: General: She is not in acute distress. Appearance: She is obese. She is not ill-appearing or diaphoretic. HENT: Head: Normocephalic and atraumatic. Right Ear: External ear normal. Left Ear: External ear normal. Ears: Comments: Hearing aids Nose: Nose normal. Mouth/Throat: Mouth: Mucous membranes are moist. Pharynx: Oropharynx is clear. No oropharyngeal exudate or posterior oropharyngeal erythema. Eyes: Conjunctiva/sclera: Conjunctivae normal. Pupils: Pupils are [...] tenderness. No muscular tenderness. Right lower leg: No edema. Left lower leg: No edema. Lymphadenopathy: Cervical: No cervical adenopathy. Skin: General: Skin is warm and dry. Findings: No rash. Neurological: General: No focal deficit present. Mental Status: She is alert and oriented to person, place, and time. Gait: Gait normal. Psychiatric: Mood and Affect: Mood normal. Thought Content: Thought content normal. Comments: Tearful when discussing family conflict The following labs were reviewed today: BMP, CBC and Hepatic Panel Assessment and plan Hospital discharge follow-up Doing well overall since discharge. Encouraged to schedule hospital f/u with her dumb waiter operator - she plans to call. Continue cardiac medications as prescribed. Suspect her anxiety and stress are contributing to her symptoms. - DISCH MED RECON CUR MED LIS ADRIANA (generalized anxiety disorder) Increase Lexapro as below. Encouraged to continue talking to daughter and son and friend. Encouraged to try walking outside a few days per week to help with her mental health. She plans to get more involved with her latter day community as well. - Escitalopram Oxalate; Take 1 Tablet by mouth daily. Heart failure, unspecified HF chronicity, unspecified heart failure type (HCC) Continue to monitor Follow up Follow Up: Return if symptoms worsen or fail to improve. Total time today including reviewing chart before the visit, pertinent labs, imaging reports, face to face time, and documentation time was 38 minutes. The above was discussed and understanding was expressed. Allison Rodrigez PA-C documented in this encounter Nursing Notes * KAHLIL Valera - 03/07/2021 11:21 AM EST Chief Complaint Patient presents with Hospital Follow-Up [facility] 02/28-03/01 acute chest pain documented in this encounter Plan of Treatment Upcoming Encounters Date Type Specialty Care Team Description 07/21/2021 Office Visit Family Medicine Allison Rodrigez PA-C [address] [address] Health Maintenance Due Date Last Done Comments COVID-19 Vaccine (1) 1957 CKD PHOS USE SMARTSET 94404 1962 Zoster Vaccines (1 of 2) 1994 Influenza Vaccine (FLU shot) (#1) 2020 07/15/2019, 02/22/2016, 03/08/2015 DIABETES-EYE EXAM 07/16/2021 07/16/2020, 06/30/2019 DIABETES-FOOT EXAM 07/16/2021 07/16/2020, 07/15/2019 DIABETES-HGBA1C EVERY 6 MONTHS 08/28/2021 02/28/2021, 01/20/2021, 10/06/2020, Additional history exists CKD GFR USE SMARTSET 17447 09/04/202103/07, 03/01/2021, 02/28/2021, Additional history exists CKD HGB USE SMARTSET 92502 03/07/202203/07, 03/07/2021, 03/01/2021, Additional history exists Dexa Scan 03/11/2026 03/11/2019 DTaP,Tdap,and Td Vaccines (3 - Td or Tdap) 03/09/2027 03/09/2017, 03/24/2009 Pneumococcal Vaccine: 65+ Years Completed 05/27/2019, 03/08/2015, 06/30/2014 MENINGOCOCCAL (MENACTRA/MENVEO) Aged Out No longer eligible based on patient's age to complete this topic documented as of this encounter Implants Not on filedocumented as of this encounter Visit Diagnoses Diagnosis Hospital discharge follow-up- Primary Other follow-up examination ADRIANA (generalized anxiety disorder) Generalized anxiety disorder Heart failure, unspecified HF chronicity, unspecified heart failure type (HCC) documented in this encounter Advance Directives Documents on File Type Date Recorded Patient Blocker Hand Expl 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 [...] Advance Directives occurred with: Patient Care Teams Insole Rounder Relationship Specialty Start Date End Date Allison [facility] [place] [id number] PCP - General Physician Ferry Hand 07/16/20 documented as of this encounter"
--- OUTSIDE RECORDS SUMMARY | 2022-12-17 03:31 | External Medical Summary ---
Author Name Unknown Address Unknown Organization K1F:LABORATORY [facility] - [address] [place] [address] Laboratory Report Ordering Provider Test Date Status LAM HENRY 03/07/2021 01:13:42 Final Observation Date Value Abnormality Reference (Units ) Status SYNC LEUKOCYTES IN BLOOD BY AUTOMATED COUNT 03/07/2021 01:13:42 8.48 4.00-10.80 (K/uL) Final Segs 03/07/2021 01:13:42 65.6 40.0-75.0 (%) Final Lymphs % 03/07/2021 01:13:42 24.5 18.0-42.0 (%) Final Monos 03/07/2021 01:13:42 6.3 1.0-11.0 (%) Final Eosinophils 03/07/2021 01:13:42 2.6 0.0-6.0 (%) Final Basos 03/07/2021 01:13:42 0.8 0.0-2.0 (%) Final Immature Granulocyte, Percent 03/07/2021 01:13:42 0.2 0.0-2.0 (%) Final Absolute Segs 03/07/2021 01:13:42 5.56 1.80-7.70 (K/uL) Final Lymphs, absolute 03/07/2021 01:13:42 2.08 1.00-4.80 (K/ul) Final Monos, Abs 03/07/2021 01:13:42 0.53 0.00-1.10 (K/uL) Final Eos, Abs 03/07/2021 01:13:42 0.22 0.00-0.70 (K/uL) Final Basos, Abs 03/07/2021 01:13:42 0.07 0.00-0.20 (K/uL) Final Immature Granulocytes, Number 03/07/2021 01:13:42 0.02 0.00-0.20 (K/uL) Final Performing Location LABORATORY [facility] - [address] [place] [address]
--- OUTSIDE RECORDS SUMMARY | 2022-12-17 03:31 | External Medical Summary ---
Author Name Unknown Address Unknown Organization : Laboratory Report Ordering Provider Test Date Status HARPREET STOVALL 02/28/2021 16:55:05 Final Observation Date Value Abnormality Reference (Units ) Status Glucose Point of Care 02/28/2021 16:55:05 107 70-120 (mg/dL) Final Performing Location
--- OUTSIDE RECORDS SUMMARY | 2022-12-17 03:31 | External Medical Summary ---
Author Name Unknown Address Unknown Organization K1F:LABORATORY [facility] - [place] [address] Laboratory Report Ordering Provider Test Date Status LAM HENRY 03/07/2021 01:13:41 Final Observation Date Value Abnormality Reference (Units ) Status Troponin T 03/07/2021 01:13:41 21 Above high normal < =14 (ng/L) Final Performing Location LABORATORY [facility] - [address] [place] [address]
--- OUTSIDE RECORDS SUMMARY | 2022-12-17 03:31 | External Medical Summary ---
Author Name Unknown Address Unknown Organization K1F:LABORATORY [facility] - [address] [place] [address] Laboratory Report Ordering Provider Test Date Status MEME CARDENAS 02/28/2021 07:31:00 Final Observation Date Value Abnormality Reference (Units ) Status Troponin T 02/28/2021 07:31:00 21 Above high normal < =14 (ng/L) Final Performing Location LABORATORY [facility] - [address] [place] [address]
--- OUTSIDE RECORDS SUMMARY | 2022-12-17 03:31 | External Medical Summary ---
Author Name Unknown Address Unknown Organization : Laboratory Report Ordering Provider Test Date Status HARPREET STOVALL 02/28/2021 11:22:09 Final Observation Date Value Abnormality Reference (Units ) Status Glucose Point of Care 02/28/2021 11:22:09 132 Above high normal 70-120 (mg/dL) Final Performing Location
--- OUTSIDE RECORDS SUMMARY | 2022-12-17 03:31 | External Medical Summary ---
Author Name Unknown Address Unknown Organization K1F:LABORATORY [facility] - [address] [place] [address] Laboratory Report Ordering Provider Test Date Status LAM HENRY 03/07/2021 01:13:39 Final Observation Date Value Abnormality Reference (Units ) Status PT 03/07/2021 01:13:39 11.7 11.5-14.6 (seconds) Final INR 03/07/2021 01:13:39 0.84 0.84-1.14 Final Performing Location LABORATORY [facility] - [address] [place] [address]
--- OUTSIDE RECORDS SUMMARY | 2022-12-17 03:31 | External Medical Summary ---
Author Name Unknown Address Unknown Organization K1F:LABORATORY [facility] - [address] [place] [address] Laboratory Report Ordering Provider Test Date Status LAM HENRY 03/07/2021 03:50:00 Final Observation Date Value Abnormality Reference (Units ) Status Lipase 03/07/2021 03:50:00 91 Above high normal 13 -60 (U/L) Final Performing Location LABORATORY [facility] - [address] [place] [address]
--- OUTSIDE RECORDS SUMMARY | 2022-12-17 03:31 | External Medical Summary ---
Author Name Unknown Address Unknown Organization K01:LAB[facility]ATORY [facility] - [address] [place] [address] Laboratory Report Ordering Provider Test Date Status BOBBY CLARK 02/28/2021 05:51:43 Final Observation Date Value Abnormality Reference (Units ) Status Triglyceride 02/28/2021 05:51:43 149 <=174 ( mg/dL) Final Performing Location LABORATORY [facility] - [address] [place] [address]
--- OUTSIDE RECORDS SUMMARY | 2022-12-17 03:31 | External Medical Summary | Summary of Care ---
Author Name Unknown Organization [place] [address] Care Team Providers Care Press Loader Name Role Phone Allison Rodrigez PA-C Primary Care Provider [phone] Reason for Visit * Reason Onset Date Comments Hospital Follow-Up 03/02/2021 Encounter Details Date Type Department Care Team Description 03/02/2021 Telephone Ancillary 1st Floor, [address] [id number] Sharon Parsons RN Hospital Follow-Up Allergies Active Allergy Reactions Severity Noted Date Comments Eggs Or Egg-Derived Products Diarrhea 021 documented as of this encounter (statuses as of 03/02/2021) Medications Medication Sig Dispensed Refills Start Date [...] FOR ANXIETY 270 Tab 1 10/12/2020 Active Escitalopram Oxalate 5 MG Oral Tablet (Lexapro)Indication s:ADRIANA (generalized anxiety disorder) Take 1 Tab by mouth daily. 90 Tab 1 10/12/2020 Active Lisinopril 10 MG Oral Tablet (Prinivil)Indicatio ns:Stage 3a chronic kidney disease (HCC),HTN, goal below 140/90 Take 1 Tab by mouth daily. 90 Tab 1 01/20/2021 Active atorvaSTATin (LIPITOR) 80 MG TabletIndications:D yslipidemia, goal LDL below 100 Take 1 Tab by mouth at bedtime. 90 Tab 3 07/15/2019 Discontinue d(Refill) documented as of this encounter (statuses as of 03/02/2021) Active Problems Problem Noted Date Acute chest pain 02/28/2021 Heart failure with acute decompensation, type unknown 02/28/2021 Left bundle branch block (LBBB) 02/29/20 [...] as of this encounter (statuses as of 03/02/2021) Resolved Problems Problem Noted Date Resolved Date Other chest pain 10/06/2020 10/06/2020 Diabetes mellitus [...] as of this encounter (statuses as of 03/02/2021) Immunizations Name Administration Dates Next Due DTaP [...] Telephone Encounter - Sharon Parsons RN - 03/02/2021 1:39 PM EST Transitions of Care Note Reason for Referral:Recent Admission Phone visit for follow up: NOREEN Admitted to: [facility], Date: 02/28/21 Discharged to: home, Date: 03/01/21 Diagnosis driving hospitalization: acute chest pain Source/Contact: Patient SUBJECTIVE Consent: Verbal consent for review of hospital discharge: Yes REVIEW OF SYSTEMS Patient/Other Reports: Current patient/caregiver problems or concerns: had funny feeling in chest, but states she sat downfor about an hour and felt better. CV: Denies problems Pulmonary: Denies problems Chills/Sweats/Fever:Denies chills/sweats Denies fever Appetite:Denies problems such as nausea, vomiting, burning, decreased appetite Current diet: carbohydrate controlled diet, heart healthy diet Bowel: denies problems Bladder: denies problems Wound (If applicable): N/A Pain:Denies Sleep:Denies problems FUNCTIONAL STATUS: ADL'S: Needs Assistance With:N/A as pt is independent IADL'S: Needs Assistance With:N/A as pt is independent Cognitive and Mental Health: denies problems, alert and oriented x 3 and able to communicate, understand instructions, process information. MEDICATION RECONCILIATION Medications: Discharge med list reviewed with patient or caregiver Patient states she does not have the Atorvastatin. She states she needs a new script for the medication. Will send request to PCP. ASSESSMENT Medication Risk Assessment: No risks identified Did patient fail outpatient treatment? No Discharge instructions available for review? Yes PLAN Symptom Monitoring Interventions:Member/caregiver education - signs and symptoms to contact [facility] (DO NOT DELETE-Three san symptoms patient is to report to PCP) 1. Chest pain 2. Shortness of breath 3. Fever/chills Senior System OperatorMachine Operator Picker of Care interventions/Action Plan: 5 - 7 day follow-up with PCP in place - Date: 03/07/21 Educated on role of NOREEN completed with [...] Encounters Date Type Specialty Care Team Description 03/07/2021 Office Visit Family Medicine Allison Rodrigez PA-C [address] [address] 07/21/2021 Office Visit Family Medicine Allison Rodrigez PA-C [address] [address] Health Maintenance Due Date Last Done Comments COVID-19 Vaccine (1) 1957 CKD PHOS USE SMARTSET 64998 1962 Zoster Vaccines (1 of 2) 1994 Influenza Vaccine (FLU shot) (#1) 2020 07/15/2019, 02/22/2016, 03/08/2015 DIABETES-EYE EXAM 07/16/2021 07/16/2020, 06/30/2019 DIABETES-FOOT EXAM 07/16/2021 07/16/2020, 07/15/2019 DIABETES-HGBA1C EVERY 6 MONTHS 08/28/2021 02/28/2021, 01/20/2021, 10/06/2020, Additional history exists CKD GFR USE SMARTSET 74187 08/29/202103/01, 02/28/2021, 10/05/2020, Additional history exists CKD HGB USE SMARTSET 41049 03/01/202203/01, 02/28/2021, 02/28/2021, Additional history exists Dexa Scan 03/11/2026 03/11/2019 DTaP,Tdap,and Td Vaccines (3 - Td or Tdap) 03/09/2027 03/09/2017, 03/24/2009 Pneumococcal Vaccine: 65+ Years Completed 05/27/2019, 03/08/2015, 06/30/2014 MENINGOCOCCAL (MENACTRA/MENVEO) Aged Out No longer eligible based on patient's age to complete this topic documented as of this encounter Implants Not on filedocumented as of this encounter Advance Directives Documents on File Type Date Recorded Patient Tank Tester 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 Advance Directives occurred with: Patient Care Teams Press Loader Relationship Specialty Start Date End Date Allison Rodrigez PA-C [place] [id number] PCP - General Physician Line Department Supervisor 07/16/20 documented as of this encounter
--- OUTSIDE RECORDS SUMMARY | 2022-12-17 03:31 | External Medical Summary ---
Author Name Unknown Address Unknown Organization K1F:LABORATORY [facility] - [address] [place] [address] Laboratory Report Ordering Provider Test Date Status BOBBY CLARK 03/01/2021 03:40:00 Final Observation Date Value Abnormality Reference (Units ) Status BUN 03/01/2021 03:40:00 16 6-20 (mg/dL) Final Creatinine 03/01/2021 03:40:00 1.3 Above high normal 0.5-1.0 (mg/dL) Final Glomerular filtration rate/1.73 sq M.predicted [Volume Rate/Area] in Serum, Plasma or Blood by Creatinine-based formula (CKD-EPI) 03/01/2021 03:40:00 40 Below low normal >=60 (mL/min) Final Performing Location LABORATORY [facility] - [address] [place] [address]
--- OUTSIDE RECORDS SUMMARY | 2022-12-17 03:31 | External Medical Summary ---
Author Name Unknown Address Unknown Organization K1F:LABORATORY [facility] - [address] [place] [address] Laboratory Report Ordering Provider Test Date Status MEME CARDENAS 02/28/2021 05:51:43 Final Observation Date Value Abnormality Reference (Units ) Status Troponin T 02/28/2021 05:51:43 20 Above high normal < =14 (ng/L) Final Performing Location LABORATORY [facility] - [address] [place] [address]
--- OUTSIDE RECORDS SUMMARY | 2022-12-17 03:31 | External Medical Summary | Summary of Care ---
Author Name Unknown Organization [facility] [place] [address] Care Team Providers Care Deep Submergence Vehicle Operator Name Role Phone Allison Carlos PA-C Primary Care Provider [phone] Reason for Visit * Reason Onset Date Comments Medication Refill 03/02/2021 Encounter Details Date Type Department Care Team Description 03/02/2021 Refill Ancillary 1st Floor, [address] [id number] Sharon Parsons RN Dyslipidemia, goal LDL below 100 Allergies Active [...] at bedtime. 90 Tablet 3 03/02/2021 Active atorvaSTATin (LIPITOR) 80 MG TabletIndications:D yslipidemia, goal LDL below 100 Take 1 Tab by mouth at bedtime. 90 Tab 3 07/15/2019 1 Discontinue d(Refill) documented as of this encounter [...] encounter Miscellaneous Notes * Telephone Encounter - Allison Carlos PA-C - 03/02/2021 2:03 PM EST Signed Prescriptions: Disp Refills Atorvastatin Calcium 80 MG Oral Tablet (Li*90 Tab*3 Sig: Take 1 Tablet by mouth at bedtime. Authorizing Provider: ALLISON CARLOS * Telephone Encounter - Allison Carlos PA-C - 03/02/2021 2:03 PM EST Rx sent, thanks! * Telephone Encounter - Sharon Parsons RN - 03/02/2021 1:51 PM EST Allison, I called patient for NOREEN call today. She reports she does not have any Atorvastatin and does not have any more refills. I did pend the order. Please sign if you agree. Sharon Parsons RN documented in this encounter Plan of Treatment Upcoming Encounters Date Type Specialty Care Team Description 03/07/2021 Office Visit Family Medicine Allison Carlos PA-C [address] [address] 07/21/2021 Office Visit Family Medicine Allison Carlos PA-C [address] [address] Health Maintenance Due Date Last Done Comments COVID-19 Vaccine (1) 1957 CKD PHOS USE SMARTSET 53262 1962 Zoster Vaccines (1 of 2) 1994 Influenza Vaccine (FLU shot) (#1) 2020 07/15/2019, 02/22/2016, 03/08/2015 DIABETES-EYE EXAM 07/16/2021 07/16/2020, 06/30/2019 DIABETES-FOOT EXAM 07/16/2021 07/16/2020, 07/15/2019 DIABETES-HGBA1C EVERY 6 MONTHS 08/28/2021 02/28/2021, 01/20/2021, 10/06/2020, Additional history exists CKD GFR USE SMARTSET 64136 08/29/202103/01, 02/28/2021, 10/05/2020, Additional history exists CKD HGB USE SMARTSET 80605 03/01/202203/01, 02/28/2021, 02/28/2021, Additional history exists Dexa [...] hyperlipidemia documented in this encounter Advance Directives Documents on File Type Date Recorded 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 [address] [place] [address] PCP - General Physician Lead Welder 07/16/20 documented as of this encounter
--- OUTSIDE RECORDS SUMMARY | 2022-12-17 03:31 | External Medical Summary ---
Author Name Unknown Address Unknown Organization K1F:LABORATORY [facility] - [address] [address] Laboratory Report Ordering Provider Test Date Status LAM HENRY 03/07/2021 01:13:40 Final Observation Date Value Abnormality Reference (Units ) Status BUN 03/07/2021 01:13:40 18 6-20 (mg/dL) Final Creatinine 03/07/2021 01:13:40 1.2 Above high normal 0.5-1.0 (mg/dL) Final Glomerular filtration rate/1.73 sq M.predicted [Volume Rate/Area] in Serum, Plasma or Blood by Creatinine-based formula (CKD-EPI) 03/07/2021 01:13:40 46 Below low normal >=60 (mL/min) Final Performing Location LABORATORY [facility] - [address] [address]
--- OUTSIDE RECORDS SUMMARY | 2022-12-17 03:31 | External Medical Summary ---
Author Name Unknown Address Unknown Organization K1F:LABORATORY [facility] - [address] [address] Laboratory Report Ordering Provider Test Date Status BOBBY CLARK 02/28/2021 14:14:00 Final Observation Date Value Abnormality Reference (Units ) Status Troponin T 02/28/2021 14:14:00 21 Above high normal < =14 (ng/L) Final Performing Location LABORATORY [facility] - [address] [address]
--- OUTSIDE RECORDS SUMMARY | 2022-12-17 03:31 | External Medical Summary ---
Author Name Unknown Address Unknown Organization : Laboratory Report Ordering Provider Test Date Status HARPREET STOVALL 03/01/2021 07:20:46 Final Observation Date Value Abnormality Reference (Units ) Status Glucose Point of Care 03/01/2021 07:20:46 145 Above high normal 70-120 (mg/dL) Final Performing Location
--- OUTSIDE RECORDS SUMMARY | 2022-12-17 03:31 | External Medical Summary ---
Author Name Unknown Address Unknown Organization : Laboratory Report Ordering Provider Test Date Status HARPREET STOVALL 02/28/2021 21:21:20 Final Observation Date Value Abnormality Reference (Units ) Status Glucose Point of Care 02/28/2021 21:21:20 168 Above high normal 70-120 (mg/dL) Final Performing Location
--- OUTSIDE RECORDS SUMMARY | 2022-12-17 03:31 | External Medical Summary ---
Author Name Unknown Address Unknown Organization K1F:LABORATORY [facility] - [address] [address] Laboratory Report Ordering Provider Test Date Status LAM HENRY 03/07/2021 01:13:42 Final Observation Date Value Abnormality Reference (Units ) Status WBC, Total 03/07/2021 01:13:42 8.48 4.00-10.80 (K/uL) Final RBC 03/07/2021 01:13:42 4.42 3.85-5.15 (M/uL) Final Hemoglobin 03/07/2021 01:13:42 11.5 Below low normal 12.0-15.3 (g/dL) Final HCT 03/07/2021 01:13:42 38.2 36.0-45.2 (%) Final MCV 03/07/2021 01:13:42 86.4 81.5-97.5 (fL) Final MCH 03/07/2021 01:13:42 26.0 Below low normal 27.0-34.0 (pg) Final MCHC 03/07/2021 01:13:42 30.1 Below low normal 32.0-36.0 (g/dL) Final RDW 03/07/2021 01:13:42 14.6 11.5-15.5 (%) Final MPV 03/07/2021 01:13:42 10.5 6.6-11.1 (fL) Final Nucleated erythrocytes/100 leukocytes [Ratio] in Blood by Automated count 03/07/2021 01:13:42 0 <=0 (/100 WBCs) Final Platelets 03/07/2021 01:13:42 252 140-400 (K/uL) Final Performing Location LABORATORY [facility] - [address] [address]
--- OUTSIDE RECORDS SUMMARY | 2022-12-17 03:31 | External Medical Summary ---
Author Name Unknown Address Unknown Organization K1F:LABORATORY [facility] - [address] [address] Laboratory Report Ordering Provider Test Date Status LAM HENRY 03/07/2021 02:19:00 Final Observation Date Value Abnormality Reference (Units ) Status Troponin T 03/07/2021 02:19:00 21 Above high normal < =14 (ng/L) Final Performing Location LABORATORY [facility] - [address] [address]
--- OUTSIDE RECORDS SUMMARY | 2022-12-17 03:31 | External Medical Summary ---
Author Name Unknown Address Unknown Organization : Laboratory Report Ordering Provider Test Date Status HARPREET STOVALL 03/01/2021 11:35:40 Final Observation Date Value Abnormality Reference (Units ) Status Glucose Point of Care 03/01/2021 11:35:40 182 Above high normal 70-120 (mg/dL) Final Performing Location
--- OUTSIDE RECORDS SUMMARY | 2022-12-17 03:31 | External Medical Summary ---
Author Name Unknown Address Unknown Organization K1F:LABORATORY [facility] - [address] [address] Laboratory Report Ordering Provider Test Date Status LAM HENRY 03/07/2021 03:50:00 Final Observation Date Value Abnormality Reference (Units ) Status Troponin T 03/07/2021 03:50:00 20 Above high normal < =14 (ng/L) Final Performing Location LABORATORY [facility] - [address] [address]
--- OUTSIDE RECORDS SUMMARY | 2022-12-17 03:31 | External Medical Summary ---
Author Name Unknown Address Unknown Organization K1F:LABORATORY [facility] - [address] [address] Laboratory Report Ordering Provider Test Date Status BOBBY CLARK 03/01/2021 03:40:00 Final Observation Date Value Abnormality Reference (Units ) Status WBC, Total 03/01/2021 03:40:00 6.36 4.00-10.80 (K/uL) Final RBC 03/01/2021 03:40:00 4.26 3.85-5.15 (M/uL) Final Hemoglobin 03/01/2021 03:40:00 11.3 Below low normal 12.0-15.3 (g/dL) Final HCT 03/01/2021 03:40:00 36.1 36.0-45.2 (%) Final MCV 03/01/2021 03:40:00 84.7 81.5-97.5 (fL) Final MCH 03/01/2021 03:40:00 26.5 Below low normal 27.0-34.0 (pg) Final MCHC 03/01/2021 03:40:00 31.3 Below low normal 32.0-36.0 (g/dL) Final RDW 03/01/2021 03:40:00 14.5 11.5-15.5 (%) Final MPV 03/01/2021 03:40:00 10.4 6.6-11.1 (fL) Final Nucleated erythrocytes/100 leukocytes [Ratio] in Blood by Automated count 03/01/2021 03:40:00 0 <=0 (/100 WBCs) Final Platelets 03/01/2021 03:40:00 246 140-400 (K/uL) Final Performing Location LABORATORY [facility] - [address] [address]
--- OUTSIDE RECORDS SUMMARY | 2022-12-17 03:31 | External Medical Summary ---
Author Name Unknown Address Unknown Organization K1F:LABORATORY [facility] - [address] [address] Laboratory Report Ordering Provider Test Date Status BOBBY CLARK 02/28/2021 08:47:00 Final Observation Date Value Abnormality Reference (Units ) Status Troponin T 02/28/2021 08:47:00 21 Above high normal < =14 (ng/L) Final Performing Location LABORATORY [facility] - [address] [address]
--- OUTSIDE RECORDS SUMMARY | 2022-12-17 03:32 | External Medical Summary ---
Author Name Unknown Address Unknown Organization K1F:LABORATORY [facility] - [address] [address] Laboratory Report Ordering Provider Test Date Status MEME CARDENAS 02/28/2021 05:03:38 Final Observation Date Value Abnormality Reference (Units ) Status BNP, Pro-hormone 02/28/2021 05:03:38 1843 Above high no rmal <300 (pg/mL) Final Performing Location LABORATORY [facility] - [address] [address]
--- OUTSIDE RECORDS SUMMARY | 2022-12-17 03:32 | External Medical Summary | Summary of Care ---
Author Name Unknown Organization [facility] [address] Care Team Providers Care Dip Tanker Name Role Phone Allison Rodrigez PA-C Primary Care Provider [phone] Reason for Visit * Reason Onset Date Comments Medication Question 10/11/2020 Encounter Details Date Type Department Care Team Description 10/11/2020 Telephone [facility] [address] [facility] [address] [place] [address] Allison Rodrigez PA-C [facility] [place] [address] Medication Question Allergies No Known Active Allergiesdocumented as of this encounter (statuses as of 10/12/2020) Medications Medication Sig Dispensed Refills Start Date End Date Status aspirin enteric coated 81 MG TBEC Take 1 Tab by mouth daily. 0 Active omeprazole (PRILOSEC) 20 MG CPDR Take 1 Cap by mouth daily. 0 Active atorvaSTATin (LIPITOR) 80 MG TabletIndications:D yslipidemia, goal LDL below 100 Take 1 Tab by mouth at bedtime. 90 Tab 3 07/15/2019 Active nystatin (NYSTOP) 704490 UNIT/GM powderIndications:C utaneous candidiasis Apply topically to affected area 3 times a day. 15 g 0 07/15/2019 Active vitamin b-12 (CYANOCOBALAMIN) 1000 MCG/ML injectionIndication s:B12 deficiency Inject 1,000 mcg as directed every 30 days. 1 mL 11 07/15/2019 Active B-12 1000 MCG Sublingual Tablet Sublingual [...] evening meals. 180 Tab 1 08/23/2020 Active clonazePAM 0.5 MG Oral Tablet (KlonoPIN) Take 1 Tab by mouth 2 times a day as needed for Anxiety for up to 30 days. 30 Tab 0 10/06/2020 11/05/2020 Active busPIRone HCl 10 MG Oral Tablet (Buspar)Indications :ADRIANA (generalized anxiety disorder) TAKE ONE TABLET BY MOUTH TWICE A DAY NEEDED FOR ANXIETY 180 Tab 1 09/10/2020 10/12/2020 Discontinued (Refill) Escitalopram Oxalate 5 MG Oral Tablet (Lexapro) Take 1 Tab by mouth daily. 30 Tab 1 10/07/2020 10/12/2020 Discontinued (Refill) documented as of this encounter (statuses as of 10/12/2020) Active Problems Problem Noted Date MANDY (obstructive sleep apnea) 10/06/2020 Type 2 [...] as of this encounter (statuses as of 10/12/2020) Resolved Problems Problem Noted Date Resolved Date [...] as of this encounter (statuses as of 10/12/2020) Immunizations Name Administration Dates Next Due Pneumococcal Conjugate Vacc, 13 Valent (Prevnar) 05/27/2019,03/08/2015 Pneumococcal Polysaccharide PPV23 (Pneumovax) Seasonal Influenza, Trivalent, Adjuvanted, 65+ y rs 07/15/2019 TDAP (age 11 and older)(Adacel) 03/24/2009 documented as of this encounter Social History Tobacco Use Types Packs/Day Years Used Date Never Smoker Smokeless Tobacco: Never Used Alcohol Use Drinks/Week oz/Week Comments Never Alcohol Habits Answer Date Recorded How often [...] got money to buy more. Never true Within the past 12 months, t he food you bought just didn't last and you didn't have money to get more. Never true Sex Assigned at Date Recorded Female 07/15/2019 [...] encounter Miscellaneous Notes * Telephone Encounter - Philip Serrano PA-C - 10/12/2020 4:41 AM EDT Will discuss at appointment. * Telephone Encounter - Selene Barreto relationship manager - 10/11/2020 11:45 AM EDT Pt calling in to request a dose change on their lexapro and clonazepam. Current dose: 5mg and 0.5mg Requested dose: decrease is dosage or time per day Reason for request: making pt very sleepy, pt states she slept all yesterday and can not stay awaketoday. [address] [facility] [place] Patient unwilling to speak with pharmacist at this time. Routing to pharmacist pool to advise. Pt states she doesn't know which one is making her really tired. Selene Barreto Talent Scout [facility] 10/11/2020 11:46 AM documented in this encounter Plan of Treatment Upcoming Encounters Date Type Specialty Care Team Description 11/03/2020 Office Visit Cardiology Radha Andersen CRNP [address] [place] [address] [phone] 01/20/2021 Office Visit Family Medicine Allison Rodrigez PA-C [address] [id number] Health Maintenance Due Date Last Done Comments COVID-19 Vaccine (1) 1957 CKD PHOS USE SMARTSET 71778 1962 Zoster Vaccines (1 of 2) 1994 Yearly B-12 10/30/2020 10/31/2019, 06/03/2019 Influenza Vaccine (FLU shot) (Season Ended) 2020 07/15/2019, 02/22/2016, 03/08/2015 CKD GFR USE SMARTSET 58822 04/06/202110/05, 10/31/2019, 06/03/2019, Additional history exists DIABETES-HGBA1C EVERY 6 MONTHS 04/07/2021 10/06/2020, 07/16/2020, 10/31/2019, Additional history exists DIABETES-EYE EXAM 07/16/2021 07/16/2020, 06/30/2019 DIABETES-FOOT EXAM 07/16/2021 07/16/2020, 07/15/2019 DIABETES-URINE MICROALBUMIN EVERY 12 MONTHS 07/16/2021 07/16/2020, 06/06/2019 CKD HGB USE SMARTSET 73998 10/05/202110/05, 10/05/2020, 05/19/2019, Additional history exists Dexa Scan 03/11/2026 03/11/2019 DTaP,Tdap,and Td Vaccines (3 - Td) 03/09/2027 03/09/2017, 03/24/2009 Pneumococcal Vaccine: 65+ Years Completed 05/27/2019, 03/08/2015, 06/30/2014 MENINGOCOCCAL (MENACTRA/MENVEO) Aged Out No longer eligible based on patient's age to complete this topic documented as of this encounter Implants Not on filedocumented as of this encounter Advance Directives Documents on File Type Date Recorded 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 Discussion of Advance Directives occurred with: Patient
--- OUTSIDE RECORDS SUMMARY | 2022-12-17 03:32 | External Medical Summary | Summary of Care ---
Author [place] [address] Care Team Providers Care Sales And Merchandising Representative Name Role Phone Allison Rodrigez PA-C Primary Care Provider Reason for Visit * Reason Onset Date Comments Diarrhea 11/02/202011/02,11/03, 11/04 Encounter Details Date Type Department Care Team Description 11/02/2020 Telephone [facility] 21 [facility] [address] [place] [address] Allison Rodrigez PA-C [facility] [place] [address] Diarrhea (11/02,11/03, 11/04) Allergies No Known Active Allergiesdocumented as of this encounter (statuses as of 11/04/2020) Medications Medication Sig Dispensed Refills Start Date End Date Status aspirin enteric coated 81 MG TBEC Take 1 Tab by mouth daily. 0 Active omeprazole (PRILOSEC) 20 MG CPDR Take 1 Cap by mouth daily. 0 Active atorvaSTATin (LIPITOR) 80 MG TabletIndications:Dys lipidemia, goal LDL below 100 Take 1 Tab by mouth at bedtime. 90 Tab 3 07/15/2019 Active nystatin (NYSTOP) 578150 UNIT/GM powderIndications:Cut aneous candidiasis Apply topically to affected area 3 times a day. 15 g 0 07/15/2019 Active vitamin b-12 (CYANOCOBALAMIN) 1000 MCG/ML injectionIndications: B12 deficiency Inject 1,000 mcg as directed every [...] Active Escitalopram Oxalate 5 MG Oral Tablet (Lexapro)Indications: ADRIANA (generalized anxiety disorder) Take 1 Tab by mouth daily. 90 Tab 1 10/12/2020 Active documented as of this encounter (statuses as of 11/04/2020) Active Problems Problem Noted Date MANDY (obstructive [...] as of this encounter (statuses as of 11/04/2020) Resolved Problems Problem Noted Date Resolved Date [...] as of this encounter (statuses as of 11/04/2020) Immunizations Name Administration Dates Next Due Pneumococcal [...] Telephone Encounter - Anne-Marie Almonte LPN - 11/04/2020 5:05 PM EDT Pt scheduled 11/06 at 1250, pt aware of date and time. * Telephone Encounter - Allison Rodrigez PA-C - 11/04/2020 5:00 PM EDT Recommend patient be seen for evaluation with any available provider * Telephone Encounter - Anne-Marie Almonte LPN - 11/04/2020 4:39 PM EDT Pt reports loose stools x 1 month, last week stools were more formed but loose again this week, mild abdominal cramping only when she has to go to the bathroom, denied fevers/nausea/vomiting. * Telephone Encounter - Allison Rodrigez PA-C - 11/04/2020 1:13 PM EDT Please obtain more information about patient's symptoms. She may need to be seen for evaluation. * Telephone Encounter - Kristina Lam LPN - 11/04/2020 10:57 AM EDT This is not a [facility] patient, [facility] * Telephone Encounter - Maggie Styles financial services associate - 11/04/2020 10:48 AM EDT Pt still has diarrhea and needs something to stop - abdominal only when pt has to go to bathroom Pt is looking for some medication. Pt does not have voice mail Thank you, Maggie Styles Retail Business Manager Pharmacy Refill Call Center 11/04/2020,10:49 AM * Telephone Encounter - Mallory Leonard LPN - 11/03/2020 2:55 PM EDT No answer and unable to leave message * Telephone Encounter - Ashlie Macias LPN - 11/02/2020 11:57 AM EDT Called pt to obtain more info, voice mailbox not set up, will need to try later * Telephone Encounter - Ladarius Davidson PHARM Tech - 11/02/2020 10:42 AM EDT Pt calling with complaints of Diarrhea and is requesting a medication be prescribed. Pt did want toschedule an appointment at this time. Pt can be reached at [phone]. Please advise and send prescription if appropriate. Thank you, Ladarius Davidson Retail Business Manager [facility] 11/02/2020, 10:45 AM documented in this encounter Plan of Treatment Upcoming Encounters Date Type Specialty Care Team Description 11/06/2020 Office Visit Family Medicine Allison Rodrigez PA-C [address] [address] [phone] 01/20/2021 Office Visit Family Medicine Allison Rodrigez PA-C [address] [address] [phone] Health Maintenance Due Date Last Done Comments COVID-19 Vaccine (1) 1957 CKD PHOS USE SMARTSET 02143 1962 Zoster Vaccines (1 of 2) 1994 Yearly B-12 10/30/2020 10/31/2019, 06/03/2019 Influenza Vaccine (FLU shot) (#1) 2020 07/15/2019, 02/22/2016, 03/08/2015 CKD GFR USE SMARTSET 39606 04/06/202110/05, 10/31/2019, 06/03/2019, Additional history exists DIABETES-HGBA1C EVERY 6 MONTHS 04/07/2021 10/06/2020, 07/16/2020, 10/31/2019, Additional history exists DIABETES-EYE EXAM 07/16/2021 07/16/2020, 06/30/2019 DIABETES-FOOT EXAM 07/16/2021 07/16/2020, 07/15/2019 DIABETES-URINE MICROALBUMIN EVERY 12 MONTHS 07/16/2021 07/16/2020, 06/06/2019 CKD HGB USE SMARTSET 64431 10/05/202110/05, 10/05/2020, 05/19/2019, Additional history exists Dexa [...] Documents on File Type Date Recorded 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 Discussion of Advance Directives occurred with: Patient
--- OUTSIDE RECORDS SUMMARY | 2022-12-17 03:32 | External Medical Summary ---
Author Name Unknown Address Unknown Organization K1F:LABORATORY [facility] - [address] [address] Laboratory Report Ordering Provider Test Date Status MEME CARDENAS 02/28/2021 05:03:41 Final Observation Date Value Abnormality Reference (Units ) Status WBC, Total 02/28/2021 05:03:41 6.13 4.00-10.80 (K/uL) Final RBC 02/28/2021 05:03:41 4.36 3.85-5.15 (M/uL) Final Hemoglobin 02/28/2021 05:03:41 11.3 Below low normal 12.0-15.3 (g/dL) Final HCT 02/28/2021 05:03:41 37.3 36.0-45.2 (%) Final MCV 02/28/2021 05:03:41 85.6 81.5-97.5 (fL) Final MCH 02/28/2021 05:03:41 25.9 Below low normal 27.0-34.0 (pg) Final MCHC 02/28/2021 05:03:41 30.3 Below low normal 32.0-36.0 (g/dL) Final RDW 02/28/2021 05:03:41 14.1 11.5-15.5 (%) Final MPV 02/28/2021 05:03:41 10.4 6.6-11.1 (fL) Final Nucleated erythrocytes/100 leukocytes [Ratio] in Blood by Automated count 02/28/2021 05:03:41 0 <=0 (/100 WBCs) Final Platelets 02/28/2021 05:03:41 242 140-400 (K/uL) Final Performing Location LABORATORY [facility] - [address] [address]
--- OUTSIDE RECORDS SUMMARY | 2022-12-17 03:32 | External Medical Summary | Summary of Care ---
Author Name Unknown Organization [facility] [place] [address] Care Team Providers Care Spaghetti Machine Operator Name Role Phone Allison Rodrigez PA-C Primary Care Provider [phone] Reason for Visit * Reason Onset Date Comments Emergency Department Follow-Up Hospital Follow-Up 10/12/2020 Encounter Details Date Type Department Care Team Description 10/12/2020 Office Visit [facility] [place] [address] [place] [phone] Philip Serrano PA-C 21 [facility] [address] [place] [address] ADRIANA (generalized anxiety disorder)*; Hospital discharge follow-up; Other chest pain Allergies No Known Active Allergiesdocumented as of [...] 90 Tab 3 07/15/2019 Active nystatin (NYSTOP) 327952 UNIT/GM powderIndications:C utaneous candidiasis Apply topically to [...] mouth daily. 90 Tab 1 10/12/2020 Active busPIRone HCl 10 MG Oral Tablet [...] Date Never Smoker Smokeless Tobacco: Never Used Tobacco Cessation:Counseling Given: No Alcohol Use Drinks/Week oz/Week Comments Never Alcohol [...] Sign Reading Time Taken Comments Blood Pressure 130/64 10/12/2020 11:48 AM EDT Pulse 71 10/12/2020 11:48 AM EDT Temperature 36.7 C (98.1 F) 10/12/2020 11:48 AM E DT Respiratory Rate 19 10/12/2020 11:48 AM EDT Oxygen Saturation 98% 10/12/2020 11:48 AM EDT Inhaled Oxygen Concentration - - Weight 104.8 kg (231 lb) 10/12/2020 11:48 AM EDT Height - - Body Mass Index 37.28 10/06/2020 1:58 AM EDT documented in this encounter Functional [...] No 10/06/2020 documented as of this encounter Progress Notes * Philip Serrano PA-C - 10/12/2020 12:25 PM EDT Subjective: Sahra Rodríguez is a 75 year old female. Chief Complaint Patient presents with Emergency Department Follow-Up Hospital Follow-Up HPI: Here for a hospital follow-up. History of chest pain caused for increased anxiety. The heart testing came back OK. Started on lexapro. Given a few clonazepam to take for increasing symptoms. Currently on buspar 2 times per day now. Eating and sleeping better. Better outlook on life. No suicidal or homicidal ideations. History of diabetes-on a medication. History of ckd-stable. History of increased lipids-on a medication. No SOB/Dyspnea. No orthopnea or PND. No numbness to the face, chest, neck or arms. No ankle swelling. No weight loss. Able to drink fluids. Producing urine. 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 Secondary hyperparathyroidism, non-renal ([facility]) E21.1 B12 deficiency E53.8 Stage 3a chronic kidney disease N18.31 Severe obesity with body mass index (BMI) of 35.0 to 39.9 with serious comorbidity ([facility]) E66.01 Type 2 diabetes mellitus with stage 3a chronic kidney disease (HCC) E11.22, N18.31 MANDY (obstructive sleep apnea) G47.33 Current Outpatient Medications Medication Sig Dispense Refill busPIRone HCl 10 MG Oral Tablet (Buspar) TAKE ONE TABLET BY MOUTH THREE TIMES A DAY NEEDED FOR ANXIETY 270 Tab 1 Escitalopram Oxalate 5 MG Oral Tablet (Lexapro) Take 1 Tab by mouth daily. 90 Tab 1 clonazePAM 0.5 MG Oral Tablet (KlonoPIN) Take 1 Tab by mouth 2 times a day as needed for Anxiety for up to 30 days. 30 Tab 0 metFORMIN HCl 1000 MG Oral Tablet (Glucophage) Take 1 Tab by mouth 2 times a day with morning and evening meals. 180 Tab 1 Metoprolol Tartrate 25 MG Oral Tablet (Lopressor) Take 0.5 Tabs by mouth 2 times a day. 30 Tab 11 B-12 1000 MCG Sublingual Tablet Sublingual PLACE 1,000 MCG UNDER THE TONGUE DAILY 30 Tab 11 atorvaSTATin (LIPITOR) 80 MG Tablet Take 1 Tab by mouth at bedtime. 90 Tab 3 aspirin enteric coated 81 MG TBEC Take 1 Tab by mouth daily. omeprazole (PRILOSEC) 20 MG CPDR Take 1 Cap by mouth daily. Zoster Vac Recomb Adjuvanted 50 MCG/0.5ML Intramuscular Suspension Reconstituted (Shingrix) Inject 0.5 mL into a large muscle now and repeat dose in 60 to 180 days 1 Each 1 nystatin (NYSTOP) 960047 UNIT/GM powder Apply topically to affected area 3 times a day. 15 g 0 vitamin b-12 (CYANOCOBALAMIN) 1000 MCG/ML injection Inject 1,000 mcg as directed every 30 days. 1 mL 11 Past Medical History: Diagnosis Date Anxiety 2014 Diabetes (HCC) 2004 approx GERD (gastroesophageal reflux disease) Past Surgical History: Procedure Laterality Date REMOVE CATARACT, INSERT LENS PROSTH Bilateral REMOVE GALLBLADDER 1986 REPLACEMENT OF AORTIC VALVE (NICOLE) 2010 Review of patient's allergies indicates: No Known Allergies Family History Problem Relation Age of Onset Heart attack Mother Stroke Sister Cancer Brother unknown primary Family Status Relation Status Mo Fa at age 20 accidental , fell off a porch roof Sis Alive Bro at age 79 complications of sepsis MGMA MGFA PGMA PGFA Bro Social History Tobacco Use Smoking status: Never Smoker Smokeless tobacco: Never Used Substance Use Topics Alcohol use: Never Frequency: Never Vaping/E-Cigarette Use Vaping/E-Cigarette Use Never User Vaping/E-Cigarette Substances Vaping/E-Cigarette Devices Review of Systems: Constitutional ROS: No change in weight and No fevers, sweats, or chills Eye ROS: No recent significant change in vision, No eye pain, redness, discharge and No diplopia Ear ROS: No ear pain, No drainage, No tinnitus or vertigo and No recent change in hearing Nose ROS: No history of frequent colds or sinusitis and No significant epistaxis Mouth/Throat ROS: No bleeding gums, No thrush or No sore throat Neck ROS: No lumps or masses, No swollen glands, No recent swelling in thyroid area and No significant pain in neck Pulmonary ROS: No cough, sputum, or hemoptysis, No wheezing, No rales, No shortness of breath and No recent change in breathing Cardiovascular ROS: No shortness of breath, No dyspnea on exertion, No orthopnea, No paroxysmal nocturnal dyspnea, No edema, No palpitations and No syncope Gastrointestinal ROS: No abdominal pain, No change in bowel habits, No significant change in appetite, No nausea, vomiting, diarrhea, or constipation, No hematemesis, No blood in stools or black tarry stools, No abdominal bloating or early satiety and No dysphagia Genito-Urinary Female ROS: No STDs, No dysuria, No frequency, No incontinence and No urgency Hematologic/Lymphatic ROS: No coagulation disorder, No anemia, No abnormal bleeding, No chills, No bruising, No HIV risk factors, No night sweats, No swollen nodes and No weight loss Skin/Integumentary ROS: No edema, No rash and No itching Neurologic ROS: Normal balance, No headaches and No seizures Endocrine ROS: No heat intolerance, No cold intolerance, No thyroid trouble and No excessive thirstor urination Psychiatric ROS: No psychosis OBJECTIVE: BP 130/64 | Pulse 71 | Temp 36.7 C (98.1 F) (Tympanic) | Resp 19 | Wt 104.8 kg (231 lb) | SpO2 98% | BMI 37.28 kg/m | BSA 2.21 m PHYSICAL EXAM: General: alert, no distress and obese Affect: Dressed appropriately. Makes eye contact when speaking. Head: Normocephalic, No masses, lesions, tenderness or abnormalities Eye Exam: PERRLA, EOMI, Conjunctiva are pink and non-injected, sclera clear Ears: External ears normal, Canals clear, TM's Normal Nose: no mucosal erythema, no mucosal edema, no purulent discharge Oropharynx: no exudate, no erythema, lips, buccal mucosa, and tongue normal and mucous membranes are moist Neck: supple, no adenopathy, no bruits, thyroid normal size, non-tender, without nodularity Heart: regular rate & rhythm, no murmurs and no gallops Lungs: chest symmetric with normal AP diameter, no chest deformities noted, no chest wall tenderness, lungs clear to auscultation Pulses: carotid=2/4 w/o bruits Abdomen: abdomen soft, non-tender, normal bowel sounds and no masses or organomegaly Back: back symmetric, no curvature, no costovertebral angle tenderness, range of motion is normal Extremities: less than 2 second capillary refill, no joint deformities, effusion, or inflammation Neuro Exam: alert & oriented x 3 with fluent speech, no focal motor/sensory deficits, gait normal, reflexes normal and symmetric Skin: skin color, texture, turgor are normal, no rashes or significant lesions ASSESSMENT: F41.1 ADRIANA (generalized anxiety disorder) (primary encounter diagnosis) Note: Medications changed Plan: 1. The buspar will be increased to 3 times daily 2. Take the lexapro daily 3. Offered counseling-does not want to go 4. F/U as scheduled Z09 Hospital discharge follow-up R07.89 Other chest pain Note: None today Plan: 1. F/U if symptoms return PLAN: Plan busPIRone HCl 10 MG Oral Tablet (Buspar) Escitalopram Oxalate 5 MG Oral Tablet (Lexapro) DISCH MED RECON CUR MED LIST [1111F] Follow up: Philip Serrano PA-C 10/12/2020 12:32 PM * Krupa Simon LPN - 10/12/2020 11:46 AM EDT Chief Complaint Patient presents with Emergency Department Follow-Up Pt states has been under a lot of stress lately, family issues, had to put her dog down and a niecejust from cancer. documented in this encounter Nursing Notes * Krupa Simon LPN - 10/12/2020 11:47 AM EDT Chief Complaint Patient presents with Emergency Department Follow-Up documented in this encounter Plan of Treatment Upcoming Encounters Date Type Specialty Care Team Description 11/03/2020 Office Visit Cardiology Radha Andersen CRNP [address] [place] [id number] 01/20/2021 Office Visit Family Medicine Allison Rodrigez PA-C [address] [facility] [place] [address] [phone] Health Maintenance Due Date Last Done Comments COVID-19 Vaccine (1) 1957 CKD PHOS USE SMARTSET 76430 1962 Zoster Vaccines (1 of 2) 1994 Yearly B-12 10/30/2020 10/31/2019, 06/03/2019 Influenza Vaccine (FLU shot) (Season Ended) 2020 07/15/2019, 02/22/2016, 03/08/2015 CKD GFR USE SMARTSET 91203 04/06/202110/05, 10/31/2019, 06/03/2019, Additional history exists DIABETES-HGBA1C EVERY 6 MONTHS 04/07/2021 10/06/2020, 07/16/2020, 10/31/2019, Additional history exists DIABETES-EYE EXAM 07/16/2021 07/16/2020, 06/30/2019 DIABETES-FOOT EXAM 07/16/2021 07/16/2020, 07/15/2019 DIABETES-URINE MICROALBUMIN EVERY 12 MONTHS 07/16/2021 07/16/2020, 06/06/2019 CKD HGB USE SMARTSET 43078 10/05/202110/05, 10/05/2020, 05/19/2019, Additional history exists Dexa [...] (generalized anxiety disorder)- Primary Generalized anxiety disorder Hospital discharge follow-up Other follow-up examination Other chest pain documented in this encounter Advance Directives Documents on File Type Date Recorded Patient Supervisor Research Kennel 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 upon. Discussion of Advance Directives occurred with: Patient"
--- OUTSIDE RECORDS SUMMARY | 2022-12-17 03:32 | External Medical Summary | Summary of Care ---
Author Name [place] [address] Care Team Providers Care Claims Representative Name Role Phone Allison Rodrigez PA-C Primary Care Provider Reason for Visit * Reason Onset Date Comments Blood Pressure Check 02/03/202102/03 Encounter Details Date Type Department Care Team Description 02/03/2021 Telephone [facility] [place] [phone] Allison Rodrigez PA-C 21 [facility] [place] [address] Blood Pressure Check (02/03) Allergies Active Allergy Reactions Severity Noted Date Comments Eggs Or Egg-Derived Products Diarrhea 021 documented as of this encounter (statuses as of 02/04/2021) Medications Medication Sig Dispensed Refills Start Date End Date Status aspirin enteric coated 81 MG TBEC Take 1 Tab by mouth daily. 0 Active omeprazole (PRILOSEC) 20 MG CPDR Take 1 Cap by mouth daily. 0 Active atorvaSTATin (LIPITOR) 80 MG TabletIndications:Dysl ipidemia, goal LDL below 100 Take 1 Tab by mouth at bedtime. 90 Tab 3 07/15/2019 Active nystatin (NYSTOP) 351535 UNIT/GM powderIndications:Cuta neous candidiasis Apply topically to affected area 3 times a day. 15 g 0 07/15/2019 Active B-12 1000 MCG Sublingual Tablet [...] Active Escitalopram Oxalate 5 MG Oral Tablet (Lexapro)Indications:G AD (generalized anxiety disorder) Take 1 Tab by mouth daily. 90 Tab 1 10/12/2020 Active Lisinopril 10 MG Oral Tablet (Prinivil)Indications: Stage 3a chronic kidney disease (HCC),HTN, goal below 140/90 Take 1 Tab by mouth daily. 90 Tab 1 01/20/2021 Active documented as of this encounter (statuses as of 02/04/2021) Active Problems Problem Noted Date MANDY (obstructive [...] as of this encounter (statuses as of 02/04/2021) Resolved Problems Problem Noted Date Resolved Date [...] as of this encounter (statuses as of 02/04/2021) Immunizations Name Administration Dates Next Due DTaP [...] (15 years old or older) No 10/07/19 Cognitive Status Response Date of Assessm ent Because of a physical, menta l, or emotional condition, do you have serious difficulty concentrating, remembering, or making decisions? (5 years old or older No 10/06/2020 documented as of this encounter Miscellaneous Notes * Telephone Encounter - Kanika Rios CCMA - 02/04/2021 10:11 AM EDT Patient has been informed of below message and verbalized understanding. * Telephone Encounter - Ashlie Macias LPN - 02/03/2021 9:53 AM EDT Voice mailbox not set up, unable to let msg * Telephone Encounter - Allison Rodrigez PA-C - 02/03/2021 9:51 AM EDT BP at goal. No medication changes * Telephone Encounter - Dylan Chong LPN - 02/03/2021 9:10 AM EDT Sahra Rodríguez presented for blood pressure check per provider orders. The blood pressure was obtained using the left arm in the sitting position using a adult large cuff. The results were charted in Vital Signs. BP 138/74 | Pulse 64 | Resp 12 | SpO2 97% Patient denies headache, pressure in head, dizziness, lightheadedness, chest discomfort, focal neurological symptoms, change in vision, nose bleeds. Did patient take medications today? No, Takes in PM but states she is going to start taking it in the AM Patient was instructed to follow-up as per their next scheduled appt documented in this encounter Plan of Treatment Upcoming Encounters Date Type Specialty Care Team Description 07/21/2021 Office Visit Family Medicine Allison Rod[facility]igez PA-C [facility] [place] [address] Health Maintenance Due Date Last Done Comments COVID-19 Vaccine (1) 1957 CKD PHOS USE SMARTSET 70322 1962 Zoster Vaccines (1 of 2) 1994 Influenza Vaccine (FLU shot) (#1) 2020 07/15/2019, 02/22/2016, 03/08/2015 CKD GFR USE SMARTSET 56300 04/06/202110/05, 10/31/2019, 06/03/2019, Additional history exists DIABETES-EYE EXAM 07/16/2021 07/16/2020, 06/30/2019 DIABETES-FOOT EXAM 07/16/2021 07/16/2020, 07/15/2019 DIABETES-HGBA1C EVERY 6 MONTHS 07/21/2021 01/20/2021, 10/06/2020, 07/16/2020, Additional history exists CKD HGB USE SMARTSET 77377 10/05/202110/05, 10/05/2020, 05/19/2019, Additional history exists Dexa [...] on File Type Date Recorded Patient Director Maternal Child 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
--- OUTSIDE RECORDS SUMMARY | 2022-12-17 03:32 | External Medical Summary ---
Author Name Unknown Address Unknown Organization K1F:LAB[facility]ORY [facility] - [address] [address] Laboratory Report Ordering Provider Test Date Status MEME CARDENAS 02/28/2021 05:03:36 Final Observation Date Value Abnormality Reference (Units ) Status Troponin T 02/28/2021 05:03:36 20 Above high normal < =14 (ng/L) Final Performing Location [facility] - [address] [address]
--- OUTSIDE RECORDS SUMMARY | 2022-12-17 03:32 | External Medical Summary ---
Author Name Unknown Address Unknown Organization K1F:[facility]ATORY [facility] - [address] [address] Laboratory Report Ordering Provider Test Date Status MEME CARDENAS 02/28/2021 05:03:35 Final Observation Date Value Abnormality Reference (Units ) Status Fibrin D-dimer FEU [Mass/volume] in Platelet poor plasma by Immunoassay 02/28/2021 05:03:35 0.64 Above high normal <0.50 (ug/mL FEU) Final Performing Location [facility]ATORY [facility] - [address] [address]
--- OUTSIDE RECORDS SUMMARY | 2022-12-17 03:32 | External Medical Summary | Summary of Care ---
Author Name [place] [address] Care Team Providers Care Aluminum Siding Applicator Name Role Phone Allison Rodrigez PA-C Primary Care Provider Reason for Visit * Reason Onset Date Comments Diarrhea 11/02/202011/02,11/03, 11/04 Encounter Details Date Type Department Care Team Description 11/02/2020 Telephone [facility] [place] [address] [facility] [place] [address] Diarrhea (11/02,11/03, 11/04) Allergies No Known Active Allergiesdocumented as of this encounter (statuses as of 11/05/2020) Medications Medication Sig Dispensed Refills Start Date End Date Status aspirin enteric coated 81 MG TBEC Take 1 Tab by mouth daily. 0 Active omeprazole (PRILOSEC) 20 MG CPDR Take 1 Cap by mouth daily. 0 Active atorvaSTATin (LIPITOR) 80 MG TabletIndications:Dys lipidemia, goal LDL below 100 Take 1 Tab by mouth at bedtime. 90 Tab 3 07/15/2019 Active nystatin (NYSTOP) 117111 UNIT/GM powderIndications:Cut aneous candidiasis Apply topically to [...] as of this encounter (statuses as of 11/05/2020) Active Problems Problem Noted Date MANDY (obstructive [...] as of this encounter (statuses as of 11/05/2020) Resolved Problems Problem Noted Date Resolved Date [...] as of this encounter (statuses as of 11/05/2020) Immunizations Name Administration Dates Next Due Pneumococcal [...] encounter Miscellaneous Notes * Telephone Encounter - Tolu Encarnacion OSA - 11/05/2020 12:33 PM EDT Patient calling in to cancel tomorrow's appointment. She stated that she stopped eating eggs and her diarrhea and cramping have stopped. * Telephone Encounter - Anne-Marie Almonte LPN [...] 10:57 AM EDT This is not a [facility] patient, routing to [facility]. * Telephone Encounter - Maggie Styles PHARM Tech - 11/04/2020 10:48 AM EDT Pt still has diarrhea and needs something to stop - abdominal only when pt has to go to bathroom Pt is looking for some medication. Pt does not have voice mail Thank you, Maggie Styles Rail Flaw Detector Operator Pharmacy Refill Call Center 11/04/2020,10:49 AM * [...] this time. Pt can be reached at [phone]. Please advise and send prescription if appropriate. Thank you, Ladarius Davidson Rail Flaw Detector Operator [email or web address] 11/02/2020, 10:45 AM documented in this encounter Plan of Treatment Upcoming Encounters Date Type Specialty Care Team Description 01/20/2021 Office Visit Family Medicine Allison Rodrigez PA-C [address] [place] [address] Health Maintenance Due Date Last Done Comments COVID-19 Vaccine (1) 1957 CKD PHOS USE SMARTSET 21417 1962 Zoster Vaccines (1 of 2) 1994 Yearly B-12 10/30/2020 10/31/2019, 06/03/2019 Influenza Vaccine (FLU shot) (#1) 2020 07/15/2019, 02/22/2016, 03/08/2015 CKD GFR USE SMARTSET 59732 04/06/202110/05, 10/31/2019, 06/03/2019, Additional history exists DIABETES-HGBA1C EVERY 6 MONTHS 04/07/2021 10/06/2020, 07/16/2020, 10/31/2019, Additional history exists DIABETES-EYE EXAM 07/16/2021 07/16/2020, 06/30/2019 DIABETES-FOOT EXAM 07/16/2021 07/16/2020, 07/15/2019 DIABETES-URINE MICROALBUMIN EVERY 12 MONTHS 07/16/2021 07/16/2020, 06/06/2019 CKD HGB USE SMARTSET 73624 10/05/202110/05, 10/05/2020, 05/19/2019, Additional history exists Dexa [...] Documents on File Type Date Recorded Patient Jockey Valet 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
--- OUTSIDE RECORDS SUMMARY | 2022-12-17 03:32 | External Medical Summary ---
Author Name Unknown Address Unknown Organization K01:[facility] [place] [address] [place] [address] Laboratory Report Ordering Provider Test Date Status BOBBY CLARK 02/28/2021 05:03:41 Final Observation Date Value Abnormality Reference (Units ) Status HbA1C 02/28/2021 05:03:41 7.4 Above high normal 4. 0-5.6 (%) Final Performing Location [facility]ATORY [facility] - [address] [facility] [address]
--- OUTSIDE RECORDS SUMMARY | 2022-12-17 03:32 | External Medical Summary | Summary of Care ---
Author Name Unknown Organization [facility] [place] [address] Care Team Providers Care Waiter/Waitress Tourist Class Name Role Phone Allison Rodrigez PA-C Primary Care Provider [phone] Reason for Visit * Reason Comments Follow Up 6 mo ret Encounter Details Date Type Department Care Team Description 01/20/2021 Office Visit [facility] 21 [facility] [place] [address] Allison Rodrigez PA-C 21 [facility] [place] [address] Routine medical exam*; Stage 3a chronic kidney disease (HCC); HTN, goal below 140/90; Type 2 diabetes mellitus with hemoglobin A1c goal of less than 7.0% ([facility]); Muscle cramping; Dyslipidemia, goal LDL below 100; Type 2 diabetes mellitus with stage 3a chronic kidney disease, without long-term current use of insulin ([facility]); MANDY (obstructive sleep apnea); S/P aortic valve replacement; ADRIANA (generalized anxiety disorder) Allergies Active Allergy Reactions Severity Noted Date Comments Eggs Or Egg-Derived Products Diarrhea 021 documented as of this encounter (statuses as of 01/20/2021) Medications Medication Sig Dispensed Refills Start Date End Date Status aspirin enteric coated 81 MG TBEC Take 1 Tab by mouth daily. 0 Active omeprazole (PRILOSEC) 20 MG CPDR Take 1 Cap by mouth daily. 0 Active atorvaSTATin (LIPITOR) 80 MG TabletIndications:D yslipidemia, goal LDL below 100 Take 1 Tab by mouth at bedtime. 90 Tab 3 07/15/2019 Active nystatin (NYSTOP) 238727 UNIT/GM powderIndications:C utaneous candidiasis Apply topically to [...] mouth daily. 90 Tab 1 01/20/2021 Active vitamin b-12 (CYANOCOBALAMIN) 1000 MCG/ML injectionIndication s:B12 deficiency Inject 1,000 mcg as directed every 30 days. 1 mL 11 07/15/2019 01/20/2021 Discontinued (Patient preference/d iscontinuati on) documented as of this encounter (statuses as of 01/20/2021) Active Problems Problem Noted Date MANDY (obstructive [...] as of this encounter (statuses as of 01/20/2021) Resolved Problems Problem Noted Date Resolved Date [...] as of this encounter (statuses as of 01/20/2021) Immunizations Name Administration Dates Next Due DTaP [...] Sign Reading Time Taken Comments Blood Pressure 150/88 01/20/2021 9:19 AM EDT Pulse 69 01/20/2021 9:19 AM EDT Temperature 35.7 C (96.2 F) 01/20/2021 9:19 AM ED T Respiratory Rate 16 01/20/2021 9:19 AM EDT Oxygen Saturation 98% 01/20/2021 9:19 AM EDT Inhaled Oxygen Concentration - - Weight 105.3 kg (232 lb 3.2 oz) 01/20/2021 9:19 AM EDT Height - - Body Mass Index 37.48 10/06/2020 1:58 AM EDT documented in this [...] Progress Notes * Allison Rodrigez PA-C - 01/20/2021 9:44 AM EDT Subjective Sahra Rodríguez is a 75 year old female that presents for Follow Up (6 mo ret) HPI Patient presents today for routine follow up. Weight is stable No concerns today. BP elevated today. Denies current symptoms including chest pain, SCOTT, SOB, visual changes. BP Readings from Last 5 Encounters: 01/20/21 150/88 10/12/20 130/64 10/06/20 171/86 07/16/20 146/82 10/31/19 124/68 Type 2 DM, goal <7.0: Taking metformin. Last A1C in 09/2020 was 7.6. POC A1C today 7.0. Checks BG 2-3 times per day. FBG typically around 99-105. HS typically around 120. Denies blurred vision, polyuria, polydipsia, weight loss, paresthesias. Denies episodes of hypoglycemia. MANDY: does not use CPAP. Sleeps well overall. HLD S/p aortic valve replacement: Taking metoprolol, atorvastatin, baby aspirin. Agreeable to add lisinopril. Denies chest pain/pressure, SOB, palpitations, dizziness, syncope, blurred vision, or peripheral edema. ADRIANA: Taking buspirone and Lexapro. Denies depression. Anxiety overall stable but admits she gets worked up when she watches the news every day. Does not wish to stop however, because she likes to be in the know. Tobacco, alcohol, drug use: None Diet/exercise: Appetite is good. Has been trying to cut back on some sweets. +routine eye care Urination and BM's are regular. Eating and drinking regularly. Lives at home with her son, gets along well with him. 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 Reports muscle cramping in her legs at times. Does not drink much water. Eats a lot of bananas. All other systems reviewed and are negative. Health Maintenance: Declines vaccines Objective BP 150/88 | Pulse 69 | Temp 35.7 C (96.2 F) (Tympanic) | Resp 16 | Wt 105.3 kg (232 lb 3.2 oz) | SpO2 98% | BMI 37.48 kg/m | BSA 2.21 m Body mass index is 37.48 kg/m. BP Readings from Last 3 Encounters: 01/20/21 150/88 10/12/20 130/64 10/06/20 171/86 Wt Readings from Last 3 Encounters: 01/20/21 105.3 kg (232 lb 3.2 oz) 10/12/20 104.8 kg (231 lb) 10/06/20 108.1 kg (238 lb 4.8 oz) Physical Exam Constitutional: General: She is not in acute distress. Appearance: She is obese. She is not ill-appearing or diaphoretic. HENT: Head: Normocephalic and atraumatic. Right Ear: Tympanic membrane, ear canal and external ear normal. Left Ear: Tympanic membrane, ear canal and external ear normal. Nose: Nose normal. Mouth/Throat: Mouth: Mucous membranes are moist. Pharynx: Oropharynx is clear. No oropharyngeal exudate or posterior oropharyngeal erythema. Eyes: Conjunctiva/sclera: Conjunctivae normal. Pupils: Pupils are equal, round, and reactive to light. Neck: Musculoskeletal: Neck supple. No muscular tenderness. Cardiovascular: Rate and Rhythm: Normal rate and regular rhythm. Pulses: Normal pulses. Heart sounds: Normal heart sounds. No murmur. No gallop. Pulmonary: Effort: Pulmonary effort is normal. No respiratory distress. Breath sounds: Normal breath sounds. No wheezing, rhonchi or rales. Abdominal: General: Bowel sounds are normal. Palpations: Abdomen is soft. Tenderness: There is no abdominal tenderness. There is no guarding. Musculoskeletal: Right lower leg: No edema. Left [...] normal. The following labs were reviewed today: BMP, CBC, Hemoglobin A1C, Hepatic Panel and Lipid Panel Assessment and plan Routine medical exam Discussed routine, age appropriate health and safety measures, including routine eye and dental care, low fat diet, regular exercise, abstinence from nicotine and moderation of alcohol intake. Stage 3a chronic kidney disease (HCC) - Lisinopril; Take 1 Tab by mouth daily. HTN, goal below 140/90 Start lisinopril. Continue other medications. Return in 2 weeks for nurse visit BP check. - Lisinopril; Take 1 Tab by mouth daily. Type 2 diabetes mellitus with hemoglobin A1c goal of less than 7.0% ([facility]) Stable on current medication. Continue to monitor. - Hemoglobin A1c, Point of Care Muscle cramping Increase water intake, limit banana intake. Will update labs and manage appropriately based on results. - Comprehensive Metabolic Panel; Future Dyslipidemia, goal LDL below 100 Will update labs and manage appropriately based on results. - Lipid Panel with Direct LDL if TG is High; Future Type 2 diabetes mellitus with stage 3a chronic kidney disease, without long-term current use of insulin ([facility]) MANDY (obstructive sleep apnea) Stable continue to monitor S/P aortic valve replacement ADRIANA (generalized anxiety disorder) Stable on current medication. Continue to monitor. Follow up Follow Up: Return in about 6 months (around 07/21/2021), or if symptoms worsen or fail to improve, for BP Check in 2 Weeks, Fasting Labs Soon. | For: BP Check in 2 Weeks, Fasting Labs Soon Total time today including reviewing chart before the visit, pertinent labs, imaging reports, face to face time, and documentation time was 38 minutes. The above was discussed and understanding was expressed. Allison Rodrigez PA-C * Ashlie Macias LPN - 01/20/2021 9:17 AM EDT Chief Complaint Patient presents with Follow Up 6 mo ret ] documented in this encounter Plan of Treatment Upcoming Encounters Date Type Specialty Care Team Description 02/03/2021 Laboratory Laboratory [facility] [place] [address] [id number] 02/03/2021 Nurse Only Ancillary Nurse [facility] [address] [place] [place] [address] 07/21/2021 Office Visit Family Medicine Allison Rodrigez PA-C [address] [place] [place] [address] Scheduled Orders Name Type Priority Associated Diagnoses Orde r Schedule LIPID PANEL WITH DIRECT LDL IF TG IS HIGH Lab Routine Dyslipidemia, goal LDL below 100 Expected: 01/20/2021, Expires: 01/20/2022 COMPREHENSIVE METABOLIC PANEL Lab Routine Muscle cramping Expected: 01/20/2021 (Approximate), Expires: 01/20/2022 Health Maintenance Due Date Last Done Comments COVID-19 Vaccine (1) 1957 CKD PHOS USE SMARTSET 52443 1962 Zoster Vaccines (1 of 2) 1994 Influenza Vaccine (FLU shot) (#1) 2020 07/15/2019, 02/22/2016, 03/08/2015 CKD GFR USE SMARTSET 56218 04/06/202110/05, 10/31/2019, 06/03/2019, Additional history exists DIABETES-EYE EXAM 07/16/2021 07/16/2020, 06/30/2019 DIABETES-FOOT EXAM 07/16/2021 07/16/2020, 07/15/2019 DIABETES-URINE MICROALBUMIN EVERY 12 MONTHS 07/16/2021 07/16/2020, 06/06/2019 DIABETES-HGBA1C EVERY 6 MONTHS 07/21/2021 01/20/2021, 10/06/2020, 07/16/2020, Additional history exists CKD HGB USE SMARTSET 23454 10/05/202110/05, 10/05/2020, 05/19/2019, Additional history exists Dexa Scan 03/11/2026 03/11/2019 DTaP,Tdap,and Td Vaccines (3 - Td) 03/09/2027 03/09/2017, 03/24/2009 Pneumococcal Vaccine: 65+ Years Completed 05/27/2019, 03/08/2015, 06/30/2014 MENINGOCOCCAL (MENACTRA/MENVEO) Aged Out No longer eligible based on patient's age to complete this topic documented as of this encounter Implants Not on filedocumented as of this encounter Procedures Procedure Name Priority Date/Time Associated Diagnosis Comments HEMOGLOBIN A1C, POINT OF CARE Routine 01/20/2021 9:57 AM EDT Type 2 diabetes mellitus with hemoglobin A1c goal of less than 7.0% (HCC) documented in this encounter Results * HEMOGLOBIN A1C, POINT OF CARE (01/20/2021 9:57 AM EDT) Hemoglobin A1c 7.0(H) 4.0 - 5.6 % [facility]- Specimen Blood [facility]- [address] [place] [address] documented in this encounter Visit Diagnoses Diagnosis Routine medical exam- Primary Routine general medical examination at a health care facility Stage 3a chronic kidney disease (HCC) HTN, goal below 140/90 Unspecified essential hypertension Type 2 diabetes mellitus with hemoglobin A1c goal of less than 7.0% (HCC) Muscle cramping Dyslipidemia, goal LDL below 100 Other and unspecified hyperlipidemia Type 2 diabetes mellitus with stage 3a chronic kidney disease, without long-term current use of insulin (HCC) MANDY (obstructive sleep apnea) Obstructive sleep apnea (adult) (pediatric) S/P aortic valve replacement Heart valve replaced by other means ADRIANA (generalized anxiety disorder) Generalized anxiety disorder documented in this encounter Advance Directives Documents on File Type Date Recorded Patient Hoop Riveter 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
--- OUTSIDE RECORDS SUMMARY | 2022-12-17 03:32 | External Medical Summary ---
Author Name Unknown Address Unknown Organization K1F:LAB[facility]ATORY [facility] - [address] [place] [address] Laboratory Report Ordering Provider Test Date Status MEME CARDENAS 02/28/2021 05:03:35 Final Observation Date Value Abnormality Reference (Units ) Status PT 02/28/2021 05:03:35 12.0 11.5-14.6 (seconds) Final INR 02/28/2021 05:03:35 0.87 0.84-1.14 Final Performing Location [facility] - [address] [address]
--- OUTSIDE RECORDS SUMMARY | 2022-12-17 03:32 | External Medical Summary ---
Author Name Unknown Address Unknown Organization K1F:[facility]ATORY [facility] - [address] [address] Laboratory Report Ordering Provider Test Date Status RONALDMEME 02/28/2021 05:03:38 Final Observation Date Value Abnormality Reference (Units ) Status BUN 02/28/2021 05:03:38 11 6-20 (mg/dL) Final Creatinine 02/28/2021 05:03:38 1.1 Above high normal 0.5-1.0 (mg/dL) Final Glomerular filtration rate/1.73 sq M.predicted [Volume Rate/Area] in Serum, Plasma or Blood by Creatinine-based formula (CKD-EPI) 02/28/2021 05:03:38 52 Below low normal >=60 (mL/min) Final Performing Location [facility] - [address] [address]
--- OUTSIDE RECORDS SUMMARY | 2022-12-17 03:32 | External Medical Summary ---
Author Name Unknown Address Unknown Organization K1F:[facility] [address] [facility] [place] [address] Laboratory Report Ordering Provider Test Date Status MEME CARDENAS 02/28/2021 05:03:41 Final Observation Date Value Abnormality Reference (Units ) Status SYNC LEUKOCYTES IN BLOOD BY AUTOMATED COUNT 02/28/2021 05:03:41 6.13 4.00-10.80 (K/uL) Final Segs 02/28/2021 05:03:41 62.1 40.0-75.0 (%) Final Lymphs % 02/28/2021 05:03:41 26.1 18.0-42.0 (%) Final Monos 02/28/2021 05:03:41 7.0 1.0-11.0 (%) Final Eosinophils 02/28/2021 05:03:41 3.3 0.0-6.0 (%) Final Basos 02/28/2021 05:03:41 0.8 0.0-2.0 (%) Final Immature Granulocyte, Percent 02/28/2021 05:03:41 0.7 0.0-2.0 (%) Final Absolute Segs 02/28/2021 05:03:41 3.81 1.80-7.70 (K/uL) Final Lymphs, absolute 02/28/2021 05:03:41 1.60 1.00-4.80 (K/ul) Final Monos, Abs 02/28/2021 05:03:41 0.43 0.00-1.10 (K/uL) Final Eos, Abs 02/28/2021 05:03:41 0.20 0.00-0.70 (K/uL) Final Basos, Abs 02/28/2021 05:03:41 0.05 0.00-0.20 (K/uL) Final Immature Granulocytes, Number 02/28/2021 05:03:41 0.04 0.00-0.20 (K/uL) Final Performing Location [facility] [address] [facility] [address] [place] [address]
--- OUTSIDE RECORDS SUMMARY | 2022-12-17 03:32 | External Medical Summary ---
Author Name Unknown Address Unknown Organization : Laboratory Report Ordering Provider Test Date Status TERRANCE DE JESUS 01/20/2021 09:57:28 Final Observation Date Value Abnormality Reference (Units ) Status HbA1C 01/20/2021 09:57:28 7.0 Above high normal 4. 0-5.6 (%) Final Performing Location
--- OUTSIDE RECORDS SUMMARY | 2022-12-17 03:32 | External Medical Summary | Summary of Care ---
Author Name Unknown Organization [facility] [place] [address] Care Team Providers Care Appraiser Land Name Role Phone Allison Rodrigez PA-C Primary Care Provider [phone] Reason for Visit * Reason Onset Date Comments Blood Pressure Check 02/03/2021 Encounter Details Date Type Department Care Team Description 02/03/2021 Nurse Only Ancillary 1st Floor, [place] [facility] [place] [address] [place], Nurse Annie 21 [facility] [place] [address] Blood Pressure Check Allergies Active Allergy Reactions Severity Noted Date Comments Eggs Or Egg-Derived Products Diarrhea 021 documented as of this encounter (statuses as of 02/03/2021) Medications Medication Sig Dispensed Refills Start Date End Date Status aspirin enteric coated 81 MG TBEC Take 1 Tab by mouth daily. 0 Active omeprazole (PRILOSEC) 20 MG CPDR Take 1 Cap by mouth daily. 0 Active atorvaSTATin (LIPITOR) 80 MG TabletIndications:Dysl ipidemia, goal LDL below 100 Take 1 Tab by mouth at bedtime. 90 Tab 3 07/15/2019 Active nystatin (NYSTOP) 272837 UNIT/GM powderIndications:Cuta neous candidiasis Apply topically to [...] as of this encounter (statuses as of 02/03/2021) Active Problems Problem Noted Date MANDY (obstructive [...] as of this encounter (statuses as of 02/03/2021) Resolved Problems Problem Noted Date Resolved Date [...] as of this encounter (statuses as of 02/03/2021) Immunizations Name Administration Dates Next Due DTaP [...] Sign Reading Time Taken Comments Blood Pressure 138/74 02/03/2021 9:02 AM EDT Pulse 64 02/03/2021 9:02 AM EDT Temperature - - Respiratory Rate 12 02/03/2021 9:02 AM EDT Oxygen Saturation 97% 02/03/2021 9:02 AM EDT Inhaled Oxygen Concentration - - Weight - - Height - - Body Mass Index - - documented in this encounter Functional Status Functional [...] as of this encounter Progress Notes * Dylan Chong, HUSSAIN - 02/03/2021 9:09 AM EDT Sahra Rodríguez presented for blood [...] Vaccine (1) 1957 CKD PHOS USE SMARTSET 63635 1962 Zoster Vaccines (1 of 2) 1994 Influenza Vaccine (FLU shot) (#1) 2020 07/15/2019, 02/22/2016, 03/08/2015 CKD GFR USE SMARTSET 98754 04/06/202110/05, 10/31/2019, 06/03/2019, Additional history exists DIABETES-EYE EXAM 07/16/2021 07/16/2020, 06/30/2019 DIABETES-FOOT EXAM 07/16/2021 07/16/2020, 07/15/2019 DIABETES-HGBA1C EVERY 6 MONTHS 07/21/2021 01/20/2021, 10/06/2020, 07/16/2020, Additional history exists CKD HGB USE SMARTSET 72673 10/05/202110/05, 10/05/2020, 05/19/2019, Additional history exists Dexa Scan 03/11/2026 03/11/2019 DTaP,Tdap,and Td Vaccines (3 - Td) 03/09/2027 03/09/2017, 03/24/2009 Pneumococcal Vaccine: 65+ Years Completed 05/27/2019, 03/08/2015, 06/30/2014 MENINGOCOCCAL (MENACTRA/MENVEO) Aged Out No longer eligible based on patient's age to complete this topic documented as of this encounter Implants Not on filedocumented as of this encounter Procedures Procedure Name Priority Date/Time Associated Diagnosis Comments BLOOD PRESSURE Routine 02/03/2021 Elevated blood pressure, situational documented in this encounter Results * BLOOD PRESSURE (02/03/2021) Narrative Performed At Sahra Rodríguez presented for blood pressure check [...] next scheduled appt documented in this encounter Visit Diagnoses Diagnosis Elevated blood pressure, situational- Primary Elevated blood pressure reading without diagnosis of hypertension documented in this encounter Advance Directives Documents on File Type Date Recorded Patient Ob Gyn Physician Assistant Expl 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 [...]
--- OUTSIDE RECORDS SUMMARY | 2022-12-17 03:32 | External Medical Summary ---
Author Name Unknown Address Unknown Organization K1F:LABORATORY [facility] - [address] [facility] [place] [place] [address] Laboratory Report Ordering Provider Test Date Status MEME CARDENAS 02/28/2021 05:18:55 Final Observation Date Value Abnormality Reference (Units ) Status Adenovirus DNA [Presence] in Nasopharynx by ROBBI with non-probe detection 02/28/2021 05:18:55 Negative Negative Final Human coronavirus 229E RNA [Presence] in Nasopharynx by ROBBI with non-probe detection 02/28/2021 05:18:55 Negative Negative Final Human coronavirus HKU1 RNA [Presence] in Nasopharynx by ROBBI with non-probe detection 02/28/2021 05:18:55 Negative Negative Final Human coronavirus NL63 RNA [Presence] in Nasopharynx by ROBBI with non-probe detection 02/28/2021 05:18:55 Negative Negative Final Human coronavirus OC43 RNA [Presence] in Nasopharynx by ROBBI with non-probe detection 02/28/2021 05:18:55 Negative Negative Final SARS-CoV-2 (COVID-19) RNA [Presence] in Nasopharynx by ROBBI with non-probe detection 02/28/2021 05:18:55 Negative Negative Final Human metapneumovirus RNA [Presence] in Nasopharynx by ROBBI with non-probe detection 02/28/2021 05:18:55 Negative Negative Final Rhinovirus+Enterovirus RNA [Presence] in Nasopharynx by ROBBI with non-probe detection 02/28/2021 05:18:55 Negative Negative Final Influenza virus A RNA [Presence] in Nasopharynx by ROBBI with non-probe detection 02/28/2021 05:18:55 Negative Negative Final Influenza virus B RNA [Presence] in Nasopharynx by ROBBI with non-probe detection 02/28/2021 05:18:55 Negative Negative Final Parainfluenza virus 1 RNA [Presence] in Nasopharynx by ROBBI with non-probe detection 02/28/2021 05:18:55 Negative Negative Final Parainfluenza virus 2 RNA [Presence] in Nasopharynx by ROBBI with non-probe detection 02/28/2021 05:18:55 Negative Negative Final Parainfluenza virus 3 RNA [Presence] in Nasopharynx by ROBBI with non-probe detection 02/28/2021 05:18:55 Negative Negative Final Parainfluenza virus 4 RNA [Presence] in Nasopharynx by ROBBI with non-probe detection 02/28/2021 05:18:55 Negative Negative Final Respiratory syncytial virus RNA [Presence] in Nasopharynx by ROBBI with non-probe detection 02/28/2021 05:18:55 Negative Negative Final Bordetella pertussis.pertussis toxin promoter region [Presence] in Nasopharynx by ROBBI with non-probe detection 02/28/2021 05:18:55 Negative Negative Final Chlamydophila pneumoniae DNA [Presence] in Nasopharynx by ROBBI with non-probe detection 02/28/2021 05:18:55 Negative Negative Final Mycoplasma pneumoniae DNA [Presence] in Nasopharynx by ROBBI with non-probe detection 02/28/2021 05:18:55 Negative Negative Final Bordetella parapertussis [id number] DNA [Presence] in Nasopharynx by ROBBI with non-probe detection 02/28/2021 05:18:55 Negative Negative Final Performing Location [facility]ORY [facility] - [address] [place] [address]
--- OUTSIDE RECORDS SUMMARY | 2022-12-17 03:32 | External Medical Summary | Summary of Care ---
Author [place] [address] Care Team Providers Care Lamp Developer Name Role Phone Allison Rodrigez PA-C Primary Care Provider Reason for Visit * Reason Onset Date Comments Diarrhea 11/02/202011/02,11/03, 11/04 Encounter Details Date Type Department Care Team Description 11/02/2020 Telephone [facility] 21 [facility] [place] [address] Allison [facility]z PA-C [facility] [place] [address] Diarrhea (11/02,11/03, 11/04) Allergies [...] 90 Tab 3 07/15/2019 Active nystatin (NYSTOP) 445877 UNIT/GM powderIndications:Cut aneous candidiasis Apply topically to [...] 10:57 AM EDT This is not a [facility] patient, [facility]. * Telephone Encounter - Maggie Styles PHARM Tech - 11/04/2020 10:48 AM EDT Pt still has diarrhea and needs something to stop - abdominal only when pt has to go to bathroom Pt is looking for some medication. Pt does not have voice mail Thank you, Maggie Styles [facility] 11/04/2020,10:49 AM * [...] this time. Pt can be reached at [phone]. Please advise and send prescription if appropriate. Thank you, Ladarius Davidson [facility] 11/02/2020, 10:45 AM documented in this encounter Plan of Treatment Upcoming Encounters Date Type Specialty Care Team Description 01/20/2021 Office Visit Family Medicine Allison Rodrigez PA-C [address] [address] Health Maintenance Due Date Last Done Comments COVID-19 Vaccine (1) 1957 CKD PHOS USE SMARTSET 22280 1962 Zoster Vaccines (1 of 2) 1994 Yearly B-12 10/30/2020 10/31/2019, 06/03/2019 Influenza Vaccine (FLU shot) (#1) 2020 07/15/2019, 02/22/2016, 03/08/2015 CKD GFR USE SMARTSET 08075 04/06/202110/05, 10/31/2019, 06/03/2019, Additional history exists DIABETES-HGBA1C EVERY 6 MONTHS 04/07/2021 10/06/2020, 07/16/2020, 10/31/2019, Additional history exists DIABETES-EYE EXAM 07/16/2021 07/16/2020, 06/30/2019 DIABETES-FOOT EXAM 07/16/2021 07/16/2020, 07/15/2019 DIABETES-URINE MICROALBUMIN EVERY 12 MONTHS 07/16/2021 07/16/2020, 06/06/2019 CKD HGB USE SMARTSET 75816 10/05/202110/05, 10/05/2020, 05/19/2019, Additional history exists Dexa [...] Documents on File Type Date 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
--- OUTSIDE RECORDS SUMMARY | 2022-12-17 03:33 | External Medical Summary ---
Author Name Unknown Address Unknown Organization K1F:LABORATORY [facility] - [address] [place] [address] Laboratory Report Ordering Provider Test Date Status JAMIE DESAI 10/05/2020 19:40:00 Final Observation Date Value Abnormality Reference (Units ) Status SYNC LEUKOCYTES IN BLOOD BY AUTOMATED COUNT 10/05/2020 19:40:00 8.73 4.00-10.80 (K/uL) Final Segs 10/05/2020 19:40:00 68.9 40.0-75.0 (%) Final Lymphs % 10/05/2020 19:40:00 21.4 18.0-42.0 (%) Final Monos 10/05/2020 19:40:00 6.6 1.0-11.0 (%) Final Eosinophils 10/05/2020 19:40:00 1.9 0.0-6.0 (%) Final Basos 10/05/2020 19:40:00 0.5 0.0-2.0 (%) Final Immature Granulocyte, Percent 10/05/2020 19:40:00 0.7 0.0-2.0 (%) Final Absolute Segs 10/05/2020 19:40:00 6.01 1.80-7.70 (K/uL) Final Lymphs, absolute 10/05/2020 19:40:00 1.87 1.00-4.80 (K/ul) Final Monos, Abs 10/05/2020 19:40:00 0.58 0.00-1.10 (K/uL) Final Eos, Abs 10/05/2020 19:40:00 0.17 0.00-0.70 (K/uL) Final Basos, Abs 10/05/2020 19:40:00 0.04 0.00-0.20 (K/uL) Final Immature Granulocytes, Number 10/05/2020 19:40:00 0.06 0.00-0.20 (K/uL) Final Performing Location LABORATORY [facility] - [address] [place] [place] [address]
--- OUTSIDE RECORDS SUMMARY | 2022-12-17 03:33 | External Medical Summary ---
Author Name Unknown Address Unknown Organization K1F:LABORATORY [facility] - [place] [address] Laboratory Report Ordering Provider Test Date Status JAIME DESAI 10/05/2020 22:44:08 Final Observation Date Value Abnormality Reference (Units ) Status Troponin T 10/05/2020 22:44:08 27 Above high normal < =14 (ng/L) Final Performing Location LABORATORY [facility] - [place] [address]
--- OUTSIDE RECORDS SUMMARY | 2022-12-17 03:33 | External Medical Summary ---
Author Name Unknown Address Unknown Organization : Laboratory Report Ordering Provider Test Date Status MARKO ONEILL 10/06/2020 17:08:15 Final Observation Date Value Abnormality Reference (Units ) Status Glucose Point of Care 10/06/2020 17:08:15 149 Above high normal 70-120 (mg/dL) Final Performing Location
--- OUTSIDE RECORDS SUMMARY | 2022-12-17 03:33 | External Medical Summary ---
Author Name Unknown Address Unknown Organization K01:LABORATORY [facility] - [address] [place] [place] [address] Laboratory Report Ordering Provider Test Date Status KATHY LUI 10/06/2020 02:05:00 Final Observation Date Value Abnormality Reference (Units ) Status HbA1C 10/06/2020 02:05:00 7.6 Above high normal 4. 0-5.6 (%) Final Performing Location LABORATORY [facility] - [address] [facility] [address]
--- OUTSIDE RECORDS SUMMARY | 2022-12-17 03:33 | External Medical Summary ---
Author Name Unknown Address Unknown Organization K1F:LABORATORY [facility] - [address] [place] [address] Laboratory Report Ordering Provider Test Date Status JAIME DESAI 10/06/2020 00:45:14 Final Observation Date Value Abnormality Reference (Units ) Status SARS Coronavirus 2 10/06/2020 00:45:14 Negative N egative Final Performing Location LABORATORY [facility] - [address] [place] [address]
--- OUTSIDE RECORDS SUMMARY | 2022-12-17 03:33 | External Medical Summary | Summary of Care ---
Author Name Unknown Organization [place] [address] Care Team Providers Care Coping Machine Operator Name Role Phone Allison Rodrigez PA-C Primary Care Provider [phone] Reason for Visit * Reason Onset Date Comments Scan To Read 07/16/2020 Encounter Details Date Type Department Care Team Description 07/16/2020 Telephone [facility] [place] [place] [address] Allison Rodrigez PA-C [facility] [place] [address] Scan To Read Allergies No Known Active Allergiesdocumented as of this encounter (statuses as of 07/16/2020) Medications Medication Sig Dispensed Refills Start Date End Date Status aspirin enteric coated 81 MG TBEC Take 1 Tab by mouth daily. 0 Active omeprazole (PRILOSEC) 20 MG CPDR Take 1 Cap by mouth daily. 0 Active metoprolol tartrate (LOPRESSOR) 25 MG Tablet Take 12.5 mg by mouth 2 times a day. 0 Active clonazePAM (KLONOPIN) 0.5 MG Tablet Take 1 Tab by mouth at bedtime. 0 05/26/2019 Active atorvaSTATin (LIPITOR) 80 MG TabletIndications:Dysl ipidemia, goal LDL below 100 Take 1 Tab by mouth at bedtime. 90 Tab 3 07/15/2019 Active nystatin (NYSTOP) 667559 UNIT/GM powderIndications:Cuta neous candidiasis Apply topically to affected area 3 times a day. 15 g 0 07/15/2019 Active vitamin b-12 (CYANOCOBALAMIN) 1000 MCG/ML injectionIndications:B 12 deficiency Inject 1,000 mcg as directed every 30 days. 1 mL 11 07/15/2019 Active citalopram (CELEXA) 20 MG Tablet Take 1 Tab by mouth daily. 30 Tab 0 09/26/2019 Active busPIRone HCl 10 MG Oral Tablet (BUSPAR)Indications:GA D (generalized anxiety disorder) TAKE ONE TABLET BY MOUTH TWICE A DAY NEEDED FOR ANXIETY 180 Tab 0 04/21/2020 Active metFORMIN HCl 1000 MG Oral Tablet (GLUCOPHAGE)Indication s:Type 2 diabetes mellitus with stage 3a chronic kidney disease, without long-term current use of insulin (HCC) Take 1 Tab by mouth 2 times a day with morning and evening meals. 180 Tab 0 04/21/2020 Active B-12 1000 MCG Sublingual Tablet Sublingual [address] 1,000 MCG UNDER THE TONGUE DAILY 30 Tab 11 07/09/2020 Active Zoster Vac Recomb Adjuvanted 50 MCG/0.5ML Intramuscular Suspension Reconstituted (Shingrix)Indications: Need for vaccination for zoster Inject 0.5 mL into a large muscle now and repeat dose in 60 to 180 days 1 Each 1 07/16/2020 Active documented as of this encounter (statuses as of 07/16/2020) Active Problems Problem Noted Date Type 2 diabetes mellitus wit h stage 3 chronic kidney disease, without long-term current use of insulin 07/16/2020 Severe obesity with body mas s index [...] as of this encounter (statuses as of 07/16/2020) Resolved Problems Problem Noted Date Resolved Date Kidney disease, chronic, stage III (GFR 30-59 ml /min) 11/24/2019 02/26/2020 Overview: Per CKD protocol COPD (chronic obstructive pu lmonary disease) with chronic bronchitis 05/27/2019 05/27/2019 documented as of this encounter (statuses as of 07/16/2020) Immunizations Name Administration Dates Next Due Pneumococcal [...] on file documented as of this encounter Miscellaneous Notes * Telephone Encounter - Kev Leger MD - 07/16/2020 11:36 AM EDT Retinal Scan Imaging Sahra Rodríguez [id number] Retinal Scan Interpretation: There is no retinopathy in both eyes Diabetes Retinal Imaging Care Plan: The retinal scan results are normal - I will forward this encounter to the Ophthalmology DM Letter Pool [[id number]], they will send a normal retinal scan letter to the patient, and the patient will be seen back for a yearly scan. Kev Leger MD 07/16/2020 11:36 AM * Telephone Encounter - Kanika Rios CCMA - 07/16/2020 8:36 AM EDT A Diabetic Telemed Eye image was taken and requires your interpretation for Allison Rodrigez PA-C. Please check your inbasket for image. Patient prefers to be seen at [facility] if a follow-up appointment is needed. documented in this encounter Plan of Treatment Upcoming Encounters Date Type Specialty Care Team Description 01/20/2021 Office Visit Family Medicine Allison Rodrigez PA-C 21 [facility] [place] [address] [phone] Health Maintenance Due Date Last Done Comments CKD PHOS USE SMARTSET 89214 1962 Zoster Vaccines (1 of 2) 1994 Influenza Vaccine (FLU shot) (#1) 2019 07/15/2019, 02/22/2016, 03/08/2015 CKD GFR USE SMARTSET 37547 05/02/202010/30, 06/03/2019, 05/19/2019, Additional history exists CKD HGB USE SMARTSET 49267 05/19/2020 05/19/2019, *DEPRESSION SCREENING,ANNUAL FOR PTS 12 AND OVER 05/30/2020 DIABETES-URINE MICROALBUMIN EVERY 12 MONTHS 06/06/2020 06/06/2019 Yearly B-12 10/30/2020 10/31/2019, 06/03/2019 DIABETES-HGBA1C EVERY 6 MONTHS 01/15/2021 07/16/2020, 10/31/2019, 06/03/2019 DIABETES-EYE EXAM 07/16/2021 07/16/2020, 06/30/2019 DIABETES-FOOT EXAM 07/16/2021 07/16/2020, 07/15/2019 Dexa Scan 03/11/2026 03/11/2019 DTaP,Tdap,and Td Vaccines (3 - Td) 03/09/2027 03/09/2017, 03/24/2009 Pneumococcal Vaccine: 65+ Years Completed 05/27/2019, 03/08/2015, 06/30/2014 MENINGOCOCCAL (MENACTRA/MENVEO) Aged Out No longer eligible based on patient's age to complete this topic documented as of this encounter Implants Not on filedocumented as of this encounter Advance Directives Documents on File Type Date Recorded Patient Pickling Solution Maker 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 Advanced Directive Advanced Directive Advanced Directive
--- OUTSIDE RECORDS SUMMARY | 2022-12-17 03:33 | External Medical Summary ---
Author Name Unknown Address Unknown Organization K1F:LABORATORY [facility] - [address] [place] [address] Laboratory Report Ordering Provider Test Date Status JAIME DESAI 10/05/2020 19:40:00 Final Observation Date Value Abnormality Reference (Units ) Status WBC, Total 10/05/2020 19:40:00 8.73 4.00-10.80 (K/uL) Final RBC 10/05/2020 19:40:00 4.43 3.85-5.15 (M/uL) Final Hemoglobin 10/05/2020 19:40:00 11.7 Below low normal 12.0-15.3 (g/dL) Final HCT 10/05/2020 19:40:00 38.8 36.0-45.2 (%) Final MCV 10/05/2020 19:40:00 87.6 81.5-97.5 (fL) Final MCH 10/05/2020 19:40:00 26.4 Below low normal 27.0-34.0 (pg) Final MCHC 10/05/2020 19:40:00 30.2 Below low normal 32.0-36.0 (g/dL) Final RDW 10/05/2020 19:40:00 13.9 11.5-15.5 (%) Final MPV 10/05/2020 19:40:00 10.2 6.6-11.1 (fL) Final Nucleated erythrocytes/100 leukocytes [Ratio] in Blood by Automated count 10/05/2020 19:40:00 0 <=0 (/100 WBCs) Final Platelets 10/05/2020 19:40:00 281 140-400 (K/uL) Final Performing Location LABORATORY [facility] - [address] [place] [address]
--- OUTSIDE RECORDS SUMMARY | 2022-12-17 03:33 | External Medical Summary | Summary of Care ---
Author Name Unknown Organization [place] [address] Care Team Providers Care Audio Visual Design Engineer Name Role Phone Allison Carlos PA-C Primary Care Provider [phone] Reason for Visit * Reason Comments eRx-Medication Refill Encounter Details Date Type Department Care Team Description 08/19/2020 Refill [facility] [address] [place] [address] Lizeth Guzman PA-C [address] [facility] [address] Allergies No Known Active Allergiesdocumented as of this encounter (statuses as of 08/20/2020) Medications Medication Sig Dispensed Refills Start Date End Date Status aspirin enteric coated 81 MG TBEC Take 1 Tab by mouth daily. 0 Active omeprazole (PRILOSEC) 20 MG CPDR Take 1 Cap by mouth daily. 0 Active clonazePAM (KLONOPIN) 0.5 MG Tablet Take 1 Tab by mouth at bedtime. 0 05/26/2019 Active atorvaSTATin (LIPITOR) 80 MG TabletIndications:D yslipidemia, goal LDL below 100 Take 1 Tab by mouth at bedtime. 90 Tab 3 07/15/2019 Active nystatin (NYSTOP) 972701 UNIT/GM powderIndications:C utaneous candidiasis Apply topically to affected area 3 times a day. 15 g 0 07/15/2019 Active vitamin b-12 (CYANOCOBALAMIN) 1000 MCG/ML injectionIndication s:B12 deficiency Inject 1,000 mcg as directed every 30 days. 1 mL 11 07/15/2019 Active busPIRone HCl 10 MG Oral Tablet (BUSPAR)Indications :ADRIANA (generalized anxiety disorder) TAKE ONE TABLET BY MOUTH TWICE A DAY NEEDED FOR ANXIETY 180 Tab 0 04/21/2020 Active metFORMIN HCl 1000 MG Oral Tablet (GLUCOPHAGE)Indicat ions:Type 2 diabetes mellitus with stage 3a [...] a day. 30 Tab 11 08/02/2020 Active Citalopram Hydrobromide 20 MG Oral Tablet (CeleXA) TAKE ONE TABLET BY MOUTH EVERY DAY 90 Tab 1 08/20/2020 Active citalopram (CELEXA) 20 MG Tablet Take 1 Tab by mouth daily. 30 Tab 0 09/26/2019 1 Discontinued documented as of this encounter (statuses as of 08/20/2020) Active Problems Problem Noted Date Diabetes mellitus with stage 3 chronic k idney disease 07/26/2020 Overview: Per CKD protocol Severe obesity with [...] as of this encounter (statuses as of 08/20/2020) Resolved Problems Problem Noted Date Resolved Date Type 2 diabetes mellitus wit h stage 3 chronic kidney disease, without long-term current use of insulin 07/16/202007/15 Overview: Per CKD protocol Kidney disease, chronic, stage III (GFR 30-59 ml /min) 11/24/2019 02/26/2020 Overview: Per CKD protocol COPD (chronic obstructive pu lmonary disease) with chronic bronchitis 05/27/2019 05/27/2019 documented as of this encounter (statuses as of 08/20/2020) Immunizations Name Administration Dates Next Due Pneumococcal [...] encounter Miscellaneous Notes * Telephone Encounter - Arnav Maravilla, [facility] - 08/20/2020 9:51 AM EDT Signed Prescriptions: Disp Refills Citalopram Hydrobromide 20 MG Oral Tablet *90 Tab 1 Sig: TAKE ONE TABLET BY MOUTH EVERY DAYAuthorizing Provider: Juventino CARLOS User: ARNAV ETIENNE--- documented in this encounter Plan of Treatment Upcoming Encounters Date Type Specialty Care Team Description 01/20/2021 Office Visit Family Medicine Allison Carlos PA-C [address] [place] [place] [address] [phone] Health Maintenance Due Date Last Done Comments CKD PHOS USE SMARTSET 09214 1963 Zoster Vaccines (1 of 2) 1994 CKD GFR USE SMARTSET 54543 05/02/202010/30, 06/03/2019, 05/19/2019, Additional history exists CKD HGB USE SMARTSET 40476 05/19/2020 05/19/2019, Yearly B-12 10/30/2020 10/31/2019, 06/03/2019 Influenza Vaccine (FLU shot) (Season Ended) 2020 07/15/2019, 02/22/2016, 03/08/2015 DIABETES-HGBA1C EVERY 6 MONTHS 01/15/2021 07/16/2020, 10/31/2019, 06/03/2019 DIABETES-EYE EXAM 07/16/2021 07/16/2020, 06/30/2019 DIABETES-FOOT EXAM 07/16/2021 07/16/2020, 07/15/2019 DIABETES-URINE MICROALBUMIN EVERY 12 MONTHS 07/16/2021 07/16/2020, 06/06/2019 Dexa Scan 03/11/2026 03/11/2019 DTaP,Tdap,and Td Vaccines (3 - Td) 03/09/2027 03/09/2017, 03/24/2009 Pneumococcal Vaccine: 65+ Years Completed 05/27/2019, 03/08/2015, 06/30/2014 MENINGOCOCCAL (MENACTRA/MENVEO) Aged Out No longer eligible based on patient's age to complete this topic documented as of this encounter Implants Not on filedocumented as of this encounter Advance Directives Documents on File Type Date Recorded Patient Rugby League Footballer 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 Advanced Directive Advanced Directive Advanced Directive
--- OUTSIDE RECORDS SUMMARY | 2022-12-17 03:33 | External Medical Summary ---
Author Name Unknown Address Unknown Organization K1F:LABORATORY [facility] - [address] [place] [address] Laboratory Report Ordering Provider Test Date Status SANIACHAVEZ 10/06/2020 02:08:00 Final Observation Date Value Abnormality Reference (Units ) Status Troponin T 10/06/2020 02:08:00 29 Above high normal < =14 (ng/L) Final Performing Location LABORATORY [facility] - [address] [place] [address]
--- OUTSIDE RECORDS SUMMARY | 2022-12-17 03:33 | External Medical Summary | Summary of Care ---
Author Name Unknown Organization [facility] [place] [address] Care Team Providers Care Cinema Or Theatre Manager Name Role Phone Allison Rodrigez PA-C Primary Care Provider [phone] Encounter Details Date Type Department Care Team Description 08/05/2020 Telephone Wound Care, [facility] [address] [place] [address] Radha Flores DPM [address] [place] [address] Allergies No Known Active Allergiesdocumented as of this encounter (statuses as of 08/09/2020) Medications Medication Sig Dispensed Refills Start Date [...] 90 Tab 3 07/15/2019 Active nystatin (NYSTOP) 993596 UNIT/GM powderIndications:Cuta neous candidiasis Apply topically to [...] a day. 30 Tab 11 08/02/2020 Active documented as of this encounter (statuses as of 08/09/2020) Active Problems Problem Noted Date Diabetes mellitus [...] as of this encounter (statuses as of 08/09/2020) Resolved Problems Problem Noted Date Resolved Date Type 2 diabetes mellitus wit h stage 3 chronic kidney disease, without long-term current use of insulin 07/16/202007/15 Overview: Per CKD protocol Kidney disease, chronic, stage III (GFR 30-59 ml /min) 11/24/2019 02/26/2020 Overview: Per CKD protocol COPD (chronic obstructive pu lmonary disease) with chronic bronchitis 05/27/2019 05/27/2019 documented as of this encounter (statuses as of 08/09/2020) Immunizations Name Administration Dates Next Due Pneumococcal [...] encounter Miscellaneous Notes * Telephone Encounter - Al Cruz, MANDY - 08/09/2020 2:10 PM EDT Message was left for pt to call back to discuss issue and to possibly schedule with us. * Telephone Encounter - Vianca Donato OSA - 08/05/2020 9:38 AM EDT Pt called in to schedule as new pt with podiatry Thee, pain in left foot. Please advise pt at [phone] with appt. documented in this encounter Plan of Treatment Upcoming Encounters Date Type Specialty Care Team Description 01/20/2021 Office Visit Family Medicine Allison Rodrigez PA-C [address] [place] [address] Health Maintenance Due Date Last Done Comments CKD PHOS USE SMARTSET 67606 1963 Zoster Vaccines (1 of 2) 1994 Influenza Vaccine (FLU shot) (#1) 2019 07/15/2019, 02/22/2016, 03/08/2015 CKD GFR USE SMARTSET 97386 05/02/202010/30, 06/03/2019, 05/19/2019, Additional history exists CKD HGB USE SMARTSET 94309 05/19/2020 05/19/2019, Yearly B-12 10/30/2020 10/31/2019, 06/03/2019 DIABETES-HGBA1C EVERY [...] Documents on File Type Date Recorded Patient Undercover Operator 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 Advanced Directive Advanced Directive Advanced Directive
--- OUTSIDE RECORDS SUMMARY | 2022-12-17 03:33 | External Medical Summary | Summary of Care ---
Author Name Unknown Organization ising Address [facility] [place] [address] Care Team Providers Care Linux System Admin Name Role Phone Allison Rodrigez PA-C Primary Care Provider [phone] Reason for Visit * Reason Onset Date Comments Medication Refill 08/02/2020 Encounter Details Date Type Department Care Team Description 08/02/2020 Refill [facility] 21 [facility] [place], [place] [id number] Allison Rodrigez PA-C 21 [place] [address] Allergies No Known Active Allergiesdocumented as of this encounter (statuses as of 08/02/2020) Medications Medication Sig Dispensed Refills Start Date [...] 90 Tab 3 07/15/2019 Active nystatin (NYSTOP) 732559 UNIT/GM powderIndications:C utaneous candidiasis Apply topically to [...] a day. 30 Tab 11 08/02/2020 Active metoprolol tartrate (LOPRESSOR) 25 MG Tablet Take 12.5 mg by mouth 2 times a day. 0 08/02/2020 Discontinued (Refill) documented as of this encounter (statuses as of 08/02/2020) Active Problems Problem Noted Date Diabetes mellitus [...] as of this encounter (statuses as of 08/02/2020) Resolved Problems Problem Noted Date Resolved Date Type 2 diabetes mellitus wit h stage 3 chronic kidney disease, without long-term current use of insulin 07/16/202007/15 Overview: Per CKD protocol Kidney disease, chronic, stage III (GFR 30-59 ml /min) 11/24/2019 02/26/2020 Overview: Per CKD protocol COPD (chronic obstructive pu lmonary disease) with chronic bronchitis 05/27/2019 05/27/2019 documented as of this encounter (statuses as of 08/02/2020) Immunizations Name Administration Dates Next Due Pneumococcal [...] encounter Miscellaneous Notes * Telephone Encounter - Manuel Alexander Jr., DO - 08/02/2020 11:32 AM EDT Signed Prescriptions: Disp Refills Metoprolol Tartrate 25 MG Oral Tablet (Lop*30 Tab 11 Sig: Take 0.5 Tabs by mouth 2 times a day. Authorizing Provider: MANUEL ALEXANDER JR * Telephone Encounter - Kayleigh Reynolds LPN - 08/02/2020 11:17 AM EDT Pending Prescriptions: Disp Refills Metoprolol Tartrate 25 MG Oral Tablet (Lo*30 Tab 11 Sig: Take 0.5 Tabs by mouth 2 times a day. Last Office/Telemedicine Visit: 07/16/2020 Next Office Visit: 01/20/2021 Scheduled Provider(s): Allison Rodrigez PA-C Last date the medication was ordered: not filled here previously Patient Active Problem List Diagnosis Code Type 2 diabetes mellitus with hemoglobin A1c goal of less than 7.0% ([facility]) E11.9 Dyslipidemia, goal LDL below 100 E78.5 ADRIANA (generalized anxiety disorder) F41.1 S/P aortic valve replacement Z95.2 Right renal mass N28.89 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 Secondary hyperparathyroidism, non-renal (HCC) E21.1 B12 deficiency E53.8 Stage 3a chronic kidney disease N18.31 Severe obesity with body mass index (BMI) of 35.0 to 39.9 with serious comorbidity (HCC) E66.01 Diabetes mellitus with stage 3 chronic kidney disease (HCC) E11.22, N18.30 Labs: Lab Results Component Value Date/Time CREATININE - [facility] 1.2 (H) 10/31/2019 10:03 AM CREATININE, RANDOM URINE - [facility] 154 07/16/2020 09:04 AM CREATININE, RANDOM URINE - [facility] 49 06/06/2019 04:28 PM Lab Results Component Value Date/Time POTASSIUM - [facility] 4.6 10/31/2019 10:03 AM Lab Results Component Value Date/Time TSH - [facility] 2.02 05/19/2019 10:59 PM Lab Results Component Value Date/Time LDL CHOLESTEROL (CALCULATED) - [facility] 66 06/03/2019 07:54 AM LDL CHOLESTEROL (DIRECT MEASURE) - [facility] NOT APPLICABLE 06/03/2019 07:54 AM Lab Results Component Value Date/Time ALT - [facility] 13 10/31/2019 10:03 AM Hemoglobin AIC Results: Lab Results Component Value Date/Time HEMOGLOBIN A1C - [facility] 6.6 (H) 10/31/2019 10:03 AM HEMOGLOBIN A1C - [facility] 7.4 (H) 06/03/2019 07:54 AM HEMOGLOBIN A1C POCT - [facility] 6.7 (H) 07/16/2020 08:27 AM documented in this encounter Plan of Treatment Upcoming Encounters Date Type Specialty Care Team Description 01/20/2021 Office Visit Family Medicine Allison Rodrigez PA-C [address] [place] [address] Health Maintenance Due Date Last Done Comments CKD PHOS USE SMARTSET 21292 1963 Zoster Vaccines (1 of 2) 1994 Influenza Vaccine (FLU shot) (#1) 2019 07/15/2019, 02/22/2016, 03/08/2015 CKD GFR USE SMARTSET 83794 05/02/202010/30, 06/03/2019, 05/19/2019, Additional history exists CKD HGB USE SMARTSET 73747 05/19/2020 05/19/2019, Yearly B-12 10/30/2020 10/31/2019, 06/03/2019 [...] Documents on File Type Date Recorded Patient Sql Ssis Developer 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 Advanced Directive Advanced Directive Advanced Directive
--- OUTSIDE RECORDS SUMMARY | 2022-12-17 03:33 | External Medical Summary ---
Author Name Unknown Address Unknown Organization : Laboratory Report Ordering Provider Test Date Status MARKO ONEILL 10/06/2020 07:38:56 Final Observation Date Value Abnormality Reference (Units ) Status Glucose Point of Care 10/06/2020 07:38:56 164 Above high normal 70-120 (mg/dL) Final Performing Location
--- OUTSIDE RECORDS SUMMARY | 2022-12-17 03:33 | External Medical Summary | Summary of Care ---
Author [place] [address] Care Team Providers Care Client [employer] Specialist Name Role Phone Allison Rodrigez PA-C Primary Care Provider [phone] Reason for Visit * Reason Onset Date Comments Medication Question 10/11/2020 Encounter Details Date Type Department Care Team Description 10/11/2020 Telephone [facility] [place] [address] [facility] [place] [id number] Allison Rodrigez PA-C [address] [facility] [place] [address] Medication Question Allergies No Known Active [...] 90 Tab 3 07/15/2019 Active nystatin (NYSTOP) 508860 UNIT/GM powderIndications:Cut aneous candidiasis Apply topically to [...] NEEDED FOR ANXIETY 180 Tab 1 09/10/2020 Active clonazePAM 0.5 MG Oral Tablet (KlonoPIN) Take 1 Tab by mouth 2 times a day as needed for Anxiety for up to 30 days. 30 Tab 0 10/06/2020 11/05/2020 Active Escitalopram Oxalate 5 MG Oral Tablet (Lexapro) Take 1 Tab by mouth daily. 30 Tab 1 10/07/2020 Active documented as of this encounter (statuses [...] at appointment. * Telephone Encounter - Selene Barreto, forester silviculture - 10/11/2020 11:45 AM EDT Pt calling in to request a dose change on their lexapro and clonazepam. Current dose: 5mg and 0.5mg Requested dose: decrease is dosage or time per day Reason for request: making pt very sleepy, pt states she slept all yesterday and can not stay awaketoday. [facility] [address] [facility] Patient unwilling to speak with pharmacist at this time. Routing to pharmacist [place] to advise. Pt states she doesn't know which one is making her really tired. Selene Barreto Speech Professor [employer] [facility] 10/11/2020 11:46 AM documented in this encounter Plan of Treatment Upcoming Encounters Date Type Specialty Care Team Description 10/12/2020 Office Visit Family Medicine Philip Serrano PA-C [address] [place] [address] [phone] 11/03/2020 Office Visit Cardiology Radha Andersen CRNP [address] [facility] [place] [id number] 01/20/2021 Office Visit Family Medicine Allison Rodrigez PA-C [address] [place] [address] [phone] Health Maintenance Due Date Last Done Comments COVID-19 Vaccine (1) 1957 CKD PHOS USE SMARTSET 68554 1962 Zoster Vaccines (1 of 2) 1994 Yearly B-12 10/30/2020 10/31/2019, 06/03/2019 Influenza Vaccine (FLU shot) (Season Ended) 2020 07/15/2019, 02/22/2016, 03/08/2015 CKD GFR USE SMARTSET 29269 04/06/202110/05, 10/31/2019, 06/03/2019, Additional history exists DIABETES-HGBA1C EVERY 6 MONTHS 04/07/2021 10/06/2020, 07/16/2020, 10/31/2019, Additional history exists DIABETES-EYE EXAM 07/16/2021 07/16/2020, 06/30/2019 DIABETES-FOOT EXAM 07/16/2021 07/16/2020, 07/15/2019 DIABETES-URINE MICROALBUMIN EVERY 12 MONTHS 07/16/2021 07/16/2020, 06/06/2019 CKD HGB USE SMARTSET 67122 10/05/202110/05, 10/05/2020, 05/19/2019, Additional history exists Dexa [...] Documents on File Type Date Recorded Patient Sign Out Clerk 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
--- OUTSIDE RECORDS SUMMARY | 2022-12-17 03:33 | External Medical Summary | Summary of Care ---
Author Name Unknown Organization [facility] [place] [address] Care Team Providers Care Center Rep Name Role Phone Allison Rodrigez PA-C Primary Care Provider [phone] Reason for Visit * Reason Comments Follow Up 6 month return Encounter Details Date Type Department Care Team Description 07/16/2020 Office Visit [facility] [address] [place] [id number] Allison Rodrigez PA-C 21 [facility] [place] [address] Routine medical exam*; Need for vaccination for zoster; DM type 2 nursing care encounter (HCC); Risk and functional assessment; Type 2 diabetes mellitus with chronic kidney disease, without long-term current use of insulin, unspecified CKD stage ([facility]); Type 2 diabetes mellitus with hemoglobin A1c goal of less than 7.0% ([facility]); Type 2 diabetes mellitus with stage 3 chronic kidney disease, without long-term current use of insulin, unspecified whether stage 3a or 3b CKD ([facility]); Dyslipidemia, goal LDL below 100; Stage 3a chronic kidney disease; ADRIANA (generalized anxiety disorder); Secondary hyperparathyroidism, non-renal ([facility]); Severe obesity with body mass index (BMI) of 35.0 to 39.9 with serious comorbidity (HCC) Allergies No Known Active Allergiesdocumented as of [...] 90 Tab 3 07/15/2019 Active nystatin (NYSTOP) 346941 UNIT/GM powderIndications:C utaneous candidiasis Apply topically to [...] 180 days 1 Each 1 07/16/2020 Active empagliflozin (JARDIANCE) 10 MG TABSIndications:Typ e 2 diabetes mellitus with hemoglobin A1c goal of less than 7.0% (HCC) Take 1 Tab by mouth daily. 30 Tab 11 06/14/2019 07/16/2020 Discontinued (Formulary/C ost) documented as of this encounter (statuses as [...] Sign Reading Time Taken Comments Blood Pressure 146/82 07/16/2020 8:53 AM EDT Pulse 74 07/16/2020 8:19 AM EDT Temperature 37 C (98.6 F) 07/16/2020 8:19 AM EDT Respiratory Rate 18 07/16/2020 8:19 AM EDT Oxygen Saturation 98% 07/16/2020 8:19 AM EDT Inhaled Oxygen Concentration - - Weight 104.3 kg (230 lb) 07/16/2020 8:19 AM EDT Height 167.6 cm (5' 6") 07/16/2020 8:19 AM EDT Body Mass Index 37.12 07/16/2020 8:19 AM EDT documented in this encounter Patient Instructions * Patient Instructions* Kanika Rios, [facility] - 07/16/2020 8:17 AM EDT Microalbumin (Urine) Does this test have other names? Urine microalbumin, moderately increased albuminuria What is this test? This test looks for minuscule amounts of albumin in your urine. The test can find out whether diabetes has damaged your kidneys. Albumin is a protein needed for tissue growth and healing. It can leak into your urine when your kidneys aren't working as they should. Because such small amounts of albumin may not show up during routine urine testing, healthcare providers use this test to look for changes in albumin levels that mean complications from diabetes or other conditions. If kidney disease is found early, it may be treated successfully. Diabetes is the leading cause of kidney failure in the [place] Early detection of kidney damage is important to prevent long-term complications. People with diabetes who are between 12 and 70 years old should have a urine test for microalbumin at least once a year.Anyone with type 1 diabetes should begin testing after 5 years of having the disease. Those with type 2 diabetes should be tested when they are diagnosed and then each year after that. If you have high blood pressure, talk with your healthcare provider about how often you should be tested. Why do I need this test? You may need this test if you have diabetes and your healthcare provider wants to see whether you are controlling your blood sugar well enough to prevent damage to your kidneys. You may need to have this test once a year. What other tests might I have along with this test? Your healthcare provider may also order a urine test for creatinine. Creatinine is a chemical wasteproduct created from the body's natural process of converting food into energy. The amount of albumin is measured against the amount of creatinine to find out the lkjmhgu-cw-leguthnnzz ratio, or ACR.If your kidneys are affected, your creatinine levels will rise. What do my test results mean? Test results may vary depending on your age, gender, health history, the method used for the test, and other things. Your test results may not mean you have a problem. Ask your healthcare provider what your test results mean for you. Results for microalbumin are given in milligrams per deciliter (mg/dL). Results for ACR are given in milligrams per gram (mg/g). Normal results are: MA: 0.2 to 1.9 mg/dL MA/creatinine ratio: 0 to 30 mg/g If your results show a small amount of albumin, you may have to repeat the test using a 24-hour urine sample to confirm the results. A moderate amount of albumin could mean early stages of kidney disease, and it's likely your healthcare provider will need to adjust your treatment. Finding microalbumin in your urine also may mean you are at a higher risk for heart disease. Higher levels of microalbumin may also be caused by blood in your urine, a urinary tract infection,and an acid-base imbalance in your blood. How is this test done? This test is done with a urine sample. Your healthcare provider will give you a sterile container to collect a urine sample. You may have to give a urine sample at a specific time. This test may also use a 24-hour urine sample. For this sample, you must collect all of your urine for 24 hours. Empty your bladder completely first in the morning without collecting it. Note the time. Then collect your urine every time you go to the bathroom over the next 24 hours. Does this test pose any risks? This test poses no known risks. What might affect my test results? Vigorous exercise can cause your results to seem higher than they really are. Certain medicines, such as oxytetracycline, can also affect your results. How do I get ready for this test? You don't need to prepare for this test. But be sure your healthcare provider knows about all medicines, herbs, vitamins, and supplements you are taking. This includes medicines that don't need a prescription and any illicit drugs you may use. 1503-5292 [employer]. [address] [place] [address], [place] [address]. All rights reserved. This information is not intended as a substitute for professional medical care. Always follow your healthcare professional's instructions. Dear Sahra Rodríguez, The care of your Diabetes is very important to us. A yearly diabetic eye exam is important to protect your vision. If youre getting an eye exam done outside of [facility] please tell your Eye Doctor to fax or mail us the results of your Diabetic Eye Exam at your next visit. Our Address and Fax Number are listed below to help. Thank you for helping us to improve your Diabetes Care Our Office Address and Fax Number: No primary care provider on file. [address] [address] None Diabetic Retinopathy: Evaluating Your Eyes Diabetic retinopathy is a condition that happens when diabetes damages blood vessels in the rear ofthe eye. It can lead to vision loss. To help catch it early, have a complete dilated eye exam at least once a year. During the exam, the eye healthcare provider will review your medical history, examine your eyes, and check your vision. Women who are and have pre-existing type 1 or type 2 diabetes have an increased risk of retinopathy. Women with diabetes should have an eye exam before or in the first trimester. They should continue to be monitored every trimester and for 1 year after delivery, depending on the severity of the retinopathy. The retina is the light-sensitive part of the eye that allows you to see. High blood sugar can damage blood vessels of the retina and cause them to leak or bleed. This damage can lead to abnormal blood vessel growth. This condition is called diabetic retinopathy. You may not have symptoms early in the disease. Later, there may be floaters, blurred vision, or poor night vision. There may also be partial or complete vision loss. Early cases of diabetic retinopathy can be treated by carefully controlling blood sugar, blood pressure, and cholesterol. Surgery or laser treatments may help restore lost vision. Laser surgery can shrink abnormal blood vessels or close ones that are leaking. Medicines injected in the eye can help decrease swelling of the retina. Home care Take all medicines, including insulin or oral diabetic medicine, exactly as prescribed. Follow the diet advised by your healthcare provider. If you have high cholesterol, follow a low-fat, low-cholesterol diet. Monitor blood sugars as advised. Try to achieve your ideal weight. If you smoke, quit smoking. Tobacco use worsens the effect of diabetes on your blood vessels. If you have high blood pressure, consider buying an automatic blood pressure machine. These are available at most pharmacies. Use this to monitor your blood pressure. Report your blood pressure readings to your healthcare provider. Exercise regularly. Follow-up care Follow up with your healthcare provider, or as advised. You must have a complete eye exam at least once a year, more often if needed. Untreated diabetic retinopathy can lead to complete loss of vision. Occupational therapists can help you adapt to any vision loss you have, including learning techniques to safely administer insulin. When to seek medical advice Call your healthcare provider right away if any of these occur. Increasing blurriness or any sudden changes in your vision Sudden flashes of light inside your eye New floaters (small dots or strings that seem to be moving across your field of vision) Eye pain, redness, or discharge from your eyelid New dark spots appearing in your field of vision Halos around lights Dimness of vision Partial or complete loss of vision Women with diabetes should have a complete eye exam before becoming , or as soon as possible when they find out they are . Retinopathy sometimes worsens during . Your eye exam Your eye healthcare provider uses an eye chart and other tools to check your vision. Then he or sheexamines your eyes for signs of disease. You are given eye drops to widen (dilate) your pupils. Youmay have one or more of the following tests: Tonometry to measure fluid pressure inside the eye. Slit lamp exam to allow the healthcare provider to view the structures of your eye. Ultrasound to create an image of the eye using sound waves. Ultrasound may be used if blood is found in the clear gel that fills the eye (vitreous). Ocular coherence tomography (OCT) to create an image of the retina using light waves. This showsif there is fluid leaking into certain parts of the eye. It can also measure the thickness of the retina. Fluorescein angiography This test may be done to check the health of the inside lining of the eye (retina). It also checks the tiny blood vessels (capillaries) that carry blood to the retina. During the test: Photographs are taken of the retina. A dye is then injected into the bloodstream through the arm or hand. The dye travels to the capillaries in the eye. More photographs are taken of the retina. The dye causes the capillaries to stand out on the photographs. You may feel brief nausea during the procedure. For a few hours after the test, your skin, eyes, and urine may appear yellow. Talk with your healthcare provider for more information about this test. Date Last Reviewed: 09/15/201519990449-[address] [employer] [place] [address]. All rights reserved. This information is not intended as a substitute for professional medical care. Always follow your healthcare professional's instructions. Patient Instructions - Fall Prevention (This education [...] pathway between the bedroom and the bathroom Nava Patient Education Copyright 2008 - 2010 [...] 10 times. Repeat this throughout the day. [employer]ava Patient Education Copyright 2008 - 2010 Nava except where otherwise noted. Preventing Falls: Moving [...] that mean climbing, even on a stepstool. [employer] Patient Education Copyright 2008 - 2010 [...] Wear support stockings (TEDs)if you have edema Kanika Rios, [facility] 07/16[facility]2020 Kegel Exercises Kegel exercises dont require special [...] please feel free to contact our office. Diabetes: Keeping Feet Healthy Inspect your feet [...] calluses yourself. Talk to your doctor or configuration management analyst (a doctor who specializes in foot care) [...] the area doesnt appear to be healing. [id number] The [employer], [address] [place] [address], [place] [address]. All rights reserved. This information is not [...] but it is a good tool to various exceptionalities teacher weight in terms of what is healthy and unhealthy. It is used to identify adults at increased risk for developing weight related medical problems. Estimated body mass index is 37.12 kg/m as calculated from the following: Height as of this encounter: 1.676 m (5' 6"). Weight as of this encounter: 104.3 kg (230 lb). Obesity - BMI 35 kg/m2 to 39.9 [...] message program is also available. Go to Get Together.Quotations Book and seethe message under 'Get Together News' for more information and enrollment. Patient [...] permitted. Keep Honest, Accurate Food logs: * www.trustedsafe.NowForce * www.[employer] * If you bite it - write [...] documented in this encounter Progress Notes * Allison Rodrigez PA-C - 07/16/2020 8:32 AM EDT Subjective Sahra Rodríguez is a 75 year old female that presents for Follow Up (6 month return ) Nursing Notes: Kanika Rios, [facility] 07/16/20 0823 Signed Chief Complaint Patient presents with Follow Up 6 month return Pt c/o difficulty with balance. Pt states at times she feels off balance. HPI Patient presents today for routine follow up. BP stable Weight is up 9 lbs since 10/2019 She has been doing well overall. Reports feeling off balance at times when she first stands up, typically in the morning when getting out of bed. Denies light headedness or dizziness. Will stand up and feel off balance for a few seconds, then will resolve. Has not fallen. No syncope. Admits she does not drink a lot of water. Type 2 DM, goal <7.0%: Taking metformin. Has not been taking Jardiance for the past 2-3 months due to cost and frequent UTIs. Checks sugars 2-3 times per day. FBG typically 101, never <80s. No symptoms of hypoglycemia with this. Denies blurred vision, polyuria, polydipsia, weight loss, paresthesias. Denies episodes of hypoglycemia. HLD S/p aortic valve replacement: Taking metoprolol, atorvastatin. BP mildly elevated today, reports did not take her medication today because she was running late. Denies chest pain, SOB, palpitations, dizziness, orthopnea, peripheral edema, PND, claudication, weight gain. ADRIANA: Taking Celexa, buspirone which control her symptoms well. Tobacco, alcohol, drug use: None Diet/exercise: Appetite is not quite as big as it used to be. Still getting 3 meals per day, eatingbalanced meals. Stays active with walking, yardwork, housework. +routine eye exams Health Maintenance: Agreeable to Rx for Shingrix Will update routine labs, P Will update Urine Cr:alb Objective BP 146/82 | Pulse 74 | Temp 37 C (98.6 F) (Tympanic) | Resp 18 | Ht 1.676 m (5' 6") | Wt 104.3 kg (230 lb) | SpO2 98% | BMI 37.12 kg/m | BSA 2.2 m Body mass index is 37.12 kg/m. BP Readings from Last 3 Encounters: 07/16/20 146/82 10/31/19 124/68 07/15/19 130/70 Wt Readings from Last 3 Encounters: 07/16/20 104.3 kg (230 lb) 10/31/19 100.4 kg (221 lb 4.8 oz) 07/15/19 103.4 kg (228 lb) Physical Exam Constitutional: General: She is not [...] Panel and Lipid Panel Assessment and plan 1. Routine medical exam Discussed routine, age appropriate health and safety measures, including routine eye and dental care, low fat diet, regular exercise, abstinence from nicotine and moderation of alcohol intake. Will update labs and manage appropriately based on results. - CBC WITH WBC DIFFERENTIAL; Future 2. Need for vaccination for zoster - Zoster Vac Recomb Adjuvanted 50 MCG/0.5ML Intramuscular Suspension Reconstituted (Shingrix); Inject 0.5 mL into a large muscle now and repeat dose in 60 to 180 days Dispense: 1 Each; Refill: 1 3. DM type 2 nursing care encounter (HCC) - TELEMEDICINE DIABETIC EYE - DIABETES FOOT EXAM - HEMOGLOBIN A1C, POINT OF CARE 4. Risk and functional assessment 5. Type 2 diabetes mellitus with chronic kidney disease, without long-term current use of insulin, unspecified CKD stage (HCC) - ALBUMIN / CREATININE RATIO, URINE; Future - ALBUMIN / CREATININE RATIO, URINE 6. Type 2 diabetes mellitus with hemoglobin A1c goal of less than 7.0% ([facility]) 7. Type 2 diabetes mellitus with stage 3 chronic kidney disease, without long- term current use of insulin, unspecified whether stage 3a or 3b CKD ([facility]) Stable on Metformin, will continue with current regimen and continue to monitor. 8. Dyslipidemia, goal LDL below 100 Will update labs and manage appropriately based on results. - LIPID PANEL WITH DIRECT LDL IF TG IS HIGH; Future 9. Stage 3a chronic kidney disease - COMPREHENSIVE METABOLIC PANEL; Future - PHOSPHORUS; Future 10. ADRIANA (generalized anxiety disorder) Stable on current medication. Continue to monitor. 11. Secondary hyperparathyroidism, non-renal (HCC) Stable, continue to monitor 12. Severe obesity with body mass index (BMI) of 35.0 to 39.9 with serious comorbidity ([facility]) 1. Counseling regarding weight management given. Encouraged to transition positions slowly - when transitioning from supine to standing, first sit on edge of bed until she has her bearings, then stand slowly and stay still until she feels steady before walking. Also try to increase water intake. Patient stated understanding. Declined PT referral for balance therapy. Follow up Follow Up: Return for Fasting Labs Soon. | For: Fasting Labs Soon | Check-out note: 6 month f/u with myself Follow up if symptoms worsen or fail to improve. Total time today including reviewing chart before the visit, pertinent labs, imaging reports, face to face time, and documentation time was 35 minutes. The above was discussed and understanding was expressed. Allison Rodrigez PA-C Patient counseling on weight management given. * Kanika Rios CCMA - 07/16/2020 8:17 AM EDT Urine microalbumin ordered today. Provider aware. DM Foot Exam completed today. Provider aware. KAHLIL Valera Socks and Shoes Removed for Annual Diabetic [...] surface of foot documented in this encounter Nursing Notes * Kanika Rios CCMA - 07/16/2020 8:17 AM EDT Chief Complaint Patient presents with Follow Up 6 month return Pt c/o difficulty with balance. Pt states at times she feels off balance. documented in this encounter Plan of Treatment Upcoming Encounters Date Type Specialty Care Team Description 01/20/2021 Office Visit Family Medicine Allison Rodrigez PA-C [address] [address] Scheduled Orders Name Type Priority Associated Diagnoses Orde r Schedule ALBUMIN / CREATININE RATIO, URINE Lab Routine Type 2 diabetes mellitus with chronic kidney disease, without long-term current use of insulin, unspecified CKD stage (HCC) Expected: 07/16/2020, Expires: 07/16/2021 COMPREHENSIVE METABOLIC PANEL Lab Routine Stage 3a chronic kidney disease Expected: 07/16/2020 (Approximate), Expires: 07/16/2021 CBC WITH WBC DIFFERENTIAL Lab Routine Routine medical exam Expected: 07/16/2020 (Approximate), Expires: 07/16/2021 LIPID PANEL WITH DIRECT LDL IF TG IS HIGH Lab Routine Dyslipidemia, goal LDL below 100 Expected: 07/16/2020, Expires: 07/16/2021 PHOSPHORUS Lab Routine Stage 3a chronic kidney disease Expected: 07/16/2020 (Approximate), Expires: 07/16/2021 Health Maintenance Due Date Last Done Comments CKD PHOS USE SMARTSET 08683 1962 Zoster Vaccines (1 of 2) 1994 Influenza Vaccine (FLU shot) (#1) 2019 07/15/2019, 02/22/2016, 03/08/2015 CKD GFR USE SMARTSET 16535 05/02/202010/30, 06/03/2019, 05/19/2019, Additional history exists CKD HGB USE SMARTSET 00838 05/19/2020 05/19/2019, *DEPRESSION SCREENING,ANNUAL FOR PTS 12 [...] Comments HEMOGLOBIN A1C, POINT OF CARE Routine 07/16/2020 8:27 AM EDT DM type 2 nursing care encounter ([facility]) TELEMEDICINE DIABETIC EYE Routine 07/16/2020 DM type 2 nursing care encounter (HCC) documented in this encounter Results * HEMOGLOBIN A1C, POINT OF CARE (07/16/2020 8:27 AM EDT) Hemoglobin A1c 6.7(H) 4.0 - 5.6 % [facility]- Specimen Blood [facility] [address] [place] [address] * TELEMEDICINE DIABETIC EYE (07/16/2020) Specimen Narrative Performed At documented in this encounter Visit Diagnoses Diagnosis Routine medical exam- Primary Routine general medical examination at a health care facility Need for vaccination for zoster Need for prophylactic vaccination and inoculation against other viral diseases DM type 2 nursing care encounter (HCC) Type II or unspecified type diabetes mellitus without mention of complication, not stated as uncontrolled Risk and functional assessment Screening for unspecified condition Type 2 diabetes mellitus with chronic kidney disease, without long-term current use of insulin, unspecified CKD stage (HCC) Type 2 diabetes mellitus with stage 3 chronic kidney disease, without long-term current use of insulin, unspecified whether stage 3a or 3b CKD (HCC) Dyslipidemia, goal LDL below 100 Other and unspecified hyperlipidemia Stage 3a chronic kidney disease ADRIANA (generalized anxiety disorder) Generalized anxiety disorder Secondary hyperparathyroidism, non-renal (HCC) Secondary hyperparathyroidism, non-renal Severe obesity with body mass index (BMI) of 35.0 to 39.9 with serious comorbidity (HCC) documented in this encounter Advance Directives Documents on File Type Date Recorded Patient Parts Manager 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 Advanced Directive Advanced Directive Advanced Directive
--- OUTSIDE RECORDS SUMMARY | 2022-12-17 03:33 | External Medical Summary ---
Author Name Unknown Address Unknown Organization K1F:[facility] - [place] [address] Laboratory Report Ordering Provider Test Date Status JAIME DESAI 10/05/2020 19:40:00 Final Observation Date Value Abnormality Reference (Units ) Status Troponin T 10/05/2020 19:40:00 24 Above high normal < =14 (ng/L) Final Performing Location [facility] [place] [id number]
--- OUTSIDE RECORDS SUMMARY | 2022-12-17 03:33 | External Medical Summary | Summary of Care ---
Author Name Unknown [place] [address] Care Team Providers Care Packer Operator Automatic Name Role Phone Allison Rodrigez PA-C Primary Care Provider [phone] Reason for Visit * Reason Onset Date Comments Hospital Follow-Up 10/07/2020 Encounter Details Date Type Department Care Team Description 10/07/2020 Telephone Ancillary 1st Floor, [place] [address] [facility] [place] [address] Sharon Parsons RN Hospital Follow-Up Allergies No Known Active Allergiesdocumented as of this encounter (statuses as of 10/07/2020) Medications Medication Sig Dispensed Refills Start Date End Date Status aspirin enteric coated 81 MG TBEC Take 1 Tab by mouth daily. 0 Active omeprazole (PRILOSEC) 20 MG CPDR Take 1 Cap by mouth daily. 0 Active atorvaSTATin (LIPITOR) 80 MG TabletIndications:Dys lipidemia, goal LDL below 100 Take 1 Tab by mouth at bedtime. 90 Tab 3 07/15/2019 Active nystatin (NYSTOP) 341478 UNIT/GM powderIndications:Cut aneous candidiasis Apply topically to [...] as of this encounter (statuses as of 10/07/2020) Active Problems Problem Noted Date MANDY (obstructive [...] as of this encounter (statuses as of 10/07/2020) Resolved Problems Problem Noted Date Resolved Date [...] as of this encounter (statuses as of 10/07/2020) Immunizations Name Administration Dates Next Due Pneumococcal [...] Telephone Encounter - Sharon Parsons RN - 10/07/2020 1:08 PM EDT Transitions of Care Note Reason for Referral:Recent Admission Phone visit for follow up: NOREEN Admitted to: [facility], Date: 10/05/20 Discharged to: home, Date: 10/06/20 Diagnosis driving hospitalization: other chest pain Source/Contact: Patient SUBJECTIVE Consent: Verbal consent for review of hospital discharge: Yes REVIEW OF SYSTEMS Patient/Other Reports: Current patient/caregiver problems or concerns: 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 CV: Denies problems Pulmonary: Denies problems Chills/Sweats/Fever:Denies chills/sweats Denies fever Appetite:Denies problems such as nausea, vomiting, burning, decreased appetite Current diet: previous diet Bowel: denies problems Bladder: denies problems Wound (If applicable): N/A Pain:Denies Sleep:Denies problems FUNCTIONAL STATUS: ADL'S: Needs Assistance With:N/A as pt is independent IADL'S: Needs Assistance With:N/A as pt is independent Cognitive and Mental Health: denies problems, alert and oriented x 3 and able to communicate, understand instructions, process information. MEDICATION RECONCILIATION Medications: Discharge med list reviewed with patient or caregiver ASSESSMENT Medication Risk Assessment: No risks identified Did patient fail outpatient treatment? No Discharge instructions available for review? Yes PLAN Symptom Monitoring Interventions:Member/caregiver education - signs and symptoms to contact Primary[facility] (DO NOT DELETE-Three san symptoms patient is to report to PCP) 1. Chest pain 2. Increased anxiety 3. Fever/chills Tire SpecialistOrchid Hand of Care interventions/Action Plan: 5 - 7 day follow-up with PCP in place - Date: 10/12/20 Educated on role of NOREEN completed with [...] Medicine Philip Serrano PA-C [address] [address] [phone] 11/03/2020 Office Visit Cardiology Radha Andersen CRNP [address] [place] [address] [place] [place] [address] [phone] 01/20/2021 Office Visit Family Medicine Allison Rodrigez PA-C [address] [address] [phone] Health Maintenance Due Date Last Done Comments COVID-19 Vaccine (1) 1957 CKD PHOS USE SMARTSET 19688 1962 Zoster Vaccines (1 of 2) 1994 Yearly B-12 10/30/2020 10/31/2019, 06/03/2019 Influenza Vaccine (FLU shot) (Season Ended) 2020 07/15/2019, 02/22/2016, 03/08/2015 CKD GFR USE SMARTSET 18304 04/06/202110/05, 10/31/2019, 06/03/2019, Additional history exists DIABETES-HGBA1C EVERY 6 MONTHS 04/07/2021 10/06/2020, 07/16/2020, 10/31/2019, Additional history exists DIABETES-EYE EXAM 07/16/2021 07/16/2020, 06/30/2019 DIABETES-FOOT EXAM 07/16/2021 07/16/2020, 07/15/2019 DIABETES-URINE MICROALBUMIN EVERY 12 MONTHS 07/16/2021 07/16/2020, 06/06/2019 CKD HGB USE SMARTSET 19683 10/05/202110/05, 10/05/2020, 05/19/2019, Additional history exists Dexa [...] Documents on File Type Date Recorded Patient Parish Nurse 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
--- OUTSIDE RECORDS SUMMARY | 2022-12-17 03:33 | External Medical Summary ---
Author Name Unknown Address Unknown Organization [id number]:[facility] [place] [address] [place] [address] Laboratory Report Ordering Provider Test Date Status KATHY LUI 10/06/2020 04:26:01 Final Observation Date Value Abnormality Reference (Units ) Status Methicillin resistant Staphylococcus aureus (MRSA) DNA [Presence] in Nose by ROBBI with probe detection 10/06/2020 04:26:01 Positive Abnormal Negative Final Performing Location [facility] [place] [address] [facility] [address]
--- OUTSIDE RECORDS SUMMARY | 2022-12-17 03:33 | External Medical Summary ---
Author Name Unknown Address Unknown Organization K01:[facility] [place] - [address] [place] [address] Laboratory Report Ordering Provider Test Date Status KATHY LUI 10/06/2020 06:34:38 Final Observation Date Value Abnormality Reference (Units) Status Bacteria identified in Unspecified specimen by Culture 10/06/2020 06:34:38 No significant growth Final Performing Location LAB[facility] [place] - [address] [place] [address]
--- OUTSIDE RECORDS SUMMARY | 2022-12-17 03:33 | External Medical Summary ---
Author Name Unknown Address Unknown Organization : Laboratory Report Ordering Provider Test Date Status MARKO ONEILL 10/06/2020 11:41:05 Final Observation Date Value Abnormality Reference (Units ) Status Glucose Point of Care 10/06/2020 11:41:05 152 Above high normal 70-120 (mg/dL) Final Performing Location
--- OUTSIDE RECORDS SUMMARY | 2022-12-17 03:33 | External Medical Summary ---
Author Name Unknown Address Unknown Organization K1F:LABORATORY [facility] - [address] [place] [address] Laboratory Report Ordering Provider Test Date Status JAIME DESAI 10/05/2020 19:40:00 Final Observation Date Value Abnormality Reference (Units ) Status BUN 10/05/2020 19:40:00 19 6-20 (mg/dL) Final Creatinine 10/05/2020 19:40:00 1.1 Above high normal 0.5-1.0 (mg/dL) Final Glomerular filtration rate/1.73 sq M.predicted [Volume Rate/Area] in Serum, Plasma or Blood by Creatinine-based formula (CKD-EPI) 10/05/2020 19:40:00 50.0 Below low normal >=60.0 (mL/min) Final Performing Location LABORATORY [facility] - [address] [place] [address]
--- OUTSIDE RECORDS SUMMARY | 2022-12-17 03:33 | External Medical Summary ---
Author Name Unknown Address Unknown Organization K1F:LABORATORY [facility] - [place] [address] Laboratory Report Ordering Provider Test Date Status JAIEM DESAI 10/05/2020 20:39:00 Final Observation Date Value Abnormality Reference (Units ) Status Troponin T 10/05/2020 20:39:00 26 Above high normal < =14 (ng/L) Final Performing Location LABORATORY [facility] - [place] [address]
--- OUTSIDE RECORDS SUMMARY | 2022-12-17 03:34 | External Medical Summary | Summary of Care ---
Author Name Unknown Organization [place] [address] Care Team Providers Care Toaster Operator Name Role Phone Lizeth Guzman PA-C Primary Care Provi shamir Reason for Visit * Reason Comments Test Results Encounter Details Date Type Department Care Team Description 11/12/2019 [facility] [address] [place] [address] Lizeth Guzman PA-C [facility] [place] [address] Test Results Allergies No Known Allergiesdocumented as of this encounter (statuses as of 11/12/2019) Medications Medication Sig Dispensed Refills Start Date [...] by mouth at bedtime. 0 05/26/2019 Active MetFORMIN (GLUCOPHAGE) 1000 MG Tablet Take 1,000 mg by mouth 2 times a day with morning and evening meals. 0 Active empagliflozin (JARDIANCE) 10 MG TABSIndications:Type 2 diabetes mellitus with hemoglobin A1c goal of less than 7.0% (HCC) Take 1 Tab by mouth daily. 30 Tab 11 06/14/2019 Active busPIRone (BUSPAR) 10 MG TabletIndications:ADRIANA (generalized anxiety disorder) Take 1 Tab by mouth 2 times a day as needed for Anxiety. 60 Tab 0 07/15/2019 Active atorvaSTATin (LIPITOR) 80 MG TabletIndications:Dys lipidemia, goal LDL below 100 Take 1 Tab by mouth at bedtime. 90 Tab 3 07/15/2019 Active nystatin (NYSTOP) 585461 UNIT/GM powderIndications:Cut aneous candidiasis Apply topically to affected area 3 times a day. 15 g 0 07/15/2019 Active vitamin b-12 (CYANOCOBALAMIN) 1000 MCG/ML injectionIndications: B12 deficiency Inject 1,000 mcg as directed every 30 days. 1 mL 11 07/15/2019 Active citalopram (CELEXA) 20 MG Tablet Take 1 Tab by mouth daily. 30 Tab 0 09/26/2019 Active Cyanocobalamin (B-12) [address] 1 Tab under the tongue daily. 0 09/25/2019 Active Hospital, Clinic, or Other Facility Administered Medication Ordered Dose Route Frequency Start Date End Date Status vitamin b-12 (CYANOCOBALAMIN) inj 1,000 mcgIndications:B12 deficiency 1000 mcg IM [id number] 07/15/2019 06/15/2020 Active documented as of this encounter (statuses as of 11/12/2019) Active Problems Problem Noted Date Type 2 diabetes mellitus with diabetic c [...] as of this encounter (statuses as of 11/12/2019) Resolved Problems Problem Noted Date Resolved Date COPD (chronic obstructive pu lmonary disease) with chronic bronchitis 05/27/2019 05/27/2019 documented as of this encounter (statuses as of 11/12/2019) Immunizations Name Administration Dates Next Due Pneumococcal [...] file Not on file Not on file Travel History Travel Start Travel End COVID-19 Exposure Response Date Recorded In the last month, have you been in contact with someone who was confirmed or suspected to have Coronavirus / COVID-19? No / Unsure 10/31/2019 8:55 AM EDT documented as of this encounter Miscellaneous Notes * Telephone Encounter - Kanika Rios CCMA - 11/12/2019 8:49 AM EDT Pt informed of below message and voiced understanding. * Telephone Encounter - Lizeth Guzman PA-C - 11/12/2019 8:29 AM EDT Please let patient know her A1c has improved. It was previously 7.4 and is now 6.6. Her vitamin-D is at a good level now. Her renal function has dropped slightly. If she is not drinking enough water that this could contribute to that. Please have her push fluids and we will continue to monitor. Please have her complete labs prior to next appointment. documented in this encounter Plan of Treatment Upcoming Encounters Date Type Specialty Care Team Description 02/02/2020 Nurse Only Ancillary Thee, Nurse Annual Wellness, RN [address] [address] [phone] 02/24/2020 Appointment Radiology 05/04/2020 Office Visit Family Medicine Lizeth Guzman PA-C [address] [phone] 06/15/2020 Appointment Radiology 06/29/2020 Office Visit Urology Jessy Ortiz, Indra Kuhn MD [address] [place] [address] [address] [id number] Scheduled Orders Name Type Priority Associated Diagnoses Orde r Schedule BASIC METAB PANEL, BMP Lab Routine Type 2 diabetes mellitus with stage 3 chronic kidney disease, without long-term current use of insulin (HCC) Expected: 11/12/2019 (Approximate), Expires: 11/11/2020 HEMOGLOBIN A1C Lab Routine Type 2 diabetes mellitus with stage 3 chronic kidney disease, without long-term current use of insulin (HCC) Expected: 11/12/2019 (Approximate), Expires: 11/11/2020 Health Maintenance Due Date Last Done Comments Zoster Vaccines (1 of 2) 1994 Influenza Vaccine (FLU shot) (#1) 2019 07/15/2019, 02/22/2016, 03/08/2015 DIABETES-HGBA1C EVERY 6 MONTHS 05/02/2020 0 10/31/2019, 06/03/2019 DIABETES-URINE MICROALBUMIN EVERY 12 MONTHS 06/06/2020 06/06/2019 DIABETES-EYE EXAM 06/29/2020 06/30/2019 DIABETES-FOOT EXAM 07/14/2020 07/15/2019 Yearly B-12 10/30/2020 10/31/2019, 06/03/2019 DXA-SCREENING EVERY 7 YRS- E SMARTSET# [id number] TO ORDER 03/11/2026 03/11/2019 DTaP,Tdap,and Td Vaccines (3 - Td) 03/09/2027 03/09/2017, 03/24/2009 Pneumococcal Vaccine: 65+ Years Completed 05/27/2019, 03/08/2015, 06/30/2014 MENINGOCOCCAL (MENACTRA/MENVEO) Aged Out No longer eligible b ased on patient's age to complete this topic documented as of this encounter Implants Not on filedocumented as of this encounter Visit Diagnoses Diagnosis Type 2 diabetes mellitus with stage 3 chronic kidney disease, without long-term current use of insulin (HCC)- Primary documented in this encounter Advance Directives Documents on File Type Date Recorded Patient Air Quality Technician 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 Advanced Directive
--- OUTSIDE RECORDS SUMMARY | 2022-12-17 03:34 | External Medical Summary | Summary of Care ---
Author Name Unknown [place] [address] Care Team Providers Care Sec Accountant Name Role Phone Lizeth Guzman PA-C Primary Care Provi shamir Reason for Visit * Reason Comments Medication Refill 09/25, 09/28, 09/30 Medication Refill Encounter Details Date Type Department Care Team Description 09/25/2019 Telephone [facility] Thee Jones [address] [place] [address] Naomi Farfan PA-C 21 [facility] [place] [address] Medication Refill (09/25, 09/28, 09/30); Medi... Allergies No Known Allergiesdocumented as of this encounter (statuses as of 10/01/2019) Medications Medication Sig Dispensed Refills Start Date [...] meals. 0 Active empagliflozin (JARDIANCE) 10 MG TABSIndications:Ty pe 2 diabetes mellitus with hemoglobin A1c goal of less than 7.0% (HCC) Take 1 Tab by mouth daily. 30 Tab 11 06/14/2019 Active busPIRone (BUSPAR) 10 MG TabletIndications: ADRIANA (generalized anxiety disorder) Take 1 Tab by mouth 2 times a day as needed for Anxiety. 60 Tab 0 07/15/2019 Active atorvaSTATin (LIPITOR) 80 MG TabletIndications: Dyslipidemia, goal LDL below 100 Take 1 Tab by mouth at bedtime. 90 Tab 3 07/15/2019 Active nystatin (NYSTOP) 552667 UNIT/GM powderIndications: Cutaneous candidiasis Apply topically to affected area 3 times a day. 15 g 0 07/15/2019 Active vitamin b-12 (CYANOCOBALAMIN) 1000 MCG/ML injectionIndicatio ns:B12 deficiency Inject 1,000 mcg as directed every 30 days. 1 mL 11 07/15/2019 Active citalopram (CELEXA) 20 MG Tablet Take 1 Tab by mouth daily. 30 Tab 0 09/26/2019 Active citalopram (CELEXA) 20 MG Tablet Take 1 Tab by mouth daily. 0 05/26/2019 09/25/2019 Discontinued (Refill) Hospital, Clinic, or Other Facility Administered Medication Ordered Dose Route Frequency Start Date End Date Status vitamin b-12 (CYANOCOBALAMIN) inj 1,000 mcgIndications:B12 deficiency 1000 mcg IM [id number] 07/15/2019 06/15/2020 Active documented as of this encounter (statuses as of 10/01/2019) Active Problems Problem Noted Date Type 2 [...] as of this encounter (statuses as of 10/01/2019) Resolved Problems Problem Noted Date Resolved Date COPD (chronic obstructive pu lmonary disease) with chronic bronchitis 05/27/2019 05/27/2019 documented as of this encounter (statuses as of 10/01/2019) Immunizations Name Administration Dates Next Due Pneumococcal [...] have Coronavirus / COVID-19? No / Unsure 09/16/2019 9:46 AM EDT documented as of this encounter Miscellaneous Notes * Telephone Encounter - Ashlie Macias LPN - 10/01/2019 11:22 AM EDT Voice mailbox not set up, unable to let msg * Telephone Encounter - Ashlie Macias LPN - 09/29/2019 9:07 AM EDT Voice mailbox not set up, unable to let msg * Telephone Encounter - Ashlie Macias LPN - 09/26/2019 11:41 AM EDT Na pt #, voice mailbox not set up, unable to let msg * Telephone Encounter - Lizeth Guzman PA-C - 09/26/2019 7:35 AM EDT Signed. Please make sure she keeps f/u appt * Telephone Encounter - Lizeth Guzman PA-C - 09/26/2019 7:33 AM EDT Signed Prescriptions: Disp Refills citalopram (CELEXA) 20 MG Tablet 30 Tab 0 Sig: Take 1 Tab by mouth daily. Authorizing Provider: LIZETH GUZMAN * Telephone Encounter - Naomi Farfan PA-C - 09/25/2019 6:19 PM EDT Pending Prescriptions: Disp Refills citalopram (CELEXA) 20 MG Tablet 30 Tab 0 Sig: Take 1 Tab by mouth daily. * Telephone Encounter - Naomi Farfan PA-C - 09/25/2019 6:18 PM EDT Pt has follow up with [place] Guzman Will forward refill encounter for review * Telephone Encounter - Waleska Elizabeth PHARM Tech - 09/25/2019 2:29 PM EDT Medication(s) is/are listed as "Historical". Pt confirmed the current dosage, directions, and qty that they are normally prescribed, as reflected in the pending order below. This is also indicated from encounter on 05/27/2019 "Continue celexa". Confirmed patient has been seen within the last year..Please review and approve if appropriate. Pending Prescriptions: Disp Refills citalopram (CELEXA) 20 MG Tablet 30 Tab 0 Sig: Take 1 Tab by mouth daily. Last Office/Telemedicine Visit: 07/15/2019 Next Office Visit: 10/16/2019 Scheduled Provider(s): Lizeth Guzman PA-C If no future appointments scheduled, and last appointment is greater than a year ago, please schedule patient for a follow-up appointment Last date the medication was ordered: Historical Patient Phone Numbers Labs: Lab Results Component Value Date/Time CREAT 1.0 06/03/2019 07:54 AM POTASSIUM 4.7 06/03/2019 07:54 AM TSH 2.02 05/19/2019 10:59 PM LDLCALC 66 06/03/2019 07:54 AM ALT 16 06/03/2019 07:54 AM HGBA1C 7.4 (H) 06/03/2019 07:54 AM documented in this encounter Plan of Treatment Upcoming Encounters Date Type Specialty Care Team Description 10/16/2019 Office Visit Family Medicine Lizeth Guzman PA-C [address] [phone] 02/24/2020 Appointment Radiology 06/15/2020 Appointment Radiology 06/29/2020 Office Visit Urology Jessy Ortiz, Indra Kuhn MD [address] [place] [phone] Health Maintenance Due Date Last Done Comments Zoster Vaccines (1 of 2) 1994 DIABETES-HGBA1C EVERY 6 MONTHS 12/02/2019 06/03/2019 Yearly B-12 06/03/2020 06/03/2019 DIABETES-URINE MICROALBUMIN EVERY 12 MONTHS 06/06/2020 06/06/2019 DIABETES-EYE EXAM 06/29/2020 06/30/2019 DIABETES-FOOT EXAM 07/14/2020 07/15/2019 DXA-SCREENING EVERY 7 YRS- E SMARTSET# [id number] TO ORDER 03/11/2026 03/11/2019 DTaP,Tdap,and Td Vaccines (3 - Td) 03/09/2027 03/09/2017, 03/24/2009 Pneumococcal Vaccine: 65+ Years Completed 05/27/2019, 03/08/2015, 06/30/2014 Influenza Vaccine (FLU shot) Completed , 02/22/2016, 03/08/2015 MENINGOCOCCAL (MENACTRA/MENVEO) Aged Out No longer eligible b ased on patient's age to complete this topic documented as of this encounter Implants Not on filedocumented as of this encounter Advance Directives Documents on File Type Date Recorded Patient Group Marketing Vp 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 Advanced Directive
--- OUTSIDE RECORDS SUMMARY | 2022-12-17 03:34 | External Medical Summary ---
Author Name Unknown Address [address] [place] [phone] Phone Organization K01:[facility] [address] [place] [id number] Laboratory Report Ordering Provider Test Date Status AMRIBELL BILLINGSLEYN 10/31/2019 10:03:00 Final Observation Date Value Abnormality Reference (Units ) Status BUN 10/31/2019 17:17 11 6-20 (mg/dL) Final Creatinine 10/31/2019 17:17 1.2 Above high normal 0.5- 1.0 (mg/dL) Final E Glom Filt Rate 10/31/2019 17:17 46.5 Below low normal >60 Final Performing Location [facility] [address] [facility] [address]
--- OUTSIDE RECORDS SUMMARY | 2022-12-17 03:34 | External Medical Summary ---
Author Name Unknown Address [facility] [place] [address] Phone Organization K01:[place] [id number] Laboratory Report Ordering Provider Test Date Status CIARA BILLINGSLEY 10/31/2019 10:03:00 Final Observation Date Value Abnormality Reference (Units ) Status 25-OH Vitamin D total 10/31/2019 17:53 50 > 19 (ng/mL) Final Performing Location [address] [address]
--- OUTSIDE RECORDS SUMMARY | 2022-12-17 03:34 | External Medical Summary | Summary of Care ---
Author Name Unknown Organization [facility] [place] [address] Care Team Providers Care Financial Services Internship Name Role Phone Lizeth Guzman PA-C Primary Care Provi shamir Reason for Visit * Reason Comments Follow Up 3 month return Encounter Details Date Type Department Care Team Description 10/31/2019 Office Visit [facility] 21 [facility] [place] [address] Lizeth Guzman PA-C 21 [facility] [place] [address] Type 2 diabetes mellitus with stage 3 chronic kidney disease, without long-term current use of insulin ([facility])*; Type 2 diabetes mellitus with hemoglobin A1c goal of less than 7.0% ([facility]); Secondary hyperparathyroidism, non-renal ([facility]); ADRIANA (generalized anxiety disorder); Dyslipidemia, goal LDL below 100; B12 deficiency; Right renal mass Allergies No Known Allergiesdocumented as of this encounter (statuses as of 10/31/2019) Medications Medication Sig Dispensed Refills Start Date [...] 90 Tab 3 07/15/2019 Active nystatin (NYSTOP) 715192 UNIT/GM powderIndications:Cut aneous candidiasis Apply topically to [...] inj 1,000 mcgIndications:B12 deficiency 1000 mcg IM [id number] 07/15/2019 06/15/2020 Active documented as of this encounter (statuses as of 10/31/2019) Active Problems Problem Noted Date Type 2 [...] as of this encounter (statuses as of 10/31/2019) Resolved Problems Problem Noted Date Resolved Date COPD (chronic obstructive pu lmonary disease) with chronic bronchitis 05/27/2019 05/27/2019 documented as of this encounter (statuses as of 10/31/2019) Immunizations Name Administration Dates Next Due Pneumococcal [...] AM EDT documented as of this encounter Last Filed Vital Signs Vital Sign Reading Time Taken Comments Blood Pressure 124/68 10/31/2019 9:06 AM EDT Pulse 60 10/31/2019 9:06 AM EDT Temperature 36.7 C (98.1 F) 10/31/2019 9:06 AM ED T Respiratory Rate 16 10/31/2019 9:06 AM EDT Oxygen Saturation 96% 10/31/2019 9:06 AM EDT Inhaled Oxygen Concentration - - Weight 100.4 kg (221 lb 4.8 oz) 10/31/2019 9:06 AM EDT Height - - Body Mass Index 35.72 05/19/2019 10:05 PM EST documented in this encounter Progress Notes * Lizeth Guzman PA-C - 10/31/2019 9:11 AM EDT Subjective Sahra Rodríguez is a 74 year old female. Chief Complaint Patient presents with Follow Up 3 month return Nursing Notes: Leslye Lopez LPN 10/31/19 0916 Signed Chief Complaint Patient presents with Follow Up 3 month return Needs her Vit B12 inj today HPI: Pt presents today for a routine exam She denies any significant change in her general health and she has no acute concerns today. No recent routine labs done for review. PMH: Patient Active Problem List Diagnosis Code [...] hyperparathyroidism, non-renal (HCC) E21.1 B12 deficiency E53.8 Past Surgical History: Procedure Laterality Date REMOVE CATARACT, INSERT LENS PROSTH Bilateral REMOVE GALLBLADDER 1986 REPLACEMENT OF AORTIC VALVE (NICOLE) 2010 Family History Problem Relation Age of Onset Heart attack Mother Stroke Sister Cancer Brother unknown primary Social History Socioeconomic History Marital status: Spouse name: Not on file Number of children: Not on file Years of education: Not on file Highest education level: Not on file Occupational History Not on file Social Needs Financial resource strain: Not on file Food insecurity: Worry: Never true Inability: Never true Transportation needs: Medical: Not on file Non-medical: Not on file Tobacco Use Smoking status: Never Smoker Smokeless tobacco: Never Used Substance and Sexual Activity Alcohol use: Never Frequency: Never Drug use: Never Comment: no h/o IVDA Sexual activity: Not Currently Lifestyle Physical activity: Days per week: 0 days Minutes per session: Not on file Stress: Not on file Relationships Social connections: Talks on phone: Not on file Gets together: Not on file Attends orthodox service: Not on file Active member of club or organization: Not on file Attends meetings of clubs or organizations: Not on file Relationship status: Not on file Intimate partner violence: Fear of current or ex partner: Not on file Emotionally abused: Not on file Physically abused: Not on file Forced sexual activity: Not on file Other Topics Concern Not on file Social History Narrative Not on file Vaping/E-Cigarette Use Vaping/E-Cigarette Use Never User Vaping/E-Cigarette Substances Vaping/E-Cigarette Devices Current Outpatient Medications Medication Sig Dispense Refill Cyanocobalamin (B-12) [address] 1 Tab under the tongue daily. citalopram (CELEXA) 20 MG Tablet Take 1 Tab by mouth daily. 30 Tab 0 atorvaSTATin (LIPITOR) 80 MG Tablet Take 1 Tab by mouth at bedtime. 90 Tab 3 busPIRone (BUSPAR) 10 MG Tablet Take 1 Tab by mouth 2 times a day as needed for Anxiety. 60 Tab0 nystatin (NYSTOP) 743462 UNIT/GM powder Apply topically to affected area 3 times a day. 15 g 0 vitamin b-12 (CYANOCOBALAMIN) 1000 MCG/ML injection Inject 1,000 mcg as directed every 30 days.1 mL 11 empagliflozin (JARDIANCE) 10 MG TABS Take 1 Tab by mouth daily. 30 Tab 11 aspirin enteric coated 81 MG TBEC Take 1 Tab by mouth daily. MetFORMIN (GLUCOPHAGE) 1000 MG Tablet Take 1,000 mg by mouth 2 times a day with morning and evening meals. metoprolol tartrate (LOPRESSOR) 25 MG Tablet Take 12.5 mg by mouth 2 times a day. omeprazole (PRILOSEC) 20 MG CPDR Take 1 Cap by mouth daily. clonazePAM (KLONOPIN) 0.5 MG Tablet Take 1 Tab by mouth at bedtime. Review of patient's allergies indicates: No Known Allergies Review of Systems Constitutional: Negative. HENT: Negative. Eyes: Negative. Respiratory: Negative. Cardiovascular: Negative. Gastrointestinal: Negative. Genitourinary: Negative. Skin: Negative. Neurological: Negative. Psychiatric/Behavioral: Negative. Objective BP 124/68 | Pulse 60 | Temp (Src) 98.1 (Tympanic) | Resp 16 | Wt 221 lbs 4.8 oz (100.381kg) | BMI 35.72 kg/m | BSA 2.16 m | SaO2 96% Physical Exam Vitals signs and nursing note reviewed. Constitutional: General: She is not in acute distress. Appearance: Normal appearance. She is obese. HENT: Head: Normocephalic and atraumatic. Right Ear: Tympanic membrane, ear canal and external ear normal. Left Ear: Tympanic membrane, ear canal and external ear normal. Nose: Nose normal. Mouth/Throat: Mouth: Mucous membranes are moist. Pharynx: Oropharynx is clear. Eyes: Extraocular Movements: Extraocular movements intact. Conjunctiva/sclera: Conjunctivae normal. Pupils: Pupils are equal, round, and reactive to light. Neck: Musculoskeletal: Normal range of motion and neck supple. Cardiovascular: Rate and Rhythm: Normal rate and regular rhythm. Pulses: Normal pulses. Heart sounds: Normal heart sounds. Pulmonary: Effort: Pulmonary effort is normal. Breath sounds: Normal breath sounds. Abdominal: General: Bowel sounds are normal. There is no distension. Palpations: Abdomen is soft. There is no mass. Tenderness: There is no abdominal tenderness. Skin: General: Skin is warm and dry. Capillary Refill: Capillary refill takes less than 2 seconds. Neurological: General: No focal deficit present. Mental Status: She is alert. Psychiatric: Mood and Affect: Mood normal. ASSESSMENT/PLAN: Type 2 diabetes mellitus with stage 3 chronic kidney disease, without long-term current use of insulin (HCC) (Primary) - will recheck A1c today Type 2 diabetes mellitus with hemoglobin A1c goal of less than 7.0% (HCC) Secondary hyperparathyroidism, non-renal (HCC) ADRIANA (generalized anxiety disorder) - well controlled with celexa Dyslipidemia, goal LDL below 100 - on high dose statin B12 deficiency Right renal mass - follows with urology Follow Up: Return in about 6 months (around 05/02/2020) for Routine follow up. | For: Routine followup | Check-out note: Labs done today Schedule AWV in 3 mos Lizeth Guzman PA-C documented in this encounter Nursing Notes * Leslye Lopez LPN - 10/31/2019 9:47 AM EDT Pre-Administration Time Out Procedure Performed: Yes Patient Identified (Ask Name/Date of ): Yes Does the patient have a fever greater than 101 degrees today? No Patient allergic to latex? No Has the patient ever fainted after receiving an injection? No VFC Stock: No Injection(s) verified: Yes, Injection Name: Vit B12 Verified Side and Site: Yes Verified Shot(s) with Parent(s)/Patient: Yes * Leslye Lopez LPN - 10/31/2019 9:05 AM EDT Chief Complaint Patient presents with Follow Up 3 month return Needs her Vit B12 inj today documented in this encounter Plan of Treatment Upcoming Encounters Date Type Specialty Care Team Description 02/02/2020 Nurse Only Ancillary Thee, Nurse Annual Wellness, RN [address] [id number] 02/24/2020 Appointment Radiology 05/04/2020 Office Visit Family Medicine Lizeth Guzman PA-C [address] [place] [id number] 06/15/2020 Appointment Radiology 06/29/2020 Office Visit Urology Indra Jiménez Jr., MD [address] [address] [place] [address] Health Maintenance Due Date Last Done Comments Zoster Vaccines (1 of 2) 1994 DIABETES-HGBA1C EVERY 6 MONTHS 12/02/2019 06/03/2019 Influenza Vaccine (FLU shot) (#1) 2019 07/15/2019, 02/22/2016, 03/08/2015 Yearly B-12 06/03/2020 06/03/2019 DIABETES-URINE MICROALBUMIN EVERY 12 MONTHS 06/06/2020 06/06/2019 DIABETES-EYE EXAM 06/29/2020 06/30/2019 DIABETES-FOOT EXAM 07/14/2020 07/15/2019 DXA-SCREENING EVERY 7 YRS- E SMARTSET# [id number] TO ORDER 03/11/2026 03/11/2019 DTaP,Tdap,and Td Vaccines [...] long-term current use of insulin (HCC)- Primary Type 2 diabetes mellitus with hemoglobin A1c goal of less than 7.0% (HCC) Secondary hyperparathyroidism, non-renal (HCC) Secondary hyperparathyroidism, non-renal ADRIANA (generalized anxiety disorder) Generalized anxiety disorder Dyslipidemia, goal LDL below 100 Other and unspecified hyperlipidemia B12 deficiency Other B-complex deficiencies Right renal mass Unspecified disorder of kidney and ureter documented in this encounter Administered Medications Active Administered Medications - up to 3 most recent administrations Medication Order MAR Action Action Date Dose Rate Site vitamin b-12 (CYANOCOBALAMIN) inj 1,000 mcg 1,000 mcg, Intramuscular, [id number], First dose on Sun07/15/19 at 1045, Last dose on Sun05/18/20 at 1045, For 12 doses Given 10/31/2019 9:48 AM EDT 1,000 mcg Deltoid Left Upper documented in this encounter Advance Directives Documents on File Type Date Recorded Patient Remote Inpatient Coder 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 Advanced Directive"
--- OUTSIDE RECORDS SUMMARY | 2022-12-17 03:34 | External Medical Summary | Summary of Care ---
Author Name Unknown Organization [facility] [place] [address] Care Team Providers Care Superintendent Drilling Name Role Phone Unavailable Primary Care Provider Unavailabl e Reason for Visit * Reason Onset Date Comments No Show 05/04/2020 #1 Encounter Details Date Type Department Care Team Description 05/04/2020 Telephone [facility] [place] 21 [facility] [place] [address] Allison Rodrigez PA-C 21 [facility] [place] [address] No Show (#1) Allergies No Known Active Allergiesdocumented as of this encounter (statuses as of 05/04/2020) Medications Medication Sig Dispensed Refills Start Date [...] by mouth at bedtime. 0 05/26/2019 Active empagliflozin (JARDIANCE) 10 MG TABSIndications:Type 2 diabetes mellitus with hemoglobin A1c goal of less than 7.0% (HCC) Take 1 Tab by mouth daily. 30 Tab 11 06/14/2019 Active atorvaSTATin (LIPITOR) 80 MG TabletIndications:Dys lipidemia, goal LDL below 100 Take 1 Tab by mouth at bedtime. 90 Tab 3 07/15/2019 Active nystatin (NYSTOP) 265970 UNIT/GM powderIndications:Cut aneous candidiasis Apply topically to [...] under the tongue daily. 0 09/25/2019 Active busPIRone HCl 10 MG Oral Tablet (BUSPAR)Indications:G AD (generalized anxiety disorder) TAKE ONE TABLET BY MOUTH TWICE A DAY NEEDED FOR ANXIETY 180 Tab 0 04/21/2020 Active metFORMIN HCl 1000 MG Oral Tablet (GLUCOPHAGE)Indicatio ns:Type 2 diabetes mellitus with stage 3a chronic kidney disease, without long-term current use of insulin (HCC) Take 1 Tab by mouth 2 times a day with morning and evening meals. 180 Tab 0 04/21/2020 Active Hospital, Clinic, or Other Facility Administered Medication Ordered Dose Route Frequency Start Date End Date Status vitamin b-12 (CYANOCOBALAMIN) inj 1,000 mcgIndications:B12 deficiency 1000 mcg IM [id number] 07/15/2019 06/15/2020 Active documented as of this encounter (statuses as of 05/04/2020) Active Problems Problem Noted Date Stage 3a chronic kidney disease 02/23/20 20 [...] as of this encounter (statuses as of 05/04/2020) Resolved Problems Problem Noted Date Resolved Date Kidney disease, chronic, stage III (GFR 30-59 ml /min) 11/24/2019 02/26/2020 Overview: Per CKD protocol COPD (chronic obstructive pu lmonary disease) with chronic bronchitis 05/27/2019 05/27/2019 documented as of this encounter (statuses as of 05/04/2020) Immunizations Name Administration Dates Next Due Pneumococcal [...] Recorded Female 07/15/2019 8:01 AM E DT documented as of this encounter Miscellaneous Notes * Telephone Encounter - Kanika Rios CCMA - 05/04/2020 9:43 AM EST No show letter #1 sent. Pt missed appt today. documented in this encounter Plan of Treatment Upcoming Encounters Date Type Specialty Care Team Description 06/15/2020 Appointment Radiology 06/29/2020 Office Visit Urology Indra Jiménez Jr., MD [address] [address] [place] [address] Health Maintenance Due Date Last Done Comments CKD PHOS USE SMARTSET 46557 1962 Zoster Vaccines (1 of 2) 1994 Influenza Vaccine (FLU shot) (#1) 2019 07/15/2019, 02/22/2016, 03/08/2015 CKD GFR USE SMARTSET 99550 05/02/202010/30, 06/03/2019, 05/19/2019, Additional history exists DIABETES-HGBA1C EVERY 6 MONTHS 05/02/2020 10/31/2019, 06/03/2019 CKD HGB USE SMARTSET 00612 05/19/2020 05/19/2019, DIABETES-URINE MICROALBUMIN EVERY 12 MONTHS 06/06/2020 06/06/2019 DIABETES-EYE EXAM 06/29/2020 06/30/2019 DIABETES-FOOT EXAM 07/14/2020 07/15/2019 Yearly B-12 10/30/2020 10/31/2019, 06/03/2019 Dexa Scan 03/11/2026 03/11/2019 DTaP,Tdap,and Td Vaccines (3 - Td) 03/09/2027 03/09/2017, 03/24/2009 Pneumococcal Vaccine: 65+ Years Completed 05/27/2019, 03/08/2015, 06/30/2014 MENINGOCOCCAL (MENACTRA/MENVEO) Aged Out No longer eligible based on patient's age to complete this topic documented as of this encounter Implants Not on filedocumented as of this encounter Advance Directives Documents on File Type Date Recorded Patient Rim Roller Setter 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 Advanced Directive
--- OUTSIDE RECORDS SUMMARY | 2022-12-17 03:34 | External Medical Summary | Summary of Care ---
Author Name Unknown Organization [facility] [place] [address] Care Team Providers Care Broadcast Designer Name Role Phone Unavailable Primary Care Provider Unavailabl e Reason for Visit * Reason Comments eRx-Medication Refill Encounter Details Date Type Department Care Team Description 07/08/2020 Refill [facility] [place] 21 [place] [address] Jose Cruz Farfan PA-C 21 [facility] [place] [address] Allergies No Known Active Allergiesdocumented as of this encounter (statuses as of 07/09/2020) Medications Medication Sig Dispensed Refills Start Date [...] 0 05/26/2019 Active empagliflozin (JARDIANCE) 10 MG TABSIndications:Ty pe 2 diabetes mellitus with hemoglobin A1c goal of less than 7.0% (HCC) Take 1 Tab by mouth daily. 30 Tab 11 06/14/2019 Active atorvaSTATin (LIPITOR) 80 MG TabletIndications: Dyslipidemia, goal LDL below 100 Take 1 Tab by mouth at bedtime. 90 Tab 3 07/15/2019 Active nystatin (NYSTOP) 876764 UNIT/GM powderIndications: Cutaneous candidiasis Apply topically to affected area 3 times a day. 15 g 0 07/15/2019 Active vitamin b-12 (CYANOCOBALAMIN) 1000 MCG/ML injectionIndicatio ns:B12 deficiency Inject 1,000 mcg as directed every 30 days. 1 mL 11 07/15/2019 Active citalopram (CELEXA) 20 MG Tablet Take 1 Tab by mouth daily. 30 Tab 0 09/26/2019 Active busPIRone HCl 10 MG Oral Tablet (BUSPAR)Indication s:ADRIANA (generalized anxiety disorder) TAKE ONE TABLET BY MOUTH TWICE A DAY NEEDED FOR ANXIETY 180 Tab 0 04/21/2020 Active metFORMIN HCl 1000 MG Oral Tablet (GLUCOPHAGE)Indica tions:Type 2 diabetes mellitus with stage 3a chronic kidney disease, without long-term current use of insulin (HCC) Take 1 Tab by mouth 2 times a day with morning and evening meals. 180 Tab 0 04/21/2020 Active B-12 1000 MCG Sublingual Tablet Sublingual PLACE 1,000 MCG UNDER THE TONGUE DAILY 30 Tab 11 07/09/2020 Active Cyanocobalamin (B-12) [address] 1 Tab under the tongue daily. 0 09/25/2019 07/09/2020 Discontinued documented as of this encounter (statuses as of 07/09/2020) Active Problems Problem Noted Date Stage 3a [...] as of this encounter (statuses as of 07/09/2020) Resolved Problems Problem Noted Date Resolved Date Kidney disease, chronic, stage III (GFR 30-59 ml /min) 11/24/2019 02/26/2020 Overview: Per CKD protocol COPD (chronic obstructive pu lmonary disease) with chronic bronchitis 05/27/2019 05/27/2019 documented as of this encounter (statuses as of 07/09/2020) Immunizations Name Administration Dates Next Due Pneumococcal [...] encounter Miscellaneous Notes * Telephone Encounter - Jose Cruz Farfan PA-C - 07/09/2020 4:29 PM EDT Signed Prescriptions: Disp Refills B-12 1000 MCG Sublingual Tablet Sublingual 30 Tab 11 Sig: PLACE 1,000 MCG UNDER THE TONGUE DAILY Authorizing Provider: JOSE CRUZ FARFAN * Telephone Encounter - Arnav Maravilla [facility] - 07/08/2020 12:49 PM EDT Pending Prescriptions: Disp Refills B-12 1000 MCG Sublingual Tablet Sublingua*30 Tab 11 Sig: PLACE 1,000 MCG UNDER THE TONGUE DAILY * Telephone Encounter - Arnav Maravilla [facility] - 07/08/2020 12:49 PM EDT Patient has no PCP under whom to authorize refills. Please approve if appropriate. Thank You, Arnav He [facility] Staff Pharmacist Pharmacy Refill Call Center 07/08/2020, 12:49 PM * Telephone Encounter - Arnav Maravilla [facility] - 07/08/2020 12:48 PM EDT Pending Prescriptions: Disp Refills B-12 1000 MCG Sublingual Tablet Sublingua*30 Tab 11 Sig: PLACE 1,000 MCG UNDER THE TONGUE DAILY Last Office/Telemedicine Visit: No Previous Office/Telemedicine Visits Next Office Visit: No Future Appointments If no future appointments scheduled, and last appointment is greater than a year ago, please schedule patient for a follow-up appointment Last date the medication was ordered: 09/25/19 Pharmacy: [facility] [address] [place], [place] [address]Y[facility] [place] Is this request for a controlled substance?No Urine Drug Screen:No results found for this or any previous visit. Patient Phone Numbers Labs: Lab Results Component Value Date/Time CREAT 1.2 (H) 10/31/2019 10:03 AM POTASSIUM 4.6 10/31/2019 10:03 AM TSH 2.02 05/19/2019 10:59 PM LDLCALC 66 06/03/2019 07:54 AM LDLDIRECT NOT APPLICABLE 06/03/2019 07:54 AM ALT 13 10/31/2019 10:03 AM HGBA1C 6.6 (H) 10/31/2019 10:03 AM documented in this encounter Plan of Treatment Upcoming Encounters Date Type Specialty Care Team Description 07/16/2020 Office Visit Family Medicine Allison Rodrigez PA-C [address] [address] Health Maintenance Due Date Last Done Comments CKD PHOS USE SMARTSET 06166 1962 Zoster Vaccines (1 of 2) 1994 Influenza Vaccine (FLU shot) (#1) 2019 07/15/2019, 02/22/2016, 03/08/2015 CKD GFR USE SMARTSET 12166 05/02/202010/30, 06/03/2019, 05/19/2019, Additional history exists DIABETES-HGBA1C EVERY 6 MONTHS 05/02/2020 10/31/2019, 06/03/2019 CKD HGB USE SMARTSET 40165 05/19/2020 05/19/2019, *DEPRESSION SCREENING,ANNUAL FOR PTS 12 [...] Documents on File Type Date Recorded Patient Cotton Dispatcher 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 Advanced Directive Advanced Directive
--- OUTSIDE RECORDS SUMMARY | 2022-12-17 03:34 | External Medical Summary ---
Author Name Unknown Address Unknown Organization K01:[facility] [place] [facility] [address] [place] [id number] Laboratory Report Ordering Provider Test Date Status NEALTERRANCE 07/16/2020 09:04:43 Final Observation Date Value Abnormality Reference (Units ) Status Albumin, Urine 07/16/2020 09:04:43 6.51 (mg/dL) Final Creatinine [Moles/volume] in Urine 07/16/2020 09:04:43 154 (mg/dL) Final Microalbumin / Creatinine Ratio 07/16/2020 09:04:43 42 Above high normal <30 (mg/g Creat) Final Performing Location [facility] [place] [facility] [address] [place] [id number]
--- OUTSIDE RECORDS SUMMARY | 2022-12-17 03:34 | External Medical Summary | Summary of Care ---
Author Name Unknown [place] [address] Care Team Providers Care Inventory Control Planner Name Role Phone Lizeth Guzman PA-C Primary Care Provi shamir Reason for Visit * Reason Comments Test Results Encounter Details Date Type Department Care Team Description [facility] [facility] [address] [facility] [place] [address] Lizeth Guzman PA-C 21 [facility] [place] [address] Test Results Allergies No Known [...] 90 Tab 3 07/15/2019 Active nystatin (NYSTOP) 455248 UNIT/GM powderIndications:Cut aneous candidiasis Apply topically to [...] inj 1,000 mcgIndications:B12 deficiency 1000 mcg IM [id number] 07/15/2019 06/15/2020 Active documented as of this [...] encounter Miscellaneous Notes * Telephone Encounter - Lizeth Guzman PA-C [...] Nurse Annual Wellness, RN [address] [place] [address] [phone] 02/24/2020 Appointment Radiology 05/04/2020 Office Visit Family Medicine Lizeth Guzman PA-C [address] [place] [address] [phone] 06/15/2020 Appointment Radiology 06/29/2020 Office Visit Urology Jessy Ortiz, Indra Kuhn MD [address] [address] [place] [id number] Scheduled Orders Name Type Priority Associated Diagnoses [...] B-12 10/30/2020 10/31/2019, 06/03/2019 DXA-SCREENING EVERY 7 YRS-US E SMARTSET# [id number] TO ORDER 03/11/2026 03/11/2019 DTaP,Tdap,and Td Vaccines [...] Documents on File Type Date Recorded Patient Distribution Estimator 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 Advanced Directive
--- OUTSIDE RECORDS SUMMARY | 2022-12-17 03:34 | External Medical Summary ---
Author Name Unknown Address [facility] [address] [id number] Phone Organization K01:[place] [id number] Laboratory Report Ordering Provider Test Date Status CIARA BILLINGSLEY 10/31/2019 10:03:00 Final Observation Date Value Abnormality Reference (Units ) Status Vitamin B12 10/31/2019 17:53 >2000 Above high normal 232 -1245 (pg/mL) Final Performing Location [address] [address]
--- OUTSIDE RECORDS SUMMARY | 2022-12-17 03:34 | External Medical Summary | Summary of Care ---
Author Name Unknown [place] [address] Care Team Providers Care Brokerage Branch Manager Name Role Phone Lizeth Guzman PA-C Primary Care Provi shamir Reason for Visit * Reason Comments eRx-Medication Refill Encounter Details Date Type Department Care Team Description 03/12/2020 Refill [facility] [place] [address] Naomi Farfan PA-C [address] [facility] [place] [address] ADRIANA (generalized anxiety disorder) Allergies No Known Active Allergiesdocumented as of this encounter (statuses as of 03/15/2020) Medications Medication Sig Dispensed Refills Start Date [...] 90 Tab 3 07/15/2019 Active nystatin (NYSTOP) 200926 UNIT/GM powderIndications: Cutaneous candidiasis Apply topically to [...] MOUTH TWICE A DAY NEEDED FOR ANXIETY 60 Tab 0 03/15/2020 Active busPIRone (BUSPAR) 10 MG TabletIndications: ADRIANA (generalized anxiety disorder) Take 1 Tab by mouth 2 times a day as needed for Anxiety. 60 Tab 0 07/15/2019 03/15/2020 Discontinued Hospital, Clinic, or Other Facility Administered Medication Ordered Dose Route Frequency Start Date End Date Status vitamin b-12 (CYANOCOBALAMIN) inj 1,000 mcgIndications:B12 deficiency 1000 mcg IM [id number] 07/15/2019 06/15/2020 Active documented as of this encounter (statuses as of 03/15/2020) Active Problems Problem Noted Date Stage 3a [...] as of this encounter (statuses as of 03/15/2020) Resolved Problems Problem Noted Date Resolved Date Kidney disease, chronic, stage III (GFR 30-59 ml /min) 11/24/2019 02/26/2020 Overview: Per CKD protocol COPD (chronic obstructive pu lmonary disease) with chronic bronchitis 05/27/2019 05/27/2019 documented as of this encounter (statuses as of 03/15/2020) Immunizations Name Administration Dates Next Due Pneumococcal [...] encounter Miscellaneous Notes * Telephone Encounter - Reid San PA-C - 03/15/2020 9:29 AM EST Signed Prescriptions: Disp Refills busPIRone HCl 10 MG Oral Tablet (BUSPAR) 60 Tab 0 Sig: TAKE ONE TABLET BY MOUTH TWICE A DAY NEEDED FOR ANXIETY Authorizing Provider: REID SAN * Telephone Encounter - Kenyon Smith LPN - 03/15/2020 8:45 AM EST Pending Prescriptions: Disp Refills busPIRone HCl 10 MG Oral Tablet (BUSPAR) *60 Tab 0 Sig: TAKE ONE TABLET BY MOUTH TWICE A DAY NEEDED FOR ANXIETY * Telephone Encounter - Derrek Wright [facility] - 03/13/2020 3:10 PM EST Pending Prescriptions: Disp Refills busPIRone HCl 10 MG Oral Tablet [Pharmacy *60 Tab 0 Sig: TAKE ONE TABLET BY MOUTH TWICE A DAY NEEDED FOR ANXIETY * Telephone Encounter - Derrek Wright [facility] - 03/13/2020 3:10 PM EST Refill pharmacists currently not authorized to approve refills for this class of medication per refill protocol. Please approve if appropriate. Thanks, Derrek Wright, R.Ph. Clinical Pharmacist [facility] [phone] 03/13/2020,3:10 PM Pending Prescriptions: Disp Refills busPIRone HCl 10 MG Oral Tablet [Pharmacy *60 Tab 0 Sig: TAKE ONE TABLET BY MOUTH TWICE A DAY NEEDED FOR ANXIETY Last Office/Telemedicine Visit: 10/31/2019 Next Office Visit: 05/04/2020 Scheduled Provider(s): Allison Rodrigez PA-C If no future appointments scheduled, and last appointment is greater than a year ago, please schedule patient for a follow-up appointment Last date the medication was ordered: 07/15/19 Pharmacy: [id number] [id number] [facility] [place] Is this request for a controlled substance?No Urine Drug Screen:No results found for this or any previous visit. Patient Phone Numbers Labs: Lab Results Component Value Date/Time CREAT 1.2 (H) 10/31/2019 10:03 AM POTASSIUM 4.6 10/31/2019 10:03 AM TSH 2.02 05/19/2019 10:59 PM LDLCALC 66 06/03/2019 07:54 AM ALT 13 10/31/2019 10:03 AM HGBA1C 6.6 (H) 10/31/2019 10:03 AM documented in this encounter Plan of Treatment Upcoming Encounters Date Type Specialty Care Team Description 05/04/2020 Office Visit Family Medicine Allison Rodrigez PA-C [address] [facility] [address] [place] [phone] 06/15/2020 Appointment Radiology 06/29/2020 Office Visit Urology Jessy Ortiz, Indra Kuhn MD [address] [place] [address] [address] [place] [id number] Health Maintenance Due Date Last Done Comments [...] Documents on File Type Date Recorded Patient National Sales Representative 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 Advanced Directive
--- OUTSIDE RECORDS SUMMARY | 2022-12-17 03:34 | External Medical Summary ---
Author Name Unknown Address Unknown Organization : Laboratory Report Ordering Provider Test Date Status TERRANCE DE JESUS 07/16/2020 08:27:30 Final Observation Date Value Abnormality Reference (Units ) Status HbA1C 07/16/2020 08:27:30 6.7 Above high normal 4. 0-5.6 (%) Final Performing Location
--- OUTSIDE RECORDS SUMMARY | 2022-12-17 03:34 | External Medical Summary ---
Author Name Unknown Address [facility] [address] [place] [id number] Phone Organization K01:[place] [address] [address] [place] [id number] Laboratory Report Ordering Provider Test Date Status CIARA BILLINGSLEY 10/31/2019 10:03:00 Final Observation Date Value Abnormality Reference (Units ) Status PTH-Intact [facility] 10/31/2019 17:53 84 Above high normal 15-65 (pg/mL) Final Performing Location [address] [address]
--- OUTSIDE RECORDS SUMMARY | 2022-12-17 03:34 | External Medical Summary ---
Author Name Unknown Address [facility] [place] [address] Phone Organization K01:[place] [id number] Laboratory Report Ordering Provider Test Date Status JOSE CRUZCIARA 10/31/2019 10:03:00 Final Observation Date Value Abnormality Reference (Units ) Status HbA1C 10/31/2019 18:14 6.6 Above high normal 4.0-5 .6 (%) Final Performing Location [place] [id number]
--- OUTSIDE RECORDS SUMMARY | 2022-12-17 03:34 | External Medical Summary | Summary of Care ---
Author Name Unknown Organization [facility] [place] [address] Care Team Providers Care Paste Mixer Name Role Phone Unavailable Primary Care Provider Unavailabl e Reason for Visit * Reason Onset Date Comments Medication Refill 04/21/2020 Encounter Details Date Type Department Care Team Description 04/21/2020 Refill [facility] [address] [place] [address] Allison Rodrigez PA-C [address] [place] [address] Type 2 diabetes mellitus with stage 3a chronic kidney disease, without long-term current use of insulin ([facility])*; ADRIANA (generalized anxiety disorder) Allergies No Known Active Allergiesdocumented as of this encounter (statuses as of 04/21/2020) Medications Medication Sig Dispensed Refills Start Date [...] goal of less than 7.0% ([facility]) Take 1 Tab by mouth daily. 30 Tab 11 06/14/2019 Active atorvaSTATin (LIPITOR) 80 MG TabletIndications: Dyslipidemia, goal LDL below 100 Take 1 Tab by mouth at bedtime. 90 Tab 3 07/15/2019 Active nystatin (NYSTOP) 092539 UNIT/GM powderIndications: Cutaneous candidiasis Apply topically to [...] evening meals. 180 Tab 0 04/21/2020 Active MetFORMIN (GLUCOPHAGE) 1000 MG Tablet Take 1,000 mg by mouth 2 times a day with morning and evening meals. 0 04/21/2020 Discontinued (Refill) busPIRone HCl 10 MG Oral Tablet (BUSPAR)Indication s:ADRIANA (generalized anxiety disorder) TAKE ONE TABLET BY MOUTH TWICE A DAY NEEDED FOR ANXIETY 60 Tab 0 03/15/2020 04/21/2020 Discontinued (Refill) Hospital, Clinic, or Other Facility Administered Medication Ordered Dose Route Frequency Start Date End Date Status vitamin b-12 (CYANOCOBALAMIN) inj 1,000 mcgIndications:B12 deficiency 1000 mcg IM [id number] 07/15/2019 06/15/2020 Active documented as of this encounter (statuses as of 04/21/2020) Active Problems Problem Noted Date Stage 3a [...] as of this encounter (statuses as of 04/21/2020) Resolved Problems Problem Noted Date Resolved Date Kidney disease, chronic, stage III (GFR 30-59 ml /min) 11/24/2019 02/26/2020 Overview: Per CKD protocol COPD (chronic obstructive pu lmonary disease) with chronic bronchitis 05/27/2019 05/27/2019 documented as of this encounter (statuses as of 04/21/2020) Immunizations Name Administration Dates Next Due Pneumococcal [...] encounter Miscellaneous Notes * Telephone Encounter - Rip Dick MD - 04/21/2020 4:39 PM EST Signed Prescriptions: Disp Refills busPIRone HCl 10 MG Oral Tablet (BUSPAR) 180 Tab0 Sig: TAKE ONE TABLET BY MOUTH TWICE A DAY NEEDED FOR ANXIETYAuthorizing Provider: RIP DICK metFORMIN HCl 1000 MG Oral Tablet (GLUCOPH*180 Tab0 Sig: Take 1 Tab by mouth 2 times a day with morning and evening meals.Authorizing Provider: RIP DICK * Telephone Encounter - Rip Dick MD - 04/21/2020 4:39 PM EST Signed Prescriptions: Disp Refills busPIRone HCl 10 MG Oral Tablet (BUSPAR) 180 Tab0 Sig: TAKE ONE TABLET BY MOUTH TWICE A DAY NEEDED FOR ANXIETYAuthorizing Provider: RIP DICK metFORMIN HCl 1000 MG Oral Tablet (GLUCOPH*180 Tab0 Sig: Take 1 Tab by mouth 2 times a day with morning and evening meals.Authorizing Provider: RIP DICK * Telephone Encounter - Cha Nolan MED ASSIST - 04/21/2020 2:38 PM EST No prescriptions requested or ordered in this encounter Last Office/Telemedicine Visit: 10/31/2019 Next Office Visit: 05/04/2020 Scheduled Provider(s): Allison Rodrigez PA-C Last date the medication was ordered: 03/15/2020 Patient Active Problem List Diagnosis Code Type 2 diabetes mellitus with hemoglobin A1c goal of less than 7.0% (HCC) E11.9 Dyslipidemia, goal LDL below 100 E78.5 ADRIANA (generalized anxiety disorder) F41.1 S/P aortic valve replacement Z95.2 Right renal mass N28.89 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 Secondary hyperparathyroidism, non-renal (HCC) E21.1 B12 deficiency E53.8 Stage 3a chronic kidney disease N18.31 Labs: CREATININE(mg/dL) Madeline Dt/Tm Resulted Value Status 10/31/19 10:03A 10/31/19 1.2* FINAL POTASSIUM(mmol/L) Madeline Dt/Tm Resulted Value Status 10/31/19 10:03A 10/31/19 4.6 FINAL TSH(uIU/mL) Madeline Dt/Tm Resulted Value Status 05/19/19 10:59P 05/19/19 2.02 FINAL LDL (CALCULATED)(mg/dL) Madeline Dt/Tm Resulted Value Status 06/03/19 7:54A 06/03/19 66 FINAL LDL DIRECT(REFLEX)(mg/dL) Madeline Dt/Tm Resulted Value Status 06/03/19 7:54A 06/03/19 FINAL Value: NOT APPLICABLE ALT(U/L) Madeline Dt/Tm Resulted Value Status 10/31/19 10:03A 10/31/19 13 FINAL Hemoglobin AIC Results: HEMOGLOBIN, A1C(%) Madeline Dt/Tm Resulted Value Status 10/31/19 10:03A 10/31/19 6.6* FINAL 06/03/19 7:54A 06/03/19 7.4* FINAL documented in this encounter Plan of Treatment Upcoming Encounters Date Type Specialty Care Team Description 05/04/2020 Office Visit Family Medicine Allison Rodrigez PA-C [address] [place] [phone] 06/15/2020 Appointment Radiology 06/29/2020 Office Visit Urology Indra Jiménez Jr., MD [address] [place] [address] [address] [address] Health Maintenance Due Date Last Done Comments CKD PHOS USE SMARTSET 00916 1962 Zoster Vaccines (1 of 2) 1994 Influenza Vaccine (FLU shot) (#1) 2019 07/15/2019, 02/22/2016, 03/08/2015 CKD GFR USE SMARTSET 39961 05/02/202010/30, 06/03/2019, 05/19/2019, Additional history exists DIABETES-HGBA1C EVERY 6 MONTHS 05/02/2020 10/31/2019, 06/03/2019 CKD HGB USE SMARTSET 36128 05/19/2020 05/19/2019, DIABETES-URINE MICROALBUMIN EVERY 12 MONTHS [...] disease, without long-term current use of insulin ([facility])- Primary ADRIANA (generalized anxiety disorder) Generalized anxiety disorder documented in this encounter Advance Directives Documents on File Type Date Recorded Patient Open Shank Coverer 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 Advanced Directive
--- OUTSIDE RECORDS SUMMARY | 2022-12-17 03:34 | External Medical Summary | Summary of Care ---
Author Name Unknown [place] [address] Care Team Providers Care Riding Coach Name Role Phone Lizeth Guzman PA-C Primary Care Provi shamir Reason for Visit * Reason Comments Medication Refill 09/25, 09/28, 09/30 Medication Refill Encounter Details Date Type Department Care Team Description 09/25/2019 Telephone [facility] Thee Jones [address] [place] [address] Naomi Farfan PA-C 21 [facility] [address] [place] [address] Medication Refill (09/25, 09/28, 09/30); Medi... Allergies No Known Allergiesdocumented as of this encounter (statuses as of 10/02/2019) Medications Medication Sig Dispensed Refills Start Date [...] 90 Tab 3 07/15/2019 Active nystatin (NYSTOP) 501585 UNIT/GM powderIndications: Cutaneous candidiasis Apply topically to [...] inj 1,000 mcgIndications:B12 deficiency 1000 mcg IM [id number] 07/15/2019 06/15/2020 Active documented as of this encounter (statuses as of 10/02/2019) Active Problems Problem Noted Date Type 2 [...] as of this encounter (statuses as of 10/02/2019) Resolved Problems Problem Noted Date Resolved Date COPD (chronic obstructive pu lmonary disease) with chronic bronchitis 05/27/2019 05/27/2019 documented as of this encounter (statuses as of 10/02/2019) Immunizations Name Administration Dates Next Due Pneumococcal [...] encounter Miscellaneous Notes * Telephone Encounter - Nilsa José LPN - 10/02/2019 9:45 AM EDT contact letter sent * Telephone Encounter - Ashlie Macias LPN [...] Medicine Lizeth Guzman PA-C [address] [phone] 02/24/2020 Appointment Radiology 06/15/2020 Appointment Radiology 06/29/2020 Office Visit Urology Jessy Ortiz, Indra Kuhn MD [address] [place] [address] [address] [place] [address] Health Maintenance Due Date Last Done Comments Zoster Vaccines (1 of 2) 1994 DIABETES-HGBA1C EVERY 6 MONTHS 12/02/2019 06/03/2019 Yearly B-12 06/03/2020 06/03/2019 DIABETES-URINE MICROALBUMIN EVERY 12 MONTHS 06/06/2020 06/06/2019 DIABETES-EYE EXAM 06/29/2020 06/30/2019 DIABETES-FOOT EXAM 07/14/2020 07/15/2019 DXA-SCREENING EVERY 7 YRS-US E SMARTSET# [id number] TO ORDER 03/11/2026 03/11/2019 DTaP,Tdap,and Td Vaccines [...] Documents on File Type Date Recorded Patient Obstetrician Gynecologist 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 Advanced Directive
--- OUTSIDE RECORDS SUMMARY | 2022-12-17 03:34 | External Medical Summary | Summary of Care ---
Author Name Unknown Organization [place] [address] Care Team Providers Care Music Pastor Name Role Phone Unavailable Primary Care Provider Unavailabl e Reason for Visit * Reason Onset Date Comments MyCode - Took Form To Consider 07/16/2020 Encounter Details Date Type Department Care Team Description 07/16/2020 Orders Only Outcomes Research Department [address] [place] [address] Tayla Kirkland CHRA MyCode Nonconsent Documentation Allergies No Known Active Allergiesdocumented as of [...] A1c goal of less than 7.0% ([facility]) Take 1 Tab by mouth daily. 30 Tab 11 06/14/2019 Active Additional Information Patient not taking. Reported on 07/16/2020 atorvaSTATin (LIPITOR) 80 MG TabletIndications:Dy slipidemia, goal LDL below 100 Take 1 Tab by mouth at bedtime. 90 Tab 3 07/15/2019 Active nystatin (NYSTOP) 909536 UNIT/GM powderIndications:Cu taneous candidiasis Apply topically to affected area 3 times a day. 15 g 0 07/15/2019 Active vitamin b-12 (CYANOCOBALAMIN) 1000 MCG/ML injectionIndications :B12 deficiency Inject 1,000 mcg as directed every 30 days. 1 mL 11 07/15/2019 Active citalopram (CELEXA) 20 MG Tablet Take 1 Tab by mouth daily. 30 Tab 0 09/26/2019 Active busPIRone HCl 10 MG Oral Tablet (BUSPAR)Indications: ADRIANA (generalized anxiety disorder) TAKE ONE TABLET BY MOUTH TWICE A DAY NEEDED FOR ANXIETY 180 Tab 0 04/21/2020 Active metFORMIN HCl 1000 MG Oral Tablet (GLUCOPHAGE)Indicati ons:Type 2 diabetes mellitus with stage 3a chronic kidney disease, without long-term current use of insulin (HCC) Take 1 Tab by mouth 2 times a day with morning and evening meals. 180 Tab 0 04/21/2020 Active B-12 1000 MCG Sublingual Tablet Sublingual PLACE 1,000 MCG UNDER THE TONGUE DAILY 30 Tab 11 07/09/2020 Active documented as of this encounter (statuses as of 07/16/2020) Active Problems Problem Noted Date Stage 3a [...] on file documented as of this encounter Progress Notes * Tayla Kirkland CHRA - 07/16/2020 8:30 AM EDT Lookbackode Nonconsent Documentation Sahra Rodríguez was approached in the clinic regarding participation in the [employer] and did not consent. documented in this encounter Plan of Treatment Health Maintenance Due Date Last Done Comments CKD PHOS USE SMARTSET 58893 1963 Zoster Vaccines (1 of 2) 1994 Influenza Vaccine (FLU shot) (#1) 2019 07/15/2019, 02/22/2016, 03/08/2015 CKD GFR USE SMARTSET 14385 05/02/202010/30, 06/03/2019, 05/19/2019, Additional history exists CKD HGB USE SMARTSET 65200 05/19/2020 05/19/2019, *DEPRESSION SCREENING,ANNUAL FOR PTS 12 AND OVER 05/30/2020 DIABETES-URINE MICROALBUMIN EVERY 12 MONTHS 06/06/2020 06/06/2019 DIABETES-EYE EXAM 06/29/2020 07/16/2020, 06/30/2019 Yearly B-12 10/30/2020 10/31/2019, 06/03/2019 DIABETES-HGBA1C EVERY 6 MONTHS 01/15/2021 07/16/2020, 10/31/2019, 06/03/2019 DIABETES-FOOT EXAM 07/16/2021 07/16/2020, 07/15/2019 Dexa Scan 03/11/2026 03/11/2019 DTaP,Tdap,and Td Vaccines (3 - Td) 03/09/2027 03/09/2017, 03/24/2009 Pneumococcal Vaccine: 65+ Years Completed 05/27/2019, 03/08/2015, 06/30/2014 MENINGOCOCCAL (MENACTRA/MENVEO) Aged Out No longer eligible based on patient's age to complete this topic documented as of this encounter Implants Not on filedocumented as of this encounter Advance Directives Documents on File Type Date Recorded Patient Physical Therapist Center Manager 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 Advanced Directive Advanced Directive
--- OUTSIDE RECORDS SUMMARY | 2022-12-17 03:35 | External Medical Summary | Summary of Care ---
Author Name Unknown [place] [address] Care Team Providers Care Animal Trapper Name Role Phone Naomi Farfan PA-C Primary Care Prov ider Reason for Visit * Reason Comments Follow Up 07/21, 07/22 Encounter Details Date Type Department Care Team Description [facility]/21/2019 [facility] [address] [place] [address] Lizeth Guzman PA-C [facility] [place] [place] [address] Follow Up (07/21, 07/22) Allergies No Known Allergiesdocumented as of this encounter (statuses as of 07/23/2019) Medications Medication Sig Dispensed Refills Start Date End Date Status aspirin enteric coated 81 MG TBEC Take 1 Tab by mouth daily. 0 Active omeprazole (PRILOSEC) 20 MG CPDR Take 1 Cap by mouth daily. 0 Active metoprolol tartrate (LOPRESSOR) 25 MG Tablet Take 12.5 mg by mouth 2 times a day. 0 Active citalopram (CELEXA) 20 MG Tablet Take 1 Tab by mouth daily. 0 05/26/2019 Active clonazePAM (KLONOPIN) 0.5 MG Tablet Take 1 Tab by mouth at bedtime. 0 05/26/2019 Active MetFORMIN (GLUCOPHAGE) 1000 MG Tablet Take 1,000 mg by mouth 2 times a day with morning and evening meals. 0 Active Cholecalciferol (VITAMIN D3) 1.25 MG (03545 UT) CapsuleIndications:S econdary hyperparathyroidism, non-renal (HCC) Take 1 Cap by mouth once a week for 90 days. 12 Cap 0 06/14/2019 09/12/2019 Active empagliflozin (JARDIANCE) 10 MG TABSIndications:Type 2 diabetes mellitus with hemoglobin A1c goal of less than 7.0% (HCC) Take 1 Tab by mouth daily. 30 Tab 11 06/14/2019 Active busPIRone (BUSPAR) 10 MG TabletIndications:GA D (generalized anxiety disorder) Take 1 Tab by mouth 2 times a day as needed for Anxiety. 60 Tab 0 07/15/2019 Active atorvaSTATin (LIPITOR) 80 MG TabletIndications:Dy slipidemia, goal LDL below 100 Take 1 Tab by mouth at bedtime. 90 Tab 3 07/15/2019 Active nystatin (NYSTOP) 464489 UNIT/GM powderIndications:Cu taneous candidiasis Apply topically to affected area 3 times a day. 15 g 0 07/15/2019 Active vitamin b-12 (CYANOCOBALAMIN) 1000 MCG/ML injectionIndications :B12 deficiency Inject 1,000 mcg as directed every 30 days. 1 mL 11 07/15/2019 Active Hospital, Clinic, or Other Facility Administered Medication Ordered Dose Route Frequency Start Date End Date Status vitamin b-12 (CYANOCOBALAMIN) inj 1,000 mcgIndications:B12 deficiency 1000 mcg IM [id number] 07/15/2019 06/15/2020 Active documented as of this encounter (statuses as of 07/23/2019) Active Problems Problem Noted Date Type 2 [...] as of this encounter (statuses as of 07/23/2019) Resolved Problems Problem Noted Date Resolved Date COPD (chronic obstructive pu lmonary disease) with chronic bronchitis 05/27/2019 05/27/2019 documented as of this encounter (statuses as of 07/23/2019) Immunizations Name Administration Dates Next Due Pneumococcal [...] file Travel History Travel Start Travel End documented as of this encounter Miscellaneous Notes * Telephone Encounter - Nilsa José LPN - 07/23/2019 12:39 PM EDT No answer at patient's home number. No machine available. * Telephone Encounter - Ashlie Macias LPN - 07/22/2019 2:19 PM EDT Voice mailbox not set up, unable to let msg * Telephone Encounter - Lizeth Guzman PA-C - 07/21/2019 10:31 AM EDT Please contact pt to see if breast rash improved since visit. documented in this encounter Plan of Treatment Upcoming Encounters Date Type Specialty Care Team Description 08/14/2019 Nurse Only Ancillary Nurse Annie Kingston [address] [place] [address] [phone] 10/06/2019 Appointment Radiology 10/16/2019 Office Visit Family Medicine Lizeth Guzman PA-C [address] [place] [phone] 06/15/2020 Appointment Radiology 06/29/2020 Office Visit Urology Jessy Ortiz, Indra Kuhn MD [address] [address] [address] [place] [phone] Health Maintenance Due Date Last Done Comments Zoster Vaccines (1 of 2) 1994 DIABETES-HGBA1C EVERY 6 MONTHS 12/02/2019 06/03/2019 Yearly B-12 06/03/2020 06/03/2019 DIABETES-URINE MICROALBUMIN EVERY 12 MONTHS 06/06/2020 06/06/2019 DIABETES-EYE EXAM 06/29/2020 06/30/2019 DIABETES-FOOT EXAM 07/14/2020 07/15/2019 DXA-SCREENING EVERY 7 YRS- E SMARTSET# [id number] TO ORDER 03/11/2026 03/11/2019 [...] Documents on File Type Date Recorded Patient Mri Specialist 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 Advanced Directive
--- OUTSIDE RECORDS SUMMARY | 2022-12-17 03:35 | External Medical Summary | Summary of Care ---
Author Name Unknown [place] [address] Care Team Providers Care Food Crops Farm Hand Name Role Phone Naomi Farfan PA-C Primary Care Prov ider Reason for Visit * Reason Comments Follow Up 07/21, 07/22, 07/24 Encounter Details Date Type Department Care Team Description 07/[facility]/[address] [facility] [place] [address] Lizeth Guzman PA-C 21 [facility] [place] [address] Follow Up (07/21, 07/22, 07/24) Allergies No Known Allergiesdocumented as of this encounter (statuses as of 07/25/2019) Medications Medication Sig Dispensed Refills Start Date [...] 0 Active Cholecalciferol (VITAMIN D3) 1.25 MG (12052 UT) CapsuleIndications:S econdary hyperparathyroidism, non-renal (HCC) Take [...] 90 Tab 3 07/15/2019 Active nystatin (NYSTOP) 343871 UNIT/GM powderIndications:Cu taneous candidiasis Apply topically to [...] inj 1,000 mcgIndications:B12 deficiency 1000 mcg IM [id number] 07/15/2019 06/15/2020 Active documented as of this encounter (statuses as of 07/25/2019) Active Problems Problem Noted Date Type 2 [...] as of this encounter (statuses as of 07/25/2019) Resolved Problems Problem Noted Date Resolved Date COPD (chronic obstructive pu lmonary disease) with chronic bronchitis 05/27/2019 05/27/2019 documented as of this encounter (statuses as of 07/25/2019) Immunizations Name Administration Dates Next Due Pneumococcal [...] encounter Miscellaneous Notes * Telephone Encounter - Maggy Lu, MANDY - 07/25/2019 4:33 PM EDT Patient returning call. Patient states that the rash on her breast is completely gone. ALSO Patient states that she has been taking her blood sugar for 2 weeks. Patient states that her blood sugar was up to 146 yesterday morning. Patient states that she did not eat anything before she went to bed the night before and she checked her sugar before she at yogurt that morning. Patient states that it was 146 after she ate the yogurt. Patient states that one day it was 222. Patient state that usually her blood sugar is 106-109. Patient asking what her blood sugar is supposed to be. Please advise and return call to patient. * Telephone Encounter - Ashlie Macias LPN - 07/25/2019 3:13 PM EDT Voice mailbox not set up, unable to let msg Let msg with pt's emerg cont to have pt call us back * Telephone Encounter - Nilsa José LPN [...] Ancillary Nurse Annie Kingston 21 [place] [id number] 10/06/2019 Appointment Radiology 10/16/2019 Office Visit Family Medicine Lizeth Guzman PA-C 21 [place] [address] [phone] 06/15/2020 Appointment Radiology 06/29/2020 Office Visit Urology Jessy Ortiz, Indra Kuhn MD [address] [place] [address] [place] [id number] Health Maintenance Due Date Last Done Comments [...] Documents on File Type Date Recorded 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
--- OUTSIDE RECORDS SUMMARY | 2022-12-17 03:35 | External Medical Summary | Summary of Care ---
Author Name Unknown [place] [address] Care Team Providers Care General Foreman Name Role Phone Naomi Farfan PA-C Primary Care Prov ider Reason for Visit * Reason Comments Follow Up 07/21, 07/22, 07/24 Encounter Details Date Type Department Care Team Description 07/21/2019 [facility] [place] [address] Lizeth Guzman PA-C 21 [facility] [place] [address] Follow Up (07/21, [...] 0 Active Cholecalciferol (VITAMIN D3) 1.25 MG (72142 UT) CapsuleIndications:S econdary hyperparathyroidism, non-renal (HCC) Take [...] 90 Tab 3 07/15/2019 Active nystatin (NYSTOP) 561768 UNIT/GM powderIndications:Cu taneous candidiasis Apply topically to [...] inj 1,000 mcgIndications:B12 deficiency 1000 mcg IM [id number] 07/15/2019 06/15/2020 Active documented as of this [...] Ancillary Nurse Annie Kingston [address] [place] [address] 10/06/2019 Appointment Radiology 10/16/2019 Office Visit Family Medicine Lizeth Guzman PA-C [address] [place] [address] 06/15/2020 Appointment Radiology 06/29/2020 Office Visit Urology Indra Jiménez Jr., MD [address] [place] [address] [place] [address] Health Maintenance Due Date Last Done [...] Documents on File Type Date Recorded Patient Diaper Machine Tender 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 Advanced Directive
--- OUTSIDE RECORDS SUMMARY | 2022-12-17 03:35 | External Medical Summary | Summary of Care ---
Author Name Unknown Organization [place] [address] Care Team Providers Care Soils Analyst Name Role Phone Naomi Farfan PA-C Primary Care Prov ider Reason for Visit * Reason Comments Follow Up Encounter Details Date Type Department Care Team Description 07/21/2019 Telephone [facility] Thee Jones 21 [place] [address] Lizeth Guzman PA-C 21 [facility] [place] [address] Follow Up Allergies No Known Allergiesdocumented as of this encounter (statuses as of 07/21/2019) Medications Medication Sig Dispensed Refills Start Date [...] 0 Active Cholecalciferol (VITAMIN D3) 1.25 MG (73141 UT) CapsuleIndications:S econdary hyperparathyroidism, non-renal (HCC) Take [...] 90 Tab 3 07/15/2019 Active nystatin (NYSTOP) 387373 UNIT/GM powderIndications:Cu taneous candidiasis Apply topically to [...] inj 1,000 mcgIndications:B12 deficiency 1000 mcg IM [id number] 07/15/2019 06/15/2020 Active documented as of this encounter (statuses as of 07/21/2019) Active Problems Problem Noted Date Type 2 [...] as of this encounter (statuses as of 07/21/2019) Resolved Problems Problem Noted Date Resolved Date COPD (chronic obstructive pu lmonary disease) with chronic bronchitis 05/27/2019 05/27/2019 documented as of this encounter (statuses as of 07/21/2019) Immunizations Name Administration Dates Next Due Pneumococcal [...] 08/14/2019 Nurse Only Ancillary Nurse Annie Kingston [place] [address] 10/06/2019 Appointment Radiology 10/16/2019 Office Visit Family Medicine Lizeth Guzman PA-C [place] [address] 06/15/2020 Appointment Radiology 06/29/2020 Office Visit Urology Jessy Ortiz, Indra Kuhn [place] [address] [place] [address] Health Maintenance Due Date Last Done Comments Zoster Vaccines (1 of 2) 1994 DIABETES-HGBA1C EVERY 6 MONTHS 12/02/2019 06/03/2019 Yearly B-12 06/03/2020 06/03/2019 DIABETES-URINE MICROALBUMIN EVERY 12 MONTHS 06/06/2020 06/06/2019 DIABETES-EYE EXAM 06/29/2020 06/30/2019 DIABETES-FOOT EXAM 07/14/2020 07/15/2019 DXA-SCREENING EVERY 7 YRS- E SMARTSET# [id number] TO ORDER 03/11/2026 03/11/2019 DTaP,Tdap,and Td Vaccines [...] Documents on File Type Date Recorded Patient Pulmonary Specialist 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 Advanced Directive
--- OUTSIDE RECORDS SUMMARY | 2022-12-17 03:35 | External Medical Summary | Summary of Care ---
Author Name Unknown Organization [facility] [place] [address] Care Team Providers Care Cement Sprayer Helper Name Role Phone Naomi Farfan PA-C Primary Care Prov ider Reason for Visit * Reason Comments Other Care Gaps Outreach Encounter Details Date Type Department Care Team Description 08/12/2019 Telephone [facility] Thee Jones 21 [facility] [place] [address] Naomi Farfan PA-C 21 [facility] [place] [address] Other (Care Gaps Outreach) Allergies No Known Allergiesdocumented as of this encounter (statuses as of 08/12/2019) Medications Medication Sig Dispensed Refills Start Date [...] 0 Active Cholecalciferol (VITAMIN D3) 1.25 MG (70322 UT) CapsuleIndications:S econdary hyperparathyroidism, non-renal (HCC) Take [...] 90 Tab 3 07/15/2019 Active nystatin (NYSTOP) 505060 UNIT/GM powderIndications:Cu taneous candidiasis Apply topically to [...] inj 1,000 mcgIndications:B12 deficiency 1000 mcg IM [id number] 07/15/2019 06/15/2020 Active documented as of this encounter (statuses as of 08/12/2019) Active Problems Problem Noted Date Type 2 [...] as of this encounter (statuses as of 08/12/2019) Resolved Problems Problem Noted Date Resolved Date COPD (chronic obstructive pu lmonary disease) with chronic bronchitis 05/27/2019 05/27/2019 documented as of this encounter (statuses as of 08/12/2019) Immunizations Name Administration Dates Next Due Pneumococcal [...] have Coronavirus / COVID-19? No / Unsure 07/15/2019 7:50 AM EDT documented as of this encounter Miscellaneous Notes * Telephone Encounter - Marsha Wong LPN - 08/12/2019 10:18 AM EDT Patient contacted for Considerate Care outreach. Unable to reach - no vm documented in this encounter Plan of Treatment Upcoming Encounters Date Type Specialty Care Team Description 08/14/2019 Nurse Only Ancillary Nurse Annie Patton [address] [place] [address] 10/06/2019 Appointment Radiology 10/16/2019 Office Visit Family Medicine Lizeth Guzman PA-C 21 [place] [id number] 06/15/2020 Appointment Radiology 06/29/2020 Office Visit Urology Indra Jiménez Jr., MD [address] [place] [id number] Health Maintenance Due Date Last Done Comments [...] Documents on File Type Date Recorded Patient Living Specialist 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 Advanced Directive
--- OUTSIDE RECORDS SUMMARY | 2022-12-17 03:35 | External Medical Summary | Summary of Care ---
Author Name Unknown Organization [place] [address] Care Team Providers Care Case Management Specialist Name Role Phone Naomi Farfan PA-C Primary Care Prov ider Reason for Visit * Reason Comments Follow Up 07/21, 07/22, 07/24 Encounter Details Date Type Department Care Team Description 07/[facility]/[address] [facility] [place] [address] Lizeth Guzman PA-C 21 [facility] [place] [address] Follow Up (07/21, [...] 0 Active Cholecalciferol (VITAMIN D3) 1.25 MG (75886 UT) CapsuleIndications:S econdary hyperparathyroidism, non-renal (HCC) Take [...] 90 Tab 3 07/15/2019 Active nystatin (NYSTOP) 717934 UNIT/GM powderIndications:Cu taneous candidiasis Apply topically to [...] inj 1,000 mcgIndications:B12 deficiency 1000 mcg IM [id number] 07/15/2019 06/15/2020 Active documented as of this [...] Ancillary Nurse Annie Kingston 21 [place] [id number] 10/06/2019 Appointment Radiology 10/16/2019 Office Visit Family Medicine Lizeth Guzman PA-C [address] [place] [address] [phone] 06/15/2020 Appointment Radiology 06/29/2020 Office Visit Urology Jessy Ortiz, Indra Kuhn MD [address] [place] [address] [place] [phone] Health Maintenance Due Date Last Done Comments [...] Documents on File Type Date Recorded Patient Welfare Director 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 Advanced Directive
--- OUTSIDE RECORDS SUMMARY | 2022-12-17 03:35 | External Medical Summary | Summary of Care ---
Author Name Unknown [place] [address] Care Team Providers Care Quality Nurse Name Role Phone Naomi Farfan PA-C Primary Care Prov ider Reason for Visit * Reason Comments Follow Up 07/21 Encounter Details Date Type Department Care Team Description 07/21/2019 Telephone [facility] Thee Jones 21 eric [place] [address] Lizeth Guzman PA-C 21 [facility] [place] [address] Follow Up (07/21) Allergies No Known Allergiesdocumented as of this [...] 0 Active Cholecalciferol (VITAMIN D3) 1.25 MG (03797 UT) CapsuleIndications:S econdary hyperparathyroidism, non-renal (HCC) Take [...] 90 Tab 3 07/15/2019 Active nystatin (NYSTOP) 776867 UNIT/GM powderIndications:Cu taneous candidiasis Apply topically to [...] inj 1,000 mcgIndications:B12 deficiency 1000 mcg IM [id number] 07/15/2019 06/15/2020 Active documented as of this [...] Visit Urology Indra Jiménez Jr., MD [address] [place] [address] [place] [address] Health Maintenance Due Date [...] Documents on File Type Date Recorded Patient Prototype Carpenter 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 Advanced Directive
--- OUTSIDE RECORDS SUMMARY | 2022-12-17 03:35 | External Medical Summary | Summary of Care ---
Author Name Unknown Organization [facility] [place] [address] Care Team Providers Care Title Closer Name Role Phone Lizeth Guzman PA-C Primary Care Provi shamir Reason for Visit * Reason Comments Medication Refill 09/25, 09/28 Medication Refill Encounter Details Date Type Department Care Team Description 09/25/2019 Telephone [facility] Rylee Joneswn 21 [facility] [place] [address] Naomi Farfan PA-C 21 [facility] [place] [address] Medication Refill (09/25, 09/28); Medication... Allergies No Known Allergiesdocumented as of this encounter (statuses as of 09/29/2019) Medications Medication Sig Dispensed Refills Start Date [...] 90 Tab 3 07/15/2019 Active nystatin (NYSTOP) 842556 UNIT/GM powderIndications: Cutaneous candidiasis Apply topically to [...] inj 1,000 mcgIndications:B12 deficiency 1000 mcg IM [id number] 07/15/2019 06/15/2020 Active documented as of this encounter (statuses as of 09/29/2019) Active Problems Problem Noted Date Type 2 [...] as of this encounter (statuses as of 09/29/2019) Resolved Problems Problem Noted Date Resolved Date COPD (chronic obstructive pu lmonary disease) with chronic bronchitis 05/27/2019 05/27/2019 documented as of this encounter (statuses as of 09/29/2019) Immunizations Name Administration Dates Next Due Pneumococcal [...] PM EDT Pt has follow up with SAVANANH Guzman Will forward refill encounter for review * Telephone Encounter - Waleska Elizabeth, office machines sales representative - 09/25/2019 2:29 PM EDT Medication(s) is/are [...] Medicine Lizeth Guzman PA-C 21 [place] [id number] 02/24/2020 Appointment Radiology 06/15/2020 Appointment Radiology 06/29/2020 Office Visit Urology Indra Jiménez Jr., MD [address] [place] [address] [place] [address] Health Maintenance Due Date [...] Documents on File Type Date Recorded Patient Outreach Analyst 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 Advanced Directive
--- OUTSIDE RECORDS SUMMARY | 2022-12-17 03:35 | External Medical Summary | Summary of Care ---
Author Name Unknown Organization [facility] [place] [address] Care Team Providers Care Kitchen Chef Name Role Phone Lizeth Guzman PA-C Primary Care Provi shamir Reason for Visit * Reason Comments Medication Refill 09/25, 09/28 Medication Refill Encounter Details Date Type Department Care Team Description 09/25/2019 Telephone [facility] Rylee Joneswn 21 [facility] [place] [address] Naomi Farfan PA-C 21 [facility] [place] [address] Medication Refill (09/25, [...] 90 Tab 3 07/15/2019 Active nystatin (NYSTOP) 198298 UNIT/GM powderIndications: Cutaneous candidiasis Apply topically to [...] inj 1,000 mcgIndications:B12 deficiency 1000 mcg IM [id number] 07/15/2019 06/15/2020 Active documented as of this [...] review * Telephone Encounter - Waleska Elizabeth, co founder and ceo - 09/25/2019 2:29 PM EDT Medication(s) is/are [...] Medicine Lizeth Guzman PA-C 21 [place] [phone] 02/24/2020 Appointment Radiology 06/15/2020 Appointment Radiology 06/29/2020 Office Visit Urology Indra Jiménez Jr., MD [address] [place] [address] [place] [address] Health Maintenance Due Date [...] Documents on File Type Date Recorded Patient Marketing Operations Intern 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 Advanced Directive
--- OUTSIDE RECORDS SUMMARY | 2022-12-17 03:35 | External Medical Summary | Summary of Care ---
Author Name Unknown Organization [facility] [place] [address] Care Team Providers Care Neurosurgery Physician Name Role Phone Naomi Farfan PA-C Primary Care Prov ider Reason for Visit * Reason Comments Follow Up 07/21, 07/22, 07/24 Encounter Details Date Type Department Care Team Description 07/21/2019 [facility]phone [facility] 21 [facility] [place] [address] Lizeth Guzman PA-C 21 [facility] [place] [address] Follow Up (07/21, 07/22, 07/24) Allergies No Known Allergiesdocumented as of this encounter (statuses as of 07/28/2019) Medications Medication Sig Dispensed Refills Start Date [...] 0 Active Cholecalciferol (VITAMIN D3) 1.25 MG (67522 UT) CapsuleIndications:S econdary hyperparathyroidism, non-renal (HCC) Take [...] 90 Tab 3 07/15/2019 Active nystatin (NYSTOP) 496312 UNIT/GM powderIndications:Cu taneous candidiasis Apply topically to [...] inj 1,000 mcgIndications:B12 deficiency 1000 mcg IM [id number] 07/15/2019 06/15/2020 Active documented as of this encounter (statuses as of 07/28/2019) Active Problems Problem Noted Date Type 2 [...] as of this encounter (statuses as of 07/28/2019) Resolved Problems Problem Noted Date Resolved Date COPD (chronic obstructive pu lmonary disease) with chronic bronchitis 05/27/2019 05/27/2019 documented as of this encounter (statuses as of 07/28/2019) Immunizations Name Administration Dates Next Due Pneumococcal [...] encounter Miscellaneous Notes * Telephone Encounter - Reji Alfaro MD - 07/28/2019 9:53 AM EDT Generally, we issue for fasting blood sugar 90-110. It sounds like her blood sugars are generally well controlled. Happy in her case with an A1c of less than 7.5. I do not think any changes are needed at this point. We can recheck her A1c when she comes back in October. 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
--- OUTSIDE RECORDS SUMMARY | 2022-12-17 03:35 | External Medical Summary | Summary of Care ---
Author Name Unknown Organization [facility] [place] [address] Care Team Providers Care Take Down Sorter Name Role Phone Naomi Farfan PA-C Primary Care Prov ider Reason for Visit * Reason Comments Medication Administration vitamin b12 Encounter Details Date Type Department Care Team Description 08/14/2019 Nurse Only Ancillary 1st Floor, [place] 21 [place] [address] [place], Nurse Fp 21 [place] [address] Medication Administration (vitamin b12) Allergies No Known Allergiesdocumented as of this encounter (statuses as of 08/14/2019) Medications Medication Sig Dispensed Refills Start Date [...] 0 Active Cholecalciferol (VITAMIN D3) 1.25 MG (05794 UT) CapsuleIndications:S econdary hyperparathyroidism, non-renal (HCC) Take [...] 90 Tab 3 07/15/2019 Active nystatin (NYSTOP) 311902 UNIT/GM powderIndications:Cu taneous candidiasis Apply topically to [...] inj 1,000 mcgIndications:B12 deficiency 1000 mcg IM [id number] 07/15/2019 06/15/2020 Active documented as of this encounter (statuses as of 08/14/2019) Active Problems Problem Noted Date Type 2 [...] as of this encounter (statuses as of 08/14/2019) Resolved Problems Problem Noted Date Resolved Date COPD (chronic obstructive pu lmonary disease) with chronic bronchitis 05/27/2019 05/27/2019 documented as of this encounter (statuses as of 08/14/2019) Immunizations Name Administration Dates Next Due Pneumococcal [...] have Coronavirus / COVID-19? No / Unsure 08/14/2019 8:44 AM EDT documented as of this encounter Nursing Notes * Samia King MED ASSIST - 08/14/2019 9:10 AM EDT Pre-Administration Time Out Procedure Performed: Yes Patient Identified (Ask Name/Date of ): Yes Does the patient have a fever greater than 101 degrees today? No Patient allergic to latex? No Has the patient ever fainted after receiving an injection? No VFC Stock: No Injection(s) verified: Yes, Injection Name: Vitamin B12 Verified Side and Site: Yes Verified Shot(s) with Parent(s)/Patient: Yes documented in this encounter Plan of Treatment Upcoming Encounters Date Type Specialty Care Team Description 09/15/2019 Nurse Only Ancillary Nurse Annie Kingston [address] [place] [address] 10/06/2019 Appointment Radiology 10/16/2019 Office Visit Family Medicine Lizeth Guzman PA-C [address] [place] [address] 06/15/2020 Appointment Radiology 06/29/2020 Office Visit Urology Indra Jiménez Jr., MD [address] [facility] [address] [place] [address] Health Maintenance Due Date Last Done Comments Zoster Vaccines (1 of 2) 1994 DIABETES-HGBA1C EVERY 6 MONTHS 12/02/2019 06/03/2019 Yearly B-12 06/03/2020 06/03/2019 DIABETES-URINE MICROALBUMIN EVERY 12 MONTHS 06/06/2020 06/06/2019 DIABETES-EYE EXAM 06/29/2020 06/30/2019 DIABETES-FOOT EXAM 07/14/2020 07/15/2019 DXA-SCREENING EVERY 7 YRS- E SMARTSET# [id number] TO ORDER 03/11/2026 03/11/2019 DTaP,Tdap,and Td Vaccines (3 - Td) 03/09/2027 03/09/2017, 03/24/2009 Pneumococcal Vaccine: 65+ Years Completed 05/27/2019, 03/08/2015, 06/30/2014 Influenza Vaccine (FLU shot) Completed , 02/22/2016, 03/08/2015 MENINGOCOCCAL (MENACTRA/MENVEO) Aged Out No longer eligible b ased on patient's age to complete this topic documented as of this encounter Implants Not on filedocumented as of this encounter Administered Medications Active Administered Medications - up to 3 most recent administrations Medication Order MAR Action Action Date Dose Rate Site vitamin b-12 (CYANOCOBALAMIN) inj 1,000 mcg 1,000 mcg, Intramuscular, [id number], First dose on Sun07/15/19 at 1045, Last dose on Sun05/18/20 at 1045, For 12 doses Given 08/14/2019 9:10 AM EDT 1,000 mcg Deltoid Left Upper documented in this encounter Advance Directives Documents on File Type Date Recorded Patient Intern Retail 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 Advanced Directive
--- OUTSIDE RECORDS SUMMARY | 2022-12-17 03:35 | External Medical Summary | Summary of Care ---
Author Name Unknown Organization [facility] [place] [address] Care Team Providers Care Stick Welder Name Role Phone Naomi Farfan PA-C Primary Care Prov ider Reason for Visit * Reason Comments Follow Up 07/21, 07/22, 07/24 Encounter Details Date Type Department Care Team Description [facility] [place] [address] Lizeth Guzman PA-C [facility] [address] [place] [address] Follow Up (07/21, [...] 0 Active Cholecalciferol (VITAMIN D3) 1.25 MG (53627 UT) CapsuleIndications:S econdary hyperparathyroidism, non-renal (HCC) Take [...] 90 Tab 3 07/15/2019 Active nystatin (NYSTOP) 225391 UNIT/GM powderIndications:Cu taneous candidiasis Apply topically to [...] inj 1,000 mcgIndications:B12 deficiency 1000 mcg IM [id number] 07/15/2019 06/15/2020 Active documented as of this [...] Telephone Encounter - Ashlie Macias LPN - 07/28/2019 10:29 AM EDT Pt informed, verbalizes understanding * Telephone Encounter - Reji Alfaro MD [...] in October. * Telephone Encounter - Maggy Lu OSA - 07/25/2019 4:33 PM EDT Patient returning [...] call us back * Telephone Encounter - Nlisa José LPN - 07/23/2019 12:39 PM EDT [...] Visit Family Medicine Lizeth Guzman PA-C [address] [place] [address] 06/15/2020 Appointment Radiology 06/29/2020 Office Visit Urology Indra Jiménez Jr., MD [address] [place] [address] Health Maintenance Due [...] Documents on File Type Date Recorded Patient Alpine Patroller 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 Advanced Directive
--- OUTSIDE RECORDS SUMMARY | 2022-12-17 03:35 | External Medical Summary | Summary of Care ---
Author Name Unknown [place] [address] Care Team Providers Care Director Agricultural Services Name Role Phone Lizeth Guzman PA-C Primary Care Provi shamir Reason for Visit * Reason Comments Medication Refill 09/25 Medication Refill Encounter Details Date Type Department Care Team Description 09/25/2019 Telephone [facility] Thee Jones 21 [facility] [place] [address] Naomi Farfan PA-C 21 [facility] [place] [address] Medication Refill (09/25); Medication Refill Allergies No Known Allergiesdocumented as of this encounter (statuses as of 09/26/2019) Medications Medication Sig Dispensed Refills Start Date [...] 90 Tab 3 07/15/2019 Active nystatin (NYSTOP) 229760 UNIT/GM powderIndications: Cutaneous candidiasis Apply topically to [...] inj 1,000 mcgIndications:B12 deficiency 1000 mcg IM [id number] 07/15/2019 06/15/2020 Active documented as of this encounter (statuses as of 09/26/2019) Active Problems Problem Noted Date Type 2 [...] as of this encounter (statuses as of 09/26/2019) Resolved Problems Problem Noted Date Resolved Date COPD (chronic obstructive pu lmonary disease) with chronic bronchitis 05/27/2019 05/27/2019 documented as of this encounter (statuses as of 09/26/2019) Immunizations Name Administration Dates Next Due Pneumococcal [...] review * Telephone Encounter - Waleska Elizabeth, food analyst - 09/25/2019 2:29 PM EDT Medication(s) is/are [...] Medicine Lizeth Guzman PA-C 21 [place] [id number] 02/24/2020 Appointment Radiology 06/15/2020 Appointment Radiology 06/29/2020 Office Visit Urology Indra Jiménez Jr., MD [address] [place] [address] [place] [id number] Health Maintenance Due Date Last Done Comments Zoster Vaccines (1 of 2) 1994 DIABETES-HGBA1C EVERY 6 MONTHS 12/02/2019 06/03/2019 Yearly B-12 06/03/2020 06/03/2019 DIABETES-URINE MICROALBUMIN EVERY 12 MONTHS 06/06/2020 06/06/2019 DIABETES-EYE EXAM 06/29/2020 06/30/2019 DIABETES-FOOT EXAM 07/14/2020 07/15/2019 DXA-SCREENING EVERY 7 YRS- E SMARTSET# [id number] TO ORDER 03/11/2026 03/11/2019 DTaP,Tdap,and Td Vaccines [...] Documents on File Type Date Recorded Patient Collections Assistant 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 Advanced Directive
--- OUTSIDE RECORDS SUMMARY | 2022-12-17 03:35 | External Medical Summary | Summary of Care ---
Author Name Unknown [place] [address] Care Team Providers Care Lease Attendant Name Role Phone Lizeth Guzman PA-C Primary Care Provi shamir Reason for Visit * Reason Comments Medication Refill Medication Refill Encounter Details Date Type Department Care Team Description 09/25/2019 Telephone [facility] Thee Jones 21 [facility] [place] [address] Naomi Farfan PA-C 21 [facility] [place] [address] Medication Refill; Medication Refill Allergies No Known Allergiesdocumented as [...] 90 Tab 3 07/15/2019 Active nystatin (NYSTOP) 685000 UNIT/GM powderIndications: Cutaneous candidiasis Apply topically to [...] inj 1,000 mcgIndications:B12 deficiency 1000 mcg IM [id number] 07/15/2019 06/15/2020 Active documented as of this [...] review * Telephone Encounter - Waleska Elizabeth cruise counselor - 09/25/2019 2:29 PM EDT Medication(s) is/are [...] Medicine Lizeth Guzman PA-C 21 [place] [id number] 02/24/2020 Appointment Radiology 06/15/2020 Appointment Radiology 06/29/2020 Office Visit Urology Indra Jiménez Jr., MD [address] [place] [address] [place] [address] Health Maintenance Due Date Last Done Comments Zoster Vaccines (1 of 2) 1994 DIABETES-HGBA1C EVERY 6 MONTHS 12/02/2019 06/03/2019 Yearly B-12 06/03/2020 06/03/2019 DIABETES-URINE MICROALBUMIN EVERY 12 MONTHS 06/06/2020 06/06/2019 DIABETES-EYE EXAM 06/29/2020 06/30/2019 DIABETES-FOOT EXAM 07/14/2020 07/15/2019 DXA-SCREENING EVERY 7 YRS- E SMARTSET# [id number] TO ORDER 03/11/2026 03/11/2019 DTaP,Tdap,and Td Vaccines [...] Documents on File Type Date Recorded Patient Safety Engineer 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 Advanced Directive
--- OUTSIDE RECORDS SUMMARY | 2022-12-17 03:35 | External Medical Summary | Summary of Care ---
Author Name Unknown [place] [address] Care Team Providers Care Client Relationship Executive Name Role Phone Naomi Farfan PA-C Primary Care Prov ider Reason for Visit * Reason Comments Follow Up 07/21 Encounter Details Date Type Department Care Team Description 07/21/2019 Telephone [facility] Thee Jones 21 [address] [place] [address] Lizeth Guzman PA-C 21 [facility] [place] [address] Follow Up (07/21) Allergies No Known Allergiesdocumented as of this encounter (statuses as of 07/22/2019) Medications Medication Sig Dispensed Refills Start Date [...] 0 Active Cholecalciferol (VITAMIN D3) 1.25 MG (71558 UT) CapsuleIndications:S econdary hyperparathyroidism, non-renal (HCC) Take [...] 90 Tab 3 07/15/2019 Active nystatin (NYSTOP) 448903 UNIT/GM powderIndications:Cu taneous candidiasis Apply topically to [...] inj 1,000 mcgIndications:B12 deficiency 1000 mcg IM [id number] 07/15/2019 06/15/2020 Active documented as of this encounter (statuses as of 07/22/2019) Active Problems Problem Noted Date Type 2 [...] as of this encounter (statuses as of 07/22/2019) Resolved Problems Problem Noted Date Resolved Date COPD (chronic obstructive pu lmonary disease) with chronic bronchitis 05/27/2019 05/27/2019 documented as of this encounter (statuses as of 07/22/2019) Immunizations Name Administration Dates Next Due Pneumococcal [...] Team Description 08/14/2019 Nurse Only Ancillary Nurse Thee Fp 21 [facility] [place] [address] [phone] 10/06/2019 Appointment Radiology 10/16/2019 Office Visit Family Medicine Lizeth Guzman PA-C [address] [place] [phone] 06/15/2020 Appointment Radiology 06/29/2020 Office Visit Urology Indra Jiménez Jr., MD [facility] [address] [place] [id number] Health Maintenance Due Date Last Done Comments [...] on File Type Date Recorded Patient Utility Engineer 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 Advanced Directive
--- OUTSIDE RECORDS SUMMARY | 2022-12-17 03:35 | External Medical Summary | Summary of Care ---
Author Name Unknown Organization [facility] [place] [address] Care Team Providers Care Jeep Driver Name Role Phone Naomi Farfan PA-C Primary Care Prov ider Reason for Visit * Reason Comments Medication Question 07/15 No Answer/No VM, 07/16, 07/17 letter sent Encounter Details Date Type Department Care Team Description 07/15/2019 Telephone [facility] 21 [facility] [place] [address] Lizeth Guzman PA-C 21 [place] [address] Medication Question (07/15 No Answer/No VM, ... Allergies No Known Allergiesdocumented as of this encounter (statuses as of 07/18/2019) Medications Medication Sig Dispensed Refills Start Date [...] 0 Active Cholecalciferol (VITAMIN D3) 1.25 MG (25186 UT) CapsuleIndications:S econdary hyperparathyroidism, non-renal (HCC) Take [...] 90 Tab 3 07/15/2019 Active nystatin (NYSTOP) 654589 UNIT/GM powderIndications:Cu taneous candidiasis Apply topically to [...] inj 1,000 mcgIndications:B12 deficiency 1000 mcg IM [id number] 07/15/2019 06/15/2020 Active documented as of this encounter (statuses as of 07/18/2019) Active Problems Problem Noted Date Type 2 [...] as of this encounter (statuses as of 07/18/2019) Resolved Problems Problem Noted Date Resolved Date COPD (chronic obstructive pu lmonary disease) with chronic bronchitis 05/27/2019 05/27/2019 documented as of this encounter (statuses as of 07/18/2019) Immunizations Name Administration Dates Next Due Pneumococcal [...] encounter Miscellaneous Notes * Telephone Encounter - Kaylie Pulliam LPN - 07/18/2019 9:13 AM EDT No answer at patient's number. No machine available. Letter sent for pt to contact * Telephone Encounter - Ashlie Macias LPN - 07/17/2019 9:29 AM EDT Voice mailbox not set up, unable to let msg * Telephone Encounter - Leslye Lopez LPN - 07/16/2019 2:52 PM EDT I tried to call patient and was unable to contact her because there was no answer and no voicemail set up. Will need to try again. * Telephone Encounter - Lizeth Guzman PA-C - 07/16/2019 1:31 PM EDT Have her take FBS in AM tomorrow, at lunch on Sunday, dinner on Sunday, bedtime on Sunday and continue cycle for approx 2 wks. Please have her call with results * Telephone Encounter - Sylwia Silva LPN - 07/16/2019 12:47 PM EDT Pt returning call, states that she does not write down her readings but she can start. How long would you like pt to do so? She is unsure how to get readings of her meter. Please advise thank you * Telephone Encounter - Yolie Mullins OSA - 07/16/2019 12:44 PM EDT Reason for patient's call: patient returning call Caller was transferred to [facility] at the nurse line. * Telephone Encounter - Krupa Simon LPN - 07/16/2019 11:01 AM EDT Tried to contact pt again, no answer, no voicemail set up. * Telephone Encounter - Leslye Lopez LPN - 07/15/2019 4:41 PM EDT I tried to call patient and was unable to contact her because there was no answer and no voicemail set up. Will need to try again. * Telephone Encounter - Lizeth Guzman PA-C - 07/15/2019 2:52 PM EDT Need more specific readings including times and readings from home. * Telephone Encounter - Samia King MED ASSIST - 07/15/2019 2:45 PM EDT Pt does not have Pace. Pt denies having any high readings. * Telephone Encounter - Lizeth Guzman PA-C - 07/15/2019 2:32 PM EDT Please contact pt regarding her DM. Pt having several yeast infections after starting Jardiance, looking for alternative Per MTM recommendations: [07/15/2019 10:08 AM] Nilsa Schuler: does she have Pace or Pace net? thats always my first question when it comes to medicare pateints [07/15/2019 10:10 AM] Nilsa Schuler: ideally i'd love to stop jardiance and start a GLP1 if its affordable but it would only be affordable if she had Pace/pacenet/medicaid if she doesn't, then you're looking at glimepiride or prandin unfortunately [07/15/2019 10:10 AM] Nilsa Schuler: if you think its a FOOD issue, go with prandin. That's usually what it is. Glimepirdie is sort of abandaid when food is the issue. but if you know for sure that her fasting readings are high, glimepiride is a fine choice Please find out if pt has PACE or PACE net and see if she monitors glucose at home at all to determine when her high numbers are occurring. documented in this encounter Plan of Treatment Upcoming Encounters Date Type Specialty Care Team Description 08/14/2019 Nurse Only Ancillary Nurse Thee Fp [address] [place] [place] [address] 10/06/2019 Appointment Radiology 10/16/2019 Office Visit Family Medicine Lizeth Guzman PA-C 21 [place] [place] [phone] 06/15/2020 Appointment Radiology 06/29/2020 Office Visit Urology Jessy Ortiz, Indra [place]uhn [place] [address] [place] [address] Health Maintenance Due Date [...] Documents on File Type Date Recorded Patient Reference Librarian 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 Advanced Directive
--- OUTSIDE RECORDS SUMMARY | 2022-12-17 03:35 | External Medical Summary | Summary of Care ---
Author Name Unknown [place] [address] Care Team Providers Care Assistant Director Of Security Name Role Phone Naomi Farfan PA-C Primary Care Prov ider Reason for Visit * Reason Comments Medication Administration Vit B12 Encounter Details Date Type Department Care Team Description 09/16/2019 Nurse Only Ancillary 1st Floor, [place] 21 [place] [place] [address] [place], Nurse Fp 21 [place] [address] Medication Administration (Vit B12) Allergies No Known Allergiesdocumented as of this encounter (statuses as of 09/16/2019) Medications Medication Sig Dispensed Refills Start Date [...] 90 Tab 3 07/15/2019 Active nystatin (NYSTOP) 312023 UNIT/GM powderIndications:Cut aneous candidiasis Apply topically to [...] inj 1,000 mcgIndications:B12 deficiency 1000 mcg IM [id number] 07/15/2019 06/15/2020 Active documented as of this encounter (statuses as of 09/16/2019) Active Problems Problem Noted Date Type 2 [...] as of this encounter (statuses as of 09/16/2019) Resolved Problems Problem Noted Date Resolved Date COPD (chronic obstructive pu lmonary disease) with chronic bronchitis 05/27/2019 05/27/2019 documented as of this encounter (statuses as of 09/16/2019) Immunizations Name Administration Dates Next Due Pneumococcal [...] Sign Reading Time Taken Comments Blood Pressure - - Pulse - - Temperature 36.5 C (97.7 F) 09/16/2019 10:02 AM E DT Respiratory Rate - - Oxygen Saturation - - Inhaled Oxygen Concentration - - Weight - - Height - - Body Mass Index - - documented in this encounter Nursing Notes * Leslye Lopez LPN - 09/16/2019 10:03 AM EDT Chief Complaint Patient presents with Medication Administration Vit B12 Pre-Administration Time Out Procedure Performed: Yes Patient [...] Medicine Lizeth Guzman PA-C [address] [place] [phone] 02/24/2020 Appointment Radiology 06/15/2020 Appointment Radiology 06/29/2020 Office Visit Urology Indra Jiménez Jr., MD [address] [place] [address] Health Maintenance Due Date Last Done Comments Zoster Vaccines (1 of 2) 1994 DIABETES-HGBA1C EVERY 6 MONTHS 12/02/2019 06/03/2019 Yearly B-12 06/03/2020 06/03/2019 DIABETES-URINE MICROALBUMIN EVERY 12 MONTHS 06/06/2020 06/06/2019 DIABETES-EYE EXAM 06/29/2020 06/30/2019 DIABETES-FOOT EXAM 07/14/2020 07/15/2019 DXA-SCREENING EVERY 7 YRS-US E SMARTSET# [id number] TO ORDER 03/11/2026 03/11/2019 DTaP,Tdap,and Td Vaccines [...] (CYANOCOBALAMIN) inj 1,000 mcg 1,000 mcg, Intramuscular, [id number], First dose on Sun07/15/19 at 1045, Last dose on Sun05/18/20 at 1045, For 12 doses Given 09/16/2019 10:04 AM EDT 1,000 mcg Deltoid Right Upper documented in this encounter Advance Directives Documents on File Type Date Recorded Patient Sales Activity Manager 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 Advanced Directive
--- OUTSIDE RECORDS SUMMARY | 2022-12-17 03:36 | External Medical Summary | Summary of Care ---
Author Name Unknown [place] [address] Care Team Providers Care Attorney Name Role Phone Naomi Farfan PA-C Primary Care Prov ider Reason for Visit * Reason Comments Medication Question 07/14 No Answer/No VM Encounter Details Date Type Department Care Team Description 07/15/2019 Telephone [facility] [place] 21 [facility] [place] [address] Lizeth Guzman PA-C 21 [facility] [place] [address] Medication Question (07/14 No Answer/No VM) Allergies No Known Allergiesdocumented as of this encounter (statuses as of 07/15/2019) Medications Medication Sig Dispensed Refills Start Date [...] 0 Active Cholecalciferol (VITAMIN D3) 1.25 MG (58206 UT) CapsuleIndications:S econdary hyperparathyroidism, non-renal (HCC) Take [...] 90 Tab 3 07/15/2019 Active nystatin (NYSTOP) 507591 UNIT/GM powderIndications:Cu taneous candidiasis Apply topically to [...] inj 1,000 mcgIndications:B12 deficiency 1000 mcg IM [id number] 07/15/2019 06/15/2020 Active documented as of this encounter (statuses as of 07/15/2019) Active Problems Problem Noted Date Type 2 [...] as of this encounter (statuses as of 07/15/2019) Resolved Problems Problem Noted Date Resolved Date COPD (chronic obstructive pu lmonary disease) with chronic bronchitis 05/27/2019 05/27/2019 documented as of this encounter (statuses as of 07/15/2019) Immunizations Name Administration Dates Next Due Pneumococcal [...] Ancillary Nurse Annie Kingston [address] [place] [id number] 10/06/2019 Appointment Radiology 10/16/2019 Office Visit Family Medicine Lizeth Guzman PA-C [address] [place] [address] [phone] 06/15/2020 Appointment Radiology 06/29/2020 Office Visit Urology Jessy Ortiz, Indra Kuhn MD [address] [place] [address] [place] [address] [phone] Health Maintenance Due Date Last Done Comments DIABETES-FOOT EXAM 1962 Zoster Vaccines (1 of 2) 1994 Influenza Vaccine (FLU shot) (#1) 2018 02/22/2016, 03/08/2015 DIABETES-HGBA1C EVERY 6 MONTHS 12/02/2019 06/03/2019 Yearly B-12 06/03/2020 06/03/2019 DIABETES-URINE MICROALBUMIN EVERY 12 MONTHS 06/06/2020 06/06/2019 DIABETES-EYE EXAM 06/29/2020 06/30/2019 DXA-SCREENING EVERY 7 YRS-US E SMARTSET# [id number] TO ORDER 03/11/2026 03/11/2019 DTaP,Tdap,and Td Vaccines (3 - Td) 03/09/2027 03/09/2017, 03/24/2009 Pneumococcal Vaccine: 65+ Years Completed 05/27/2019, 03/08/2015, 06/30/2014 MENINGOCOCCAL (MENACTRA/MENVEO) Aged Out No longer eligible b ased on patient's age to complete this topic documented as of this encounter Implants Not on filedocumented as of this encounter Advance Directives Documents on File Type Date Recorded Patient Automation Consultant 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 Advanced Directive
--- OUTSIDE RECORDS SUMMARY | 2022-12-17 03:36 | External Medical Summary | Summary of Care ---
Author Name Unknown Organization [place] [address] Care Team Providers Care Software Development Manager Name Role Phone Naomi Farfan PA-C Primary Care Prov ider Reason for Visit * Reason Comments Medication Question 07/15 No Answer/No VM Encounter Details Date Type Department Care Team Description 07/15/2019 Telephone [facility] R[place]e [place] 21 [facility] [place] [address] Lizeth Guzman PA-C 21 [facility] [place] [address] Medication Question (07/15 No Answer/No VM) Allergies No Known Allergiesdocumented as of this encounter (statuses as of 07/16/2019) Medications Medication Sig Dispensed Refills Start Date [...] 0 Active Cholecalciferol (VITAMIN D3) 1.25 MG (49960 UT) CapsuleIndications:S econdary hyperparathyroidism, non-renal (HCC) Take [...] 90 Tab 3 07/15/2019 Active nystatin (NYSTOP) 172973 UNIT/GM powderIndications:Cu taneous candidiasis Apply topically to [...] inj 1,000 mcgIndications:B12 deficiency 1000 mcg IM [id number] 07/15/2019 06/15/2020 Active documented as of this encounter (statuses as of 07/16/2019) Active Problems Problem Noted Date Type 2 [...] as of this encounter (statuses as of 07/16/2019) Resolved Problems Problem Noted Date Resolved Date COPD (chronic obstructive pu lmonary disease) with chronic bronchitis 05/27/2019 05/27/2019 documented as of this encounter (statuses as of 07/16/2019) Immunizations Name Administration Dates Next Due Pneumococcal [...] encounter Miscellaneous Notes * Telephone Encounter - Krupa Simon LPN [...] Medicine Lizeth Guzman PA-C [address] [place] [address] [phone] 06/15/2020 Appointment Radiology 06/29/2020 Office Visit Urology Jessy Ortiz, Indra Kuhn MD [address] [place] [address] [phone] Health Maintenance Due Date Last Done Comments [...] Documents on File Type Date Recorded Patient Aircraft Delivery Checker 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 Advanced Directive
--- OUTSIDE RECORDS SUMMARY | 2022-12-17 03:36 | External Medical Summary | Summary of Care ---
Author Name Unknown Organization [place] [address] Care Team Providers Care Laminator Printed Circuit Boards Name Role Phone Naomi Farfan PA-C Primary Care Prov ider Reason for Visit * Reason Comments Medication Question 07/15 No Answer/No VM, 07/16 Encounter Details Date Type Department Care Team Description [facility] [place] [address] Lizeth Guzman PA-C 21 [facility] [place] [address] Medication Question (07/15 No Answer/No VM, ... Allergies No Known Allergiesdocumented as of this encounter (statuses as of 07/17/2019) Medications Medication Sig Dispensed Refills Start Date [...] 0 Active Cholecalciferol (VITAMIN D3) 1.25 MG (39304 UT) CapsuleIndications:S econdary hyperparathyroidism, non-renal (HCC) Take 1 Cap by mouth once a week for 90 days. 12 Cap 0 06/14/2019 09/12/2019 Active empagliflozin (JARDIANCE) 10 MG TABSIndications:Type 2 diabetes mellitus with hemoglobin A1c goal of less than 7.0% ([facility]) Take 1 Tab by mouth daily. 30 Tab 11 06/14/2019 Active busPIRone (BUSPAR) 10 MG TabletIndications:GA D (generalized anxiety disorder) Take 1 Tab by mouth 2 times a day as needed for Anxiety. 60 Tab 0 07/15/2019 Active atorvaSTATin (LIPITOR) 80 MG TabletIndications:Dy slipidemia, goal LDL below 100 Take 1 Tab by mouth at bedtime. 90 Tab 3 07/15/2019 Active nystatin (NYSTOP) 157072 UNIT/GM powderIndications:Cu taneous candidiasis Apply topically to [...] inj 1,000 mcgIndications:B12 deficiency 1000 mcg IM [id number] 07/15/2019 06/15/2020 Active documented as of this encounter (statuses as of 07/17/2019) Active Problems Problem Noted Date Type 2 [...] as of this encounter (statuses as of 07/17/2019) Resolved Problems Problem Noted Date Resolved Date COPD (chronic obstructive pu lmonary disease) with chronic bronchitis 05/27/2019 05/27/2019 documented as of this encounter (statuses as of 07/17/2019) Immunizations Name Administration Dates Next Due Pneumococcal [...] patient returning call Caller was transferred to [facility] at the nurse line. * Telephone Encounter [...] Ancillary Nurse Thee [facility] [address] [place] [address] [phone] 10/06/2019 Appointment Radiology 10/16/2019 Office Visit Family Medicine Lizeth Guzman PA-C [address] [phone] 06/15/2020 Appointment Radiology 06/29/2020 Office Visit Urology Jessy Ortiz, Indra Kuhn MD [address] [place] [address] [place] [address] Health Maintenance Due Date Last Done Comments Zoster Vaccines (1 of 2) 1994 DIABETES-HGBA1C EVERY 6 MONTHS 12/02/2019 06/03/2019 Yearly B-12 06/03/2020 06/03/2019 DIABETES-URINE MICROALBUMIN EVERY 12 MONTHS 06/06/2020 06/06/2019 DIABETES-EYE EXAM 06/29/2020 06/30/2019 DIABETES-FOOT EXAM 07/14/2020 07/15/2019 DXA-SCREENING EVERY 7 YRS-US E SMARTSET# [id number] TO ORDER 03/11/2026 03/11/2019 DTaP,Tdap,and Td Vaccines [...] Documents on File Type Date Recorded Patient Aquarium Specialist 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 Advanced Directive
--- OUTSIDE RECORDS SUMMARY | 2022-12-17 03:36 | External Medical Summary | Summary of Care ---
Author Name Unknown Organization [place] [address] Care Team Providers Care Surgical Garment Fitter Name Role Phone Naomi Farfan PA-C Primary Care Prov ider Reason for Visit * Reason Comments Medication Question Encounter Details Date Type Department Care Team Description [facility] [address] [place] [address] Lizeth Guzman PA-C 21 [facility] [place] [address] Medication Question Allergies No Known Allergiesdocumented as of this [...] 0 Active Cholecalciferol (VITAMIN D3) 1.25 MG (33105 UT) CapsuleIndications:S econdary hyperparathyroidism, non-renal (HCC) Take [...] 90 Tab 3 07/15/2019 Active nystatin (NYSTOP) 281443 UNIT/GM powderIndications:Cu taneous candidiasis Apply topically to [...] inj 1,000 mcgIndications:B12 deficiency 1000 mcg IM [id number] 07/15/2019 06/15/2020 Active documented as of this [...] or prandin unfortunately [07/15/2019 10:10 AM] Nilsa Schuler.: if you think its a FOOD issue, [...] Ancillary Nurse Annie Kingston [address] [phone] 10/06/2019 Appointment Radiology 10/16/2019 Office Visit Family Medicine Lizeth Guzman PA-C [address] [address] 06/15/2020 Appointment Radiology 06/29/2020 Office Visit Urology Indra Jiménez Jr., MD [address] [place] [address] [place] [id number] Health Maintenance Due Date Last Done Comments DIABETES-FOOT EXAM 1962 Zoster Vaccines (1 of 2) 1994 Influenza Vaccine (FLU shot) (#1) 2018 02/22/2016, 03/08/2015 DIABETES-HGBA1C EVERY 6 MONTHS 12/02/2019 06/03/2019 Yearly B-12 06/03/2020 06/03/2019 DIABETES-URINE MICROALBUMIN EVERY 12 MONTHS 06/06/2020 06/06/2019 DIABETES-EYE EXAM 06/29/2020 06/30/2019 DXA-SCREENING EVERY 7 YRS- E SMARTSET# [id number] TO ORDER 03/11/2026 03/11/2019 DTaP,Tdap,and Td Vaccines (3 - Td) 03/09/2027 03/09/2017, 03/24/2009 Pneumococcal Vaccine: 65+ Years Completed 05/27/2019, 03/08/2015, 06/30/2014 MENINGOCOCCAL (MENACTRA/MENVEO) Aged Out No longer eligible b ased on patient's age to complete this topic documented as of this encounter Implants Not on filedocumented as of this encounter Advance Directives Documents on File Type Date Recorded Patient Division Operations Manager 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 Advanced Directive
--- OUTSIDE RECORDS SUMMARY | 2022-12-17 03:36 | External Medical Summary | Summary of Care ---
Author Name Unknown Organization [facility] [place] [address] Care Team Providers Care Security Attendant Name Role Phone Naomi Farfan PA-C Primary Care Prov ider Reason for Visit * Reason Comments Medication Administration Flu and/or Pne umo Inj Routine Exam Encounter Details Date Type Department Care Team Description 07/15/2019 Office Visit [facility] 21 [facility] [place] [address] Lizeth Guzman PA-C 21 [facility] [place] [address] Type 2 diabetes mellitus with stage 3 chronic kidney disease, without long-term current use of insulin ([facility])*; Type 2 diabetes mellitus with hemoglobin A1c goal of less than 7.0% ([facility]); ADRIANA (generalized anxiety disorder); Dyslipidemia, goal LDL below 100; B12 deficiency; Cutaneous candidiasis; DM type 2 nursing care encounter (HCC); Need for influenza vaccination; [place] of foot; Secondary hyperparathyroidism, non-renal ([facility]) Allergies No Known Allergiesdocumented as of this [...] 0 Active Cholecalciferol (VITAMIN D3) 1.25 MG (09507 UT) CapsuleIndication s:Secondary hyperparathyroidi sm, non-renal (HCC) Take 1 Cap by mouth once a week for 90 days. 12 Cap 0 06/14/2019 0 Active empagliflozin (JARDIANCE) 10 MG TABSIndications:T ype 2 diabetes mellitus with hemoglobin A1c goal of less than 7.0% (HCC) Take 1 Tab by mouth daily. 30 Tab 11 06/14/2019 Active busPIRone (BUSPAR) 10 MG TabletIndications :ADRIANA (generalized anxiety disorder) Take 1 Tab by mouth 2 times a day as needed for Anxiety. 60 Tab 0 07/15/2019 Active atorvaSTATin (LIPITOR) 80 MG TabletIndications :Dyslipidemia, goal LDL below 100 Take 1 Tab by mouth at bedtime. 90 Tab 3 07/15/2019 Active nystatin (NYSTOP) 340870 UNIT/GM powderIndications :Cutaneous candidiasis Apply topically to affected area 3 times a day. 15 g 0 07/15/2019 Active vitamin b-12 (CYANOCOBALAMIN) 1000 MCG/ML injectionIndicati ons:B12 deficiency Inject 1,000 mcg as directed every 30 days. 1 mL 11 07/15/2019 Active atorvaSTATin (LIPITOR) 80 MG Tablet Take 80 mg by mouth at bedtime. 0 05/18/2019 0 Discontinued(Refi ll) busPIRone (BUSPAR) 10 MG TabletIndications :ADRIANA (generalized anxiety disorder) Take 1 Tab by mouth 2 times a day as needed for Anxiety. 60 Tab 0 05/27/2019 0 Discontinued(Refi ll) Cyanocobalamin (B-12-SL) 1000 MCG SL TabletIndications :B12 deficiency Place 1,000 mcg under the tongue daily. 30 Tab 11 06/14/2019 0 Discontinued(Refi ll) Cyanocobalamin (B-12-SL) 1000 MCG SL TabletIndications :B12 deficiency Place 1,000 mcg under the tongue daily. 30 Tab 11 07/15/2019 0 Discontinued Hospital, Clinic, or Other Facility Administered Medication Ordered Dose Route Frequency Start Date End Date Status vitamin b-12 (CYANOCOBALAMIN) inj 1,000 mcgIndications:B12 deficiency 1000 mcg IM [id number] 07/15/2019 06/15/2020 Active documented as of this [...] Travel End documented as of this encounter Last Filed Vital Signs Vital Sign Reading Time Taken Comments Blood Pressure 130/70 07/15/2019 8:01 AM EDT Pulse 65 07/15/2019 8:01 AM EDT Temperature 36.8 C (98.2 F) 07/15/2019 8:01 AM ED T Respiratory Rate 20 07/15/2019 8:01 AM EDT Oxygen Saturation 96% 07/15/2019 8:01 AM EDT Inhaled Oxygen Concentration - - Weight 103.4 kg (228 lb) 07/15/2019 8:01 AM EDT Height - - Body Mass Index 36.8 05/19/2019 10:05 PM EST documented in this encounter Patient Instructions * Patient Instructions* Krupa Simon LPN - 07/15/2019 7:57 AM EDT Diabetes: Keeping Feet Healthy Inspect [...] calluses yourself. Talk to your doctor or slicer machine operator (a doctor who specializes in foot care) [...] the area doesnt appear to be healing. [id number] [employer], [address] [place] [address], [place] [address]. All rights reserved. This information is not intended as a substitute for professional medical care. Always follow your healthcare professional's instructions. documented in this encounter Progress Notes * Lizeth Guzman PA-C - 07/15/2019 8:09 AM EDT Subjective: Chief Complaint Patient presents with Medication Administration Flu and/or Pneumo Inj Routine Exam Nursing Notes: Krupa Simon LPN 07/15/19 0805 Signed Chief Complaint Patient presents with Medication Administration Flu and/or Pneumo Inj Routine Exam Pt c/o toes rubbing on right foot. HPI: Pt is a 74 year old female who presents today for a 6 wk return. In her previous visit to establish care with new PCP on 05/27, HPI is as follows: Reports she was doing well on her medications Then she was then weaned off klonopin at the end of January by per PCP She was doing well even off the klonopin and then her son and daughter started fighting so her anxiety increased Feels nervous, very tearful [facility] ER 05/19/19 c/o anxiety, life stressors Given #12 lorazepam 1 mg by the ER which made her sleep Saw Dr. Zimmer (prior PCP) yesterday She was started on celexa 20 mg daily and took her first dose this morning Yesterday Dr. Zimmer prescribed #14 klonopin 0.5 mg which she takes at bedtime She made this visit because she wants to change doctors On metformin; states PCP says she "has diabetes but she doesn't" Will schedule with Dr. Juárez GERD controlled on omeprazole No h/o ulcer On metoprolol for 'heart skipping a beat' PFT 02/2019: restriction, full PFT recommended in 6-12 months Denies SOB H/o AV replacement Saw Dr. Amos in the past Scheduled to see urology for right renal mass She was continued on celexa, buspar added. Klononpin again discontinued- pt has been compliant withthis. Feels her mood is good on current meds. Upon review of labs, was started on Vit D supplements, Jardiance for A1c at 7.4 and started on B12 injections Had one vag yeast infection treated with diflucan since starting jardiance. Now has a rash under both breasts. Has not used anything topical yet. Has corn on her right second toe. Painful at times. Updated Problem list, Medical History, Surgical History, Social History and Family History as documented. Patient Active Problem List Diagnosis Code Type 2 diabetes mellitus with hemoglobin A1c goal of less than 7.0% ([facility]) E11.9 Dyslipidemia, goal LDL below 100 E78.5 ADRIANA (generalized anxiety disorder) F41.1 S/P aortic valve replacement Z95.2 Right renal mass N28.89 Type 2 diabetes mellitus with diabetic chronic kidney disease ([facility]) E11.22 Secondary hyperparathyroidism, non-renal ([facility]) E21.1 B12 deficiency E53.8 Past Surgical History: [...] file Gets together: Not on file Attends adventism service: Not on file Active member of [...] Use Never User Vaping/E-Cigarette Substances Vaping/E-Cigarette Devices Outpatient Medications Marked as Taking for the 07/15/19 encounter (Office Visit) with Lizeth Guzman PA-C Medication Sig Cholecalciferol (VITAMIN D3) 1.25 MG (36503 UT) Capsule Take 1 Cap by mouth once a week for 90 days. Cyanocobalamin (B-12-SL) [address] 1,000 mcg under the tongue daily. empagliflozin (JARDIANCE) 10 MG TABS Take 1 Tab by mouth daily. aspirin enteric coated 81 MG TBEC Take 1 Tab by mouth daily. atorvaSTATin (LIPITOR) 80 MG Tablet Take 80 mg by mouth at bedtime. citalopram (CELEXA) 20 MG Tablet Take 1 Tab by mouth daily. clonazePAM (KLONOPIN) 0.5 MG Tablet Take 1 Tab by mouth at bedtime. MetFORMIN (GLUCOPHAGE) 1000 MG Tablet Take 1,000 mg by mouth 2 times a day with morning and evening meals. metoprolol tartrate (LOPRESSOR) 25 MG Tablet Take 12.5 mg by mouth 2 times a day. omeprazole (PRILOSEC) 20 MG CPDR Take 1 Cap by mouth daily. Review of patient's allergies indicates: No Known Allergies ROS: General: No change in weight, No weakness, No fatigue and No fevers, sweats, or chills Respiratory: No cough, sputum, or hemoptysis, No wheezing, No shortness of breath and No recent change in breathing Cardiac: No chest pain, No shortness of breath, No dyspnea on exertion, No orthopnea, No paroxysmalnocturnal dyspnea, No edema, No palpitations and No syncope Gastrointestinal: No dysphagia, No significant heartburn, No significant change in appetite, No nausea, vomiting, diarrhea, or constipation, No hematemesis, No blood in stools or black tarry stools, No abdominal bloating or early satiety and No abdominal pain OBJECTIVE: BP 130/70 | Pulse 65 | Temp (Src) 98.2 (Tympanic) | Resp 20 | Wt 228 lbs (103.420kg) | BMI 36.8 kg/m | BSA 2.19 m | SaO2 96% Physical Exam: General: alert, healthy, no distress, well nourished and well developed Heart: regular rate & rhythm, no murmurs and no gallops Lungs: clear to auscultation Abdomen: abdomen soft, non-tender, normal bowel sounds and no masses or organomegaly Neuro - CN II - IX grossly intact.normal strength 5/5 throughout Extremities: no joint deformities, effusion, or inflammation, no edema, no clubbing, no cyanosis Skin: skin color, texture, turgor are normal, no rashes or significant lesions, corn on the medial portion of second toe on R foot, erythematous, moist appearing symmetrical lesions under both breasts ASSESSMENT/Plan Type 2 diabetes mellitus with stage 3 chronic kidney disease, without long-term current use of insulin ([facility]) (Primary) - plan to stop Jardiance. Will discuss with MTM pharmacist to review options and contact pt when decision is made. Type 2 diabetes mellitus with hemoglobin A1c goal of less than 7.0% ([facility]) ADRIANA (generalized anxiety disorder) - busPIRone (BUSPAR) 10 MG Tablet; Take 1 Tab by mouth 2 times a day as needed for Anxiety. Dyslipidemia, goal LDL below 100 - atorvaSTATin (LIPITOR) 80 MG Tablet; Take 1 Tab by mouth at bedtime. B12 deficiency - vitamin b-12 (CYANOCOBALAMIN) 1000 MCG/ML injection; Inject 1,000 mcg as directed every 30 days. - vitamin b-12 (CYANOCOBALAMIN) inj 1,000 mcg Cutaneous candidiasis - nystatin (NYSTOP) 901928 UNIT/GM powder; Apply topically to affected area 3 times a day. DM type 2 nursing care encounter (HCC) - DIABETES FOOT EXAM Need for influenza vaccination - INFLUENZA VACC, IIV, SUBUNIT, ADJUVANTED, IM [place] of foot - recommended OTC corn pads and to reassess at next appt Follow Up: Return in about 3 months (around 10/14/2019) for Routine follow up. The above was discussed and understanding was expressed. Lizeht Guzman PA-C * Krupa Simon LPN - 07/15/2019 7:57 AM EDT DM Foot Exam completed today. Provider aware. Krupa Simon LPN Socks and Shoes Removed for Annual Diabetic [...] Nursing Notes * Krupa Simon LPN - 07/15/2019 8:05 AM EDT Chief Complaint Patient presents with Medication Administration Flu and/or Pneumo Inj Routine Exam Pt c/o toes rubbing on right foot. documented in this encounter Plan of Treatment Upcoming Encounters Date Type Specialty Care Team Description 08/14/2019 Nurse Only Ancillary Nurse Annie Kingston [address] [address] 10/06/2019 Appointment Radiology 10/16/2019 Office Visit Family Medicine Lizeth Guzman PA-C [address] [phone] 06/15/2020 Appointment Radiology 06/29/2020 Office Visit Urology Jessy Ortiz, Indra Kuhn MD [address] [facility] [address] [place] [address] Health Maintenance Due Date Last Done Comments Zoster Vaccines (1 of 2) 1994 DIABETES-HGBA1C EVERY 6 MONTHS 12/02/2019 06/03/2019 Yearly B-12 06/03/2020 06/03/2019 DIABETES-URINE MICROALBUMIN EVERY 12 MONTHS 06/06/2020 06/06/2019 DIABETES-EYE EXAM 06/29/2020 06/30/2019 DIABETES-FOOT EXAM 07/14/2020 07/15/2019 DXA-SCREENING EVERY 7 YRS-US E SMARTSET# [id number] TO ORDER 03/11/2026 03/11/2019 DTaP,Tdap,and Td Vaccines [...] goal of less than 7.0% ([facility]) ADRIANA (generalized anxiety disorder) Generalized anxiety disorder Dyslipidemia, goal LDL below 100 Other and unspecified hyperlipidemia B12 deficiency Other B-complex deficiencies Cutaneous candidiasis Candidiasis of skin and nails DM type 2 nursing care encounter (HCC) Type II or unspecified type diabetes mellitus without mention of complication, not stated as uncontrolled Need for influenza vaccination Need for prophylactic vaccination and inoculation against influenza [place] of foot Corns and callosities Secondary hyperparathyroidism, non-renal (HCC) Secondary hyperparathyroidism, non-renal documented in this encounter Administered Medications Active Administered Medications - up to 3 most recent administrations Medication Order MAR Action Action Date Dose Rate Site vitamin b-12 (CYANOCOBALAMIN) inj 1,000 mcg 1,000 mcg, Intramuscular, [id number], First dose on Sun07/15/19 at 1045, Last dose on Sun05/18/20 at 1045, For 12 doses Given 07/15/2019 10:15 AM EDT 1,000 mcg Deltoid Right Upper documented in this encounter Advance Directives Documents on File Type Date Recorded Patient Engraving Plate Maker 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 Advanced Directive
--- OUTSIDE RECORDS SUMMARY | 2022-12-17 03:36 | External Medical Summary | Summary of Care ---
Author Name Unknown [place] [address] Care Team Providers Care Furnace Firer Name Role Phone Naomi Farfan PA-C Primary Care Prov ider Reason for Visit * Reason Comments Medication Question 07/15 No Answer/No VM Encounter Details Date Type Department Care Team Description 07/15/2019 Telephone [facility] R[facility]e [facility] 21 [facility] [place] [place] [address] Lizeth Guzman PA-C 21 [facility] [place] [address] Medication Question (07/15 [...] 0 Active Cholecalciferol (VITAMIN D3) 1.25 MG (24857 UT) CapsuleIndications:S econdary hyperparathyroidism, non-renal (HCC) Take [...] 90 Tab 3 07/15/2019 Active nystatin (NYSTOP) 397993 UNIT/GM powderIndications:Cu taneous candidiasis Apply topically to [...] inj 1,000 mcgIndications:B12 deficiency 1000 mcg IM [id number] 07/15/2019 06/15/2020 Active documented as of this [...] patient returning call Caller was transferred to [facility] at the nurse line. * Telephone Encounter [...] Ancillary Nurse Thee Fp [address] [phone] 10/06/2019 Appointment Radiology 10/16/2019 Office Visit Family Medicine Lizeth Guzman PA-C [address] [phone] 06/15/2020 Appointment Radiology 06/29/2020 Office Visit Urology Indra Jiménez Jr., MD [address] [place] [address] [place] [address] Health Maintenance Due Date [...] Documents on File Type Date Recorded Patient Statement Clerks Manager 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 Advanced Directive
--- OUTSIDE RECORDS SUMMARY | 2022-12-17 03:36 | External Medical Summary | Summary of Care ---
Author Name Unknown [place] [address] Care Team Providers Care Machine Whitener Name Role Phone Naomi Farfan PA-C Primary Care Prov ider Reason for Visit * Reason Comments Medication Question Encounter Details Date Type Department Care Team Description [facility] [address] [place] [address] Lizeth Guzman PA-C 21 [facility] [place] [address] Medication Question Allergies No [...] 0 Active Cholecalciferol (VITAMIN D3) 1.25 MG (40255 UT) CapsuleIndications:S econdary hyperparathyroidism, non-renal (HCC) Take [...] 90 Tab 3 07/15/2019 Active nystatin (NYSTOP) 174720 UNIT/GM powderIndications:Cu taneous candidiasis Apply topically to [...] inj 1,000 mcgIndications:B12 deficiency 1000 mcg IM [id number] 07/15/2019 06/15/2020 Active documented as of this [...] Ancillary Nurse Annie Kingston [address] [phone] 10/06/2019 Appointment Radiology 10/16/2019 Office Visit Family Medicine Lizeth Guzman PA-C [address] [address] 06/15/2020 Appointment Radiology 06/29/2020 Office Visit Urology Indra Jiménez Jr., MD [address] [place] [address] [place] [phone] Health Maintenance Due Date Last Done Comments DIABETES-FOOT EXAM 1962 Zoster Vaccines (1 of 2) 1994 Influenza Vaccine (FLU shot) (#1) 2018 02/22/2016, 03/08/2015 DIABETES-HGBA1C EVERY 6 MONTHS 12/02/2019 06/03/2019 Yearly B-12 06/03/2020 06/03/2019 DIABETES-URINE MICROALBUMIN EVERY 12 MONTHS 06/06/2020 06/06/2019 DIABETES-EYE EXAM 06/29/2020 06/30/2019 DXA-SCREENING EVERY 7 YRS- E SMARTSET# [id number] TO ORDER 03/11/2026 03/11/2019 DTaP,Tdap,and Td Vaccines (3 - Td) 03/09/2027 03/09/2017, 03/24/2009 Pneumococcal Vaccine: 65+ Years Completed 05/27/2019, 03/08/2015, 06/30/2014 MENINGOCOCCAL (MENACTRA/MENVEO) Aged Out No longer eligible b ased on patient's age to complete this topic documented as of this encounter Implants Not on filedocumented as of this encounter Advance Directives Documents on File Type Date Recorded Patient Carrot Buncher 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 Advanced Directive
--- OUTSIDE RECORDS SUMMARY | 2022-12-17 03:36 | External Medical Summary | Summary of Care ---
Author Name Unknown [place] [address] Care Team Providers Care Portal Administrator Name Role Phone Naomi Farfan PA-C Primary Care Prov ider Reason for Visit * Reason Comments Medication Question 07/15 No Answer/No VM Encounter Details Date Type Department Care Team Description 07/15/2019 Telephone [facility] Rylee Joneswn 21 [facility] [place] [address] Lizeth Guzman PA-C 21 [facility] [place] [address] Medication Question (07/15 [...] 0 Active Cholecalciferol (VITAMIN D3) 1.25 MG (26337 UT) CapsuleIndications:S econdary hyperparathyroidism, non-renal (HCC) Take [...] 90 Tab 3 07/15/2019 Active nystatin (NYSTOP) 409518 UNIT/GM powderIndications:Cu taneous candidiasis Apply topically to [...] inj 1,000 mcgIndications:B12 deficiency 1000 mcg IM [id number] 07/15/2019 06/15/2020 Active documented as of this [...] encounter Miscellaneous Notes * Telephone Encounter - Yolie Mullins OSA - 07/16/2019 12:44 PM EDT Reason for patient's call: patient returning call Caller was transferred to [facility] at the nurse line. * [...] Ancillary Nurse Thee Fp 21 [place] [id number] 10/06/2019 Appointment Radiology 10/16/2019 Office Visit Family Medicine Lizeth Guzman PA-C 21 [place] [place] [address] 06/15/2020 Appointment Radiology 06/29/2020 Office Visit Urology Indra Jiménez Jr., MD [address] [place] [address] Health Maintenance Due Date Last Done Comments Zoster Vaccines (1 of 2) 1994 DIABETES-HGBA1C EVERY 6 MONTHS 12/02/2019 06/03/2019 Yearly B-12 06/03/2020 06/03/2019 DIABETES-URINE MICROALBUMIN EVERY 12 MONTHS 06/06/2020 06/06/2019 DIABETES-EYE EXAM 06/29/2020 06/30/2019 DIABETES-FOOT EXAM 07/14/2020 07/15/2019 DXA-SCREENING EVERY 7 YRS- E SMARTSET# [id number] TO ORDER 03/11/2026 03/11/2019 DTaP,Tdap,and Td Vaccines [...] Documents on File Type Date Recorded 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
--- OUTSIDE RECORDS SUMMARY | 2022-12-17 03:36 | External Medical Summary | Summary of Care ---
Author Name Unknown [place] [address] Care Team Providers Care Director Home Health Name Role Phone Naomi Farfan PA-C Primary Care Prov ider Reason for Visit * Reason Comments Medication Question 07/15 No Answer/No VM Encounter Details Date Type Department Care Team Description 07/15/2019 Telephone [facility] Rylee Joneswn 21 [facility] [place] [address] Lizeth Guzman PA-C 21 [facility] [place] [address] Medication Question (07/15 [...] 0 Active Cholecalciferol (VITAMIN D3) 1.25 MG (86656 UT) CapsuleIndications:S econdary hyperparathyroidism, non-renal (HCC) Take [...] 90 Tab 3 07/15/2019 Active nystatin (NYSTOP) 535337 UNIT/GM powderIndications:Cu taneous candidiasis Apply topically to [...] inj 1,000 mcgIndications:B12 deficiency 1000 mcg IM [id number] 07/15/2019 06/15/2020 Active documented as of this [...] patient returning call Caller was transferred to [facility] at the nurse line. * Telephone [...] Ancillary Nurse Thee Fp 21 [place] [address] [phone] 10/06/2019 Appointment Radiology 10/16/2019 Office Visit Family Medicine Lizeth Guzman PA-C 21 [place] [place] [address] [phone] 06/15/2020 Appointment Radiology 06/29/2020 Office Visit Urology Indra Jiménez Jr., MD [address] [place] [address] [place] [address] [phone] Health Maintenance Due Date Last Done Comments [...] Documents on File Type Date Recorded Patient Building Custodian 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 Advanced Directive
--- OUTSIDE RECORDS SUMMARY | 2022-12-17 03:36 | External Medical Summary | Summary of Care ---
Author Name Unknown Organization [facility] [place] [address] Care Team Providers Care Drapery Operator Name Role Phone Naomi Farfan PA-C Primary Care Prov ider Reason for Visit * Reason Comments Nurse Documentation Encounter Details Date Type Department Care Team Description 07/08/2019 Nurse Only Ancillary 1st Floor, [place] 21 [place] [address] [place], Nurse [place] 21 [place] [address] Nurse Documentation Allergies No Known Allergiesdocumented as of this encounter (statuses as of 07/08/2019) Medications Medication Sig Dispensed Refills Start Date [...] Tab by mouth daily. 0 05/26/2019 Active atorvaSTATin (LIPITOR) 80 MG Tablet Take 80 mg by mouth at bedtime. 0 05/18/2019 Active clonazePAM (KLONOPIN) 0.5 MG Tablet Take 1 Tab by mouth at bedtime. 0 05/26/2019 Active MetFORMIN (GLUCOPHAGE) 1000 MG Tablet Take 1,000 mg by mouth 2 times a day with morning and evening meals. 0 Active busPIRone (BUSPAR) 10 MG TabletIndications:ADRIANA (generalized anxiety disorder) Take 1 Tab by mouth 2 times a day as needed for Anxiety. 60 Tab 0 05/27/2019 Active Cyanocobalamin (B-12-SL) 1000 MCG SL TabletIndications:B12 deficiency Place 1,000 mcg under the tongue daily. 30 Tab 11 06/14/2019 Active Cholecalciferol (VITAMIN D3) 1.25 MG (10067 UT) CapsuleIndications:Se condary hyperparathyroidism, non-renal (HCC) Take 1 Cap by mouth once a week for 90 days. 12 Cap 0 06/14/2019 09/12/2019 Active empagliflozin (JARDIANCE) 10 MG TABSIndications:Type 2 diabetes mellitus with hemoglobin A1c goal of less than 7.0% (HCC) Take 1 Tab by mouth daily. 30 Tab 11 06/14/2019 Active Hospital, Clinic, or Other Facility Administered Medication Ordered Dose Route Frequency Start Date End Date Status vitamin b-12 (CYANOCOBALAMIN) inj 1,000 mcgIndications:B12 deficiency 1000 mcg IM QWEEK 06/14/2019 07/12/2019 Active documented as of this encounter (statuses as of 07/08/2019) Active Problems Problem Noted Date Type 2 [...] as of this encounter (statuses as of 07/08/2019) Resolved Problems Problem Noted Date Resolved Date COPD (chronic obstructive pu lmonary disease) with chronic bronchitis 05/27/2019 05/27/2019 documented as of this encounter (statuses as of 07/08/2019) Immunizations Name Administration Dates Next Due Pneumococcal Conjugate Vacc, 13 Valent (Prevnar) 05/27/2019,03/08/2015 Pneumococcal Polysaccharide PPV23 (Pneumovax) TDAP (age 11 and older)(Adacel) 03/24/2009 documented [...] Never true Sex Assigned at Date Recorded Not on file Job Start Date Occupation Industry Not on file Not on file Not on file Travel History Travel Start Travel End documented as of this encounter Nursing Notes * Kaylie Pulliam LPN - 07/08/2019 10:19 AM EDT Pre-Administration Time Out Procedure Performed: Yes Patient Identified (Ask Name/Date of ): Yes Does the patient have a fever greater than 101 degrees today? No Patient allergic to latex? No Has the patient ever fainted after receiving an injection? No VFC Stock: No Immunization(s) verified: Yes, b12 Verified Side and Site: Yes Verified Shot(s) with Parent(s)/Patient: Yes documented in this encounter Plan of Treatment Upcoming Encounters Date Type Specialty Care Team Description 07/15/2019 Office Visit Family Medicine Naomi Farfan PA-C [address] [place] [id number] 10/06/2019 Appointment Radiology 06/15/2020 Appointment Radiology 06/29/2020 Office Visit Urology Indra Jiménez Jr., MD [address] [place] [address] Health Maintenance Due Date Last Done Comments DIABETES-FOOT EXAM 1962 Zoster Vaccines (1 of 2) 1994 Influenza Vaccine (FLU shot) (#1) 2018 02/22/2016, 03/08/2015 DIABETES-HGBA1C EVERY 6 MONTHS 12/02/2019 06/03/2019 Yearly B-12 06/03/2020 06/03/2019 DIABETES-URINE MICROALBUMIN EVERY 12 MONTHS 06/06/2020 06/06/2019 DIABETES-EYE EXAM 06/29/2020 06/30/2019 DXA-SCREENING EVERY 7 YRS-US E SMARTSET# [id number] [...] (CYANOCOBALAMIN) inj 1,000 mcg 1,000 mcg, Intramuscular, QWEEK, First dose on 06/14/19 at 1700, Last dose on 07/05/19 at 1700, For 4 doses Given 07/08/2019 10:18 AM EDT 1,000 mcg Deltoid Right Upper documented in this encounter Advance Directives Documents on File Type Date Recorded Patient Research And Development Engineer 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 Advanced Directive
--- OUTSIDE RECORDS SUMMARY | 2022-12-17 03:36 | External Medical Summary | Summary of Care ---
Author Name Unknown Organization [place] [address] Care Team Providers Care Manager Battery Name Role Phone Naomi Farfan PA-C Primary Care Prov ider Reason for Visit * Reason Comments Medication Administration Flu and/or Pne umo Inj Routine Exam Encounter Details Date Type Department Care Team Description 07/15/2019 Office Visit [facility] 21 [facility] [place] [address] Lizeth Guzman PA-C 21 [facility] [place] [facility] [place] [place] [address] Type 2 diabetes mellitus with stage 3 chronic kidney disease, without long-term current use of insulin ([facility])*; Type 2 diabetes mellitus with hemoglobin A1c goal of less than 7.0% ([facility]); ADRIANA (generalized anxiety disorder); Dyslipidemia, goal LDL below 100; B12 deficiency; Cutaneous candidiasis; DM type 2 nursing care encounter (HCC); Need for influenza vaccination; Tina of foot; Secondary hyperparathyroidism, non-renal ([facility]) Allergies No Known Allergiesdocumented as of this [...] 0 Active Cholecalciferol (VITAMIN D3) 1.25 MG (76344 UT) CapsuleIndication s:Secondary hyperparathyroidi sm, non-renal (HCC) [...] 90 Tab 3 07/15/2019 Active nystatin (NYSTOP) 390167 UNIT/GM powderIndications :Cutaneous candidiasis Apply topically to [...] inj 1,000 mcgIndications:B12 deficiency 1000 mcg IM [id number] 07/15/2019 06/15/2020 Active documented as of this [...] calluses yourself. Talk to your doctor or hooker machine tender (a doctor who specializes in foot care) [...] the area doesnt appear to be healing. [id number] [employer], [address] [place] [address], [place] [address]. All rights reserved. This information is not [...] her anxiety increased Feels nervous, very tearful [facility] ER 05/19/19 c/o anxiety, life stressors Given [...] A1c at 7.4 and started on B12 injections, PTH elevated. Had one vag yeast infection treated with [...] goal of less than 7.0% ([facility]) E11.9 Dyslipidemia, goal LDL below 100 E78.5 ADRIANA (generalized anxiety disorder) F41.1 S/P aortic valve replacement Z95.2 Right renal mass N28.89 Type 2 diabetes mellitus with diabetic chronic kidney disease ([facility]) E11.22 Secondary hyperparathyroidism, non-renal ([facility]) E21.1 B12 deficiency E53.8 Past Surgical History: [...] file Gets together: Not on file Attends pentecostalism service: Not on file Active member of [...] Medication Sig Cholecalciferol (VITAMIN D3) 1.25 MG (68411 UT) Capsule Take 1 Cap by mouth [...] long-term current use of insulin ([facility]) (Primary) - plan to stop Jardiance. Will discuss with [place] pharmacist to review options and contact pt when decision is made. Type 2 diabetes mellitus with hemoglobin A1c goal of less than 7.0% ([facility]) ADRIANA (generalized anxiety disorder) - busPIRone (BUSPAR) [...] 1,000 mcg Cutaneous candidiasis - nystatin (NYSTOP) 677961 UNIT/GM powder; Apply topically to affected area 3 times a day. DM type 2 nursing care encounter (HCC) - DIABETES FOOT EXAM Need for influenza vaccination - INFLUENZA VACC, IIV, SUBUNIT, ADJUVANTED, IM Tina of foot - recommended OTC corn pads and to reassess at next appt Secondary hyperparathyroidism, non-renal ([facility]) Follow Up: Return in about 3 months (around 10/14/2019) for Routine follow up. The above was discussed and understanding was expressed. Lizeth Guzman PA-C * Krupa Simon LPN - [...] Ancillary Nurse Annie Kingston [address] [phone] 10/06/2019 Appointment Radiology 10/16/2019 Office Visit Family Medicine Lizeth Guzman PA-C 21 [address] [place] [phone] 06/15/2020 Appointment Radiology 06/29/2020 Office Visit Urology Jessy Ortiz, Indra Kuhn MD [address] [place] [address] [place] [address] Health Maintenance Due Date [...] A1c goal of less than 7.0% (HCC) ADRIANA (generalized anxiety disorder) Generalized anxiety disorder Dyslipidemia, goal LDL below 100 Other and unspecified hyperlipidemia B12 deficiency Other B-complex deficiencies Cutaneous candidiasis Candidiasis of skin and nails DM type 2 nursing care encounter (HCC) Type II or unspecified type diabetes mellitus without mention of complication, not stated as uncontrolled Need for influenza vaccination Need for prophylactic vaccination and inoculation against influenza Tina of foot Corns and callosities Secondary hyperparathyroidism, non-renal (HCC) Secondary hyperparathyroidism, non-renal documented in this encounter Administered Medications Active Administered Medications - up to 3 most recent administrations Medication Order MAR Action Action Date Dose Rate Site vitamin b-12 (CYANOCOBALAMIN) inj 1,000 mcg 1,000 mcg, Intramuscular, [id number], First dose on Sun07/15/19 at 1045, Last dose on Sun05/18/20 at 1045, For 12 doses Given 07/15/2019 10:15 AM EDT 1,000 mcg Deltoid Right Upper documented in this encounter Advance Directives Documents on File Type Date Recorded Patient Jewelry Inspector 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 Advanced Directive
--- OUTSIDE RECORDS SUMMARY | 2022-12-17 03:36 | External Medical Summary | Summary of Care ---
Author Name Unknown [place] [address] Care Team Providers Care Investment Sales Assistant Name Role Phone Naomi Farfan PA-C Primary Care Prov ider Reason for Visit * Reason Comments Medication Question Encounter Details Date Type Department Care Team Description [facility] [facility] [place] [address] Lizeth Guzman PA-C 21 [facility] [place] [address] Medication Question Allergies No [...] 0 Active Cholecalciferol (VITAMIN D3) 1.25 MG (66407 UT) CapsuleIndications:S econdary hyperparathyroidism, non-renal (HCC) Take [...] 90 Tab 3 07/15/2019 Active nystatin (NYSTOP) 657597 UNIT/GM powderIndications:Cu taneous candidiasis Apply topically to [...] inj 1,000 mcgIndications:B12 deficiency 1000 mcg IM [id number] 07/15/2019 06/15/2020 Active documented as of this [...] Medicine Lizeth Guzman PA-C 21 [address] [place] [phone] 06/15/2020 Appointment Radiology 06/29/2020 Office Visit Urology Indra Jiménez Jr., MD [address] [place] [address] [place] [phone] Health Maintenance Due Date Last Done Comments [...] Documents on File Type Date Recorded Patient Hand Grinder 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 Advanced Directive
--- OUTSIDE RECORDS SUMMARY | 2022-12-17 03:36 | External Medical Summary | Summary of Care ---
Author Name Unknown [place] [address] Care Team Providers Care Operations Clerk Name Role Phone Naomi Farfan PA-C Primary Care Prov ider Reason for Visit * Reason Comments Medication Question 07/15 No Answer/No VM Encounter Details Date Type Department Care Team Description 07/15/2019 Telephone [facility] Rylee Joneswn 21 [facility] [place] [address] Lizeth Guzman PA-C 21 [facility] [place] [address] Medication Question (07/15 [...] 0 Active Cholecalciferol (VITAMIN D3) 1.25 MG (07011 UT) CapsuleIndications:S econdary hyperparathyroidism, non-renal (HCC) Take [...] 90 Tab 3 07/15/2019 Active nystatin (NYSTOP) 250352 UNIT/GM powderIndications:Cu taneous candidiasis Apply topically to [...] inj 1,000 mcgIndications:B12 deficiency 1000 mcg IM [id number] 07/15/2019 06/15/2020 Active documented as of this [...] encounter Miscellaneous Notes * Telephone Encounter - Sylwia Silva LPN [...] patient returning call Caller was transferred to [facility] at the nurse line. * Telephone [...] Urology Jessy Ortiz, Indra Kuhn MD [address] [address] [place] [address] Health Maintenance Due Date [...] on File Type Date Recorded Patient Research Geneticist 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 Advanced Directive
--- OUTSIDE RECORDS SUMMARY | 2022-12-17 03:36 | External Medical Summary | Summary of Care ---
Author Name Unknown Organization [facility] [place] [address] Care Team Providers Care Physician Scribe Name Role Phone Naomi Farfan PA-C Primary Care Prov ider Reason for Visit * Reason Comments Medication Administration Flu and/or Pne umo Inj Routine Exam Encounter Details Date Type Department Care Team Description 07/15/2019 Office Visit [facility] 21 [facility] [place] [address] Lizeth Guzman PA-C 21 [facility] [place] [address] Type 2 diabetes mellitus with stage 3 chronic kidney disease, without long-term current use of insulin ([facility]; Type 2 diabetes mellitus with hemoglobin A1c goal of less than 7.0% ([facility]); ADRIANA (generalized anxiety disorder); Dyslipidemia, goal LDL below 100; B12 deficiency; Cutaneous candidiasis; DM type 2 nursing care encounter ([facility]); Need for influenza vaccination; [place] of foot Allergies No Known Allergiesdocumented as of this [...] 0 Active Cholecalciferol (VITAMIN D3) 1.25 MG (94410 UT) CapsuleIndication s:Secondary hyperparathyroidi sm, non-renal (HCC) [...] 90 Tab 3 07/15/2019 Active nystatin (NYSTOP) 602426 UNIT/GM powderIndications :Cutaneous candidiasis Apply topically to [...] inj 1,000 mcgIndications:B12 deficiency 1000 mcg IM [id number] 07/15/2019 06/15/2020 Active documented as of this [...] calluses yourself. Talk to your doctor or nurse assessor (a doctor who specializes in foot care) [...] the area doesnt appear to be healing. [id number] [employer], [address] [place] [address]. All rights reserved. This information is not [...] her anxiety increased Feels nervous, very tearful [facility] ER 05/19/19 c/o anxiety, life stressors [...] A1c goal of less than 7.0% ([facility]) E11.9 Dyslipidemia, goal LDL below 100 E78.5 [...] file Gets together: Not on file Attends islam service: Not on file Active member of [...] Medication Sig Cholecalciferol (VITAMIN D3) 1.25 MG (19764 UT) Capsule Take 1 Cap by mouth [...] without long-term current use of insulin ([facility]) (Primary) - plan to stop Jardiance. Will discuss with [place] pharmacist to review options and contact pt when decision is made. Type 2 diabetes mellitus with hemoglobin A1c goal of less than 7.0% ([facility]) ADRIANA (generalized anxiety disorder) - busPIRone (BUSPAR) [...] 1,000 mcg Cutaneous candidiasis - nystatin (NYSTOP) 633893 UNIT/GM powder; Apply topically to affected area 3 times a day. DM type 2 nursing care encounter (HCC) - DIABETES FOOT EXAM Need for influenza vaccination - INFLUENZA VACC, IIV, SUBUNIT, ADJUVANTED, IM [place] of foot - recommended OTC corn pads [...] Medicine Lizeth Guzman PA-C 21 [address] [place] [phone] 06/15/2020 Appointment Radiology 06/29/2020 Office Visit Urology Jessy Ortiz, Indra Kuhn MD [address] [place] [address] [place] [phone] Health Maintenance Due Date Last Done Comments [...] for prophylactic vaccination and inoculation against influenza [place] of foot Corns and callosities documented in this encounter Administered Medications Active Administered Medications - up to 3 most recent administrations Medication Order MAR Action Action Date Dose Rate Site vitamin b-12 (CYANOCOBALAMIN) inj 1,000 mcg 1,000 mcg, Intramuscular, [id number], First dose on Sun07/15/19 at 1045, Last dose on Sun05/18/20 at 1045, For 12 doses Given 07/15/2019 10:15 AM EDT 1,000 mcg Deltoid Right Upper documented in this encounter Advance Directives Documents on File Type Date Recorded Patient Events And Promotions Assistant 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 Advanced Directive
--- OUTSIDE RECORDS SUMMARY | 2022-12-17 03:36 | External Medical Summary | Summary of Care ---
Author Name Unknown [place] [address] Care Team Providers Care Teaching Assistant Name Role Phone Naomi Farfan PA-C Primary Care Prov ider Reason for Visit * Reason Comments Medication Question 07/14 No Answer/No VM Encounter Details Date Type Department Care Team Description 07/15/2019 Telephone [facility] [place] 21 [facility] [place] [address] Lizeth Guzman PA-C 21 [facility] [place] [address] Medication Question (07/14 [...] 0 Active Cholecalciferol (VITAMIN D3) 1.25 MG (56911 UT) CapsuleIndications:S econdary hyperparathyroidism, non-renal (HCC) Take [...] 90 Tab 3 07/15/2019 Active nystatin (NYSTOP) 303677 UNIT/GM powderIndications:Cu taneous candidiasis Apply topically to [...] inj 1,000 mcgIndications:B12 deficiency 1000 mcg IM [id number] 07/15/2019 06/15/2020 Active documented as of this [...] Medicine Lizeth Guzman PA-C [address] [place] [address] [phone] 06/15/2020 Appointment Radiology 06/29/2020 Office Visit Urology Jessy Ortiz, Indra Kuhn MD [address] [place] [address] [phone] Health Maintenance Due Date Last Done Comments [...] on File Type Date Recorded Patient Machine Sprayer 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 Advanced Directive
--- OUTSIDE RECORDS SUMMARY | 2022-12-17 03:36 | External Medical Summary | Summary of Care ---
Author Name Unknown Organization [place] [address] Care Team Providers Care Airport Tower Controller Name Role Phone Naomi Farfan PA-C Primary Care Prov ider Reason for Visit * Reason Comments Appointment Encounter Details Date Type Department Care Team Description 06/20/2019 Telephone Urology Thee Gifford [address], [address] [place] [address] Via, Jakob Wilkinson PA-C [address] [place] [address] Appointment Allergies No Known Allergiesdocumented as of this encounter (statuses as of 07/10/2019) Medications Medication Sig Dispensed Refills Start Date [...] 06/14/2019 Active Cholecalciferol (VITAMIN D3) 1.25 MG (17633 UT) CapsuleIndications:Se condary hyperparathyroidism, non-renal (HCC) Take [...] as of this encounter (statuses as of 07/10/2019) Active Problems Problem Noted Date Type 2 [...] as of this encounter (statuses as of 07/10/2019) Resolved Problems Problem Noted Date Resolved Date COPD (chronic obstructive pu lmonary disease) with chronic bronchitis 05/27/2019 05/27/2019 documented as of this encounter (statuses as of 07/10/2019) Immunizations Name Administration Dates Next Due Pneumococcal [...] encounter Miscellaneous Notes * Telephone Encounter - Mallory Cortes MED ASSIST - 06/24/2019 1:24 PM EDT Patient is scheduled for 06/15/2020 for the u/s and will be coming to our office on 06/29/2020. Patient is aware of this information . Information was faxed to her regarding on what she needs to do for the U/s. * Telephone Encounter - Francy Momin LPN - 06/24/2019 11:07 AM EDT Pt aware. Please schedule US and follow up in one year * Telephone Encounter - Indra Jiménez Jr., MD - 06/24/2019 10:01 AM EDT The ultrasound demonstrated that the findings in the kidneys were non malignant cysts. This is something we can watch with another US in a year. The bladder findings seem related to incomplete filling not anything else. I would recommend seeing her in a year with a new US and if she has urinary symptoms like bleeding or burning she should be seen sooner. * Telephone Encounter - Francy Momin LPN - 06/24/2019 8:04 AM EDT Please review and compare US to CT scan and make recommendations. She was here for follow up last week but needed to be rescheduled due to the report not being read. Thank you! * Telephone Encounter - Francy Momin LPN - 06/20/2019 3:24 PM EST Call pts daughter with US results [phone]. Lia-pt canceled due to US results not being read. documented in this encounter Plan of Treatment Upcoming Encounters Date Type Specialty Care Team Description 07/15/2019 Office Visit Family Medicine Naomi Farfan PA-C [address] [place] [address] [phone] 10/06/2019 Appointment Radiology 06/15/2020 Appointment Radiology 06/29/2020 Office Visit Urology Jessy Ortiz, Indra Kuhn MD [address] [address] [place] [address] Scheduled Orders Name Type Priority Associated Diagnoses Orde r Schedule US RENAL Medical Imaging Routine Cyst of kidney, acquired Expected: 06/23/2020 (Approximate), Expires: 07/24/2020 Health Maintenance Due Date Last Done Comments [...] as of this encounter Visit Diagnoses Diagnosis Cyst of kidney, acquired- Primary Acquired cyst of kidney documented in this encounter Advance Directives Documents on File Type Date Recorded Patient Musician Instrumental 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 Advanced Directive
--- OUTSIDE RECORDS SUMMARY | 2022-12-17 03:37 | External Medical Summary | Summary of Care ---
Author [place] [address] Care Team Providers Care Health Officer Name Role Phone Naomi Farfan PA-C Primary Care Prov ider Reason for Visit * Reason Comments Abnormal Test Results a1c, b12, vit d 06/15, 06/16 Encounter Details Date Type Department Care Team Description 06/14/2019 Telephone [facility] [place] 21 [facility] [place] [address] Naomi Farfan PA-C 21 [place] [address] Abnormal Test Results (a1c, b12, vit d 06/15... Allergies No Known Allergiesdocumented as of this encounter (statuses as of 06/18/2019) Medications Medication Sig Dispensed Refills Start Date [...] 06/14/2019 Active Cholecalciferol (VITAMIN D3) 1.25 MG (04339 UT) CapsuleIndications:Se condary hyperparathyroidism, non-renal (HCC) Take [...] as of this encounter (statuses as of 06/18/2019) Active Problems Problem Noted Date Type 2 [...] as of this encounter (statuses as of 06/18/2019) Resolved Problems Problem Noted Date Resolved Date COPD (chronic obstructive pu lmonary disease) with chronic bronchitis 05/27/2019 05/27/2019 documented as of this encounter (statuses as of 06/18/2019) Immunizations Name Administration Dates Next Due Pneumococcal [...] Miscellaneous Notes * Telephone Encounter - Leslye Kathleen OSA - 06/18/2019 2:10 PM EST Pt calling back in. I scheduled pt for her B12 injections * Telephone Encounter - Radha Falcon LPN - 06/18/2019 10:09 AM EST Patient has been informed of below message and verbalized understanding. Please assist with setting up appt for B12 injections - pt was unsure of schedule at the time of call. Thanks! * Telephone Encounter - Sylwia Silva LPN - 06/18/2019 10:08 AM EST Pt sone calling to make sure no bad news for pt prior to pt calling back to get test resuts. Thank you * Telephone Encounter - Nilsa José LPN - 06/18/2019 9:57 AM EST No answer at patient's home number. No machine available. Called son who is listed as EC. Son states she will not answer if she does not know the # calling, he will call her and have her call into the clinic for info. * Telephone Encounter - Ashlie Macias LPN - 06/17/2019 10:39 AM EST Na pt #, unable to let msg * Telephone Encounter - Nilsa José LPN - 06/16/2019 10:00 AM EST No answer at patient's home number. No machine available. * Telephone Encounter - Naomi Farfan PA-C - 06/14/2019 4:10 PM EST Cholesterol and liver function are normal Kidney function is stable but consistent with chronic kidney disease (likely from h/o DM2 and HTN) Vitamin B12 is low Start oral vitamin B12 1000 mcg daily and recommend weekly B12 injections x 4 Repeat labs in 3 months Vitamin D is low and parathyroid hormone is high (likely from low vitamin D) Start vitamin D 50,000 IU weekly Repeat labs in 3 months A1C (three month average blood sugar) 7.4 and goal <7 for a diabetic Recommend starting jardiance 10 mg daily to help lower blood sugars in addition to metformin This may cause urinary frequency or yeast infection; call the clinic if yeast infection occurs Repeat labs in 3 months Medication e-prescribed to pharmacy as below. Pharmacy Selected: [facility] [address] [place] [address] [address] [facility] [place] Medication Orders Placed This Encounter Medications Cyanocobalamin (B-12-SL) 1000 MCG SL Tablet Sig: Place 1,000 mcg under the tongue daily. Dispense: 30 Tab Refill: 11 vitamin b-12 (CYANOCOBALAMIN) inj 1,000 mcg Cholecalciferol (VITAMIN D3) 1.25 MG (93142 UT) Capsule Sig: Take 1 Cap by mouth once a week for 90 days. Dispense: 12 Cap Refill: 0 empagliflozin (JARDIANCE) 10 MG TABS Sig: Take 1 Tab by mouth daily. Dispense: 30 Tab Refill: 11 Naomi Farfan PA-C documented in this encounter Plan of Treatment Upcoming Encounters Date Type Specialty Care Team Description 06/20/2019 Office Visit Urology ViaJakob PA-C [address] [place] [address] [phone] 06/23/2019 Nurse Only Ancillary Thee, Nurse Fp [address] [place] [address] [phone] 07/01/2019 Nurse Only Ancillary Thee, Nurse Annie [address] [place] [address] [phone] 07/08/2019 Nurse Only Ancillary Thee, Nurse Annie [address] [place] [address] [phone] 07/15/2019 Office Visit Family Medicine Naomi Farfan PA-C [address] [place] [id number] 10/06/2019 Appointment Radiology Scheduled Orders Name Type Priority Associated Diagnoses Orde r Schedule VITAMIN B12 Lab Routine B12 deficiency Expected: 09/12/2019 (Approximate), Expires: 06/13/2020 25-HYDROXY VITAMIN D Lab Routine Secondary hyperparathyroidism, non-renal (HCC) Expected: 09/12/2019 (Approximate), Expires: 06/13/2020 COMPR METAB PANEL Lab Routine Type 2 diabetes mellitus with hemoglobin A1c goal of less than 7.0% (HCC) Expected: 09/12/2019 (Approximate), Expires: 06/13/2020 HEMOGLOBIN A1C Lab Routine Type 2 diabetes mellitus with hemoglobin A1c goal of less than 7.0% (HCC) Expected: 09/12/2019 (Approximate), Expires: 06/13/2020 PTH, INTACT Lab Routine Secondary hyperparathyroidism, non-renal (HCC) Expected: 09/12/2019 (Approximate), Expires: 06/13/2020 Health Maintenance Due Date Last Done Comments DIABETES-EYE EXAM 1963 DIABETES-FOOT EXAM 1962 Zoster Vaccines (1 of 2) 1994 Influenza Vaccine (FLU shot) (#1) 2018 02/22/2016, 03/08/2015 DIABETES-HGBA1C EVERY 6 MONTHS 12/02/2019 06/03/2019 Yearly B-12 06/03/2020 06/03/2019 DIABETES-URINE MICROALBUMIN EVERY 12 MONTHS 06/06/2020 06/06/2019 DXA-SCREENING EVERY 7 YRS- E SMARTSET# [id number] TO ORDER 03/11/2026 03/11/2019 DTaP,Tdap,and Td Vaccines (3 - Td) 03/09/2027 03/09/2017, 03/24/2009 Pneumococcal Vaccine: 65+ Years Completed 05/27/2019, 03/08/2015, 06/30/2014 MENINGOCOCCAL (MENACTRA/MENVEO) Aged Out No longer eligible b ased on patient's age to complete this topic documented as of this encounter Implants Not on filedocumented as of this encounter Visit Diagnoses Diagnosis B12 deficiency- Primary Other B-complex deficiencies Type 2 diabetes mellitus with hemoglobin A1c goal of less than 7.0% (HCC) Secondary hyperparathyroidism, non-renal (HCC) Secondary hyperparathyroidism, non-renal documented in this encounter Advance Directives Documents on File Type Date Recorded Patient Eligibility Technician 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
--- OUTSIDE RECORDS SUMMARY | 2022-12-17 03:37 | External Medical Summary ---
Author Name Unknown Address [address] [place] [address] Phone Organization K01:[facility] [address] [id number] Laboratory Report Ordering Provider Test Date Status JOSE CRUZCIARA 06/03/2019 07:54:00 Final Observation Date Value Abnormality Reference (Units ) Status BUN 06/03/2019 18:12 15 6-20 (mg/dL) Final Creatinine 06/03/2019 18:12 1.0 0.5-1.0 (mg/ dL) Final E Glom Filt Rate 06/03/2019 18:12 53.1 Below low normal >60 Final Performing Location [facility] [address] [facility] [address]
--- OUTSIDE RECORDS SUMMARY | 2022-12-17 03:37 | External Medical Summary ---
Author Name Unknown Address [facility] [place] [address] Phone Organization K01:[place] [address] [place] [id number] Laboratory Report Ordering Provider Test Date Status CIARA BILLINGSLEY 06/03/2019 07:54:00 Final Observation Date Value Abnormality Reference (Units ) Status Vitamin B12 06/03/2019 18:44 171 Below low normal 232- 1245 (pg/mL) Final Performing Location [address] [address]
--- OUTSIDE RECORDS SUMMARY | 2022-12-17 03:37 | External Medical Summary ---
Author Name Unknown Address [address] [place] [address] [place] [address] Organization K1F:[address] [place] [address] Laboratory Report Ordering Provider Test Date Status ADRI HUA 05/19/2019 22:59:00 Final Observation Date Value Abnormality Reference (Units ) Status BUN 05/19/2019 23:19 17 6-20 (mg/dL) Final Creatinine 05/19/2019 23:19 1.1 Above high normal 0.5- 1.0 (mg/dL) Final E Glom Filt Rate 05/19/2019 23:19 48.0 Below low normal >60 Final Performing Location [address] [place] [address]
--- OUTSIDE RECORDS SUMMARY | 2022-12-17 03:37 | External Medical Summary | Summary of Care ---
Author Name [place] [address] Care Team Providers Care Services Account Manager Name Role Phone Naomi Farfan PA-C Primary Care Prov ider Reason for Visit * Reason Comments Abnormal Test Results a1c, b12, vit d 06/15, 06/16 Encounter Details Date Type Department Care Team Description 06/14/2019 Telephone [facility] [place] 21 [facility] [place] [address] Naomi Farfan PA-C 21 [place] [address] Abnormal Test Results (a1c, b12, vit [...] 06/14/2019 Active Cholecalciferol (VITAMIN D3) 1.25 MG (47925 UT) CapsuleIndications:Se condary hyperparathyroidism, non-renal (HCC) Take [...] to pharmacy as below. Pharmacy Selected: [facility] [address] [place] [address] [address] [facility] [place] Medication Orders Placed This Encounter Medications Cyanocobalamin (B-12-SL) 1000 MCG SL Tablet Sig: Place 1,000 mcg under the tongue daily. Dispense: 30 Tab Refill: 11 vitamin b-12 (CYANOCOBALAMIN) inj 1,000 mcg Cholecalciferol (VITAMIN D3) 1.25 MG (81005 UT) Capsule Sig: Take 1 Cap by mouth once a week for 90 days. Dispense: 12 Cap Refill: 0 empagliflozin (JARDIANCE) 10 MG TABS Sig: Take 1 Tab by mouth daily. Dispense: 30 Tab Refill: 11 Naomi Farfan PA-C documented in this encounter Plan of Treatment Upcoming Encounters Date Type Specialty Care Team Description 06/20/2019 Office Visit Urology ViaJakob PA-C [address] [place] [address] [phone] 06/23/2019 Nurse Only Ancillary Thee, Nurse Fp [address] [place] [address] [phone] 07/01/2019 Nurse Only Ancillary Thee, Nurse Annie [address] [place] [address] [phone] 07/08/2019 Nurse Only Ancillary Thee, Nurse Annie [address] [place] [address] [phone] 07/15/2019 Office Visit Family Medicine Naomi Farfan PA-C [address] [place] [id number] 10/06/2019 Appointment Radiology Scheduled Orders Name Type [...] Documents on File Type Date Recorded 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
--- OUTSIDE RECORDS SUMMARY | 2022-12-17 03:37 | External Medical Summary ---
Author Name Unknown Address [address] [place] [address] Phone Organization K07:[facility] [address] [facility] [place] [address] Laboratory Report Ordering Provider Test Date Status CIARA BILLINGSLEY 06/03/2019 07:54:00 Final Observation Date Value Abnormality Reference (Units ) Status Fasting status Patient Ql Reported 06/03/2019 07:56 >8 HOURS (hours) Final Triglyceride 06/03/2019 18:12 101 0-174 (mg/dL) Final Performing Location [facility] [address] [facility]. [place] [address]
--- OUTSIDE RECORDS SUMMARY | 2022-12-17 03:37 | External Medical Summary | Summary of Care ---
Author Name Unknown Organization [facility] [place] [address] Care Team Providers Care Oil Pit Attendant Name Role Phone Naomi Farfan PA-C Primary Care Prov ider Reason for Visit * Reason Comments Medication Administration vitamin B12 Encounter Details Date Type Department Care Team Description 06/23/2019 Nurse Only Ancillary 1st Floor, [place] 21 [facility] [address] [place], Nurse Fp [address] [place] [address] Medication Administration (vitamin B12) Allergies No Known Allergiesdocumented as of this encounter (statuses as of 06/23/2019) Medications Medication Sig Dispensed Refills Start Date [...] 06/14/2019 Active Cholecalciferol (VITAMIN D3) 1.25 MG (86043 UT) CapsuleIndications:Se condary hyperparathyroidism, non-renal (HCC) Take [...] as of this encounter (statuses as of 06/23/2019) Active Problems Problem Noted Date Type 2 [...] as of this encounter (statuses as of 06/23/2019) Resolved Problems Problem Noted Date Resolved Date COPD (chronic obstructive pu lmonary disease) with chronic bronchitis 05/27/2019 05/27/2019 documented as of this encounter (statuses as of 06/23/2019) Immunizations Name Administration Dates Next Due Pneumococcal [...] as of this encounter Nursing Notes * Brenda Chavez NRCMA - 06/23/2019 10:19 AM EDT Pre-Administration Time Out Procedure [...] Encounters Date Type Specialty Care Team Description 06/30/2019 Nurse Only Ancillary Nurse Annie [place] [address] [address] 07/08/2019 Nurse Only Ancillary Nurse Annie [place] [address] [id number] 07/15/2019 Office Visit Family Medicine Naomi Farfan PA-C [address] [place] [address] [phone] 10/06/2019 Appointment Radiology Health Maintenance Due Date Last Done Comments DIABETES-EYE EXAM 1963 DIABETES-FOOT EXAM 1962 Zoster Vaccines (1 of 2) 1994 Influenza Vaccine (FLU shot) (#1) 2018 02/22/2016, 03/08/2015 DIABETES-HGBA1C EVERY 6 MONTHS 12/02/2019 06/03/2019 Yearly B-12 06/03/2020 06/03/2019 DIABETES-URINE MICROALBUMIN EVERY 12 MONTHS 06/06/2020 06/06/2019 DXA-SCREENING EVERY 7 YRS-US E SMARTSET# [id number] [...] 07/05/19 at 1700, For 4 doses Given 06/23/2019 10:15 AM EDT 1,000 mcg Deltoid Left Upper documented in this encounter Advance Directives Documents on File Type Date Recorded 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
--- OUTSIDE RECORDS SUMMARY | 2022-12-17 03:37 | External Medical Summary ---
Author Name Unknown Address [facility] [place] [address] Phone Organization K01:[place] [address] [address] Laboratory Report Ordering Provider Test Date Status CIARA BILLINGSLEY 06/03/2019 07:54:00 Final Observation Date Value Abnormality Reference (Units ) Status 25-OH Vitamin D total 06/03/2019 18:44 10 Below low normal >19 (ng/mL) Final Performing Location [place] [id number]
--- OUTSIDE RECORDS SUMMARY | 2022-12-17 03:37 | External Medical Summary | Summary of Care ---
Author Name Unknown Organization [place] [address] Care Team Providers Care Swing Grinder Name Role Phone Naomi Farfan PA-C Primary Care Prov ider Encounter Details Date Type Department Care Team Description 05/28/2019 Scan Encounter Unspecified Department <No scans attached> Allergies No Known Allergiesdocumented as of this encounter (statuses as of 06/06/2019) Medications Medication Sig Dispensed Refills Start Date [...] for Anxiety. 60 Tab 0 05/27/2019 Active documented as of this encounter (statuses as of 06/06/2019) Active Problems Problem Noted Date Type 2 diabetes mellitus with hemoglobin A1c goal of less than 7.0% 05/27/2019 Dyslipidemia, goal LDL below 100 020 ADRIANA (generalized anxiety disorder) 05/27 S/P aortic valve replacement 05/27/2019 Right renal mass 05/27/2019 documented as of this encounter (statuses as of 06/06/2019) Resolved Problems Problem Noted Date Resolved Date COPD (chronic obstructive pu lmonary disease) with chronic bronchitis 05/27/2019 05/27/2019 documented as of this encounter (statuses as of 06/06/2019) Immunizations Name Administration Dates Next Due Pneumococcal Conjugate Vacc, 13 Valent (Prevnar) 05/27/2019 documented as of this encounter Social History [...] Travel End documented as of this encounter Plan of Treatment Upcoming Encounters Date Type Specialty Care Team Description 06/06/2019 Office Visit Urology Jakob Medeiros PA-C [address] [place] [address] 07/15/2019 Office Visit Family Medicine Naomi Farfan PA-C [address] [place] [address] [phone] 10/06/2019 Appointment Radiology Health Maintenance Due Date Last Done Comments DIABETES-EYE EXAM 1963 DIABETES-FOOT EXAM 1962 DIABETES-URINE MICROALBUMIN EVERY 12 MONTHS 1962 Zoster Vaccines (1 of 2) 1994 Influenza Vaccine (FLU shot) (#1) 2018 02/22/2016, 03/08/2015 DIABETES-HGBA1C EVERY 6 MONTHS 12/02/2019 06/03/2019 Pneumococcal Vaccine: 65+ Years (2 of 2 - PPSV23) 05/27/2020 05/27/2019 Yearly B-12 06/03/2020 06/03/2019 DXA-SCREENING EVERY 7 YRS-US E SMARTSET# [id number] TO ORDER 03/11/2026 03/11/2019 DTaP,Tdap,and Td Vaccines (3 - Td) 03/09/2027 03/09/2017, 03/24/2009 MENINGOCOCCAL (MENACTRA/MENVEO) Aged Out No longer eligible b ased on patient's age to complete this topic documented as of this encounter Implants Not on filedocumented as of this encounter Advance Directives Documents on File Type Date Recorded 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
--- OUTSIDE RECORDS SUMMARY | 2022-12-17 03:37 | External Medical Summary | Summary of Care ---
Author Name Unknown Organization [place] [address] Care Team Providers Care Director Of Guidance Name Role Phone Naomi Farfan PA-C Primary Care Prov ider Reason for Visit * Reason Comments Follow Up Encounter Created in Error Encounter Details Date Type Department Care Team Description 06/20/2019 Office Visit Urology Thee Gifford [address], [address] [place] [address] Via, Jakob Wilkinson PA-C [address] [facility] [address] [place] [address] Encounter created in error Allergies No Known Allergiesdocumented as of this encounter (statuses as of 06/20/2019) Medications Medication Sig Dispensed Refills Start Date [...] 06/14/2019 Active Cholecalciferol (VITAMIN D3) 1.25 MG (96769 UT) CapsuleIndications:Se condary hyperparathyroidism, non-renal (HCC) Take [...] as of this encounter (statuses as of 06/20/2019) Active Problems Problem Noted Date Type 2 [...] as of this encounter (statuses as of 06/20/2019) Resolved Problems Problem Noted Date Resolved Date COPD (chronic obstructive pu lmonary disease) with chronic bronchitis 05/27/2019 05/27/2019 documented as of this encounter (statuses as of 06/20/2019) Immunizations Name Administration Dates Next Due Pneumococcal [...] Travel End documented as of this encounter Progress Notes * Jakob Medeiros PA-C - 06/20/2019 2:50 PM EST Pt not seen. Appt cancelled. Results of ultrasound have not returned yet. We will call her when theresults come in. This encounter was created in error. 06/20/2019, 2:55 PM, Jakob Medeiros PA-C documented in this encounter Nursing Notes * Francy Momin LPN - 06/20/2019 2:33 PM EST Pt here today for f/u with US. She has no new c/o documented in this encounter Plan of Treatment Upcoming Encounters Date Type Specialty Care Team Description 06/23/2019 Nurse Only Ancillary Nurse Thee Fp [address] [place] [address] [phone] 07/01/2019 Nurse Only Ancillary Nurse Thee Fp [address] [place] [address] [phone] 07/08/2019 Nurse Only Ancillary Nurse Annie [place] [address] [id number] 07/15/2019 Office Visit Family Medicine Naomi Farfan PA-C [address] [address] [phone] 10/06/2019 Appointment Radiology Health Maintenance Due Date [...] of this encounter Visit Diagnoses Diagnosis Encounter Created In Error- Primary documented in this encounter Advance Directives Documents on File Type Date Recorded Patient Certification Engineer 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
--- OUTSIDE RECORDS SUMMARY | 2022-12-17 03:37 | External Medical Summary ---
Author Name Unknown Address [address] [place] [address] Phone Organization K01:[place] [address] [address] [facility] [address] Laboratory Report Ordering Provider Test Date Status SHUBHAM BILLINGSLEYFFEN 06/06/2019 16:28:00 Final Observation Date Value Abnormality Reference (Units ) Status Albumin, Urine 06/06/2019 22:00 <1.20 (mg/dL) Final Creat Ur-sCnc 06/06/2019 22:00 49 (mg/dL) Final Microalbumin / Creatinine Ratio 06/06/2019 22:00 <24 <30 (mg/g creat) Final Performing Location [facility] [address] [facility] [address]
--- OUTSIDE RECORDS SUMMARY | 2022-12-17 03:37 | External Medical Summary | Summary of Care ---
Author Name Unknown Organization [facility] [place] [address] Care Team Providers Care Technician Submarine Cable Equipment Name Role Phone Naomi Farfan PA-C Primary Care Prov ider Reason for Visit * Reason Comments Medication Administration B12 Encounter Details Date Type Department Care Team Description 06/30/2019 Nurse Only Ancillary 1st Floor, [place] [address] [place] [address] [place], Nurse Fp [address] [place] [address] Medication Administration (B12) Allergies No Known Allergiesdocumented as of this encounter (statuses as of 06/30/2019) Medications Medication Sig Dispensed Refills Start Date [...] 06/14/2019 Active Cholecalciferol (VITAMIN D3) 1.25 MG (56710 UT) CapsuleIndications:Se condary hyperparathyroidism, non-renal (HCC) Take [...] as of this encounter (statuses as of 06/30/2019) Active Problems Problem Noted Date Type 2 [...] as of this encounter (statuses as of 06/30/2019) Resolved Problems Problem Noted Date Resolved Date COPD (chronic obstructive pu lmonary disease) with chronic bronchitis 05/27/2019 05/27/2019 documented as of this encounter (statuses as of 06/30/2019) Immunizations Name Administration Dates Next Due Pneumococcal [...] as of this encounter Progress Notes * Janie Zuleta LPN - 06/30/2019 10:24 AM EDT Pre-Administration Time Out Procedure Performed: Yes Patient Identified (Ask Name/Date of ): Yes Does the patient have a fever greater than 101 degrees today? No Patient allergic to latex? No Has the patient ever fainted after receiving an injection? No VFC Stock: No Injection(s) verified: Yes, Injection Name: cyanocobalamin Verified Side and Site: Yes Verified Shot(s) with Parent(s)/Patient: Yes documented in this encounter Plan of Treatment Upcoming Encounters Date Type Specialty Care Team Description 07/08/2019 Nurse Only Ancillary Nurse Annie [place] [id number] 07/15/2019 Office Visit Family Medicine Naomi Farfan PA-C [address] [place] [id number] 10/06/2019 Appointment Radiology 06/15/2020 Appointment Radiology 06/29/2020 Office Visit Urology Jessy Ortiz, Indra Kuhn MD [address] [facility] [address] [place] [address] Health Maintenance Due [...] 07/05/19 at 1700, For 4 doses Given 06/30/2019 10:23 AM EDT 1,000 mcg Deltoid Left Upper documented in this encounter Advance Directives Documents on File Type Date Recorded 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
--- OUTSIDE RECORDS SUMMARY | 2022-12-17 03:37 | External Medical Summary ---
Author Name Unknown Address [facility] [place] [address] Phone Organization K01:[place] [address] [id number] Laboratory Report Ordering Provider Test Date Status JOSE CRUZCIARA 06/03/2019 07:54:00 Final Observation Date Value Abnormality Reference (Units ) Status HbA1C 06/03/2019 20:17 7.4 Above high normal 4.0-5 .6 (%) Final Performing Location [place] [id number]
--- OUTSIDE RECORDS SUMMARY | 2022-12-17 03:37 | External Medical Summary | Summary of Care ---
Author Name Unknown [place] [address] Care Team Providers Care History Department Chair Name Role Phone Naomi Farfan PA-C Primary Care Prov ider Encounter Details Date Type Department Care Team Description 07/07/[address] [facility] [place] 21 [facility] [place] [address] Naomi Farfan PA-C 21 [facility] [place] [address] Allergies No Known Allergiesdocumented as of this encounter (statuses as of 07/07/2019) Medications Medication Sig Dispensed Refills Start Date [...] 06/14/2019 Active Cholecalciferol (VITAMIN D3) 1.25 MG (37626 UT) CapsuleIndications:Se condary hyperparathyroidism, non-renal (HCC) Take [...] as of this encounter (statuses as of 07/07/2019) Active Problems Problem Noted Date Type 2 [...] as of this encounter (statuses as of 07/07/2019) Resolved Problems Problem Noted Date Resolved Date COPD (chronic obstructive pu lmonary disease) with chronic bronchitis 05/27/2019 05/27/2019 documented as of this encounter (statuses as of 07/07/2019) Immunizations Name Administration Dates Next Due Pneumococcal [...] Description 07/08/2019 Nurse Only Ancillary Nurse Annie [place] [address] [address] [phone] 07/15/2019 Office Visit Family Medicine Naomi Farfan PA-C [address] [place] [address] [phone] 10/06/2019 Appointment Radiology 06/15/2020 Appointment Radiology 06/29/2020 Office Visit Urology Indra Jiménez Jr., MD [address] [place] [address] [phone] Health Maintenance Due Date Last Done Comments [...] Associated Diagnosis Comments DIABETIC EYE EXAM Routine 06/30/2019 documented in this encounter Results * DIABETIC EYE EXAM (06/30/2019) Specimen Narrative Performed At Performing Organization Address City/State/Zipcod e Phone Number OUTSIDE LAB (SEE SCANNED REPORT) documented in this encounter Advance Directives Documents on File Type Date 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
--- OUTSIDE RECORDS SUMMARY | 2022-12-17 03:37 | External Medical Summary ---
Author Name Unknown Address [address] [id number] Phone Organization K01:[place] [address] [address] [place] [id number] Laboratory Report Ordering Provider Test Date Status CIARA BILLINGSLEY 06/03/2019 07:54:00 Final Observation Date Value Abnormality Reference (Units ) Status PTH-Intact [facility] 06/03/2019 18:44 94 Above high normal 15-65 (pg/mL) Final Performing Location [address] [address]
--- OUTSIDE RECORDS SUMMARY | 2022-12-17 03:37 | External Medical Summary | Summary of Care ---
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 Name Role Phone Jose Cruz Farfan PA-C Primary Care Prov ider Reason for Visit * Reason Comments NEW PATIENT Encounter Details Date Type Department Care Team Description 06/06/2019 Office Visit Urology Thee Gifford [address], [address] [place] [address] [address], Jakob Wilkinson PA-C 27 [facility] [place] [address] [place] [address] Right renal mass* Allergies No Known Allergiesdocumented as of this [...] Pressure - - Pulse - - Temperature 37.1 C (98.8 F) 06/06/2019 3:21 PM ES T Respiratory Rate - - Oxygen Saturation - - Inhaled Oxygen Concentration - - Weight 106.1 kg (234 lb) 06/06/2019 3:21 PM EST Height - - Body Mass Index 37.77 05/19/2019 10:05 PM EST documented in this encounter Progress Notes * Jakob Medeiros PA-C - 06/06/2019 3:44 PM EST [id number] PCP: JOSE CRUZ FARFAN 21 [facility] [place] [address] Sahra Rodríguez is a 74 year old female, who presents in referral for evaluation of a renal mass. She is here today for questionable right renal mass. She has occasional intermittent sharp pain in her LUQ, which prompted a CT of her abdomen. I reviewed the CT report and images. There is a 45 mm upper pole right renal cyst and a 49 x 32 mm hyperdense mass involving the interpolar right kidney. The latter may be be a hemorrhagic or hyperdense cyst, but we cannot rule out solid mass on the basis of the non-contrast CT. She has no voiding complaints. BUN Results: BUN(mg/dL) Madeline Dt/Tm Resulted Value Status 06/03/19 7:54A 06/03/19 15 FINAL 05/19/19 10:59P 05/19/19 17 FINAL 04/11/19 3:48A 04/11/19 11 FINAL Creatinine Results: CREATININE(mg/dL) Madeline Dt/Tm Resulted Value Status 06/03/19 7:54A 06/03/19 1.0 FINAL 05/19/19 10:59P 05/19/19 1.1* FINAL 04/11/19 3:48A 04/11/19 0.9 FINAL Current Outpatient Medications Medication Sig Dispense Refill aspirin enteric coated 81 MG TBEC Take 1 Tab by mouth daily. atorvaSTATin (LIPITOR) 80 MG Tablet Take 80 mg by mouth at bedtime. busPIRone (BUSPAR) 10 MG Tablet Take 1 Tab by mouth 2 times a day as needed for Anxiety. 60 Tab0 citalopram (CELEXA) 20 MG Tablet Take 1 [...] of patient's allergies indicates: No Known Allergies Social History: Social History Tobacco Use Smoking status: Never Smoker Smokeless tobacco: Never Used Substance Use Topics Alcohol use: Never Frequency: Never Vaping/E-Cigarette Use Vaping/E-Cigarette Use Never User Past Surgical History: Procedure Laterality Date REMOVE CATARACT, INSERT LENS PROSTH Bilateral REMOVE GALLBLADDER 1986 REPLACEMENT OF AORTIC VALVE ([place]JASON) 2010 Past Medical History: Diagnosis Date Anxiety 2014 Diabetes ([facility]) 2005 approx GERD (gastroesophageal reflux disease) Patient Active Problem List Diagnosis Code Type 2 diabetes mellitus with hemoglobin A1c goal of less than 7.0% ([facility]) E11.9 Dyslipidemia, goal LDL below 100 E78.5 ADRIANA (generalized anxiety disorder) F41.1 S/P aortic valve replacement Z95.2 Right renal mass N28.89 Past Surgical History:Reviewed Past Medical History Reviewed Patient's Family History: Reviewed ROS EXAM: No chest pain, No shortness of breath, No dyspnea on exertion, No orthopnea, No paroxysmal nocturnal dyspnea, No edema, No palpitations and No syncope ROS EXAM: No abdominal pain, No change in bowel habits, No significant heartburn, No significant change in appetite, No nausea, vomiting, diarrhea, or constipation, No hematemesis, No blood in stoolsor black tarry stools, No abdominal bloating or early satiety and No dysphagia ROS EXAM: Normal balance, No headaches, No seizures and No weakness ROS EXAM: No joint stiffness, No pain, No restriction of motion, No swelling, No redness, No heat, No weakness and No cramps ROS EXAM: Remainder of ROS Negative GENERAL EXAM: Alert and oriented x3 and no acute distress ABDOMEN: negative, Abdomen soft, non-tender. BS normal, No masses, organomegaly, hernia CARDIAC EXAM: normal and regular rate and rhythm NEUROLOGIC EXAM: negative EXTREMITY EXAM: negative HEENT EXAM: Normal RESPIRITIORY EXAM: unlabored RECTAL EXAM: deferred. EXAM: Deferred Impression/Plan: Right renal mass (Primary) She has 49 x 32 mm hyperdense mass in the right kidney on recent non-contrast CT. This may be a hyperdense cyst. We will evaluate further with renal ultrasound. If it remains indeterminate we will need to consider MRI. - US RENAL Jakob Medeiros PA-C 3:44 PM 06/06/2019 documented in this encounter Nursing Notes * Francy Momin LPN - 06/06/2019 3:21 PM EST She is here today for questionable right renal mass. She has occasional intermittent sharp pain in her LUQ, which prompted a CT of her abdomen. Denies gross hematuria, UTI or other urinary symptoms. documented in this encounter Plan of Treatment Upcoming Encounters Date Type Specialty Care Team Description 06/12/2019 Appointment Radiology 06/20/2019 Office Visit Urology Jakob Medeiros PA-C [address] [place] [phone] 07/15/2019 Office Visit Family Medicine Jose Cruz Farfan PA-C [address] [id number] 10/06/2019 Appointment Radiology Scheduled Orders Name Type Priority Associated Diagnoses Orde r Schedule US RENAL Medical Imaging Routine Right renal mass Ordered: 06/06/2019 Health Maintenance Due Date Last Done Comments DIABETES-EYE EXAM 1963 DIABETES-FOOT EXAM 1962 DIABETES-URINE MICROALBUMIN EVERY 12 MONTHS 1962 Zoster Vaccines (1 of 2) 1994 Influenza Vaccine (FLU shot) (#1) 2018 02/22/2016, 03/08/2015 DIABETES-HGBA1C EVERY 6 MONTHS 12/02/2019 06/03/2019 Pneumococcal Vaccine: 65+ Years (2 of 2 - PPSV23) 05/27/2020 05/27/2019 Yearly B-12 06/03/2020 06/03/2019 DXA-SCREENING EVERY 7 YRS- E SMARTSET# [id number] TO ORDER 03/11/2026 03/11/2019 DTaP,Tdap,and Td Vaccines (3 - Td) 03/09/2027 03/09/2017, 03/24/2009 MENINGOCOCCAL (MENACTRA/MENVEO) Aged Out No longer eligible b ased on patient's age to complete this topic documented as of this encounter Implants Not on filedocumented as of this encounter Visit Diagnoses Diagnosis Right renal mass- Primary Unspecified disorder of kidney and ureter documented in this encounter Advance Directives Documents on File Type Date 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
--- OUTSIDE RECORDS SUMMARY | 2022-12-17 03:37 | External Medical Summary ---
Author Name Unknown Address [address] [place] [address] [place] [address] Organization K1F:[address] [place] [address] Laboratory Report Ordering Provider Test Date Status ADRI HUA 05/19/2019 22:59:00 Final Observation Date Value Abnormality Reference (Units ) Status Troponin T 05/19/2019 23:18 19 Above high normal 0-14 (ng/L) Final Performing Location [address] [place] [address]
--- OUTSIDE RECORDS SUMMARY | 2022-12-17 03:37 | External Medical Summary | Summary of Care ---
Author Name Unknown [place] [address] Care Team Providers Care Lettuce Cutter Name Role Phone Naomi Farfan PA-C Primary Care Prov ider Reason for Visit * Reason Comments Advice No answer 06/26 Encounter Details Date Type Department Care Team Description 06/26/2019 [facility] [place] [address] Naomi Farfan PA-C 21 [place] [address] Advice (No answer 06/26) Allergies No Known Allergiesdocumented as of this [...] meals. 0 Active busPIRone (BUSPAR) 10 MG TabletIndications:GA D (generalized anxiety disorder) Take 1 Tab by mouth 2 times a day as needed for Anxiety. 60 Tab 0 05/27/2019 Active Cyanocobalamin (B-12-SL) 1000 MCG SL TabletIndications:B1 [address] 1,000 mcg under the tongue daily. 30 Tab 11 06/14/2019 Active Cholecalciferol (VITAMIN D3) 1.25 MG (99960 UT) CapsuleIndications:S econdary hyperparathyroidism, non-renal (HCC) Take 1 Cap by mouth once a week for 90 days. 12 Cap 0 06/14/2019 09/12/2019 Active empagliflozin (JARDIANCE) 10 MG TABSIndications:Type 2 diabetes mellitus with hemoglobin A1c goal of less than 7.0% (HCC) Take 1 Tab by mouth daily. 30 Tab 11 06/14/2019 Active fluconazole (DIFLUCAN) 150 MG Tablet Take 1 Tab by mouth once for 1 dose. 1 Tab 0 06/26/2019 06/26/2019 Hospital, Clinic, or Other Facility Administered Medication [...] Telephone Encounter - Kanika Rios CCMA - 06/30/2019 4:10 PM EDT Attempted to reach pt, no answer and unable to leave message. Called [facility] pharmacy in [place], pt picked up medication on 06/25. * Telephone Encounter - Kaylie Pulliam LPN - 06/27/2019 1:47 PM EDT No answer at patient's home number. No machine available. * Telephone Encounter - Kenyon Smith LPN - 06/26/2019 1:46 PM EDT Attempted to contact pt to make aware of below message. No answer. Unable to leave message d/t voicemail not being set up. * Telephone Encounter - Naomi Farfan PA-C - 06/26/2019 1:23 PM EDT Medication e-prescribed to pharmacy as below. Pharmacy Selected: [facility] [address] [place] [address]- [place] Medication Orders Placed This Encounter Medications fluconazole (DIFLUCAN) 150 MG Tablet Sig: Take 1 Tab by mouth once for 1 dose. Dispense: 1 Tab Refill: 0 Naomi Farfan PA-C * Telephone Encounter - Kenyon Smith LPN - 06/26/2019 12:52 PM EDT Attempted to contact pt to get more information on symptoms. No answer, unable to leave voicemail d/t no mailbox being set up. Please advise on below message. * Telephone Encounter - Taya Forde CPhT - 06/26/2019 12:41 PM EDT Patient called to report she has a yeast infection and is asking if medication can be ordered at [facility] please advise [phone] Thanks, Taya Forde [facility] Worker Pharmacy Refill Call Center 06/26/2019,12:42 PM documented in this encounter Plan of Treatment Upcoming Encounters Date Type Specialty Care Team Description 07/08/2019 Nurse Only Ancillary Nurse Annie [place] [address] [address] [phone] 07/15/2019 Office Visit Family Medicine Naomi Farfan PA-C [address] [phone] 10/06/2019 Appointment Radiology 06/15/2020 Appointment Radiology 06/29/2020 Office Visit Urology Jessy Ortiz, Indra Kuhn MD [address] [place] [address] [phone] Health Maintenance Due Date Last Done Comments [...] Documents on File Type Date Recorded 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
--- OUTSIDE RECORDS SUMMARY | 2022-12-17 03:37 | External Medical Summary | Summary of Care ---
Author Name Unknown [place] [address] Care Team Providers Care General Road Supervisor Name Role Phone Naomi Farfan PA-C Primary Care Prov ider Reason for Referral * Evaluate & Treat - Unlimited Visits (Within 10 days (routine)) Status Reason Specialty Diagnoses / Procedures Referred By Contact Referred To Contact Pending Review Specialty Services Required Ophthalmology Diagnoses Type 2 diabetes mellitus with hemoglobin A1c goal of less than 7.0% (HCC) Naomi Farfan [place] [address] * Evaluate & Treat - Unlimited Visits (Within 30 days (routine)) Status Reason Specialty Diagnoses / Procedures Referred By Contact Referred To Contact Pending Review Specialty Services Required Cardiovascular Medicine Diagnoses S/P aortic valve replacement Naomi Farfan PA-C [place] [address] Reason for Visit * Reason Comments NEW PATIENT establish, transfer from Dr Goran Ruiz Emergency Department Follow-Up [facility] 2/3 a nxiety Encounter Details Date Type Department Care Team Description 05/27/2019 [facility] [place] [address] Naomi Farfan PA-C [address] [facility] [place] [address] [phone] ADRIANA (generalized anxiety disorder)*; Type 2 diabetes mellitus with hemoglobin A1c goal of less than 7.0% (HCC); Dyslipidemia, goal LDL below 100; S/P aortic valve replacement; Right renal mass; Hypercalcemia; Severe obesity with body mass index (BMI) of 35.0 to 39.9 with serious comorbidity (HCC); Need for vaccination for zoster; Need for pneumococcal vaccination; Need for prophylactic vaccination and inoculation against influenza; Risk and functional assessment; Encounter for screening mammogram for breast cancer Allergies No Known Allergiesdocumented as of this encounter (statuses as of 05/27/2019) Medications Medication Sig Dispensed Refills Start Date [...] as of this encounter (statuses as of 05/27/2019) Active Problems Problem Noted Date Type 2 diabetes mellitus with hemoglobin A1c goal of less than 7.0% 05/27/2019 Dyslipidemia, goal LDL below 100 020 ADRIANA (generalized anxiety disorder) 05/27 S/P aortic valve replacement 05/27/2019 Right renal mass 05/27/2019 documented as of this encounter (statuses as of 05/27/2019) Resolved Problems Problem Noted Date Resolved Date COPD (chronic obstructive pu lmonary disease) with chronic bronchitis 05/27/2019 05/27/2019 documented as of this encounter (statuses as of 05/27/2019) Immunizations Name Administration Dates Next Due Pneumococcal [...] Sign Reading Time Taken Comments Blood Pressure 132/72 05/27/2019 3:43 PM EST Pulse 96 05/27/2019 3:06 PM EST Temperature 36.6 C (97.9 F) 05/27/2019 3:06 PM ES T Respiratory Rate 20 05/27/2019 3:06 PM EST Oxygen Saturation 96% 05/27/2019 3:06 PM EST Inhaled Oxygen Concentration - - Weight 105.2 kg (232 lb) 05/27/2019 3:06 PM EST Height - - Body Mass Index 37.45 05/19/2019 10:05 PM EST documented in this encounter Patient Instructions * Patient Instructions* Naomi Farfan PA-C - 05/27/2019 3:51 PM EST BMI (Body Mass Index) is the number obtained by dividing a person's weight in kilograms by his or her height in meters squared. BMI is used in determining obesity. BMI is not used to determine a person's actual percentage of body fat, but it is a good tool to records management engineer weight in terms of what is healthy and unhealthy. It is used to identify adults at increased risk for developing weight related medical problems. Estimated body mass index is 37.45 kg/m as calculated from the following: Height as of 05/19/19: 1.676 m (5' 6"). Weight as of this encounter: 105.2 kg (232 lb). Obesity - BMI 35 kg/m2 to [...] message program is also available. Go to [employer] and seethe message under '[employer] News' for more information and enrollment. Patient [...] permitted. Keep Honest, Accurate Food logs: * [email or web address] [email or web address] [email or web address] * [email or web address] * If you bite it - write [...] documented in this encounter Progress Notes * Naomi Farfan PA-C - 05/27/2019 3:18 PM EST Subjective: Sahra Rodríguez is a 74 year old female. Chief Complaint Patient presents with NEW PATIENT establish, transfer from Dr Goran Ruiz Emergency Department Follow-Up [facility] 05/19 anxiety HPI: Reports she was doing well on her medications Then she was then weaned off klonopin at the end of January by per PCP She was doing well even off the klonopin and then her son and daughter started fighting so her anxiety increased Feels nervous, very tearful [facility] ER 05/19/19 c/o anxiety, life stressors [...] to see urology for right renal mass ROS EXAM: CONSTITUTIONAL: No change in weight, No weakness, No fatigue and No fevers, sweats, or chills EYE: No eye pain, redness, discharge, No diplopia, No h/o glaucoma and h/o cataracts, going to schedule f/u with Dr. Juárez EARS: No ear pain, No drainage, No tinnitus or vertigo and No recent change in hearing NOSE: No history of frequent colds or sinusitis, No nasal stuffiness, No history of Hay Fever and No significant epistaxis MOUTH: No bleeding gums, No thrush or No sore throat NECK: No lumps or masses, No swollen glands, No recent swelling in thyroid area, No significant pain in neck and No h/o goiter or thyroid disease PULMONARY: No cough, sputum, or hemoptysis, No wheezing, No rales, No shortness of breath and No recent change in breathing CARDIOVASCULAR: No chest pain, No shortness of breath, No dyspnea on exertion, No orthopnea, No paroxysmal nocturnal dyspnea, No edema, No palpitations and No syncope BREASTS: No new breast lumps or masses, No severe breast pain, No nipple discharge, No recent change in shape/color and Performs self breast exam GASTROINTESTINAL: No abdominal pain, No change in bowel habits, No significant change in appetite, No nausea, vomiting, diarrhea, or constipation, No hematemesis, No blood in stools or black tarry stools, No abdominal bloating or early satiety, No dysphagia and states she had colonoscopy @ [facility] FEMALE: No STDs, No dysuria, No frequency, No incontinence, No irregular menstruation, No urgency and No vaginal discharge HEMATOLOGIC: No coagulation disorder, No anemia, No abnormal bleeding, No chills, No bruising, No HIV risk factors, No night sweats, No swollen nodes, No weight loss and No history of transfusion EXTREMITIES: No pain, redness or swelling on the joints SKIN/INTEGUMENTARY: No edema, No rash and No itching NEUROLOGIC: Normal balance, No headaches, No seizures and No weakness PSYCHIATRIC: No depression, No psychosis and + anxiety and stress ALLERGY/IMMUN: No allergic triggers, No sneeze, nasal itch, ocular symptoms of allergy, No reactions to insect sting, No chemical sensitivities and No Food Allergies ENDOCRINE: No heat intolerance, No cold intolerance, No thyroid trouble and No excessive thirst or urination SLEEP: usually doesn't have much trouble sleeping The following labs were reviewed with the patient. Results for orders placed or performed during the hospital encounter of 05/19/19 CBC/DIFF Result Value Ref Range WBC 9.48 4.00 - 10.80 K/uL RBC 4.52 3.85 - 5.15 M/uL HGB 12.6 12.0 - 15.3 g/dL HCT 40.1 36.0 - 45.2 % MCV 88.7 81.5 - 97.5 fL MCH 27.9 27.0 - 34.0 pg MCHC 31.4 (L) 32.0 - 36.0 g/dL RDW 13.6 11.5 - 15.5 % PLATELET COUNT 248 140 - 400 K/uL MPV 10.0 6.6 - 11.1 fL NRBC'S 0 0 /100 WBCs NEUTS 68.4 40 - 75 % LYMPHS 21.9 18 - 42 % MONOS 7.2 1 - 11 % EOS 1.8 0 - 6 % BASOS 0.5 0 - 2 % IMMATURE GRANULOCYTE 0.2 0 - 2 % ABS. NEUTS 6.48 1.8 - 7.7 K/uL ABS. LYMPHS 2.08 1.0 - 4.8 K/uL ABS. MONOS 0.68 0.0 - 1.1 K/uL ABS. EOS 0.17 0.0 - 0.7 K/uL ABS. BASOS 0.05 0.0 - 0.2 K/uL ABSOLUTE IMMATURE GRANULOCYTES 0.02 0.0 - 0.2 K/uL TSH Result Value Ref Range TSH 2.02 0.27 - 4.2 uIU/mL TROPONIN T, HIGH SENSITIVITY Result Value Ref Range TROPONIN T, HIGH SENSITIVITY 19 (H) 0 - 14 ng/L MAGNESIUM Result Value Ref Range MAGNESIUM 1.8 1.5 - 2.6 mg/dL COMPR METAB PANEL Result Value Ref Range BUN 17 6 - 20 mg/dL CREATININE 1.1 (H) 0.5 - 1.0 mg/dL E GLOM FILT RATE 48.0 (L) >60 SODIUM 139 135 - 146 mmol/L POTASSIUM 4.0 3.5 - 5.1 mmol/L CHLORIDE 101 98 - 107 mmol/L CO2 25 22 - 32 mmol/L ANION GAP 13 7 - 15 mmol/L GLUCOSE 230 (H) 70 - 120 mg/dL ALBUMIN 4.2 3.8 - 5.0 g/dL AST 17 10 - 35 U/L ALKALINE PHOSPHATASE 92 0 - 153 U/L BILIRUBIN, TOTAL 0.4 0 - 1.2 mg/dL CALCIUM 10.5 (H) 8.4 - 10.2 mg/dL PROTEIN 7.3 6.0 - 8.3 g/dL ALT 13 10 - 35 U/L TROPONIN T, HIGH SENSITIVITY Result Value Ref Range TROPONIN T, HIGH SENSITIVITY 17 (H) 0 - 14 ng/L PHM: Patient Active Problem List Diagnosis Code Type 2 diabetes mellitus with hemoglobin A1c goal of less than 7.0% ([facility]) E11.9 Dyslipidemia, goal LDL below 100 E78.5 ADRIANA (generalized anxiety disorder) F41.1 S/P aortic valve replacement Z95.2 Right renal mass N28.89 Current Outpatient Medications Medication Sig Dispense Refill [...] CPDR Take 1 Cap by mouth daily. Past Medical History: Diagnosis Date Anxiety 2015 Diabetes (HCC) 2005 approx GERD (gastroesophageal reflux disease) Social History Socioeconomic History Marital status: Spouse [...] file Gets together: Not on file Attends anabaptist service: Not on file Active member of [...] User Vaping/E-Cigarette Substances Vaping/E-Cigarette Devices Review of patient's allergies indicates: No Known Allergies Objective: BP 132/72 | Pulse 96 | Temp (Src) 97.9 (Tympanic) | Resp 20 | Wt 232 lbs (105.235kg) | BMI 37.45 kg/m | BSA 2.21 m | SaO2 96% General: alert, healthy, no distress, well nourished and well developed Head: Normocephalic, No masses, lesions, tenderness or abnormalities Eye Exam: PERRLA, EOMI, Conjunctiva are pink and non-injected, sclera clear Ears: External ears normal, Canals clear, TM's Normal Nose: no mucosal erythema, no mucosal edema, no purulent discharge Oropharynx: no exudate, no erythema, lips, buccal mucosa, and tongue normal and mucous membranes are moist Neck: supple, no adenopathy, thyroid normal size, non-tender, without nodularity Heart: regular rate & rhythm, no murmurs and no gallops Lungs: clear to auscultation Abdomen: abdomen soft, non-tender, normal bowel sounds and no masses or organomegaly Back: No CVA tenderness, no tenderness to percussion or palpation, Normal DTR's of patella bilaterally Extremities: no joint deformities, effusion, or inflammation, no edema, pulses intact Neuro Exam: alert & oriented x 3 with fluent speech, no focal motor/sensory deficits, gait normal, reflexes normal and symmetric Assessment/Plan: ADRIANA (generalized anxiety disorder) (Primary) - busPIRone (BUSPAR) 10 MG Tablet; Take 1 Tab by mouth 2 times a day as needed for Anxiety. Continue celexa Add buspar Declines counseling Do not recommend continued use of clonazepam, discussed risks of exterminator use, patient voiced understanding Type 2 diabetes mellitus with hemoglobin A1c goal of less than 7.0% ([facility]) - OPHTHALMOLOGY REFERRAL OP - HEMOGLOBIN A1C; Future; Expected date: 05/27/2019 - LIPID PANEL WITH DIRECT LDL IF TRIGLYCERIDE IS ELEVATED; Future; Expected date: 05/27/2019 - VITAMIN B12; Future; Expected date: 05/27/2019 - ALBUMIN / CREATININE RATIO, URINE; Future; Expected date: 05/27/2019 Dyslipidemia, goal LDL below 100 - COMPR METAB PANEL; Future; Expected date: 05/27/2019 - LIPID PANEL WITH DIRECT LDL IF TRIGLYCERIDE IS ELEVATED; Future; Expected date: 05/27/2019 On lipitor S/P aortic valve replacement - CARDIOLOGY REFERRAL OP Would like to return to Dr. Amos (?sp) Right renal mass Scheduled to see urology Hypercalcemia - COMPR METAB PANEL; Future; Expected date: 05/27/2019 - PTH, INTACT; Future; Expected date: 05/27/2019 - 25-HYDROXY VITAMIN D; Future; Expected date: 05/27/2019 Severe obesity with body mass index (BMI) of 35.0 to 39.9 with serious comorbidity (HCC) Patient couseling on weight management given. Need for vaccination for zoster Declines Need for pneumococcal vaccination - PNEUMOCOCCAL VACC, PCV13, HIGH RISK ADULTS, IM Need for prophylactic vaccination and inoculation against influenza Declines Risk and functional assessment - PAT SCRN FOR FALL RISK - PRES OR ABS OF URIN INCONT Encounter for screening mammogram for breast cancer - MAMMOGRAM SCREENING ANNALISE BILATERAL Follow Up: Return in about 6 weeks (around 07/08/2019), or if symptoms worsen or fail to improve, for recheck anxiety . | For: recheck anxiety | Check-out note: Request records from Dr. Zimmer Schedule cardiology return with Dr. Amos Schedule ophthalmology with Dr. Juárez Schedule mammogram Schedule fasting labs Naomi Farfan PA-C 05/27/2019 3:18 PM documented in this encounter Nursing Notes * Hedy Cole LPN - 05/27/2019 3:57 PM EST Pre-Administration Time Out Procedure Performed: Yes Patient Identified (Ask Name/Date of ): Yes Does the patient have a fever greater than 101 degrees today? No Patient allergic to latex? No Has the patient ever fainted after receiving an injection? No VFC Stock: No Immunization(s) verified: Yes, Immunization Name: Prevnar, VIS Sheet(s) given: Yes Verified Side and Site: Yes Verified Shot(s) with Parent(s)/Patient: Yes * Hedy Cole LPN - 05/27/2019 2:56 PM EST Chief Complaint Patient presents with NEW PATIENT establish, transfer from Dr Zimmer [facility] Follow-Up [facility] 2/3 anxiety documented in this encounter Plan of Treatment Upcoming Encounters Date Type Specialty Care Team Description 06/06/2019 Office Visit Urology Via, Jakob Wilkinson PA-C [address] [place] [address] [phone] 07/15/2019 Office Visit Family Medicine Naomi Farfan PA-C [address] [place] [address] [phone] 10/06/2019 Appointment Radiology Scheduled Orders Name Type Priority Associated Diagnoses Orde r Schedule COMPR METAB PANEL Lab Routine Dyslipidemia, goal LDL below 100 Hypercalcemia Expected: 05/27/2019 (Approximate), Expires: 05/26/2020 PTH, INTACT Lab Routine Hypercalcemia Expected: 05/27/2019 (Approximate), Expires: 05/26/2020 25-HYDROXY VITAMIN D Lab Routine Hypercalcemia Expected: 05/27/2019 (Approximate), Expires: 05/26/2020 HEMOGLOBIN A1C Lab Routine Type 2 diabetes mellitus with hemoglobin A1c goal of less than 7.0% (HCC) Expected: 05/27/2019 (Approximate), Expires: 05/26/2020 LIPID PANEL WITH DIRECT LDL IF TRIGLYCERIDE IS ELEVATED Lab Routine Type 2 diabetes mellitus with hemoglobin A1c goal of less than 7.0% (HCC) Dyslipidemia, goal LDL below 100 Expected: 05/27/2019 (Approximate), Expires: 05/27/2020 VITAMIN B12 Lab Routine Type 2 diabetes mellitus with hemoglobin A1c goal of less than 7.0% (HCC) Expected: 05/27/2019 (Approximate), Expires: 05/26/2020 ALBUMIN / CREATININE RATIO, URINE Lab Routine Type 2 diabetes mellitus with hemoglobin A1c goal of less than 7.0% (HCC) Expected: 05/27/2019 (Approximate), Expires: 05/26/2020 MAMMOGRAM SCREENING ANNALISE BILATERAL Medical Imaging Routine Encounter for screening mammogram for breast cancer Ordered: 05/27/2019 Scheduled Referrals Name Type Priority Associated Diagnoses Orde r Schedule CARDIOLOGY REFERRAL OP Referral Within 30 days (routine) S/P aortic valve replacement Ordered: 05/27/2019 OPHTHALMOLOGY REFERRAL OP Referral Within 10 days (routine) Type 2 diabetes mellitus with hemoglobin A1c goal of less than 7.0% (HCC) Ordered: 05/27/2019 Health Maintenance Due Date Last Done Comments Yearly B-12 1945 DIABETES-EYE EXAM 1962 DIABETES-FOOT EXAM 1962 DIABETES-HGBA1C EVERY 6 MONTHS 1962 DIABETES-URINE MICROALBUMIN EVERY 12 MONTHS 1962 Zoster Vaccines (1 of 2) 1994 Pneumococcal Vaccine: 65+ Years (1 of 2 - PCV13) 2009 Influenza Vaccine (FLU shot) (#1) 2018 02/22/2016, 03/08/2015 *DEPRESSION SCREENING,ANNUAL FOR PTS 12 AND OVER 01/24/2019 DXA-SCREENING EVERY 7 YRS-US E SMARTSET# [id number] TO ORDER 03/11/2026 03/11/2019 DTaP,Tdap,and Td Vaccines (3 - Td) 03/09/2027 03/09/2017, 03/24/2009 MENINGOCOCCAL (MENACTRA/MENVEO) Aged Out No longer eligible b ased on patient's age to complete this topic documented as of this encounter Implants Not on filedocumented as of this encounter Visit Diagnoses Diagnosis ADRINAA (generalized anxiety disorder)- Primary Generalized anxiety disorder Type 2 diabetes mellitus with hemoglobin A1c goal of less than 7.0% (HCC) Dyslipidemia, goal LDL below 100 Other and unspecified hyperlipidemia S/P aortic valve replacement Heart valve replaced by other means Right renal mass Unspecified disorder of kidney and ureter Hypercalcemia Severe obesity with body mass index (BMI) of 35.0 to 39.9 with serious comorbidity (HCC) Need for vaccination for zoster Need for prophylactic vaccination and inoculation against other viral diseases Need for pneumococcal vaccination Need for prophylactic vaccination against streptococcus pneumoniae (pneumococcus) Need for prophylactic vaccination and inoculation against influenza Risk and functional assessment Screening for unspecified condition Encounter for screening mammogram for breast cancer documented in this encounter Advance Directives Documents on File Type Date Recorded 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
--- OUTSIDE RECORDS SUMMARY | 2022-12-17 03:37 | External Medical Summary ---
Author Name Unknown Address [address] [place] [address] [place] [address] Organization K1F:[address] [place] [address] Laboratory Report Ordering Provider Test Date Status ADRI HUA 05/20/2019 00:01:00 Final Observation Date Value Abnormality Reference (Units ) Status Troponin T 05/20/2019 00:47 17 Above high normal 0-14 (ng/L) Final Performing Location [address] [place] [address]
--- OUTSIDE RECORDS SUMMARY | 2022-12-17 03:38 | External Medical Summary | Summary of Care ---
Author Name Unknown Organization [facility] [place] [address] Care Team Providers Care Open Hearth Helper Name Role Phone Terrence Zimmer MD Primary Care Provider Encounter Details Date Type Department Care Team Description 03/07/2019 Orders Only Pulmonary Function Lab, [facility] [address] [place], [place] [id number] Terrence Zimmer MD [address] [place] [address] [phone] Lung field abnormal finding on examination* Social History Tobacco Use Types Packs/Day Years Used Date Never Assessed Sex Assigned at Date Recorded Not on file Job Start Date Occupation Industry Not on file Not on file Not on file Travel History Travel Start Travel End documented as of this encounter Plan of Treatment Upcoming Encounters Date Type Specialty Care Team Description 03/11/2019 PulmDiagnostic Pulmonary Function [facility], Pulm Function Room [address], [place] [id number] 03/11/2019 Appointment Radiology Scheduled Orders Name Type Priority Associated Diagnoses Orde r Schedule SPIROMETRY B/A BRONCHODILATOR Procedures Routine Lung field abnormal finding on examination Expected: 03/11/2019, Expires: 04/06/2020 Health Maintenance Due Date Last Done Comments BREAST CANCER SCREENING DISCUSSION YEARLY AGES 40-75 1984 DIABETES SCREEN EVERY 3 YRS-AGE 45 AND ABOVE 1989 LIPID SCREEN EVERY 5 YRS-WOM EN AGE 45-75 1989 DXA-SCREENING EVERY 7 YRS-US E SMARTSET# 7369 TO ORDER 2009 Pneumococcal Vaccine: 65+ Years (1 of 2 - PCV13) 2009 Influenza Vaccine (FLU shot) (#1) 2018 02/22/2016, 03/08/2015 *DEPRESSION SCREENING,ANNUAL FOR PTS 12 AND OVER 01/24/2019 *COLORECTAL CANCER SCREENING (COLONOSCOPY 10 YEARS; SIGMOIDOSCOPY 5 YEARS; COLOGUARD 3 YEARS; FOBT 1 YEAR),AGES 50-75 02/27/2019 DTaP,Tdap,and Td Vaccines (3 - Td) 03/09/2027 03/09/2017, 03/24/2009 MENINGOCOCCAL (MENACTRA) Aged Out No longer eligible based on patient's age to complete this topic documented as of this encounter Implants Not on filedocumented as of this encounter Visit Diagnoses Diagnosis Lung field abnormal finding on examination- Primary Other nonspecific abnormal finding of lung field documented in this encounter Advance Directives Documents on File Type Date Recorded Patient Benefit Authorizer Expl anation Advanced Directive
--- OUTSIDE RECORDS SUMMARY | 2022-12-17 03:38 | External Medical Summary ---
Author Name Unknown Address [address] [place] [address] [place] [address] Organization K1F:[address] [place] [address] Laboratory Report Ordering Provider Test Date Status ADRI HUA 05/19/2019 22:59:00 Final Observation Date Value Abnormality Reference (Units ) Status TSH 05/19/2019 23:25 2.02 0.27-4.2 (uIU /mL) Final Performing Location [address] [place] [address]
--- OUTSIDE RECORDS SUMMARY | 2022-12-17 03:38 | External Medical Summary ---
Author Name Unknown Address [address] [place] [address] Organization K1F:[facility] [address] [place] [address] Laboratory Report Ordering Provider Test Date Status JEROMY ZACARIAS 04/11/2019 03:48:00 Final Observation Date Value Abnormality Reference (Units ) Status WBC, Total 04/11/2019 03:56 6.95 4.00-10.80 (K/uL) Final RBC 04/11/2019 03:56 4.36 3.85-5.15 (M/uL) Final Hemoglobin 04/11/2019 03:56 12.3 12.0-15.3 (g/dL) Final HCT 04/11/2019 03:56 38.9 36.0-45.2 (%) Final MCV 04/11/2019 03:56 89.2 81.5-97.5 (fL) Final MCH 04/11/2019 03:56 28.2 27.0-34.0 (pg) Final MCHC 04/11/2019 03:56 31.6 Below low normal 32.0-36.0 (g/dL) Final RDW 04/11/2019 03:56 13.5 11.5-15.5 (%) Final Platelets 04/11/2019 03:56 260 140-400 (K/uL) Final MPV 04/11/2019 03:56 10.0 6.6-11.1 (fL) Final nRBC/100 WBC Bld Auto-Rto 04/11/2019 03:56 0 0 (/100 WBCs) Final Segs 04/11/2019 03:56 66.6 40-75 (%) Final Lymphs % 04/11/2019 03:56 23.9 18-42 (%) Final Monos 04/11/2019 03:56 6.2 1-11 (%) Final Eosinophils 04/11/2019 03:56 2.4 0-6 (%) Final Basos 04/11/2019 03:56 0.6 0-2 (%) Final Immature Granulocyte, Percent 04/11/2019 03:56 0.3 0-2 (%) Final Neutrophils Bld 04/11/2019 03:56 4.63 1.8-7.7 (K/uL) Final Lymphs, absolute 04/11/2019 03:56 1.66 1.0-4.8 (K/uL) Final Monos, Abs 04/11/2019 03:56 0.43 0.0-1.1 (K/uL) Final Eos, Abs 04/11/2019 03:56 0.17 0.0-0.7 (K/uL) Final Basos, Abs 04/11/2019 03:56 0.04 0.0-0.2 (K/uL) Final Immature Granulocytes, Number 04/11/2019 03:56 0.02 0.0-0.2 (K/uL) Final Performing Location [address] [place] [address]
--- OUTSIDE RECORDS SUMMARY | 2022-12-17 03:38 | External Medical Summary | Summary of Care ---
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 Name Role Phone Terrence Zimmer MD Primary Care Provider Reason for Visit * Reason Comments Pulmonary Function Test Encounter Details Date Type Department Care Team Description 03/11/2019 PulmDiagnostic Pulmonary Function Lab, [facility] [address] [place] [address] Gl, Pulm Function Room [address] [place] [address] COPD (chronic obstructive pulmonary disease) with chronic bronchitis (HCC)*; Lung field abnormal finding on examination Allergies No Known Allergiesdocumented as of this encounter (statuses as of 03/11/2019) Medications Hospital, Clinic, or Other Facility Administered Medication Ordered Dose Route Frequency Start Date End Date Status albuterol sulfate (PROVENTIL) (2.5 MG/3ML) 0.083% inhalation solution 2.5 mg 2.5 mg NEBULIZER ONCE PRN 03/11/2019 03/11/2019 Ended documented as of this encounter (statuses as of 03/11/2019) Social History Tobacco Use Types Packs/Day Years Used Date Never Assessed Sex Assigned at Date Recorded Not on file Job Start Date Occupation Industry Not on file Not on file Not on file Travel History Travel Start Travel End documented as of this encounter Plan of Treatment Upcoming Encounters Date Type Specialty Care Team Description 03/11/2019 Hospital Encounter Radiology Health Maintenance Due Date Last Done Comments BREAST CANCER SCREENING DISCUSSION YEARLY AGES 40-75 1984 DIABETES SCREEN EVERY 3 YRS-AGE 45 AND ABOVE 1989 LIPID SCREEN EVERY 5 YRS-WOM EN AGE 45-75 1989 DXA-SCREENING EVERY 7 YRS-US E SMARTSET# [id number] TO ORDER 2009 Pneumococcal Vaccine: 65+ Years [...] as of this encounter Visit Diagnoses Diagnosis COPD (chronic obstructive pulmonary disease) with chronic bronchitis (HCC)- Primary Obstructive chronic bronchitis without exacerbation Lung field abnormal finding on examination Other nonspecific abnormal finding of lung field documented in this encounter Administered Medications Inactive Administered Medications - up to 3 most recent administrations Medication Order MAR Action Action Date Dose Rate Site albuterol sulfate (PROVENTIL) (2.5 MG/3ML) 0.083% inhalation solution 2.5 mg 2.5 mg, Nebulizer, ONCE PRN for pft, Starting 03/11/19 at 0000, Until 03/11/19 at 0934, For 1 dose Given 03/11/2019 9:34 AM EST 2.5 mg documented in this encounter Advance Directives Documents on File Type Date Recorded 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
--- OUTSIDE RECORDS SUMMARY | 2022-12-17 03:38 | External Medical Summary ---
Author Name Unknown Address [address] [place] [address] Organization K1F:[address] [place] [address] Laboratory Report Ordering Provider Test Date Status JEROMY ZACARIAS 04/11/2019 03:48:00 Final Observation Date Value Abnormality Reference (Units ) Status BUN 04/11/2019 04:29 11 6-20 (mg/dL) Final Creatinine 04/11/2019 04:29 0.9 0.5-1.0 (mg/ dL) Final E Glom Filt Rate 04/11/2019 04:29 59.8 Below low normal >60 Final Performing Location [address] [place] [address]
--- OUTSIDE RECORDS SUMMARY | 2022-12-17 03:38 | External Medical Summary ---
Author Name Unknown Address [address] [place] [address] [address] [place] [address] Organization K1F:[address] [place] [address] Laboratory Report Ordering Provider Test Date Status ADRI HUA 05/19/2019 22:59:00 Final Observation Date Value Abnormality Reference (Units ) Status Magnesium 05/19/2019 23:19 1.8 1.5-2.6 (mg/d L) Final Performing Location [address] [place] [address]
--- OUTSIDE RECORDS SUMMARY | 2022-12-17 03:38 | External Medical Summary ---
Author Name Unknown Address [address] [place] [address] Organization K1F:[address] [place] [address] Laboratory Report Ordering Provider Test Date Status JEROMY ZACARIAS 04/11/2019 04:34:00 Final Observation Date Value Abnormality Reference (Units ) Status Color Ur Auto 04/11/2019 04:49 YELLOW Normal YEL Final Clarity, Urine 04/11/2019 04:49 CLEAR Normal CLEAR Final Glucose Ur Strip[facility] 04/11/2019 04:49 NEGATIVE Normal NEG (mg/dL) Final Bilirubin, Urine 04/11/2019 04:49 NEGATIVE Normal NEG Final Ketones Ur Strip.[facility] 04/11/2019 04:49 NEGATIVE Normal NEG (mg/dL) Final Specific gravity, Urine 04/11/2019 04:49 1.008 1.003-1.030 Final Hemoglobin, qual. UA 04/11/2019 04:49 SMALL Abnormal NEG Final pH, Urine 04/11/2019 04:49 7.0 5.0-7.5 (units) Final Prot Ur Strip[facility] 04/11/2019 04:49 NEGATIVE Normal NEG (mg/dL) Final Urobilinogen Ur Strip[facility] 04/11/2019 04:49 NORMAL Normal NORM (mg/dL) Final Nitrite, Urine 04/11/2019 04:49 NEGATIVE Normal NEG Final Leukocyte Esterase, Urine 04/11/2019 04:49 NEGATIVE Normal NEG Final Bacteria area UrnS HPF 04/11/2019 04:57 51-100 Abnormal [id number] (/HPF) Final WBC, Urine 04/11/2019 04:57 0-2 U02 (/HPF) Final RBC, Urine 04/11/2019 04:57 3-5 Abnormal U02 (/HPF) Final Performing Location [address] [place] [address]
--- OUTSIDE RECORDS SUMMARY | 2022-12-17 03:38 | External Medical Summary ---
Author Name Unknown Address [address] [address] Organization K1F:[facility] [address] [place] [address] Laboratory Report Ordering Provider Test Date Status ADRI HUA 05/19/2019 22:59:00 Final Observation Date Value Abnormality Reference (Units ) Status WBC, Total 05/19/2019 23:03 9.48 4.00-10.80 (K/uL) Final RBC 05/19/2019 23:03 4.52 3.85-5.15 (M/uL) Final Hemoglobin 05/19/2019 23:03 12.6 12.0-15.3 (g/dL) Final HCT 05/19/2019 23:03 40.1 36.0-45.2 (%) Final MCV 05/19/2019 23:03 88.7 81.5-97.5 (fL) Final MCH 05/19/2019 23:03 27.9 27.0-34.0 (pg) Final MCHC 05/19/2019 23:03 31.4 Below low normal 32.0-36.0 (g/dL) Final RDW 05/19/2019 23:03 13.6 11.5-15.5 (%) Final Platelets 05/19/2019 23:03 248 140-400 (K/uL) Final MPV 05/19/2019 23:03 10.0 6.6-11.1 (fL) Final nRBC/100 WBC Bld Auto-Rto 05/19/2019 23:03 0 0 (/100 WBCs) Final Segs 05/19/2019 23:03 68.4 40-75 (%) Final Lymphs % 05/19/2019 23:03 21.9 18-42 (%) Final Monos 05/19/2019 23:03 7.2 1-11 (%) Final Eosinophils 05/19/2019 23:03 1.8 0-6 (%) Final Basos 05/19/2019 23:03 0.5 0-2 (%) Final Immature Granulocyte, Percent 05/19/2019 23:03 0.2 0-2 (%) Final Neutrophils Bld 05/19/2019 23:03 6.48 1.8-7.7 (K/uL) Final Lymphs, absolute 05/19/2019 23:03 2.08 1.0-4.8 (K/uL) Final Monos, Abs 05/19/2019 23:03 0.68 0.0-1.1 (K/uL) Final Eos, Abs 05/19/2019 23:03 0.17 0.0-0.7 (K/uL) Final Basos, Abs 05/19/2019 23:03 0.05 0.0-0.2 (K/uL) Final Immature Granulocytes, Number 05/19/2019 23:03 0.02 0.0-0.2 (K/uL) Final Performing Location [address] [place] [address]
--- OUTSIDE RECORDS SUMMARY | 2022-12-17 03:38 | External Medical Summary | Summary of Care ---
Author [place] [address] Care Team Providers Care Video Game Repair Technician Name Role Phone Terrence Zimmer MD Primary Care Provider [phone] Reason for Visit * Reason Comments Films Encounter Details Date Type Department Care Team Description 03/18/2019 Telephone Radiology, [address] [id number] Requisition, External Radiology [address] [place] [address] Films Allergies No Known Allergiesdocumented as of this encounter (statuses as of 03/18/2019) Social History Tobacco Use Types Packs/Day Years Used Date Never Assessed Sex Assigned at Date Recorded Not on file Job Start Date Occupation Industry Not on file Not on file Not on file Travel History Travel Start Travel End documented as of this encounter Miscellaneous Notes * Telephone Encounter - Lynn Ventura OSA - 03/18/2019 6:58 AM EST Requested CD of 01-24-19 Head/Neck being discarded due to being over the 30 day hold. CD -[id number]. CD going to [facility]. documented in this encounter Plan of Treatment Health Maintenance Due Date Last Done Comments BREAST CANCER SCREENING DISCUSSION YEARLY AGES 40-75 1984 DIABETES SCREEN EVERY 3 YRS-AGE 45 AND ABOVE 1989 LIPID SCREEN EVERY 5 YRS-WOM EN AGE 45-75 1989 Pneumococcal Vaccine: 65+ Years (1 of 2 - PCV13) 2009 Influenza Vaccine (FLU shot) (#1) 2018 02/22/2016, 03/08/2015 *DEPRESSION SCREENING,ANNUAL FOR PTS 12 AND OVER 01/24/2019 DXA-SCREENING EVERY 7 YRS-US E SMARTSET# [id number] TO ORDER 03/11/2026 03/11/2019 DTaP,Tdap,and Td Vaccines (3 - Td) 03/09/2027 03/09/2017, 03/24/2009 MENINGOCOCCAL (MENACTRA) Aged Out No longer eligible based on patient's age to complete this topic documented as of this encounter Implants Not on filedocumented as of this encounter Advance Directives Documents on File Type Date Recorded 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
--- OUTSIDE RECORDS SUMMARY | 2022-12-17 03:38 | External Medical Summary | Summary of Care ---
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 Name Role Phone Terrence Zimmer MD Primary Care Provider Encounter Details Date Type Department Care Team Description 01/22/2019 Orders Only Radiology, [facility] [address] [place] [address] Requisition, External Radiology [address] [place] [address] Thyroid nodule* Social History Tobacco Use Types Packs/Day Years Used Date Never Assessed Sex Assigned at Date Recorded Not on file Job Start Date Occupation Industry Not on file Not on file Not on file Travel History Travel Start Travel End documented as of this encounter Plan of Treatment Upcoming Encounters Date Type Specialty Care Team Description 01/24/2019 Appointment Radiology Scheduled Orders Name Type Priority Associated Diagnoses Orde r Schedule US HEAD AND NECK Medical Imaging Routine Thyroid nodule Ordered: 01/22/2019 Health Maintenance Due Date Last Done Comments DTaP,Tdap,and Td Vaccines (1 - Tdap) 1964 BREAST CANCER SCREENING DISC USSION YEARLY AGES 40-75 1984 DIABETES SCREEN EVERY 3 YRS- AGE 45 AND ABOVE 1989 LIPID SCREEN EVERY 5 YRS-WOM EN AGE 45-75 1989 DXA-SCREENING EVERY 7 YRS-US E SMARTSET# [id number] TO ORDER 2009 Pneumococcal Vaccine: 65+ Ye ars (1 of 2 - PCV13) 2009 Influenza Vaccine (FLU shot) (#1) 2018 MENINGOCOCCAL (MENACTRA) Aged Out No longer eligible based on patient's age to complete this topic documented as of this encounter Implants Not on filedocumented as of this encounter Visit Diagnoses Diagnosis Thyroid nodule- Primary Nontoxic uninodular goiter documented in this encounter
--- OUTSIDE RECORDS SUMMARY | 2022-12-17 03:38 | External Medical Summary | Summary of Care ---
Author Name [place] [address] Care Team Providers Care Curator Horticultural Museum Name Role Phone Terrence Zimmer MD Primary Care Provider Encounter Details Date Type Department Care Team Description 03/07/2019 Orders Only Radiology, [facility] [address] [place] [address] Requisition, External Radiology [address] [place], [place] [id number] Postmenopausal* Social History Tobacco Use Types Packs/Day Years Used Date Never Assessed Sex Assigned at Date Recorded Not on file Job Start Date Occupation Industry Not on file Not on file Not on file Travel History Travel Start Travel End documented as of this encounter Plan of Treatment Upcoming Encounters Date Type Specialty Care Team Description 03/11/2019 PulmDiagnostic Pulmonary Function [facility], Pulm Function Room [address] [place] [address] 03/11/2019 Appointment Radiology Scheduled Orders Name Type Priority Associated Diagnoses Orde r Schedule DEXA SCAN/BONE MINERAL AXIAL Medical Imaging Routine Postmenopausal Ordered: 03/07/2019 Health Maintenance Due Date Last Done Comments BREAST CANCER SCREENING DISCUSSION YEARLY AGES 40-75 1984 DIABETES SCREEN EVERY 3 YRS-AGE 45 AND ABOVE 1989 LIPID SCREEN EVERY 5 YRS-WOM EN AGE 45-75 1989 DXA-SCREENING EVERY 7 YRS- E SMARTSET# [id number] TO ORDER 2009 Pneumococcal Vaccine: 65+ Years [...] as of this encounter Visit Diagnoses Diagnosis Postmenopausal- Primary Asymptomatic postmenopausal status (age-related) (natural) documented in this encounter Advance Directives Documents on File Type Date Recorded Patient Medical Communication Specialist Expl anation Advanced Directive
--- NOTE | 2022-12-17 08:45 | Electrocardiogram Report ---
Test Reason : Blood Pressure : / mmHG Vent. Rate : 077 BPM Atrial Rate : 077 BPM P-R Int : 160 ms QRS Dur : 146 ms QT Int : 414 ms P-R-T Axes : 007 -10 143 degrees QTc Int : 468 ms Normal sinus rhythm Left bundle branch block Abnormal ECG No previous ECGs available Confirmed by Karel Kahn ([id number]) on 12/17/2022 8:45:01 AM Referred By: REFERRED SELF Confirmed By:Karel Kahn
== END 2022-12-14 14:25 | disposition home or self-care (01) ==
LOC: ED 11:25 → INTOOBSV 13:58 → EDINP 13:58 → SUATTDRO 13:58 → 2E 16:40